=== PATIENT | female | born 1945 | race Caucasian/White ===

== ENCOUNTER 2016-10-20 15:02 | Inpatient (IN) | payer MEDICARE, OTHER ==
[2016-10-20] MEDS ORDERED: METHYLPREDNISOLONE INJ 125 MG/2 ML SDV IV ONE (15:10)
[2016-10-20] MEDS ORDERED: ALBUTEROL SULFATE 0.083% NEB 2.5 MG/3 ML AMPUL NEB ONE ×2 (15:10→15:13)
[2016-10-20] MEDS ORDERED: IPRATROPIUM/ALBUTEROL 0.5-2.5 MG/3 ML AMPUL NEB ONE (15:10)
--- NOTE | 2016-10-20 15:21 | ER Document Report ---
ED Respiratory Problem - General Stated Complaint: ALTERED MENTAL STATUS Time Seen by Provider: 10/20/16 15:09 Mode of Arrival: Stretcher Information source: Relative, Emergency Med Personnel TRAVEL OUTSIDE OF THE [place] IN LAST 30 DAYS: No - HPI Patient complains to provider of: COPD, Short of breath, Other - Altered mental status Onset: Other - 2-3 days Duration: Worse/persistent Context: Smoker Short of Breath: Severe Chest pain/discomfort: Tightness Notes: Patient is a 71-year-old female with a history of COPD who continues to smoke, is on oxygen at home, brought to the emergency room by EMS for change in mental status, daughter who accompanied patient to the emergency room reports that patient has had a wet but nonproductive cough over the last 2-3 days and has been having worsening mentation, she has been taking cough syrup for her cough as well and other family members turn her oxygen up to 8 L at home, over the last 12 hours her condition has significantly worsened, daughter knows of no fever, patient has been hospitalized and intubated in the past for COPD exacerbation, patient sounded at time of evaluation, EMS reports that her socks was in the mid 70s when they arrived prompting them to place her on CPAP which apparently stopped working in route thank you to the emergency department, she did receive 1 breathing treatment in route as well - Related Data Allergies/Adverse Reactions: albuterol sulfate [From DuoNeb] Allergy (Verified 10/06/14 22:21) allopurinol [From Zyloprim] Allergy (Verified 10/06/14 22:21) alprazolam [From Xanax] Allergy (Verified 10/06/14 22:21) amitriptyline HCl [From Elavil] Allergy (Verified 10/06/14 22:21) atorvastatin calcium [From Lipitor] Allergy (Verified 10/06/14 22:21) belladonna alkaloids [From Bellergal-S] Allergy (Verified 10/06/14 22:21) bupivacaine [Bupivacaine] Allergy (Verified 10/06/14 22:21) cefuroxime axetil [From Ceftin] Allergy (Verified 10/06/14 22:21) celecoxib [From Celebrex] Allergy (Verified 10/06/14 22:21) cimetidine [From Tagamet] Allergy (Verified 10/06/14 22:21) ciprofloxacin [Ciprofloxacin] Allergy (Verified 10/06/14 22:21) codeine [Codeine] Allergy (Verified 10/06/14 22:21) doxepin HCl [From Sinequan] Allergy (Verified 10/06/14 22:21) ergotamine tartrate [From Bellergal-S] Allergy (Verified 10/06/14 22:21) fluoxetine HCl [From Prozac] Allergy (Verified 10/06/14 22:21) hydroxyzine HCl [From Atarax] Allergy (Verified 10/06/14 22:21) indigotindisulfonic acid [From Indigo [place]] Allergy (Verified 10/11/15 07:27) ipratropium bromide [From DuoNeb] Allergy (Verified 10/06/14 22:21) lemon oil Allergy (Verified 10/06/14 22:21) malathion Allergy (Verified 10/06/14 22:21) mefenamic acid Allergy (Verified 10/06/14 22:21) metformin HCl [From Glucophage] Allergy (Verified 10/06/14 22:21) metoclopramide HCl [From Reglan] Allergy (Verified 10/06/14 22:21) Milk Containing Products Allergy (Verified 10/06/14 22:21) morphine Allergy (Verified 10/06/14 22:21) naproxen sodium [From Anaprox] Allergy (Verified 10/06/14 22:21) nefazodone HCl [From Serzone] Allergy (Verified 10/06/14 22:21) peanut Allergy (Verified 10/06/14 22:21) phenobarbital [From Bellergal-S] Allergy (Verified 10/06/14 22:21) phenylephrine tannate [From Deconsal CT] Allergy (Verified 10/06/14 22:21) pyrilamine tannate [From Deconsal CT] Allergy (Verified 10/06/14 22:21) sertraline HCl [From Zoloft] Allergy (Verified 10/06/14 22:21) sucralfate [From Carafate] Allergy (Verified 10/06/14 22:21) tolterodine tartrate [From Detrol] Allergy (Verified 10/06/14 22:21) tramadol Allergy (Verified 10/06/14 22:21) trazodone HCl [From Desyrel] Allergy (Verified 10/06/14 22:21) my-e Allergy (Uncoded 10/06/14 22:21) renuzil Allergy (Uncoded 10/06/14 22:21) surgical steel Allergy (Uncoded 10/06/14 22:21) Past Medical History - General Information source: Relative, Emergency Med Personnel - Social History Smoking Status: Current Every Day Smoker Family History: DM, Hypertension - Past Medical History Cardiac Medical History: Reports: Hx Congestive Heart Failure, Hx Hypertension Pulmonary Medical History: Reports: Hx COPD Endocrine Medical History: Reports: Hx Diabetes Mellitus Type 2 Past Surgical History: Reports: Hx Cholecystectomy, Hx Orthopedic Surgery - L Wrist - Immunizations Immunizations up to date: No Hx Diphtheria, Pertussis, Tetanus Vaccination: No Review of Systems - Review of Systems -: Yes ROS unobtainable due to patient's medical condition Constitutional: No symptoms reported EENT: No symptoms reported Cardiovascular: No symptoms reported Respiratory: See HPI Gastrointestinal: No symptoms reported Genitourinary: No symptoms reported Female Genitourinary: No symptoms reported Musculoskeletal: No symptoms reported Skin: No symptoms reported Hematologic/Lymphatic: No symptoms reported Neurological/Psychological: Confusion Physical Exam - Vital signs Vitals: Resp Pulse Ox 26 H 96 10/20/16 15:20 10/20/16 15:20 Interpretation: Hypoxic, Tachypneic - General General appearance: Other - Obtunded In distress: Moderate - HEENT Head: Normocephalic, Atraumatic Eyes: Periorbital edema Conjunctiva: Normal Extraocular movements intact: Yes Eyelashes: Normal Pupils: PERRL Mucous membranes: Dry - Respiratory Respiratory status: Respiratory distress, Depressed respirations Breath sounds: Decreased air movement, Rhonchi, Wheezing - Cardiovascular Rhythm: Regular Heart sounds: Normal auscultation Murmur: No - Abdominal Inspection: Obese Distension: No distension Bowel sounds: Normal Tenderness: Nontender Organomegaly: No organomegaly - Back Back: Normal, Nontender - Extremities General upper extremity: Normal inspection, Nontender, Normal color, Normal ROM , Normal temperature General lower extremity: Normal inspection, Nontender, Normal color, Normal ROM , Normal temperature, Normal weight bearing. No: Roman's sign - Neurological Cognition: Inattentive Gustavo Coma Scale Eye Opening: To Voice Gering Coma Scale Verbal: Confused Gustavo Coma Scale Motor: Withdraws to Pain Gering Coma Scale Total: 11 - Skin Skin Temperature: Warm Skin Moisture: Dry Skin Color: Normal Location of irregularity: Other - Multiple scabbed wounds to bilateral upper and lower extremities Course - Re-evaluation Re-evalutation: 10/20/16 16:07 More responsive on reevaluation, she opens her eyes to verbal stimuli and answers yes or no questions appropriately 10/20/16 17:46 It was discussed with Dr. Gillette, primary care provider who agrees to admit to the ICU for further evaluation and treatment - Vital Signs Vital signs: Temp Pulse Resp BP Pulse Ox 18 97 10/20/16 16:30 10/20/16 16:30 - Laboratory Result Diagrams: 10/20/16 15:25 10/20/16 15:09 Laboratory results interpreted by me: 10/20/16 10/20/16 10/20/16 15:09 15:25 15:25 WBC 10.8 H MCHC 31.6 L RDW 16.8 H Plt Count 120 L Seg Neutrophils % 78.5 H Lymphocytes % 11.3 L Absolute Neutrophils 8.5 H VBG pH VBG pCO2 VBG HCO3 Potassium 6.3 H* BUN 37 H Est GFR (Non-Af Amer) 55 L Glucose 233 H Creatine Kinase 25 L NT-Pro-B Natriuret Pep 4370 H Urine Protein 10/20/16 10/20/16 10/20/16 15:25 16:15 17:16 WBC MCHC RDW Plt Count Seg Neutrophils % Lymphocytes % Absolute Neutrophils VBG pH 7.10 L* 7.10 L* VBG pCO2 114.7 H* 123.1 H* VBG HCO3 34.9 H 37.3 H Potassium BUN Est GFR (Non-Af Amer) Glucose Creatine Kinase NT-Pro-B Natriuret Pep Urine Protein 100 H - Diagnostic Test Radiology reviewed: Image reviewed, Reports reviewed - EKG Interpretation by Me EKG shows normal: Sinus rhythm Rate: Bradycardia When compared to previous EKG there are: No significant change Critical Care Note - Critical Care Note Total time excluding time spent on procedures (mins): 60 Comments: Patient was hypercapnic and hypoxic respiratory failure requiring BiPAP, close observation and ICU admission Discharge - Discharge Clinical Impression: Hyperkalemia Hypercapnic respiratory failure Qualifiers: Chronicity: acute Qualified Code(s): J96.02 - Acute respiratory failure with hypercapnia Pneumonia Qualifiers: Pneumonia type: due to unspecified organism Laterality: left Lung location: lower lobe of lung Qualified Code(s): J18.1 - Lobar pneumonia, unspecified organism Condition: Serious Disposition: ADMITTED INPATIENT Admitting Provider: [facility] Unit Admitted: ICU
[2016-10-20 16:02] LABS: VENOUS BLOOD BASE EXCESS 1.3 mmol/L; VENOUS BLOOD HCO3 34.9 mmol/L (20-32)
[2016-10-20 16:04] LABS: VENOUS BLOOD PH 7.1 (7.30-7.42)
[2016-10-20 16:05] LABS: ABSOLUTE BASOPHILS # (AUTO) 0.1 10^3/uL (0.0-0.2); ABSOLUTE EOSINOPHILS # (AUTO) 0.1 10^3/uL (0.0-0.6); ABSOLUTE LYMPHOCYTES (AUTO) 1.2 10^3/uL (0.5-4.7); ABSOLUTE MONOCYTES (AUTO) 0.9 10^3/uL (0.1-1.4); ABSOLUTE NEUT (AUTO) 8.5 10^3/uL (1.7-8.2); BASOPHILS % (AUTO) 0.6 % (0-2); EOSINOPHILS % (AUTO) 1.1 % (0-6); HEMATOCRIT 43.4 % (36.0-47.0); HEMOGLOBIN 13.7 g/dL (12.0-15.5); HGB HCT DIFFERENCE -2.3; LYMPHOCYTES % (AUTO) 11.3 % (13-45); MEAN CORPUSCULAR HEMOGLOBIN 30.7 pg (27.0-33.4); MEAN CORPUSCULAR HGB CONC 31.6 g/dL (32.0-36.0); MEAN CORPUSCULAR VOLUME 97 fl (80-97); MONOCYTES % (AUTO) 8.5 % (3-13); RED BLOOD COUNT 4.46 10^6/uL (3.72-5.28); RED CELL DISTRIBUTION WIDTH 16.8 % (11.5-14.0); SEGMENTED NEUTROPHILS % (AUTO) 78.5 % (42-78); VENOUS BLOOD PCO2 114.7 mmHg (35-63); WHITE BLOOD COUNT 10.8 10^3/uL (4.0-10.5)
--- NOTE | 2016-10-20 16:23 | RADIOLOGY REPORT (SQ) ---
EXAM DESCRIPTION: CHEST SINGLE VIEW COMPLETED DATE/TIME: 10/20/2016 3:51 pm REASON FOR STUDY: DB COMPARISON: 10/09/2015 and 04/06/2010. EXAM PARAMETERS: NUMBER OF VIEWS: One view. TECHNIQUE: Single frontal radiographic view of the chest acquired. RADIATION DOSE: NA LIMITATIONS: None. FINDINGS: LUNGS AND PLEURA: Diffuse interstitial prominence with asymmetric basilar densities, parti cularly on the right. No large pleural effusion. No pneumothorax. MEDIASTINUM AND HILAR STRUCTURES: No masses. Contour normal. HEART AND VASCULAR STRUCTURES: Cardiomegaly. BONES: No acute findings. HARDWARE: None in the chest. OTHER: No other significant finding. IMPRESSION: STABLE CARDIOMEGALY WITH APPARENT CHRONIC PARENCHYMAL SCARRING. RIGHT BASILAR DENSITY M AY BE CHRONIC OR COULD BE DUE TO PNEUMONIA. TECHNICAL DOCUMENTATION: JOB ID: [id number]
[2016-10-20 16:24] LABS: ALANINE AMINOTRANSFERASE 26 U/L (9-52); ALKALINE PHOSPHATASE 87 U/L (38-126); ANION GAP 7 (5-19); ASPARTATE AMINO TRANSFERASE 22 U/L (14-36); BILIRUBIN,DIRECT 0.4 mg/dL (0.0-0.4); BILIRUBIN,TOTAL 0.5 mg/dL (0.2-1.3); BLOOD UREA NITROGEN 37 mg/dL (7-20); CARBON DIOXIDE 30 mmol/L (22-30); CHLORIDE 104 mmol/L (98-107); CREATINE KINASE 25 U/L (30-135); GLUCOSE 233 mg/dL (75-110); SODIUM 141.4 mmol/L (137-145); TOTAL PROTEIN 7.8 g/dL (6.3-8.2)
[2016-10-20 16:26] LABS: ALCOHOL < 10 mg/dL (NONE DETECTED)
[2016-10-20 16:27] LABS: POTASSIUM 6.3 mmol/L (3.6-5.0)
[2016-10-20] MEDS ORDERED: CEFTRIAXONE 1 GM/D5W RTU 1 GM/50 ML RTUPB IV ONE (16:27)
[2016-10-20] MEDS ORDERED: AZITHROMYCIN INJ 500 MG VIAL IV ONE (16:27)
[2016-10-20] MEDS ORDERED: DEXTROSE 50%-WATER 25 GM/50 ML DISP.SYRIN IV ONE (16:28)
[2016-10-20] MEDS ORDERED: CALCIUM GLUCONATE 1000 MG/10 ML INJ IV ONE (16:28)
[2016-10-20] MEDS ORDERED: INSULIN REG, HUMAN 100 UNIT/ML 3 ML VIAL (PYX) IV ONE (16:28)
[2016-10-20 16:30] LABS: CREATINE KINASE MB 2.13 ng/mL (<4.55)
[2016-10-20 16:34] LABS: TROPONIN I < 0.012 ng/mL
[2016-10-20 17:19] LABS: APPEARANCE,URINE SLIGHTLY-CLOUDY; BILIRUBIN,URINE NEGATIVE (NEGATIVE); GLUCOSE, URINE NEGATIVE (NEGATIVE); KETONES,URINE NEGATIVE (NEGATIVE); LEUKOCYTE ESTERASE,URINE NEGATIVE (NEGATIVE); NITRITE,URINE NEGATIVE (NEGATIVE); PROTEIN,URINE 100 mg/dL (NEGATIVE); URINE SPECIFIC GRAVITY 1.021; UROBILINOGEN,URINE NEGATIVE mg/dL (<2.0)
[2016-10-20 17:28] LABS: URINE BARBITURATES SCREEN NEGATIVE; URINE METHADONE SCREEN NEGATIVE; URINE OPIATES LOW NEGATIVE; URINE PHENCYCLIDINE SCREEN NEGATIVE
[2016-10-20 17:34] LABS: VENOUS BLOOD BASE EXCESS 3.2 mmol/L; VENOUS BLOOD HCO3 37.3 mmol/L (20-32)
[2016-10-20 17:37] LABS: VENOUS BLOOD PH 7.1 (7.30-7.42)
[2016-10-20 17:38] LABS: VENOUS BLOOD PCO2 123.1 mmHg (35-63)
--- NOTE | 2016-10-20 19:31 | EKG REPORT ---
SEVERITY:- ABNORMAL ECG - SINUS RHYTHM PROBABLE LEFT ATRIAL ABNORMALITY RIGHT AXIS DEVIATION NONSPECIFIC T ABNORMALITIES, LATERAL LEADS : Confirmed by: Zeeshan Castaneda MD 20-Oct-2016 19:30:31
[2016-10-20] MEDS ORDERED: NORMAL SALINE 1000 ML 1,000 ML IV PRN (20:20)
[2016-10-20] MEDS ORDERED: DEXTROSE 40% GEL 15 GM TUBE PO PRN ×2 (20:28)
[2016-10-20] MEDS ORDERED: GLUCAGON,HUMAN RECOMB 1 MG INJ IM PRN (20:28)
[2016-10-20] MEDS ORDERED: DEXTROSE 50%-WATER 25 GM/50 ML DISP.SYRIN IV PRN ×2 (20:28)
[2016-10-20] MEDS ORDERED: ROCURONIUM BROMIDE INJ 50 MG/5 ML VIAL IV ONE ×2 (20:29→20:45)
[2016-10-20] MEDS ORDERED: ETOMIDATE INJ/PF 20 MG/10 ML SDV IV ONE (20:29)
[2016-10-20] MEDS ORDERED: NORMAL SALINE 1000 ML 1,000 ML IV ONE (20:30)
--- NOTE | 2016-10-20 20:54 | RADIOLOGY REPORT (SQ) ---
EXAM DESCRIPTION: CHEST SINGLE VIEW COMPLETED DATE/TIME: 10/20/2016 8:42 pm REASON FOR STUDY: intubated COMPARISON: 10/20/2016 at 1545 hours NUMBER OF VIEWS: One view. TECHNIQUE: Single frontal radiographic image of the chest acquired. LIMITATIONS: None. FINDINGS: ENDOTRACHEAL TUBE: Appropriate location with tip overlying the lower trachea, approximatel y 2.9 cm above the bernice. OTHER SUPPORT DEVICES: Nasogastric catheter is present with tip overlying the body of the stomach. CHANGES IN RADIOGRAPHIC FINDINGS: Increased bilateral confluent and interstitial opacities. No pneu mothorax. Small left pleural effusion. . HARDWARE: None in the chest. OTHER: No other significant finding. IMPRESSION: Appropriate ETT location with tip overlying the lower trachea, approximately 2.9 cm abov e the bernice.Increased bilateral confluent and interstitial opacities. No pneumothorax. Small left pleural effusion. TECHNICAL DOCUMENTATION: JOB ID: [id number] [employer]- All Rights Reserved
[2016-10-20] MEDS: PROPOFOL 100 ML IV PRN (20:55)
[2016-10-20] MEDS ORDERED: AZITHROMYCIN 500 MG in DEXTROSE 5%-WATER 250 ML IV SCH (22:00)
[2016-10-20 22:19] LABS: HEMATOCRIT 45.1 % (36.0-47.0); HEMOGLOBIN 14.1 g/dL (12.0-15.5); HGB HCT DIFFERENCE -2.8; MEAN CORPUSCULAR HEMOGLOBIN 29.9 pg (27.0-33.4); MEAN CORPUSCULAR HGB CONC 31.1 g/dL (32.0-36.0); MEAN CORPUSCULAR VOLUME 96 fl (80-97); RED BLOOD COUNT 4.71 10^6/uL (3.72-5.28); RED CELL DISTRIBUTION WIDTH 16.3 % (11.5-14.0); WHITE BLOOD COUNT 11.1 10^3/uL (4.0-10.5)
[2016-10-20 22:28] LABS: PROTHROMBIN TIME 14.1 SEC (11.4-15.4)
[2016-10-20 22:29] LABS: PARTIAL THROMBOPLASTIN TIME 34.5 SEC (23.5-35.8)
[2016-10-20 22:39] LABS: ALANINE AMINOTRANSFERASE 25 U/L (9-52); ALBUMIN 3.7 g/dL (3.5-5.0); ALKALINE PHOSPHATASE 87 U/L (38-126); AMYLASE 54 U/L (30-110); ANION GAP 8 (5-19); ASPARTATE AMINO TRANSFERASE 23 U/L (14-36); BILIRUBIN,DIRECT 0.5 mg/dL (0.0-0.4); BILIRUBIN,TOTAL 0.7 mg/dL (0.2-1.3); BLOOD UREA NITROGEN 31 mg/dL (7-20); CALCIUM 9.2 mg/dL (8.4-10.2); CARBON DIOXIDE 28 mmol/L (22-30); CHLORIDE 105 mmol/L (98-107); CREATININE RESULT 0.84 mg/dL (0.52-1.25); GLUCOSE 203 mg/dL (75-110); LIPASE 46.7 U/L (23-300); MAGNESIUM 2.1 mg/dL (1.6-2.3); PHOSPHORUS 2.7 mg/dL (2.5-4.5); SODIUM 140.9 mmol/L (137-145); TOTAL PROTEIN 7.2 g/dL (6.3-8.2)
[2016-10-20 22:45] LABS: BASOPHILS % (MANUAL) 0 % (0-2); EOSINOPHILS % (MANUAL) 1 % (0-6); LYMPHOCYTES % (MANUAL) 6 % (13-45); TOTAL CELLS COUNTED 100; TOXIC GRANULATION SLIGHT
[2016-10-20 22:46] LABS: ANISOCYTOSIS 1+; POIKILOCYTOSIS SLIGHT
[2016-10-20 22:49] LABS: POTASSIUM 6.1 mmol/L (3.6-5.0)
[2016-10-20 22:54] LABS: TROPONIN I < 0.012 ng/mL
[2016-10-20 23:10] LABS: THYROID STIMULATING HORMONE 2.58 uIU/mL (0.47-4.68)
[2016-10-20 23:40] LABS: ARTERIAL BLOOD BASE EXCESS 1.2 mmol/L; ARTERIAL BLOOD O2 SATURATION 91.2 % (94-98)
[2016-10-21] MEDS: PROPOFOL 100 ML IV PRN ×6 (00:34→21:08)
[2016-10-21] MEDS: METHYLPREDNISOLONE INJ 125 MG/2 ML SDV IV SCH ×6 (00:41→21:07)
[2016-10-21 04:43] LABS: ABSOLUTE LYMPHOCYTES (AUTO) 0.7 10^3/uL (0.5-4.7); ABSOLUTE MONOCYTES (AUTO) 0.2 10^3/uL (0.1-1.4); ABSOLUTE NEUT (AUTO) 6.6 10^3/uL (1.7-8.2); BASOPHILS % (AUTO) 0.2 % (0-2); EOSINOPHILS % (AUTO) 0.4 % (0-6); HEMATOCRIT 41.5 % (36.0-47.0); HGB HCT DIFFERENCE -2.5; MEAN CORPUSCULAR HEMOGLOBIN 29.7 pg (27.0-33.4); MEAN CORPUSCULAR HGB CONC 31.2 g/dL (32.0-36.0); MEAN CORPUSCULAR VOLUME 95 fl (80-97); MONOCYTES % (AUTO) 2.4 % (3-13); RED BLOOD COUNT 4.36 10^6/uL (3.72-5.28); RED CELL DISTRIBUTION WIDTH 16.3 % (11.5-14.0); WHITE BLOOD COUNT 7.5 10^3/uL (4.0-10.5)
[2016-10-21 05:05] LABS: CREATINE KINASE MB 1.78 ng/mL (<4.55)
[2016-10-21 05:07] LABS: TROPONIN I < 0.012 ng/mL
[2016-10-21 05:43] LABS: ARTERIAL BLOOD BASE EXCESS 4.9 mmol/L
[2016-10-21 05:58] LABS: ALANINE AMINOTRANSFERASE 20 U/L (9-52); ALBUMIN 2.7 g/dL (3.5-5.0); ALKALINE PHOSPHATASE 67 U/L (38-126); ANION GAP 5 (5-19); ASPARTATE AMINO TRANSFERASE 13 U/L (14-36); BILIRUBIN,DIRECT 0.4 mg/dL (0.0-0.4); BILIRUBIN,TOTAL 0.5 mg/dL (0.2-1.3); BLOOD UREA NITROGEN 22 mg/dL (7-20); CALCIUM 8.6 mg/dL (8.4-10.2); CARBON DIOXIDE 27 mmol/L (22-30); CHLORIDE 107 mmol/L (98-107); CHOLESTEROL 104.16 mg/dL (0-200); CREATININE RESULT 0.64 mg/dL (0.52-1.25); Direct HDL 32 mg/dL (>40); GLUCOSE 178 mg/dL (75-110); SODIUM 138.9 mmol/L (137-145); TOTAL PROTEIN 5.4 g/dL (6.3-8.2); TRIGLYCERIDES 101 mg/dL (<150)
[2016-10-21 06:09] LABS: DIRECT LDL 65 mg/dL (<100)
[2016-10-21 06:11] LABS: CREATINE KINASE < 20 U/L (30-135)
[2016-10-21 06:20] LABS: POTASSIUM 4.7 mmol/L (3.6-5.0)
[2016-10-21] MEDS: LEVOTHYROXINE SODIUM 0.1 MG TABLET PO SCH (09:32)
[2016-10-21] MEDS: LEVOTHYROXINE SODIUM 0.05 MG TABLET PO SCH (09:33)
[2016-10-21] MEDS: ENOXAPARIN SODIUM INJ 30 MG/0.3 ML DISP.SYRIN SUBCUT SCH (09:33)
[2016-10-21 11:36] LABS: ARTERIAL BLOOD BASE EXCESS 3.9 mmol/L; ARTERIAL BLOOD O2 SATURATION 90.1 % (94-98)
--- NOTE | 2016-10-21 11:58 | RADIOLOGY REPORT (SQ) ---
EXAM DESCRIPTION: CHEST SINGLE VIEW COMPLETED DATE/TIME: 10/21/2016 11:43 am REASON FOR STUDY: mechanical ventilation COMPARISON: 10/20/2016. FINDINGS: AP portable single view chest semi upright. Timed approximately 1131 hours. Endotracheal and nasogastric tubes appropriate. Slightly improved interstitial pattern and vascular congestion throughout the lungs. Some persistent airspace disease left mid lung zone and base. No overt pneumothorax. IMPRESSION: Slightly improved aeration as above. This suggests improving edema. Appropriate lines and tubes. TECHNICAL DOCUMENTATION: JOB ID: [id number]
[2016-10-21 12:16] LABS: CREATINE KINASE MB 1.69 ng/mL (<4.55); TROPONIN I 0.02 ng/mL
--- NOTE | 2016-10-21 13:14 | PDOC H&P ---
History of Present Illness Admission Date/PCP: 10/20/16 20:20 History of Present Illness: GABINO ALEXANDER is a 71 year old female, she has a history of chronic obstructive pulmonary disease, recalcitrant smoker, she was brought to the emergency room by EMS for evaluation of altered mental status and respiratory symptoms. She was accompanied by her daughter, she stated that patient has had productive cough for the last few days in the last 1-2 days she has been having worsening mentation, the family members are at increased oxygen up to 8 L at home in the last 12 hours her condition has worsened significantly since then. She was evaluated in the emergency room she had venous blood gas in the ER that showed PCO2 over 100, she was managed initially in the emergency room with positive pressure ventilation, BiPAP, she showed improvement initially and it was decided to admit to intermediate care unit. Her condition got worse, she became poorly responsive, the PCO2 increased it was decided at that time to tracheally intubate her on mechanical ventilation. The initial vent setting was SIMV of 12, tidal volume 600 Po2 100% pressure support 10,PEEP 5. She was admitted in intensive care unit. When I saw the patient she was intubated no history could be obtained from the patient. The chart was reviewed, she is well -known to me she is a recalcitrant smoker, she has COPD with pulmonary fibrosis the comprehensive metabolic panel revealed potassium 6.3, serum creatinine was 1.0 suggesting that the hyperkalemia is most likely from transcellular shift of potassium. Past Medical History Cardiac Medical History: Reports: Peripheral Vascular Disease Pulmonary Medical History: Reports: Chronic Obstructive Pulmonary Disease (COPD) Endocrine Medical History: Reports: Diabetes Mellitus Type 2, Hypothyroidism Past Surgical History Past Surgical History: Reports: Cholecystectomy, Orthopedic Surgery - L Wrist Social History Smoking Status: Current Every Day Smoker Cigarettes Packs Per Day: 2 Number of Years Smokin Frequency of Alcohol Use: None Hx Recreational Drug Use: No Drugs: None Hx Prescription Drug Abuse: No - Advance Directive Resuscitation Status: Full Code Family History Family History: DM, Hypertension Parental Family History Reviewed: Yes Children Family History Reviewed: Yes Sibling(s) Family History Reviewed.: Yes Medication/Allergy Home Medications: Albuterol Sulfate [Albuterol Sulfate 2.5mg/3 mL] 1 vial IH [id number] PRN 10/20/16 Albuterol Sulfate [Proair Hfa] 2 puff IN Q4HP PRN 10/20/16 Aspirin [Aspirin 325 mg Tablet] 325 mg PO DAILY 10/20/16 Furosemide [Lasix 40 mg Tablet] 40 mg PO DAILY 10/20/16 Guaifenesin/D-Methorphan Hb/PE [Robitussin Cough-Cold Cf Liq] 5 ml PO Q12HP PRN 10/20/16 Levothyroxine Sodium [Synthroid] 50 mcg PO DAILY 10/20/16 Levothyroxine Sodium [Synthroid] 200 mcg PO DAILY 10/20/16 Nystatin [Mycostatin Topical Powder 15 gm] 1 applic TP Q12 10/20/16 Potassium Chloride [Klor-Con] 20 meq PO DAILY 10/20/16 Allergies/Adverse Reactions: albuterol sulfate [From DuoNeb] Allergy (Verified 10/06/14 22:21) allopurinol [From Zyloprim] Allergy (Verified 10/06/14 22:21) alprazolam [From Xanax] Allergy (Verified 10/06/14 22:21) amitriptyline HCl [From Elavil] Allergy (Verified 10/06/14 22:21) atorvastatin calcium [From Lipitor] Allergy (Verified 10/06/14 22:21) belladonna alkaloids [From Bellergal-S] Allergy (Verified 10/06/14 22:21) bupivacaine [Bupivacaine] Allergy (Verified 10/06/14 22:21) cefuroxime axetil [From Ceftin] Allergy (Verified 10/06/14 22:21) celecoxib [From Celebrex] Allergy (Verified 10/06/14 22:21) cimetidine [From Tagamet] Allergy (Verified 10/06/14 22:21) ciprofloxacin [Ciprofloxacin] Allergy (Verified 10/06/14 22:21) codeine [Codeine] Allergy (Verified 10/06/14 22:21) doxepin HCl [From Sinequan] Allergy (Verified 10/06/14 22:21) ergotamine tartrate [From Bellergal-S] Allergy (Verified 10/06/14 22:21) fluoxetine HCl [From Prozac] Allergy (Verified 10/06/14 22:21) hydroxyzine HCl [From Atarax] Allergy (Verified 10/06/14 22:21) indigotindisulfonic acid [From Indigo [place]] Allergy (Verified 10/11/15 07:27) ipratropium bromide [From DuoNeb] Allergy (Verified 10/06/14 22:21) lemon oil Allergy (Verified 10/06/14 22:21) malathion Allergy (Verified 10/06/14 22:21) mefenamic acid Allergy (Verified 10/06/14 22:21) metformin HCl [From Glucophage] Allergy (Verified 10/06/14 22:21) metoclopramide HCl [From Reglan] Allergy (Verified 10/06/14 22:21) Milk Containing Products Allergy (Verified 10/06/14 22:21) morphine Allergy (Verified 10/06/14 22:21) naproxen sodium [From Anaprox] Allergy (Verified 10/06/14 22:21) nefazodone HCl [From Serzone] Allergy (Verified 10/06/14 22:21) peanut Allergy (Verified 10/06/14 22:21) phenobarbital [From Bellergal-S] Allergy (Verified 10/06/14 22:21) phenylephrine tannate [From Deconsal CT] Allergy (Verified 10/06/14 22:21) pyrilamine tannate [From Deconsal CT] Allergy (Verified 10/06/14 22:21) sertraline HCl [From Zoloft] Allergy (Verified 10/06/14 22:21) sucralfate [From Carafate] Allergy (Verified 10/06/14 22:21) tolterodine tartrate [From Detrol] Allergy (Verified 10/06/14 22:21) tramadol Allergy (Verified 10/06/14 22:21) trazodone HCl [From Desyrel] Allergy (Verified 10/06/14 22:21) my-e Allergy (Uncoded 10/06/14 22:21) renuzil Allergy (Uncoded 10/06/14 22:21) surgical steel Allergy (Uncoded 10/06/14 22:21) Review of Systems ROS unobtainable: Due to endotracheal tube, Due to mental status Physical Exam Vital Signs: Temp Pulse Resp BP Pulse Ox 98.2 F 48 L 14 89/37 L 98 10/21/16 10:48 10/21/16 08:00 10/21/16 10:48 10/21/16 10:48 10/21/16 12:00 Intake & Output 10/20/16 10/21/16 10/22/16 06:59 06:59 06:59 Intake Total 855 Output Total 550 330 Balance 305 -330 Weight 81.1 kg General appearance: PRESENT: other - Patient is sedated, intubated on mechanical ventilation Respiratory exam: PRESENT: other - There is equal air entry on both lung sharp with scattered wheeze Cardiovascular exam: PRESENT: +S1, +S2 GI/Abdominal exam: PRESENT: soft Skin exam: PRESENT: abrasion, dry, petechiae, rash, vesicles Results Laboratory Results: 10/21/16 04:29 10/21/16 05:20 10/20/16 10/20/16 10/20/16 21:59 21:59 21:59 WBC 11.1 H RBC 4.71 Hgb 14.1 Hct 45.1 MCV 96 MCH 29.9 MCHC 31.1 L RDW 16.3 H Plt Count 94 L Seg Neutrophils % Not Reportable Lymphocytes % Not Reportable Monocytes % Not Reportable Eosinophils % Not Reportable Basophils % Not Reportable Absolute Neutrophils Not Reportable Absolute Lymphocytes Not Reportable Absolute Monocytes Not Reportable Absolute Eosinophils Not Reportable Absolute Basophils Not Reportable Carbonic Acid HCO3/H2CO3 Ratio ABG pH ABG pCO2 ABG pO2 ABG HCO3 ABG O2 Saturation ABG Base Excess FiO2 Sodium 140.9 Potassium 6.1 H* Chloride 105 Carbon Dioxide 28 Anion Gap 8 BUN 31 H Creatinine 0.84 Est GFR ( Amer) > 60 Est GFR (Non-Af Amer) > 60 Glucose 203 H Calcium 9.2 Phosphorus 2.7 Magnesium 2.1 Total Bilirubin 0.7 AST 23 ALT 25 Alkaline Phosphatase 87 Ammonia 17.7 Total Protein 7.2 Albumin 3.7 Triglycerides Cholesterol LDL Cholesterol Direct VLDL Cholesterol HDL Cholesterol Amylase 54 Lipase 46.7 TSH Free T4 10/20/16 10/20/16 10/21/16 21:59 23:30 04:29 WBC 7.5 RBC 4.36 Hgb 13.0 Hct 41.5 MCV 95 MCH 29.7 MCHC 31.2 L RDW 16.3 H Plt Count 95 L Seg Neutrophils % 88.0 H Lymphocytes % 9.0 L Monocytes % 2.4 L Eosinophils % 0.4 Basophils % 0.2 Absolute Neutrophils 6.6 Absolute Lymphocytes 0.7 Absolute Monocytes 0.2 Absolute Eosinophils 0.0 Absolute Basophils 0.0 Carbonic Acid 1.47 H HCO3/H2CO3 Ratio 18:1 ABG pH 7.36 ABG pCO2 48.9 H ABG pO2 63.1 L ABG HCO3 27.3 H ABG O2 Saturation 91.2 L ABG Base Excess 1.2 FiO2 40% Sodium Potassium Chloride Carbon Dioxide Anion Gap BUN Creatinine Est GFR ( Amer) Est GFR (Non-Af Amer) Glucose Calcium Phosphorus Magnesium Total Bilirubin AST ALT Alkaline Phosphatase Ammonia Total Protein Albumin Triglycerides Cholesterol LDL Cholesterol Direct VLDL Cholesterol HDL Cholesterol Amylase Lipase TSH 2.58 Free T4 0.79 10/21/16 10/21/16 10/21/16 04:29 05:20 05:20 WBC RBC Hgb Hct MCV MCH MCHC RDW Plt Count Seg Neutrophils % Lymphocytes % Monocytes % Eosinophils % Basophils % Absolute Neutrophils Absolute Lymphocytes Absolute Monocytes Absolute Eosinophils Absolute Basophils Carbonic Acid 1.29 HCO3/H2CO3 Ratio 22:1 ABG pH 7.46 H ABG pCO2 42.7 ABG pO2 57.1 L ABG HCO3 29.3 H ABG O2 Saturation 91.0 L ABG Base Excess 4.9 FiO2 40% Sodium Cancelled 138.9 Potassium Cancelled 4.7 D Chloride Cancelled 107 Carbon Dioxide Cancelled 27 Anion Gap Cancelled 5 BUN Cancelled 22 H Creatinine Cancelled 0.64 Est GFR ( Amer) Cancelled > 60 Est GFR (Non-Af Amer) Cancelled > 60 Glucose Cancelled 178 H Calcium Cancelled 8.6 Phosphorus Magnesium Total Bilirubin Cancelled 0.5 AST Cancelled 13 L ALT Cancelled 20 Alkaline Phosphatase Cancelled 67 Ammonia Total Protein Cancelled 5.4 L Albumin Cancelled 2.7 L Triglycerides Cancelled 101 Cholesterol Cancelled 104.16 LDL Cholesterol Direct Cancelled 65 VLDL Cholesterol Cancelled 20.0 HDL Cholesterol Cancelled 32 L Amylase Lipase TSH Free T4 10/21/16 11:21 WBC RBC Hgb Hct MCV MCH MCHC RDW Plt Count Seg Neutrophils % Lymphocytes % Monocytes % Eosinophils % Basophils % Absolute Neutrophils Absolute Lymphocytes Absolute Monocytes Absolute Eosinophils Absolute Basophils Carbonic Acid 1.47 H HCO3/H2CO3 Ratio 20:1 ABG pH 7.40 ABG pCO2 48.8 H ABG pO2 58.5 L ABG HCO3 29.6 H ABG O2 Saturation 90.1 L ABG Base Excess 3.9 FiO2 35% Sodium Potassium Chloride Carbon Dioxide Anion Gap BUN Creatinine Est GFR ( Amer) Est GFR (Non-Af Amer) Glucose Calcium Phosphorus Magnesium Total Bilirubin AST ALT Alkaline Phosphatase Ammonia Total Protein Albumin Triglycerides Cholesterol LDL Cholesterol Direct VLDL Cholesterol HDL Cholesterol Amylase Lipase TSH Free T4 10/20/16 10/20/16 10/21/16 21:59 21:59 04:29 Creatine Kinase 22 L Cancelled CK-MB (CK-2) 1.90 Troponin I < 0.012 10/21/16 10/21/16 10/21/16 04:29 05:20 11:25 Creatine Kinase < 20 L 28 L CK-MB (CK-2) 1.78 Troponin I < 0.012 10/21/16 11:25 Creatine Kinase CK-MB (CK-2) 1.69 Troponin I 0.020 Impressions: Chest X-Ray 10/21/16 00:00 IMPRESSION: Slightly improved aeration as above. This suggests improving edema. Appropriate lines and tubes. Assessment & Plan - Diagnosis (1) Acute hypercapnic respiratory failure Is this a current diagnosis for this admission?: Yes Plan: She required mechanical ventilation, the initial vent setting already stated (2) Acute exacerbation of chronic obstructive pulmonary disease (COPD) Is this a current diagnosis for this admission?: Yes Plan: Start intravenous Solu-Medrol 125 mg IV every 8, IV antibiotic, duo nebs (3) Hyperkalemia Is this a current diagnosis for this admission?: Yes Plan: This most likely from transcellular shift, she treated with Kayexalate
--- NOTE | 2016-10-21 13:20 | PDOC PROGRESS REPORT ---
Subjective Progress Note for:: 10/21/16 Subjective:: Patient sedated, intubated, she continues to require mechanical ventilation. Physical Exam Vital Signs: Temp Pulse Resp BP Pulse Ox 98.2 F 48 L 14 89/37 L 98 10/21/16 10:48 10/21/16 08:00 10/21/16 10:48 10/21/16 10:48 10/21/16 12:00 Intake & Output 10/20/16 10/21/16 10/22/16 06:59 06:59 06:59 Intake Total 855 Output Total 550 330 Balance 305 -330 Weight 81.1 kg Eye exam: PRESENT: PERRLA Respiratory exam: PRESENT: rales Cardiovascular exam: PRESENT: +S1, +S2 GI/Abdominal exam: PRESENT: soft Results Laboratory Results: 10/21/16 04:29 10/21/16 05:20 10/20/16 10/20/16 10/20/16 21:59 21:59 21:59 WBC 11.1 H RBC 4.71 Hgb 14.1 Hct 45.1 MCV 96 MCH 29.9 MCHC 31.1 L RDW 16.3 H Plt Count 94 L Seg Neutrophils % Not Reportable Lymphocytes % Not Reportable Monocytes % Not Reportable Eosinophils % Not Reportable Basophils % Not Reportable Absolute Neutrophils Not Reportable Absolute Lymphocytes Not Reportable Absolute Monocytes Not Reportable Absolute Eosinophils Not Reportable Absolute Basophils Not Reportable Carbonic Acid HCO3/H2CO3 Ratio ABG pH ABG pCO2 ABG pO2 ABG HCO3 ABG O2 Saturation ABG Base Excess FiO2 Sodium 140.9 Potassium 6.1 H* Chloride 105 Carbon Dioxide 28 Anion Gap 8 BUN 31 H Creatinine 0.84 Est GFR ( Amer) > 60 Est GFR (Non-Af Amer) > 60 Glucose 203 H Calcium 9.2 Phosphorus 2.7 Magnesium 2.1 Total Bilirubin 0.7 AST 23 ALT 25 Alkaline Phosphatase 87 Ammonia 17.7 Total Protein 7.2 Albumin 3.7 Triglycerides Cholesterol LDL Cholesterol Direct VLDL Cholesterol HDL Cholesterol Amylase 54 Lipase 46.7 TSH Free T4 10/20/16 10/20/16 10/21/16 21:59 23:30 04:29 WBC 7.5 RBC 4.36 Hgb 13.0 Hct 41.5 MCV 95 MCH 29.7 MCHC 31.2 L RDW 16.3 H Plt Count 95 L Seg Neutrophils % 88.0 H Lymphocytes % 9.0 L Monocytes % 2.4 L Eosinophils % 0.4 Basophils % 0.2 Absolute Neutrophils 6.6 Absolute Lymphocytes 0.7 Absolute Monocytes 0.2 Absolute Eosinophils 0.0 Absolute Basophils 0.0 Carbonic Acid 1.47 H HCO3/H2CO3 Ratio 18:1 ABG pH 7.36 ABG pCO2 48.9 H ABG pO2 63.1 L ABG HCO3 27.3 H ABG O2 Saturation 91.2 L ABG Base Excess 1.2 FiO2 40% Sodium Potassium Chloride Carbon Dioxide Anion Gap BUN Creatinine Est GFR ( Amer) Est GFR (Non-Af Amer) Glucose Calcium Phosphorus Magnesium Total Bilirubin AST ALT Alkaline Phosphatase Ammonia Total Protein Albumin Triglycerides Cholesterol LDL Cholesterol Direct VLDL Cholesterol HDL Cholesterol Amylase Lipase TSH 2.58 Free T4 0.79 10/21/16 10/21/16 10/21/16 04:29 05:20 05:20 WBC RBC Hgb Hct MCV MCH MCHC RDW Plt Count Seg Neutrophils % Lymphocytes % Monocytes % Eosinophils % Basophils % Absolute Neutrophils Absolute Lymphocytes Absolute Monocytes Absolute Eosinophils Absolute Basophils Carbonic Acid 1.29 HCO3/H2CO3 Ratio 22:1 ABG pH 7.46 H ABG pCO2 42.7 ABG pO2 57.1 L ABG HCO3 29.3 H ABG O2 Saturation 91.0 L ABG Base Excess 4.9 FiO2 40% Sodium Cancelled 138.9 Potassium Cancelled 4.7 D Chloride Cancelled 107 Carbon Dioxide Cancelled 27 Anion Gap Cancelled 5 BUN Cancelled 22 H Creatinine Cancelled 0.64 Est GFR ( Amer) Cancelled > 60 Est GFR (Non-Af Amer) Cancelled > 60 Glucose Cancelled 178 H Calcium Cancelled 8.6 Phosphorus Magnesium Total Bilirubin Cancelled 0.5 AST Cancelled 13 L ALT Cancelled 20 Alkaline Phosphatase Cancelled 67 Ammonia Total Protein Cancelled 5.4 L Albumin Cancelled 2.7 L Triglycerides Cancelled 101 Cholesterol Cancelled 104.16 LDL Cholesterol Direct Cancelled 65 VLDL Cholesterol Cancelled 20.0 HDL Cholesterol Cancelled 32 L Amylase Lipase TSH Free T4 10/21/16 11:21 WBC RBC Hgb Hct MCV MCH MCHC RDW Plt Count Seg Neutrophils % Lymphocytes % Monocytes % Eosinophils % Basophils % Absolute Neutrophils Absolute Lymphocytes Absolute Monocytes Absolute Eosinophils Absolute Basophils Carbonic Acid 1.47 H HCO3/H2CO3 Ratio 20:1 ABG pH 7.40 ABG pCO2 48.8 H ABG pO2 58.5 L ABG HCO3 29.6 H ABG O2 Saturation 90.1 L ABG Base Excess 3.9 FiO2 35% Sodium Potassium Chloride Carbon Dioxide Anion Gap BUN Creatinine Est GFR ( Amer) Est GFR (Non-Af Amer) Glucose Calcium Phosphorus Magnesium Total Bilirubin AST ALT Alkaline Phosphatase Ammonia Total Protein Albumin Triglycerides Cholesterol LDL Cholesterol Direct VLDL Cholesterol HDL Cholesterol Amylase Lipase TSH Free T4 10/20/16 10/20/16 10/21/16 21:59 21:59 04:29 Creatine Kinase 22 L Cancelled CK-MB (CK-2) 1.90 Troponin I < 0.012 10/21/16 10/21/16 10/21/16 04:29 05:20 11:25 Creatine Kinase < 20 L 28 L CK-MB (CK-2) 1.78 Troponin I < 0.012 10/21/16 11:25 Creatine Kinase CK-MB (CK-2) 1.69 Troponin I 0.020 Impressions: Chest X-Ray 10/21/16 00:00 IMPRESSION: Slightly improved aeration as above. This suggests improving edema. Appropriate lines and tubes. Assessment & Plan - Diagnosis (1) Acute hypercapnic respiratory failure Is this a current diagnosis for this admission?: Yes Plan: The ABG on present vent setting, pH 7.4 PO2 58.5 bicarbonate 29 (, vent setting SIMV of 12, tidal volume 500 FiO2 of 35% (2) Acute exacerbation of chronic obstructive pulmonary disease (COPD) Is this a current diagnosis for this admission?: Yes Plan: Continue Solu-Medrol and antibiotic (3) Hyperkalemia Is this a current diagnosis for this admission?: Yes Plan: Resolved
[2016-10-21] MEDS ORDERED: ALBUTEROL SULFATE 0.083% NEB 2.5 MG/3 ML AMPUL NEB PRN (14:30)
[2016-10-21] MEDS: IPRATROPIUM/ALBUTEROL 0.5-2.5 MG/3 ML AMPUL NEB SCH ×2 (14:36→20:05)
[2016-10-21 15:31] LABS: ARTERIAL BLOOD BASE EXCESS 3.5 mmol/L; ARTERIAL BLOOD O2 SATURATION 92.7 % (94-98)
[2016-10-21] MEDS: NYSTATIN TOPICAL POWDER 15 GM TP SCH (17:10)
[2016-10-21] MEDS: AZITHROMYCIN 500 MG in DEXTROSE 5%-WATER 250 ML IV SCH (17:10)
[2016-10-21 17:18] LABS: URINE CREATININE 87.4 mg/dL (15-278); URINE PROTEIN 82.5 mg/dL (<12)
--- NOTE | 2016-10-21 18:03 | PDOC CONSULTATION ---
Consultation Consult Date: 10/21/16 Attending physician:: JEN MAE Consult reason:: resp failure History of Present Illness Admission Date/PCP: 10/20/16 20:20 History of Present Illness: all information from chart no family or friends at bedside:GABINO ALEXANDER is a 71 year old female, to ED after cough,increasing dyspnea.Patient is O2 dependent w/COPD recently turned O2 from 2L_to 8L in EDvery lethargic and hypercapnic but appeared to respond to BIPAP went to floor but became progressively worse taken to ICU intubated. Past Medical History Cardiac Medical History: Reports: Congestive Heart Failure, Hypertension, Peripheral Vascular Disease Pulmonary Medical History: Reports: Chronic Obstructive Pulmonary Disease (COPD) Endocrine Medical History: Reports: Diabetes Mellitus Type 2, Hypothyroidism Past Surgical History Past Surgical History: Reports: Cholecystectomy, Orthopedic Surgery - L Wrist Social History Information Source: [facility] Records Smoking Status: Current Every Day Smoker Cigarettes Packs Per Day: 2 Number of Years Smokin Passive smoke exposure as: Both Frequency of Alcohol Use: None Hx Recreational Drug Use: No Drugs: None Hx Prescription Drug Abuse: No - Advance Directive Resuscitation Status: Full Code Family History Family History: DM, Hypertension Parental Family History Reviewed: No Children Family History Reviewed: No Sibling(s) Family History Reviewed.: No Medication/Allergy Home Medications: Albuterol Sulfate [Albuterol Sulfate 2.5mg/3 mL] 1 vial IH [id number] PRN 10/20/16 Albuterol Sulfate [Proair Hfa] 2 puff IN Q4HP PRN 10/20/16 Aspirin [Aspirin 325 mg Tablet] 325 mg PO DAILY 10/20/16 Furosemide [Lasix 40 mg Tablet] 40 mg PO DAILY 10/20/16 Guaifenesin/D-Methorphan Hb/PE [Robitussin Cough-Cold Cf Liq] 5 ml PO Q12HP PRN 10/20/16 Levothyroxine Sodium [Synthroid] 50 mcg PO DAILY 10/20/16 Levothyroxine Sodium [Synthroid] 200 mcg PO DAILY 10/20/16 Nystatin [Mycostatin Topical Powder 15 gm] 1 applic TP Q12 10/20/16 Potassium Chloride [Klor-Con] 20 meq PO DAILY 10/20/16 Allergies/Adverse Reactions: albuterol sulfate [From [employer]] Allergy (Verified 10/06/14 22:21) allopurinol [From Zyloprim] Allergy (Verified 10/06/14 22:21) alprazolam [From Xanax] Allergy (Verified 10/06/14 22:21) amitriptyline HCl [From Elavil] Allergy (Verified 10/06/14 22:21) atorvastatin calcium [From Lipitor] Allergy (Verified 10/06/14 22:21) belladonna alkaloids [From Bellergal-S] Allergy (Verified 10/06/14 22:21) bupivacaine [Bupivacaine] Allergy (Verified 10/06/14 22:21) cefuroxime axetil [From Ceftin] Allergy (Verified 10/06/14 22:21) celecoxib [From Celebrex] Allergy (Verified 10/06/14 22:21) cimetidine [From Tagamet] Allergy (Verified 10/06/14 22:21) ciprofloxacin [Ciprofloxacin] Allergy (Verified 10/06/14 22:21) codeine [Codeine] Allergy (Verified 10/06/14 22:21) doxepin HCl [From Sinequan] Allergy (Verified 10/06/14 22:21) ergotamine tartrate [From Bellergal-S] Allergy (Verified 10/06/14 22:21) fluoxetine HCl [From Prozac] Allergy (Verified 10/06/14 22:21) hydroxyzine HCl [From Atarax] Allergy (Verified 10/06/14 22:21) indigotindisulfonic acid [From Indigo Blair] Allergy (Verified 10/11/15 07:27) ipratropium bromide [From DuoNeb] Allergy (Verified 10/06/14 22:21) lemon oil Allergy (Verified 10/06/14 22:21) malathion Allergy (Verified 10/06/14 22:21) mefenamic acid Allergy (Verified 10/06/14 22:21) metformin HCl [From Glucophage] Allergy (Verified 10/06/14 22:21) metoclopramide HCl [From Reglan] Allergy (Verified 10/06/14 22:21) Milk Containing Products Allergy (Verified 10/06/14 22:21) morphine Allergy (Verified 10/06/14 22:21) naproxen sodium [From Anaprox] Allergy (Verified 10/06/14 22:21) nefazodone HCl [From Serzone] Allergy (Verified 10/06/14 22:21) peanut Allergy (Verified 10/06/14 22:21) phenobarbital [From Bellergal-S] Allergy (Verified 10/06/14 22:21) phenylephrine tannate [From [place] [facility]] Allergy (Verified 10/06/14 22:21) pyrilamine tannate [From [place] CT] Allergy (Verified 10/06/14 22:21) sertraline HCl [From Zoloft] Allergy (Verified 10/06/14 22:21) sucralfate [From Carafate] Allergy (Verified 10/06/14 22:21) tolterodine tartrate [From Detrol] Allergy (Verified 10/06/14 22:21) tramadol Allergy (Verified 10/06/14 22:21) trazodone HCl [From Desyrel] Allergy (Verified 10/06/14 22:21) my-e Allergy (Uncoded 10/06/14 22:21) renuzil Allergy (Uncoded 10/06/14 22:21) surgical steel Allergy (Uncoded 10/06/14 22:21) Review of Systems ROS unobtainable: Due to endotracheal tube Physical Exam Vital Signs: Temp Pulse Resp BP Pulse Ox 98.2 F 48 L 14 89/37 L 98 10/21/16 10:48 10/21/16 08:00 10/21/16 10:48 10/21/16 10:48 10/21/16 12:00 Intake & Output 10/20/16 10/21/16 10/22/16 06:59 06:59 06:59 Intake Total 855 Output Total 550 330 Balance 305 -330 Weight 81.1 kg General appearance: PRESENT: no acute distress, disheveled, well-developed Head exam: PRESENT: atraumatic, normocephalic Eye exam: PRESENT: conjunctiva pale Mouth exam: PRESENT: dry mucosa, neck supple, tongue midline, other - ET tube 7.5 D#1 Neck exam: ABSENT: carotid bruit, JVD, lymphadenopathy, thyromegaly Respiratory exam: PRESENT: decreased breath sounds, prolonged expiratory phas, rales, rhonchi, symmetrical, unlabored, other - ET tube Cardiovascular exam: PRESENT: RRR, +S1, +S2 Pulses: PRESENT: normal radial pulses GI/Abdominal exam: PRESENT: normal bowel sounds, soft. ABSENT: distended, guarding, mass, organolmegaly, rebound, tenderness Rectal exam: PRESENT: deferred Gentrourinary exam: PRESENT: indwelling catheter Musculoskeletal exam: PRESENT: normal inspection Skin exam: PRESENT: dry, warm Results Laboratory Results: 10/21/16 04:29 10/21/16 05:20 10/20/16 10/20/16 10/20/16 21:59 21:59 21:59 WBC 11.1 H RBC 4.71 Hgb 14.1 Hct 45.1 MCV 96 MCH 29.9 MCHC 31.1 L RDW 16.3 H Plt Count 94 L Seg Neutrophils % Not Reportable Lymphocytes % Not Reportable Monocytes % Not Reportable Eosinophils % Not Reportable Basophils % Not Reportable Absolute Neutrophils Not Reportable Absolute Lymphocytes Not Reportable Absolute Monocytes Not Reportable Absolute Eosinophils Not Reportable Absolute Basophils Not Reportable Carbonic Acid HCO3/H2CO3 Ratio ABG pH ABG pCO2 ABG pO2 ABG HCO3 ABG O2 Saturation ABG Base Excess FiO2 Sodium 140.9 Potassium 6.1 H* Chloride 105 Carbon Dioxide 28 Anion Gap 8 BUN 31 H Creatinine 0.84 Est GFR ( Amer) > 60 Est GFR (Non-Af Amer) > 60 Glucose 203 H Calcium 9.2 Phosphorus 2.7 Magnesium 2.1 Total Bilirubin 0.7 AST 23 ALT 25 Alkaline Phosphatase 87 Ammonia 17.7 Total Protein 7.2 Albumin 3.7 Triglycerides Cholesterol LDL Cholesterol Direct VLDL Cholesterol HDL Cholesterol Amylase 54 Lipase 46.7 TSH Free T4 10/20/16 10/20/16 10/21/16 21:59 23:30 04:29 WBC 7.5 RBC 4.36 Hgb 13.0 Hct 41.5 MCV 95 MCH 29.7 MCHC 31.2 L RDW 16.3 H Plt Count 95 L Seg Neutrophils % 88.0 H Lymphocytes % 9.0 L Monocytes % 2.4 L Eosinophils % 0.4 Basophils % 0.2 Absolute Neutrophils 6.6 Absolute Lymphocytes 0.7 Absolute Monocytes 0.2 Absolute Eosinophils 0.0 Absolute Basophils 0.0 Carbonic Acid 1.47 H HCO3/H2CO3 Ratio 18:1 ABG pH 7.36 ABG pCO2 48.9 H ABG pO2 63.1 L ABG HCO3 27.3 H ABG O2 Saturation 91.2 L ABG Base Excess 1.2 FiO2 40% Sodium Potassium Chloride Carbon Dioxide Anion Gap BUN Creatinine Est GFR ( Amer) Est GFR (Non-Af Amer) Glucose Calcium Phosphorus Magnesium Total Bilirubin AST ALT Alkaline Phosphatase Ammonia Total Protein Albumin Triglycerides Cholesterol LDL Cholesterol Direct VLDL Cholesterol HDL Cholesterol Amylase Lipase TSH 2.58 Free T4 0.79 10/21/16 10/21/16 10/21/16 04:29 05:20 05:20 WBC RBC Hgb Hct MCV MCH MCHC RDW Plt Count Seg Neutrophils % Lymphocytes % Monocytes % Eosinophils % Basophils % Absolute Neutrophils Absolute Lymphocytes Absolute Monocytes Absolute Eosinophils Absolute Basophils Carbonic Acid 1.29 HCO3/H2CO3 Ratio 22:1 ABG pH 7.46 H ABG pCO2 42.7 ABG pO2 57.1 L ABG HCO3 29.3 H ABG O2 Saturation 91.0 L ABG Base Excess 4.9 FiO2 40% Sodium Cancelled 138.9 Potassium Cancelled 4.7 D Chloride Cancelled 107 Carbon Dioxide Cancelled 27 Anion Gap Cancelled 5 BUN Cancelled 22 H Creatinine Cancelled 0.64 Est GFR ( Amer) Cancelled > 60 Est GFR (Non-Af Amer) Cancelled > 60 Glucose Cancelled 178 H Calcium Cancelled 8.6 Phosphorus Magnesium Total Bilirubin Cancelled 0.5 AST Cancelled 13 L ALT Cancelled 20 Alkaline Phosphatase Cancelled 67 Ammonia Total Protein Cancelled 5.4 L Albumin Cancelled 2.7 L Triglycerides Cancelled 101 Cholesterol Cancelled 104.16 LDL Cholesterol Direct Cancelled 65 VLDL Cholesterol Cancelled 20.0 HDL Cholesterol Cancelled 32 L Amylase Lipase TSH Free T4 10/21/16 11:21 WBC RBC Hgb Hct MCV MCH MCHC RDW Plt Count Seg Neutrophils % Lymphocytes % Monocytes % Eosinophils % Basophils % Absolute Neutrophils Absolute Lymphocytes Absolute Monocytes Absolute Eosinophils Absolute Basophils Carbonic Acid 1.47 H HCO3/H2CO3 Ratio 20:1 ABG pH 7.40 ABG pCO2 48.8 H ABG pO2 58.5 L ABG HCO3 29.6 H ABG O2 Saturation 90.1 L ABG Base Excess 3.9 FiO2 35% Sodium Potassium Chloride Carbon Dioxide Anion Gap BUN Creatinine Est GFR ( Amer) Est GFR (Non-Af Amer) Glucose Calcium Phosphorus Magnesium Total Bilirubin AST ALT Alkaline Phosphatase Ammonia Total Protein Albumin Triglycerides Cholesterol LDL Cholesterol Direct VLDL Cholesterol HDL Cholesterol Amylase Lipase TSH Free T4 10/20/16 10/20/16 10/21/16 21:59 21:59 04:29 Creatine Kinase 22 L Cancelled CK-MB (CK-2) 1.90 Troponin I < 0.012 10/21/16 10/21/16 10/21/16 04:29 05:20 11:25 Creatine Kinase < 20 L 28 L CK-MB (CK-2) 1.78 Troponin I < 0.012 10/21/16 11:25 Creatine Kinase CK-MB (CK-2) 1.69 Troponin I 0.020 Impressions: Chest X-Ray 10/21/16 00:00 IMPRESSION: Slightly improved aeration as above. This suggests improving edema. Appropriate lines and tubes. Assessment & Plan - Diagnosis (1) Acute exacerbation of chronic obstructive pulmonary disease (COPD) Is this a current diagnosis for this admission?: Yes Plan: intense bronchodialator tx (2) Acute hypercapnic respiratory failure Is this a current diagnosis for this admission?: Yes Plan: maintain ventilation for acceptable pace (3) Pneumonia Qualifiers: Pneumonia type: due to unspecified organism Laterality: left Lung location: lower lobe of lung Qualified Code(s): J18.1 - Lobar pneumonia, unspecified organism Is this a current diagnosis for this admission?: Yes Plan: cultures pending - Time Critical Time spent with patient: 35 or more minutes - 50 min
[2016-10-21] MEDS: FUROSEMIDE INJ/PF 20 MG/2 ML SDV IV SCH (21:07)
[2016-10-22] MEDS: PROPOFOL 100 ML IV PRN ×7 (00:30→23:38)
[2016-10-22] MEDS: IPRATROPIUM/ALBUTEROL 0.5-2.5 MG/3 ML AMPUL NEB SCH ×4 (02:20→19:44)
[2016-10-22 05:13] LABS: ARTERIAL BLOOD BASE EXCESS -1.7 mmol/L; ARTERIAL BLOOD O2 SATURATION 94.6 % (94-98)
[2016-10-22] MEDS: METHYLPREDNISOLONE INJ 125 MG/2 ML SDV IV SCH ×5 (05:14→22:06)
[2016-10-22 06:12] LABS: ABSOLUTE LYMPHOCYTES (AUTO) 0.5 10^3/uL (0.5-4.7); ABSOLUTE MONOCYTES (AUTO) 0.4 10^3/uL (0.1-1.4); ABSOLUTE NEUT (AUTO) 9.5 10^3/uL (1.7-8.2); BASOPHILS % (AUTO) 0.2 % (0-2); HEMOGLOBIN 12.1 g/dL (12.0-15.5); HGB HCT DIFFERENCE -0.7; LYMPHOCYTES % (AUTO) 5.1 % (13-45); MEAN CORPUSCULAR HEMOGLOBIN 30.5 pg (27.0-33.4); MEAN CORPUSCULAR HGB CONC 32.7 g/dL (32.0-36.0); MEAN CORPUSCULAR VOLUME 93 fl (80-97); MONOCYTES % (AUTO) 3.5 % (3-13); RED BLOOD COUNT 3.97 10^6/uL (3.72-5.28); RED CELL DISTRIBUTION WIDTH 16.2 % (11.5-14.0); SEGMENTED NEUTROPHILS % (AUTO) 91.2 % (42-78); WHITE BLOOD COUNT 10.4 10^3/uL (4.0-10.5)
[2016-10-22 06:32] LABS: ALANINE AMINOTRANSFERASE 18 U/L (9-52); ALBUMIN 2.9 g/dL (3.5-5.0); ALKALINE PHOSPHATASE 60 U/L (38-126); ANION GAP 10 (5-19); ASPARTATE AMINO TRANSFERASE 15 U/L (14-36); BILIRUBIN,DIRECT 0.4 mg/dL (0.0-0.4); BILIRUBIN,TOTAL 0.4 mg/dL (0.2-1.3); BLOOD UREA NITROGEN 27 mg/dL (7-20); CALCIUM 8.8 mg/dL (8.4-10.2); CARBON DIOXIDE 24 mmol/L (22-30); CHLORIDE 106 mmol/L (98-107); CREATININE RESULT 0.92 mg/dL (0.52-1.25); GLUCOSE 164 mg/dL (75-110); MAGNESIUM 1.8 mg/dL (1.6-2.3); POTASSIUM 4.6 mmol/L (3.6-5.0); SODIUM 140.1 mmol/L (137-145); TOTAL PROTEIN 5.8 g/dL (6.3-8.2); TRIGLYCERIDES 146 mg/dL (<150)
--- NOTE | 2016-10-22 06:46 | RADIOLOGY REPORT (SQ) ---
EXAM DESCRIPTION: CHEST SINGLE VIEW COMPLETED DATE/TIME: 10/22/2016 6:35 am REASON FOR STUDY: mechanical ventilation COMPARISON: Chest x-ray 10/21/2016. EXAM PARAMETERS: NUMBER OF VIEWS: One view TECHNIQUE: Single frontal radiograph of the chest. RADIATION DOSE: N/A LIMITATIONS: None. FINDINGS: TEMPORARY SUPPORT DEVICES:ETT in expected location. NG tube courses below the left lilia-d iaphragm in to the stomach. LUNGS AND PLEURA: Slight interval decrease in the bilateral airspace opacities. No pleural effusion or pneumothorax. Hyperlucent lungs, suggestive of emphysema. MEDIASTINUM AND HILAR STRUCTURES: Stable. HEART AND VASCULAR STRUCTURES: The heart is mildly enlarged. There is interval decrease in the vascu lar congestion. BONES: Degenerative changes in the spine. IMPRESSION: Interval improvement in the aeration of the lungs with slight decrease in the bilateral airspace opacities and decrease in the vascular congestion. Emphysema. TECHNICAL DOCUMENTATION: JOB ID: [id number] 2010 [employer]- All Rights Reserved
[2016-10-22] MEDS: LEVOTHYROXINE SODIUM 0.05 MG TABLET PO SCH (07:26)
[2016-10-22] MEDS: LEVOTHYROXINE SODIUM 0.1 MG TABLET PO SCH (07:26)
[2016-10-22] MEDS: ENOXAPARIN SODIUM INJ 30 MG/0.3 ML DISP.SYRIN SUBCUT SCH (07:26)
[2016-10-22] MEDS: FUROSEMIDE INJ/PF 20 MG/2 ML SDV IV SCH ×2 (09:21→22:06)
[2016-10-22] MEDS: NYSTATIN TOPICAL POWDER 15 GM TP SCH ×2 (09:21→17:25)
--- NOTE | 2016-10-22 15:58 | PDOC PROGRESS REPORT ---
Subjective Progress Note for:: 10/22/16 Subjective:: Patient remains intubated sedated on mechanical ventilation Physical Exam Vital Signs: Temp Pulse Resp BP Pulse Ox 97.7 F 67 18 104/50 L 93 10/22/16 14:15 10/22/16 14:00 10/22/16 14:15 10/22/16 14:00 10/22/16 14:15 Intake & Output 10/21/16 10/22/16 10/23/16 06:59 06:59 06:59 Intake Total 855 1940 50 Output Total 550 1575 1435 Balance 305 365 -1385 Weight 81.1 kg 81.8 kg General appearance: PRESENT: no acute distress Eye exam: PRESENT: PERRLA Respiratory exam: PRESENT: wheezes Cardiovascular exam: PRESENT: +S1, +S2 GI/Abdominal exam: PRESENT: soft Results Laboratory Results: 10/22/16 05:58 10/22/16 05:58 10/22/16 10/22/16 10/22/16 05:00 05:58 05:58 WBC 10.4 RBC 3.97 Hgb 12.1 Hct 37.0 MCV 93 MCH 30.5 MCHC 32.7 RDW 16.2 H Plt Count 111 L Seg Neutrophils % 91.2 H Lymphocytes % 5.1 L Monocytes % 3.5 Eosinophils % 0.0 Basophils % 0.2 Absolute Neutrophils 9.5 H Absolute Lymphocytes 0.5 Absolute Monocytes 0.4 Absolute Eosinophils 0.0 Absolute Basophils 0.0 Carbonic Acid 1.36 H HCO3/H2CO3 Ratio 17:1 ABG pH 7.35 ABG pCO2 45.2 H ABG pO2 76.4 L ABG HCO3 24.2 ABG O2 Saturation 94.6 ABG Base Excess -1.7 FiO2 35% Sodium 140.1 Potassium 4.6 Chloride 106 Carbon Dioxide 24 Anion Gap 10 BUN 27 H Creatinine 0.92 Est GFR ( Amer) > 60 Est GFR (Non-Af Amer) > 60 Glucose 164 H Calcium 8.8 Magnesium 1.8 Total Bilirubin 0.4 AST 15 ALT 18 Alkaline Phosphatase 60 Total Protein 5.8 L Albumin 2.9 L Triglycerides 146 10/20/16 10/20/16 10/21/16 21:59 21:59 04:29 Creatine Kinase 22 L Cancelled CK-MB (CK-2) 1.90 Troponin I < 0.012 10/21/16 10/21/16 10/21/16 04:29 05:20 11:25 Creatine Kinase < 20 L 28 L CK-MB (CK-2) 1.78 Troponin I < 0.012 10/21/16 11:25 Creatine Kinase CK-MB (CK-2) 1.69 Troponin I 0.020 Impressions: Chest X-Ray 10/22/16 06:00 IMPRESSION: Interval improvement in the aeration of the lungs with slight decrease in the bilateral airspace opacities and decrease in the vascular congestion. Emphysema. Assessment & Plan - Diagnosis (1) Acute hypercapnic respiratory failure Is this a current diagnosis for this admission?: Yes (2) Acute exacerbation of chronic obstructive pulmonary disease (COPD) Is this a current diagnosis for this admission?: Yes (3) Hyperkalemia Is this a current diagnosis for this admission?: Yes - Plan Summary Plan Summary: Patient remains on mechanical ventilation will continue IV Solu-Medrol IV antibiotic
[2016-10-22] MEDS: AZITHROMYCIN 500 MG in DEXTROSE 5%-WATER 250 ML IV SCH (17:25)
--- NOTE | 2016-10-22 19:43 | PDOC PROGRESS REPORT ---
Subjective Progress Note for:: 10/22/16 Subjective:: intubated sedated Physical Exam Vital Signs: Temp Pulse Resp BP Pulse Ox 97.3 F 73 22 H 147/64 H 98 10/22/16 11:30 10/22/16 10:00 10/22/16 11:30 10/22/16 10:49 10/22/16 11:30 Intake & Output 10/21/16 10/22/16 10/23/16 06:59 06:59 06:59 Intake Total 855 1940 50 Output Total 550 1575 510 Balance 305 365 -460 Weight 81.1 kg 81.8 kg General appearance: PRESENT: no acute distress, disheveled, obese, well- developed Head exam: PRESENT: atraumatic, normocephalic Eye exam: PRESENT: conjunctiva pale Mouth exam: PRESENT: dry mucosa, neck supple, tongue midline, other - ET tube Neck exam: ABSENT: carotid bruit, JVD, lymphadenopathy, thyromegaly Respiratory exam: PRESENT: crackles, decreased breath sounds, prolonged expiratory phas, rhonchi, symmetrical, unlabored. ABSENT: retraction, stridor, tachypnea Cardiovascular exam: PRESENT: RRR, +S1, +S2 Pulses: PRESENT: normal radial pulses GI/Abdominal exam: PRESENT: normal bowel sounds, soft. ABSENT: distended, guarding, mass, organolmegaly, rebound, tenderness Rectal exam: PRESENT: deferred Gentrourinary exam: PRESENT: indwelling catheter Musculoskeletal exam: PRESENT: normal inspection Skin exam: PRESENT: dry, warm Results Laboratory Results: 10/22/16 05:58 10/22/16 05:58 10/21/16 10/22/16 10/22/16 15:12 05:00 05:58 WBC RBC Hgb Hct MCV MCH MCHC RDW Plt Count Seg Neutrophils % Lymphocytes % Monocytes % Eosinophils % Basophils % Absolute Neutrophils Absolute Lymphocytes Absolute Monocytes Absolute Eosinophils Absolute Basophils Carbonic Acid 1.29 1.36 H HCO3/H2CO3 Ratio 21:1 17:1 ABG pH 7.44 7.35 ABG pCO2 42.7 45.2 H ABG pO2 62.8 L 76.4 L ABG HCO3 28.1 H 24.2 ABG O2 Saturation 92.7 L 94.6 ABG Base Excess 3.5 -1.7 FiO2 35% 35% Sodium 140.1 Potassium 4.6 Chloride 106 Carbon Dioxide 24 Anion Gap 10 BUN 27 H Creatinine 0.92 Est GFR ( Amer) > 60 Est GFR (Non-Af Amer) > 60 Glucose 164 H Calcium 8.8 Magnesium 1.8 Total Bilirubin 0.4 AST 15 ALT 18 Alkaline Phosphatase 60 Total Protein 5.8 L Albumin 2.9 L Triglycerides 146 10/22/16 05:58 WBC 10.4 RBC 3.97 Hgb 12.1 Hct 37.0 MCV 93 MCH 30.5 MCHC 32.7 RDW 16.2 H Plt Count 111 L Seg Neutrophils % 91.2 H Lymphocytes % 5.1 L Monocytes % 3.5 Eosinophils % 0.0 Basophils % 0.2 Absolute Neutrophils 9.5 H Absolute Lymphocytes 0.5 Absolute Monocytes 0.4 Absolute Eosinophils 0.0 Absolute Basophils 0.0 Carbonic Acid HCO3/H2CO3 Ratio ABG pH ABG pCO2 ABG pO2 ABG HCO3 ABG O2 Saturation ABG Base Excess FiO2 Sodium Potassium Chloride Carbon Dioxide Anion Gap BUN Creatinine Est GFR ( Amer) Est GFR (Non-Af Amer) Glucose Calcium Magnesium Total Bilirubin AST ALT Alkaline Phosphatase Total Protein Albumin Triglycerides 10/20/16 10/20/16 10/21/16 21:59 21:59 04:29 Creatine Kinase 22 L Cancelled CK-MB (CK-2) 1.90 Troponin I < 0.012 10/21/16 10/21/16 10/21/16 04:29 05:20 11:25 Creatine Kinase < 20 L 28 L CK-MB (CK-2) 1.78 Troponin I < 0.012 10/21/16 11:25 Creatine Kinase CK-MB (CK-2) 1.69 Troponin I 0.020 Impressions: Chest X-Ray 10/22/16 06:00 IMPRESSION: Interval improvement in the aeration of the lungs with slight decrease in the bilateral airspace opacities and decrease in the vascular congestion. Emphysema. Assessment & Plan - Diagnosis (1) Acute exacerbation of chronic obstructive pulmonary disease (COPD) Is this a current diagnosis for this admission?: Yes (2) Acute hypercapnic respiratory failure Is this a current diagnosis for this admission?: Yes (3) Pneumonia Qualifiers: Pneumonia type: due to unspecified organism Laterality: left Lung location: lower lobe of lung Qualified Code(s): J18.1 - Lobar pneumonia, unspecified organism Is this a current diagnosis for this admission?: Yes Plan: GPC sputum - Time Critical Time spent with patient: 25-34 minutes
[2016-10-23] MEDS: IPRATROPIUM/ALBUTEROL 0.5-2.5 MG/3 ML AMPUL NEB SCH ×4 (02:43→20:14)
[2016-10-23] MEDS: PROPOFOL 100 ML IV PRN ×5 (03:40→19:49)
[2016-10-23] MEDS: METHYLPREDNISOLONE INJ 125 MG/2 ML SDV IV SCH ×3 (05:46→22:19)
[2016-10-23 05:51] LABS: ARTERIAL BLOOD BASE EXCESS 7.2 mmol/L; ARTERIAL BLOOD O2 SATURATION 91.3 % (94-98)
--- NOTE | 2016-10-23 07:46 | RADIOLOGY REPORT (SQ) ---
EXAM DESCRIPTION: CHEST SINGLE VIEW COMPLETED DATE/TIME: 10/23/2016 6:10 am REASON FOR STUDY: mechanical ventilation COMPARISON: 10/22/2016. EXAM PARAMETERS: NUMBER OF VIEWS: One view. TECHNIQUE: Single frontal radiographic view of the chest acquired. RADIATION DOSE: NA LIMITATIONS: None. FINDINGS: LUNGS AND PLEURA: Moderate mixed interstitial and airspace opacities with left lower predo minance appear MEDIASTINUM AND HILAR STRUCTURES: No masses. Contour normal. HEART AND VASCULAR STRUCTURES: Mildly enlarged cardiac silhouette. BONES: No acute findings. HARDWARE: Adequate appearing endotracheal tube and likely adequate NG tube obscured distally. OTHER: No other significant finding. IMPRESSION: No significant interval change. TECHNICAL DOCUMENTATION: JOB ID: [id number]
[2016-10-23] MEDS: LEVOTHYROXINE SODIUM 0.1 MG TABLET PO SCH (07:54)
[2016-10-23] MEDS: LEVOTHYROXINE SODIUM 0.05 MG TABLET PO SCH (07:55)
[2016-10-23 08:43] LABS: HEMATOCRIT 40.2 % (36.0-47.0); HEMOGLOBIN 12.8 g/dL (12.0-15.5); HGB HCT DIFFERENCE -1.8; MEAN CORPUSCULAR HEMOGLOBIN 29.4 pg (27.0-33.4); MEAN CORPUSCULAR HGB CONC 31.8 g/dL (32.0-36.0); MEAN CORPUSCULAR VOLUME 93 fl (80-97); RED BLOOD COUNT 4.34 10^6/uL (3.72-5.28); RED CELL DISTRIBUTION WIDTH 16.7 % (11.5-14.0); WHITE BLOOD COUNT 8.3 10^3/uL (4.0-10.5)
[2016-10-23 09:10] LABS: ANION GAP 10 (5-19); BLOOD UREA NITROGEN 26 mg/dL (7-20); CALCIUM 8.7 mg/dL (8.4-10.2); CARBON DIOXIDE 31 mmol/L (22-30); CHLORIDE 102 mmol/L (98-107); CREATININE RESULT 0.79 mg/dL (0.52-1.25); GLUCOSE 177 mg/dL (75-110); MAGNESIUM 1.7 mg/dL (1.6-2.3); PHOSPHORUS 4.5 mg/dL (2.5-4.5); POTASSIUM 4.5 mmol/L (3.6-5.0); SODIUM 142.7 mmol/L (137-145)
[2016-10-23 09:48] LABS: BASOPHILS % (MANUAL) 0 % (0-2); EOSINOPHILS % (MANUAL) 0 % (0-6); LYMPHOCYTES % (MANUAL) 1 % (13-45); TOTAL CELLS COUNTED 100
[2016-10-23 09:49] LABS: ANISOCYTOSIS 1+; OVALOCYTES 1+; POIKILOCYTOSIS 1+
[2016-10-23] MEDS: ENOXAPARIN SODIUM INJ 30 MG/0.3 ML DISP.SYRIN SUBCUT SCH (10:42)
[2016-10-23] MEDS: FUROSEMIDE INJ/PF 20 MG/2 ML SDV IV SCH ×2 (10:44→22:19)
[2016-10-23] MEDS: NYSTATIN TOPICAL POWDER 15 GM TP SCH ×2 (10:44→17:08)
--- NOTE | 2016-10-23 13:09 | PDOC PROGRESS REPORT ---
Subjective Progress Note for:: 10/23/16 Subjective:: intubated Mildly sedated Physical Exam Vital Signs: Temp Pulse Resp BP Pulse Ox 98.1 F 70 24 H 116/70 95 10/23/16 06:00 10/23/16 08:24 10/23/16 08:24 10/23/16 05:48 10/23/16 08:24 Intake & Output 10/22/16 10/23/16 10/24/16 06:59 06:59 06:59 Intake Total 1940 1598 60 Output Total 1573 4135 125 Balance 344 -9497 -65 Weight 81.8 kg 77.9 kg General appearance: PRESENT: no acute distress, disheveled, obese, well- developed Head exam: PRESENT: atraumatic, normocephalic Eye exam: PRESENT: conjunctiva pale, EOMI Mouth exam: PRESENT: dry mucosa, neck supple, tongue midline, other - ET tube in place Neck exam: ABSENT: carotid bruit, JVD, lymphadenopathy, thyromegaly Respiratory exam: PRESENT: decreased breath sounds, prolonged expiratory phas, rales, rhonchi, symmetrical, tachypnea, unlabored. ABSENT: clear to auscultation oh, retraction, stridor Cardiovascular exam: PRESENT: RRR, +S1, +S2 Pulses: PRESENT: normal radial pulses GI/Abdominal exam: PRESENT: normal bowel sounds, soft. ABSENT: distended, guarding, mass, organolmegaly, rebound, tenderness Rectal exam: PRESENT: deferred Extremities exam: PRESENT: +1 edema Neurological exam: PRESENT: awake Skin exam: PRESENT: dry, warm Results Laboratory Results: 10/23/16 08:06 10/23/16 10/23/16 10/23/16 05:45 08:06 08:06 Seg Neutrophils % Not Reportable Lymphocytes % Not Reportable Monocytes % Not Reportable Eosinophils % Not Reportable Basophils % Not Reportable Absolute Neutrophils Not Reportable Absolute Lymphocytes Not Reportable Absolute Monocytes Not Reportable Absolute Eosinophils Not Reportable Absolute Basophils Not Reportable Carbonic Acid 1.50 H HCO3/H2CO3 Ratio 21:1 ABG pH 7.44 ABG pCO2 49.9 H ABG pO2 59.7 L ABG HCO3 32.8 H ABG O2 Saturation 91.3 L ABG Base Excess 7.2 FiO2 35% Sodium 142.7 Potassium 4.5 Chloride 102 Carbon Dioxide 31 H Anion Gap 10 BUN 26 H Creatinine 0.79 Est GFR ( Amer) > 60 Est GFR (Non-Af Amer) > 60 Glucose 177 H Calcium 8.7 Phosphorus 4.5 Magnesium 1.7 10/20/16 10/20/16 10/21/16 21:59 21:59 04:29 Creatine Kinase 22 L Cancelled CK-MB (CK-2) 1.90 Troponin I < 0.012 10/21/16 10/21/16 10/21/16 04:29 05:20 11:25 Creatine Kinase < 20 L 28 L CK-MB (CK-2) 1.78 Troponin I < 0.012 10/21/16 11:25 Creatine Kinase CK-MB (CK-2) 1.69 Troponin I 0.020 Impressions: Chest X-Ray 10/23/16 06:00 IMPRESSION: No significant interval change. Assessment & Plan - Diagnosis (1) Acute exacerbation of chronic obstructive pulmonary disease (COPD) Is this a current diagnosis for this admission?: Yes Plan: Improving, diffuse bilateral wheezes persist however overall air movement is better (2) Acute hypercapnic respiratory failure Is this a current diagnosis for this admission?: Yes Plan: Patient's baseline seems to be a PaCO2 in the 60s and a PA O2 in 60s on low- dose oxygen (3) Pneumonia Qualifiers: Pneumonia type: due to unspecified organism Laterality: left Lung location: lower lobe of lung Qualified Code(s): J18.1 - Lobar pneumonia, unspecified organism Is this a current diagnosis for this admission?: Yes - Time Critical Time spent with patient: 25-34 minutes
[2016-10-23] MEDS: FAMOTIDINE INJ/PF 20 MG/2 ML SDV IV SCH (16:58)
[2016-10-23] MEDS: AZITHROMYCIN 500 MG in DEXTROSE 5%-WATER 250 ML IV SCH (17:00)
--- NOTE | 2016-10-23 20:34 | PDOC PROGRESS REPORT ---
Subjective Progress Note for:: 10/23/16 Subjective:: Patient remains sedated and intubated on mechanical ventilation Physical Exam Vital Signs: Temp Pulse Resp BP Pulse Ox 98.1 F 62 18 115/54 L 93 10/23/16 18:15 10/23/16 20:15 10/23/16 20:15 10/23/16 17:48 10/23/16 20:15 Intake & Output 10/22/16 10/23/16 10/24/16 06:59 06:59 06:59 Intake Total 1940 1590 325 Output Total 1504 8095 7444 Balance 937 -5889 -1285 Weight 81.8 kg 77.9 kg Eye exam: PRESENT: PERRLA Respiratory exam: PRESENT: rhonchi Cardiovascular exam: PRESENT: +S1, +S2 GI/Abdominal exam: PRESENT: soft Results Laboratory Results: 10/23/16 08:06 10/23/16 08:06 10/23/16 10/23/16 10/23/16 05:45 08:06 08:06 WBC 8.3 RBC 4.34 Hgb 12.8 Hct 40.2 MCV 93 MCH 29.4 MCHC 31.8 L RDW 16.7 H Plt Count 121 L Seg Neutrophils % Not Reportable Lymphocytes % Not Reportable Monocytes % Not Reportable Eosinophils % Not Reportable Basophils % Not Reportable Absolute Neutrophils Not Reportable Absolute Lymphocytes Not Reportable Absolute Monocytes Not Reportable Absolute Eosinophils Not Reportable Absolute Basophils Not Reportable Carbonic Acid 1.50 H HCO3/H2CO3 Ratio 21:1 ABG pH 7.44 ABG pCO2 49.9 H ABG pO2 59.7 L ABG HCO3 32.8 H ABG O2 Saturation 91.3 L ABG Base Excess 7.2 FiO2 35% Sodium 142.7 Potassium 4.5 Chloride 102 Carbon Dioxide 31 H Anion Gap 10 BUN 26 H Creatinine 0.79 Est GFR ( Amer) > 60 Est GFR (Non-Af Amer) > 60 Glucose 177 H Calcium 8.7 Phosphorus 4.5 Magnesium 1.7 10/20/16 10/20/16 10/21/16 21:59 21:59 04:29 Creatine Kinase 22 L Cancelled CK-MB (CK-2) 1.90 Troponin I < 0.012 10/21/16 10/21/16 10/21/16 04:29 05:20 11:25 Creatine Kinase < 20 L 28 L CK-MB (CK-2) 1.78 Troponin I < 0.012 10/21/16 11:25 Creatine Kinase CK-MB (CK-2) 1.69 Troponin I 0.020 Impressions: Chest X-Ray 10/23/16 06:00 IMPRESSION: No significant interval change. Assessment & Plan - Diagnosis (1) Acute hypercapnic respiratory failure Is this a current diagnosis for this admission?: Yes (2) Acute exacerbation of chronic obstructive pulmonary disease (COPD) Is this a current diagnosis for this admission?: Yes (3) Hyperkalemia Is this a current diagnosis for this admission?: Yes - Plan Summary Plan Summary: Patient will continue respiratory support with mechanical ventilation, IV antibiotic and Solu-Medrol for acute COPD exacerbation we will start nutritional support after consultation with nutrition
[2016-10-23] MEDS: INSULIN LISPRO 100 UNIT/ML 3 ML VIAL SUBCUT PRN (22:20)
[2016-10-24] MEDS: PROPOFOL 100 ML IV PRN ×5 (00:28→21:55)
[2016-10-24] MEDS: IPRATROPIUM/ALBUTEROL 0.5-2.5 MG/3 ML AMPUL NEB SCH ×4 (02:06→19:54)
[2016-10-24] MEDS: METHYLPREDNISOLONE INJ 125 MG/2 ML SDV IV SCH ×3 (06:15→22:50)
[2016-10-24 06:22] LABS: ARTERIAL BLOOD BASE EXCESS 8.3 mmol/L; ARTERIAL BLOOD O2 SATURATION 95.9 % (94-98)
[2016-10-24 08:37] LABS: HEMATOCRIT 39.3 % (36.0-47.0); HEMOGLOBIN 12.8 g/dL (12.0-15.5); HGB HCT DIFFERENCE -0.9; MEAN CORPUSCULAR HGB CONC 32.6 g/dL (32.0-36.0); MEAN CORPUSCULAR VOLUME 92 fl (80-97); RED BLOOD COUNT 4.26 10^6/uL (3.72-5.28); RED CELL DISTRIBUTION WIDTH 16.4 % (11.5-14.0); WHITE BLOOD COUNT 9.7 10^3/uL (4.0-10.5)
[2016-10-24] MEDS: LEVOTHYROXINE SODIUM 0.1 MG TABLET PO SCH (08:41)
[2016-10-24] MEDS: LEVOTHYROXINE SODIUM 0.05 MG TABLET PO SCH (08:57)
[2016-10-24 09:14] LABS: BASOPHILS % (MANUAL) 0 % (0-2); EOSINOPHILS % (MANUAL) 0 % (0-6); LYMPHOCYTES % (MANUAL) 3 % (13-45); TOTAL CELLS COUNTED 100
[2016-10-24 09:18] LABS: ANISOCYTOSIS 1+; POLYCHROMASIA SLIGHT; TARGET CELLS SLIGHT
[2016-10-24 09:20] LABS: ALANINE AMINOTRANSFERASE 24 U/L (9-52); ALBUMIN 3.3 g/dL (3.5-5.0); ALKALINE PHOSPHATASE 63 U/L (38-126); ANION GAP 9 (5-19); ASPARTATE AMINO TRANSFERASE 20 U/L (14-36); BILIRUBIN,DIRECT 0.5 mg/dL (0.0-0.4); BILIRUBIN,TOTAL 0.6 mg/dL (0.2-1.3); BLOOD UREA NITROGEN 29 mg/dL (7-20); CALCIUM 8.9 mg/dL (8.4-10.2); CARBON DIOXIDE 31 mmol/L (22-30); CHLORIDE 103 mmol/L (98-107); CREATININE RESULT 0.83 mg/dL (0.52-1.25); GLUCOSE 188 mg/dL (75-110); POIKILOCYTOSIS SLIGHT; POTASSIUM 4.4 mmol/L (3.6-5.0); SODIUM 142.9 mmol/L (137-145); TOTAL PROTEIN 6.2 g/dL (6.3-8.2)
[2016-10-24 09:24] LABS: MAGNESIUM 1.9 mg/dL (1.6-2.3); PHOSPHORUS 4.4 mg/dL (2.5-4.5)
--- NOTE | 2016-10-24 09:35 | RADIOLOGY REPORT (SQ) ---
EXAM DESCRIPTION: CHEST SINGLE VIEW COMPLETED DATE/TIME: 10/24/2016 6:29 am REASON FOR STUDY: mechanical ventilation COMPARISON: CT chest 10/11/2015 Chest films 04/06/2010, 10/09/2015, 10/20/2016, 10/23/2016 EXAM PARAMETERS: NUMBER OF VIEWS: One view. TECHNIQUE: Single frontal radiographic view of the chest acquired. RADIATION DOSE: NA LIMITATIONS: None. FINDINGS: LUNGS AND PLEURA: There is right retrocardiac consolidation atelectasis versus pneumonia, similar compared to 10/23/2016, increased compared to 10/20/2016. Low lung volumes with mild increased interstitial markings in the mid and lower lungs, likely a combi nation of interstitial edema and underlying pulmonary fibrosis. Bandlike atelectasis in the lingula. Atelectasis in the right lateral costophrenic sulcus. No pleural effusions. No pneumothorax. MEDIASTINUM AND HILAR STRUCTURES: Prominent central pulmonary arteries likely chronic pulmonary hyper tension HEART AND VASCULAR STRUCTURES: Stable mild to moderate cardiomegaly BONES: No acute findings. HARDWARE: Endotracheal tube tip 4 cm above the bernice. Nasogastric tube tip and side port in the sto mach. OTHER: No other significant finding. IMPRESSION: Right lower lobe collapse and consolidation Stable increased interstitial markings in both lungs, likely a combination of interstitial edema and fibrosis Stable prominent central pulmonary arteries and mild cardiomegaly Tubes and lines in good positioning TECHNICAL DOCUMENTATION: JOB ID: [id number]
[2016-10-24] MEDS: ENOXAPARIN SODIUM INJ 30 MG/0.3 ML DISP.SYRIN SUBCUT SCH (12:02)
[2016-10-24] MEDS: FAMOTIDINE INJ/PF 20 MG/2 ML SDV IV SCH ×2 (12:03→18:35)
[2016-10-24] MEDS: FUROSEMIDE INJ/PF 20 MG/2 ML SDV IV SCH ×2 (12:03→22:51)
[2016-10-24] MEDS: NYSTATIN TOPICAL POWDER 15 GM TP SCH ×2 (12:03→18:34)
--- NOTE | 2016-10-24 17:40 | PDOC PROGRESS REPORT ---
Subjective Progress Note for:: 10/24/16 Subjective:: intubated Mildly sedated Physical Exam Vital Signs: Temp Pulse Resp BP Pulse Ox 98.1 F 61 25 H 111/55 L 91 L 10/24/16 07:52 10/24/16 08:33 10/24/16 08:33 10/24/16 07:52 10/24/16 08:33 Intake & Output 10/23/16 10/24/16 10/25/16 06:59 06:59 06:59 Intake Total 1598 1241 Output Total 4138 2690 25 Balance -2537 -1449 -25 Weight 77.9 kg 77.6 kg General appearance: PRESENT: no acute distress, disheveled, obese, well- developed Head exam: PRESENT: atraumatic, normocephalic Eye exam: PRESENT: conjunctiva pale, EOMI Mouth exam: PRESENT: dry mucosa, neck supple, tongue midline, other - ET tube in place Neck exam: ABSENT: carotid bruit, JVD, lymphadenopathy, thyromegaly Respiratory exam: PRESENT: decreased breath sounds, prolonged expiratory phas, rales, rhonchi, symmetrical, unlabored. ABSENT: retraction, stridor, tachypnea Cardiovascular exam: PRESENT: RRR, +S1, +S2 GI/Abdominal exam: PRESENT: normal bowel sounds, soft. ABSENT: distended, guarding, mass, organolmegaly, rebound, tenderness Rectal exam: PRESENT: deferred Gentrourinary exam: PRESENT: urethral discharge Extremities exam: PRESENT: +1 edema Neurological exam: PRESENT: awake Skin exam: PRESENT: dry, warm Results Laboratory Results: 10/23/16 10/23/16 10/24/16 08:06 08:06 06:05 WBC 8.3 RBC 4.34 Hgb 12.8 Hct 40.2 MCV 93 MCH 29.4 MCHC 31.8 L RDW 16.7 H Plt Count 121 L Seg Neutrophils % Not Reportable Lymphocytes % Not Reportable Monocytes % Not Reportable Eosinophils % Not Reportable Basophils % Not Reportable Absolute Neutrophils Not Reportable Absolute Lymphocytes Not Reportable Absolute Monocytes Not Reportable Absolute Eosinophils Not Reportable Absolute Basophils Not Reportable Carbonic Acid 1.51 H HCO3/H2CO3 Ratio 22:1 ABG pH 7.45 ABG pCO2 50.1 H ABG pO2 78.2 L ABG HCO3 33.7 H ABG O2 Saturation 95.9 ABG Base Excess 8.3 FiO2 45% Sodium 142.7 Potassium 4.5 Chloride 102 Carbon Dioxide 31 H Anion Gap 10 BUN 26 H Creatinine 0.79 Est GFR ( Amer) > 60 Est GFR (Non-Af Amer) > 60 Glucose 177 H Calcium 8.7 Phosphorus 4.5 Magnesium 1.7 10/20/16 10/20/16 10/21/16 21:59 21:59 04:29 Creatine Kinase 22 L Cancelled CK-MB (CK-2) 1.90 Troponin I < 0.012 10/21/16 10/21/16 10/21/16 04:29 05:20 11:25 Creatine Kinase < 20 L 28 L CK-MB (CK-2) 1.78 Troponin I < 0.012 10/21/16 11:25 Creatine Kinase CK-MB (CK-2) 1.69 Troponin I 0.020 Assessment & Plan - Diagnosis (1) Acute exacerbation of chronic obstructive pulmonary disease (COPD) Is this a current diagnosis for this admission?: Yes Plan: Increased air movement decreased wheezes rhonchi (2) Acute hypercapnic respiratory failure Is this a current diagnosis for this admission?: Yes Plan: Stable at this time (3) Pneumonia Qualifiers: Pneumonia type: due to unspecified organism Laterality: left Lung location: lower lobe of lung Qualified Code(s): J18.1 - Lobar pneumonia, unspecified organism Is this a current diagnosis for this admission?: Yes - Time Critical Time spent with patient: 35 or more minutes - 40 minutes
[2016-10-24] MEDS: AZITHROMYCIN 500 MG in DEXTROSE 5%-WATER 250 ML IV SCH (18:35)
--- NOTE | 2016-10-24 20:19 | PDOC PROGRESS REPORT ---
Subjective Progress Note for:: 10/24/16 Subjective:: Patient is intubated but she is awake, on less sedation Physical Exam Vital Signs: Temp Pulse Resp BP Pulse Ox 99.0 F 66 14 114/69 92 10/24/16 19:54 10/24/16 18:00 10/24/16 19:48 10/24/16 19:48 10/24/16 19:48 Intake & Output 10/23/16 10/24/16 10/25/16 06:59 06:59 06:59 Intake Total 1598 1241 Output Total 4139 6190 5361 Balance -6667 -6359 -6555 Weight 77.9 kg 77.6 kg General appearance: PRESENT: mild distress Eye exam: PRESENT: PERRLA Respiratory exam: PRESENT: wheezes Cardiovascular exam: PRESENT: +S1, +S2 GI/Abdominal exam: PRESENT: soft Neurological exam: PRESENT: awake Results Laboratory Results: 10/24/16 08:20 10/24/16 08:20 10/24/16 10/24/16 10/24/16 06:05 08:20 08:20 WBC 9.7 RBC 4.26 Hgb 12.8 Hct 39.3 MCV 92 MCH 30.0 MCHC 32.6 RDW 16.4 H Plt Count 126 L Seg Neutrophils % Not Reportable Lymphocytes % Not Reportable Monocytes % Not Reportable Eosinophils % Not Reportable Basophils % Not Reportable Absolute Neutrophils Not Reportable Absolute Lymphocytes Not Reportable Absolute Monocytes Not Reportable Absolute Eosinophils Not Reportable Absolute Basophils Not Reportable Carbonic Acid 1.51 H HCO3/H2CO3 Ratio 22:1 ABG pH 7.45 ABG pCO2 50.1 H ABG pO2 78.2 L ABG HCO3 33.7 H ABG O2 Saturation 95.9 ABG Base Excess 8.3 FiO2 45% Sodium Cancelled Potassium Cancelled Chloride Cancelled Carbon Dioxide Cancelled Anion Gap Cancelled BUN Cancelled Creatinine Cancelled Est GFR ( Amer) Cancelled Est GFR (Non-Af Amer) Cancelled Glucose Cancelled Calcium Cancelled Phosphorus 4.4 Magnesium 1.9 Total Bilirubin AST ALT Alkaline Phosphatase Total Protein Albumin 10/24/16 08:20 WBC RBC Hgb Hct MCV MCH MCHC RDW Plt Count Seg Neutrophils % Lymphocytes % Monocytes % Eosinophils % Basophils % Absolute Neutrophils Absolute Lymphocytes Absolute Monocytes Absolute Eosinophils Absolute Basophils Carbonic Acid HCO3/H2CO3 Ratio ABG pH ABG pCO2 ABG pO2 ABG HCO3 ABG O2 Saturation ABG Base Excess FiO2 Sodium 142.9 Potassium 4.4 Chloride 103 Carbon Dioxide 31 H Anion Gap 9 BUN 29 H Creatinine 0.83 Est GFR ( Amer) > 60 Est GFR (Non-Af Amer) > 60 Glucose 188 H Calcium 8.9 Phosphorus Magnesium Total Bilirubin 0.6 AST 20 ALT 24 Alkaline Phosphatase 63 Total Protein 6.2 L Albumin 3.3 L 10/20/16 10/20/16 10/21/16 21:59 21:59 04:29 Creatine Kinase 22 L Cancelled CK-MB (CK-2) 1.90 Troponin I < 0.012 10/21/16 10/21/16 10/21/16 04:29 05:20 11:25 Creatine Kinase < 20 L 28 L CK-MB (CK-2) 1.78 Troponin I < 0.012 10/21/16 11:25 Creatine Kinase CK-MB (CK-2) 1.69 Troponin I 0.020 Impressions: Chest X-Ray 10/24/16 06:00 IMPRESSION: Right lower lobe collapse and consolidation Stable increased interstitial markings in both lungs, likely a combination of interstitial edema and fibrosis Stable prominent central pulmonary arteries and mild cardiomegaly Tubes and lines in good positioning Assessment & Plan - Diagnosis (1) Acute hypercapnic respiratory failure Is this a current diagnosis for this admission?: Yes Plan: Patient to continue mechanical ventilation on present vent setting (2) Acute exacerbation of chronic obstructive pulmonary disease (COPD) Is this a current diagnosis for this admission?: Yes (3) Hyperkalemia Is this a current diagnosis for this admission?: Yes
[2016-10-25] MEDS: PROPOFOL 100 ML IV PRN ×5 (01:45→20:22)
[2016-10-25] MEDS: IPRATROPIUM/ALBUTEROL 0.5-2.5 MG/3 ML AMPUL NEB SCH ×4 (02:12→20:26)
[2016-10-25] MEDS: METHYLPREDNISOLONE INJ 125 MG/2 ML SDV IV SCH ×3 (05:48→22:47)
[2016-10-25 06:06] LABS: ARTERIAL BLOOD O2 SATURATION 93.4 % (94-98)
[2016-10-25] MEDS: INSULIN LISPRO 100 UNIT/ML 3 ML VIAL SUBCUT PRN ×3 (06:38→18:37)
--- NOTE | 2016-10-25 07:01 | RADIOLOGY REPORT (SQ) ---
EXAM DESCRIPTION: CHEST SINGLE VIEW COMPLETED DATE/TIME: 10/25/2016 6:18 am REASON FOR STUDY: resp failure COMPARISON: 10/25/2016. EXAM PARAMETERS: NUMBER OF VIEWS: One view. TECHNIQUE: Single frontal radiographic view of the chest acquired. RADIATION DOSE: NA LIMITATIONS: None. FINDINGS: LUNGS AND PLEURA: Small airspace opacity of the left mid lung field. Moderate interstitia l markings. MEDIASTINUM AND HILAR STRUCTURES: No masses. Contour normal. HEART AND VASCULAR STRUCTURES: Mild enlargement of the cardiac silhouette. Atherosclerosis. BONES: No acute findings. HARDWARE: Adequate appearing endotracheal tube. Likely adequate NG tube obscured distally. OTHER: No other significant finding. IMPRESSION: No significant interval change TECHNICAL DOCUMENTATION: JOB ID: [id number]
[2016-10-25] MEDS: ENOXAPARIN SODIUM INJ 30 MG/0.3 ML DISP.SYRIN SUBCUT SCH (09:31)
[2016-10-25] MEDS: LEVOTHYROXINE SODIUM 0.1 MG TABLET PO SCH (09:32)
[2016-10-25] MEDS: LEVOTHYROXINE SODIUM 0.05 MG TABLET PO SCH (09:32)
[2016-10-25] MEDS: FUROSEMIDE INJ/PF 20 MG/2 ML SDV IV SCH (09:32)
[2016-10-25] MEDS: FAMOTIDINE INJ/PF 20 MG/2 ML SDV IV SCH ×2 (09:32→18:04)
[2016-10-25] MEDS: NYSTATIN TOPICAL POWDER 15 GM TP SCH ×2 (09:33→18:14)
--- NOTE | 2016-10-25 11:15 | PDOC PROGRESS REPORT ---
Subjective Progress Note for:: 10/25/16 Subjective:: intubated Mildly sedated Physical Exam Vital Signs: Temp Pulse Resp BP Pulse Ox 98.1 F 69 22 H 115/64 94 10/25/16 06:00 10/25/16 08:27 10/25/16 08:27 10/25/16 05:50 10/25/16 08:27 Intake & Output 10/24/16 10/25/16 10/26/16 06:59 06:59 06:59 Intake Total 1241 871 Output Total 2690 3155 60 Balance -1449 -2284 -60 Weight 77.6 kg 75.1 kg General appearance: PRESENT: no acute distress, cooperative, disheveled, morbidly obese Head exam: PRESENT: atraumatic, normocephalic Eye exam: PRESENT: conjunctiva pale, EOMI Mouth exam: PRESENT: dry mucosa, neck supple, tongue midline, other - ET tube in place Neck exam: ABSENT: carotid bruit, JVD, lymphadenopathy, thyromegaly Respiratory exam: PRESENT: decreased breath sounds, prolonged expiratory phas, rales, rhonchi, symmetrical, unlabored. ABSENT: crackles, retraction, stridor, tachypnea Cardiovascular exam: PRESENT: irregular rhythm Pulses: PRESENT: normal radial pulses GI/Abdominal exam: PRESENT: ascites Rectal exam: PRESENT: deferred Gentrourinary exam: PRESENT: indwelling catheter Extremities exam: PRESENT: +1 edema Neurological exam: PRESENT: awake Skin exam: PRESENT: dry, warm Results Laboratory Results: 10/24/16 08:20 10/24/16 08:20 10/24/16 10/24/16 10/25/16 08:20 08:20 03:44 Carbonic Acid HCO3/H2CO3 Ratio ABG pH ABG pCO2 ABG pO2 ABG HCO3 ABG O2 Saturation ABG Base Excess FiO2 Sodium Cancelled 142.9 Potassium Cancelled 4.4 Chloride Cancelled 103 Carbon Dioxide Cancelled 31 H Anion Gap Cancelled 9 BUN Cancelled 29 H Creatinine Cancelled 0.83 Est GFR ( Amer) Cancelled > 60 Est GFR (Non-Af Amer) Cancelled > 60 Glucose Cancelled 188 H Calcium Cancelled 8.9 Phosphorus 4.4 Magnesium 1.9 Total Bilirubin 0.6 AST 20 ALT 24 Alkaline Phosphatase 63 Total Protein 6.2 L Albumin 3.3 L Triglycerides 209 H 10/25/16 06:00 Carbonic Acid 1.48 H HCO3/H2CO3 Ratio 22:1 ABG pH 7.45 ABG pCO2 49.1 H ABG pO2 65.2 L ABG HCO3 33.4 H ABG O2 Saturation 93.4 L ABG Base Excess 8.0 FiO2 45% Sodium Potassium Chloride Carbon Dioxide Anion Gap BUN Creatinine Est GFR ( Amer) Est GFR (Non-Af Amer) Glucose Calcium Phosphorus Magnesium Total Bilirubin AST ALT Alkaline Phosphatase Total Protein Albumin Triglycerides 10/20/16 10/20/16 10/21/16 21:59 21:59 04:29 Creatine Kinase 22 L Cancelled CK-MB (CK-2) 1.90 Troponin I < 0.012 10/21/16 10/21/16 10/21/16 04:29 05:20 11:25 Creatine Kinase < 20 L 28 L CK-MB (CK-2) 1.78 Troponin I < 0.012 10/21/16 11:25 Creatine Kinase CK-MB (CK-2) 1.69 Troponin I 0.020 Impressions: Chest X-Ray 10/25/16 06:00 IMPRESSION: No significant interval change Assessment & Plan - Diagnosis (1) Acute exacerbation of chronic obstructive pulmonary disease (COPD) Is this a current diagnosis for this admission?: Yes Plan: Significantly improved if patient stable will consider extubation in the a.m. (2) Acute hypercapnic respiratory failure Is this a current diagnosis for this admission?: Yes (3) Pneumonia Qualifiers: Pneumonia type: due to unspecified organism Laterality: left Lung location: lower lobe of lung Qualified Code(s): J18.1 - Lobar pneumonia, unspecified organism Is this a current diagnosis for this admission?: Yes - Time Critical Time spent with patient: 25-34 minutes
[2016-10-25] MEDS: AZITHROMYCIN 500 MG in DEXTROSE 5%-WATER 250 ML IV SCH (18:04)
--- NOTE | 2016-10-25 19:35 | PDOC PROGRESS REPORT ---
Subjective Progress Note for:: 10/25/16 Subjective:: Patient is on pressure support ventilation SHE alert the blood pressure was slightly low today Physical Exam Vital Signs: Temp Pulse Resp BP Pulse Ox 97.5 F 51 L 17 105/47 L 96 10/25/16 18:45 10/25/16 17:58 10/25/16 18:45 10/25/16 18:35 10/25/16 18:45 Intake & Output 10/24/16 10/25/16 10/26/16 06:59 06:59 06:59 Intake Total 0033 747 5512 Output Total 2690 7815 1110 Balance -2279 -8079 140 Weight 77.6 kg 75.1 kg Eye exam: PRESENT: PERRLA Respiratory exam: PRESENT: wheezes Cardiovascular exam: PRESENT: +S1, +S2 GI/Abdominal exam: PRESENT: soft Neurological exam: PRESENT: alert Results Laboratory Results: 10/24/16 08:20 10/24/16 08:20 10/25/16 10/25/16 03:44 06:00 Carbonic Acid 1.48 H HCO3/H2CO3 Ratio 22:1 ABG pH 7.45 ABG pCO2 49.1 H ABG pO2 65.2 L ABG HCO3 33.4 H ABG O2 Saturation 93.4 L ABG Base Excess 8.0 FiO2 45% Triglycerides 209 H 10/20/16 10/20/16 10/21/16 21:59 21:59 04:29 Creatine Kinase 22 L Cancelled CK-MB (CK-2) 1.90 Troponin I < 0.012 10/21/16 10/21/16 10/21/16 04:29 05:20 11:25 Creatine Kinase < 20 L 28 L CK-MB (CK-2) 1.78 Troponin I < 0.012 10/21/16 11:25 Creatine Kinase CK-MB (CK-2) 1.69 Troponin I 0.020 Impressions: Chest X-Ray 10/25/16 06:00 IMPRESSION: No significant interval change Assessment & Plan - Diagnosis (1) Acute hypercapnic respiratory failure Is this a current diagnosis for this admission?: Yes (2) Acute exacerbation of chronic obstructive pulmonary disease (COPD) Is this a current diagnosis for this admission?: Yes (3) Hyperkalemia Is this a current diagnosis for this admission?: Yes (4) Hypotension Qualifiers: Hypotension type: unspecified hypotension type Qualified Code(s): I95.9 - Hypotension, unspecified Is this a current diagnosis for this admission?: Yes Plan: bolus with normal saline, and start maintenance fluid with isotonic saline at 70 cc/h
[2016-10-25] MEDS ORDERED: NORMAL SALINE 250 ML IV ONE (20:45)
[2016-10-25] MEDS: NORMAL SALINE 1000 ML 1,000 ML IV PRN (22:47)
[2016-10-26] MEDS: PROPOFOL 100 ML IV PRN ×2 (01:07→05:24)
[2016-10-26] MEDS: IPRATROPIUM/ALBUTEROL 0.5-2.5 MG/3 ML AMPUL NEB SCH ×4 (01:16→20:04)
[2016-10-26 05:22] LABS: ARTERIAL BLOOD BASE EXCESS 5.1 mmol/L; ARTERIAL BLOOD O2 SATURATION 95.6 % (94-98)
[2016-10-26] MEDS: METHYLPREDNISOLONE INJ 125 MG/2 ML SDV IV SCH ×3 (05:24→22:00)
[2016-10-26] MEDS: INSULIN LISPRO 100 UNIT/ML 3 ML VIAL SUBCUT PRN ×2 (05:25→23:21)
--- NOTE | 2016-10-26 07:55 | RADIOLOGY REPORT (SQ) ---
EXAM DESCRIPTION: CHEST SINGLE VIEW COMPLETED DATE/TIME: 10/26/2016 6:54 am REASON FOR STUDY: resp failure COMPARISON: 10/25/2016. EXAM PARAMETERS: NUMBER OF VIEWS: One view. TECHNIQUE: Single frontal radiographic view of the chest acquired. RADIATION DOSE: NA LIMITATIONS: None. FINDINGS: LUNGS AND PLEURA: Small airspace patchiness of the left mid lung field. Moderate intersti tial markings. Mild patchiness -streakiness of the right lower lobe. MEDIASTINUM AND HILAR STRUCTURES: No masses. Contour normal. HEART AND VASCULAR STRUCTURES: Prominent cardiac silhouette size. BONES: No acute findings. HARDWARE: Adequate appearing endotracheal tube and likely adequate NG tube obscured at the tip. OTHER: No other significant finding. IMPRESSION: No significant interval change. TECHNICAL DOCUMENTATION: JOB ID: [id number]
[2016-10-26 09:08] LABS: HEMATOCRIT 41.5 % (36.0-47.0); HEMOGLOBIN 13.2 g/dL (12.0-15.5); HGB HCT DIFFERENCE -1.9; MEAN CORPUSCULAR HGB CONC 31.9 g/dL (32.0-36.0); MEAN CORPUSCULAR VOLUME 91 fl (80-97); RED BLOOD COUNT 4.56 10^6/uL (3.72-5.28); RED CELL DISTRIBUTION WIDTH 16.5 % (11.5-14.0); WHITE BLOOD COUNT 12.1 10^3/uL (4.0-10.5)
[2016-10-26 09:26] LABS: ALANINE AMINOTRANSFERASE 34 U/L (9-52); ALBUMIN 3.5 g/dL (3.5-5.0); ALKALINE PHOSPHATASE 52 U/L (38-126); ANION GAP 10 (5-19); ASPARTATE AMINO TRANSFERASE 25 U/L (14-36); BILIRUBIN,DIRECT 0.4 mg/dL (0.0-0.4); BILIRUBIN,TOTAL 0.5 mg/dL (0.2-1.3); BLOOD UREA NITROGEN 35 mg/dL (7-20); CALCIUM 8.8 mg/dL (8.4-10.2); CARBON DIOXIDE 31 mmol/L (22-30); CHLORIDE 98 mmol/L (98-107); CREATININE RESULT 0.69 mg/dL (0.52-1.25); GLUCOSE 224 mg/dL (75-110); MAGNESIUM 2.3 mg/dL (1.6-2.3); SODIUM 138.9 mmol/L (137-145); TOTAL PROTEIN 6.5 g/dL (6.3-8.2)
[2016-10-26 09:38] LABS: BASOPHILS % (MANUAL) 0 % (0-2); EOSINOPHILS % (MANUAL) 0 % (0-6); LYMPHOCYTES % (MANUAL) 4 % (13-45); TOTAL CELLS COUNTED 100
[2016-10-26 09:40] LABS: ANISOCYTOSIS 1+; POLYCHROMASIA SLIGHT; TARGET CELLS SLIGHT
[2016-10-26 09:41] LABS: HYPOCHROMASIA SLIGHT; OVALOCYTES SLIGHT
[2016-10-26] MEDS: LEVOTHYROXINE SODIUM 0.1 MG TABLET PO SCH (10:16)
[2016-10-26] MEDS: LEVOTHYROXINE SODIUM 0.05 MG TABLET PO SCH (10:16)
[2016-10-26] MEDS: FAMOTIDINE INJ/PF 20 MG/2 ML SDV IV SCH ×2 (10:25→22:02)
[2016-10-26] MEDS: ENOXAPARIN SODIUM INJ 30 MG/0.3 ML DISP.SYRIN SUBCUT SCH (10:28)
[2016-10-26] MEDS: NORMAL SALINE 1000 ML 1,000 ML IV PRN (10:28)
[2016-10-26] MEDS: NYSTATIN TOPICAL POWDER 15 GM TP SCH ×2 (12:10→18:00)
[2016-10-26] MEDS ORDERED: FUROSEMIDE INJ/PF 40 MG/4 ML SDV ONE (12:59)
[2016-10-26] MEDS ORDERED: FUROSEMIDE INJ/PF 40 MG/4 ML SDV IV ONE (13:00)
[2016-10-26 13:18] LABS: ARTERIAL BLOOD BASE EXCESS 8.5 mmol/L; ARTERIAL BLOOD O2 SATURATION 95.6 % (94-98)
--- NOTE | 2016-10-26 14:50 | PDOC PROGRESS REPORT ---
Subjective Progress Note for:: 10/26/16 Subjective:: intubated awake Physical Exam Vital Signs: Temp Pulse Resp BP Pulse Ox 97.9 F 51 L 18 123/54 L 94 10/26/16 03:05 10/26/16 01:16 10/26/16 03:05 10/26/16 03:05 10/26/16 04:21 Intake & Output 10/25/16 10/26/16 10/27/16 06:59 06:59 06:59 Intake Total 871 3036 Output Total 3155 1735 Balance -2284 1301 Weight 75.1 kg 75.2 kg General appearance: PRESENT: no acute distress, cooperative, disheveled, obese, well-developed Head exam: PRESENT: atraumatic, normocephalic Eye exam: PRESENT: conjunctiva pale, EOMI Mouth exam: PRESENT: dry mucosa, neck supple, tongue midline, other - ET tube in place Neck exam: ABSENT: carotid bruit, JVD, lymphadenopathy, thyromegaly Respiratory exam: PRESENT: decreased breath sounds, prolonged expiratory phas, rhonchi, symmetrical, unlabored, wheezes. ABSENT: rales, retraction, stridor, tachypnea Cardiovascular exam: PRESENT: irregular rhythm Pulses: PRESENT: normal radial pulses GI/Abdominal exam: PRESENT: normal bowel sounds, soft. ABSENT: distended, guarding, mass, organolmegaly, rebound, tenderness Rectal exam: PRESENT: deferred Gentrourinary exam: PRESENT: indwelling catheter Musculoskeletal exam: PRESENT: normal inspection Neurological exam: PRESENT: awake Skin exam: PRESENT: dry, warm Results Laboratory Results: 10/24/16 08:20 10/24/16 08:20 10/26/16 05:10 Carbonic Acid 1.44 H HCO3/H2CO3 Ratio 21:1 ABG pH 7.42 ABG pCO2 47.7 H ABG pO2 77.2 L ABG HCO3 30.5 H ABG O2 Saturation 95.6 ABG Base Excess 5.1 FiO2 45% 10/20/16 21:59 Blood Blood Culture - Final NO GROWTH IN 5 DAYS 10/20/16 10/20/16 10/21/16 21:59 21:59 04:29 Creatine Kinase 22 L Cancelled CK-MB (CK-2) 1.90 Troponin I < 0.012 10/21/16 10/21/1617 04:29 05:20 11:25 Creatine Kinase < 20 L 28 L CK-MB (CK-2) 1.78 Troponin I < 0.012 10/21/16 11:25 Creatine Kinase CK-MB (CK-2) 1.69 Troponin I 0.020 Impressions: Chest X-Ray 10/26/16 06:00 IMPRESSION: No significant interval change. Assessment & Plan - Diagnosis (1) Acute exacerbation of chronic obstructive pulmonary disease (COPD) Is this a current diagnosis for this admission?: Yes Plan: Respiratory rate, minute ventilation, FiO2, airway pressures all suggest successful extubation (2) Acute hypercapnic respiratory failure Is this a current diagnosis for this admission?: Yes Plan: Stable will extubate Straight to BiPAP (3) Pneumonia Qualifiers: Pneumonia type: due to unspecified organism Laterality: left Lung location: lower lobe of lung Qualified Code(s): J18.1 - Lobar pneumonia, unspecified organism Is this a current diagnosis for this admission?: Yes Plan: Declining white count mild left shift continue current antibiotic therapy - Time Critical Time spent with patient: 35 or more minutes - 55 minutes extubation
[2016-10-26] MEDS: AZITHROMYCIN 500 MG in DEXTROSE 5%-WATER 250 ML IV SCH (18:00)
--- NOTE | 2016-10-26 20:27 | PDOC PROGRESS REPORT ---
Subjective Progress Note for:: 11/02/16 Subjective:: Patient was extubated today, she was seen by the bedside she is awake she is alert she is oriented to person place and time. Physical Exam Vital Signs: Temp Pulse Resp BP Pulse Ox 98.4 F 60 15 117/60 96 10/26/16 18:15 10/26/16 14:19 10/26/16 18:15 10/26/16 17:51 10/26/16 18:15 Intake & Output 10/25/16 10/26/16 10/27/16 06:59 06:59 06:59 Intake Total 871 3036 680 Output Total 3155 1735 2550 Balance -2284 1301 -1870 Weight 75.1 kg 75.2 kg General appearance: PRESENT: mild distress Head exam: PRESENT: atraumatic, normocephalic Eye exam: PRESENT: conjunctiva pink, EOMI, PERRLA Ear exam: PRESENT: normal external ear exam Mouth exam: PRESENT: moist, tongue midline Neck exam: PRESENT: full ROM Respiratory exam: PRESENT: wheezes Cardiovascular exam: PRESENT: RRR, +S1, +S2 Vascular exam: PRESENT: normal capillary refill GI/Abdominal exam: PRESENT: normal bowel sounds, soft Rectal exam: PRESENT: deferred Neurological exam: PRESENT: alert, awake, oriented to person, oriented to place , oriented to time, oriented to situation, CN II-XII grossly intact Psychiatric exam: PRESENT: appropriate affect, normal mood Skin exam: PRESENT: rash Results Laboratory Results: 10/26/16 08:45 10/26/16 08:45 10/26/16 10/26/16 10/26/16 05:10 08:45 08:45 WBC 12.1 H RBC 4.56 Hgb 13.2 Hct 41.5 MCV 91 MCH 29.0 MCHC 31.9 L RDW 16.5 H Plt Count 121 L Seg Neutrophils % Not Reportable Lymphocytes % Not Reportable Monocytes % Not Reportable Eosinophils % Not Reportable Basophils % Not Reportable Absolute Neutrophils Not Reportable Absolute Lymphocytes Not Reportable Absolute Monocytes Not Reportable Absolute Eosinophils Not Reportable Absolute Basophils Not Reportable Carbonic Acid 1.44 H HCO3/H2CO3 Ratio 21:1 ABG pH 7.42 ABG pCO2 47.7 H ABG pO2 77.2 L ABG HCO3 30.5 H ABG O2 Saturation 95.6 ABG Base Excess 5.1 FiO2 45% Sodium 138.9 Potassium 5.0 Chloride 98 Carbon Dioxide 31 H Anion Gap 10 BUN 35 H Creatinine 0.69 Est GFR ( Amer) > 60 Est GFR (Non-Af Amer) > 60 Glucose 224 H Calcium 8.8 Magnesium 2.3 Total Bilirubin 0.5 AST 25 ALT 34 Alkaline Phosphatase 52 Total Protein 6.5 Albumin 3.5 10/26/16 13:00 WBC RBC Hgb Hct MCV MCH MCHC RDW Plt Count Seg Neutrophils % Lymphocytes % Monocytes % Eosinophils % Basophils % Absolute Neutrophils Absolute Lymphocytes Absolute Monocytes Absolute Eosinophils Absolute Basophils Carbonic Acid 1.62 H HCO3/H2CO3 Ratio 21:1 ABG pH 7.43 ABG pCO2 53.8 H ABG pO2 78.0 L ABG HCO3 34.7 H ABG O2 Saturation 95.6 ABG Base Excess 8.5 FiO2 35% Sodium Potassium Chloride Carbon Dioxide Anion Gap BUN Creatinine Est GFR ( Amer) Est GFR (Non-Af Amer) Glucose Calcium Magnesium Total Bilirubin AST ALT Alkaline Phosphatase Total Protein Albumin 10/20/16 22:30 Tracheal Aspirate Gram Stain - Final 10/20/16 22:30 Tracheal Aspirate Sputum Culture - Final Streptococcus Pneumoniae Staphylococcus Aureus Acinetobacter Baumannii/Haem Reduced Normal [place] 10/20/16 21:59 Blood Blood Culture - Final NO GROWTH IN 5 DAYS 10/20/16 10/20/16 10/21/16 21:59 21:59 04:29 Creatine Kinase 22 L Cancelled CK-MB (CK-2) 1.90 Troponin I < 0.012 NT-Pro-B Natriuret Pep 10/21/16 10/21/16 10/21/16 04:29 05:20 11:25 Creatine Kinase < 20 L 28 L CK-MB (CK-2) 1.78 Troponin I < 0.012 NT-Pro-B Natriuret Pep 10/21/16 10/26/16 11:25 08:45 Creatine Kinase CK-MB (CK-2) 1.69 Troponin I 0.020 NT-Pro-B Natriuret Pep 295 Impressions: Chest X-Ray 10/26/16 06:00 IMPRESSION: No significant interval change. Assessment & Plan - Diagnosis (1) Acute hypercapnic respiratory failure Is this a current diagnosis for this admission?: Yes (2) Acute exacerbation of chronic obstructive pulmonary disease (COPD) Is this a current diagnosis for this admission?: Yes Plan: Continue IV Solu-Medrol, IV antibiotic, bronchodilators (3) Hyperkalemia Is this a current diagnosis for this admission?: Yes (4) Hypotension Qualifiers: Hypotension type: unspecified hypotension type Qualified Code(s): I95.9 - Hypotension, unspecified Is this a current diagnosis for this admission?: Yes (5) Hypothyroidism Qualifiers: Hypothyroidism type: unspecified Qualified Code(s): E03.9 - Hypothyroidism , unspecified Is this a current diagnosis for this admission?: Yes (6) Type 2 diabetes mellitus Qualifiers: Diabetes mellitus complication status: without complication Diabetes mellitus [facility] insulin use: without life science technician use Qualified Code(s): E11.9 - Type 2 diabetes mellitus without complications Is this a current diagnosis for this admission?: Yes
[2016-10-27] MEDS: IPRATROPIUM/ALBUTEROL 0.5-2.5 MG/3 ML AMPUL NEB SCH ×4 (02:30→20:25)
[2016-10-27] MEDS: NORMAL SALINE 1000 ML 1,000 ML IV PRN ×2 (03:25→16:46)
[2016-10-27 04:27] LABS: HEMATOCRIT 41.9 % (36.0-47.0); HEMOGLOBIN 13.7 g/dL (12.0-15.5); HGB HCT DIFFERENCE -0.8; MEAN CORPUSCULAR HEMOGLOBIN 29.8 pg (27.0-33.4); MEAN CORPUSCULAR HGB CONC 32.8 g/dL (32.0-36.0); MEAN CORPUSCULAR VOLUME 91 fl (80-97); RED BLOOD COUNT 4.61 10^6/uL (3.72-5.28); RED CELL DISTRIBUTION WIDTH 16.1 % (11.5-14.0); WHITE BLOOD COUNT 11.3 10^3/uL (4.0-10.5)
[2016-10-27 04:38] LABS: ALANINE AMINOTRANSFERASE 31 U/L (9-52); ALBUMIN 3.4 g/dL (3.5-5.0); ALKALINE PHOSPHATASE 56 U/L (38-126); ANION GAP 7 (5-19); ASPARTATE AMINO TRANSFERASE 18 U/L (14-36); BILIRUBIN,DIRECT 0.4 mg/dL (0.0-0.4); BILIRUBIN,TOTAL 0.8 mg/dL (0.2-1.3); BLOOD UREA NITROGEN 29 mg/dL (7-20); CALCIUM 9.2 mg/dL (8.4-10.2); CARBON DIOXIDE 34 mmol/L (22-30); CHLORIDE 99 mmol/L (98-107); CREATININE RESULT 0.74 mg/dL (0.52-1.25); GLUCOSE 168 mg/dL (75-110); MAGNESIUM 1.9 mg/dL (1.6-2.3); PHOSPHORUS 3.8 mg/dL (2.5-4.5); POTASSIUM 4.5 mmol/L (3.6-5.0); SODIUM 139.9 mmol/L (137-145); TOTAL PROTEIN 6.4 g/dL (6.3-8.2)
[2016-10-27 04:54] LABS: BASOPHILS % (MANUAL) 0 % (0-2); EOSINOPHILS % (MANUAL) 0 % (0-6); LYMPHOCYTES % (MANUAL) 2 % (13-45); TOTAL CELLS COUNTED 100
[2016-10-27 04:55] LABS: ANISOCYTOSIS 1+; TOXIC GRANULATION SLIGHT
[2016-10-27 05:45] LABS: ARTERIAL BLOOD BASE EXCESS 8.6 mmol/L; ARTERIAL BLOOD O2 SATURATION 95.9 % (94-98)
[2016-10-27] MEDS: METHYLPREDNISOLONE INJ 125 MG/2 ML SDV IV SCH ×3 (05:47→21:36)
[2016-10-27] MEDS: LEVOTHYROXINE SODIUM 0.1 MG TABLET PO SCH (08:12)
[2016-10-27] MEDS: ENOXAPARIN SODIUM INJ 30 MG/0.3 ML DISP.SYRIN SUBCUT SCH (08:12)
[2016-10-27] MEDS: LEVOTHYROXINE SODIUM 0.05 MG TABLET PO SCH (08:12)
--- NOTE | 2016-10-27 08:36 | RADIOLOGY REPORT (SQ) ---
EXAM DESCRIPTION: CHEST SINGLE VIEW COMPLETED DATE/TIME: 10/27/2016 7:11 am REASON FOR STUDY: resp failure COMPARISON: 10/26/2016 NUMBER OF VIEWS: One view. TECHNIQUE: Single frontal radiographic image of the chest acquired. LIMITATIONS: None. FINDINGS: LUNGS AND PLEURA: Residual airspace disease in the left lung. No pneumothorax. There is a background of chronic interstitial changes. MEDIASTINUM AND HEART: Stable heart size and mediastinal structures. SUPPORT DEVICES: Interval removal of nasogastric and endotracheal tubes. BONY STRUCTURES: No acute findings. HARDWARE: None. OTHER: No other significant finding. IMPRESSION: Stable chest status post extubation.
[2016-10-27] MEDS: SULFAMETHOXAZOLE/TRIMETHOPRIM 800-160 MG TABLET PO SCH ×2 (10:42→17:12)
[2016-10-27] MEDS: FAMOTIDINE INJ/PF 20 MG/2 ML SDV IV SCH ×2 (10:42→21:36)
[2016-10-27] MEDS: NYSTATIN TOPICAL POWDER 15 GM TP SCH ×2 (10:43→17:12)
--- NOTE | 2016-10-27 12:25 | PDOC PROGRESS REPORT ---
Subjective Progress Note for:: 10/27/16 Subjective:: 24 h s/p intubation alert awake Physical Exam Vital Signs: Temp Pulse Resp BP Pulse Ox 97.7 F 54 L 18 118/90 H 96 10/27/16 06:30 10/27/16 02:30 10/27/16 06:30 10/27/16 06:24 10/27/16 06:30 Intake & Output 10/26/16 10/27/16 10/28/16 06:59 06:59 06:59 Intake Total 3036 1917 Output Total 5537 2840 Balance 1301 -1073 Weight 75.2 kg 75.5 kg General appearance: PRESENT: no acute distress, cooperative, disheveled, obese, well-developed Head exam: PRESENT: atraumatic, normocephalic Eye exam: PRESENT: conjunctiva pale, EOMI Mouth exam: PRESENT: dry mucosa, neck supple, tongue midline Teeth exam: PRESENT: poor dentation Neck exam: ABSENT: carotid bruit, JVD, lymphadenopathy, thyromegaly Respiratory exam: PRESENT: crackles, decreased breath sounds, prolonged expiratory phas, rhonchi, symmetrical. ABSENT: rales, retraction, stridor, tachypnea, unlabored Cardiovascular exam: ABSENT: irregular rhythm Pulses: PRESENT: normal radial pulses GI/Abdominal exam: PRESENT: normal bowel sounds, soft. ABSENT: distended, guarding, mass, organolmegaly, rebound, tenderness Rectal exam: PRESENT: deferred Gentrourinary exam: PRESENT: indwelling catheter Musculoskeletal exam: PRESENT: normal inspection Neurological exam: PRESENT: alert, awake Psychiatric exam: PRESENT: flat affect Skin exam: PRESENT: dry, warm Results Laboratory Results: 10/27/16 04:00 10/27/16 04:00 10/26/16 10/26/16 10/26/16 08:45 08:45 13:00 WBC 12.1 H RBC 4.56 Hgb 13.2 Hct 41.5 MCV 91 MCH 29.0 MCHC 31.9 L RDW 16.5 H Plt Count 121 L Seg Neutrophils % Not Reportable Lymphocytes % Not Reportable Monocytes % Not Reportable Eosinophils % Not Reportable Basophils % Not Reportable Absolute Neutrophils Not Reportable Absolute Lymphocytes Not Reportable Absolute Monocytes Not Reportable Absolute Eosinophils Not Reportable Absolute Basophils Not Reportable Carbonic Acid 1.62 H HCO3/H2CO3 Ratio 21:1 ABG pH 7.43 ABG pCO2 53.8 H ABG pO2 78.0 L ABG HCO3 34.7 H ABG O2 Saturation 95.6 ABG Base Excess 8.5 FiO2 35% Sodium 138.9 Potassium 5.0 Chloride 98 Carbon Dioxide 31 H Anion Gap 10 BUN 35 H Creatinine 0.69 Est GFR ( Amer) > 60 Est GFR (Non-Af Amer) > 60 Glucose 224 H Calcium 8.8 Phosphorus Magnesium 2.3 Total Bilirubin 0.5 AST 25 ALT 34 Alkaline Phosphatase 52 Total Protein 6.5 Albumin 3.5 10/27/16 10/27/16 10/27/16 04:00 04:00 05:30 WBC 11.3 H RBC 4.61 Hgb 13.7 Hct 41.9 MCV 91 MCH 29.8 MCHC 32.8 RDW 16.1 H Plt Count 137 L Seg Neutrophils % Not Reportable Lymphocytes % Not Reportable Monocytes % Not Reportable Eosinophils % Not Reportable Basophils % Not Reportable Absolute Neutrophils Not Reportable Absolute Lymphocytes Not Reportable Absolute Monocytes Not Reportable Absolute Eosinophils Not Reportable Absolute Basophils Not Reportable Carbonic Acid 1.70 H HCO3/H2CO3 Ratio 20:1 ABG pH 7.41 ABG pCO2 56.4 H ABG pO2 81.3 ABG HCO3 35.2 H ABG O2 Saturation 95.9 ABG Base Excess 8.6 FiO2 3L Sodium 139.9 Potassium 4.5 Chloride 99 Carbon Dioxide 34 H Anion Gap 7 BUN 29 H Creatinine 0.74 Est GFR ( Amer) > 60 Est GFR (Non-Af Amer) > 60 Glucose 168 H Calcium 9.2 Phosphorus 3.8 Magnesium 1.9 Total Bilirubin 0.8 AST 18 ALT 31 Alkaline Phosphatase 56 Total Protein 6.4 Albumin 3.4 L 10/20/16 22:30 Tracheal Aspirate Gram Stain - Final 10/20/16 22:30 Tracheal Aspirate Sputum Culture - Final Streptococcus Pneumoniae Staphylococcus Aureus Acinetobacter Baumannii/Haem Reduced Normal [place] 10/20/16 10/20/16 10/21/16 21:59 21:59 04:29 Creatine Kinase 22 L Cancelled CK-MB (CK-2) 1.90 Troponin I < 0.012 NT-Pro-B Natriuret Pep 10/21/16 10/21/16 10/21/16 04:29 05:20 11:25 Creatine Kinase < 20 L 28 L CK-MB (CK-2) 1.78 Troponin I < 0.012 NT-Pro-B Natriuret Pep 10/21/16 10/26/16 11:25 08:45 Creatine Kinase CK-MB (CK-2) 1.69 Troponin I 0.020 NT-Pro-B Natriuret Pep 295 Assessment & Plan - Diagnosis (1) Acute exacerbation of chronic obstructive pulmonary disease (COPD) Is this a current diagnosis for this admission?: Yes (2) Acute hypercapnic respiratory failure Is this a current diagnosis for this admission?: Yes (3) Pneumonia Qualifiers: Pneumonia type: due to unspecified organism Laterality: left Lung location: lower lobe of lung Qualified Code(s): J18.1 - Lobar pneumonia, unspecified organism Is this a current diagnosis for this admission?: Yes - Time Critical Time spent with patient: 35 or more minutes
[2016-10-27] MEDS: INSULIN LISPRO 100 UNIT/ML 3 ML VIAL SUBCUT PRN (17:11)
[2016-10-27] MEDS: AZITHROMYCIN 500 MG in DEXTROSE 5%-WATER 250 ML IV SCH (17:12)
--- NOTE | 2016-10-27 18:50 | PDOC PROGRESS REPORT ---
Subjective Progress Note for:: 10/27/16 Subjective:: Patient was seen by the bedside, she will be downgraded to telemetry bed from ICU Physical Exam Vital Signs: Temp Pulse Resp BP Pulse Ox 97.9 F 54 L 20 158/70 H 97 10/27/16 18:22 10/27/16 14:19 10/27/16 18:22 10/27/16 18:22 10/27/16 18:22 Intake & Output 10/26/16 10/27/16 10/28/16 06:59 06:59 06:59 Intake Total 3036 1847 2873 Output Total 1732 2920 1370 Balance 1301 -1073 1503 Weight 75.2 kg 75.5 kg General appearance: PRESENT: no acute distress, well-developed, well-nourished Head exam: PRESENT: atraumatic, normocephalic Eye exam: PRESENT: PERRLA Neck exam: PRESENT: full ROM Respiratory exam: PRESENT: wheezes Cardiovascular exam: PRESENT: RRR, +S1, +S2 Pulses: PRESENT: normal dorsalis pedis pul, +2 pedal pulses bilateral Vascular exam: PRESENT: normal capillary refill GI/Abdominal exam: PRESENT: normal bowel sounds, soft Rectal exam: PRESENT: deferred Neurological exam: PRESENT: alert, awake, oriented to person, oriented to place , oriented to time, oriented to situation, CN II-XII grossly intact Psychiatric exam: PRESENT: appropriate affect, normal mood Skin exam: PRESENT: dry, intact, warm Results Laboratory Results: 10/27/16 04:00 10/27/16 04:00 10/27/16 10/27/16 10/27/16 04:00 04:00 05:30 WBC 11.3 H RBC 4.61 Hgb 13.7 Hct 41.9 MCV 91 MCH 29.8 MCHC 32.8 RDW 16.1 H Plt Count 137 L Seg Neutrophils % Not Reportable Lymphocytes % Not Reportable Monocytes % Not Reportable Eosinophils % Not Reportable Basophils % Not Reportable Absolute Neutrophils Not Reportable Absolute Lymphocytes Not Reportable Absolute Monocytes Not Reportable Absolute Eosinophils Not Reportable Absolute Basophils Not Reportable Carbonic Acid 1.70 H HCO3/H2CO3 Ratio 20:1 ABG pH 7.41 ABG pCO2 56.4 H ABG pO2 81.3 ABG HCO3 35.2 H ABG O2 Saturation 95.9 ABG Base Excess 8.6 FiO2 3L Sodium 139.9 Potassium 4.5 Chloride 99 Carbon Dioxide 34 H Anion Gap 7 BUN 29 H Creatinine 0.74 Est GFR ( Amer) > 60 Est GFR (Non-Af Amer) > 60 Glucose 168 H Calcium 9.2 Phosphorus 3.8 Magnesium 1.9 Total Bilirubin 0.8 AST 18 ALT 31 Alkaline Phosphatase 56 Total Protein 6.4 Albumin 3.4 L 10/20/16 10/20/16 10/21/16 21:59 21:59 04:29 Creatine Kinase 22 L Cancelled CK-MB (CK-2) 1.90 Troponin I < 0.012 NT-Pro-B Natriuret Pep 10/21/16 10/21/16 10/21/16 04:29 05:20 11:25 Creatine Kinase < 20 L 28 L CK-MB (CK-2) 1.78 Troponin I < 0.012 NT-Pro-B Natriuret Pep 10/21/16 10/26/16 11:25 08:45 Creatine Kinase CK-MB (CK-2) 1.69 Troponin I 0.020 NT-Pro-B Natriuret Pep 295 Impressions: Chest X-Ray 10/27/16 06:00 IMPRESSION: Stable chest status post extubation. Assessment & Plan - Diagnosis (1) Acute hypercapnic respiratory failure Is this a current diagnosis for this admission?: Yes (2) Acute exacerbation of chronic obstructive pulmonary disease (COPD) Is this a current diagnosis for this admission?: Yes (3) Hyperkalemia Is this a current diagnosis for this admission?: Yes (4) Hypotension Qualifiers: Hypotension type: unspecified hypotension type Qualified Code(s): I95.9 - Hypotension, unspecified Is this a current diagnosis for this admission?: Yes (5) Hypothyroidism Qualifiers: Hypothyroidism type: unspecified Qualified Code(s): E03.9 - Hypothyroidism , unspecified Is this a current diagnosis for this admission?: Yes (6) Type 2 diabetes mellitus Qualifiers: Diabetes mellitus complication status: without complication Diabetes mellitus intermediate manager insulin use: without intermediate manager use Qualified Code(s): E11.9 - Type 2 diabetes mellitus without complications Is this a current diagnosis for this admission?: Yes - Plan Summary Plan Summary: She will be transferred to a telemetry bed, she will continue IV Solu-Medrol, IV antibiotic and p.o. Bactrim and all other medications as listed in the transfer medication list
[2016-10-28] MEDS: IPRATROPIUM/ALBUTEROL 0.5-2.5 MG/3 ML AMPUL NEB SCH ×4 (03:10→20:06)
[2016-10-28 04:16] LABS: HEMATOCRIT 41.7 % (36.0-47.0); HEMOGLOBIN 13.5 g/dL (12.0-15.5); HGB HCT DIFFERENCE -1.2; MEAN CORPUSCULAR HEMOGLOBIN 29.4 pg (27.0-33.4); MEAN CORPUSCULAR HGB CONC 32.4 g/dL (32.0-36.0); MEAN CORPUSCULAR VOLUME 91 fl (80-97); WHITE BLOOD COUNT 9.4 10^3/uL (4.0-10.5)
[2016-10-28 04:26] LABS: ALANINE AMINOTRANSFERASE 31 U/L (9-52); ALBUMIN 3.2 g/dL (3.5-5.0); ALKALINE PHOSPHATASE 53 U/L (38-126); ANION GAP 5 (5-19); ASPARTATE AMINO TRANSFERASE 15 U/L (14-36); BILIRUBIN,DIRECT 0.4 mg/dL (0.0-0.4); BILIRUBIN,TOTAL 0.6 mg/dL (0.2-1.3); BLOOD UREA NITROGEN 22 mg/dL (7-20); CALCIUM 9.2 mg/dL (8.4-10.2); CARBON DIOXIDE 32 mmol/L (22-30); CHLORIDE 101 mmol/L (98-107); CREATININE RESULT 0.65 mg/dL (0.52-1.25); GLUCOSE 230 mg/dL (75-110); MAGNESIUM 1.9 mg/dL (1.6-2.3); POTASSIUM 5.1 mmol/L (3.6-5.0); SODIUM 138.3 mmol/L (137-145); TOTAL PROTEIN 6.1 g/dL (6.3-8.2)
[2016-10-28 04:40] LABS: BASOPHILS % (MANUAL) 0 % (0-2); EOSINOPHILS % (MANUAL) 0 % (0-6); LYMPHOCYTES % (MANUAL) 6 % (13-45); TOTAL CELLS COUNTED 100
[2016-10-28 04:42] LABS: ANISOCYTOSIS 1+; OVALOCYTES SLIGHT; POIKILOCYTOSIS SLIGHT; TARGET CELLS SLIGHT; TOXIC GRANULATION SLIGHT; TOXIC VACUOLATION PRESENT
[2016-10-28] MEDS: NORMAL SALINE 1000 ML 1,000 ML IV PRN ×2 (05:51→21:25)
[2016-10-28] MEDS: METHYLPREDNISOLONE INJ 125 MG/2 ML SDV IV SCH (05:52)
[2016-10-28 06:32] LABS: ARTERIAL BLOOD BASE EXCESS 6.6 mmol/L; ARTERIAL BLOOD O2 SATURATION 93.9 % (94-98)
--- NOTE | 2016-10-28 08:21 | RADIOLOGY REPORT (SQ) ---
EXAM DESCRIPTION: CHEST SINGLE VIEW COMPLETED DATE/TIME: 10/28/2016 7:26 am REASON FOR STUDY: resp failure COMPARISON: 10/27/2016. EXAM PARAMETERS: NUMBER OF VIEWS: One view. TECHNIQUE: Single frontal radiographic view of the chest acquired. RADIATION DOSE: NA LIMITATIONS: None. FINDINGS: LUNGS AND PLEURA: Chronic interstitial changes. Linear density in the left mid lung uncha nged. No large pleural effusions. No pneumothorax. MEDIASTINUM AND HILAR STRUCTURES: No masses. Contour normal. HEART AND VASCULAR STRUCTURES: Heart normal in size. Normal vasculature. BONES: No acute findings. HARDWARE: None in the chest. OTHER: No other significant finding. IMPRESSION: STABLE APPEARANCE OF THE CHEST. TECHNICAL DOCUMENTATION: JOB ID: [id number]
[2016-10-28] MEDS: FAMOTIDINE INJ/PF 20 MG/2 ML SDV IV SCH ×2 (09:20→21:24)
[2016-10-28] MEDS: LEVOTHYROXINE SODIUM 0.1 MG TABLET PO SCH (09:20)
[2016-10-28] MEDS: ENOXAPARIN SODIUM INJ 30 MG/0.3 ML DISP.SYRIN SUBCUT SCH (09:20)
[2016-10-28] MEDS: LEVOTHYROXINE SODIUM 0.05 MG TABLET PO SCH (09:20)
[2016-10-28] MEDS: SULFAMETHOXAZOLE/TRIMETHOPRIM 800-160 MG TABLET PO SCH ×2 (09:20→17:44)
[2016-10-28] MEDS: NYSTATIN TOPICAL POWDER 15 GM TP SCH (09:22)
--- NOTE | 2016-10-28 09:53 | PDOC PROGRESS REPORT ---
Subjective Progress Note for:: 10/28/16 Subjective:: Patient reported stable breathing effort on supplemental oxygen via nasal cannula. No chest pain. No fever or chills. No nausea, vomiting or abdominal pain. Requesting for diet consistency advance. Physical Exam Vital Signs: Temp Pulse Resp BP Pulse Ox 97.7 F 55 L 17 129/54 H 96 10/28/16 04:00 10/28/16 08:48 10/28/16 08:48 10/28/16 03:52 10/28/16 08:48 Intake & Output 10/27/16 10/28/16 10/29/16 06:59 06:59 06:59 Intake Total 1847 4533 Output Total 2920 3220 Balance -1073 1313 Weight 75.5 kg 75.1 kg General appearance: PRESENT: no acute distress, obese Head exam: PRESENT: atraumatic, normocephalic Eye exam: PRESENT: conjunctiva pink. ABSENT: conjunctiva pale, scleral icterus Mouth exam: PRESENT: moist Respiratory exam: PRESENT: clear to auscultation oh, decreased breath sounds Cardiovascular exam: PRESENT: RRR. ABSENT: diastolic murmur, rubs, systolic murmur GI/Abdominal exam: PRESENT: normal bowel sounds, soft. ABSENT: distended, guarding, mass, organolmegaly, rebound, tenderness Extremities exam: ABSENT: pedal edema Musculoskeletal exam: PRESENT: normal inspection Neurological exam: PRESENT: alert, awake, oriented to person, oriented to place , oriented to time, oriented to situation, CN II-XII grossly intact. ABSENT: motor sensory deficit Psychiatric exam: PRESENT: appropriate affect, normal mood. ABSENT: homicidal ideation, suicidal ideation Skin exam: PRESENT: dry, intact, warm. ABSENT: cyanosis, rash Results Laboratory Results: 10/28/16 03:58 10/28/16 03:58 10/28/16 10/28/16 10/28/16 03:58 03:58 06:29 WBC 9.4 RBC 4.60 Hgb 13.5 Hct 41.7 MCV 91 MCH 29.4 MCHC 32.4 RDW 16.0 H Plt Count 132 L Seg Neutrophils % Not Reportable Lymphocytes % Not Reportable Monocytes % Not Reportable Eosinophils % Not Reportable Basophils % Not Reportable Absolute Neutrophils Not Reportable Absolute Lymphocytes Not Reportable Absolute Monocytes Not Reportable Absolute Eosinophils Not Reportable Absolute Basophils Not Reportable Carbonic Acid 1.70 H HCO3/H2CO3 Ratio 19:1 ABG pH 7.39 ABG pCO2 56.6 H ABG pO2 71.7 L ABG HCO3 33.3 H ABG O2 Saturation 93.9 L ABG Base Excess 6.6 FiO2 3 LITERS Sodium 138.3 Potassium 5.1 H Chloride 101 Carbon Dioxide 32 H Anion Gap 5 BUN 22 H Creatinine 0.65 Est GFR ( Amer) > 60 Est GFR (Non-Af Amer) > 60 Glucose 230 H Calcium 9.2 Magnesium 1.9 Total Bilirubin 0.6 AST 15 ALT 31 Alkaline Phosphatase 53 Total Protein 6.1 L Albumin 3.2 L 10/20/16 10/20/16 10/21/16 21:59 21:59 04:29 Creatine Kinase 22 L Cancelled CK-MB (CK-2) 1.90 Troponin I < 0.012 NT-Pro-B Natriuret Pep 10/21/16 10/21/16 10/21/16 04:29 05:20 11:25 Creatine Kinase < 20 L 28 L CK-MB (CK-2) 1.78 Troponin I < 0.012 NT-Pro-B Natriuret Pep 10/21/16 10/26/16 11:25 08:45 Creatine Kinase CK-MB (CK-2) 1.69 Troponin I 0.020 NT-Pro-B Natriuret Pep 295 Impressions: Chest X-Ray 10/28/16 06:00 IMPRESSION: STABLE APPEARANCE OF THE CHEST. Assessment & Plan - Diagnosis (1) Acute exacerbation of chronic obstructive pulmonary disease (COPD) Is this a current diagnosis for this admission?: Yes Plan: See covering attending physician orders. She has remain fairly stable s/p extubation. (2) Acute hypercapnic respiratory failure Is this a current diagnosis for this admission?: Yes Plan: See covering attending physician orders. She has remain fairly stable s/p extubation. Her ABG did suggest persistent hypercapnia. (3) Pneumonia Qualifiers: Pneumonia type: due to unspecified organism Laterality: left Lung location: lower lobe of lung Qualified Code(s): J18.1 - Lobar pneumonia, unspecified organism Is this a current diagnosis for this admission?: Yes Plan: Continue oral Septra administration based on her sputum culture findings. She will complete IV Zithromax administration in the next 24 hours. (4) Hyperkalemia Is this a current diagnosis for this admission?: Yes Plan: Improving but still elevated as per today's chemistry report. Continue to monitor and adjust management as necessary. (5) Type 2 diabetes mellitus Qualifiers: Diabetes mellitus complication status: without complication Diabetes mellitus [facility] insulin use: without [facility] use Qualified Code(s): E11.9 - Type 2 diabetes mellitus without complications Is this a current diagnosis for this admission?: Yes Plan: Advance diet to soft consistency with DM restrictions. (6) Hypothyroidism Qualifiers: Hypothyroidism type: unspecified Qualified Code(s): E03.9 - Hypothyroidism , unspecified Is this a current diagnosis for this admission?: Yes Plan: See covering attending physician orders. - Time Time Spent with patient: 25-34 minutes Medications reviewed and adjusted accordingly: Yes Anticipated discharge: Other Within: Other - Inpatient Certification Based on my medical assessment, after consideration of the patient's comorbidities, presenting symptoms, or acuity I expect that the services needed warrant INPATIENT care.: Yes I certify that my determination is in accordance with my understanding of Medicare's requirements for reasonable and necessary INPATIENT services [42 CFR 412.3e].: Yes Medical Necessity: Need Close Monitoring Due to Risk of Patient Decompensation, Need For IV Fluids, Need For Continuous Telemetry Monitoring, Need for Nebulizer Therapy and Monitoring of Response, Need for IV Antibiotics, Risk of Complication if Not Cared For in Hospital Post Hospital Care: D/C Resident Surgeon Documentation - Plan Summary Plan Summary: See covering attending physician orders.
[2016-10-28] MEDS: METHYLPREDNISOLONE INJ 40 MG/1 ML SDV IV SCH ×2 (13:45→21:24)
[2016-10-28] MEDS: INSULIN LISPRO 100 UNIT/ML 3 ML VIAL SUBCUT PRN ×2 (17:47→21:29)
--- NOTE | 2016-10-28 18:01 | PDOC PROGRESS REPORT ---
Subjective Progress Note for:: 10/28/16 Subjective:: slept all night w/o pap (per patient)alert awake Physical Exam Vital Signs: Temp Pulse Resp BP Pulse Ox 97.7 F 57 L 12 129/54 H 96 10/28/16 04:00 10/28/16 07:00 10/28/16 04:00 10/28/16 03:52 10/28/16 04:00 Intake & Output 10/27/16 10/28/16 10/29/16 06:59 06:59 06:59 Intake Total 1847 4533 Output Total 2920 3220 Balance -1073 1313 Weight 75.5 kg 75.1 kg General appearance: PRESENT: no acute distress, cooperative, disheveled, obese Head exam: PRESENT: atraumatic, normocephalic Eye exam: PRESENT: conjunctiva pale, EOMI Mouth exam: PRESENT: dry mucosa, neck supple Neck exam: ABSENT: carotid bruit, JVD, lymphadenopathy, thyromegaly Respiratory exam: PRESENT: decreased breath sounds, prolonged expiratory phas, rhonchi, symmetrical, unlabored, wheezes Cardiovascular exam: PRESENT: RRR, +S1, +S2 Pulses: PRESENT: normal radial pulses GI/Abdominal exam: PRESENT: normal bowel sounds, soft. ABSENT: distended, guarding, mass, organolmegaly, rebound, tenderness Rectal exam: PRESENT: deferred Gentrourinary exam: PRESENT: indwelling catheter Musculoskeletal exam: PRESENT: normal inspection Neurological exam: PRESENT: alert, awake Psychiatric exam: PRESENT: flat affect Skin exam: PRESENT: dry, warm Results Laboratory Results: 10/28/16 03:58 10/28/16 03:58 10/28/16 10/28/16 10/28/16 03:58 03:58 06:29 WBC 9.4 RBC 4.60 Hgb 13.5 Hct 41.7 MCV 91 MCH 29.4 MCHC 32.4 RDW 16.0 H Plt Count 132 L Seg Neutrophils % Not Reportable Lymphocytes % Not Reportable Monocytes % Not Reportable Eosinophils % Not Reportable Basophils % Not Reportable Absolute Neutrophils Not Reportable Absolute Lymphocytes Not Reportable Absolute Monocytes Not Reportable Absolute Eosinophils Not Reportable Absolute Basophils Not Reportable Carbonic Acid 1.70 H HCO3/H2CO3 Ratio 19:1 ABG pH 7.39 ABG pCO2 56.6 H ABG pO2 71.7 L ABG HCO3 33.3 H ABG O2 Saturation 93.9 L ABG Base Excess 6.6 FiO2 3 LITERS Sodium 138.3 Potassium 5.1 H Chloride 101 Carbon Dioxide 32 H Anion Gap 5 BUN 22 H Creatinine 0.65 Est GFR ( Amer) > 60 Est GFR (Non-Af Amer) > 60 Glucose 230 H Calcium 9.2 Magnesium 1.9 Total Bilirubin 0.6 AST 15 ALT 31 Alkaline Phosphatase 53 Total Protein 6.1 L Albumin 3.2 L 10/20/16 10/20/16 10/21/16 21:59 21:59 04:29 Creatine Kinase 22 L Cancelled CK-MB (CK-2) 1.90 Troponin I < 0.012 NT-Pro-B Natriuret Pep 10/21/16 10/21/16 10/21/16 04:29 05:20 11:25 Creatine Kinase < 20 L 28 L CK-MB (CK-2) 1.78 Troponin I < 0.012 NT-Pro-B Natriuret Pep 10/21/16 10/26/16 11:25 08:45 Creatine Kinase CK-MB (CK-2) 1.69 Troponin I 0.020 NT-Pro-B Natriuret Pep 295 Impressions: Chest X-Ray 10/28/16 06:00 IMPRESSION: STABLE APPEARANCE OF THE CHEST. Assessment & Plan - Diagnosis (1) Acute exacerbation of chronic obstructive pulmonary disease (COPD) Is this a current diagnosis for this admission?: Yes Plan: s/p sucessful extubation no distress continues mild wheezing (2) Acute hypercapnic respiratory failure Is this a current diagnosis for this admission?: Yes Plan: stable 3 L n/c (3) Pneumonia Qualifiers: Pneumonia type: due to unspecified organism Laterality: left Lung location: lower lobe of lung Qualified Code(s): J18.1 - Lobar pneumonia, unspecified organism Is this a current diagnosis for this admission?: Yes Plan: 10/20/16 22:30 Gram Stain - Final Tracheal Aspirate Sputum Culture - Final Streptococcus Pneumoniae Staphylococcus Aureus Acinetobacter Baumannii/Haem Reduced Normal [place] all sensitive septra ds and levoquin et al - Time Critical Time spent with patient: 35 or more minutes - 40 min
[2016-10-29] MEDS: IPRATROPIUM/ALBUTEROL 0.5-2.5 MG/3 ML AMPUL NEB SCH ×4 (02:05→20:14)
[2016-10-29 04:22] LABS: ABSOLUTE LYMPHOCYTES (AUTO) 0.6 10^3/uL (0.5-4.7); ABSOLUTE MONOCYTES (AUTO) 0.3 10^3/uL (0.1-1.4); ABSOLUTE NEUT (AUTO) 10.4 10^3/uL (1.7-8.2); BASOPHILS % (AUTO) 0.2 % (0-2); HEMATOCRIT 41.7 % (36.0-47.0); HEMOGLOBIN 13.5 g/dL (12.0-15.5); HGB HCT DIFFERENCE -1.2; LYMPHOCYTES % (AUTO) 5.2 % (13-45); MEAN CORPUSCULAR HEMOGLOBIN 29.2 pg (27.0-33.4); MEAN CORPUSCULAR HGB CONC 32.4 g/dL (32.0-36.0); MEAN CORPUSCULAR VOLUME 90 fl (80-97); RED BLOOD COUNT 4.62 10^6/uL (3.72-5.28); SEGMENTED NEUTROPHILS % (AUTO) 91.6 % (42-78); WHITE BLOOD COUNT 11.4 10^3/uL (4.0-10.5)
[2016-10-29 04:32] LABS: ANION GAP 7 (5-19); BLOOD UREA NITROGEN 26 mg/dL (7-20); CARBON DIOXIDE 29 mmol/L (22-30); CHLORIDE 102 mmol/L (98-107); CREATININE RESULT 0.73 mg/dL (0.52-1.25); GLUCOSE 218 mg/dL (75-110); POTASSIUM 4.7 mmol/L (3.6-5.0); SODIUM 137.5 mmol/L (137-145)
[2016-10-29] MEDS: METHYLPREDNISOLONE INJ 40 MG/1 ML SDV IV SCH ×3 (05:14→21:20)
[2016-10-29 05:38] LABS: ARTERIAL BLOOD BASE EXCESS 1.2 mmol/L
--- NOTE | 2016-10-29 07:07 | RADIOLOGY REPORT (SQ) ---
EXAM DESCRIPTION: CHEST SINGLE VIEW COMPLETED DATE/TIME: 10/29/2016 6:54 am REASON FOR STUDY: resp failure COMPARISON: Chest x-ray 10/28/2016. EXAM PARAMETERS: NUMBER OF VIEWS: One view. TECHNIQUE: Single frontal radiographic view of the chest acquired. RADIATION DOSE: NA LIMITATIONS: None. FINDINGS: LUNGS AND PLEURA: Hyperlucent lungs, consistent with emphysema. Chronic scarring at the r ight lung base. Persistent airspace opacity in the left midlung. No pleural effusion or pneumothora x. MEDIASTINUM AND HILAR STRUCTURES: Prominent main pulmonary artery. HEART AND VASCULAR STRUCTURES: The heart is mildly enlarged. No overt vascular congestion. BONES: Degenerative changes in the spine. HARDWARE: None in the chest. IMPRESSION: Emphysema. Persistent airspace opacity in the left midlung. Mild cardiomegaly. Prominent main pulmonary artery, may be seen with pulmonary arterial hypertension . TECHNICAL DOCUMENTATION: JOB ID: [id number]
[2016-10-29] MEDS: LEVOTHYROXINE SODIUM 0.1 MG TABLET PO SCH (08:26)
[2016-10-29] MEDS: LEVOTHYROXINE SODIUM 0.05 MG TABLET PO SCH (08:26)
[2016-10-29] MEDS: ENOXAPARIN SODIUM INJ 30 MG/0.3 ML DISP.SYRIN SUBCUT SCH (08:26)
--- NOTE | 2016-10-29 10:21 | PDOC PROGRESS REPORT ---
Subjective Progress Note for:: 10/29/16 Subjective:: No chest pain. Remain on supplemental oxygen via nasal cannula. No fever or chills. No nausea, vomiting or abdominal pain. Tolerated diet consistency advance. Physical Exam Vital Signs: Temp Pulse Resp BP Pulse Ox 98.4 F 84 16 135/89 H 92 10/29/16 08:00 10/29/16 08:04 10/29/16 08:04 10/29/16 08:00 10/29/16 08:04 Intake & Output 10/28/16 10/29/16 10/30/16 06:59 06:59 06:59 Intake Total 4533 1877 Output Total 3220 3400 Balance 1313 -1523 Weight 75.1 kg 72.2 kg Physical Exam: General appearance: PRESENT: no acute distress, obese Head exam: PRESENT: atraumatic, normocephalic Eye exam: PRESENT: conjunctiva pink. ABSENT: conjunctiva pale, scleral icterus Mouth exam: PRESENT: moist Respiratory exam: PRESENT: clear to auscultation oh, decreased breath sounds Cardiovascular exam: PRESENT: RRR. ABSENT: diastolic murmur, rubs, systolic murmur GI/Abdominal exam: PRESENT: normal bowel sounds, soft. ABSENT: distended, guarding, mass, organomegaly, rebound, tenderness Extremities exam: ABSENT: pedal edema Musculoskeletal exam: PRESENT: normal inspection Neurological exam: PRESENT: alert, awake, oriented to person, oriented to place , oriented to time, oriented to situation, CN II-XII grossly intact. ABSENT: motor sensory deficit Psychiatric exam: PRESENT: appropriate affect, normal mood. ABSENT: homicidal ideation, suicidal ideation Skin exam: PRESENT: dry, intact, warm. ABSENT: cyanosis, rash Results Laboratory Results: 10/29/16 04:13 10/29/16 04:13 10/29/16 10/29/16 10/29/16 04:13 04:13 05:30 WBC 11.4 H RBC 4.62 Hgb 13.5 Hct 41.7 MCV 90 MCH 29.2 MCHC 32.4 RDW 16.0 H Plt Count 144 L Seg Neutrophils % 91.6 H Lymphocytes % 5.2 L Monocytes % 3.0 Eosinophils % 0.0 Basophils % 0.2 Absolute Neutrophils 10.4 H Absolute Lymphocytes 0.6 Absolute Monocytes 0.3 Absolute Eosinophils 0.0 Absolute Basophils 0.0 Carbonic Acid 1.32 HCO3/H2CO3 Ratio 20:1 ABG pH 7.40 ABG pCO2 43.8 ABG pO2 81.6 ABG HCO3 26.4 H ABG O2 Saturation 96.0 ABG Base Excess 1.2 FiO2 3 LITERS Sodium 137.5 Potassium 4.7 Chloride 102 Carbon Dioxide 29 Anion Gap 7 BUN 26 H Creatinine 0.73 Est GFR ( Amer) > 60 Est GFR (Non-Af Amer) > 60 Glucose 218 H Calcium 9.0 10/20/16 10/20/16 10/21/16 21:59 21:59 04:29 Creatine Kinase 22 L Cancelled CK-MB (CK-2) 1.90 Troponin I < 0.012 NT-Pro-B Natriuret Pep 10/21/16 10/21/16 10/21/16 04:29 05:20 11:25 Creatine Kinase < 20 L 28 L CK-MB (CK-2) 1.78 Troponin I < 0.012 NT-Pro-B Natriuret Pep 10/21/16 10/26/16 11:25 08:45 Creatine Kinase CK-MB (CK-2) 1.69 Troponin I 0.020 NT-Pro-B Natriuret Pep 295 Impressions: Chest X-Ray 10/29/16 06:00 IMPRESSION: Emphysema. Persistent airspace opacity in the left midlung. Mild cardiomegaly. Prominent main pulmonary artery, may be seen with pulmonary arterial hypertension. Assessment & Plan - Diagnosis (1) Acute exacerbation of chronic obstructive pulmonary disease (COPD) Is this a current diagnosis for this admission?: Yes (2) Acute hypercapnic respiratory failure Is this a current diagnosis for this admission?: Yes (3) Pneumonia Qualifiers: Pneumonia type: due to unspecified organism Laterality: left Lung location: lower lobe of lung Qualified Code(s): J18.1 - Lobar pneumonia, unspecified organism Is this a current diagnosis for this admission?: Yes (4) Hyperkalemia Is this a current diagnosis for this admission?: Yes (5) Type 2 diabetes mellitus Qualifiers: Diabetes mellitus complication status: without complication Diabetes mellitus fci insulin use: without termite renewal inspector use Qualified Code(s): E11.9 - Type 2 diabetes mellitus without complications Is this a current diagnosis for this admission?: Yes (6) Hypothyroidism Qualifiers: Hypothyroidism type: unspecified Qualified Code(s): E03.9 - Hypothyroidism , unspecified Is this a current diagnosis for this admission?: Yes - Time Time Spent with patient: 25-34 minutes Medications reviewed and adjusted accordingly: Yes Anticipated discharge: SNF - for short term rehabilitation. Within: Other - Inpatient Certification Based on my medical assessment, after consideration of the patient's comorbidities, presenting symptoms, or acuity I expect that the services needed warrant INPATIENT care.: Yes I certify that my determination is in accordance with my understanding of Medicare's requirements for reasonable and necessary INPATIENT services [42 CFR 412.3e].: Yes Medical Necessity: Need Close Monitoring Due to Risk of Patient Decompensation, Need For IV Fluids, Need for Nebulizer Therapy and Monitoring of Response, Need for IV Antibiotics, Risk of Complication if Not Cared For in Hospital Post Hospital Care: D/C or Transfer Summary - Plan Summary Plan Summary: See covering attending physician orders.
[2016-10-29] MEDS: SULFAMETHOXAZOLE/TRIMETHOPRIM 800-160 MG TABLET PO SCH ×2 (10:26→17:40)
[2016-10-29] MEDS: FAMOTIDINE INJ/PF 20 MG/2 ML SDV IV SCH (10:46)
[2016-10-29] MEDS: NORMAL SALINE 1000 ML 1,000 ML IV PRN (13:23)
[2016-10-29] MEDS: FAMOTIDINE 20 MG TABLET PO SCH (21:20)
[2016-10-29] MEDS: INSULIN LISPRO 100 UNIT/ML 3 ML VIAL SUBCUT PRN (21:33)
[2016-10-30] MEDS: IPRATROPIUM/ALBUTEROL 0.5-2.5 MG/3 ML AMPUL NEB SCH ×4 (02:53→19:58)
[2016-10-30] MEDS: METHYLPREDNISOLONE INJ 40 MG/1 ML SDV IV SCH ×3 (05:07→22:22)
[2016-10-30 05:50] LABS: ABSOLUTE BASOPHILS # (AUTO) 0.1 10^3/uL (0.0-0.2); ABSOLUTE LYMPHOCYTES (AUTO) 0.8 10^3/uL (0.5-4.7); ABSOLUTE MONOCYTES (AUTO) 0.7 10^3/uL (0.1-1.4); ABSOLUTE NEUT (AUTO) 10.5 10^3/uL (1.7-8.2); BASOPHILS % (AUTO) 0.5 % (0-2); HEMOGLOBIN 15.4 g/dL (12.0-15.5); HGB HCT DIFFERENCE -0.8; LYMPHOCYTES % (AUTO) 6.7 % (13-45); MEAN CORPUSCULAR HEMOGLOBIN 29.2 pg (27.0-33.4); MEAN CORPUSCULAR HGB CONC 32.7 g/dL (32.0-36.0); MEAN CORPUSCULAR VOLUME 89 fl (80-97); MONOCYTES % (AUTO) 5.6 % (3-13); RED BLOOD COUNT 5.27 10^6/uL (3.72-5.28); RED CELL DISTRIBUTION WIDTH 16.1 % (11.5-14.0); SEGMENTED NEUTROPHILS % (AUTO) 87.2 % (42-78); WHITE BLOOD COUNT 12.1 10^3/uL (4.0-10.5)
[2016-10-30 06:04] LABS: ANION GAP 12 (5-19); BLOOD UREA NITROGEN 24 mg/dL (7-20); CALCIUM 9.8 mg/dL (8.4-10.2); CARBON DIOXIDE 28 mmol/L (22-30); CHLORIDE 100 mmol/L (98-107); CREATININE RESULT 0.69 mg/dL (0.52-1.25); GLUCOSE 181 mg/dL (75-110); MAGNESIUM 1.9 mg/dL (1.6-2.3); POTASSIUM 4.8 mmol/L (3.6-5.0); SODIUM 139.7 mmol/L (137-145)
--- NOTE | 2016-10-30 07:33 | RADIOLOGY REPORT (SQ) ---
EXAM DESCRIPTION: CHEST SINGLE VIEW COMPLETED DATE/TIME: 10/30/2016 6:58 am REASON FOR STUDY: resp failure COMPARISON: 10/29/2016. EXAM PARAMETERS: NUMBER OF VIEWS: One view. TECHNIQUE: Single frontal radiographic view of the chest acquired. RADIATION DOSE: NA LIMITATIONS: None. FINDINGS: LUNGS AND PLEURA: [id number] mixed interstitial and airspace opacities with left low er lobar predominance. MEDIASTINUM AND HILAR STRUCTURES: No masses. Contour normal. HEART AND VASCULAR STRUCTURES: Moderate enlargement of the cardiac silhouette. BONES: No acute findings. HARDWARE: None in the chest. OTHER: No other significant finding. IMPRESSION: No significant interval change. TECHNICAL DOCUMENTATION: JOB ID: [id number]
[2016-10-30] MEDS: LEVOTHYROXINE SODIUM 0.1 MG TABLET PO SCH (08:11)
[2016-10-30] MEDS: LEVOTHYROXINE SODIUM 0.05 MG TABLET PO SCH (08:11)
[2016-10-30] MEDS: ENOXAPARIN SODIUM INJ 30 MG/0.3 ML DISP.SYRIN SUBCUT SCH (08:12)
[2016-10-30] MEDS: INSULIN LISPRO 100 UNIT/ML 3 ML VIAL SUBCUT PRN (08:12)
[2016-10-30] MEDS: FAMOTIDINE 20 MG TABLET PO SCH ×2 (09:22→22:23)
[2016-10-30] MEDS: SULFAMETHOXAZOLE/TRIMETHOPRIM 800-160 MG TABLET PO SCH ×2 (09:23→17:20)
--- NOTE | 2016-10-30 13:38 | PDOC PROGRESS REPORT ---
Subjective Progress Note for:: 10/29/16 Subjective:: Pleasantly confused Physical Exam Vital Signs: Temp Pulse Resp BP Pulse Ox 98.4 F 84 16 135/89 H 92 10/29/16 08:00 10/29/16 08:04 10/29/16 08:04 10/29/16 08:00 10/29/16 08:04 Intake & Output 10/28/16 10/29/16 10/30/16 06:59 06:59 06:59 Intake Total 4533 1877 Output Total 3226 9870 Balance 1313 -1523 Weight 75.1 kg 72.2 kg General appearance: PRESENT: no acute distress, cooperative, disheveled, obese, well-developed Head exam: PRESENT: atraumatic, normocephalic Eye exam: PRESENT: conjunctiva pale, EOMI Mouth exam: PRESENT: dry mucosa, neck supple, tongue midline Neck exam: ABSENT: carotid bruit, JVD, lymphadenopathy, thyromegaly Respiratory exam: PRESENT: decreased breath sounds, prolonged expiratory phas, rhonchi, symmetrical, unlabored. ABSENT: retraction, stridor, tachypnea Cardiovascular exam: PRESENT: RRR, +S1, +S2 Pulses: PRESENT: normal radial pulses GI/Abdominal exam: PRESENT: normal bowel sounds, soft. ABSENT: distended, guarding, mass, organolmegaly, rebound, tenderness Rectal exam: PRESENT: deferred Musculoskeletal exam: PRESENT: normal inspection Neurological exam: PRESENT: awake, oriented to person, oriented to place. ABSENT: oriented to time, oriented to situation Psychiatric exam: PRESENT: flat affect Skin exam: PRESENT: dry, warm Results Laboratory Results: 10/29/16 04:13 10/29/16 04:13 10/29/16 10/29/16 10/29/16 04:13 04:13 05:30 WBC 11.4 H RBC 4.62 Hgb 13.5 Hct 41.7 MCV 90 MCH 29.2 MCHC 32.4 RDW 16.0 H Plt Count 144 L Seg Neutrophils % 91.6 H Lymphocytes % 5.2 L Monocytes % 3.0 Eosinophils % 0.0 Basophils % 0.2 Absolute Neutrophils 10.4 H Absolute Lymphocytes 0.6 Absolute Monocytes 0.3 Absolute Eosinophils 0.0 Absolute Basophils 0.0 Carbonic Acid 1.32 HCO3/H2CO3 Ratio 20:1 ABG pH 7.40 ABG pCO2 43.8 ABG pO2 81.6 ABG HCO3 26.4 H ABG O2 Saturation 96.0 ABG Base Excess 1.2 FiO2 3 LITERS Sodium 137.5 Potassium 4.7 Chloride 102 Carbon Dioxide 29 Anion Gap 7 BUN 26 H Creatinine 0.73 Est GFR ( Amer) > 60 Est GFR (Non-Af Amer) > 60 Glucose 218 H Calcium 9.0 10/20/16 10/20/16 10/21/16 21:59 21:59 04:29 Creatine Kinase 22 L Cancelled CK-MB (CK-2) 1.90 Troponin I < 0.012 NT-Pro-B Natriuret Pep 10/21/16 10/21/16 10/21/16 04:29 05:20 11:25 Creatine Kinase < 20 L 28 L CK-MB (CK-2) 1.78 Troponin I < 0.012 NT-Pro-B Natriuret Pep 10/21/16 10/26/16 11:25 08:45 Creatine Kinase CK-MB (CK-2) 1.69 Troponin I 0.020 NT-Pro-B Natriuret Pep 295 Impressions: Chest X-Ray 10/29/16 06:00 IMPRESSION: Emphysema. Persistent airspace opacity in the left midlung. Mild cardiomegaly. Prominent main pulmonary artery, may be seen with pulmonary arterial hypertension. Assessment & Plan - Diagnosis (1) Acute exacerbation of chronic obstructive pulmonary disease (COPD) Is this a current diagnosis for this admission?: Yes (2) Acute hypercapnic respiratory failure Is this a current diagnosis for this admission?: Yes (3) Pneumonia Qualifiers: Pneumonia type: due to unspecified organism Laterality: left Lung location: lower lobe of lung Qualified Code(s): J18.1 - Lobar pneumonia, unspecified organism Is this a current diagnosis for this admission?: Yes
--- NOTE | 2016-10-30 13:40 | PDOC PROGRESS REPORT ---
Subjective Progress Note for:: 10/30/16 Subjective:: Remains confused but not agitated Physical Exam Vital Signs: Temp Pulse Resp BP Pulse Ox 98.2 F 66 16 124/51 L 95 10/30/16 03:46 10/30/16 07:46 10/30/16 07:46 10/30/16 07:24 10/30/16 07:46 Intake & Output 10/29/16 10/30/16 10/31/16 06:59 06:59 06:59 Intake Total 1877 9078 Output Total 3401 6080 Balance -1523 -1752 Weight 72.2 kg 72.8 kg General appearance: PRESENT: no acute distress, cooperative, disheveled, obese Head exam: PRESENT: atraumatic, normocephalic Eye exam: PRESENT: conjunctiva pale, EOMI Mouth exam: PRESENT: dry mucosa, neck supple, tongue midline Neck exam: ABSENT: carotid bruit, JVD, lymphadenopathy, thyromegaly Respiratory exam: PRESENT: decreased breath sounds, prolonged expiratory phas, rhonchi, symmetrical. ABSENT: rales, retraction, stridor, tachypnea, unlabored Cardiovascular exam: PRESENT: RRR, +S1, +S2 Pulses: PRESENT: normal radial pulses GI/Abdominal exam: PRESENT: normal bowel sounds, soft. ABSENT: distended, guarding, mass, organolmegaly, rebound, tenderness Rectal exam: PRESENT: deferred Gentrourinary exam: PRESENT: indwelling catheter Extremities exam: PRESENT: +1 edema Neurological exam: PRESENT: awake Skin exam: PRESENT: dry, warm Results Laboratory Results: 10/30/16 05:40 10/30/16 05:40 10/30/16 10/30/16 05:40 05:40 WBC 12.1 H RBC 5.27 Hgb 15.4 Hct 47.0 MCV 89 MCH 29.2 MCHC 32.7 RDW 16.1 H Plt Count 147 L Seg Neutrophils % 87.2 H Lymphocytes % 6.7 L Monocytes % 5.6 Eosinophils % 0.0 Basophils % 0.5 Absolute Neutrophils 10.5 H Absolute Lymphocytes 0.8 Absolute Monocytes 0.7 Absolute Eosinophils 0.0 Absolute Basophils 0.1 Sodium 139.7 Potassium 4.8 Chloride 100 Carbon Dioxide 28 Anion Gap 12 BUN 24 H Creatinine 0.69 Est GFR ( Amer) > 60 Est GFR (Non-Af Amer) > 60 Glucose 181 H Calcium 9.8 Magnesium 1.9 10/20/16 10/20/16 10/21/16 21:59 21:59 04:29 Creatine Kinase 22 L Cancelled CK-MB (CK-2) 1.90 Troponin I < 0.012 NT-Pro-B Natriuret Pep 10/21/16 10/21/16 10/21/16 04:29 05:20 11:25 Creatine Kinase < 20 L 28 L CK-MB (CK-2) 1.78 Troponin I < 0.012 NT-Pro-B Natriuret Pep 10/21/16 10/26/16 11:25 08:45 Creatine Kinase CK-MB (CK-2) 1.69 Troponin I 0.020 NT-Pro-B Natriuret Pep 295 Impressions: Chest X-Ray 10/30/16 06:00 IMPRESSION: No significant interval change. Assessment & Plan - Diagnosis (1) Acute exacerbation of chronic obstructive pulmonary disease (COPD) Is this a current diagnosis for this admission?: Yes Plan: discussed with RN reviewed chart will reinnitiate lovenox (2) Acute hypercapnic respiratory failure Is this a current diagnosis for this admission?: Yes (3) Pneumonia Qualifiers: Pneumonia type: due to unspecified organism Laterality: left Lung location: lower lobe of lung Qualified Code(s): J18.1 - Lobar pneumonia, unspecified organism Is this a current diagnosis for this admission?: Yes
--- NOTE | 2016-10-30 21:24 | PDOC PROGRESS REPORT ---
Subjective Progress Note for:: 10/30/16 Subjective:: Patient was seen by the bedside, she is confused some time but she recognizes me today, she is presently on telemetry bed she was downgraded from ICU. She is still on low dose Solu-Medrol, she will need to be transfer to [facility] for [facility], she is still very deconditioned. The IV fluids be discontinued, consultation from discharge planning will be ordered to arrange for [facility] placement for rehab. Physical Exam Vital Signs: Temp Pulse Resp BP Pulse Ox 98.0 F 106 H 19 104/54 L 90 L 10/30/16 19:08 10/30/16 19:08 10/30/16 19:08 10/30/16 19:08 10/30/16 19:08 Intake & Output 10/29/16 10/30/16 10/31/16 06:59 06:59 06:59 Intake Total 1877 1948 537 Output Total 3400 3700 700 Balance -3763 -3480 -163 Weight 72.2 kg 72.8 kg General appearance: PRESENT: no acute distress Eye exam: PRESENT: PERRLA Respiratory exam: PRESENT: clear to auscultation oh Cardiovascular exam: PRESENT: +S1, +S2 Neurological exam: PRESENT: alert, CN II-XII grossly intact Results Laboratory Results: 10/30/16 05:40 10/30/16 05:40 10/30/16 10/30/16 05:40 05:40 WBC 12.1 H RBC 5.27 Hgb 15.4 Hct 47.0 MCV 89 MCH 29.2 MCHC 32.7 RDW 16.1 H Plt Count 147 L Seg Neutrophils % 87.2 H Lymphocytes % 6.7 L Monocytes % 5.6 Eosinophils % 0.0 Basophils % 0.5 Absolute Neutrophils 10.5 H Absolute Lymphocytes 0.8 Absolute Monocytes 0.7 Absolute Eosinophils 0.0 Absolute Basophils 0.1 Sodium 139.7 Potassium 4.8 Chloride 100 Carbon Dioxide 28 Anion Gap 12 BUN 24 H Creatinine 0.69 Est GFR ( Amer) > 60 Est GFR (Non-Af Amer) > 60 Glucose 181 H Calcium 9.8 Magnesium 1.9 10/20/16 10/20/16 10/21/16 21:59 21:59 04:29 Creatine Kinase 22 L Cancelled CK-MB (CK-2) 1.90 Troponin I < 0.012 NT-Pro-B Natriuret Pep 10/21/16 10/21/16 10/21/16 04:29 05:20 11:25 Creatine Kinase < 20 L 28 L CK-MB (CK-2) 1.78 Troponin I < 0.012 NT-Pro-B Natriuret Pep 10/21/16 10/26/16 11:25 08:45 Creatine Kinase CK-MB (CK-2) 1.69 Troponin I 0.020 NT-Pro-B Natriuret Pep 295 Impressions: Chest X-Ray 10/30/16 06:00 IMPRESSION: No significant interval change. Assessment & Plan - Diagnosis (1) Acute hypercapnic respiratory failure Is this a current diagnosis for this admission?: Yes (2) Acute exacerbation of chronic obstructive pulmonary disease (COPD) Is this a current diagnosis for this admission?: Yes (3) Hyperkalemia Is this a current diagnosis for this admission?: Yes (4) Hypotension Qualifiers: Hypotension type: unspecified hypotension type Qualified Code(s): I95.9 - Hypotension, unspecified Is this a current diagnosis for this admission?: Yes (5) Hypothyroidism Qualifiers: Hypothyroidism type: unspecified Qualified Code(s): E03.9 - Hypothyroidism , unspecified Is this a current diagnosis for this admission?: Yes (6) Type 2 diabetes mellitus Qualifiers: Diabetes mellitus complication status: without complication Diabetes mellitus terminal worker insulin use: without custodial use Qualified Code(s): E11.9 - Type 2 diabetes mellitus without complications Is this a current diagnosis for this admission?: Yes - Plan Summary Plan Summary: Discontinue IV fluids, continue Solu-Medrol at the present dose, obtain consultation from discharge planning to make arrangements for [facility] placement for rehabilitation
[2016-10-31] MEDS: INSULIN LISPRO 100 UNIT/ML 3 ML VIAL SUBCUT PRN ×2 (00:34→13:21)
[2016-10-31] MEDS: IPRATROPIUM/ALBUTEROL 0.5-2.5 MG/3 ML AMPUL NEB SCH ×4 (02:29→19:39)
[2016-10-31] MEDS: METHYLPREDNISOLONE INJ 40 MG/1 ML SDV IV SCH ×3 (05:45→23:57)
[2016-10-31] MEDS: LEVOTHYROXINE SODIUM 0.1 MG TABLET PO SCH (08:00)
[2016-10-31] MEDS: LEVOTHYROXINE SODIUM 0.05 MG TABLET PO SCH (08:00)
[2016-10-31] MEDS: ENOXAPARIN SODIUM INJ 30 MG/0.3 ML DISP.SYRIN SUBCUT SCH (08:00)
--- NOTE | 2016-10-31 08:12 | RADIOLOGY REPORT (SQ) ---
EXAM DESCRIPTION: CHEST SINGLE VIEW COMPLETED DATE/TIME: 10/31/2016 7:43 am REASON FOR STUDY: resp failure COMPARISON: 10/30/2016. EXAM PARAMETERS: NUMBER OF VIEWS: One view. TECHNIQUE: Single frontal radiographic view of the chest acquired. RADIATION DOSE: NA LIMITATIONS: None. FINDINGS: LUNGS AND PLEURA: Diffuse interstitial prominence. Linear density in the left lung. No p leural effusion. No pneumothorax. MEDIASTINUM AND HILAR STRUCTURES: No masses. Contour normal. HEART AND VASCULAR STRUCTURES: Heart upper limits of normal in size. Normal vasculature. BONES: No acute findings. Degenerative changes in the spine. HARDWARE: None in the chest. OTHER: No other significant finding. IMPRESSION: NO SIGNIFICANT CHANGE IN APPEARANCE OF THE CHEST. TECHNICAL DOCUMENTATION: JOB ID: [id number]
[2016-10-31] MEDS: SULFAMETHOXAZOLE/TRIMETHOPRIM 800-160 MG TABLET PO SCH ×2 (10:53→17:50)
[2016-10-31] MEDS: FAMOTIDINE 20 MG TABLET PO SCH ×2 (10:53→23:58)
--- NOTE | 2016-10-31 11:06 | PDOC PROGRESS REPORT ---
Subjective Progress Note for:: 10/31/16 Subjective:: pleasant but confused Physical Exam Vital Signs: Temp Pulse Resp BP Pulse Ox 98.5 F 62 16 137/59 H 96 10/31/16 07:10 10/31/16 07:37 10/31/16 07:37 10/31/16 07:10 10/31/16 07:37 Intake & Output 10/30/16 10/31/16 11/01/16 06:59 06:59 06:59 Intake Total 1948 1037 Output Total 3700 4234 Balance -1752 -1463 Weight 72.8 kg 72.8 kg General appearance: PRESENT: no acute distress, cooperative, disheveled, obese, well-developed Head exam: PRESENT: atraumatic, normocephalic Eye exam: PRESENT: conjunctiva pale, EOMI Mouth exam: PRESENT: dry mucosa, neck supple, tongue midline Neck exam: ABSENT: carotid bruit, JVD, lymphadenopathy, thyromegaly Respiratory exam: PRESENT: decreased breath sounds, prolonged expiratory phas, rhonchi, symmetrical, unlabored. ABSENT: rales, retraction, stridor, tachypnea , wheezes Cardiovascular exam: PRESENT: RRR, +S1, +S2 Pulses: PRESENT: normal radial pulses GI/Abdominal exam: PRESENT: normal bowel sounds, soft. ABSENT: distended, guarding, mass, organolmegaly, rebound, tenderness Rectal exam: PRESENT: deferred Extremities exam: PRESENT: +1 edema Neurological exam: PRESENT: awake Psychiatric exam: PRESENT: flat affect Skin exam: PRESENT: dry, warm Results Laboratory Results: 10/30/16 05:40 10/30/16 05:40 10/20/16 10/20/16 10/21/16 21:59 21:59 04:29 Creatine Kinase 22 L Cancelled CK-MB (CK-2) 1.90 Troponin I < 0.012 NT-Pro-B Natriuret Pep 10/21/16 10/21/16 10/21/16 04:29 05:20 11:25 Creatine Kinase < 20 L 28 L CK-MB (CK-2) 1.78 Troponin I < 0.012 NT-Pro-B Natriuret Pep 10/21/16 10/26/16 11:25 08:45 Creatine Kinase CK-MB (CK-2) 1.69 Troponin I 0.020 NT-Pro-B Natriuret Pep 295 Impressions: Chest X-Ray 10/31/16 06:00 IMPRESSION: NO SIGNIFICANT CHANGE IN APPEARANCE OF THE CHEST. Assessment & Plan - Diagnosis (1) Acute exacerbation of chronic obstructive pulmonary disease (COPD) Is this a current diagnosis for this admission?: Yes Plan: Stable at this time (2) Acute hypercapnic respiratory failure Is this a current diagnosis for this admission?: No (3) Pneumonia Qualifiers: Pneumonia type: due to unspecified organism Laterality: left Lung location: lower lobe of lung Qualified Code(s): J18.1 - Lobar pneumonia, unspecified organism Is this a current diagnosis for this admission?: Yes Plan: Elevated WBC no positive cultures no fever
--- NOTE | 2016-10-31 20:42 | PDOC PROGRESS REPORT ---
Subjective Progress Note for:: 10/31/16 Subjective:: Patient was seen by the bedside, she continues to be confused every now and then awaiting placement for rehab Physical Exam Vital Signs: Temp Pulse Resp BP Pulse Ox 98.8 F 74 17 135/69 H 94 10/31/16 15:47 10/31/16 15:47 10/31/16 15:47 10/31/16 15:47 10/31/16 15:47 Intake & Output 10/30/16 10/31/16 11/01/16 06:59 06:59 06:59 Intake Total 1948 1037 1810 Output Total 3700 2500 600 Balance -2686 -4093 1210 Weight 72.8 kg 72.8 kg General appearance: PRESENT: mild distress Eye exam: PRESENT: PERRLA Respiratory exam: PRESENT: rhonchi Cardiovascular exam: PRESENT: +S1, +S2 GI/Abdominal exam: PRESENT: soft Neurological exam: PRESENT: alert Results Laboratory Results: 10/30/16 05:40 10/30/16 05:40 10/20/16 10/20/16 10/21/16 21:59 21:59 04:29 Creatine Kinase 22 L Cancelled CK-MB (CK-2) 1.90 Troponin I < 0.012 NT-Pro-B Natriuret Pep 10/21/16 10/21/16 10/21/16 04:29 05:20 11:25 Creatine Kinase < 20 L 28 L CK-MB (CK-2) 1.78 Troponin I < 0.012 NT-Pro-B Natriuret Pep 10/21/16 10/26/16 11:25 08:45 Creatine Kinase CK-MB (CK-2) 1.69 Troponin I 0.020 NT-Pro-B Natriuret Pep 295 Impressions: Chest X-Ray 10/31/16 06:00 IMPRESSION: NO SIGNIFICANT CHANGE IN APPEARANCE OF THE CHEST. Assessment & Plan - Diagnosis (1) Acute hypercapnic respiratory failure Is this a current diagnosis for this admission?: No (2) Acute exacerbation of chronic obstructive pulmonary disease (COPD) Is this a current diagnosis for this admission?: Yes (3) Hyperkalemia Is this a current diagnosis for this admission?: Yes (4) Hypotension Qualifiers: Hypotension type: unspecified hypotension type Qualified Code(s): I95.9 - Hypotension, unspecified Is this a current diagnosis for this admission?: Yes (5) Hypothyroidism Qualifiers: Hypothyroidism type: unspecified Qualified Code(s): E03.9 - Hypothyroidism , unspecified Is this a current diagnosis for this admission?: Yes (6) Type 2 diabetes mellitus Qualifiers: Diabetes mellitus complication status: without complication Diabetes mellitus residential insulin use: without senior network systems engineer use Qualified Code(s): E11.9 - Type 2 diabetes mellitus without complications Is this a current diagnosis for this admission?: Yes
[2016-11-01] MEDS: IPRATROPIUM/ALBUTEROL 0.5-2.5 MG/3 ML AMPUL NEB SCH ×4 (03:12→19:36)
[2016-11-01] MEDS: METHYLPREDNISOLONE INJ 40 MG/1 ML SDV IV SCH (06:50)
[2016-11-01] MEDS: LEVOTHYROXINE SODIUM 0.1 MG TABLET PO SCH (08:29)
[2016-11-01] MEDS: ENOXAPARIN SODIUM INJ 30 MG/0.3 ML DISP.SYRIN SUBCUT SCH (08:29)
[2016-11-01] MEDS: LEVOTHYROXINE SODIUM 0.05 MG TABLET PO SCH (08:29)
[2016-11-01] MEDS: FAMOTIDINE 20 MG TABLET PO SCH ×2 (09:39→22:02)
[2016-11-01] MEDS: SULFAMETHOXAZOLE/TRIMETHOPRIM 800-160 MG TABLET PO SCH ×2 (09:39→17:44)
--- NOTE | 2016-11-01 10:10 | RADIOLOGY REPORT (SQ) ---
EXAM DESCRIPTION: CHEST SINGLE VIEW COMPLETED DATE/TIME: 11/01/2016 9:41 am REASON FOR STUDY: resp failure COMPARISON: CT chest 10/11/2015 Chest films 10/09/2015, 10/20/2016, 10/23/2016, 10/28/2016, 10/29/2016, 10/30/2016, 10/31/2016 EXAM PARAMETERS: NUMBER OF VIEWS: One view. TECHNIQUE: Single frontal radiographic view of the chest acquired. RADIATION DOSE: NA LIMITATIONS: None. FINDINGS: LUNGS AND PLEURA: Mild increased interstitial markings along the right and left lateral co stophrenic sulci, interstitial edema versus interstitial fibrosis. This is similar compared to the p revious exams. No pleural effusions. No pneumothorax. No dense consolidation worrisome for pneumonia. MEDIASTINUM AND HILAR STRUCTURES: Stable moderate cardiomegalyNo masses. Contour normal. HEART AND VASCULAR STRUCTURES: Stable moderate cardiomegaly BONES: No acute findings. HARDWARE: None in the chest. OTHER: No other significant finding. IMPRESSION: Cardiomegaly with increased interstitial markings at both bases, mild interstitial edema versus mild pulmonary fibrosis. This pattern is similar compared to previous exams TECHNICAL DOCUMENTATION: JOB ID: [id number]
--- NOTE | 2016-11-01 18:48 | PDOC PROGRESS REPORT ---
Subjective Progress Note for:: 11/01/16 Subjective:: Patient was seen by the bedside, she needed to go to [facility] for [facility], awaiting a bed Physical Exam Vital Signs: Temp Pulse Resp BP Pulse Ox 98.1 F 111 H 18 106/58 L 98 11/01/16 15:56 11/01/16 15:56 11/01/16 15:56 11/01/16 15:56 11/01/16 16:02 Intake & Output 10/31/16 11/01/16 11/02/16 06:59 06:59 06:59 Intake Total 1037 2395 1080 Output Total 2500 1280 750 Balance -1463 1115 330 Weight 72.8 kg 73.1 kg General appearance: PRESENT: no acute distress Eye exam: PRESENT: PERRLA Respiratory exam: PRESENT: crackles Cardiovascular exam: PRESENT: +S1, +S2 GI/Abdominal exam: PRESENT: soft Neurological exam: PRESENT: alert Results Laboratory Results: 10/30/16 05:40 10/30/16 05:40 10/20/16 10/20/16 10/21/16 21:59 21:59 04:29 Creatine Kinase 22 L Cancelled CK-MB (CK-2) 1.90 Troponin I < 0.012 NT-Pro-B Natriuret Pep 10/21/16 10/21/16 10/21/16 04:29 05:20 11:25 Creatine Kinase < 20 L 28 L CK-MB (CK-2) 1.78 Troponin I < 0.012 NT-Pro-B Natriuret Pep 10/21/16 10/26/16 11:25 08:45 Creatine Kinase CK-MB (CK-2) 1.69 Troponin I 0.020 NT-Pro-B Natriuret Pep 295 Impressions: Chest X-Ray 11/01/16 06:00 IMPRESSION: Cardiomegaly with increased interstitial markings at both bases, mild interstitial edema versus mild pulmonary fibrosis. This pattern is similar compared to previous exams Assessment & Plan - Diagnosis (1) Acute hypercapnic respiratory failure Is this a current diagnosis for this admission?: No (2) Acute exacerbation of chronic obstructive pulmonary disease (COPD) Is this a current diagnosis for this admission?: Yes (3) Hyperkalemia Is this a current diagnosis for this admission?: Yes (4) Hypotension Qualifiers: Hypotension type: unspecified hypotension type Qualified Code(s): I95.9 - Hypotension, unspecified Is this a current diagnosis for this admission?: Yes (5) Hypothyroidism Qualifiers: Hypothyroidism type: unspecified Qualified Code(s): E03.9 - Hypothyroidism , unspecified Is this a current diagnosis for this admission?: Yes (6) Type 2 diabetes mellitus Qualifiers: Diabetes mellitus complication status: without complication 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
[2016-11-02] MEDS: IPRATROPIUM/ALBUTEROL 0.5-2.5 MG/3 ML AMPUL NEB SCH ×4 (02:09→21:12)
--- NOTE | 2016-11-02 09:10 | RADIOLOGY REPORT (SQ) ---
EXAM DESCRIPTION: CHEST SINGLE VIEW COMPLETED DATE/TIME: 11/02/2016 9:03 am REASON FOR STUDY: resp failure COMPARISON: 11/01/2016 NUMBER OF VIEWS: One view. TECHNIQUE: Single frontal radiographic image of the chest acquired. LIMITATIONS: None. FINDINGS: LUNGS AND PLEURA: Stable appearance. MEDIASTINUM AND HILAR STRUCTURES: Stable heart size and mediastinal structures. HEART AND VASCULAR STRUCTURES: Stable appearance. BONES: No acute findings. HARDWARE: None in the chest. OTHER: No other significant finding. IMPRESSION: STABLE APPEARANCE OF THE CHEST. TECHNICAL DOCUMENTATION: JOB ID: [id number] [employer]- All Rights Reserved
[2016-11-02] MEDS: PREDNISONE 20 MG TABLET PO SCH (09:30)
[2016-11-02] MEDS: SULFAMETHOXAZOLE/TRIMETHOPRIM 800-160 MG TABLET PO SCH ×2 (09:30→18:06)
[2016-11-02] MEDS: LEVOTHYROXINE SODIUM 0.05 MG TABLET PO SCH (09:30)
[2016-11-02] MEDS: LEVOTHYROXINE SODIUM 0.1 MG TABLET PO SCH (09:30)
[2016-11-02] MEDS: ENOXAPARIN SODIUM INJ 30 MG/0.3 ML DISP.SYRIN SUBCUT SCH (09:30)
[2016-11-02] MEDS: FAMOTIDINE 20 MG TABLET PO SCH ×2 (09:31→21:31)
[2016-11-02] MEDS: INSULIN LISPRO 100 UNIT/ML 3 ML VIAL SUBCUT PRN (16:21)
--- NOTE | 2016-11-02 21:05 | PDOC PROGRESS REPORT ---
Subjective Progress Note for:: 11/02/16 Subjective:: Patient is seen by the bedside she is alert confused sometimes awaiting bed placement for rehabilitation in the [facility] Physical Exam Vital Signs: Temp Pulse Resp BP Pulse Ox 97.5 F 63 17 103/45 L 98 11/02/16 19:18 11/02/16 19:18 11/02/16 19:18 11/02/16 19:18 11/02/16 19:18 Intake & Output 11/01/16 11/02/16 11/03/16 06:59 06:59 06:59 Intake Total 2395 1750 1260 Output Total 1280 750 200 Balance 1115 1000 1060 Weight 73.1 kg 72.2 kg General appearance: PRESENT: no acute distress Eye exam: PRESENT: PERRLA Respiratory exam: PRESENT: rhonchi Cardiovascular exam: PRESENT: +S1, +S2 GI/Abdominal exam: PRESENT: soft Neurological exam: PRESENT: alert Results Laboratory Results: 10/30/16 05:40 10/30/16 05:40 10/20/16 10/20/16 10/21/16 21:59 21:59 04:29 Creatine Kinase 22 L Cancelled CK-MB (CK-2) 1.90 Troponin I < 0.012 NT-Pro-B Natriuret Pep 10/21/16 10/21/16 10/21/16 04:29 05:20 11:25 Creatine Kinase < 20 L 28 L CK-MB (CK-2) 1.78 Troponin I < 0.012 NT-Pro-B Natriuret Pep 10/21/16 10/26/16 11:25 08:45 Creatine Kinase CK-MB (CK-2) 1.69 Troponin I 0.020 NT-Pro-B Natriuret Pep 295 Impressions: Chest X-Ray 11/02/16 06:00 IMPRESSION: STABLE APPEARANCE OF THE CHEST. Assessment & Plan - Diagnosis (1) Acute hypercapnic respiratory failure Is this a current diagnosis for this admission?: Yes (2) Acute exacerbation of chronic obstructive pulmonary disease (COPD) Is this a current diagnosis for this admission?: Yes (3) Hyperkalemia Is this a current diagnosis for this admission?: Yes (4) Hypotension Qualifiers: Hypotension type: unspecified hypotension type Qualified Code(s): I95.9 - Hypotension, unspecified Is this a current diagnosis for this admission?: Yes (5) Hypothyroidism Qualifiers: Hypothyroidism type: unspecified Qualified Code(s): E03.9 - Hypothyroidism , unspecified Is this a current diagnosis for this admission?: Yes (6) Type 2 diabetes mellitus Qualifiers: Diabetes mellitus complication status: without complication Diabetes mellitus 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
[2016-11-03] MEDS: IPRATROPIUM/ALBUTEROL 0.5-2.5 MG/3 ML AMPUL NEB SCH ×4 (01:58→19:57)
--- NOTE | 2016-11-03 09:03 | RADIOLOGY REPORT (SQ) ---
EXAM DESCRIPTION: CHEST SINGLE VIEW COMPLETED DATE/TIME: 11/03/2016 8:18 am REASON FOR STUDY: resp failure COMPARISON: Chest films 04/06/2010, 10/30/2016, 10/31/2016, 11/01/2016, 11/02/2016 CT chest 10/11/2015 EXAM PARAMETERS: NUMBER OF VIEWS: One view. TECHNIQUE: Single frontal radiographic view of the chest acquired. RADIATION DOSE: NA LIMITATIONS: None. FINDINGS: LUNGS AND PLEURA: No fluffy alveolar infiltrates worrisome for edema or pneumonia. There is lung parenchymal chronic consolidation in the medial upper lobe, and chronic bandlike consol idation in the lingula, stable. No pleural effusion. No pneumothorax. MEDIASTINUM AND HILAR STRUCTURES: No masses. Contour normal. HEART AND VASCULAR STRUCTURES: Heart normal in size. Normal vasculature. BONES: No acute findings. HARDWARE: None in the chest. OTHER: No other significant finding. IMPRESSION: Baseline appearance of the chest TECHNICAL DOCUMENTATION: JOB ID: [id number]
[2016-11-03] MEDS: FAMOTIDINE 20 MG TABLET PO SCH ×2 (09:30→22:36)
[2016-11-03] MEDS: LEVOTHYROXINE SODIUM 0.1 MG TABLET PO SCH (09:30)
[2016-11-03] MEDS: PREDNISONE 20 MG TABLET PO SCH (09:30)
[2016-11-03] MEDS: ENOXAPARIN SODIUM INJ 30 MG/0.3 ML DISP.SYRIN SUBCUT SCH (09:31)
[2016-11-03] MEDS: LEVOTHYROXINE SODIUM 0.05 MG TABLET PO SCH (09:31)
[2016-11-03] MEDS: INSULIN LISPRO 100 UNIT/ML 3 ML VIAL SUBCUT PRN (11:10)
[2016-11-04] MEDS: IPRATROPIUM/ALBUTEROL 0.5-2.5 MG/3 ML AMPUL NEB SCH ×4 (01:24→20:02)
--- NOTE | 2016-11-04 08:46 | RADIOLOGY REPORT (SQ) ---
EXAM DESCRIPTION: CHEST SINGLE VIEW COMPLETED DATE/TIME: 11/04/2016 8:26 am REASON FOR STUDY: resp failure COMPARISON: Chest films 04/06/2010, 10/09/2015 10/28/2016, 11/01/2016, 11/02/2016, 11/03/2016 CT chest 10/11/2015 EXAM PARAMETERS: NUMBER OF VIEWS: One view. TECHNIQUE: Single frontal radiographic view of the chest acquired. RADIATION DOSE: NA LIMITATIONS: None. FINDINGS: LUNGS AND PLEURA: Chronic increased interstitial markings at the bases left greater than r ight. Increased interstitial markings in the periphery of the right upper lobe. There is bandlike atelectasis in the left mid lung similar compared to 10/28/2016. No acute infiltrates, pleural effusion, or pneumothorax. MEDIASTINUM AND HILAR STRUCTURES: No masses. Contour normal. HEART AND VASCULAR STRUCTURES: Mild cardiomegaly BONES: No acute findings. HARDWARE: None in the chest. OTHER: No other significant finding. IMPRESSION: No acute infiltrates. Stable bandlike atelectasis in the left mid lung, increased interstitial markings bilaterally. TECHNICAL DOCUMENTATION: JOB ID: [id number]
[2016-11-04] MEDS: LEVOTHYROXINE SODIUM 0.1 MG TABLET PO SCH (09:08)
[2016-11-04] MEDS: FAMOTIDINE 20 MG TABLET PO SCH ×2 (09:09→21:36)
[2016-11-04] MEDS: PREDNISONE 20 MG TABLET PO SCH (09:09)
[2016-11-04] MEDS: ENOXAPARIN SODIUM INJ 30 MG/0.3 ML DISP.SYRIN SUBCUT SCH (09:09)
[2016-11-04] MEDS: LEVOTHYROXINE SODIUM 0.05 MG TABLET PO SCH (09:09)
--- NOTE | 2016-11-04 11:17 | PDOC PROGRESS REPORT ---
Subjective Progress Note for:: 11/04/16 Subjective:: Patient is currently doing fair. Alert awake and he was oriented at this point to the time place and person's Patient's denied any chest pain denied any shortness of the breath pt was admitted because of the respiratory failure currently all resolved Physical Exam Vital Signs: Temp Pulse Resp BP Pulse Ox 97.8 F 64 16 124/49 L 95 11/04/16 07:24 11/04/16 08:35 11/04/16 08:35 11/04/16 07:24 11/04/16 08:35 Intake & Output 11/03/16 11/04/16 11/05/16 06:59 06:59 06:59 Intake Total 1810 1040 Output Total 200 Balance 1610 1040 Weight 69.7 kg 69.6 kg General appearance: PRESENT: no acute distress, well-developed, well-nourished Head exam: PRESENT: atraumatic, normocephalic Eye exam: PRESENT: conjunctiva pink, EOMI, PERRLA. ABSENT: scleral icterus Ear exam: PRESENT: normal external ear exam Mouth exam: PRESENT: moist, tongue midline Neck exam: PRESENT: full ROM. ABSENT: carotid bruit, JVD, lymphadenopathy, thyromegaly Respiratory exam: PRESENT: clear to auscultation oh Cardiovascular exam: PRESENT: RRR. ABSENT: diastolic murmur, rubs, systolic murmur Pulses: PRESENT: normal dorsalis pedis pul, +2 pedal pulses bilateral Vascular exam: PRESENT: normal capillary refill GI/Abdominal exam: PRESENT: normal bowel sounds, soft. ABSENT: distended, guarding, mass, organolmegaly, rebound, tenderness Rectal exam: PRESENT: deferred Neurological exam: PRESENT: alert, awake, oriented to person, oriented to place , oriented to time. ABSENT: motor sensory deficit Psychiatric exam: PRESENT: appropriate affect, normal mood. ABSENT: homicidal ideation, suicidal ideation Skin exam: PRESENT: dry, intact, warm. ABSENT: cyanosis, rash Results Laboratory Results: 10/30/16 05:40 10/30/16 05:40 10/20/16 10/20/16 10/21/16 21:59 21:59 04:29 Creatine Kinase 22 L Cancelled CK-MB (CK-2) 1.90 Troponin I < 0.012 NT-Pro-B Natriuret Pep 10/21/16 10/21/16 10/21/16 04:29 05:20 11:25 Creatine Kinase < 20 L 28 L CK-MB (CK-2) 1.78 Troponin I < 0.012 NT-Pro-B Natriuret Pep 10/21/16 10/26/16 11:25 08:45 Creatine Kinase CK-MB (CK-2) 1.69 Troponin I 0.020 NT-Pro-B Natriuret Pep 295 Impressions: Chest X-Ray 11/04/16 06:00 IMPRESSION: No acute infiltrates. Stable bandlike atelectasis in the left mid lung, increased interstitial markings bilaterally. Assessment & Plan - Diagnosis (1) Acute exacerbation of chronic obstructive pulmonary disease (COPD) Is this a current diagnosis for this admission?: Yes (2) Hypothyroidism Qualifiers: Hypothyroidism type: unspecified Qualified Code(s): E03.9 - Hypothyroidism , unspecified Is this a current diagnosis for this admission?: Yes (3) Pneumonia Qualifiers: Pneumonia type: due to unspecified organism Laterality: left Lung location: lower lobe of lung Qualified Code(s): J18.1 - Lobar pneumonia, unspecified organism Is this a current diagnosis for this admission?: Yes (4) Type 2 diabetes mellitus Qualifiers: Diabetes mellitus complication status: without complication 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: without nursing 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
[2016-11-04] MEDS: INSULIN LISPRO 100 UNIT/ML 3 ML VIAL SUBCUT PRN (21:36)
[2016-11-05] MEDS: IPRATROPIUM/ALBUTEROL 0.5-2.5 MG/3 ML AMPUL NEB SCH ×3 (01:30→13:56)
[2016-11-05 04:43] LABS: ABSOLUTE BASOPHILS # (AUTO) 0.1 10^3/uL (0.0-0.2); ABSOLUTE EOSINOPHILS # (AUTO) 0.2 10^3/uL (0.0-0.6); ABSOLUTE LYMPHOCYTES (AUTO) 2.4 10^3/uL (0.5-4.7); ABSOLUTE MONOCYTES (AUTO) 0.8 10^3/uL (0.1-1.4); ABSOLUTE NEUT (AUTO) 6.8 10^3/uL (1.7-8.2); BASOPHILS % (AUTO) 1.1 % (0-2); EOSINOPHILS % (AUTO) 1.7 % (0-6); HEMATOCRIT 43.4 % (36.0-47.0); HEMOGLOBIN 14.4 g/dL (12.0-15.5); HGB HCT DIFFERENCE -0.2; LYMPHOCYTES % (AUTO) 23.6 % (13-45); MEAN CORPUSCULAR HEMOGLOBIN 29.6 pg (27.0-33.4); MEAN CORPUSCULAR HGB CONC 33.1 g/dL (32.0-36.0); MEAN CORPUSCULAR VOLUME 90 fl (80-97); MONOCYTES % (AUTO) 7.8 % (3-13); RED BLOOD COUNT 4.85 10^6/uL (3.72-5.28); RED CELL DISTRIBUTION WIDTH 16.4 % (11.5-14.0); SEGMENTED NEUTROPHILS % (AUTO) 65.8 % (42-78); WHITE BLOOD COUNT 10.3 10^3/uL (4.0-10.5)
[2016-11-05 05:09] LABS: ANION GAP 11 (5-19); BLOOD UREA NITROGEN 25 mg/dL (7-20); CALCIUM 9.4 mg/dL (8.4-10.2); CARBON DIOXIDE 29 mmol/L (22-30); CHLORIDE 98 mmol/L (98-107); CREATININE RESULT 0.79 mg/dL (0.52-1.25); GLUCOSE 99 mg/dL (75-110); POTASSIUM 4.1 mmol/L (3.6-5.0); SODIUM 137.5 mmol/L (137-145)
--- NOTE | 2016-11-05 07:33 | RADIOLOGY REPORT (SQ) ---
EXAM DESCRIPTION: CHEST SINGLE VIEW COMPLETED DATE/TIME: 11/05/2016 7:21 am REASON FOR STUDY: resp failure COMPARISON: 11/04/2016. EXAM PARAMETERS: NUMBER OF VIEWS: One view. TECHNIQUE: Single frontal radiographic view of the chest acquired. RADIATION DOSE: NA LIMITATIONS: None. FINDINGS: LUNGS AND PLEURA: Faint scattered atelectasis particularly in the left lung. MEDIASTINUM AND HILAR STRUCTURES: No masses. Contour normal. HEART AND VASCULAR STRUCTURES: Mild cardiac enlargement. Mild vascular prominence. BONES: No acute findings. Degenerative changes in the spine. HARDWARE: None in the chest. OTHER: No other significant finding. IMPRESSION: NO CHANGE IN APPEARANCE OF THE CHEST. TECHNICAL DOCUMENTATION: JOB ID: [id number]
[2016-11-05] MEDS: LEVOTHYROXINE SODIUM 0.05 MG TABLET PO SCH (09:06)
[2016-11-05] MEDS: FAMOTIDINE 20 MG TABLET PO SCH ×2 (09:07→21:51)
[2016-11-05] MEDS: PREDNISONE 20 MG TABLET PO SCH (09:07)
[2016-11-05] MEDS: LEVOTHYROXINE SODIUM 0.1 MG TABLET PO SCH (09:07)
[2016-11-05] MEDS: ENOXAPARIN SODIUM INJ 30 MG/0.3 ML DISP.SYRIN SUBCUT SCH (09:08)
[2016-11-05] MEDS: INSULIN LISPRO 100 UNIT/ML 3 ML VIAL SUBCUT PRN ×2 (13:13→17:14)
--- NOTE | 2016-11-05 14:14 | PDOC PROGRESS REPORT ---
Subjective Progress Note for:: 11/05/16 Subjective:: Patient is currently doing much better. Patient's denied any chest pain without any shortness of the breath Physical Exam Vital Signs: Temp Pulse Resp BP Pulse Ox 97.4 F 69 18 131/63 H 97 11/05/16 11:53 11/05/16 11:53 11/05/16 11:53 11/05/16 11:53 11/05/16 11:53 Intake & Output 11/04/16 11/05/16 11/06/16 06:59 06:59 06:59 Intake Total 1040 2950 Output Total 480 Balance 1040 2470 Weight 69.6 kg 68.2 kg General appearance: PRESENT: no acute distress, well-developed, well-nourished Head exam: PRESENT: atraumatic, normocephalic Eye exam: PRESENT: conjunctiva pink, EOMI, PERRLA. ABSENT: scleral icterus Ear exam: PRESENT: normal external ear exam Mouth exam: PRESENT: moist, tongue midline Neck exam: PRESENT: full ROM. ABSENT: carotid bruit, JVD, lymphadenopathy, thyromegaly Respiratory exam: PRESENT: clear to auscultation oh Cardiovascular exam: PRESENT: RRR. ABSENT: diastolic murmur, rubs, systolic murmur Pulses: PRESENT: normal dorsalis pedis pul, +2 pedal pulses bilateral Vascular exam: PRESENT: normal capillary refill GI/Abdominal exam: PRESENT: normal bowel sounds, soft. ABSENT: distended, guarding, mass, organolmegaly, rebound, tenderness Rectal exam: PRESENT: deferred Neurological exam: PRESENT: alert, awake, oriented to person, oriented to place. ABSENT: motor sensory deficit Psychiatric exam: PRESENT: appropriate affect, normal mood. ABSENT: homicidal ideation, suicidal ideation Skin exam: PRESENT: dry, intact, warm. ABSENT: cyanosis, rash Results Laboratory Results: 11/05/16 03:56 11/05/16 03:56 11/05/16 11/05/16 03:56 03:56 WBC 10.3 RBC 4.85 Hgb 14.4 Hct 43.4 MCV 90 MCH 29.6 MCHC 33.1 RDW 16.4 H Plt Count 115 L Seg Neutrophils % 65.8 Lymphocytes % 23.6 Monocytes % 7.8 Eosinophils % 1.7 Basophils % 1.1 Absolute Neutrophils 6.8 Absolute Lymphocytes 2.4 Absolute Monocytes 0.8 Absolute Eosinophils 0.2 Absolute Basophils 0.1 Sodium 137.5 Potassium 4.1 Chloride 98 Carbon Dioxide 29 Anion Gap 11 BUN 25 H Creatinine 0.79 Est GFR ( Amer) > 60 Est GFR (Non-Af Amer) > 60 Glucose 99 Calcium 9.4 10/20/16 10/20/16 10/21/16 21:59 21:59 04:29 Creatine Kinase 22 L Cancelled CK-MB (CK-2) 1.90 Troponin I < 0.012 NT-Pro-B Natriuret Pep 10/21/16 10/21/16 10/21/16 04:29 05:20 11:25 Creatine Kinase < 20 L 28 L CK-MB (CK-2) 1.78 Troponin I < 0.012 NT-Pro-B Natriuret Pep 10/21/16 10/26/16 11:25 08:45 Creatine Kinase CK-MB (CK-2) 1.69 Troponin I 0.020 NT-Pro-B Natriuret Pep 295 Impressions: Chest X-Ray 11/05/16 06:00 IMPRESSION: NO CHANGE IN APPEARANCE OF THE CHEST. Assessment & Plan - Diagnosis (1) Acute exacerbation of chronic obstructive pulmonary disease (COPD) Is this a current diagnosis for this admission?: Yes (2) Hypothyroidism Qualifiers: Hypothyroidism type: unspecified Qualified Code(s): E03.9 - Hypothyroidism , unspecified Is this a current diagnosis for this admission?: Yes (3) Pneumonia Qualifiers: Pneumonia type: due to unspecified organism Laterality: left Lung location: lower lobe of lung Qualified Code(s): J18.1 - Lobar pneumonia, unspecified organism Is this a current diagnosis for this admission?: Yes (4) Type 2 diabetes mellitus Qualifiers: Diabetes mellitus complication status: without complication 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
[2016-11-05] MEDS ORDERED: HALOPERIDOL LACTATE INJ 5 MG/1 ML VIAL IV ONE (22:30)
[2016-11-06 07:52] LABS: ANION GAP 9 (5-19); BLOOD UREA NITROGEN 24 mg/dL (7-20); CALCIUM 9.6 mg/dL (8.4-10.2); CARBON DIOXIDE 26 mmol/L (22-30); CHLORIDE 102 mmol/L (98-107); GLUCOSE 140 mg/dL (75-110); POTASSIUM 4.6 mmol/L (3.6-5.0); SODIUM 137.3 mmol/L (137-145)
--- NOTE | 2016-11-06 10:43 | PDOC PROGRESS REPORT ---
Subjective Progress Note for:: 11/06/16 Subjective:: Completely disoriented Physical Exam Vital Signs: Temp Pulse Resp BP Pulse Ox 97.9 F 68 18 120/61 94 11/06/16 07:25 11/06/16 07:25 11/06/16 07:25 11/06/16 07:25 11/06/16 07:25 Intake & Output 11/05/16 11/06/16 11/07/16 06:59 06:59 06:59 Intake Total 2950 1295 Output Total 480 325 Balance 2470 970 Weight 68.2 kg 71.2 kg General appearance: PRESENT: no acute distress, disheveled, obese, well- developed Head exam: PRESENT: atraumatic, normocephalic Eye exam: PRESENT: conjunctiva pale, EOMI Mouth exam: PRESENT: dry mucosa, neck supple, tongue midline Neck exam: ABSENT: carotid bruit, JVD, lymphadenopathy, thyromegaly Respiratory exam: PRESENT: decreased breath sounds, prolonged expiratory phas, rhonchi, symmetrical, unlabored. ABSENT: rales, retraction, stridor, tachypnea Cardiovascular exam: PRESENT: RRR, +S1, +S2 Pulses: PRESENT: normal radial pulses GI/Abdominal exam: PRESENT: normal bowel sounds, soft. ABSENT: distended, guarding, mass, organolmegaly, rebound, tenderness Rectal exam: PRESENT: deferred Gentrourinary exam: PRESENT: indwelling catheter Extremities exam: PRESENT: +1 edema Neurological exam: PRESENT: altered, awake. ABSENT: alert, oriented to person, oriented to place, oriented to time, oriented to situation Skin exam: PRESENT: dry, warm Results Laboratory Results: 11/05/16 03:56 11/06/16 06:59 11/06/16 11/06/16 04:05 06:59 Sodium Cancelled 137.3 Potassium Cancelled 4.6 Chloride Cancelled 102 Carbon Dioxide Cancelled 26 Anion Gap Cancelled 9 BUN Cancelled 24 H Creatinine Cancelled 0.80 Est GFR ( Amer) Cancelled > 60 Est GFR (Non-Af Amer) Cancelled > 60 Glucose Cancelled 140 H Calcium Cancelled 9.6 10/20/16 10/20/16 10/21/16 21:59 21:59 04:29 Creatine Kinase 22 L Cancelled CK-MB (CK-2) 1.90 Troponin I < 0.012 NT-Pro-B Natriuret Pep 10/21/16 10/21/16 10/21/16 04:29 05:20 11:25 Creatine Kinase < 20 L 28 L CK-MB (CK-2) 1.78 Troponin I < 0.012 NT-Pro-B Natriuret Pep 10/21/16 10/26/16 11:25 08:45 Creatine Kinase CK-MB (CK-2) 1.69 Troponin I 0.020 NT-Pro-B Natriuret Pep 295 Impressions: Chest X-Ray 11/05/16 06:00 IMPRESSION: NO CHANGE IN APPEARANCE OF THE CHEST. Assessment & Plan - Diagnosis (1) Acute exacerbation of chronic obstructive pulmonary disease (COPD) Is this a current diagnosis for this admission?: No (2) Acute hypercapnic respiratory failure Is this a current diagnosis for this admission?: No (3) Pneumonia Qualifiers: Pneumonia type: due to unspecified organism Laterality: left Lung location: lower lobe of lung Qualified Code(s): J18.1 - Lobar pneumonia, unspecified organism Is this a current diagnosis for this admission?: Yes Plan: 10/20/16 22:30 Gram Stain - Final Tracheal Aspirate Sputum Culture - Final Streptococcus Pneumoniae Staphylococcus Aureus Acinetobacter Baumannii/Haem Reduced Normal [place] no fever
[2016-11-06] MEDS: ENOXAPARIN SODIUM INJ 30 MG/0.3 ML DISP.SYRIN SUBCUT SCH (11:32)
[2016-11-06] MEDS: PREDNISONE 20 MG TABLET PO SCH (11:32)
[2016-11-06] MEDS: FAMOTIDINE 20 MG TABLET PO SCH ×2 (11:32→21:33)
[2016-11-06] MEDS: LEVOTHYROXINE SODIUM 0.05 MG TABLET PO SCH (11:32)
[2016-11-06] MEDS: LEVOTHYROXINE SODIUM 0.1 MG TABLET PO SCH (11:32)
--- NOTE | 2016-11-06 20:34 | PDOC TRANSFER SUMMARY ---
General - Admit/Disc Date/PCP Admission Date/Primary Care Provider: 10/20/16 20:20 Discharge Date: 11/07/16 - Discharge Diagnosis (1) Acute hypercapnic respiratory failure Is this a current diagnosis for this admission?: Yes (2) Acute exacerbation of chronic obstructive pulmonary disease (COPD) Is this a current diagnosis for this admission?: Yes (3) Hyperkalemia Is this a current diagnosis for this admission?: Yes (4) Hypotension Is this a current diagnosis for this admission?: Yes (5) Hypothyroidism Is this a current diagnosis for this admission?: Yes (6) Type 2 diabetes mellitus Is this a current diagnosis for this admission?: Yes - Additional Information Resuscitation Status: Full Code Home Medications: Albuterol Sulfate [Albuterol Sulfate 2.5mg/3 mL] 1 vial IH RTQ6HP PRN 10/20/16 Albuterol Sulfate [Proair HFA] 2 puff IN Q4HP PRN 10/20/16 Aspirin [Aspirin 325 mg Tablet] 325 mg PO DAILY 10/20/16 Guaifen/Dextromethorphan/PE [Robitussin Cough-Cold Cf Liq] 5 ml PO Q12HP PRN 09/28 Levothyroxine Sodium [Synthroid] 50 mcg PO DAILY 10/20/16 Levothyroxine Sodium [Synthroid] 200 mcg PO DAILY 10/20/16 Nystatin [Mycostatin Topical Powder 15 gm] 1 applic TP Q12 10/20/16 Potassium Chloride [Klor-Con] 20 meq PO DAILY 10/20/16 Albuterol Sulfate [Proair HFA] 1 - 2 puff IH Q4 PRN #1 inhaler 11/06/16 Tiotropium [place] [Spiriva Handihaler 18 mcg/dose (30 Dose)] 1 cap IH DAILY # 30 capsule 11/06/16 History of Present Illness Admission Date/PCP: 10/20/16 20:20 Patient was admitted when she presented with acute hypercapnic respiratory failure, hypokalemia, acute COPD exacerbation. She was intubated on mechanical ventilation and transferred to intensive care unit. History of Present Illness: Patient was admitted for the management of acute hypercapnic respiratory failure , she was managed in intensive care unit on mechanical ventilation she was treated with intravenous Solu-Medrol, IV antibiotic empirically, hospital course was complicated with hypotension, she required intravenous vasopressor with norepinephrine intravenously. She also had ventilator associated pneumonia. She was seen by pulmonary. She was subsequently extubated and transferred to intermediate care unit. The plan is to transfer to residential for rehabilitation. Physical Exam Vital Signs: Temp Pulse Resp BP Pulse Ox 99.1 F 87 18 137/53 H 92 11/06/16 15:16 11/06/16 15:16 11/06/16 15:16 11/06/16 15:16 11/06/16 15:16 Intake & Output 11/05/16 11/06/16 11/07/16 06:59 06:59 06:59 Intake Total 2950 1295 120 Output Total 480 325 Balance 2470 970 120 Weight 68.2 kg 71.2 kg General appearance: PRESENT: no acute distress Eye exam: PRESENT: PERRLA Respiratory exam: PRESENT: rhonchi Cardiovascular exam: PRESENT: +S1, +S2 Neurological exam: PRESENT: alert, CN II-XII grossly intact Results Laboratory Results: 11/05/16 03:56 11/06/16 06:59 11/06/16 11/06/16 04:05 06:59 Sodium Cancelled 137.3 Potassium Cancelled 4.6 Chloride Cancelled 102 Carbon Dioxide Cancelled 26 Anion Gap Cancelled 9 BUN Cancelled 24 H Creatinine Cancelled 0.80 Est GFR ( Amer) Cancelled > 60 Est GFR (Non-Af Amer) Cancelled > 60 Glucose Cancelled 140 H Calcium Cancelled 9.6 10/20/16 10/20/16 10/21/16 21:59 21:59 04:29 Creatine Kinase 22 L Cancelled CK-MB (CK-2) 1.90 Troponin I < 0.012 NT-Pro-B Natriuret Pep 10/21/16 10/21/16 10/21/16 04:29 05:20 11:25 Creatine Kinase < 20 L 28 L CK-MB (CK-2) 1.78 Troponin I < 0.012 NT-Pro-B Natriuret Pep 10/21/16 10/26/16 11:25 08:45 Creatine Kinase CK-MB (CK-2) 1.69 Troponin I 0.020 NT-Pro-B Natriuret Pep 295 Impressions: Chest X-Ray 11/05/16 06:00 IMPRESSION: NO CHANGE IN APPEARANCE OF THE CHEST.
--- NOTE | 2016-11-06 20:36 | PDOC PROGRESS REPORT ---
Subjective Progress Note for:: 11/06/16 Subjective:: Patient was seen by the bedside the plan is [facility] transfer [facility] Physical Exam Vital Signs: Temp Pulse Resp BP Pulse Ox 99.1 F 87 18 137/53 H 92 11/06/16 15:16 11/06/16 15:16 11/06/16 15:16 11/06/16 15:16 11/06/16 15:16 Intake & Output 11/05/16 11/06/16 11/07/16 06:59 06:59 06:59 Intake Total 2950 1295 120 Output Total 480 325 Balance 2470 970 120 Weight 68.2 kg 71.2 kg General appearance: PRESENT: no acute distress Eye exam: PRESENT: PERRLA Respiratory exam: PRESENT: rhonchi Cardiovascular exam: PRESENT: +S1, +S2 Neurological exam: PRESENT: alert Results Laboratory Results: 11/05/16 03:56 11/06/16 06:59 11/06/16 11/06/16 04:05 06:59 Sodium Cancelled 137.3 Potassium Cancelled 4.6 Chloride Cancelled 102 Carbon Dioxide Cancelled 26 Anion Gap Cancelled 9 BUN Cancelled 24 H Creatinine Cancelled 0.80 Est GFR ( Amer) Cancelled > 60 Est GFR (Non-Af Amer) Cancelled > 60 Glucose Cancelled 140 H Calcium Cancelled 9.6 10/20/16 10/20/16 10/21/16 21:59 21:59 04:29 Creatine Kinase 22 L Cancelled CK-MB (CK-2) 1.90 Troponin I < 0.012 NT-Pro-B Natriuret Pep 10/21/16 10/21/16 10/21/16 04:29 05:20 11:25 Creatine Kinase < 20 L 28 L CK-MB (CK-2) 1.78 Troponin I < 0.012 NT-Pro-B Natriuret Pep 10/21/16 10/26/16 11:25 08:45 Creatine Kinase CK-MB (CK-2) 1.69 Troponin I 0.020 NT-Pro-B Natriuret Pep 295 Impressions: Chest X-Ray 11/05/16 06:00 IMPRESSION: NO CHANGE IN APPEARANCE OF THE CHEST. Assessment & Plan - Diagnosis (1) Acute hypercapnic respiratory failure Is this a current diagnosis for this admission?: Yes (2) Acute exacerbation of chronic obstructive pulmonary disease (COPD) Is this a current diagnosis for this admission?: Yes (3) Hyperkalemia Is this a current diagnosis for this admission?: Yes (4) Hypotension Qualifiers: Hypotension type: unspecified hypotension type Qualified Code(s): I95.9 - Hypotension, unspecified Is this a current diagnosis for this admission?: Yes (5) Hypothyroidism Qualifiers: Hypothyroidism type: unspecified Qualified Code(s): E03.9 - Hypothyroidism , unspecified Is this a current diagnosis for this admission?: Yes (6) Type 2 diabetes mellitus Qualifiers: Diabetes mellitus complication status: without complication 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
[2016-11-07 04:46] LABS: ANION GAP 11 (5-19); BLOOD UREA NITROGEN 28 mg/dL (7-20); CALCIUM 9.8 mg/dL (8.4-10.2); CARBON DIOXIDE 23 mmol/L (22-30); CHLORIDE 102 mmol/L (98-107); CREATININE RESULT 0.97 mg/dL (0.52-1.25); GLUCOSE 185 mg/dL (75-110); POTASSIUM 4.6 mmol/L (3.6-5.0); SODIUM 135.5 mmol/L (137-145)
--- NOTE | 2016-11-07 08:33 | RADIOLOGY REPORT (SQ) ---
EXAM DESCRIPTION: CHEST SINGLE VIEW COMPLETED DATE/TIME: 11/07/2016 8:17 am REASON FOR STUDY: resp failure COMPARISON: 11/05/2016. EXAM PARAMETERS: NUMBER OF VIEWS: One view. TECHNIQUE: Single frontal radiographic view of the chest acquired. RADIATION DOSE: NA LIMITATIONS: None. FINDINGS: LUNGS AND PLEURA: Chronic interstitial changes with curvilinear density in the left lung u nchanged. No focal infiltrates. No pleural effusion or pneumothorax. MEDIASTINUM AND HILAR STRUCTURES: No masses. Contour normal. HEART AND VASCULAR STRUCTURES: Heart normal in size. Normal vasculature. BONES: No acute findings. Degenerative changes in the spine. HARDWARE: None in the chest. OTHER: No other significant finding. IMPRESSION: NO CHANGE IN APPEARANCE OF THE CHEST. TECHNICAL DOCUMENTATION: JOB ID: [id number]
[2016-11-07] MEDS: PREDNISONE 20 MG TABLET PO SCH (09:33)
[2016-11-07] MEDS: LEVOTHYROXINE SODIUM 0.1 MG TABLET PO SCH (09:34)
[2016-11-07] MEDS: LEVOTHYROXINE SODIUM 0.05 MG TABLET PO SCH (09:34)
[2016-11-07] MEDS: FAMOTIDINE 20 MG TABLET PO SCH (09:37)
[2016-11-07] MEDS: ENOXAPARIN SODIUM INJ 30 MG/0.3 ML DISP.SYRIN SUBCUT SCH (09:37)
[2016-11-07 16:31] VITALS: BP 120/65
== END 2016-11-07 18:36 | DRG 207 ==
LOC: ER 15:02 → EH 18:56 → UNDOADMIN 18:56 → EH 20:20 → ICU 22:15 → 5 10-30 14:47
PROVIDERS: ADMIT Internal Medicine; ATTEND Internal Medicine
PROC: 5A1955Z Respiratory Ventilation, Greater than 96 Consecutive Hours (ICD-10-PCS; principal; 2016-10-20)
PROC: 0BH17EZ Insertion of Endotracheal Airway into Trachea, Via Natural or Artificial Opening (ICD-10-PCS; 2016-10-20)
DX: J96.22 Acute and chronic respiratory failure with hypercapnia (principal); J18.1 Lobar pneumonia, unspecified organism; J44.1 Chronic obstructive pulmonary disease with (acute) exacerbation; J44.0 Chronic obstructive pulmonary disease with (acute) lower respiratory infection; J95.851 Ventilator associated pneumonia; I50.9 Heart failure, unspecified; I11.0 Hypertensive heart disease with heart failure; E03.9 Hypothyroidism, unspecified; E87.5 Hyperkalemia; I95.9 Hypotension, unspecified; E66.9 Obesity, unspecified; Z68.32 Body mass index [BMI] 32.0-32.9, adult; Z79.51 Long term (current) use of inhaled steroids; Z82.49 Family history of ischemic heart disease and other diseases of the circulatory system; Z88.6 Allergy status to analgesic agent; Z79.899 Other long term (current) drug therapy; Z91.010 Allergy to peanuts; Z79.84 Long term (current) use of oral hypoglycemic drugs; Z91.011 Allergy to milk products; Z78.1 Physical restraint status; J84.10 Pulmonary fibrosis, unspecified; E11.51 Type 2 diabetes mellitus with diabetic peripheral angiopathy without gangrene; F17.210 Nicotine dependence, cigarettes, uncomplicated; Z83.3 Family history of diabetes mellitus; B95.3 Streptococcus pneumoniae as the cause of diseases classified elsewhere
CPT/HCPCS: 36415; 51701; 71010; 80048; 80053; 80061; 80307; 81001; 82140; 82150; 82550; 82553; 82570; 82803; 82962; 83036; 83605; 83690; 83735; 83880; 84100; 84156; 84439; 84443; 84478; 84484; 85025; 85379; 85610; 85730; 87040; 87070; 87077; 87086; 87186; 87205; 93005; 93010; 94002; 94003; 94640; 94660; 94799; 96365; 96375; 99291; G8978-GP; G8979-GP; J0456; J0610; J0696; J1630; J1650; J1815; J1940; J2704; J2920; J2930; J3490; J7030; J7060; J7512; J7620; S0028

== ENCOUNTER 2017-01-15 19:36 | Inpatient (IN) | payer MEDICARE ==
--- NOTE | 2017-01-15 20:04 | ER Document Report ---
ED Medical Screen (RME) - General Chief Complaint: Breathing Difficulty Stated Complaint: FLU LIKE SYMPTOMS Time Seen by Provider: 01/15/17 20:02 Notes: Patient states for several days she has had cough cold congestion and fevers. She states she did not receive a flu shot this year. TRAVEL OUTSIDE OF THE [place] IN LAST 30 DAYS: No - Related Data Allergies/Adverse Reactions: albuterol sulfate [From DuoNeb] Allergy (Verified 10/06/14 22:21) allopurinol [From Zyloprim] Allergy (Verified 10/06/14 22:21) alprazolam [From Xanax] Allergy (Verified 10/06/14 22:21) amitriptyline HCl [From Elavil] Allergy (Verified 10/06/14 22:21) atorvastatin calcium [From Lipitor] Allergy (Verified 10/06/14 22:21) belladonna alkaloids [From Bellergal-S] Allergy (Verified 10/06/14 22:21) bupivacaine [Bupivacaine] Allergy (Verified 10/06/14 22:21) cefuroxime axetil [From Ceftin] Allergy (Verified 10/06/14 22:21) celecoxib [From Celebrex] Allergy (Verified 10/06/14 22:21) cimetidine [From Tagamet] Allergy (Verified 10/06/14 22:21) ciprofloxacin [Ciprofloxacin] Allergy (Verified 10/06/14 22:21) codeine [Codeine] Allergy (Verified 10/06/14 22:21) doxepin HCl [From Sinequan] Allergy (Verified 10/06/14 22:21) ergotamine tartrate [From Bellergal-S] Allergy (Verified 10/06/14 22:21) fluoxetine HCl [From Prozac] Allergy (Verified 10/06/14 22:21) hydroxyzine HCl [From Atarax] Allergy (Verified 10/06/14 22:21) indigotindisulfonic acid [From Indigo [place]] Allergy (Verified 10/11/15 07:27) ipratropium bromide [From DuoNeb] Allergy (Verified 10/06/14 22:21) lemon oil Allergy (Verified 10/06/14 22:21) malathion Allergy (Verified 10/06/14 22:21) mefenamic acid Allergy (Verified 10/06/14 22:21) metformin HCl [From Glucophage] Allergy (Verified 10/06/14 22:21) metoclopramide HCl [From Reglan] Allergy (Verified 10/06/14 22:21) Milk Containing Products Allergy (Verified 10/06/14 22:21) morphine Allergy (Verified 10/06/14 22:21) naproxen sodium [From Anaprox] Allergy (Verified 10/06/14 22:21) nefazodone HCl [From Serzone] Allergy (Verified 10/06/14 22:21) peanut Allergy (Verified 10/06/14 22:21) phenobarbital [From Bellergal-S] Allergy (Verified 10/06/14 22:21) phenylephrine tannate [From Deconsal CT] Allergy (Verified 10/06/14 22:21) pyrilamine tannate [From Deconsal CT] Allergy (Verified 10/06/14 22:21) sertraline HCl [From Zoloft] Allergy (Verified 10/06/14 22:21) sucralfate [From Carafate] Allergy (Verified 10/06/14 22:21) tolterodine tartrate [From Detrol] Allergy (Verified 10/06/14 22:21) tramadol Allergy (Verified 10/06/14 22:21) trazodone HCl [From Desyrel] Allergy (Verified 10/06/14 22:21) my-e Allergy (Uncoded 10/06/14 22:21) renuzil Allergy (Uncoded 10/06/14 22:21) surgical steel Allergy (Uncoded 10/06/14 22:21) Past Medical History - Past Medical History Cardiac Medical History: Reports: Hx Congestive Heart Failure, Hx Hypertension, Hx Peripheral Vascular Disease Pulmonary Medical History: Reports: Hx COPD Endocrine Medical History: Reports: Hx Diabetes Mellitus Type 2, Hx Hypothyroidism Renal/ Medical History: Denies: Hx Peritoneal Dialysis Past Surgical History: Reports: Hx Cholecystectomy, Hx Orthopedic Surgery - L Wrist - Immunizations Immunizations up to date: No Hx Diphtheria, Pertussis, Tetanus Vaccination: No Physical Exam - Vital signs Vitals: Temp Pulse Resp BP Pulse Ox 98.1 F 90 22 H 122/49 L 90 L 01/15/17 19:45 01/15/17 19:45 01/15/17 19:45 01/15/17 19:45 01/15/17 19:45 Course - Vital Signs Vital signs: Temp Pulse Resp BP Pulse Ox 98.1 F 90 22 H 122/49 L 90 L 01/15/17 19:45 01/15/17 19:45 01/15/17 19:45 01/15/17 19:45 01/15/17 19:45
--- NOTE | 2017-01-15 20:46 | RADIOLOGY REPORT (SQ) ---
EXAM DESCRIPTION: CHEST PA/LAT COMPLETED DATE/TIME: 01/15/2017 8:19 pm REASON FOR STUDY: cough COMPARISON: September 2015 EXAM PARAMETERS: NUMBER OF VIEWS: two views TECHNIQUE: Digital Frontal and Lateral radiographic views of the chest acquired. RADIATION DOSE: NA LIMITATIONS: none FINDINGS: LUNGS AND PLEURA: Chronic appearing changes are again identified. There are scattered con fluent densities which I cannot exclude as an acute process superimposed on the chronic underlying ch anges. There is some minimal blunting of the costophrenic angles especially on the left which I amy ot exclude is tiny pleural effusions. MEDIASTINUM AND HILAR STRUCTURES: No masses or contour abnormalities. HEART AND VASCULAR STRUCTURES: The configuration of the heart and mediastinal structures is unchanged . A degree of pulmonary vascular congestion is seen. BONES: No acute findings. HARDWARE: None in the chest. OTHER: No other significant finding. IMPRESSION: Chronic appearing changes are again identified. There are scattered confluent densities which I cannot exclude as an acute process superimposed on the chronic underlying changes. There is some blunting of the costophrenic angles which I cannot exclude is tiny pleural effusions. Other fi ndings as noted above TECHNICAL DOCUMENTATION: JOB ID: [id number] [employer]- All Rights Reserved
[2017-01-15 21:31] LABS: ABSOLUTE EOSINOPHILS # (AUTO) 0.2 10^3/uL (0.0-0.6); ABSOLUTE LYMPHOCYTES (AUTO) 1.8 10^3/uL (0.5-4.7); ABSOLUTE MONOCYTES (AUTO) 1.2 10^3/uL (0.1-1.4); ABSOLUTE NEUT (AUTO) 14.3 10^3/uL (1.7-8.2); BASOPHILS % (AUTO) 0.3 % (0-2); EOSINOPHILS % (AUTO) 0.9 % (0-6); HEMATOCRIT 35.2 % (36.0-47.0); HEMOGLOBIN 11.5 g/dL (12.0-15.5); HGB HCT DIFFERENCE -0.7; LYMPHOCYTES % (AUTO) 10.2 % (13-45); MEAN CORPUSCULAR HGB CONC 32.7 g/dL (32.0-36.0); MEAN CORPUSCULAR VOLUME 92 fl (80-97); MONOCYTES % (AUTO) 6.7 % (3-13); RED BLOOD COUNT 3.83 10^6/uL (3.72-5.28); RED CELL DISTRIBUTION WIDTH 16.3 % (11.5-14.0); SEGMENTED NEUTROPHILS % (AUTO) 81.9 % (42-78); VENOUS BLOOD BASE EXCESS 7.3 mmol/L; VENOUS BLOOD HCO3 35.3 mmol/L (20-32); VENOUS BLOOD PH 7.33 (7.30-7.42); WHITE BLOOD COUNT 17.4 10^3/uL (4.0-10.5)
[2017-01-15 21:35] LABS: APPEARANCE,URINE CLEAR; BILIRUBIN,URINE NEGATIVE (NEGATIVE); GLUCOSE, URINE NEGATIVE (NEGATIVE); KETONES,URINE NEGATIVE (NEGATIVE); LEUKOCYTE ESTERASE,URINE NEGATIVE (NEGATIVE); NITRITE,URINE POSITIVE (NEGATIVE); PROTEIN,URINE 30 mg/dL (NEGATIVE); UROBILINOGEN,URINE NEGATIVE mg/dL (<2.0)
[2017-01-15 21:39] LABS: VENOUS BLOOD PCO2 68.2 mmHg (35-63)
--- NOTE | 2017-01-15 21:49 | EKG REPORT ---
SEVERITY:- ABNORMAL ECG - SINUS RHYTHM VENTRICULAR TRIGEMINY BORDERLINE RIGHT AXIS DEVIATION BORDERLINE INFERIOR Q WAVES ABNORMAL T, PROBABLE ISCHEMIA, ANT-LAT LEADS APCs : Confirmed by: Melissa Menendez 15-Jan-2017 21:49:16
[2017-01-15 21:52] LABS: ALANINE AMINOTRANSFERASE 24 U/L (9-52); ALBUMIN 3.1 g/dL (3.5-5.0); ALKALINE PHOSPHATASE 111 U/L (38-126); ANION GAP 10 (5-19); ASPARTATE AMINO TRANSFERASE 15 U/L (14-36); BILIRUBIN,DIRECT 0.4 mg/dL (0.0-0.4); BILIRUBIN,TOTAL 0.4 mg/dL (0.2-1.3); BLOOD UREA NITROGEN 8 mg/dL (7-20); CALCIUM 9.1 mg/dL (8.4-10.2); CARBON DIOXIDE 32 mmol/L (22-30); CHLORIDE 101 mmol/L (98-107); CREATININE RESULT 0.81 mg/dL (0.52-1.25); GLUCOSE 89 mg/dL (75-110); POTASSIUM 4.1 mmol/L (3.6-5.0); SODIUM 143.1 mmol/L (137-145); TOTAL PROTEIN 6.2 g/dL (6.3-8.2)
[2017-01-15 22:04] LABS: BACTERIA,URINE 3+ /HPF
--- NOTE | 2017-01-15 22:27 | ER Document Report ---
ED General - General Chief Complaint: Breathing Difficulty Stated Complaint: FLU LIKE SYMPTOMS Time Seen by Provider: 01/15/17 20:02 Notes: Patient is 8-year-old female presents with complaint of cough congestion fevers. She does have history of COPD and still continues to smoke. Her primary care doctor is Dr. Gillette. She denies any vomiting. No diarrhea. She wears 3-3-1/2 L of oxygen at home. She presents with 4 L on oxygen saturation at 90%. She denies any vomiting or diarrhea. She has multiple allergies of her allergy list. She says most of these "allergies are actually just reactions. She says all antibiotics except for Bactrim caused diarrhea. No continuous chest pain but she does say that she occasionally has skipped heartbeats which cause her discomfort. He denies currently being on any type of steroid therapy. TRAVEL OUTSIDE OF THE [place] IN LAST 30 DAYS: No - Related Data Allergies/Adverse Reactions: albuterol sulfate [From DuoNeb] Allergy (Verified 10/06/14 22:21) allopurinol [From Zyloprim] Allergy (Verified 10/06/14 22:21) alprazolam [From Xanax] Allergy (Verified 10/06/14 22:21) amitriptyline HCl [From Elavil] Allergy (Verified 10/06/14 22:21) atorvastatin calcium [From Lipitor] Allergy (Verified 10/06/14 22:21) belladonna alkaloids [From Bellergal-S] Allergy (Verified 10/06/14 22:21) bupivacaine [Bupivacaine] Allergy (Verified 10/06/14 22:21) cefuroxime axetil [From Ceftin] Allergy (Verified 10/06/14 22:21) celecoxib [From Celebrex] Allergy (Verified 10/06/14 22:21) cimetidine [From Tagamet] Allergy (Verified 10/06/14 22:21) ciprofloxacin [Ciprofloxacin] Allergy (Verified 10/06/14 22:21) codeine [Codeine] Allergy (Verified 10/06/14 22:21) doxepin HCl [From Sinequan] Allergy (Verified 10/06/14 22:21) ergotamine tartrate [From Bellergal-S] Allergy (Verified 10/06/14 22:21) fluoxetine HCl [From Prozac] Allergy (Verified 10/06/14 22:21) hydroxyzine HCl [From Atarax] Allergy (Verified 10/06/14 22:21) indigotindisulfonic acid [From Indigo [place]] Allergy (Verified 10/11/15 07:27) ipratropium bromide [From DuoNeb] Allergy (Verified 10/06/14 22:21) lemon oil Allergy (Verified 10/06/14 22:21) malathion Allergy (Verified 10/06/14 22:21) mefenamic acid Allergy (Verified 10/06/14 22:21) metformin HCl [From Glucophage] Allergy (Verified 10/06/14 22:21) metoclopramide HCl [From Reglan] Allergy (Verified 10/06/14 22:21) Milk Containing Products Allergy (Verified 10/06/14 22:21) morphine Allergy (Verified 10/06/14 22:21) naproxen sodium [From Anaprox] Allergy (Verified 10/06/14 22:21) nefazodone HCl [From Serzone] Allergy (Verified 10/06/14 22:21) peanut Allergy (Verified 10/06/14 22:21) phenobarbital [From Bellergal-S] Allergy (Verified 10/06/14 22:21) phenylephrine tannate [From Deconsal CT] Allergy (Verified 10/06/14 22:21) pyrilamine tannate [From Deconsal CT] Allergy (Verified 10/06/14 22:21) sertraline HCl [From Zoloft] Allergy (Verified 10/06/14 22:21) sucralfate [From Carafate] Allergy (Verified 10/06/14 22:21) tolterodine tartrate [From Detrol] Allergy (Verified 10/06/14 22:21) tramadol Allergy (Verified 10/06/14 22:21) trazodone HCl [From Desyrel] Allergy (Verified 10/06/14 22:21) my-e Allergy (Uncoded 10/06/14 22:21) renuzil Allergy (Uncoded 10/06/14 22:21) surgical steel Allergy (Uncoded 10/06/14 22:21) Past Medical History - Social History Smoking Status: Current Every Day Smoker Frequency of alcohol use: None Drug Abuse: None Family History: DM, Hypertension Patient has suicidal ideation: No Patient has homicidal ideation: No - Past Medical History Cardiac Medical History: Reports: Hx Congestive Heart Failure, Hx Hypertension, Hx Peripheral Vascular Disease Pulmonary Medical History: Reports: Hx COPD Endocrine Medical History: Reports: Hx Diabetes Mellitus Type 2, Hx Hypothyroidism Renal/ Medical History: Denies: Hx Peritoneal Dialysis Past Surgical History: Reports: Hx Cholecystectomy, Hx Orthopedic Surgery - L Wrist - Immunizations Immunizations up to date: No Hx Diphtheria, Pertussis, Tetanus Vaccination: No Review of Systems - Review of Systems Notes: My Normal Review Basic REVIEW OF SYSTEMS: CONSTITUTIONAL : Subjective fevers. EENT: Congestion CARDIOVASCULAR: palpitations RESPIRATORY: Current cough. GASTROINTESTINAL: Denies abdominal pain. Denies nausea, vomiting, or diarrhea. Denies constipation. Last BM: GENITOURINARY: Denies difficulty urinating, painful urination, burning, frequency, or blood in urine. MUSCULOSKELETAL: Denies neck or back pain or joint pain or swelling. SKIN: Denies rash or skin lesions. NEUROLOGICAL: Denies altered mental status or loss of consciousness. Denies weakness or paralysis or loss of use of either side. Denies problems with gait or speech. Denies sensory or motor loss. ALL OTHER SYSTEMS REVIEWED AND NEGATIVE. Physical Exam - Vital signs Vitals: Temp Pulse Resp BP Pulse Ox 98.1 F 90 22 H 122/49 L 90 L 01/15/17 19:45 01/15/17 19:45 01/15/17 19:45 01/15/17 19:45 01/15/17 19:45 - Notes Notes: General Appearance: Well nourished, alert, cooperative, mildno acute distress, no obvious discomfort. Vitals: reviewed, See vital signs table. Head: no swelling or tenderness to the head Eyes: PERRL, EOMI, Conjuctiva clear Mouth: No decreasd moisture Neck: Supple, no neck tenderness, No thyromegaly Lungs: Diffuse wheezing, No rales, Diffuse rhonci, No accessory muscle use, fair air exchange bilaterally. Heart: Normal rate, Regular rythm, No murmur, no rub Abdomen: Normal BS, soft, No rigidity, No abdominal tenderness, No guarding, no rebound, no abdominal masses, no organomegaly Extremities: strength 5/5 in all extremities, good pulses in all extremities, no swelling or tenderness in the extremities, no edema. Skin: warm, dry, appropriate color, no rash Neuro: speech clear, oriented x 3, normal affect, responds appropriately to questions. Course - Re-evaluation Re-evalutation: 01/15/17 22:43 Patient likely has pneumonia based on clinical presentation, leukocytosis, and findings and chest x-ray. She also has hypercarbia. She is using increased amounts of oxygen because of her difficulty breathing. At 4 L oxygen saturations still 90%. I feel that she needs admission. Patient has many antibiotic allergies and says the only antibiotic she is ever taken it does not cause either diarrhea or allergic reaction is Bactrim. I informed her that this would not be appropriate for pneumonia alone with her current history. I went over with her and she says that all the antibiotics cause her diarrhea and that is why she has them on her allergic reaction list. She says the main is on her allergy that causes actual true allergic reaction are Elavil and cantaloupe. 01/15/17 23:28 I did speak with Dr. Gillette. He agrees to accept the patient for admission. I will place patient on BiPAP as she already has hypercapnia and she is requiring increased amounts of oxygen. Chest x-ray is read as chronic process with some acute findings which I suspect is pneumonia based on her history and physical exam findings. I have given her some breathing treatments. I will give Solu-Medrol. Patient otherwise clinically is doing well without significant distress. Patient will be admitted for further treatment and workup. Dictation of this chart was performed using voice recognition software; therefore, there may be some unintended grammatical errors. - Vital Signs Vital signs: Temp Pulse Resp BP Pulse Ox 98.1 F 90 22 H 122/49 L 90 L 01/15/17 19:45 01/15/17 19:45 01/15/17 19:45 01/15/17 19:45 01/15/17 19:45 - Laboratory Result Diagrams: 01/15/17 21:00 01/15/17 21:00 Laboratory results interpreted by me: 01/15/17 01/15/17 01/15/17 21:00 21:00 21:00 WBC 17.4 H Hgb 11.5 L Hct 35.2 L RDW 16.3 H Seg Neutrophils % 81.9 H Lymphocytes % 10.2 L Absolute Neutrophils 14.3 H VBG pCO2 68.2 H* VBG HCO3 35.3 H Carbon Dioxide 32 H Total Protein 6.2 L Albumin 3.1 L Urine Protein Urine Blood Urine Nitrite 01/15/17 21:00 WBC Hgb Hct RDW Seg Neutrophils % Lymphocytes % Absolute Neutrophils VBG pCO2 VBG HCO3 Carbon Dioxide Total Protein Albumin Urine Protein 30 H Urine Blood SMALL H Urine Nitrite POSITIVE H - EKG Interpretation by Me Additional EKG results interpreted by me: 01/15/17 22:26 EKG is reviewed and interpreted by me. EKG shows sinus rhythm with occasional PACs. Rate is approximately 64 bpm. Patient has a lot of baseline artifact in lead V6 make it difficult to interpret. The remainder of other leads show no evidence of ST segment elevation or depression. AK interval, QRS duration, QTc intervals are within normal range. Old EKG for comparison is from October 20, 2016. Discharge - Discharge Clinical Impression: COPD exacerbation, Hypercapnia Pneumonia Qualifiers: Pneumonia type: due to unspecified organism Laterality: unspecified laterality Lung location: unspecified part of lung Qualified Code(s): J18.9 - Pneumonia, unspecified organism Condition: Stable Disposition: ADMITTED OBSERVATION Admitting Provider: [facility] Admitted: [facility]
[2017-01-15] MEDS ORDERED: LEVOFLOXACIN 750 MG/D5W RTU 750 MG/150 ML RTUPB IV ONE (22:41)
[2017-01-15] MEDS ORDERED: METHYLPREDNISOLONE INJ 125 MG/2 ML SDV IV ONE (22:42)
[2017-01-15] MEDS ORDERED: ALBUTEROL SULFATE 0.083% NEB 2.5 MG/3 ML AMPUL NEB ONE (22:42)
[2017-01-16] MEDS ORDERED: DEXTROSE 50%-WATER 25 GM/50 ML DISP.SYRIN IV PRN ×2 (03:32)
[2017-01-16] MEDS ORDERED: GLUCAGON,HUMAN RECOMB 1 MG INJ IM PRN (03:32)
[2017-01-16] MEDS ORDERED: DEXTROSE 40% GEL 15 GM TUBE PO PRN ×2 (03:32)
[2017-01-16] MEDS ORDERED: METHYLPREDNISOLONE INJ 125 MG/2 ML SDV IV ONE (03:45)
[2017-01-16] MEDS ORDERED: AZITHROMYCIN INJ 500 MG VIAL IV PRN (03:46)
[2017-01-16 03:54] LABS: PROTHROMBIN TIME 15.2 SEC (11.4-15.4)
[2017-01-16 03:55] LABS: PARTIAL THROMBOPLASTIN TIME 37.2 SEC (23.5-35.8)
[2017-01-16] MEDS ORDERED: AZITHROMYCIN 500 MG in DEXTROSE 5%-WATER 250 ML IV ONE (04:00)
[2017-01-16 04:05] LABS: CREATINE KINASE 30 U/L (30-135); LIPASE 14.6 U/L (23-300); MAGNESIUM 1.3 mg/dL (1.6-2.3); PHOSPHORUS 3.9 mg/dL (2.5-4.5)
[2017-01-16 04:07] LABS: AMYLASE < 30 U/L (30-110)
[2017-01-16 04:36] LABS: THYROID STIMULATING HORMONE 0.07 uIU/mL (0.47-4.68)
[2017-01-16] MEDS: NORMAL SALINE 1000 ML 1,000 ML IV PRN ×2 (04:47→12:00)
[2017-01-16 05:45] LABS: ARTERIAL BLOOD BASE EXCESS 5.9 mmol/L; ARTERIAL BLOOD O2 SATURATION 90.2 % (94-98)
--- NOTE | 2017-01-16 07:21 | RADIOLOGY REPORT (SQ) ---
Exam: CT chest without contrast. INDICATION: Pneumonia/COPD. COMPARISON: CR, 01/15/2017. CT, 10/11/2015. CR, 10/09/2015. TECHNIQUE: No contrast, coronal and sagittal reformatted, 477 DLP dose reduction. Limitations: None. FINDINGS: Increased moderate scattered airspace opacities and interstitial markings, mild/moderate bronchiectasis of the lung bases and right upper lobe, moderate coronary arterial calcification, increased mild/moderate lymphadenopathy of the mediastinum includes a 1.6 cm precarinal lymph node compared with 1.3 cm on prior exam, 10/11/2015. Inferior neck, axillae, upper abdomen, and bony skeleton appear otherwise unremarkable. IMPRESSION: Worsened moderate mixed airspace and interstitial markings and moderate mediastinal lymphadenopathy. Differential diagnosis includes pneumonia, pulmonary edema, fibrosis, and/or malignancy. Consider CT/PET evaluation and/or Pulmonary Medicine consultation.
[2017-01-16] MEDS: INSULIN LISPRO 100 UNIT/ML 3 ML VIAL SUBCUT PRN ×3 (08:38→17:01)
[2017-01-16] MEDS: ENOXAPARIN SODIUM INJ 40 MG/0.4 ML DISP.SYRIN SUBCUT SCH (09:08)
[2017-01-16] MEDS: AZTREONAM 1 GM in DEXTROSE 5%-WATER 50 ML IV SCH ×2 (09:21→17:41)
[2017-01-16] MEDS ORDERED: METHYLPREDNISOLONE INJ 125 MG/2 ML SDV IV SCH (14:00)
[2017-01-16] MEDS: IPRATROPIUM/ALBUTEROL 0.5-2.5 MG/3 ML AMPUL NEB PRN (14:01)
--- NOTE | 2017-01-16 21:34 | PDOC H&P ---
History of Present Illness Admission Date/PCP: 01/15/17 23:31 RONAL JOYA History of Present Illness: GABINO ALEXANDER is a 71 year old female, She has a history of chronic obstructive pulmonary disease/pulmonary fibrosis she continues to smoke cigarettes she came to the emergency room last night for evaluation of shortness of breath, congestion, fever. In the emergency room she was evaluated , the hemogram revealed leukocytosis with white cell count of over 17,000. She continues to require non-invasive positive pressure ventilation with BiPAP. I saw the patient in the emergency room she was requiring noninvasive positive pressure ventilation, CT chest was done without contrast ,the chest showed increased moderate scattered AIR space opacities and interstitial markings with mild/moderate bronchiectasis at the lung bases and right upper lobe also found was increased mild to moderate lymphadenopathy of the mediastinum that include 1.3 cm precarinal lymph nodes 1.3 cm on prior examination from 10/11/2015. The ABG on 3 L showed pH 7.39, PCO2 55.8, PO2 60.1 bicarbonate 32.7, the ABG suggests chronic respiratory acidosis but she has increased PCO2 at baseline so clearly this is an acute respiratory acidosis considering the fact that she has increased CO2 at baseline. Past Medical History Cardiac Medical History: Reports: Hypertension, Peripheral Vascular Disease Pulmonary Medical History: Reports: Chronic Obstructive Pulmonary Disease (COPD) , Other - Pulmonary hypertension Endocrine Medical History: Reports: Diabetes Mellitus Type 2, Hypothyroidism Past Surgical History Past Surgical History: Reports: Cholecystectomy, Orthopedic Surgery - L Wrist Social History Smoking Status: Current Every Day Smoker Cigarettes Packs Per Day: 0.5 Frequency of Alcohol Use: None Hx Recreational Drug Use: No Drugs: None Hx Prescription Drug Abuse: No - Advance Directive Resuscitation Status: Full Code Family History Family History: DM, Hypertension Parental Family History Reviewed: Yes Children Family History Reviewed: Yes Sibling(s) Family History Reviewed.: Yes Medication/Allergy Home Medications: Levothyroxine Sodium [Synthroid] 50 mcg PO Q6AM 10/20/16 Levothyroxine Sodium [Synthroid] 200 mcg PO Q6AM 10/20/16 Potassium Chloride [Klor-Con] 20 meq PO DAILY 10/20/16 Albuterol Sulfate [Albuterol Sulfate 2.5mg/3 mL] 2.5 mg NEB RTQ6HP PRN 01/16/17 Albuterol Sulfate [Proair HFA] 2 puff IH Q6HP PRN 01/16/17 Aspirin [Ecotrin 81 mg EC Tablet] 81 mg PO DAILY 01/16/17 Diphenhydramine HCl [Benadryl 25 mg Capsule] 25 mg PO Q12HP PRN 01/16/17 Promethazine HCl [Phenergan 25 mg Tablet] 25 mg PO Q4HP PRN 01/16/17 Allergies/Adverse Reactions: albuterol sulfate [From DuoNeb] Allergy (Verified 10/06/14 22:21) allopurinol [From Zyloprim] Allergy (Verified 10/06/14 22:21) alprazolam [From Xanax] Allergy (Verified 10/06/14 22:21) amitriptyline HCl [From Elavil] Allergy (Verified 10/06/14 22:21) atorvastatin calcium [From Lipitor] Allergy (Verified 10/06/14 22:21) belladonna alkaloids [From Bellergal-S] Allergy (Verified 10/06/14 22:21) bupivacaine [Bupivacaine] Allergy (Verified 10/06/14 22:21) cefuroxime axetil [From Ceftin] Allergy (Verified 10/06/14 22:21) celecoxib [From Celebrex] Allergy (Verified 10/06/14 22:21) cimetidine [From Tagamet] Allergy (Verified 10/06/14 22:21) ciprofloxacin [Ciprofloxacin] Allergy (Verified 10/06/14 22:21) codeine [Codeine] Allergy (Verified 10/06/14 22:21) doxepin HCl [From [place]] Allergy (Verified 10/06/14 22:21) ergotamine tartrate [From Bellergal-S] Allergy (Verified 10/06/14 22:21) fluoxetine HCl [From Prozac] Allergy (Verified 10/06/14 22:21) hydroxyzine HCl [From Atarax] Allergy (Verified 10/06/14 22:21) indigotindisulfonic acid [From Indigo [place]] Allergy (Verified 10/11/15 07:27) ipratropium bromide [From DuoNeb] Allergy (Verified 10/06/14 22:21) lemon oil Allergy (Verified 10/06/14 22:21) malathion Allergy (Verified 10/06/14 22:21) mefenamic acid Allergy (Verified 10/06/14 22:21) metformin HCl [From Glucophage] Allergy (Verified 10/06/14 22:21) metoclopramide HCl [From Reglan] Allergy (Verified 10/06/14 22:21) Milk Containing Products Allergy (Verified 10/06/14 22:21) morphine Allergy (Verified 10/06/14 22:21) naproxen sodium [From Anaprox] Allergy (Verified 10/06/14 22:21) nefazodone HCl [From Serzone] Allergy (Verified 10/06/14 22:21) peanut Allergy (Verified 10/06/14 22:21) phenobarbital [From Bellergal-S] Allergy (Verified 10/06/14 22:21) phenylephrine tannate [From [place]] Allergy (Verified 10/06/14 22:21) pyrilamine tannate [From [place] CT] Allergy (Verified 10/06/14 22:21) sertraline HCl [From Zoloft] Allergy (Verified 10/06/14 22:21) sucralfate [From Carafate] Allergy (Verified 10/06/14 22:21) tolterodine tartrate [From Detrol] Allergy (Verified 10/06/14 22:21) tramadol Allergy (Verified 10/06/14 22:21) trazodone HCl [From Desyrel] Allergy (Verified 10/06/14 22:21) my-e Allergy (Uncoded 10/06/14 22:21) renuzil Allergy (Uncoded 10/06/14 22:21) surgical steel Allergy (Uncoded 10/06/14 22:21) Review of Systems Constitutional: ABSENT: chills, fever(s), headache(s), weight gain, weight loss Eyes: ABSENT: visual disturbances Ears: ABSENT: hearing changes Cardiovascular: PRESENT: dyspnea on exertion. ABSENT: as per HPI, chest pain, edema, orthropnea, palpitations, other Respiratory: PRESENT: cough Gastrointestinal: ABSENT: abdominal pain, constipation, diarrhea, hematemesis, hematochezia, nausea, vomiting Genitourinary: ABSENT: dysuria, hematuria Musculoskeletal: ABSENT: joint swelling Integumentary: ABSENT: rash, wounds Neurological: ABSENT: abnormal gait, abnormal speech, confusion, dizziness, focal weakness, syncope Psychiatric: ABSENT: anxiety, depression, homidical ideation, suicidal ideation Endocrine: ABSENT: cold intolerance, heat intolerance, menstrual abnormalities, polydipsia, polyuria Hematologic/Lymphatic: ABSENT: easy bleeding, easy bruising, lymphadenopathy Physical Exam Vital Signs: Temp Pulse Resp BP Pulse Ox 98.1 F 76 24 H 144/61 H 95 01/16/17 07:19 01/16/17 14:01 01/16/17 19:32 01/16/17 19:32 01/16/17 19:32 General appearance: PRESENT: severe distress Head exam: PRESENT: atraumatic, normocephalic Eye exam: PRESENT: PERRLA Neck exam: PRESENT: full ROM Respiratory exam: PRESENT: wheezes Cardiovascular exam: PRESENT: RRR, +S1, +S2 Pulses: PRESENT: normal dorsalis pedis pul, +2 pedal pulses bilateral Vascular exam: PRESENT: normal capillary refill GI/Abdominal exam: PRESENT: normal bowel sounds, soft Rectal exam: PRESENT: deferred Neurological exam: PRESENT: alert, awake, oriented to person, oriented to place , oriented to time, oriented to situation, CN II-XII grossly intact Psychiatric exam: PRESENT: appropriate affect, normal mood Skin exam: PRESENT: dry, intact, warm Results Laboratory Results: 01/16/17 01/16/17 01/16/17 03:35 03:35 03:35 Carbonic Acid HCO3/H2CO3 Ratio ABG pH ABG pCO2 ABG pO2 ABG HCO3 ABG O2 Saturation ABG Base Excess FiO2 Phosphorus 3.9 Magnesium 1.3 L Ammonia 13.9 Amylase < 30 L Lipase 14.6 L TSH 0.07 L Free T4 1.95 01/16/17 05:00 Carbonic Acid 1.68 H HCO3/H2CO3 Ratio 19:1 ABG pH 7.39 ABG pCO2 55.8 H ABG pO2 60.1 L ABG HCO3 32.7 H ABG O2 Saturation 90.2 L ABG Base Excess 5.9 FiO2 5L Phosphorus Magnesium Ammonia Amylase Lipase TSH Free T4 01/16/17 01/16/17 01/16/17 03:35 03:35 10:42 Creatine Kinase 30 25 L Troponin I < 0.012 01/16/17 01/16/17 01/16/17 10:42 16:49 16:49 Creatine Kinase 27 L Troponin I < 0.012 < 0.012 Impressions: Chest X-Ray 01/15/17 20:02 IMPRESSION: Chronic appearing changes are again identified. There are scattered confluent densities which I cannot exclude as an acute process superimposed on the chronic underlying changes. There is some blunting of the costophrenic angles which I cannot exclude is tiny pleural effusions. Other findings as noted above Chest CT 01/16/17 00:00 IMPRESSION: Worsened moderate mixed airspace and interstitial markings and moderate mediastinal lymphadenopathy. Differential diagnosis includes pneumonia, pulmonary edema, fibrosis, and/or malignancy. Consider CT/PET evaluation and/or Pulmonary Medicine consultation. Assessment & Plan - Diagnosis (1) Acute respiratory failure with hypercapnia Is this a current diagnosis for this admission?: Yes Plan: She has acute respiratory failure with hypercapnia she requires noninvasive positive pressure ventilation with BiPAP (2) Pneumonia Qualifiers: Pneumonia type: due to unspecified organism Laterality: unspecified laterality Lung location: unspecified part of lung Qualified Code(s): J18.9 - Pneumonia, unspecified organism Is this a current diagnosis for this admission?: Yes Plan: CT chest without contrast showed scattered airspace opacities, the differential diagnoses include pneumonia, fibrosis, pulmonary edema because she has leukocytosis I am more inclined to assume this is more likely to be pneumonia, on auscultation she is wheezing but I am reluctant at this point to initiate Solu-Medrol, I will obtain consultation from pulmonary in light of the fact that malignancy was also considered as a potential etiology of the airspace disease as indicated in the radiology report
[2017-01-16] MEDS ORDERED: INFLUENZA ADLT QUAD (36MOS+) 2017-18 VAC 0.5 ML SYR IM PRN (22:00)
[2017-01-17] MEDS: AZTREONAM 1 GM in DEXTROSE 5%-WATER 50 ML IV SCH ×3 (02:43→17:31)
[2017-01-17 04:49] LABS: ALANINE AMINOTRANSFERASE 25 U/L (9-52); ALBUMIN 2.7 g/dL (3.5-5.0); ALKALINE PHOSPHATASE 89 U/L (38-126); ANION GAP 10 (5-19); ASPARTATE AMINO TRANSFERASE 11 U/L (14-36); BILIRUBIN,DIRECT 0.3 mg/dL (0.0-0.4); BILIRUBIN,TOTAL 0.3 mg/dL (0.2-1.3); BLOOD UREA NITROGEN 21 mg/dL (7-20); CALCIUM 8.5 mg/dL (8.4-10.2); CARBON DIOXIDE 31 mmol/L (22-30); CHLORIDE 101 mmol/L (98-107); CHOLESTEROL 94.41 mg/dL (0-200); CREATININE RESULT 0.92 mg/dL (0.52-1.25); Direct HDL 30 mg/dL (>40); GLUCOSE 207 mg/dL (75-110); SODIUM 142.2 mmol/L (137-145); TOTAL PROTEIN 5.6 g/dL (6.3-8.2); TRIGLYCERIDES 116 mg/dL (<150)
[2017-01-17 04:57] LABS: ABSOLUTE LYMPHOCYTES (AUTO) 0.8 10^3/uL (0.5-4.7); ABSOLUTE MONOCYTES (AUTO) 0.3 10^3/uL (0.1-1.4); ABSOLUTE NEUT (AUTO) 14.1 10^3/uL (1.7-8.2); HEMATOCRIT 31.8 % (36.0-47.0); HEMOGLOBIN 10.5 g/dL (12.0-15.5); HGB HCT DIFFERENCE -0.3; LYMPHOCYTES % (AUTO) 5.4 % (13-45); MEAN CORPUSCULAR HEMOGLOBIN 29.9 pg (27.0-33.4); MEAN CORPUSCULAR HGB CONC 33.1 g/dL (32.0-36.0); MEAN CORPUSCULAR VOLUME 90 fl (80-97); MONOCYTES % (AUTO) 2.2 % (3-13); RED BLOOD COUNT 3.51 10^6/uL (3.72-5.28); RED CELL DISTRIBUTION WIDTH 16.4 % (11.5-14.0); SEGMENTED NEUTROPHILS % (AUTO) 92.4 % (42-78); WHITE BLOOD COUNT 15.3 10^3/uL (4.0-10.5)
[2017-01-17 05:00] LABS: DIRECT LDL 47 mg/dL (<100)
[2017-01-17] MEDS: IPRATROPIUM/ALBUTEROL 0.5-2.5 MG/3 ML AMPUL NEB PRN ×3 (05:54→22:30)
[2017-01-17] MEDS: ENOXAPARIN SODIUM INJ 40 MG/0.4 ML DISP.SYRIN SUBCUT SCH (09:27)
[2017-01-17] MEDS ORDERED: AZITHROMYCIN 500 MG in DEXTROSE 5%-WATER 250 ML IV SCH (10:00)
[2017-01-17] MEDS: AZITHROMYCIN 500 MG in DEXTROSE 5%-WATER 250 ML IV SCH (10:32)
[2017-01-17] MEDS: INSULIN LISPRO 100 UNIT/ML 3 ML VIAL SUBCUT PRN (12:24)
--- NOTE | 2017-01-17 20:30 | PDOC PROGRESS REPORT ---
Subjective Progress Note for:: 01/17/17 Subjective:: Patient was seen by the bedside, she was seen today by pulmonary, she continues to be short of breath, the urine culture grew gram-negative rods with significant colony count. Reason For Visit: ACUTE HYPERCAPNIC RESPIRATORY FAILURE,ACUTE COPD Physical Exam Vital Signs: Temp Pulse Resp BP Pulse Ox 98.6 F 120 H 18 111/68 83 L 01/17/17 15:54 01/17/17 15:54 01/17/17 15:54 01/17/17 15:54 01/17/17 15:54 Intake & Output 01/16/17 01/17/17 01/18/17 06:59 06:59 06:59 Intake Total 850 2825 Output Total 1 Balance 849 2825 Weight 73.8 kg General appearance: PRESENT: mild distress Head exam: PRESENT: atraumatic, normocephalic Eye exam: PRESENT: PERRLA. ABSENT: scleral icterus Neck exam: PRESENT: full ROM Respiratory exam: PRESENT: wheezes Cardiovascular exam: PRESENT: RRR, +S1, +S2. ABSENT: diastolic murmur, rubs, systolic murmur Vascular exam: PRESENT: normal capillary refill GI/Abdominal exam: PRESENT: normal bowel sounds, soft Rectal exam: PRESENT: deferred Neurological exam: PRESENT: alert. ABSENT: motor sensory deficit Psychiatric exam: ABSENT: homicidal ideation, suicidal ideation Skin exam: PRESENT: dry, intact, warm. ABSENT: cyanosis, rash Results Laboratory Results: 01/17/17 03:58 01/17/17 03:58 01/17/17 01/17/17 03:58 03:58 WBC 15.3 H RBC 3.51 L Hgb 10.5 L Hct 31.8 L MCV 90 MCH 29.9 MCHC 33.1 RDW 16.4 H Plt Count 291 Seg Neutrophils % 92.4 H Lymphocytes % 5.4 L Monocytes % 2.2 L Eosinophils % 0.0 Basophils % 0.0 Absolute Neutrophils 14.1 H Absolute Lymphocytes 0.8 Absolute Monocytes 0.3 Absolute Eosinophils 0.0 Absolute Basophils 0.0 Sodium 142.2 Potassium 5.0 Chloride 101 Carbon Dioxide 31 H Anion Gap 10 BUN 21 H Creatinine 0.92 Est GFR ( Amer) > 60 Est GFR (Non-Af Amer) > 60 Glucose 207 H Calcium 8.5 Total Bilirubin 0.3 AST 11 L ALT 25 Alkaline Phosphatase 89 Total Protein 5.6 L Albumin 2.7 L Triglycerides 116 Cholesterol 94.41 LDL Cholesterol Direct 47 VLDL Cholesterol 23.0 HDL Cholesterol 30 L 01/16/17 01/16/17 01/16/17 03:35 03:35 10:42 Creatine Kinase 30 25 L Troponin I < 0.012 01/16/17 01/16/17 01/16/17 10:42 16:49 16:49 Creatine Kinase 27 L Troponin I < 0.012 < 0.012 Impressions: Chest X-Ray 01/15/17 20:02 IMPRESSION: Chronic appearing changes are again identified. There are scattered confluent densities which I cannot exclude as an acute process superimposed on the chronic underlying changes. There is some blunting of the costophrenic angles which I cannot exclude is tiny pleural effusions. Other findings as noted above Chest CT 01/16/17 00:00 IMPRESSION: Worsened moderate mixed airspace and interstitial markings and moderate mediastinal lymphadenopathy. Differential diagnosis includes pneumonia, pulmonary edema, fibrosis, and/or malignancy. Consider CT/PET evaluation and/or Pulmonary Medicine consultation. Assessment & Plan - Diagnosis (1) Acute respiratory failure with hypercapnia Is this a current diagnosis for this admission?: Yes Plan: She continues to require noninvasive positive pressure ventilation with BiPAP (2) Pneumonia Qualifiers: Pneumonia type: due to unspecified organism Laterality: unspecified laterality Lung location: unspecified part of lung Qualified Code(s): J18.9 - Pneumonia, unspecified organism Is this a current diagnosis for this admission?: Yes Plan: She will continue IV antibiotic, she is on intravenous aztreonam, she has penicillin allergy, she is also on intravenous azithromycin and also as needed bronchodilators. Though she is wheezing will continue to avoid Solu-Medrol because of the pneumonia process. (3) Urinary tract infection Qualifiers: Urinary tract infection type: site unspecified Hematuria presence: without hematuria Qualified Code(s): N39.0 - Urinary tract infection, site not specified Is this a current diagnosis for this admission?: Yes
[2017-01-17 23:55] LABS: URINE CREATININE 40.3 mg/dL (15-278); URINE PROTEIN 21.4 mg/dL (<12)
[2017-01-18] MEDS: AZTREONAM 1 GM in DEXTROSE 5%-WATER 50 ML IV SCH ×3 (03:33→18:28)
[2017-01-18 04:52] LABS: HEMATOCRIT 30.7 % (36.0-47.0); HGB HCT DIFFERENCE -0.7; MEAN CORPUSCULAR HEMOGLOBIN 29.6 pg (27.0-33.4); MEAN CORPUSCULAR HGB CONC 32.6 g/dL (32.0-36.0); MEAN CORPUSCULAR VOLUME 91 fl (80-97); RED BLOOD COUNT 3.37 10^6/uL (3.72-5.28); RED CELL DISTRIBUTION WIDTH 16.5 % (11.5-14.0); WHITE BLOOD COUNT 14.2 10^3/uL (4.0-10.5)
[2017-01-18 05:31] LABS: ANISOCYTOSIS 1+; BAND NEUTROPHILS % (MANUAL) 1 % (3-5); BASOPHILS % (MANUAL) 0 % (0-2); EOSINOPHILS % (MANUAL) 0 % (0-6); LYMPHOCYTES % (MANUAL) 13 % (13-45); OVALOCYTES SLIGHT; POIKILOCYTOSIS SLIGHT; TEAR DROP CELLS SLIGHT; TOTAL CELLS COUNTED 100; TOXIC GRANULATION 1+
[2017-01-18] MEDS: ENOXAPARIN SODIUM INJ 40 MG/0.4 ML DISP.SYRIN SUBCUT SCH (09:41)
[2017-01-18] MEDS: IBUPROFEN 400 MG TABLET PO PRN ×2 (10:28→20:37)
[2017-01-18] MEDS: AZITHROMYCIN 500 MG in DEXTROSE 5%-WATER 250 ML IV SCH (10:29)
[2017-01-18] MEDS: IPRATROPIUM/ALBUTEROL 0.5-2.5 MG/3 ML AMPUL NEB PRN ×2 (10:36→22:11)
--- NOTE | 2017-01-18 14:29 | PDOC PROGRESS REPORT ---
Subjective Progress Note for:: 01/18/17 Subjective:: I have a sinus headache Reason For Visit: ACUTE HYPERCAPNIC RESPIRATORY FAILURE,ACUTE COPD Physical Exam Vital Signs: Temp Pulse Resp BP Pulse Ox 98.7 F 63 18 109/52 L 90 L 01/18/17 11:57 01/18/17 11:57 01/18/17 11:57 01/18/17 11:57 01/18/17 11:57 Intake & Output 01/17/17 01/18/17 01/19/17 06:59 06:59 06:59 Intake Total 850 4169 Output Total 1 Balance 849 4169 Weight 73.8 kg 77.7 kg General appearance: PRESENT: no acute distress, cooperative, disheveled. ABSENT : hard of hearing, mild distress, morbidly obese, severe distress, well- developed Head exam: PRESENT: atraumatic, normocephalic Eye exam: PRESENT: conjunctiva pale, EOMI. ABSENT: conjunctival injection, conjunctiva pink, nystagmus, periorbital swelling, scleral icterus Mouth exam: PRESENT: dry mucosa, neck supple, tongue midline. ABSENT: laceration, moist Neck exam: ABSENT: carotid bruit, JVD, lymphadenopathy, thyromegaly, tracheal deviation, tracheostomy Respiratory exam: PRESENT: decreased breath sounds, prolonged expiratory phas, rhonchi, symmetrical, unlabored, wheezes. ABSENT: accessory muscle use, chest wall tenderness, clear to auscultation oh, crackles, rales, retraction, stridor , tachypnea Cardiovascular exam: PRESENT: RRR, +S1, +S2. ABSENT: irregular rhythm, rubs Pulses: PRESENT: normal radial pulses GI/Abdominal exam: PRESENT: normal bowel sounds, soft. ABSENT: distended, guarding, mass, organolmegaly, rebound, tenderness Extremities exam: ABSENT: calf tenderness, clubbing, joint swelling Musculoskeletal exam: ABSENT: deformity, dislocation, tenderness Neurological exam: PRESENT: alert, awake Psychiatric exam: PRESENT: anxious Skin exam: PRESENT: dry, warm Results Laboratory Results: 01/18/17 04:11 01/17/17 03:58 01/18/17 04:11 WBC 14.2 H RBC 3.37 L Hgb 10.0 L Hct 30.7 L MCV 91 MCH 29.6 MCHC 32.6 RDW 16.5 H Plt Count 293 Seg Neutrophils % Not Reportable Lymphocytes % Not Reportable Monocytes % Not Reportable Eosinophils % Not Reportable Basophils % Not Reportable Absolute Neutrophils Not Reportable Absolute Lymphocytes Not Reportable Absolute Monocytes Not Reportable Absolute Eosinophils Not Reportable Absolute Basophils Not Reportable 01/16/17 01/16/17 01/16/17 03:35 03:35 10:42 Creatine Kinase 30 25 L Troponin I < 0.012 01/16/17 01/16/17 01/16/17 10:42 16:49 16:49 Creatine Kinase 27 L Troponin I < 0.012 < 0.012 Impressions: Chest X-Ray 01/15/17 20:02 IMPRESSION: Chronic appearing changes are again identified. There are scattered confluent densities which I cannot exclude as an acute process superimposed on the chronic underlying changes. There is some blunting of the costophrenic angles which I cannot exclude is tiny pleural effusions. Other findings as noted above Chest CT 01/16/17 00:00 IMPRESSION: Worsened moderate mixed airspace and interstitial markings and moderate mediastinal lymphadenopathy. Differential diagnosis includes pneumonia, pulmonary edema, fibrosis, and/or malignancy. Consider CT/PET evaluation and/or Pulmonary Medicine consultation. Assessment & Plan - Diagnosis (1) Acute respiratory failure with hypercapnia Is this a current diagnosis for this admission?: Yes Plan: Significant improvement will check ABG (2) COPD exacerbation Is this a current diagnosis for this admission?: Yes Plan: Increased air movement over the last 24 hours (3) Pneumonia Qualifiers: Pneumonia type: due to unspecified organism Laterality: unspecified laterality Lung location: unspecified part of lung Qualified Code(s): J18.9 - Pneumonia, unspecified organism Is this a current diagnosis for this admission?: Yes Plan: Labs- All tests 24 hr 01/18/17 04:11 WBC 14.2 H Seg Neuts % (Manual) 79 H Band Neutrophils % 1 L 01/17/17 10:55 Gram Stain - Preliminary Sputum Sputum Culture - Preliminary 01/15/17 21:00 Urine Culture - Preliminary Clean Catch Midstream Escherichia Coli Gram Negative Rods#2 01/15/17 21:00 Blood Culture - Preliminary Blood NO GROWTH AFTER 48 HOURS 01/15/17 20:21 Blood Culture - Preliminary Blood NO GROWTH AFTER 48 HOURS
--- NOTE | 2017-01-18 19:18 | PDOC PROGRESS REPORT ---
Subjective Progress Note for:: 01/18/17 Subjective:: She was seen by the bedside, she complained of a headache, she was also seen by pulmonary Reason For Visit: ACUTE HYPERCAPNIC RESPIRATORY FAILURE,ACUTE COPD Physical Exam Vital Signs: Temp Pulse Resp BP Pulse Ox 98.9 F 43 L 20 152/87 H 91 L 01/18/17 15:55 01/18/17 15:55 01/18/17 15:55 01/18/17 15:55 01/18/17 15:55 Intake & Output 01/17/17 01/18/17 01/19/17 06:59 06:59 06:59 Intake Total 850 4169 975 Output Total 1 Balance 849 4169 975 Weight 73.8 kg 77.7 kg General appearance: PRESENT: no acute distress Eye exam: PRESENT: PERRLA Respiratory exam: PRESENT: crackles, rales Cardiovascular exam: PRESENT: +S1, +S2 GI/Abdominal exam: PRESENT: soft Neurological exam: PRESENT: alert, CN II-XII grossly intact Results Laboratory Results: 01/18/17 04:11 01/17/17 03:58 01/18/17 04:11 WBC 14.2 H RBC 3.37 L Hgb 10.0 L Hct 30.7 L MCV 91 MCH 29.6 MCHC 32.6 RDW 16.5 H Plt Count 293 Seg Neutrophils % Not Reportable Lymphocytes % Not Reportable Monocytes % Not Reportable Eosinophils % Not Reportable Basophils % Not Reportable Absolute Neutrophils Not Reportable Absolute Lymphocytes Not Reportable Absolute Monocytes Not Reportable Absolute Eosinophils Not Reportable Absolute Basophils Not Reportable 01/16/17 01/16/17 01/16/17 03:35 03:35 10:42 Creatine Kinase 30 25 L Troponin I < 0.012 01/16/17 01/16/17 01/16/17 10:42 16:49 16:49 Creatine Kinase 27 L Troponin I < 0.012 < 0.012 Impressions: Chest X-Ray 01/15/17 20:02 IMPRESSION: Chronic appearing changes are again identified. There are scattered confluent densities which I cannot exclude as an acute process superimposed on the chronic underlying changes. There is some blunting of the costophrenic angles which I cannot exclude is tiny pleural effusions. Other findings as noted above Chest CT 01/16/17 00:00 IMPRESSION: Worsened moderate mixed airspace and interstitial markings and moderate mediastinal lymphadenopathy. Differential diagnosis includes pneumonia, pulmonary edema, fibrosis, and/or malignancy. Consider CT/PET evaluation and/or Pulmonary Medicine consultation. Assessment & Plan - Diagnosis (1) Acute respiratory failure with hypercapnia Is this a current diagnosis for this admission?: Yes (2) Pneumonia Qualifiers: Pneumonia type: due to unspecified organism Laterality: unspecified laterality Lung location: unspecified part of lung Qualified Code(s): J18.9 - Pneumonia, unspecified organism Is this a current diagnosis for this admission?: Yes (3) Urinary tract infection Qualifiers: Urinary tract infection type: site unspecified Hematuria presence: without hematuria Qualified Code(s): N39.0 - Urinary tract infection, site not specified Is this a current diagnosis for this admission?: Yes (4) E. coli urinary tract infection Is this a current diagnosis for this admission?: Yes - Plan Summary Plan Summary: She will continue IV antibiotic with azithromycin and aztreonam
[2017-01-18] MEDS: INSULIN LISPRO 100 UNIT/ML 3 ML VIAL SUBCUT PRN (22:27)
[2017-01-18] MEDS: NORMAL SALINE 1000 ML 1,000 ML IV PRN (22:32)
[2017-01-19] MEDS: AZTREONAM 1 GM in DEXTROSE 5%-WATER 50 ML IV SCH ×3 (01:39→17:32)
[2017-01-19] MEDS: IPRATROPIUM/ALBUTEROL 0.5-2.5 MG/3 ML AMPUL NEB PRN ×3 (04:36→21:36)
[2017-01-19 05:47] LABS: HEMATOCRIT 31.2 % (36.0-47.0); HEMOGLOBIN 10.2 g/dL (12.0-15.5); HGB HCT DIFFERENCE -0.6; MEAN CORPUSCULAR HEMOGLOBIN 29.8 pg (27.0-33.4); MEAN CORPUSCULAR HGB CONC 32.7 g/dL (32.0-36.0); MEAN CORPUSCULAR VOLUME 91 fl (80-97); RED BLOOD COUNT 3.43 10^6/uL (3.72-5.28); RED CELL DISTRIBUTION WIDTH 15.9 % (11.5-14.0); WHITE BLOOD COUNT 10.3 10^3/uL (4.0-10.5)
[2017-01-19 06:10] LABS: BAND NEUTROPHILS % (MANUAL) 4 % (3-5); BASOPHILS % (MANUAL) 0 % (0-2); EOSINOPHILS % (MANUAL) 0 % (0-6); LYMPHOCYTES % (MANUAL) 22 % (13-45); TOTAL CELLS COUNTED 100
[2017-01-19 06:11] LABS: ANISOCYTOSIS 1+; TOXIC GRANULATION SLIGHT
[2017-01-19] MEDS: ENOXAPARIN SODIUM INJ 40 MG/0.4 ML DISP.SYRIN SUBCUT SCH (09:49)
[2017-01-19] MEDS: AZITHROMYCIN 500 MG in DEXTROSE 5%-WATER 250 ML IV SCH (11:21)
--- NOTE | 2017-01-19 12:03 | PDOC PROGRESS REPORT ---
Subjective Progress Note for:: 01/19/17 Subjective:: my headache is better Reason For Visit: ACUTE HYPERCAPNIC RESPIRATORY FAILURE,ACUTE COPD Physical Exam Vital Signs: Temp Pulse Resp BP Pulse Ox 98.7 F 71 18 147/63 H 96 01/19/17 07:05 01/19/17 07:05 01/19/17 07:05 01/19/17 07:05 01/19/17 07:05 Intake & Output 01/18/17 01/19/17 01/20/17 06:59 06:59 06:59 Intake Total 4169 2225 Balance 4169 2225 Weight 77.7 kg General appearance: PRESENT: no acute distress, cooperative, disheveled, well- developed, well-nourished. ABSENT: hard of hearing, mild distress, morbidly obese, obese, severe distress, thin Head exam: ABSENT: atraumatic, normocephalic Eye exam: PRESENT: conjunctiva pale, EOMI. ABSENT: conjunctival injection, conjunctiva pink, nystagmus, periorbital swelling, scleral icterus Mouth exam: PRESENT: dry mucosa, neck supple, tongue midline. ABSENT: laceration, moist Teeth exam: PRESENT: edentulous Neck exam: ABSENT: carotid bruit, JVD, lymphadenopathy, thyromegaly, tracheal deviation, tracheostomy Respiratory exam: PRESENT: decreased breath sounds, prolonged expiratory phas, rhonchi, stridor, symmetrical, unlabored. ABSENT: accessory muscle use, chest wall tenderness, clear to auscultation oh, crackles, rales, retraction, tachypnea, wheezes Cardiovascular exam: PRESENT: RRR, +S1, +S2. ABSENT: rubs Pulses: PRESENT: normal radial pulses GI/Abdominal exam: PRESENT: normal bowel sounds, soft. ABSENT: distended, guarding, mass, organolmegaly, rebound, tenderness Extremities exam: ABSENT: calf tenderness, clubbing, joint swelling Musculoskeletal exam: ABSENT: deformity, dislocation Neurological exam: PRESENT: alert, awake Skin exam: PRESENT: dry, warm Results Laboratory Results: 01/19/17 04:50 01/17/17 03:58 01/19/17 04:50 WBC 10.3 RBC 3.43 L Hgb 10.2 L Hct 31.2 L MCV 91 MCH 29.8 MCHC 32.7 RDW 15.9 H Plt Count 292 Seg Neutrophils % Not Reportable Lymphocytes % Not Reportable Monocytes % Not Reportable Eosinophils % Not Reportable Basophils % Not Reportable Absolute Neutrophils Not Reportable Absolute Lymphocytes Not Reportable Absolute Monocytes Not Reportable Absolute Eosinophils Not Reportable Absolute Basophils Not Reportable 01/17/17 10:55 Sputum Gram Stain - Final 01/17/17 10:55 Sputum Sputum Culture - Final NORMAL TERESA 01/16/17 01/16/17 01/16/17 03:35 03:35 10:42 Creatine Kinase 30 25 L Troponin I < 0.012 01/16/17 01/16/17 01/16/17 10:42 16:49 16:49 Creatine Kinase 27 L Troponin I < 0.012 < 0.012 Impressions: Chest X-Ray 01/15/17 20:02 IMPRESSION: Chronic appearing changes are again identified. There are scattered confluent densities which I cannot exclude as an acute process superimposed on the chronic underlying changes. There is some blunting of the costophrenic angles which I cannot exclude is tiny pleural effusions. Other findings as noted above Chest CT 01/16/17 00:00 IMPRESSION: Worsened moderate mixed airspace and interstitial markings and moderate mediastinal lymphadenopathy. Differential diagnosis includes pneumonia, pulmonary edema, fibrosis, and/or malignancy. Consider CT/PET evaluation and/or Pulmonary Medicine consultation. Assessment & Plan - Diagnosis (1) Acute respiratory failure with hypercapnia Is this a current diagnosis for this admission?: Yes Plan: Labs- All tests 24 hr 01/15/17 01/16/17 21:00 05:00 ABG pCO2 55.8 H ABG pO2 60.1 L VBG pCO2 68.2 H* FiO2 5L Continue supplemental oxygen and ventilatory support Generic Name Dose Route Start Last Admin Trade Name Freq PRN Reason Stop Dose Admin Albuterol/Ipratropium 3 ml 01/16/17 03:24 01/18/17 10:36 Duoneb 3 Ml Ampul NEB 02/15/17 03:23 3 ml [id number] PRN (2) COPD exacerbation Is this a current diagnosis for this admission?: Yes Plan: Increased air movement over the last 24 hours,looks better
--- NOTE | 2017-01-19 12:04 | PDOC CONSULTATION ---
Consultation Consult Date: 01/17/17 Attending physician:: JEN MAE Consult reason:: Dyspnea History of Present Illness Admission Date/PCP: 01/15/17 23:31 RONALDARÍO JOYA History of Present Illness: GABINO ALEXANDER is a 71 year old female.Complaining of increasing shortness of breath and cough productive of yellow phlegm.she denies hemoptysis her PPD status is unknown she has no history of chronic lung disease as a child or adolescent she admits to exposure to passive smoke as a child as well as an adult. she herself has smoked one half packs a day for 40 years. She is not aware of any exposure to potential respiratory toxins in her occupation. she has 1 dog and no recent travel. she denies angina-like chest pain, sleeps on 3 pillows, occasional PND, occasional nocturnal cough, and occasional edema. she admits to snoring but denies restless sleep,admits to nocturia 3, denies unrestful sleep or excessive daytime. somnolence. Past Medical History Cardiac Medical History: Reports: Congestive Heart Failure, Hypertension, Peripheral Vascular Disease Pulmonary Medical History: Reports: Chronic Obstructive Pulmonary Disease (COPD) , Other - Pulmonary hypertension Endocrine Medical History: Reports: Diabetes Mellitus Type 2, Hypothyroidism GI Medical History: Denies: Crohn's Disease, Ulcerative Colitis Musculoskeltal Medical History: Denies: Gout Skin Medical History: Denies: Eczema, Psoriasis Psychiatric Medical History: Denies: Alcohol Dependency, Bipolar Disorder, Personality Disorder, Schizoaffective Disorder Traumatic Medical History: Denies: Traumatic Brain Injury Hematology: Denies: Sickle Cell Disease, Bleeding Tendencies Infectious Medical History: Denies: Hepatitis B, Hepatitis C Past Surgical History Past Surgical History: Reports: Cholecystectomy, Orthopedic Surgery - L Wrist Social History Information Source: Patient, [facility] Records Smoking Status: Current Every Day Smoker Cigarettes Packs Per Day: 1.5 Number of Years Smokin Passive smoke exposure as: Both Frequency of Alcohol Use: None Hx Recreational Drug Use: No Drugs: None Hx Prescription Drug Abuse: No Do you have pets?: Yes Have you had any respiratory illnesses as a child?: No Have you been exposed to any sick contacts recently?: No Have you had any recent respiratory illnesses?: No Have you travelled outside of [place] in the past 12 months?: No - Advance Directive Resuscitation Status: Full Code Family History Family History: CAD, DM, Hypertension Parental Family History Reviewed: Yes Children Family History Reviewed: Yes Sibling(s) Family History Reviewed.: Yes Medication/Allergy Home Medications: Levothyroxine Sodium [Synthroid] 50 mcg PO Q6AM 10/20/16 Levothyroxine Sodium [Synthroid] 200 mcg PO Q6AM 10/20/16 Potassium Chloride [Klor-Con] 20 meq PO DAILY 10/20/16 Albuterol Sulfate [Albuterol Sulfate 2.5mg/3 mL] 2.5 mg NEB RTQ6HP PRN 01/16/17 Albuterol Sulfate [Proair HFA] 2 puff IH Q6HP PRN 01/16/17 Aspirin [Ecotrin 81 mg EC Tablet] 81 mg PO DAILY 01/16/17 Diphenhydramine HCl [Benadryl 25 mg Capsule] 25 mg PO Q12HP PRN 01/16/17 Promethazine HCl [Phenergan 25 mg Tablet] 25 mg PO Q4HP PRN 01/16/17 Allergies/Adverse Reactions: albuterol sulfate [From DuoNeb] Allergy (Verified 10/06/14 22:21) allopurinol [From Zyloprim] Allergy (Verified 10/06/14 22:21) alprazolam [From Xanax] Allergy (Verified 10/06/14 22:21) amitriptyline HCl [From Elavil] Allergy (Verified 10/06/14 22:21) atorvastatin calcium [From Lipitor] Allergy (Verified 10/06/14 22:21) belladonna alkaloids [From Bellergal-S] Allergy (Verified 10/06/14 22:21) bupivacaine [Bupivacaine] Allergy (Verified 10/06/14 22:21) cefuroxime axetil [From Ceftin] Allergy (Verified 10/06/14 22:21) celecoxib [From Celebrex] Allergy (Verified 10/06/14 22:21) cimetidine [From Tagamet] Allergy (Verified 10/06/14 22:21) ciprofloxacin [Ciprofloxacin] Allergy (Verified 10/06/14 22:21) codeine [Codeine] Allergy (Verified 10/06/14 22:21) doxepin HCl [From [place]] Allergy (Verified 10/06/14 22:21) ergotamine tartrate [From Bellergal-S] Allergy (Verified 10/06/14 22:21) fluoxetine HCl [From Prozac] Allergy (Verified 10/06/14 22:21) hydroxyzine HCl [From Atarax] Allergy (Verified 10/06/14 22:21) indigotindisulfonic acid [From [place]] Allergy (Verified 10/11/15 07:27) ipratropium bromide [From DuoNeb] Allergy (Verified 10/06/14 22:21) lemon oil Allergy (Verified 10/06/14 22:21) malathion Allergy (Verified 10/06/14 22:21) mefenamic acid Allergy (Verified 10/06/14 22:21) metformin HCl [From Glucophage] Allergy (Verified 10/06/14 22:21) metoclopramide HCl [From Reglan] Allergy (Verified 10/06/14 22:21) Milk Containing Products Allergy (Verified 10/06/14 22:21) morphine Allergy (Verified 10/06/14 22:21) naproxen sodium [From Anaprox] Allergy (Verified 10/06/14 22:21) nefazodone HCl [From Serzone] Allergy (Verified 10/06/14 22:21) peanut Allergy (Verified 10/06/14 22:21) phenobarbital [From Bellergal-S] Allergy (Verified 10/06/14 22:21) phenylephrine tannate [From [place]] Allergy (Verified 10/06/14 22:21) pyrilamine tannate [From [place] CT] Allergy (Verified 10/06/14 22:21) sertraline HCl [From Zoloft] Allergy (Verified 10/06/14 22:21) sucralfate [From Carafate] Allergy (Verified 10/06/14 22:21) tolterodine tartrate [From Detrol] Allergy (Verified 10/06/14 22:21) tramadol Allergy (Verified 10/06/14 22:21) trazodone HCl [From Desyrel] Allergy (Verified 10/06/14 22:21) my-e Allergy (Uncoded 10/06/14 22:21) renuzil Allergy (Uncoded 10/06/14 22:21) surgical steel Allergy (Uncoded 08/25/15 22:21) Review of Systems Constitutional: PRESENT: chills, fever(s). ABSENT: anorexia, fatigue, headache( s), night sweats, weakness Eyes: ABSENT: visual disturbances Ears: ABSENT: hearing changes Nose, Mouth, and Throat: ABSENT: mouth pain, sore throat Cardiovascular: PRESENT: dyspnea on exertion, edema, orthropnea. ABSENT: chest pain Respiratory: PRESENT: cough, dyspnea Gastrointestinal: PRESENT: constipation, dysphagia, melena, nausea. ABSENT: abdominal pain, bloating, coffee ground emesis, diarrhea, heartburn, hematemesis , hematochezia, vomiting Genitourinary: PRESENT: nocturia. ABSENT: dysuria, hematuria Musculoskeletal: ABSENT: deformity, joint swelling Integumentary: ABSENT: pruritus, rash Neurological: ABSENT: abnormal speech, confusion, convulsions, focal weakness, lack of coordination, memory loss Psychiatric: ABSENT: hallucinations, homidical ideation, suicidal ideation Endocrine: ABSENT: cold intolerance, heat intolerance Hematologic/Lymphatic: ABSENT: easy bruising Physical Exam Vital Signs: Temp Pulse Resp BP Pulse Ox 98.3 F 71 18 112/54 L 94 01/17/17 11:20 01/17/17 11:20 01/17/17 11:20 01/17/17 11:20 01/17/17 11:20 Intake & Output 01/16/17 01/17/17 01/18/17 06:59 06:59 06:59 Intake Total 850 Output Total 1 Balance 849 Weight 73.8 kg General appearance: PRESENT: no acute distress, cooperative, disheveled, obese, well-developed, well-nourished. ABSENT: hard of hearing, mild distress, morbidly obese, severe distress, thin Head exam: PRESENT: atraumatic, normocephalic Eye exam: PRESENT: conjunctiva pale, EOMI. ABSENT: conjunctival injection, conjunctiva pink, nystagmus, periorbital swelling, scleral icterus Mouth exam: PRESENT: dry mucosa, neck supple, tongue midline. ABSENT: laceration, moist Teeth exam: PRESENT: poor dentation Neck exam: ABSENT: carotid bruit, JVD, lymphadenopathy, thyromegaly, tracheal deviation, tracheostomy Respiratory exam: PRESENT: decreased breath sounds, prolonged expiratory phas, rhonchi, symmetrical, unlabored, wheezes. ABSENT: accessory muscle use, chest wall tenderness, clear to auscultation oh, crackles, rales, retraction, stridor , tachypnea Cardiovascular exam: PRESENT: RRR, +S1, +S2. ABSENT: rubs Pulses: PRESENT: normal radial pulses GI/Abdominal exam: PRESENT: normal bowel sounds, soft. ABSENT: distended, guarding, mass, organolmegaly, rebound, tenderness Extremities exam: ABSENT: calf tenderness, clubbing, joint swelling Musculoskeletal exam: ABSENT: deformity, dislocation Neurological exam: PRESENT: alert, awake Psychiatric exam: PRESENT: flat affect Skin exam: PRESENT: dry, warm Results Laboratory Results: 01/17/17 03:58 01/17/17 03:58 01/17/17 01/17/17 03:58 03:58 WBC 15.3 H RBC 3.51 L Hgb 10.5 L Hct 31.8 L MCV 90 MCH 29.9 MCHC 33.1 RDW 16.4 H Plt Count 291 Seg Neutrophils % 92.4 H Lymphocytes % 5.4 L Monocytes % 2.2 L Eosinophils % 0.0 Basophils % 0.0 Absolute Neutrophils 14.1 H Absolute Lymphocytes 0.8 Absolute Monocytes 0.3 Absolute Eosinophils 0.0 Absolute Basophils 0.0 Sodium 142.2 Potassium 5.0 Chloride 101 Carbon Dioxide 31 H Anion Gap 10 BUN 21 H Creatinine 0.92 Est GFR ( Amer) > 60 Est GFR (Non-Af Amer) > 60 Glucose 207 H Calcium 8.5 Total Bilirubin 0.3 AST 11 L ALT 25 Alkaline Phosphatase 89 Total Protein 5.6 L Albumin 2.7 L Triglycerides 116 Cholesterol 94.41 LDL Cholesterol Direct 47 VLDL Cholesterol 23.0 HDL Cholesterol 30 L 01/16/17 01/16/17 01/16/17 03:35 03:35 10:42 Creatine Kinase 30 25 L Troponin I < 0.012 01/16/17 01/16/17 01/16/17 10:42 16:49 16:49 Creatine Kinase 27 L Troponin I < 0.012 < 0.012 Impressions: Chest X-Ray 01/15/17 20:02 IMPRESSION: Chronic appearing changes are again identified. There are scattered confluent densities which I cannot exclude as an acute process superimposed on the chronic underlying changes. There is some blunting of the costophrenic angles which I cannot exclude is tiny pleural effusions. Other findings as noted above Chest CT 01/16/17 00:00 IMPRESSION: Worsened moderate mixed airspace and interstitial markings and moderate mediastinal lymphadenopathy. Differential diagnosis includes pneumonia, pulmonary edema, fibrosis, and/or malignancy. Consider CT/PET evaluation and/or Pulmonary Medicine consultation. Assessment & Plan - Diagnosis (1) Acute respiratory failure with hypercapnia Is this a current diagnosis for this admission?: Yes Plan: Labs- All tests 24 hr 01/15/17 01/16/17 21:00 05:00 ABG pCO2 55.8 H ABG pO2 60.1 L VBG pCO2 68.2 H* FiO2 5L Continue supplemental oxygen and ventilatory support Generic Name Dose Route Start Last Admin Trade Name Freq PRN Reason Stop Dose Admin Albuterol/Ipratropium 3 ml 01/16/17 03:24 01/18/17 10:36 Duoneb 3 Ml Ampul NEB 02/15/17 03:23 3 ml RTQ3HP PRN (2) COPD exacerbation Is this a current diagnosis for this admission?: Yes Plan: better
[2017-01-19] MEDS: INSULIN LISPRO 100 UNIT/ML 3 ML VIAL SUBCUT PRN (12:35)
[2017-01-19] MEDS: IBUPROFEN 400 MG TABLET PO PRN ×2 (15:22→21:49)
--- NOTE | 2017-01-19 21:33 | PDOC PROGRESS REPORT ---
Subjective Progress Note for:: 01/19/17 Subjective:: Patient was seen by the bedside, she is feeling better Reason For Visit: ACUTE HYPERCAPNIC RESPIRATORY FAILURE,ACUTE COPD Physical Exam Vital Signs: Temp Pulse Resp BP Pulse Ox 98.8 F 76 16 122/50 L 96 01/19/17 16:06 01/19/17 16:06 01/19/17 16:06 01/19/17 16:06 01/19/17 16:06 Intake & Output 01/18/17 01/19/17 01/20/17 06:59 06:59 06:59 Intake Total 4169 2225 1332 Balance 4169 2225 1332 Weight 77.7 kg General appearance: PRESENT: mild distress Head exam: PRESENT: atraumatic, normocephalic Eye exam: PRESENT: PERRLA. ABSENT: scleral icterus Neck exam: PRESENT: full ROM Respiratory exam: PRESENT: crackles Cardiovascular exam: PRESENT: RRR, +S1, +S2 Vascular exam: PRESENT: normal capillary refill GI/Abdominal exam: PRESENT: normal bowel sounds, soft Rectal exam: PRESENT: deferred Neurological exam: PRESENT: alert, CN II-XII grossly intact Psychiatric exam: PRESENT: appropriate affect, normal mood Skin exam: PRESENT: dry, intact, warm. ABSENT: cyanosis, rash Results Laboratory Results: 01/19/17 04:50 01/17/17 03:58 01/19/17 04:50 WBC 10.3 RBC 3.43 L Hgb 10.2 L Hct 31.2 L MCV 91 MCH 29.8 MCHC 32.7 RDW 15.9 H Plt Count 292 Seg Neutrophils % Not Reportable Lymphocytes % Not Reportable Monocytes % Not Reportable Eosinophils % Not Reportable Basophils % Not Reportable Absolute Neutrophils Not Reportable Absolute Lymphocytes Not Reportable Absolute Monocytes Not Reportable Absolute Eosinophils Not Reportable Absolute Basophils Not Reportable 01/17/17 10:55 Sputum Gram Stain - Final 01/17/17 10:55 Sputum Sputum Culture - Final NORMAL TERESA 01/16/17 01/16/17 01/16/17 03:35 03:35 10:42 Creatine Kinase 30 25 L Troponin I < 0.012 01/16/17 01/16/17 01/16/17 10:42 16:49 16:49 Creatine Kinase 27 L Troponin I < 0.012 < 0.012 Impressions: Chest X-Ray 01/15/17 20:02 IMPRESSION: Chronic appearing changes are again identified. There are scattered confluent densities which I cannot exclude as an acute process superimposed on the chronic underlying changes. There is some blunting of the costophrenic angles which I cannot exclude is tiny pleural effusions. Other findings as noted above Chest CT 01/16/17 00:00 IMPRESSION: Worsened moderate mixed airspace and interstitial markings and moderate mediastinal lymphadenopathy. Differential diagnosis includes pneumonia, pulmonary edema, fibrosis, and/or malignancy. Consider CT/PET evaluation and/or Pulmonary Medicine consultation. Assessment & Plan - Diagnosis (1) Acute respiratory failure with hypercapnia Is this a current diagnosis for this admission?: Yes (2) Pneumonia Qualifiers: Pneumonia type: due to unspecified organism Laterality: unspecified laterality Lung location: unspecified part of lung Qualified Code(s): J18.9 - Pneumonia, unspecified organism Is this a current diagnosis for this admission?: Yes (3) Urinary tract infection Qualifiers: Urinary tract infection type: site unspecified Hematuria presence: without hematuria Qualified Code(s): N39.0 - Urinary tract infection, site not specified Is this a current diagnosis for this admission?: Yes (4) E. coli urinary tract infection Is this a current diagnosis for this admission?: Yes - Plan Summary Plan Summary: She will continue IV antibiotic
[2017-01-20] MEDS: AZTREONAM 1 GM in DEXTROSE 5%-WATER 50 ML IV SCH ×3 (01:30→17:52)
[2017-01-20] MEDS: IBUPROFEN 400 MG TABLET PO PRN ×2 (02:12→15:08)
[2017-01-20] MEDS: AZITHROMYCIN 250 MG TABLET PO SCH (09:54)
[2017-01-20] MEDS: ENOXAPARIN SODIUM INJ 40 MG/0.4 ML DISP.SYRIN SUBCUT SCH (09:57)
[2017-01-20] MEDS: IPRATROPIUM/ALBUTEROL 0.5-2.5 MG/3 ML AMPUL NEB PRN ×2 (11:27→14:21)
--- NOTE | 2017-01-20 14:49 | PDOC PROGRESS REPORT ---
Subjective Progress Note for:: 01/20/17 Subjective:: Breathing is getting better. No chest pain. No abdominal pain, nausea or vomiting. No fever or chills. Reason For Visit: ACUTE HYPERCAPNIC RESPIRATORY FAILURE,ACUTE COPD Physical Exam Vital Signs: Temp Pulse Resp BP Pulse Ox 97.7 F 73 17 133/40 H 94 01/20/17 11:41 01/20/17 11:41 01/20/17 11:41 01/20/17 11:41 01/20/17 11:41 Intake & Output 01/19/17 01/20/17 01/21/17 06:59 06:59 06:59 Intake Total 2225 1572 592 Balance 2225 1572 592 General appearance: PRESENT: no acute distress, obese Head exam: PRESENT: atraumatic, normocephalic Eye exam: PRESENT: conjunctiva pink, EOMI, PERRLA. ABSENT: scleral icterus Respiratory exam: PRESENT: clear to auscultation oh Cardiovascular exam: PRESENT: RRR. ABSENT: diastolic murmur, rubs, systolic murmur Vascular exam: PRESENT: normal capillary refill. ABSENT: pallor GI/Abdominal exam: PRESENT: normal bowel sounds, soft. ABSENT: distended, guarding, mass, organolmegaly, rebound, tenderness Extremities exam: ABSENT: pedal edema Musculoskeletal exam: PRESENT: normal inspection Neurological exam: PRESENT: alert, awake, oriented to person, oriented to place , oriented to time, oriented to situation, CN II-XII grossly intact. ABSENT: motor sensory deficit Psychiatric exam: PRESENT: appropriate affect, normal mood. ABSENT: homicidal ideation, suicidal ideation Skin exam: PRESENT: dry, intact, warm. ABSENT: cyanosis, rash Results Laboratory Results: 01/19/17 04:50 01/17/17 03:58 01/17/17 10:55 Sputum Gram Stain - Final 01/17/17 10:55 Sputum Sputum Culture - Final NORMAL TERESA 01/16/17 01/16/17 01/16/17 03:35 03:35 10:42 Creatine Kinase 30 25 L Troponin I < 0.012 01/16/17 01/16/17 01/16/17 10:42 16:49 16:49 Creatine Kinase 27 L Troponin I < 0.012 < 0.012 Impressions: Chest X-Ray 01/15/17 20:02 IMPRESSION: Chronic appearing changes are again identified. There are scattered confluent densities which I cannot exclude as an acute process superimposed on the chronic underlying changes. There is some blunting of the costophrenic angles which I cannot exclude is tiny pleural effusions. Other findings as noted above Chest CT 01/16/17 00:00 IMPRESSION: Worsened moderate mixed airspace and interstitial markings and moderate mediastinal lymphadenopathy. Differential diagnosis includes pneumonia, pulmonary edema, fibrosis, and/or malignancy. Consider CT/PET evaluation and/or Pulmonary Medicine consultation. Assessment & Plan - Diagnosis (1) Acute exacerbation of chronic obstructive pulmonary disease (COPD) Is this a current diagnosis for this admission?: Yes Plan: See covering attending physician orders. (2) Acute hypercapnic respiratory failure Is this a current diagnosis for this admission?: Yes Plan: See covering attending physician orders. (3) Type 2 diabetes mellitus Qualifiers: Diabetes mellitus complication status: without complication Diabetes mellitus care home insulin use: without care home use Qualified Code(s): E11.9 - Type 2 diabetes mellitus without complications Is this a current diagnosis for this admission?: Yes Plan: See covering attending physician orders. - Time Time Spent with patient: 25-34 minutes Medications reviewed and adjusted accordingly: Yes Anticipated discharge: Home with Homehealth Within: Other - Inpatient Certification Based on my medical assessment, after consideration of the patient's comorbidities, presenting symptoms, or acuity I expect that the services needed warrant INPATIENT care.: Yes I certify that my determination is in accordance with my understanding of Medicare's requirements for reasonable and necessary INPATIENT services [42 CFR 412.3e].: Yes Medical Necessity: Need Close Monitoring Due to Risk of Patient Decompensation, Need For IV Fluids, Need For Continuous Telemetry Monitoring, Need for Nebulizer Therapy and Monitoring of Response, Need for IV Antibiotics, Risk of Complication if Not Cared For in Hospital 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
[2017-01-20] MEDS: ACETAMINOPHEN 325 MG TABLET PO PRN (21:37)
[2017-01-20] MEDS: NORMAL SALINE 1000 ML 1,000 ML IV PRN (21:38)
[2017-01-21] MEDS: AZTREONAM 1 GM in DEXTROSE 5%-WATER 50 ML IV SCH ×3 (02:29→17:16)
[2017-01-21] MEDS: IBUPROFEN 400 MG TABLET PO PRN (08:07)
[2017-01-21] MEDS: IPRATROPIUM/ALBUTEROL 0.5-2.5 MG/3 ML AMPUL NEB PRN ×2 (08:32→21:47)
[2017-01-21] MEDS: ACETAMINOPHEN 325 MG TABLET PO PRN (09:29)
[2017-01-21] MEDS: AZITHROMYCIN 250 MG TABLET PO SCH (09:29)
[2017-01-21] MEDS: ENOXAPARIN SODIUM INJ 40 MG/0.4 ML DISP.SYRIN SUBCUT SCH (09:30)
--- NOTE | 2017-01-21 12:25 | PDOC PROGRESS REPORT ---
Subjective Progress Note for:: 01/21/17 Subjective:: Patient reported improvement in her coughing and breathing. No chest pain. She reported headache and discomfort in her right ear with coughing. No fever or chills. No nausea, vomiting or abdominal pain. No dizziness. Reason For Visit: ACUTE HYPERCAPNIC RESPIRATORY FAILURE,ACUTE COPD Physical Exam Vital Signs: Temp Pulse Resp BP Pulse Ox 98.2 F 64 16 130/43 H 98 01/21/17 11:39 01/21/17 11:39 01/21/17 11:39 01/21/17 11:39 01/21/17 11:39 Intake & Output 01/20/17 01/21/17 01/22/17 06:59 06:59 06:59 Intake Total 1572 2701 Balance 1572 2701 Weight 76.5 kg Physical Exam: General appearance: PRESENT: no acute distress, obese Head exam: PRESENT: atraumatic, normocephalic Eye exam: PRESENT: conjunctiva pink, EOMI, PERRLA. ABSENT: scleral icterus Respiratory exam: PRESENT: clear to auscultation oh Cardiovascular exam: PRESENT: RRR. ABSENT: diastolic murmur, rubs, systolic murmur Vascular exam: PRESENT: normal capillary refill. ABSENT: pallor GI/Abdominal exam: PRESENT: normal bowel sounds, soft. ABSENT: distended, guarding, mass, organomegaly, rebound, tenderness Extremities exam: ABSENT: pedal edema Musculoskeletal exam: PRESENT: normal inspection Neurological exam: PRESENT: alert, awake, oriented to person, oriented to place , oriented to time, oriented to situation, CN II-XII grossly intact. ABSENT: motor sensory deficit Psychiatric exam: PRESENT: appropriate affect, normal mood. ABSENT: homicidal ideation, suicidal ideation Skin exam: PRESENT: dry, intact, warm. ABSENT: cyanosis, rash Results Laboratory Results: 01/19/17 04:50 01/17/17 03:58 01/16/17 01/16/17 01/16/17 03:35 03:35 10:42 Creatine Kinase 30 25 L Troponin I < 0.012 01/16/17 01/16/17 01/16/17 10:42 16:49 16:49 Creatine Kinase 27 L Troponin I < 0.012 < 0.012 Impressions: Chest X-Ray 01/15/17 20:02 IMPRESSION: Chronic appearing changes are again identified. There are scattered confluent densities which I cannot exclude as an acute process superimposed on the chronic underlying changes. There is some blunting of the costophrenic angles which I cannot exclude is tiny pleural effusions. Other findings as noted above Chest CT 01/16/17 00:00 IMPRESSION: Worsened moderate mixed airspace and interstitial markings and moderate mediastinal lymphadenopathy. Differential diagnosis includes pneumonia, pulmonary edema, fibrosis, and/or malignancy. Consider CT/PET evaluation and/or Pulmonary Medicine consultation. Assessment & Plan - Diagnosis (1) Acute exacerbation of chronic obstructive pulmonary disease (COPD) Is this a current diagnosis for this admission?: Yes (2) Acute hypercapnic respiratory failure Is this a current diagnosis for this admission?: Yes (3) Type 2 diabetes mellitus Qualifiers: Diabetes mellitus complication status: without complication Diabetes mellitus salvage determiner insulin use: without senior care use Qualified Code(s): E11.9 - Type 2 diabetes mellitus without complications Is this a current diagnosis for this admission?: Yes - Time Time Spent with patient: 25-34 minutes Medications reviewed and adjusted accordingly: Yes Anticipated discharge: Home Within: Other - Inpatient Certification Based on my medical assessment, after consideration of the patient's comorbidities, presenting symptoms, or acuity I expect that the services needed warrant INPATIENT care.: Yes I certify that my determination is in accordance with my understanding of Medicare's requirements for reasonable and necessary INPATIENT services [42 CFR 412.3e].: Yes Medical Necessity: Need Close Monitoring Due to Risk of Patient Decompensation, Need For IV Fluids, Need For Continuous Telemetry Monitoring, Need for Nebulizer Therapy and Monitoring of Response, Need for IV Antibiotics, Risk of Complication if Not Cared For in Hospital 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
[2017-01-21] MEDS ORDERED: HYDROCODONE/ACETAMINOPHEN 5-325 MG TABLET PO PRN (12:50)
[2017-01-21] MEDS: NORMAL SALINE 1000 ML 1,000 ML IV PRN (19:13)
[2017-01-22] MEDS: AZTREONAM 1 GM in DEXTROSE 5%-WATER 50 ML IV SCH ×3 (03:09→17:35)
[2017-01-22] MEDS: AZITHROMYCIN 250 MG TABLET PO SCH (10:35)
[2017-01-22] MEDS: ENOXAPARIN SODIUM INJ 40 MG/0.4 ML DISP.SYRIN SUBCUT SCH (10:36)
[2017-01-22] MEDS: ACETAMINOPHEN 325 MG TABLET PO PRN (11:20)
[2017-01-22] MEDS: IPRATROPIUM/ALBUTEROL 0.5-2.5 MG/3 ML AMPUL NEB PRN ×2 (11:44→22:47)
--- NOTE | 2017-01-22 13:04 | PDOC PROGRESS REPORT ---
Subjective Progress Note for:: 01/22/17 Subjective:: Clinically improved state go home soon Reason For Visit: ACUTE HYPERCAPNIC RESPIRATORY FAILURE,ACUTE COPD Physical Exam Vital Signs: Temp Pulse Resp BP Pulse Ox 98.3 F 64 16 137/44 H 99 01/22/17 07:48 01/22/17 07:48 01/22/17 07:48 01/22/17 07:48 01/22/17 07:48 Intake & Output 01/21/17 01/22/17 01/23/17 06:59 06:59 06:59 Intake Total 2701 3678 Output Total 1400 Balance 2701 2278 Weight 76.5 kg 75.6 kg General appearance: PRESENT: no acute distress, cooperative, disheveled, obese, well-developed. ABSENT: mild distress, morbidly obese, severe distress, thin Head exam: PRESENT: atraumatic, normocephalic Eye exam: PRESENT: conjunctiva pale, EOMI. ABSENT: conjunctival injection, conjunctiva pink, nystagmus, periorbital swelling, scleral icterus Mouth exam: PRESENT: dry mucosa, neck supple, tongue midline. ABSENT: laceration, moist Neck exam: ABSENT: carotid bruit, JVD, lymphadenopathy, thyromegaly, tracheal deviation, tracheostomy Respiratory exam: PRESENT: decreased breath sounds, prolonged expiratory phas, rhonchi, symmetrical, unlabored. ABSENT: accessory muscle use, chest wall tenderness, clear to auscultation oh, crackles, rales, retraction, stridor, tachypnea Cardiovascular exam: PRESENT: RRR, +S1, +S2. ABSENT: irregular rhythm, rubs Pulses: PRESENT: normal radial pulses GI/Abdominal exam: PRESENT: normal bowel sounds, soft. ABSENT: distended, guarding, mass, organolmegaly, rebound, tenderness Extremities exam: ABSENT: calf tenderness, clubbing, joint swelling Musculoskeletal exam: ABSENT: deformity, dislocation Neurological exam: PRESENT: alert, awake Skin exam: PRESENT: dry, warm Results Laboratory Results: 01/19/17 04:50 01/17/17 03:58 01/16/17 01/16/17 01/16/17 03:35 03:35 10:42 Creatine Kinase 30 25 L Troponin I < 0.012 01/16/17 01/16/17 01/16/17 10:42 16:49 16:49 Creatine Kinase 27 L Troponin I < 0.012 < 0.012 Impressions: Chest X-Ray 01/15/17 20:02 IMPRESSION: Chronic appearing changes are again identified. There are scattered confluent densities which I cannot exclude as an acute process superimposed on the chronic underlying changes. There is some blunting of the costophrenic angles which I cannot exclude is tiny pleural effusions. Other findings as noted above Chest CT 01/16/17 00:00 IMPRESSION: Worsened moderate mixed airspace and interstitial markings and moderate mediastinal lymphadenopathy. Differential diagnosis includes pneumonia, pulmonary edema, fibrosis, and/or malignancy. Consider CT/PET evaluation and/or Pulmonary Medicine consultation. Assessment & Plan - Diagnosis (1) Acute respiratory failure with hypercapnia Is this a current diagnosis for this admission?: Yes Plan: Labs- All tests 24 hr 01/15/17 01/16/17 21:00 05:00 ABG pCO2 55.8 H ABG pO2 60.1 L VBG pCO2 68.2 H* FiO2 5L At or near baseline Generic Name Dose Route Start Last Admin Trade Name Freq PRN Reason Stop Dose Admin Albuterol/Ipratropium 3 ml 01/16/17 03:24 01/18/17 10:36 Duoneb 3 Ml Ampul NEB 02/15/17 03:23 3 ml RTQ3HP PRN (2) COPD exacerbation Is this a current diagnosis for this admission?: Yes Plan: better
[2017-01-22] MEDS: IBUPROFEN 400 MG TABLET PO PRN (13:56)
[2017-01-22] MEDS: NORMAL SALINE 1000 ML 1,000 ML IV PRN (17:35)
--- NOTE | 2017-01-22 18:20 | PDOC PROGRESS REPORT ---
Subjective Progress Note for:: 01/22/17 Subjective:: She was seen by the bedside she feels much better, still have some wheezing Reason For Visit: ACUTE HYPERCAPNIC RESPIRATORY FAILURE,ACUTE COPD Physical Exam Vital Signs: Temp Pulse Resp BP Pulse Ox 98.4 F 59 L 18 127/44 H 94 01/22/17 16:03 01/22/17 16:03 01/22/17 16:03 01/22/17 16:03 01/22/17 17:24 Intake & Output 01/21/17 01/22/17 01/23/17 06:59 06:59 06:59 Intake Total 2701 3678 620 Output Total 1400 Balance 2701 2278 620 Weight 76.5 kg 75.6 kg 75.6 kg General appearance: PRESENT: no acute distress Eye exam: PRESENT: PERRLA Respiratory exam: PRESENT: wheezes Cardiovascular exam: PRESENT: +S1, +S2 GI/Abdominal exam: PRESENT: soft Neurological exam: PRESENT: alert Results Laboratory Results: 01/19/17 04:50 01/17/17 03:58 01/16/17 01/16/17 01/16/17 03:35 03:35 10:42 Creatine Kinase 30 25 L Troponin I < 0.012 01/16/17 01/16/17 01/16/17 10:42 16:49 16:49 Creatine Kinase 27 L Troponin I < 0.012 < 0.012 Impressions: Chest X-Ray 01/15/17 20:02 IMPRESSION: Chronic appearing changes are again identified. There are scattered confluent densities which I cannot exclude as an acute process superimposed on the chronic underlying changes. There is some blunting of the costophrenic angles which I cannot exclude is tiny pleural effusions. Other findings as noted above Chest CT 01/16/17 00:00 IMPRESSION: Worsened moderate mixed airspace and interstitial markings and moderate mediastinal lymphadenopathy. Differential diagnosis includes pneumonia, pulmonary edema, fibrosis, and/or malignancy. Consider CT/PET evaluation and/or Pulmonary Medicine consultation. Assessment & Plan - Diagnosis (1) Acute respiratory failure with hypercapnia Is this a current diagnosis for this admission?: Yes (2) Pneumonia Qualifiers: Pneumonia type: due to unspecified organism Laterality: unspecified laterality Lung location: unspecified part of lung Qualified Code(s): J18.9 - Pneumonia, unspecified organism Is this a current diagnosis for this admission?: Yes (3) Urinary tract infection Qualifiers: Urinary tract infection type: site unspecified Hematuria presence: without hematuria Qualified Code(s): N39.0 - Urinary tract infection, site not specified Is this a current diagnosis for this admission?: Yes (4) E. coli urinary tract infection Is this a current diagnosis for this admission?: Yes
[2017-01-23] MEDS: AZTREONAM 1 GM in DEXTROSE 5%-WATER 50 ML IV SCH ×3 (02:33→17:40)
[2017-01-23] MEDS: IBUPROFEN 400 MG TABLET PO PRN (07:19)
[2017-01-23] MEDS: IPRATROPIUM/ALBUTEROL 0.5-2.5 MG/3 ML AMPUL NEB PRN ×4 (08:03→21:07)
[2017-01-23] MEDS: AZITHROMYCIN 250 MG TABLET PO SCH (09:18)
[2017-01-23] MEDS: ENOXAPARIN SODIUM INJ 40 MG/0.4 ML DISP.SYRIN SUBCUT SCH (09:18)
[2017-01-23] MEDS: NORMAL SALINE 1000 ML 1,000 ML IV PRN (14:49)
--- NOTE | 2017-01-23 15:57 | PDOC PROGRESS REPORT ---
Subjective Progress Note for:: 01/23/17 Subjective:: Still a little tired and a little short of breath Reason For Visit: ACUTE HYPERCAPNIC RESPIRATORY FAILURE,ACUTE COPD Physical Exam Vital Signs: Temp Pulse Resp BP Pulse Ox 98.8 F 69 16 134/48 H 96 01/23/17 12:14 01/23/17 15:36 01/23/17 15:36 01/23/17 12:14 01/23/17 15:36 Intake & Output 01/22/17 01/23/17 01/24/17 06:59 06:59 06:59 Intake Total 3678 2159 600 Output Total 1400 Balance 2278 2159 600 Weight 75.6 kg 75.1 kg General appearance: PRESENT: no acute distress, cooperative, disheveled, morbidly obese, well-developed. ABSENT: hard of hearing, mild distress, obese, severe distress, thin Head exam: PRESENT: atraumatic, normocephalic Eye exam: PRESENT: conjunctiva pale, EOMI. ABSENT: conjunctival injection, conjunctiva pink, nystagmus, periorbital swelling, scleral icterus Mouth exam: PRESENT: dry mucosa, neck supple, tongue midline. ABSENT: laceration, moist Neck exam: ABSENT: carotid bruit, JVD, lymphadenopathy, thyromegaly, tracheal deviation, tracheostomy Respiratory exam: PRESENT: crackles, decreased breath sounds, prolonged expiratory phas, rhonchi, symmetrical, unlabored, wheezes. ABSENT: accessory muscle use, chest wall tenderness, clear to auscultation oh, rales, retraction , stridor, tachypnea Cardiovascular exam: PRESENT: RRR, +S1, +S2. ABSENT: irregular rhythm, rubs Pulses: PRESENT: normal radial pulses GI/Abdominal exam: PRESENT: normal bowel sounds, soft. ABSENT: distended, guarding, mass, organolmegaly, rebound, tenderness Extremities exam: ABSENT: calf tenderness, clubbing, joint swelling Musculoskeletal exam: PRESENT: ambulatory. ABSENT: deformity, dislocation Neurological exam: PRESENT: alert, awake Psychiatric exam: PRESENT: normal mood Skin exam: PRESENT: dry, warm Results Laboratory Results: 01/19/17 04:50 01/17/17 03:58 01/16/17 01/16/17 01/16/17 03:35 03:35 10:42 Creatine Kinase 30 25 L Troponin I < 0.012 01/16/17 01/16/17 01/16/17 10:42 16:49 16:49 Creatine Kinase 27 L Troponin I < 0.012 < 0.012 Impressions: Chest X-Ray 01/15/17 20:02 IMPRESSION: Chronic appearing changes are again identified. There are scattered confluent densities which I cannot exclude as an acute process superimposed on the chronic underlying changes. There is some blunting of the costophrenic angles which I cannot exclude is tiny pleural effusions. Other findings as noted above Chest CT 01/16/17 00:00 IMPRESSION: Worsened moderate mixed airspace and interstitial markings and moderate mediastinal lymphadenopathy. Differential diagnosis includes pneumonia, pulmonary edema, fibrosis, and/or malignancy. Consider CT/PET evaluation and/or Pulmonary Medicine consultation. Assessment & Plan - Diagnosis (1) Acute respiratory failure with hypercapnia Is this a current diagnosis for this admission?: No (2) COPD exacerbation Is this a current diagnosis for this admission?: Yes Plan: Diffuse expiratory wheezes and rhonchi over all lung sharp
--- NOTE | 2017-01-23 21:16 | PDOC PROGRESS REPORT ---
Subjective Progress Note for:: 01/23/17 Subjective:: Patient alert, she has normal headaches. Reason For Visit: ACUTE HYPERCAPNIC RESPIRATORY FAILURE,ACUTE COPD Physical Exam Vital Signs: Temp Pulse Resp BP Pulse Ox 98.3 F 53 L 18 121/48 L 97 01/23/17 19:37 01/23/17 19:37 01/23/17 19:37 01/23/17 19:37 01/23/17 19:37 Intake & Output 01/22/17 01/23/17 01/24/17 06:59 06:59 06:59 Intake Total 3678 2159 1760 Output Total 1400 Balance 2278 2159 1760 Weight 75.6 kg 75.1 kg General appearance: PRESENT: no acute distress Eye exam: PRESENT: PERRLA Respiratory exam: PRESENT: rhonchi Cardiovascular exam: PRESENT: +S1, +S2 GI/Abdominal exam: PRESENT: soft Neurological exam: PRESENT: alert Results Laboratory Results: 01/19/17 04:50 01/17/17 03:58 01/16/17 01/16/17 01/16/17 03:35 03:35 10:42 Creatine Kinase 30 25 L Troponin I < 0.012 01/16/17 01/16/17 01/16/17 10:42 16:49 16:49 Creatine Kinase 27 L Troponin I < 0.012 < 0.012 Impressions: Chest X-Ray 01/15/17 20:02 IMPRESSION: Chronic appearing changes are again identified. There are scattered confluent densities which I cannot exclude as an acute process superimposed on the chronic underlying changes. There is some blunting of the costophrenic angles which I cannot exclude is tiny pleural effusions. Other findings as noted above Chest CT 01/16/17 00:00 IMPRESSION: Worsened moderate mixed airspace and interstitial markings and moderate mediastinal lymphadenopathy. Differential diagnosis includes pneumonia, pulmonary edema, fibrosis, and/or malignancy. Consider CT/PET evaluation and/or Pulmonary Medicine consultation. Assessment & Plan - Diagnosis (1) Acute respiratory failure with hypercapnia Is this a current diagnosis for this admission?: No (2) Pneumonia Qualifiers: Pneumonia type: due to unspecified organism Laterality: unspecified laterality Lung location: unspecified part of lung Qualified Code(s): J18.9 - Pneumonia, unspecified organism Is this a current diagnosis for this admission?: Yes (3) Urinary tract infection Qualifiers: Urinary tract infection type: site unspecified Hematuria presence: without hematuria Qualified Code(s): N39.0 - Urinary tract infection, site not specified Is this a current diagnosis for this admission?: Yes (4) E. coli urinary tract infection Is this a current diagnosis for this admission?: Yes
[2017-01-24] MEDS: AZTREONAM 1 GM in DEXTROSE 5%-WATER 50 ML IV SCH ×3 (02:46→17:22)
[2017-01-24] MEDS: IPRATROPIUM/ALBUTEROL 0.5-2.5 MG/3 ML AMPUL NEB PRN ×2 (08:33→16:24)
[2017-01-24] MEDS: ENOXAPARIN SODIUM INJ 40 MG/0.4 ML DISP.SYRIN SUBCUT SCH (09:46)
[2017-01-24] MEDS: IBUPROFEN 400 MG TABLET PO PRN (10:57)
--- NOTE | 2017-01-24 14:50 | PDOC DISCHARGE SUMMARY ---
General - Admit/Disc Date/PCP Admission Date/Primary Care Provider: 01/15/17 23:31 RONALKATHRYN JOYA Discharge Date: 01/25/17 - Discharge Diagnosis (1) Acute respiratory failure with hypercapnia Is this a current diagnosis for this admission?: Yes (2) Pneumonia Is this a current diagnosis for this admission?: Yes (3) Urinary tract infection Is this a current diagnosis for this admission?: Yes (4) E. coli urinary tract infection Is this a current diagnosis for this admission?: Yes - Additional Information Resuscitation Status: Full Code Discharge Activity: Activity As Tolerated Home Medications: Levothyroxine Sodium [Synthroid] 50 mcg PO Q6AM 10/20/16 Levothyroxine Sodium [Synthroid] 200 mcg PO Q6AM 10/20/16 Albuterol Sulfate [Albuterol Sulfate 2.5mg/3 mL] 2.5 mg NEB RTQ6HP PRN 01/16/17 Albuterol Sulfate [Proair HFA] 2 puff IH Q6HP PRN 01/16/17 Aspirin [Ecotrin 81 mg EC Tablet] 81 mg PO DAILY 01/16/17 History of Present Illness History of Present Illness: GABINO ALEXANDER is a 71 year old female, She has a history of chronic obstructive pulmonary disease/pulmonary fibrosis she continues to smoke cigarettes she came to the emergency room last night for evaluation of shortness of breath, congestion, fever. In the emergency room she was evaluated , the hemogram revealed leukocytosis with white cell count of over 17,000. She continues to require non-invasive positive pressure ventilation with BiPAP. I saw the patient in the emergency room she was requiring noninvasive positive pressure ventilation, CT chest was done without contrast ,the chest showed increased moderate scattered AIR space opacities and interstitial markings with mild/moderate bronchiectasis at the lung bases and right upper lobe also found was increased mild to moderate lymphadenopathy of the mediastinum that include 1.3 cm precarinal lymph nodes 1.3 cm on prior examination from 10/11/2015. The ABG on 3 L showed pH 7.39, PCO2 55.8, PO2 60.1 bicarbonate 32.7, the ABG suggests chronic respiratory acidosis but she has increased PCO2 at baseline so clearly this is an acute respiratory acidosis considering the fact that she has increased CO2 at baseline. Hospital Course Hospital Course: Patient was admitted for the management of pneumonia and UTI, she was treated with IV antibiotic, IV aztreonam and azithromycin consultation was requested from pulmonary because of the CT scan findings does suggest other potential etiology other than pneumonia,. On admission there was audible wheeze but she was not treated with Solu-Medrol/steroid because of the possibility of pneumonia. She was treated with bronchodilators and antibiotic she also required noninvasive positive pressure ventilation with BiPAP intermittently. She also was treated for E. coli UTI, pansensitive to all antibiotic patient was counselled of the need for complete smoking cessation. Physical Exam Vital Signs: Temp Pulse Resp BP Pulse Ox 98.5 F 57 L 16 130/51 H 95 01/24/17 12:06 01/24/17 12:06 01/24/17 12:06 01/24/17 12:06 01/24/17 12:06 Intake & Output 01/23/17 01/24/17 01/25/17 06:59 06:59 06:59 Intake Total 2159 3295 Balance 2159 3295 Weight 75.1 kg 75.5 kg General appearance: PRESENT: no acute distress, well-developed, well-nourished Head exam: PRESENT: atraumatic, normocephalic Eye exam: PRESENT: conjunctiva pink, EOMI, PERRLA. ABSENT: scleral icterus Ear exam: PRESENT: normal external ear exam Mouth exam: PRESENT: moist, tongue midline Neck exam: PRESENT: full ROM Respiratory exam: PRESENT: clear to auscultation oh Cardiovascular exam: PRESENT: RRR, +S1, +S2 Pulses: PRESENT: normal dorsalis pedis pul, +2 pedal pulses bilateral Vascular exam: PRESENT: normal capillary refill GI/Abdominal exam: PRESENT: normal bowel sounds, soft Rectal exam: PRESENT: deferred Neurological exam: PRESENT: alert, awake, oriented to person, oriented to place , oriented to time, oriented to situation, CN II-XII grossly intact Psychiatric exam: PRESENT: appropriate affect, normal mood Skin exam: PRESENT: dry, intact, warm Results Laboratory Results: 01/19/17 04:50 01/17/17 03:58 01/16/17 01/16/17 01/16/17 03:35 03:35 10:42 Creatine Kinase 30 25 L Troponin I < 0.012 01/16/17 01/16/17 01/16/17 10:42 16:49 16:49 Creatine Kinase 27 L Troponin I < 0.012 < 0.012 Impressions: Chest X-Ray 01/15/17 20:02 IMPRESSION: Chronic appearing changes are again identified. There are scattered confluent densities which I cannot exclude as an acute process superimposed on the chronic underlying changes. There is some blunting of the costophrenic angles which I cannot exclude is tiny pleural effusions. Other findings as noted above Chest CT 01/16/17 00:00 IMPRESSION: Worsened moderate mixed airspace and interstitial markings and moderate mediastinal lymphadenopathy. Differential diagnosis includes pneumonia, pulmonary edema, fibrosis, and/or malignancy. Consider CT/PET evaluation and/or Pulmonary Medicine consultation.
--- NOTE | 2017-01-24 14:51 | PDOC PROGRESS REPORT ---
Subjective Progress Note for:: 01/24/17 Subjective:: She was seen by the bedside, she is much better, Reason For Visit: ACUTE HYPERCAPNIC RESPIRATORY FAILURE,ACUTE COPD Physical Exam Vital Signs: Temp Pulse Resp BP Pulse Ox 98.5 F 57 L 16 130/51 H 95 01/24/17 12:06 01/24/17 12:06 01/24/17 12:06 01/24/17 12:06 01/24/17 12:06 Intake & Output 01/23/17 01/24/17 01/25/17 06:59 06:59 06:59 Intake Total 2159 3295 Balance 2159 3295 Weight 75.1 kg 75.5 kg General appearance: PRESENT: no acute distress Eye exam: PRESENT: PERRLA Respiratory exam: PRESENT: clear to auscultation oh Cardiovascular exam: PRESENT: +S1, +S2 Neurological exam: PRESENT: alert Results Laboratory Results: 01/19/17 04:50 01/17/17 03:58 01/16/17 01/16/17 01/16/17 03:35 03:35 10:42 Creatine Kinase 30 25 L Troponin I < 0.012 01/16/17 01/16/17 01/16/17 10:42 16:49 16:49 Creatine Kinase 27 L Troponin I < 0.012 < 0.012 Impressions: Chest X-Ray 01/15/17 20:02 IMPRESSION: Chronic appearing changes are again identified. There are scattered confluent densities which I cannot exclude as an acute process superimposed on the chronic underlying changes. There is some blunting of the costophrenic angles which I cannot exclude is tiny pleural effusions. Other findings as noted above Chest CT 01/16/17 00:00 IMPRESSION: Worsened moderate mixed airspace and interstitial markings and moderate mediastinal lymphadenopathy. Differential diagnosis includes pneumonia, pulmonary edema, fibrosis, and/or malignancy. Consider CT/PET evaluation and/or Pulmonary Medicine consultation. Assessment & Plan - Diagnosis (1) Acute respiratory failure with hypercapnia Is this a current diagnosis for this admission?: Yes (2) Pneumonia Qualifiers: Pneumonia type: due to unspecified organism Laterality: unspecified laterality Lung location: unspecified part of lung Qualified Code(s): J18.9 - Pneumonia, unspecified organism Is this a current diagnosis for this admission?: Yes (3) Urinary tract infection Qualifiers: Urinary tract infection type: site unspecified Hematuria presence: without hematuria Qualified Code(s): N39.0 - Urinary tract infection, site not specified Is this a current diagnosis for this admission?: Yes (4) E. coli urinary tract infection Is this a current diagnosis for this admission?: Yes
[2017-01-25] MEDS: AZTREONAM 1 GM in DEXTROSE 5%-WATER 50 ML IV SCH (01:25)
[2017-01-25 04:10] VITALS: BP 143/47
--- NOTE | 2017-01-25 13:02 | PDOC PROGRESS REPORT ---
Subjective Progress Note for:: 01/24/17 Subjective:: a little short of breath Reason For Visit: ACUTE HYPERCAPNIC RESPIRATORY FAILURE,ACUTE COPD Physical Exam Vital Signs: Temp Pulse Resp BP Pulse Ox 98.0 F 63 18 143/47 H 96 01/25/17 07:09 01/25/17 07:09 01/25/17 07:09 01/25/17 07:09 01/25/17 07:09 Intake & Output 01/24/17 01/25/17 01/26/17 06:59 06:59 06:59 Intake Total 3295 1375 Output Total 1200 Balance 3295 175 Weight 75.5 kg 74.7 kg General appearance: PRESENT: no acute distress, cooperative, disheveled, obese, well-developed. ABSENT: mild distress, morbidly obese, severe distress, thin Head exam: PRESENT: atraumatic, normocephalic Eye exam: PRESENT: conjunctiva pale, EOMI. ABSENT: conjunctival injection, conjunctiva pink, nystagmus, periorbital swelling, scleral icterus Mouth exam: PRESENT: dry mucosa, neck supple, tongue midline. ABSENT: laceration, moist Neck exam: ABSENT: carotid bruit, JVD, lymphadenopathy, thyromegaly, tracheal deviation, tracheostomy Respiratory exam: PRESENT: crackles, decreased breath sounds, prolonged expiratory phas, rhonchi, symmetrical, unlabored, wheezes. ABSENT: accessory muscle use, chest wall tenderness, clear to auscultation oh, rales, retraction , stridor, tachypnea Cardiovascular exam: PRESENT: RRR, +S1, +S2. ABSENT: irregular rhythm, rubs GI/Abdominal exam: PRESENT: normal bowel sounds, soft. ABSENT: distended, guarding, mass, organolmegaly, rebound, tenderness Extremities exam: ABSENT: calf tenderness, clubbing, tenderness Musculoskeletal exam: ABSENT: deformity, dislocation Neurological exam: PRESENT: alert, awake Psychiatric exam: PRESENT: normal mood Skin exam: PRESENT: dry, warm Results Laboratory Results: 01/19/17 04:50 01/17/17 03:58 01/16/17 01/16/17 01/16/17 03:35 03:35 10:42 Creatine Kinase 30 25 L Troponin I < 0.012 01/16/17 01/16/17 01/16/17 10:42 16:49 16:49 Creatine Kinase 27 L Troponin I < 0.012 < 0.012 Impressions: Chest X-Ray 01/15/17 20:02 IMPRESSION: Chronic appearing changes are again identified. There are scattered confluent densities which I cannot exclude as an acute process superimposed on the chronic underlying changes. There is some blunting of the costophrenic angles which I cannot exclude is tiny pleural effusions. Other findings as noted above Chest CT 01/16/17 00:00 IMPRESSION: Worsened moderate mixed airspace and interstitial markings and moderate mediastinal lymphadenopathy. Differential diagnosis includes pneumonia, pulmonary edema, fibrosis, and/or malignancy. Consider CT/PET evaluation and/or Pulmonary Medicine consultation. Assessment & Plan - Diagnosis (1) Acute respiratory failure with hypercapnia Is this a current diagnosis for this admission?: No (2) COPD exacerbation Is this a current diagnosis for this admission?: Yes Plan: Improved but not yet resolved
== END 2017-01-25 09:48 | disposition home or self-care (01) | DRG 189 ==
LOC: ER 19:36 → OBSVTOIN 23:31 → EH 23:31 → 3N 01-16 21:06 → EH 01-16 21:06
PROVIDERS: ADMIT Internal Medicine; ATTEND Internal Medicine
PROC: 3E0234Z Introduction of Serum, Toxoid and Vaccine into Muscle, Percutaneous Approach (ICD-10-PCS; principal; 2017-01-25)
DX: J96.02 Acute respiratory failure with hypercapnia (principal); J18.9 Pneumonia, unspecified organism; J44.1 Chronic obstructive pulmonary disease with (acute) exacerbation; J44.0 Chronic obstructive pulmonary disease with (acute) lower respiratory infection; N39.0 Urinary tract infection, site not specified; J84.10 Pulmonary fibrosis, unspecified; I50.9 Heart failure, unspecified; I11.0 Hypertensive heart disease with heart failure; I73.9 Peripheral vascular disease, unspecified; E11.9 Type 2 diabetes mellitus without complications; E03.9 Hypothyroidism, unspecified; B96.20 Unspecified Escherichia coli [E. coli] as the cause of diseases classified elsewhere; F17.210 Nicotine dependence, cigarettes, uncomplicated; E66.01 Morbid (severe) obesity due to excess calories; Z68.30 Body mass index [BMI] 30.0-30.9, adult; Z88.8 Allergy status to other drugs, medicaments and biological substances; Z91.011 Allergy to milk products; Z91.010 Allergy to peanuts; Z23 Encounter for immunization; Z79.82 Long term (current) use of aspirin; Z79.51 Long term (current) use of inhaled steroids; Z79.899 Other long term (current) drug therapy
CPT/HCPCS: 36415; 71020; 71250; 80053; 80061; 81001; 82140; 82150; 82550; 82570; 82803; 82962; 83036; 83605; 83690; 83735; 84100; 84156; 84439; 84443; 84484; 85025; 85610; 85730; 87040; 87070; 87086; 87088; 87186; 87205; 87804; 90686; 93005; 93010; 94640; 94660; 96365; 96366; 96367; 96375; 96376; 99285; J0456; J1650; J1815; J1956; J2930; J3490; J7030; J7060; J7620

== ENCOUNTER 2017-08-01 15:00 | Emergency (ER) | payer MEDICARE, OTHER ==
--- NOTE | 2017-08-01 15:23 | ER Document Report ---
ED General - General Chief Complaint: Productive Cough Stated Complaint: COUGH Time Seen by Provider: 08/01/17 15:21 Mode of Arrival: Medic Information source: Patient Notes: This is a 72-year-old female with a history of COPD, CHF, insulin requiring diabetes who presents to the emergency room with coughing episode productive of some blood. Currently, patient complains of no chest pain. Denies any shortness of breath. No active bleeding. She does state that she was taking Excedrin regularly for joint pain. She states she stopped that when the bleeding started. She also states that the bleeding has gotten better over the last several hours. Describes blood-tinged sputum. TRAVEL OUTSIDE OF THE [place] IN LAST 30 DAYS: No - HPI Onset: Last week Onset/Duration: Gradual Quality of pain: No pain Severity: None Pain Level: Denies Associated symptoms: denies: Chest pain, Fever, Shortness of breath Exacerbated by: Denies Relieved by: Denies Similar symptoms previously: No Recently seen / treated by doctor: No - Related Data Allergies/Adverse Reactions: albuterol sulfate [From DuoNeb] Allergy (Verified 10/06/14 22:21) allopurinol [From Zyloprim] Allergy (Verified 10/06/14 22:21) alprazolam [From Xanax] Allergy (Verified 10/06/14 22:21) amitriptyline HCl [From Elavil] Allergy (Verified 10/06/14 22:21) atorvastatin calcium [From Lipitor] Allergy (Verified 10/06/14 22:21) belladonna alkaloids [From Bellergal-S] Allergy (Verified 10/06/14 22:21) bupivacaine [Bupivacaine] Allergy (Verified 10/06/14 22:21) cefuroxime axetil [From Ceftin] Allergy (Verified 10/06/14 22:21) celecoxib [From Celebrex] Allergy (Verified 10/06/14 22:21) cimetidine [From Tagamet] Allergy (Verified 10/06/14 22:21) ciprofloxacin [Ciprofloxacin] Allergy (Verified 10/06/14 22:21) codeine [Codeine] Allergy (Verified 10/06/14 22:21) doxepin HCl [From Sinequan] Allergy (Verified 10/06/14 22:21) ergotamine tartrate [From Bellergal-S] Allergy (Verified 10/06/14 22:21) fluoxetine HCl [From Prozac] Allergy (Verified 10/06/14 22:21) hydroxyzine HCl [From Atarax] Allergy (Verified 10/06/14 22:21) indigotindisulfonic acid [From [place]igo [place]] Allergy (Verified 10/11/15 07:27) ipratropium bromide [From DuoNeb] Allergy (Verified 10/06/14 22:21) lemon oil Allergy (Verified 10/06/14 22:21) malathion Allergy (Verified 10/06/14 22:21) mefenamic acid Allergy (Verified 10/06/14 22:21) metformin HCl [From Glucophage] Allergy (Verified 10/06/14 22:21) metoclopramide HCl [From Reglan] Allergy (Verified 10/06/14 22:21) Milk Containing Products Allergy (Verified 10/06/14 22:21) morphine Allergy (Verified 10/06/14 22:21) naproxen sodium [From Anaprox] Allergy (Verified 10/06/14 22:21) nefazodone HCl [From Serzone] Allergy (Verified 10/06/14 22:21) peanut Allergy (Verified 10/06/14 22:21) phenobarbital [From Bellergal-S] Allergy (Verified 10/06/14 22:21) phenylephrine tannate [From Deconsal CT] Allergy (Verified 10/06/14 22:21) pyrilamine tannate [From Deconsal CT] Allergy (Verified 10/06/14 22:21) sertraline HCl [From Zoloft] Allergy (Verified 10/06/14 22:21) sucralfate [From Carafate] Allergy (Verified 10/06/14 22:21) tolterodine tartrate [From Detrol] Allergy (Verified 10/06/14 22:21) tramadol Allergy (Verified 10/06/14 22:21) trazodone HCl [From Desyrel] Allergy (Verified 10/06/14 22:21) my-e Allergy (Uncoded 10/06/14 22:21) renuzil Allergy (Uncoded 10/06/14 22:21) surgical steel Allergy (Uncoded 10/06/14 22:21) Past Medical History - General Information source: Patient - Social History Smoking Status: Current Every Day Smoker Cigarette use (# per day): Yes - Half pack per day Chew tobacco use (# tins/day): No Frequency of alcohol use: None Drug Abuse: None Family History: CAD, DM, Hypertension Patient has suicidal ideation: No Patient has homicidal ideation: No - Past Medical History Cardiac Medical History: Reports: Hx Congestive Heart Failure, Hx Hypertension, Hx Peripheral Vascular Disease Pulmonary Medical History: Reports: Hx COPD Endocrine Medical History: Reports: Hx Diabetes Mellitus Type 2, Hx Hypothyroidism Renal/ Medical History: Denies: Hx Peritoneal Dialysis GI Medical History: Reports: Hx Gastroesophageal Reflux Disease. Denies: Hx Crohn's Disease, Hx Ulcerative Colitis Musculoskeltal Medical History: Reports Hx Arthritis, Denies Hx Gout Skin Medical History: Denies Hx Eczema, Denies Hx Psoriasis Psychiatric Medical History: Denies: Hx Bipolar Disorder, Hx Personality Disorder, Hx Schizoaffective Disorder Traumatic Medical History: Denies: Hx Traumatic Brain Injury Past Surgical History: Reports: Hx Cholecystectomy, Hx Orthopedic Surgery - L Wrist - Immunizations Immunizations up to date: No Hx Diphtheria, Pertussis, Tetanus Vaccination: No Review of Systems - Review of Systems Constitutional: denies: Chills, Fever EENT: No symptoms reported Cardiovascular: No symptoms reported Respiratory: See HPI Gastrointestinal: No symptoms reported Genitourinary: No symptoms reported Female Genitourinary: No symptoms reported Musculoskeletal: No symptoms reported Skin: No symptoms reported Hematologic/Lymphatic: No symptoms reported Neurological/Psychological: No symptoms reported Physical Exam - Vital signs Vitals: Temp Pulse Resp BP Pulse Ox 98.6 F 67 18 135/68 H 93 08/01/17 15:00 08/01/17 15:00 08/01/17 15:00 08/01/17 15:00 08/01/17 15:00 Notes: Physical exam: GENERAL: 72-year-old female, alert and oriented 3, no acute distress HEAD: Atraumatic, normocephalic. EYES: Pupils equal round and reactive to light, extraocular movements intact, sclera anicteric, conjunctiva are normal. ENT: TMs normal, nares patent, oropharynx clear without exudates. Moist mucous membranes. NECK: Normal range of motion, supple without obvious mass or JVD. LUNGS: Bilateral wheezing HEART: Regular rate and rhythm without murmurs, rubs or gallops. ABDOMEN: Soft, normoactive bowel sounds. No tenderness to palpation. No guarding, no rebound. No masses appreciated. EXTREMITIES: Normal range of motion, no pitting or edema. No clubbing or cyanosis. NEUROLOGICAL: Cranial nerves II through XII grossly intact. Normal speech, moving all extremities. PSYCH: Normal mood, normal affect. SKIN: Warm, Dry, normal turgor, no rashes or lesions noted. Course - Re-evaluation Re-evalutation: 08/01/17 19:54 Note: Patient did have some wheezing on arrival but did not want a nebulizer treatment. She took out her inhaler and use that and her lungs cleared. She was observed several hours in the ER and has not had much bleeding at all. She did cough a few times and had blood-tinged sputum once. She states that overall this is gotten better, not worse. Currently, her lungs are clear and she looks good. CTA of the chest shows no mass, blood clots or pneumonia. Her labs are relatively good. I offered her admission for observation but she would rather go home. I gave her instructions to the return to the emergency room if the bleeding worsens or if she gets short of breath. - Vital Signs Vital signs: Temp Pulse Resp BP Pulse Ox 98.6 F 67 22 H 132/59 H 97 08/01/17 15:00 08/01/17 15:00 08/01/17 19:01 08/01/17 19:01 08/01/17 19:01 - Laboratory Result Diagrams: 08/01/17 16:08 08/01/17 16:08 Laboratory results interpreted by me: 08/01/17 08/01/17 16:08 16:08 RDW 15.2 H BUN 25 H Est GFR (Non-Af Amer) 53 L Glucose 117 H - Diagnostic Test Radiology reviewed: Image reviewed, Reports reviewed - CTA of the chest shows no pulmonary emboli, masses or pneumonia Discharge - Discharge Clinical Impression: Hemoptysis Condition: Stable Disposition: HOME, SELF-CARE Additional Instructions: As we discussed, your blood work looked quite good. The CAT scan showed no evidence of pneumonia, cancer or blood clots. It may be that the blood-tinged sputum is from the COPD. It is possible that this could have been irritated more by the Excedrin. In any event, I would avoid aspirin and continue your current medicines. Return to the emergency room for any worsening bleeding, shortness of breath or any concerns or getting worse. I would like you to follow-up with Dr. quach in the office, but just come back here if you have any problems. Referrals: RONAL JOYA MD [Primary Care Provider] - Follow up as needed
--- NOTE | 2017-08-01 15:52 | RADIOLOGY REPORT (SQ) ---
EXAM DESCRIPTION: CHEST SINGLE VIEW COMPLETED DATE/TIME: 08/01/2017 3:35 pm REASON FOR STUDY: cough COMPARISON: Chest x-ray dated January 2017 EXAM PARAMETERS: NUMBER OF VIEWS: One view. TECHNIQUE: Single frontal radiographic view of the chest acquired. RADIATION DOSE: NA LIMITATIONS: None. FINDINGS: LUNGS AND PLEURA: Predominately linear densities are identified in the left lower lung fie ld which could represent atelectatic changes or minimal basilar infiltrate. Chronic appearing change s are identified. Remaining lung sharp are clear. No pleural effusions are identified. No pneumot horax is seen. MEDIASTINUM AND HILAR STRUCTURES: No masses. Contour normal. HEART AND VASCULAR STRUCTURES: Heart normal in size. Normal vasculature. BONES: No acute findings. HARDWARE: None in the chest. OTHER: No other significant finding. IMPRESSION: Predominately linear densities in the left lower lung field as noted above which could r epresent atelectatic changes or a minimal basilar infiltrate. Remaining lung sharp are clear. Othe r findings as noted above TECHNICAL DOCUMENTATION: JOB ID: [id number] [employer]- All Rights Reserved Reading location - IP/workstation name: [email or web address]
[2017-08-01 16:24] LABS: ABSOLUTE EOSINOPHILS # (AUTO) 0.1 10^3/uL (0.0-0.6); ABSOLUTE LYMPHOCYTES (AUTO) 1.7 10^3/uL (0.5-4.7); ABSOLUTE MONOCYTES (AUTO) 0.7 10^3/uL (0.1-1.4); BASOPHILS % (AUTO) 0.5 % (0-2); EOSINOPHILS % (AUTO) 1.2 % (0-6); HEMATOCRIT 42.7 % (36.0-47.0); HEMOGLOBIN 14.1 g/dL (12.0-15.5); LYMPHOCYTES % (AUTO) 17.8 % (13-45); MEAN CORPUSCULAR HEMOGLOBIN 29.4 pg (27.0-33.4); MEAN CORPUSCULAR VOLUME 89 fl (80-97); MONOCYTES % (AUTO) 7.4 % (3-13); PLATELET COUNT 194 10^3/uL (150-450); RED CELL DISTRIBUTION WIDTH 15.2 % (11.5-14.0); SEGMENTED NEUTROPHILS % (AUTO) 73.1 % (42-78); TOTAL CELLS COUNTED % (AUTO) 100 %; WHITE BLOOD COUNT 9.5 10^3/uL (4.0-10.5)
[2017-08-01 16:46] LABS: ALANINE AMINOTRANSFERASE 23 U/L (9-52); ALBUMIN 4.3 g/dL (3.5-5.0); ALKALINE PHOSPHATASE 71 U/L (38-126); ANION GAP 13 (5-19); ASPARTATE AMINO TRANSFERASE 20 U/L (14-36); BILIRUBIN,DIRECT 0.3 mg/dL (0.0-0.4); BILIRUBIN,TOTAL 0.3 mg/dL (0.2-1.3); BLOOD UREA NITROGEN 25 mg/dL (7-20); CALCIUM 9.9 mg/dL (8.4-10.2); CARBON DIOXIDE 26 mmol/L (22-30); CHLORIDE 103 mmol/L (98-107); CREATINE KINASE 32 U/L (30-135); GLUCOSE 117 mg/dL (75-110); POTASSIUM 4.9 mmol/L (3.6-5.0); SODIUM 142.3 mmol/L (137-145); TOTAL PROTEIN 7.6 g/dL (6.3-8.2)
[2017-08-01 16:57] LABS: CREATINE KINASE MB 0.78 ng/mL (<4.55)
[2017-08-01 17:03] LABS: TROPONIN I < 0.012 ng/mL
--- NOTE | 2017-08-01 18:38 | RADIOLOGY REPORT (SQ) ---
EXAM DESCRIPTION: CTA CHEST COMPLETED DATE/TIME: 08/01/2017 6:16 pm REASON FOR STUDY: sob COMPARISON: 01/16/2017 TECHNIQUE: CT scan of the chest performed using helical scanning technique with dynamic intravenous contrast injection. Images reviewed with lung, soft tissue and bone windows. Reconstructed coronal and sagittal MPR images reviewed. Additional 3 dimensional post-processing performed to develop Maximal Intensity Projection images (MT P). All images stored on PACS. All CT scanners at this facility use dose modulation, iterative reconstruction, and/or weight based d osing when appropriate to reduce radiation dose to as low as reasonably achievable (ALARA). [facility]: Dose Right [facility]: CareDose [facility]: Dose Right [facility]: Teradose 4D [facility]: FantasyHub CONTRAST TYPE AND DOSE: contrast/concentration: Isovue 370.00 mg/ml; Total Contrast Delivered: 65.0 ml; Total Saline Delivered: 90.0 ml Contrast bolus optimized for the pulmonary arteries. Not diagnostic for the aorta. RENAL FUNCTION: BUN 25 creatinine 1.02 RADIATION DOSE: CT Rad equipment meets quality standard of care and radiation dose reduction techniq ues were employed. CTDIvol: 14.3 - 16.5 mGy. DLP: 525 mGy-cm. . LIMITATIONS: None. FINDINGS: LUNGS AND PLEURA: Chronic interstitial changes. No acute airspace disease at this time. There is significant improvement in the appearance of the lungs compared to the earlier study. AORTA AND GREAT VESSELS: No aneurysm. Contrast bolus not optimized for the aorta. HEART: No pericardial effusion. Moderate coronary atherosclerosis. PULMONARY ARTERIES: No emboli visualized in the main pulmonary arteries or the segmental branches. HILAR AND MEDIASTINAL STRUCTURES: No identified masses or abnormal nodes. HARDWARE: None in the chest. UPPER ABDOMEN: No significant findings. Limited exam. THYROID AND OTHER SOFT TISSUES: No masses. No adenopathy. BONES: No acute or significant finding. 3D MIPS: Confirm above findings. OTHER: No other significant finding. IMPRESSION: 1. There is no evidence of pulmonary emboli. 2. Moderate chronic interstitial lung changes. COMMENT: Quality ID # [id number]: Final reports with documentation of one or more dose reduction techniques (e.g., Automated exposure control, adjustment of the mA and/or kV according to patient size, use of iterative reconstruction technique) TECHNICAL DOCUMENTATION: JOB ID: [id number]- All Rights Reserved Reading location - IP/workstation name: [email or web address]
[2017-08-01 19:39] VITALS: BP 132/59
--- NOTE | 2017-08-01 22:25 | EKG REPORT ---
SEVERITY:- NORMAL ECG - SINUS RHYTHM : Confirmed by: Melissa Menendez 01-Aug-2017 22:25:05
== END 2017-08-01 19:40 | disposition home or self-care (01) ==
LOC: ER 15:00
DX: R04.2 Hemoptysis (principal); J44.9 Chronic obstructive pulmonary disease, unspecified; I10 Essential (primary) hypertension; E11.51 Type 2 diabetes mellitus with diabetic peripheral angiopathy without gangrene; F17.210 Nicotine dependence, cigarettes, uncomplicated; Z79.4 Long term (current) use of insulin; Z88.8 Allergy status to other drugs, medicaments and biological substances; Z88.4 Allergy status to anesthetic agent; Z88.1 Allergy status to other antibiotic agents; Z88.5 Allergy status to narcotic agent; Z91.018 Allergy to other foods; Z91.011 Allergy to milk products; Z91.010 Allergy to peanuts
CPT/HCPCS: 36415; 71045; 71275; 80053; 82550; 82553; 84484; 85025; 93005; 93010; 99284

== ENCOUNTER 2017-12-08 17:52 | Emergency (ER) | payer MEDICARE ==
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
[2017-12-08 18:32] LABS: ABSOLUTE EOSINOPHILS # (AUTO) 0.1 10^3/uL (0.0-0.6); ABSOLUTE LYMPHOCYTES (AUTO) 2.3 10^3/uL (0.5-4.7); ABSOLUTE MONOCYTES (AUTO) 0.7 10^3/uL (0.1-1.4); ABSOLUTE NEUT (AUTO) 5.3 10^3/uL (1.7-8.2); BASOPHILS % (AUTO) 0.5 % (0-2); EOSINOPHILS % (AUTO) 1.1 % (0-6); HEMATOCRIT 39.7 % (36.0-47.0); HEMOGLOBIN 13.2 g/dL (12.0-15.5); LYMPHOCYTES % (AUTO) 27.6 % (13-45); MEAN CORPUSCULAR HEMOGLOBIN 31.6 pg (27.0-33.4); MEAN CORPUSCULAR HGB CONC 33.2 g/dL (32.0-36.0); MEAN CORPUSCULAR VOLUME 95 fl (80-97); MONOCYTES % (AUTO) 7.9 % (3-13); PLATELET COUNT 170 10^3/uL (150-450); RED BLOOD COUNT 4.17 10^6/uL (3.72-5.28); RED CELL DISTRIBUTION WIDTH 14.8 % (11.5-14.0); SEGMENTED NEUTROPHILS % (AUTO) 62.9 % (42-78); TOTAL CELLS COUNTED % (AUTO) 100 %; WHITE BLOOD COUNT 8.5 10^3/uL (4.0-10.5)
[2017-12-08 18:43] LABS: VENOUS BLOOD BASE EXCESS 5.5 mmol/L; VENOUS BLOOD HCO3 37.9 mmol/L (20-32); VENOUS BLOOD PH 7.21 (7.30-7.42)
[2017-12-08 18:45] LABS: ALANINE AMINOTRANSFERASE 18 U/L (9-52); ALKALINE PHOSPHATASE 57 U/L (38-126); ANION GAP 7 (5-19); ASPARTATE AMINO TRANSFERASE 16 U/L (14-36); BILIRUBIN,DIRECT 0.2 mg/dL (0.0-0.4); BILIRUBIN,TOTAL 0.4 mg/dL (0.2-1.3); BLOOD UREA NITROGEN 26 mg/dL (7-20); CARBON DIOXIDE 37 mmol/L (22-30); CHLORIDE 96 mmol/L (98-107); CREATINE KINASE 25 U/L (30-135); GLUCOSE 204 mg/dL (75-110); LIPASE 33.5 U/L (23-300); POTASSIUM 4.8 mmol/L (3.6-5.0); SODIUM 140.4 mmol/L (137-145); VENOUS BLOOD PCO2 97.5 mmHg (35-63)
--- NOTE | 2017-12-08 18:53 | RADIOLOGY REPORT (SQ) ---
EXAM DESCRIPTION: CHEST SINGLE VIEW COMPLETED DATE/TIME: 12/08/2017 6:34 pm REASON FOR STUDY: weakness COMPARISON: Chest x-ray 01/15/2017, 08/01/2017. CT angiogram chest 08/01/2017 . EXAM PARAMETERS: NUMBER OF VIEWS: One view. TECHNIQUE: Single frontal radiographic view of the chest acquired. RADIATION DOSE: NA LIMITATIONS: None. FINDINGS: LUNGS AND PLEURA: Redemonstration of prominent interstitial markings, probably representin g chronic changes. No consolidation, pleural effusion or pneumothorax. MEDIASTINUM AND HILAR STRUCTURES: No masses. Contour normal. HEART AND VASCULAR STRUCTURES: The heart is enlarged. No overt vascular congestion. BONES: No acute findings. HARDWARE: None in the chest. IMPRESSION: Cardiomegaly. Chronic interstitial changes. No consolidation or pleural effusion. TECHNICAL DOCUMENTATION: JOB ID: [id number] [employer]- All Rights Reserved Reading location - IP/workstation name: [email or web address]
[2017-12-08 18:57] LABS: CREATINE KINASE MB 0.91 ng/mL (<4.55)
[2017-12-08 19:01] LABS: TROPONIN I < 0.012 ng/mL
[2017-12-08 19:01] LABS: APPEARANCE,URINE SLIGHTLY-CLOUDY; BILIRUBIN,URINE NEGATIVE (NEGATIVE); COLOR,URINE YELLOW; GLUCOSE, URINE NEGATIVE (NEGATIVE); KETONES,URINE NEGATIVE (NEGATIVE); LEUKOCYTE ESTERASE,URINE NEGATIVE (NEGATIVE); NITRITE,URINE NEGATIVE (NEGATIVE); PROTEIN,URINE 100 mg/dL (NEGATIVE); URINE SPECIFIC GRAVITY 1.017
[2017-12-08 21:00] LABS: VENOUS BLOOD BASE EXCESS 10.1 mmol/L; VENOUS BLOOD HCO3 41.3 mmol/L (20-32); VENOUS BLOOD PH 7.25 (7.30-7.42)
[2017-12-08] MEDS ORDERED: AMOXICILLIN TR/POT CLAVULANATE 500-125 MG TAB PO ONE (21:37)
--- NOTE | 2017-12-08 21:47 | RADIOLOGY REPORT (SQ) ---
CLINICAL DATA: 72-year-old female with shortness of breath and chest pain, rule out pulmonary embolism. TECHNICAL DATA: Following the administration of intravenous contrast, multiple high-resolution axial images of the chest were performed followed by sagittal and coronal reconstructed images. Oblique MIP images were also performed. The CT study is performed according to ALARA (as low as reasonably achievable) or ALARA/IMAGE GENTLY, with automatic adjustment of mA and/or kV according to patient size. COMPARISONS: Chest x-ray performed on 12/08/2017. FINDINGS: There is satisfactory visualization and contrast opacification of pulmonary arteries. No definite intra-arterial filling defects are identified to suggest acute or chronic pulmonary embolism. The thoracic aorta is normal in caliber and contour without evidence of aneurysm or dissection. The lungs are well expanded. There is patchy parenchymal opacification particularly in the right upper lobe and anterior left upper lobe likely reflecting a combination of fibrosis and atelectasis. An underlying infectious or inflammatory process is not entirely excluded. There is no pleural effusion. There is no pneumothorax. The heart is normal in size. There is no pericardial effusion. There is no evidence of hilar, mediastinal or axillary lymphadenopathy. No acute osseous abnormality is identified. There are mild degenerative changes along the thoracic spine. The visualized upper abdominal structures are unremarkable. IMPRESSION: 1. No CT evidence to suggest acute or chronic pulmonary embolism, aortic aneurysm or aortic dissection. 2. Patchy parenchymal opacification particularly in the right upper lobe and anterior left upper lobe likely reflecting a combination of fibrosis and atelectasis. An underlying infectious or inflammatory process is not entirely excluded at this time.
--- NOTE | 2017-12-08 22:03 | EKG REPORT ---
SEVERITY:- ABNORMAL ECG - SINUS RHYTHM PROBABLE LEFT ATRIAL ABNORMALITY BORDERLINE RIGHT AXIS DEVIATION ABNORMAL T, CONSIDER ISCHEMIA, LATERAL LEADS : Confirmed by: Melissa Menendez 08-Dec-2017 22:00:58
[2017-12-08] MEDS ORDERED: LEVOTHYROXINE SODIUM 0.112 MG TABLET PO ONE (22:16)
[2017-12-08] MEDS ORDERED: LEVOTHYROXINE SODIUM 0.112 MG TABLET ONE (22:47)
[2017-12-08 23:30] VITALS: BP 165/58
== END 2017-12-08 23:21 | disposition home or self-care (01) ==
LOC: ER 17:52
DX: E03.9 Hypothyroidism, unspecified (principal); T38.1X6A Underdosing of thyroid hormones and substitutes, initial encounter; Z91.128 Patient's intentional underdosing of medication regimen for other reason; Z91.14 Patient's other noncompliance with medication regimen; R00.2 Palpitations; R53.1 Weakness; J44.9 Chronic obstructive pulmonary disease, unspecified; Z99.81 Dependence on supplemental oxygen; E11.51 Type 2 diabetes mellitus with diabetic peripheral angiopathy without gangrene; I10 Essential (primary) hypertension; Z88.8 Allergy status to other drugs, medicaments and biological substances; Z88.4 Allergy status to anesthetic agent; Z88.1 Allergy status to other antibiotic agents; Z88.5 Allergy status to narcotic agent; Z91.018 Allergy to other foods; Z91.011 Allergy to milk products; Z91.010 Allergy to peanuts
CPT/HCPCS: 93005; 99285; 36415; 87040; 87086; 82553; 82550; 83690; 84443; 85025; 87077; 87088; 80053; 81001; 84484; 87186; 82803; 83605; 71045; 71275; 93010; A9270

== ENCOUNTER 2018-01-24 14:01 | Inpatient (IN) | payer MEDICARE ==
--- NOTE | 2018-01-24 14:46 | RADIOLOGY REPORT (SQ) ---
EXAM DESCRIPTION: CHEST SINGLE VIEW COMPLETED DATE/TIME: 01/24/2018 2:27 pm REASON FOR STUDY: sob COMPARISON: 12/08/2017 EXAM PARAMETERS: NUMBER OF VIEWS: One view. TECHNIQUE: Single frontal radiographic view of the chest acquired. RADIATION DOSE: NA LIMITATIONS: None. FINDINGS: LUNGS AND PLEURA: Lungs demonstrate stable chronic bibasilar predominant interstitial opac ity. No superimposed focal consolidation. No pleural effusion or pneumothorax. MEDIASTINUM AND HILAR STRUCTURES: No masses. Contour normal. HEART AND VASCULAR STRUCTURES: Enlarged, stable. Atherosclerotic aorta. BONES: No acute bony abnormality. HARDWARE: None in the chest. OTHER: No other significant finding. IMPRESSION: Stable basilar predominant chronic interstitial opacities, likely component of interstit ial edema. Stable large cardiac silhouette. TECHNICAL DOCUMENTATION: JOB ID: [id number] [employer]- All Rights Reserved Reading location - IP/workstation name: [email or web address]
[2018-01-24 15:27] LABS: APPEARANCE,URINE CLEAR; BILIRUBIN,URINE NEGATIVE (NEGATIVE); COLOR,URINE YELLOW; GLUCOSE, URINE NEGATIVE (NEGATIVE); KETONES,URINE NEGATIVE (NEGATIVE); LEUKOCYTE ESTERASE,URINE NEGATIVE (NEGATIVE); NITRITE,URINE NEGATIVE (NEGATIVE); PROTEIN,URINE 100 mg/dL (NEGATIVE); URINE SPECIFIC GRAVITY 1.012; UROBILINOGEN,URINE NEGATIVE mg/dL (<2.0)
[2018-01-24] MEDS ORDERED: METHYLPREDNISOLONE INJ 125 MG/2 ML SDV IV ONE (15:47)
[2018-01-24 15:48] LABS: ALANINE AMINOTRANSFERASE 28 U/L (9-52); ALBUMIN 3.8 g/dL (3.5-5.0); ALKALINE PHOSPHATASE 67 U/L (38-126); ANION GAP 5 (5-19); ASPARTATE AMINO TRANSFERASE 34 U/L (14-36); BILIRUBIN,DIRECT 0.4 mg/dL (0.0-0.4); BILIRUBIN,TOTAL 0.6 mg/dL (0.2-1.3); BLOOD UREA NITROGEN 26 mg/dL (7-20); CALCIUM 8.7 mg/dL (8.4-10.2); CARBON DIOXIDE 38 mmol/L (22-30); CHLORIDE 97 mmol/L (98-107); CREATINE KINASE 46 U/L (30-135); GLUCOSE 147 mg/dL (75-110); POTASSIUM 5.9 mmol/L (3.6-5.0); SODIUM 140.1 mmol/L (137-145); TOTAL PROTEIN 7.6 g/dL (6.3-8.2)
--- NOTE | 2018-01-24 15:48 | ER Document Report ---
ED General - General Chief Complaint: Shortness Of Breath Stated Complaint: DIFFICULTY BREATHING Time Seen by Provider: 01/24/18 15:25 Mode of Arrival: Medic Information source: Patient, Relative TRAVEL OUTSIDE OF THE [place] IN LAST 30 DAYS: No - HPI Notes: 72-year-old female medical history of COPD, dementia presents via EMS to the ED for complaints of wheezing and shortness of breath that started last night. States that she has been wheezing more and has been short of breath. Patient possibly taking a diuretic at home however has not been taking any noticed some swelling in her bilateral lower legs. Worse with time, nothing makes better. Daughter stated she was slightly concerned because she had seemed more confused today than she does have a history of dementia. No [id number] medications have been tried. Patient states she uses 3.5 L of oxygen for 7 of her COPD. He has any recent travel, long periods of immobilization, surgery, cancer treatments. Denies fevers, chills, chest pain,palpitations, nausea, vomiting, diarrhea, abdominal pain, hematuria,blurred vision, double vision, loss of vision, speech changes, LH, dizziness, syncope, headaches, wheezing, ST , URI, neck pain, weakness, bowel or bladder dysfunction, saddle anesthesia, numbness or tingling in bilateral upper or lower extremities equally, muscle paralysis, weakness in bilateral upper or lower extremities equally or rash. - Related Data Allergies/Adverse Reactions: allopurinol [From Zyloprim] Allergy (Verified 10/06/14 22:21) alprazolam [From Xanax] Allergy (Verified 10/06/14 22:21) amitriptyline HCl [From Elavil] Allergy (Verified 10/06/14 22:21) atorvastatin calcium [From Lipitor] Allergy (Verified 10/06/14 22:21) belladonna alkaloids [From Bellergal-S] Allergy (Verified 10/06/14 22:21) bupivacaine [Bupivacaine] Allergy (Verified 10/06/14 22:21) cefuroxime axetil [From Ceftin] Allergy (Verified 10/06/14 22:21) celecoxib [From Celebrex] Allergy (Verified 10/06/14 22:21) cimetidine [From Tagamet] Allergy (Verified 10/06/14 22:21) ciprofloxacin [Ciprofloxacin] Allergy (Verified 10/06/14 22:21) codeine [Codeine] Allergy (Verified 10/06/14 22:21) doxepin HCl [From Sinequan] Allergy (Verified 10/06/14 22:21) ergotamine tartrate [From Bellergal-S] Allergy (Verified 10/06/14 22:21) fluoxetine HCl [From Prozac] Allergy (Verified 10/06/14 22:21) hydroxyzine HCl [From Atarax] Allergy (Verified 10/06/14 22:21) indigotindisulfonic acid [From Indigo [place]] Allergy (Verified 10/11/15 07:27) ipratropium bromide [From DuoNeb] Allergy (Verified 10/06/14 22:21) lemon oil Allergy (Verified 10/06/14 22:21) malathion Allergy (Verified 10/06/14 22:21) mefenamic acid Allergy (Verified 10/06/14 22:21) metformin HCl [From Glucophage] Allergy (Verified 10/06/14 22:21) metoclopramide HCl [From Reglan] Allergy (Verified 10/06/14 22:21) Milk Containing Products Allergy (Verified 10/06/14 22:21) morphine Allergy (Verified 10/06/14 22:21) naproxen sodium [From Anaprox] Allergy (Verified 10/06/14 22:21) nefazodone HCl [From Serzone] Allergy (Verified 10/06/14 22:21) peanut Allergy (Verified 10/06/14 22:21) phenobarbital [From Bellergal-S] Allergy (Verified 10/06/14 22:21) phenylephrine tannate [From Deconsal CT] Allergy (Verified 10/06/14 22:21) pyrilamine tannate [From Deconsal CT] Allergy (Verified 10/06/14 22:21) sertraline HCl [From Zoloft] Allergy (Verified 10/06/14 22:21) sucralfate [From Carafate] Allergy (Verified 10/06/14 22:21) tolterodine tartrate [From Detrol] Allergy (Verified 10/06/14 22:21) tramadol Allergy (Verified 10/06/14 22:21) trazodone HCl [From Desyrel] Allergy (Verified 10/06/14 22:21) my-e Allergy (Uncoded 10/06/14 22:21) renuzil Allergy (Uncoded 10/06/14 22:21) surgical steel Allergy (Uncoded 10/06/14 22:21) Past Medical History - General Information source: Patient, Relative - Social History Smoking Status: Current Every Day Smoker Family History: CAD, DM, Hypertension - Past Medical History Cardiac Medical History: Reports: Hx Congestive Heart Failure, Hx Hypertension, Hx Peripheral Vascular Disease Pulmonary Medical History: Reports: Hx COPD Endocrine Medical History: Reports: Hx Diabetes Mellitus Type 2, Hx Hypothyroidism Renal/ Medical History: Denies: Hx Peritoneal Dialysis GI Medical History: Reports: Hx Gastroesophageal Reflux Disease. Denies: Hx Crohn's Disease, Hx Ulcerative Colitis Musculoskeletal Medical History: Reports Hx Arthritis, Denies Hx Gout Skin Medical History: Denies Hx Eczema, Denies Hx Psoriasis Psychiatric Medical History: Denies: Hx Bipolar Disorder, Hx Personality Disorder, Hx Schizoaffective Disorder Traumatic Medical History: Denies: Hx Traumatic Brain Injury Past Surgical History: Reports: Hx Cholecystectomy, Hx Orthopedic Surgery - L Wrist - Immunizations Immunizations up to date: No Hx Diphtheria, Pertussis, Tetanus Vaccination: No Review of Systems - Review of Systems Constitutional: See HPI EENT: No symptoms reported Cardiovascular: No symptoms reported Respiratory: See HPI Gastrointestinal: No symptoms reported Genitourinary: No symptoms reported Female Genitourinary: No symptoms reported Musculoskeletal: No symptoms reported Skin: No symptoms reported Hematologic/Lymphatic: No symptoms reported Neurological/Psychological: See HPI Physical Exam - Vital signs Vitals: Pulse Ox 94 01/24/18 15:12 - Notes Notes: PHYSICAL EXAMINATION: GENERAL: Well-appearing, well-nourished and in no acute distress. HEAD: Atraumatic, normocephalic. EYES: Pupils equal round and reactive to light, extraocular movements intact, conjunctiva are normal. ENT: Nares patent, oropharynx clear without exudates. Moist mucous membranes. NECK: Normal range of motion, supple without lymphadenopathy LUNGS: Expiratory wheezes in bilaterally. HEART: Regular rate and rhythm without murmurs ABDOMEN: Soft, nontender, nondistended abdomen. No guarding, no rebound. No masses appreciated. Female : deferred Musculoskeletal: Normal range of motion, no pitting or edema. No cyanosis. NEUROLOGICAL: Cranial nerves grossly intact. Normal speech, normal gait. Normal sensory, motor exams. PERRLA, EOMI. Full motor and sensory function throughout. 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 Tongue midline. No pronator drift. No ataxia. Neck with APROM. Raises eyebrows. Strength is 5 out of 5 in bilateral upper and lower extremities equally.Speaks in full sentences. No weakness on one side. Romberg gait steady able to walk straight line. PSYCH: Normal mood, normal affect. SKIN: Warm, Dry, normal turgor, no rashes or lesions noted. Course - Re-evaluation Re-evalutation: 01/24/18 16:28 72-year-old female who is afebrile, vitals stable and in slight distress who is on oxygen continuously presents for evaluation of shortness of breath. Patient cannot receive drug allergies to medications. BNP is 2660, x-ray shows that patient does have stable chronic interstitial opacities likely component of interstitial edema, no other acute findings seen by radiology. Urinalysis negative for leukocytes, nitrates, hematuria or proteinuria. CMP does show a hyperkalemia with a potassium of 5.9, creatinine is 0.89, BUN 26. First set of troponin negative, EKG negative for STEMI, no ST segment elevations. CBC negative for leukocytosis or anemia. Patient is on continuous oxygen while in the emergency room. Neuro exam was negative for any focal neurological deficits , CT head negative for any acute findings, no stroke noted. Patient given Solu- Medrol 125 IV for wheezing. This is likely COPD exacerbation with mild CHF. Patient given calcium gluconate for hyperkalemia. Patient states that she is not allergic to nebulizer treatments and states she would like to try one. She says that was placed in error when she did come to [facility] prior to this visit. Also give patient IV Lasix to help his CHF as well as hyperkalemia . consulted with Dr. Gian Gillette, patient's primary care provider as well as admitting physician for COPD exacerbation, nausea HF with hyperkalemia. We will admit to [facility] to his service at 1630. All questions concerns answered by this provider. Patient agrees with plan of care to admission to [facility] for further management and treatment of her current condition. - Vital Signs Vital signs: Temp Pulse Resp BP Pulse Ox 94 01/24/18 15:12 - Laboratory Result Diagrams: 01/24/18 14:45 01/24/18 14:45 Laboratory results interpreted by me: 01/24/18 01/24/18 01/24/18 14:45 14:45 14:45 Hgb 11.5 L Hct 35.8 L RDW 15.3 H Potassium 5.9 H Chloride 97 L Carbon Dioxide 38 H BUN 26 H Glucose 147 H NT-Pro-B Natriuret Pep 2660 H Urine Protein 01/24/18 14:45 Hgb Hct RDW Potassium Chloride Carbon Dioxide BUN Glucose NT-Pro-B Natriuret Pep Urine Protein 100 H Discharge - Discharge Clinical Impression: COPD exacerbation, Hyperkalemia, Acute exacerbation of chronic obstructive pulmonary disease (COPD), Congestive heart failure Condition: Stable Disposition: ADMITTED INPATIENT Admitting Provider: Nain Unit Admitted: IMCU Referrals: RONAL JOYA MD [Primary Care Provider] - Follow up as needed
[2018-01-24 16:04] LABS: ABSOLUTE BASOPHILS # (AUTO) 0.1 10^3/uL (0.0-0.2); ABSOLUTE EOSINOPHILS # (AUTO) 0.1 10^3/uL (0.0-0.6); ABSOLUTE LYMPHOCYTES (AUTO) 1.5 10^3/uL (0.5-4.7); ABSOLUTE MONOCYTES (AUTO) 0.6 10^3/uL (0.1-1.4); ABSOLUTE NEUT (AUTO) 6.4 10^3/uL (1.7-8.2); BASOPHILS % (AUTO) 0.6 % (0-2); EOSINOPHILS % (AUTO) 0.7 % (0-6); HEMATOCRIT 35.8 % (36.0-47.0); HEMOGLOBIN 11.5 g/dL (12.0-15.5); LYMPHOCYTES % (AUTO) 17.2 % (13-45); MEAN CORPUSCULAR HEMOGLOBIN 30.3 pg (27.0-33.4); MEAN CORPUSCULAR VOLUME 95 fl (80-97); MONOCYTES % (AUTO) 6.5 % (3-13); PLATELET COUNT 161 10^3/uL (150-450); RED BLOOD COUNT 3.79 10^6/uL (3.72-5.28); RED CELL DISTRIBUTION WIDTH 15.3 % (11.5-14.0); TOTAL CELLS COUNTED % (AUTO) 100 %; WHITE BLOOD COUNT 8.6 10^3/uL (4.0-10.5)
[2018-01-24 16:06] LABS: CREATINE KINASE MB 1.65 ng/mL (<4.55); NT PRO BNP 2660 pg/mL (5-900)
--- NOTE | 2018-01-24 16:08 | RADIOLOGY REPORT (SQ) ---
EXAM DESCRIPTION: CT HEAD WITHOUT COMPLETED DATE/TIME: 01/24/2018 3:58 pm REASON FOR STUDY: confusion COMPARISON: None. TECHNIQUE: Axial images acquired through the brain without intravenous contrast. Images reviewed wi th bone, brain and subdural windows. Additional sagittal and coronal reconstructions were generated. Images stored on PACS. All CT scanners at this facility use dose modulation, iterative reconstruction, and/or weight based d osing when appropriate to reduce radiation dose to as low as reasonably achievable (ALARA). [facility]: Dose Right [facility]: CareDose [facility]: Dose Right [facility]: Teradose 4D [facility]: Ricebook RADIATION DOSE: CT Rad equipment meets quality standard of care and radiation dose reduction techniq ues were employed. CTDIvol: 48.6 mGy. DLP: 855 mGy-cm. mGy. LIMITATIONS: None. FINDINGS: VENTRICLES: Prominent. CEREBRUM: No masses. No hemorrhage. No midline shift. Areas of low density in the white matter mos t likely due to chronic micro-vascular ischemic change. No evidence for acute infarction. CEREBELLUM: No masses. No hemorrhage. No alteration of density. No evidence for acute infarction. EXTRAAXIAL SPACES: Mild age-related involutional change. No fluid collections. No masses. ORBITS AND GLOBE: No intra- or extraconal masses. Normal contour of globe without masses. CALVARIUM: No fracture. PARANASAL SINUSES: Trace fluid left maxillary sinus. SOFT TISSUES: No mass or hematoma. OTHER: No other significant finding. IMPRESSION: MILD CHRONIC CHANGES OF ATROPHY AND MICROVASCULAR ISCHEMIA. NO ACUTE PROCESS. EVIDENCE OF ACUTE STROKE: NO. TECHNICAL DOCUMENTATION: JOB ID: [id number] Quality ID # [id number]: Final reports with documentation of one or more dose reduction techniques (e.g., Au tomated exposure control, adjustment of the mA and/or kV according to patient size, use of iterative reconstruction technique) 2010 [email or web address]- All Rights Reserved Reading location - IP/workstation name: [email or web address]
[2018-01-24 16:16] LABS: TROPONIN I < 0.012 ng/mL
[2018-01-24] MEDS ORDERED: CALCIUM GLUCONATE 1000 MG/10 ML INJ IV ONE (16:20)
[2018-01-24] MEDS ORDERED: FUROSEMIDE INJ/PF 40 MG/4 ML SDV IV ONE ×2 (16:40→19:15)
[2018-01-24] MEDS ORDERED: IPRATROPIUM/ALBUTEROL 0.5-2.5 MG/3 ML AMPUL NEB ONE (16:40)
[2018-01-24 16:59] LABS: VENOUS BLOOD BASE EXCESS 5.5 mmol/L; VENOUS BLOOD HCO3 34.9 mmol/L (20-32); VENOUS BLOOD PH 7.26 (7.30-7.42)
[2018-01-24] MEDS ORDERED: METHYLPREDNISOLONE INJ 125 MG/2 ML SDV ONE (18:13)
[2018-01-24] MEDS ORDERED: ENOXAPARIN SODIUM INJ 40 MG/0.4 ML DISP.SYRIN SUBCUT SCH (20:30)
[2018-01-24 20:52] LABS: INTERNATIONAL RATION (INR) 1.02; PARTIAL THROMBOPLASTIN TIME 34.9 SEC (23.5-35.8); PROTHROMBIN TIME 13.9 SEC (11.4-15.4)
[2018-01-24 21:22] LABS: LIPASE 22.9 U/L (23-300)
[2018-01-24 21:23] LABS: AMYLASE < 30 U/L (30-110)
--- NOTE | 2018-01-24 21:27 | EKG REPORT ---
SEVERITY:- OTHERWISE NORMAL ECG - SINUS RHYTHM BORDERLINE RIGHT AXIS DEVIATION : Confirmed by: Nidhi Frank MD 24-Jan-2018 21:27:00
[2018-01-24 21:35] LABS: CREATINE KINASE MB 1.75 ng/mL (<4.55)
[2018-01-24 21:40] LABS: FREE T4 (FREE THYROXINE) 1.02 ng/dL (0.78-2.19)
[2018-01-24 21:43] LABS: TROPONIN I < 0.012 ng/mL
[2018-01-24 21:54] LABS: THYROID STIMULATING HORMONE 12.1 uIU/mL (0.47-4.68)
[2018-01-24 22:11] LABS: ARTERIAL BLOOD BASE EXCESS 7.5 mmol/L; ARTERIAL BLOOD H2CO3 2.15 mmol/L (1.05-1.35); ARTERIAL BLOOD HCO3 35.9 mmol/L (20-24); ARTERIAL BLOOD O2 SATURATION 26.6 % (94-98); ARTERIAL BLOOD PH 7.32 (7.35-7.45); ARTERIAL BLOOD TOTAL CO2 38.1 mmol/L (21-25)
[2018-01-24 22:15] LABS: ARTERIAL BLOOD FIO2 30%; ARTERIAL BLOOD PCO2 71.4 mmHg (35-45); ARTERIAL BLOOD PO2 19.9 mmHg (80-100)
--- NOTE | 2018-01-24 22:35 | PDOC H&P ---
History of Present Illness Admission Date/PCP: 01/24/18 16:52 RONAL JOYA History of Present Illness: GABINO ALEXANDER is a 72 year old female, she has past medical history of chronic obstructive pulmonary disease, recalcitrant smoker, she came to the emergency room for evaluation of shortness of breath, wheezing since last night , she is also more confused than usual, patient is poorly compliant, she has not been to the office for a while, patient's daughter suspects that she may have dementia. She has chronic respiratory failure, vent dependent. She requires noninvasive positive pressure ventilation, BiPAP the initial venous ABG that was done demonstrated pH 7.26 PCO2 86 bicarbonate 34.5 consistent with acute hypercapnic respiratory acidosis, chest x-ray did not show any acute infiltrate to suggest pneumonia Past Medical History Cardiac Medical History: Reports: Hypertension, Peripheral Vascular Disease Pulmonary Medical History: Reports: Chronic Obstructive Pulmonary Disease (COPD) Endocrine Medical History: Reports: Diabetes Mellitus Type 2, Hypothyroidism GI Medical History: Reports: Gastroesophageal Reflux Disease Musculoskeltal Medical History: Reports: Arthritis Past Surgical History Past Surgical History: Reports: Cholecystectomy, Orthopedic Surgery - L Wrist Social History Smoking Status: Current Every Day Smoker Frequency of Alcohol Use: None Hx Recreational Drug Use: No Drugs: None Hx Prescription Drug Abuse: No - Advance Directive Resuscitation Status: Full Code Family History Family History: CAD, DM, Hypertension Parental Family History Reviewed: Yes Children Family History Reviewed: Yes Sibling(s) Family History Reviewed.: Yes Medication/Allergy Home Medications: Albuterol Sulfate [Proair HFA Inhalation Aerosol 8.5 gm MDI] 1 puff IH Q8HP PRN 01/24/18 Albuterol Sulfate [Ventolin 0.083% Neb 2.5 mg/3 mL Ampul] 3 ml NEB Q6HP PRN Allergies/Adverse Reactions: allopurinol [From Zyloprim] Allergy (Verified 01/24/18 17:48) alprazolam [From Xanax] Allergy (Verified 01/24/18 17:48) amitriptyline HCl [From Elavil] Allergy (Verified 01/24/18 17:48) atorvastatin calcium [From Lipitor] Allergy (Verified 01/24/18 17:48) belladonna alkaloids [From Bellergal-S] Allergy (Verified 01/24/18 17:48) bupivacaine [Bupivacaine] Allergy (Verified 01/24/18 17:48) cefuroxime axetil [From Ceftin] Allergy (Verified 01/24/18 17:48) celecoxib [From Celebrex] Allergy (Verified 01/24/18 17:48) cimetidine [From Tagamet] Allergy (Verified 01/24/18 17:48) ciprofloxacin [Ciprofloxacin] Allergy (Verified 01/24/18 17:48) codeine [Codeine] Allergy (Verified 01/24/18 17:48) doxepin HCl [From Sinequan] Allergy (Verified 01/24/18 17:48) ergotamine tartrate [From Bellergal-S] Allergy (Verified 01/24/18 17:48) fluoxetine HCl [From Prozac] Allergy (Verified 01/24/18 17:48) hydroxyzine HCl [From Atarax] Allergy (Verified 01/24/18 17:48) indigotindisulfonic acid [From Indigo [place]] Allergy (Verified 01/24/18 17:48) ipratropium bromide [From DuoNeb] Allergy (Verified 01/24/18 17:48) lemon oil Allergy (Verified 01/24/18 17:48) malathion Allergy (Verified 01/24/18 17:48) mefenamic acid Allergy (Verified 01/24/18 17:48) metformin HCl [From Glucophage] Allergy (Verified 01/24/18 17:48) metoclopramide HCl [From Reglan] Allergy (Verified 01/24/18 17:48) Milk Containing Products Allergy (Verified 01/24/18 17:48) morphine Allergy (Verified 01/24/18 17:48) naproxen sodium [From Anaprox] Allergy (Verified 01/24/18 17:48) nefazodone HCl [From Serzone] Allergy (Verified 01/24/18 17:48) peanut Allergy (Verified 01/24/18 17:48) phenobarbital [From Bellergal-S] Allergy (Verified 01/24/18 17:48) phenylephrine tannate [From Deconsal CT] Allergy (Verified 01/24/18 17:48) pyrilamine tannate [From Deconsal CT] Allergy (Verified 01/24/18 17:48) sertraline HCl [From Zoloft] Allergy (Verified 01/24/18 17:48) sucralfate [From Carafate] Allergy (Verified 01/24/18 17:48) tolterodine tartrate [From Detrol] Allergy (Verified 01/24/18 17:48) tramadol Allergy (Verified 01/24/18 17:48) trazodone HCl [From Desyrel] Allergy (Verified 01/24/18 17:48) my-e Allergy (Uncoded 01/24/18 17:48) renuzil Allergy (Uncoded 01/24/18 17:48) surgical steel Allergy (Uncoded 01/24/18 17:48) Review of Systems Constitutional: PRESENT: weakness Eyes: ABSENT: visual disturbances Ears: ABSENT: hearing changes Cardiovascular: PRESENT: dyspnea on exertion Respiratory: PRESENT: cough, dyspnea Gastrointestinal: ABSENT: abdominal pain, constipation, diarrhea, hematemesis, hematochezia, nausea, vomiting Genitourinary: ABSENT: dysuria, hematuria Musculoskeletal: ABSENT: joint swelling Integumentary: ABSENT: rash, wounds Neurological: ABSENT: abnormal gait, abnormal speech, confusion, dizziness, focal weakness, syncope Psychiatric: ABSENT: anxiety, depression, homidical ideation, suicidal ideation Endocrine: ABSENT: cold intolerance, heat intolerance, menstrual abnormalities, polydipsia, polyuria Hematologic/Lymphatic: ABSENT: easy bleeding, easy bruising, lymphadenopathy Physical Exam Vital Signs: Temp Pulse Resp BP Pulse Ox 98.4 F 64 20 147/64 H 100 01/24/18 21:59 01/24/18 22:10 01/24/18 21:59 01/24/18 21:59 01/24/18 21:59 Intake & Output 01/23/18 01/24/18 01/25/18 06:59 06:59 06:59 Weight 80.9 kg General appearance: PRESENT: severe distress Head exam: PRESENT: atraumatic, normocephalic Eye exam: PRESENT: PERRLA Neck exam: PRESENT: full ROM Respiratory exam: PRESENT: wheezes Cardiovascular exam: PRESENT: RRR, +S1, +S2 Vascular exam: PRESENT: normal capillary refill GI/Abdominal exam: PRESENT: normal bowel sounds, soft Rectal exam: PRESENT: deferred Neurological exam: PRESENT: alert, CN II-XII grossly intact Skin exam: PRESENT: dry, intact, warm Results Laboratory Results: 01/24/18 01/24/18 01/24/18 20:32 20:32 20:32 Carbonic Acid HCO3/H2CO3 Ratio ABG pH ABG pCO2 ABG pO2 ABG HCO3 ABG O2 Saturation ABG Base Excess FiO2 Ammonia 12.1 Amylase < 30 L Lipase 22.9 L TSH 12.10 H Free T4 1.02 01/24/18 21:34 Carbonic Acid 2.15 H HCO3/H2CO3 Ratio 16:1 ABG pH 7.32 L ABG pCO2 71.4 H* ABG pO2 19.9 L* ABG HCO3 35.9 H ABG O2 Saturation 26.6 L ABG Base Excess 7.5 FiO2 30% Ammonia Amylase Lipase TSH Free T4 01/24/18 01/24/18 20:32 20:32 Creatine Kinase 51 CK-MB (CK-2) 1.75 Troponin I < 0.012 Impressions: Chest X-Ray 01/24/18 14:11 IMPRESSION: Stable basilar predominant chronic interstitial opacities, likely component of interstitial edema. Stable large cardiac silhouette. Head CT 01/24/18 15:41 IMPRESSION: MILD CHRONIC CHANGES OF ATROPHY AND MICROVASCULAR ISCHEMIA. NO ACUTE PROCESS. EVIDENCE OF ACUTE STROKE: NO. Assessment & Plan - Diagnosis (1) Acute hypercapnic respiratory failure Is this a current diagnosis for this admission?: Yes Plan: She has acute hypercapnic respiratory failure, she requires noninvasive positive pressure ventilation with BiPAP (2) Acute exacerbation of chronic obstructive pulmonary disease (COPD) Is this a current diagnosis for this admission?: Yes Plan: She has acute COPD, start Solu-Medrol, bronchodilators
[2018-01-25] MEDS: IPRATROPIUM/ALBUTEROL 0.5-2.5 MG/3 ML AMPUL NEB PRN (00:10)
[2018-01-25 00:13] LABS: URINE AMPHETAMINES SCREEN NEGATIVE; URINE BARBITURATES SCREEN NEGATIVE; URINE BENZODIAZEPINES SCREEN NEGATIVE; URINE COCAINE SCREEN NEGATIVE; URINE MARIJUANA (THC) SCREEN NEGATIVE; URINE METHADONE SCREEN NEGATIVE; URINE PHENCYCLIDINE SCREEN NEGATIVE
[2018-01-25] MEDS: METHYLPREDNISOLONE INJ 125 MG/2 ML SDV IV SCH ×3 (02:39→18:37)
[2018-01-25 03:10] LABS: TROPONIN I < 0.012 ng/mL
[2018-01-25 06:20] LABS: ABSOLUTE LYMPHOCYTES (AUTO) 0.4 10^3/uL (0.5-4.7); ABSOLUTE NEUT (AUTO) 5.5 10^3/uL (1.7-8.2); BASOPHILS % (AUTO) 0.7 % (0-2); HEMATOCRIT 33.9 % (36.0-47.0); HEMOGLOBIN 11.1 g/dL (12.0-15.5); LYMPHOCYTES % (AUTO) 6.3 % (13-45); MEAN CORPUSCULAR HEMOGLOBIN 30.1 pg (27.0-33.4); MEAN CORPUSCULAR HGB CONC 32.8 g/dL (32.0-36.0); MEAN CORPUSCULAR VOLUME 92 fl (80-97); MONOCYTES % (AUTO) 0.6 % (3-13); PLATELET COUNT 141 10^3/uL (150-450); RED BLOOD COUNT 3.69 10^6/uL (3.72-5.28); SEGMENTED NEUTROPHILS % (AUTO) 92.4 % (42-78); TOTAL CELLS COUNTED % (AUTO) 100 %
[2018-01-25 06:39] LABS: ALANINE AMINOTRANSFERASE 25 U/L (9-52); ALBUMIN 3.3 g/dL (3.5-5.0); ALKALINE PHOSPHATASE 62 U/L (38-126); ANION GAP 6 (5-19); ASPARTATE AMINO TRANSFERASE 22 U/L (14-36); BILIRUBIN,DIRECT 0.2 mg/dL (0.0-0.4); BILIRUBIN,TOTAL 0.4 mg/dL (0.2-1.3); BLOOD UREA NITROGEN 29 mg/dL (7-20); CALCIUM 8.8 mg/dL (8.4-10.2); CARBON DIOXIDE 38 mmol/L (22-30); CHLORIDE 95 mmol/L (98-107); CHOLESTEROL 130.29 mg/dL (0-200); GLUCOSE 220 mg/dL (75-110); POTASSIUM 5.3 mmol/L (3.6-5.0); SODIUM 139.4 mmol/L (137-145); TOTAL PROTEIN 6.5 g/dL (6.3-8.2); TRIGLYCERIDES 113 mg/dL (<150)
[2018-01-25 06:50] LABS: DIRECT LDL 102 mg/dL (<100)
[2018-01-25 09:14] LABS: CREATINE KINASE MB 1.19 ng/mL (<4.55)
[2018-01-25 09:18] LABS: TROPONIN I < 0.012 ng/mL
[2018-01-25] MEDS: ENOXAPARIN SODIUM INJ 40 MG/0.4 ML DISP.SYRIN SUBCUT SCH (10:24)
[2018-01-25] MEDS ORDERED: DEXTROSE 50%-WATER SYRINGE 25 GM/50 ML DOSE IV PRN (16:14)
[2018-01-25] MEDS ORDERED: DEXTROSE 40% GEL 15 GM TUBE PO PRN (16:14)
[2018-01-25] MEDS ORDERED: GLUCAGON,HUMAN RECOMB 1 MG INJ IM PRN (16:14)
[2018-01-25] MEDS ORDERED: DEXTROSE 50%-WATER SYRINGE 12.5 GM/25 ML DOSE IV PRN (16:14)
[2018-01-25] MEDS ORDERED: DEXTROSE 40% GEL 15 GM TUBE X 2 PO PRN (16:14)
[2018-01-25 17:00] LABS: ARTERIAL BLOOD BASE EXCESS 11.2 mmol/L; ARTERIAL BLOOD H2CO3 1.77 mmol/L (1.05-1.35); ARTERIAL BLOOD HCO3 37.7 mmol/L (20-24); ARTERIAL BLOOD O2 SATURATION 92.3 % (94-98); ARTERIAL BLOOD PCO2 58.7 mmHg (35-45); ARTERIAL BLOOD PH 7.43 (7.35-7.45); ARTERIAL BLOOD PO2 63.7 mmHg (80-100); ARTERIAL BLOOD TOTAL CO2 39.5 mmol/L (21-25)
[2018-01-25 17:01] LABS: ARTERIAL BLOOD FIO2 5 L
--- NOTE | 2018-01-25 20:00 | PDOC PROGRESS REPORT ---
Subjective Progress Note for:: 01/25/18 Subjective:: Patient seen by the bedside, she was admitted yesterday when she presented with acute hypercapnic respiratory failure Reason For Visit: ACUTE HYPERCAPNIC RESPIRATORY FAILURE Physical Exam Vital Signs: Temp Pulse Resp BP Pulse Ox 98.4 F 62 22 H 137/57 H 96 01/25/18 19:20 01/25/18 19:20 01/25/18 19:20 01/25/18 19:20 01/25/18 19:20 Intake & Output 01/24/18 01/25/18 01/26/18 06:59 06:59 06:59 Intake Total 1702 Balance 1702 Weight 81.1 kg General appearance: PRESENT: mild distress Eye exam: PRESENT: PERRLA Respiratory exam: PRESENT: wheezes Cardiovascular exam: PRESENT: +S1, +S2 GI/Abdominal exam: PRESENT: soft Neurological exam: PRESENT: alert Results Laboratory Results: 01/25/18 06:09 01/25/18 06:09 01/24/18 01/24/18 01/24/18 20:32 20:32 20:32 WBC RBC Hgb Hct MCV MCH MCHC RDW Plt Count Seg Neutrophils % Lymphocytes % Monocytes % Eosinophils % Basophils % Absolute Neutrophils Absolute Lymphocytes Absolute Monocytes Absolute Eosinophils Absolute Basophils Carbonic Acid HCO3/H2CO3 Ratio ABG pH ABG pCO2 ABG pO2 ABG HCO3 ABG O2 Saturation ABG Base Excess FiO2 Sodium Potassium Chloride Carbon Dioxide Anion Gap BUN Creatinine Est GFR ( Amer) Est GFR (Non-Af Amer) Glucose Calcium Total Bilirubin AST ALT Alkaline Phosphatase Ammonia 12.1 Total Protein Albumin Triglycerides Cholesterol LDL Cholesterol Direct VLDL Cholesterol HDL Cholesterol Amylase < 30 L Lipase 22.9 L TSH 12.10 H Free T4 1.02 01/24/18 01/25/18 01/25/18 21:34 06:09 06:09 WBC 6.0 RBC 3.69 L Hgb 11.1 L Hct 33.9 L MCV 92 MCH 30.1 MCHC 32.8 RDW 15.0 H Plt Count 141 L Seg Neutrophils % 92.4 H Lymphocytes % 6.3 L Monocytes % 0.6 L Eosinophils % 0.0 Basophils % 0.7 Absolute Neutrophils 5.5 Absolute Lymphocytes 0.4 L Absolute Monocytes 0.0 L Absolute Eosinophils 0.0 Absolute Basophils 0.0 Carbonic Acid 2.15 H HCO3/H2CO3 Ratio 16:1 ABG pH 7.32 L ABG pCO2 71.4 H* ABG pO2 19.9 L* ABG HCO3 35.9 H ABG O2 Saturation 26.6 L ABG Base Excess 7.5 FiO2 30% Sodium 139.4 Potassium 5.3 H Chloride 95 L Carbon Dioxide 38 H Anion Gap 6 BUN 29 H Creatinine 0.90 Est GFR ( Amer) > 60 Est GFR (Non-Af Amer) > 60 Glucose 220 H Calcium 8.8 Total Bilirubin 0.4 AST 22 ALT 25 Alkaline Phosphatase 62 Ammonia Total Protein 6.5 Albumin 3.3 L Triglycerides 113 Cholesterol 130.29 LDL Cholesterol Direct 102 H VLDL Cholesterol 23.0 HDL Cholesterol 30 L Amylase Lipase TSH Free T4 01/25/18 16:40 WBC RBC Hgb Hct MCV MCH MCHC RDW Plt Count Seg Neutrophils % Lymphocytes % Monocytes % Eosinophils % Basophils % Absolute Neutrophils Absolute Lymphocytes Absolute Monocytes Absolute Eosinophils Absolute Basophils Carbonic Acid 1.77 H HCO3/H2CO3 Ratio 21:1 ABG pH 7.43 ABG pCO2 58.7 H ABG pO2 63.7 L ABG HCO3 37.7 H ABG O2 Saturation 92.3 L ABG Base Excess 11.2 FiO2 5 L Sodium Potassium Chloride Carbon Dioxide Anion Gap BUN Creatinine Est GFR ( Amer) Est GFR (Non-Af Amer) Glucose Calcium Total Bilirubin AST ALT Alkaline Phosphatase Ammonia Total Protein Albumin Triglycerides Cholesterol LDL Cholesterol Direct VLDL Cholesterol HDL Cholesterol Amylase Lipase TSH Free T4 01/24/18 01/24/18 01/25/18 20:32 20:32 02:25 Creatine Kinase 51 46 CK-MB (CK-2) 1.75 Troponin I < 0.012 01/25/18 01/25/18 01/25/18 02:25 08:29 08:29 Creatine Kinase 38 CK-MB (CK-2) 1.40 1.19 Troponin I < 0.012 < 0.012 Impressions: Chest X-Ray 01/24/18 14:11 IMPRESSION: Stable basilar predominant chronic interstitial opacities, likely component of interstitial edema. Stable large cardiac silhouette. Head CT 01/24/18 15:41 IMPRESSION: MILD CHRONIC CHANGES OF ATROPHY AND MICROVASCULAR ISCHEMIA. NO ACUTE PROCESS. EVIDENCE OF ACUTE STROKE: NO. 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
[2018-01-25] MEDS: INSULIN LISPRO 100 UNIT/ML 3 ML VIAL SUBCUT PRN (20:25)
[2018-01-26] MEDS: METHYLPREDNISOLONE INJ 125 MG/2 ML SDV IV SCH ×3 (01:32→17:19)
[2018-01-26 04:58] LABS: HEMATOCRIT 32.3 % (36.0-47.0); HEMOGLOBIN 10.8 g/dL (12.0-15.5); MEAN CORPUSCULAR HEMOGLOBIN 30.6 pg (27.0-33.4); MEAN CORPUSCULAR HGB CONC 33.3 g/dL (32.0-36.0); MEAN CORPUSCULAR VOLUME 92 fl (80-97); PLATELET COUNT 154 10^3/uL (150-450); RED BLOOD COUNT 3.51 10^6/uL (3.72-5.28); RED CELL DISTRIBUTION WIDTH 15.6 % (11.5-14.0)
[2018-01-26 05:24] LABS: ALANINE AMINOTRANSFERASE 23 U/L (9-52); ALBUMIN 3.5 g/dL (3.5-5.0); ALKALINE PHOSPHATASE 59 U/L (38-126); ASPARTATE AMINO TRANSFERASE 22 U/L (14-36); BILIRUBIN,DIRECT 0.3 mg/dL (0.0-0.4); BILIRUBIN,TOTAL 0.5 mg/dL (0.2-1.3); BLOOD UREA NITROGEN 31 mg/dL (7-20); GLUCOSE 199 mg/dL (75-110); POTASSIUM 4.7 mmol/L (3.6-5.0); TOTAL PROTEIN 6.6 g/dL (6.3-8.2)
[2018-01-26 05:25] LABS: ABSOLUTE LYMPHOCYTES# (MANUAL) 0.2 10^3/uL (0.5-4.7); ABSOLUTE MONOCYTES # (MANUAL) 0.1 10^3/uL (0.1-1.4); ABSOLUTE NEUTROPHILS# (MANUAL) 10.7 10^3/uL (1.7-8.2); BASOPHILS % (MANUAL) 0 % (0-2); EOSINOPHILS % (MANUAL) 0 % (0-6); LYMPHOCYTES % (MANUAL) 2 % (13-45); MONOCYTES % (MANUAL) 1 % (3-13); NUCLEATED RED BLOOD CELLS 1 /100 WBC (0); SEGMENTED NEUTROPHILS % (MAN) 97 % (42-78); TOTAL CELLS COUNTED 100
[2018-01-26 05:26] LABS: ANISOCYTOSIS 1+; PLATELET COMMENT ADEQUATE
[2018-01-26 05:29] LABS: CARBON DIOXIDE 38 mmol/L (22-30); CHLORIDE 95 mmol/L (98-107); SODIUM 137.5 mmol/L (137-145)
[2018-01-26 05:35] LABS: ANION GAP 5 (5-19)
[2018-01-26] MEDS: ENOXAPARIN SODIUM INJ 40 MG/0.4 ML DISP.SYRIN SUBCUT SCH (09:03)
[2018-01-26] MEDS: INSULIN LISPRO 100 UNIT/ML 3 ML VIAL SUBCUT PRN ×4 (09:03→22:08)
[2018-01-26] MEDS: IPRATROPIUM/ALBUTEROL 0.5-2.5 MG/3 ML AMPUL NEB PRN (11:42)
--- NOTE | 2018-01-26 14:09 | PDOC PROGRESS REPORT ---
Subjective Progress Note for:: 01/26/18 Subjective:: Patient still experience productive coughing and wheezing. Remain on BiPAP support due to hypercapnia. No chest pain. No nausea, vomiting, abdominal pain. No fever or chills. Reason For Visit: ACUTE HYPERCAPNIC RESPIRATORY FAILURE Physical Exam Vital Signs: Temp Pulse Resp BP Pulse Ox 98.5 F 58 L 20 148/64 H 96 01/26/18 11:59 01/26/18 13:58 01/26/18 11:59 01/26/18 11:59 01/26/18 11:59 Intake & Output 01/25/18 01/26/18 01/27/18 06:59 06:59 06:59 Intake Total 1702 Balance 1702 Weight 81.1 kg 77.9 kg General appearance: PRESENT: mild distress - on supplemental oxygen via nasal cannula., obese Head exam: PRESENT: atraumatic, normocephalic Eye exam: PRESENT: conjunctiva pink, EOMI, PERRLA. ABSENT: scleral icterus Ear exam: PRESENT: normal external ear exam Mouth exam: PRESENT: moist Respiratory exam: PRESENT: decreased breath sounds, prolonged expiratory phas, rhonchi, wheezes. ABSENT: accessory muscle use Cardiovascular exam: PRESENT: RRR, +S1, +S2. ABSENT: systolic murmur Vascular exam: ABSENT: pallor GI/Abdominal exam: PRESENT: normal bowel sounds, soft. ABSENT: distended, guarding, mass, organolmegaly, rebound, tenderness Extremities exam: ABSENT: pedal edema Musculoskeletal exam: PRESENT: normal inspection Neurological exam: PRESENT: alert, awake, oriented to person, oriented to place , oriented to time, oriented to situation, CN II-XII grossly intact. ABSENT: motor sensory deficit Psychiatric exam: PRESENT: appropriate affect, normal mood. ABSENT: homicidal ideation, suicidal ideation Skin exam: PRESENT: dry, intact, warm. ABSENT: cyanosis, rash Results Laboratory Results: 01/26/18 04:17 01/26/18 04:17 01/25/18 01/26/18 01/26/18 16:40 04:17 04:17 WBC 11.0 H RBC 3.51 L Hgb 10.8 L Hct 32.3 L MCV 92 MCH 30.6 MCHC 33.3 RDW 15.6 H Plt Count 154 Seg Neutrophils % Not Reportable Lymphocytes % Not Reportable Monocytes % Not Reportable Eosinophils % Not Reportable Basophils % Not Reportable Absolute Neutrophils Not Reportable Absolute Lymphocytes Not Reportable Absolute Monocytes Not Reportable Absolute Eosinophils Not Reportable Absolute Basophils Not Reportable Carbonic Acid 1.77 H HCO3/H2CO3 Ratio 21:1 ABG pH 7.43 ABG pCO2 58.7 H ABG pO2 63.7 L ABG HCO3 37.7 H ABG O2 Saturation 92.3 L ABG Base Excess 11.2 FiO2 5 L Sodium 137.5 Potassium 4.7 Chloride 95 L Carbon Dioxide 38 H Anion Gap 5 BUN 31 H Creatinine 0.95 Est GFR ( Amer) > 60 Est GFR (Non-Af Amer) 58 L Glucose 199 H Calcium 9.0 Total Bilirubin 0.5 AST 22 ALT 23 Alkaline Phosphatase 59 Total Protein 6.6 Albumin 3.5 01/24/18 01/24/18 01/25/18 20:32 20:32 02:25 Creatine Kinase 51 46 CK-MB (CK-2) 1.75 Troponin I < 0.012 01/25/18 01/25/18 01/25/18 02:25 08:29 08:29 Creatine Kinase 38 CK-MB (CK-2) 1.40 1.19 Troponin I < 0.012 < 0.012 Impressions: Chest X-Ray 01/24/18 14:11 IMPRESSION: Stable basilar predominant chronic interstitial opacities, likely component of interstitial edema. Stable large cardiac silhouette. Head CT 01/24/18 15:41 IMPRESSION: MILD CHRONIC CHANGES OF ATROPHY AND MICROVASCULAR ISCHEMIA. NO ACUTE PROCESS. EVIDENCE OF ACUTE STROKE: NO. Assessment & Plan - Diagnosis (1) Acute respiratory failure with hypercapnia Is this a current diagnosis for this admission?: Yes Plan: Continue BiPAP support while sleeping. Maintain on low flow oxygen supplementation via nasal cannula while awake to keep O2 sat above 93%. (2) Acute exacerbation of chronic obstructive pulmonary disease (COPD) Is this a current diagnosis for this admission?: Yes Plan: Maintain on IV Solu Medrol and bronchodilators therapy for acute exacerbation of her COPD. (3) Type 2 diabetes mellitus Qualifiers: Diabetes mellitus jail insulin use: without oil heaterman use Diabetes mellitus complication status: without complication Qualified Code(s): E11.9 - Type 2 diabetes mellitus without complications Is this a current diagnosis for this admission?: Yes Plan: Continue current medication and dietary restriction management. - Time Time Spent with patient: 25-34 minutes Medications reviewed and adjusted accordingly: Yes Anticipated discharge: Home with Homehealth Within: Other - Inpatient Certification Based on my medical assessment, after consideration of the patient's comorbidities, presenting symptoms, or acuity I expect that the services needed warrant INPATIENT care.: Yes I certify that my determination is in accordance with my understanding of Medicare's requirements for reasonable and necessary INPATIENT services [42 CFR 412.3e].: Yes Medical Necessity: Need Close Monitoring Due to Risk of Patient Decompensation, Need For IV Fluids, Need For Continuous Telemetry Monitoring, Need for Nebulizer Therapy and Monitoring of Response, Risk of Complication if Not Cared For in Hospital Post Hospital Care: D/C Multimedia Programmer Documentation - Plan Summary Plan Summary: See covering attending physician orders as per above outlined care plan.
[2018-01-27] MEDS: METHYLPREDNISOLONE INJ 125 MG/2 ML SDV IV SCH ×3 (01:15→17:13)
[2018-01-27] MEDS: INSULIN LISPRO 100 UNIT/ML 3 ML VIAL SUBCUT PRN ×5 (04:35→21:23)
[2018-01-27 05:18] LABS: HEMATOCRIT 31.4 % (36.0-47.0); HEMOGLOBIN 10.2 g/dL (12.0-15.5); MEAN CORPUSCULAR HEMOGLOBIN 30.2 pg (27.0-33.4); MEAN CORPUSCULAR HGB CONC 32.5 g/dL (32.0-36.0); MEAN CORPUSCULAR VOLUME 93 fl (80-97); PLATELET COUNT 134 10^3/uL (150-450); RED BLOOD COUNT 3.38 10^6/uL (3.72-5.28); RED CELL DISTRIBUTION WIDTH 15.4 % (11.5-14.0); WHITE BLOOD COUNT 10.9 10^3/uL (4.0-10.5)
[2018-01-27 05:53] LABS: ALANINE AMINOTRANSFERASE 21 U/L (9-52); ALBUMIN 3.3 g/dL (3.5-5.0); ALKALINE PHOSPHATASE 58 U/L (38-126); ANION GAP 8 (5-19); ASPARTATE AMINO TRANSFERASE 18 U/L (14-36); BILIRUBIN,DIRECT 0.3 mg/dL (0.0-0.4); BILIRUBIN,TOTAL 0.3 mg/dL (0.2-1.3); BLOOD UREA NITROGEN 32 mg/dL (7-20); CALCIUM 8.4 mg/dL (8.4-10.2); CARBON DIOXIDE 34 mmol/L (22-30); CHLORIDE 94 mmol/L (98-107); GLUCOSE 317 mg/dL (75-110); POTASSIUM 4.4 mmol/L (3.6-5.0); TOTAL PROTEIN 6.3 g/dL (6.3-8.2)
[2018-01-27 06:23] LABS: ABSOLUTE LYMPHOCYTES# (MANUAL) 0.3 10^3/uL (0.5-4.7); ABSOLUTE NEUTROPHILS# (MANUAL) 10.6 10^3/uL (1.7-8.2); ANISOCYTOSIS SLIGHT; BASOPHILS % (MANUAL) 0 % (0-2); EOSINOPHILS % (MANUAL) 0 % (0-6); LYMPHOCYTES % (MANUAL) 3 % (13-45); MONOCYTES % (MANUAL) 0 % (3-13); POLYCHROMASIA SLIGHT; SEGMENTED NEUTROPHILS % (MAN) 97 % (42-78); TARGET CELLS SLIGHT; TOTAL CELLS COUNTED 100
[2018-01-27 06:27] LABS: PLATELET COMMENT ADEQUATE
[2018-01-27] MEDS: ENOXAPARIN SODIUM INJ 40 MG/0.4 ML DISP.SYRIN SUBCUT SCH (09:15)
--- NOTE | 2018-01-27 13:49 | PDOC PROGRESS REPORT ---
Subjective Progress Note for:: 01/27/18 Subjective:: Patient reported improving in her productive coughing and wheezing. Requesting for Aleve at night to aide her sleep. Remain on BiPAP support due to hypercapnia. No chest pain. No nausea, vomiting, abdominal pain. There is low grade fever but no chills. Reason For Visit: ACUTE HYPERCAPNIC RESPIRATORY FAILURE Physical Exam Vital Signs: Temp Pulse Resp BP Pulse Ox 99.1 F 55 L 20 148/63 H 100 01/27/18 11:46 01/27/18 11:46 01/27/18 11:46 01/27/18 11:46 01/27/18 11:46 Intake & Output 01/26/18 01/27/18 01/28/18 06:59 06:59 06:59 Intake Total 1702 2337 Balance 1702 2337 Weight 77.9 kg 78.1 kg Physical Exam: General appearance: PRESENT: mild distress - on supplemental oxygen via nasal cannula., obese Head exam: PRESENT: atraumatic, normocephalic Eye exam: PRESENT: conjunctiva pink, EOMI, PERRLA. ABSENT: pallor, scleral icterus Ear exam: PRESENT: normal external ear exam Mouth exam: PRESENT: moist Respiratory exam: PRESENT: decreased breath sounds, minimal expiratory phase rhonchi, wheezes. ABSENT: accessory muscle use Cardiovascular exam: PRESENT: RRR, +S1, +S2. ABSENT: systolic murmur GI/Abdominal exam: PRESENT: normal bowel sounds, soft. ABSENT: distended, guarding, mass, organomegaly, rebound, tenderness Extremities exam: ABSENT: pedal edema Musculoskeletal exam: PRESENT: normal inspection Neurological exam: PRESENT: alert, awake, oriented to person, oriented to place , oriented to time, oriented to situation, CN II-XII grossly intact. ABSENT: motor sensory deficit Psychiatric exam: PRESENT: appropriate affect, normal mood. ABSENT: homicidal ideation, suicidal ideation Skin exam: PRESENT: dry, intact, warm. ABSENT: cyanosis, rash Results Laboratory Results: 01/27/18 04:24 01/27/18 04:24 01/27/18 01/27/18 04:24 04:24 WBC 10.9 H RBC 3.38 L Hgb 10.2 L Hct 31.4 L MCV 93 MCH 30.2 MCHC 32.5 RDW 15.4 H Plt Count 134 L Seg Neutrophils % Not Reportable Lymphocytes % Not Reportable Monocytes % Not Reportable Eosinophils % Not Reportable Basophils % Not Reportable Absolute Neutrophils Not Reportable Absolute Lymphocytes Not Reportable Absolute Monocytes Not Reportable Absolute Eosinophils Not Reportable Absolute Basophils Not Reportable Sodium 136.0 L Potassium 4.4 Chloride 94 L Carbon Dioxide 34 H Anion Gap 8 BUN 32 H Creatinine 1.01 Est GFR ( Amer) > 60 Est GFR (Non-Af Amer) 54 L Glucose 317 H Calcium 8.4 Total Bilirubin 0.3 AST 18 ALT 21 Alkaline Phosphatase 58 Total Protein 6.3 Albumin 3.3 L 01/24/18 01/24/18 01/25/18 20:32 20:32 02:25 Creatine Kinase 51 46 CK-MB (CK-2) 1.75 Troponin I < 0.012 01/25/18 01/25/18 01/25/18 02:25 08:29 08:29 Creatine Kinase 38 CK-MB (CK-2) 1.40 1.19 Troponin I < 0.012 < 0.012 Impressions: Chest X-Ray 01/24/18 14:11 IMPRESSION: Stable basilar predominant chronic interstitial opacities, likely component of interstitial edema. Stable large cardiac silhouette. Head CT 01/24/18 15:41 IMPRESSION: MILD CHRONIC CHANGES OF ATROPHY AND MICROVASCULAR ISCHEMIA. NO ACUTE PROCESS. EVIDENCE OF ACUTE STROKE: NO. Assessment & Plan - Diagnosis (1) Acute respiratory failure with hypercapnia Is this a current diagnosis for this admission?: Yes (2) Acute exacerbation of chronic obstructive pulmonary disease (COPD) Is this a current diagnosis for this admission?: Yes (3) Type 2 diabetes mellitus Qualifiers: Diabetes mellitus detention insulin use: without terminal clerk use Diabetes mellitus complication status: without complication Qualified Code(s): E11.9 - Type 2 diabetes mellitus without complications Is this a current diagnosis for this admission?: Yes (4) Insomnia disorder Qualifiers: Insomnia type: unspecified Qualified Code(s): G47.00 - Insomnia, unspecified Is this a current diagnosis for this admission?: Yes Plan: Start on Melatonin 5 mg po qhs prn for insomnia. (5) Urinary tract infection Qualifiers: Urinary tract infection type: site unspecified Hematuria presence: without hematuria Qualified Code(s): N39.0 - Urinary tract infection, site not specified Is this a current diagnosis for this admission?: Yes Plan: Start on IV Doripenem coverage pending urine culture final report. - Time Time Spent with patient: 25-34 minutes Medications reviewed and adjusted accordingly: Yes Anticipated discharge: Home with Homehealth Within: Other - Inpatient Certification Based on my medical assessment, after consideration of the patient's comorbidities, presenting symptoms, or acuity I expect that the services needed warrant INPATIENT care.: Yes I certify that my determination is in accordance with my understanding of Medicare's requirements for reasonable and necessary INPATIENT services [42 CFR 412.3e].: Yes Medical Necessity: Need Close Monitoring Due to Risk of Patient Decompensation, Need For IV Fluids, Need For Continuous Telemetry Monitoring, Need for Nebulizer Therapy and Monitoring of Response, Risk of Complication if Not Cared For in Hospital Post Hospital Care: D/C Stenographer Secretary Documentation - Plan Summary Plan Summary: Continue current medication management. Follow up on culture final report.
[2018-01-27] MEDS: NITROFURANTOIN MONOHYD/M-CRYST 100 MG CAPSULE PO SCH (17:14)
[2018-01-27] MEDS: MELATONIN 5 MG TABLET PO SCH (21:23)
[2018-01-28] MEDS: METHYLPREDNISOLONE INJ 125 MG/2 ML SDV IV SCH ×3 (01:40→17:59)
[2018-01-28] MEDS: ENOXAPARIN SODIUM INJ 40 MG/0.4 ML DISP.SYRIN SUBCUT SCH (09:35)
[2018-01-28] MEDS: NITROFURANTOIN MONOHYD/M-CRYST 100 MG CAPSULE PO SCH ×2 (09:35→17:59)
[2018-01-28] MEDS: INSULIN LISPRO 100 UNIT/ML 3 ML VIAL SUBCUT PRN ×3 (09:45→20:13)
[2018-01-28] MEDS ORDERED: ALBUTEROL SULFATE HFA (90 MCG/PUFF) 200 PUFF/8.5 GM MDI IH PRN (20:20)
[2018-01-28] MEDS ORDERED: ALBUTEROL SULFATE 0.083% NEB 2.5 MG/3 ML AMPUL NEB PRN (20:30)
--- NOTE | 2018-01-28 20:31 | PDOC DISCHARGE SUMMARY ---
General - Admit/Disc Date/PCP Admission Date/Primary Care Provider: 01/24/18 16:52 RONAL JOYA Discharge Date: 01/28/18 - Discharge Diagnosis (1) Acute hypercapnic respiratory failure Is this a current diagnosis for this admission?: Yes (2) Acute exacerbation of chronic obstructive pulmonary disease (COPD) Is this a current diagnosis for this admission?: Yes (3) Type 2 diabetes mellitus Is this a current diagnosis for this admission?: Yes (4) E. coli urinary tract infection Is this a current diagnosis for this admission?: Yes - Additional Information Resuscitation Status: Full Code Prescriptions: Melatonin [Melatonin 5 mg Tablet] 5 mg PO QHS #30 tablet Albuterol Sulfate [Proair HFA Inhalation Aerosol 8.5 gm MDI] 1 puff IH Q8HP PRN #2 hfa.[email or web address] PRN Reason: Fluticasone/Umeclidin/Vilanter [Trelegy 100-62.5-25 Mcg Ellipta 14 Dose/Dpi] 1 inh IH DAILY #2 inhaler Ipratropium/Albuterol Sulfate [Duoneb 3 ml Ampul] 3 ml NEB RTQ3HP PRN #120 vial.neb PRN Reason: Nitrofurantoin Monohyd/M-Cryst [Macrobid 100 mg Capsule] 100 mg PO BID #14 capsule Prednisone [Deltasone 20 mg Tablet] 40 mg PO DAILY #5 tablet Home Medications: Albuterol Sulfate [Proair HFA Inhalation Aerosol 8.5 gm MDI] 1 puff IH Q8HP PRN #2 hfa.aer.ad 01/28/18 Fluticasone/Umeclidin/Vilanter [Trelegy 100-62.5-25 Mcg Ellipta 14 Dose/Dpi] 1 inh IH DAILY #2 inhaler 01/28/18 Ipratropium/Albuterol Sulfate [Duoneb 3 ml Ampul] 3 ml NEB RTQ3HP PRN #120 vial.neb 01/28/18 Melatonin [Melatonin 5 mg Tablet] 5 mg PO QHS #30 tablet 01/28/18 Nitrofurantoin Monohyd/M-Cryst [Macrobid 100 mg Capsule] 100 mg PO BID #14 capsule 01/28/18 Prednisone [Deltasone 20 mg Tablet] 40 mg PO DAILY #5 tablet 01/28/18 History of Present Illness History of Present Illness: GABINO ALEXANDER is a 72 year old female, she has past medical history of chronic obstructive pulmonary disease, recalcitrant smoker, she came to the emergency room for evaluation of shortness of breath, wheezing since last night , she is also more confused than usual, patient is poorly compliant, she has not been to the office for a while, patient's daughter suspects that she may have dementia. She has chronic respiratory failure, vent dependent. She requires noninvasive positive pressure ventilation, BiPAP the initial venous ABG that was done demonstrated pH 7.26 PCO2 86 bicarbonate 34.5 consistent with acute hypercapnic respiratory acidosis, chest x-ray did not show any acute infiltrate to suggest pneumonia Hospital Course Hospital Course: Patient was admitted for the management of acute hypercapnic respiratory failure due to acute COPD exacerbation, she was treated with noninvasive positive pressure ventilation BiPAP machine, IV Solu-Medrol 125 mg IV every 8, bronchodilators every 2-4 hours. Patient improve on this regimen, she is a recalcitrant smoker she continues to smoke despite very severe COPD urine culture grew E. coli this was treated with Macrobid. I saw the patient today on the floor she feels much better, she no longer require noninvasive positive pressure ventilation BiPAP, she is requesting to go home she feels better, she will be discharged home. She was again counseled of the need for complete smoking cessation. Physical Exam Vital Signs: Temp Pulse Resp BP Pulse Ox 98.4 F 53 L 20 146/61 H 100 01/28/18 15:49 01/28/18 15:49 01/28/18 15:49 01/28/18 15:49 01/28/18 15:49 Intake & Output 01/27/18 01/28/18 01/29/18 06:59 06:59 06:59 Intake Total 2337 1861 1030 Balance 2337 1861 1030 Weight 78.1 kg 79.3 kg General appearance: PRESENT: no acute distress Head exam: PRESENT: atraumatic, normocephalic Eye exam: PRESENT: PERRLA Neck exam: PRESENT: full ROM Respiratory exam: PRESENT: clear to auscultation oh, rhonchi Cardiovascular exam: PRESENT: RRR, +S1, +S2 GI/Abdominal exam: PRESENT: normal bowel sounds, soft Rectal exam: PRESENT: deferred Neurological exam: PRESENT: alert, awake, oriented to person, oriented to place , oriented to time, oriented to situation, CN II-XII grossly intact Psychiatric exam: PRESENT: appropriate affect, normal mood Skin exam: PRESENT: dry, intact, warm Results Laboratory Results: 01/27/18 04:24 01/27/18 04:24 01/24/18 01/24/18 01/25/18 20:32 20:32 02:25 Creatine Kinase 51 46 CK-MB (CK-2) 1.75 Troponin I < 0.012 01/25/18 01/25/18 01/25/18 02:25 08:29 08:29 Creatine Kinase 38 CK-MB (CK-2) 1.40 1.19 Troponin I < 0.012 < 0.012 Impressions: Chest X-Ray 01/24/18 14:11 IMPRESSION: Stable basilar predominant chronic interstitial opacities, likely component of interstitial edema. Stable large cardiac silhouette. Head CT 01/24/18 15:41 IMPRESSION: MILD CHRONIC CHANGES OF ATROPHY AND MICROVASCULAR ISCHEMIA. NO ACUTE PROCESS. EVIDENCE OF ACUTE STROKE: NO. Qualifiers - * PATIENT BEING DISCHARGED WITH ANY OF THE FOLLOWING DIAGNOSIS: No
[2018-01-28] MEDS: PREDNISONE 20 MG TABLET PO SCH (21:40)
[2018-01-28] MEDS: MELATONIN 5 MG TABLET PO SCH (22:37)
[2018-01-28] MEDS: FLUTICASONE/UMECLIDIN/VILANTER 100-62.5-25 MCG/DOSE IH SCH (22:37)
[2018-01-29] MEDS: FLUTICASONE/UMECLIDIN/VILANTER 100-62.5-25 MCG/DOSE IH SCH (10:15)
[2018-01-29] MEDS: NITROFURANTOIN MONOHYD/M-CRYST 100 MG CAPSULE PO SCH ×2 (10:15→17:23)
[2018-01-29] MEDS: PREDNISONE 20 MG TABLET PO SCH (10:15)
[2018-01-29] MEDS: ENOXAPARIN SODIUM INJ 40 MG/0.4 ML DISP.SYRIN SUBCUT SCH (10:19)
[2018-01-29] MEDS: INSULIN LISPRO 100 UNIT/ML 3 ML VIAL SUBCUT PRN ×2 (10:23→13:08)
[2018-01-29 17:31] VITALS: BP 147/64
== END 2018-01-29 18:54 | disposition home or self-care (01) | DRG 189 ==
LOC: ER 14:01 → EH 16:52 → 3N 21:50
PROVIDERS: ADMIT Internal Medicine; ATTEND Internal Medicine
PROC: 5A09457 Assistance with Respiratory Ventilation, 24-96 Consecutive Hours, Continuous Positive Airway Pressure (ICD-10-PCS; 2018-01-24)
PROC: 3E02340 Introduction of Influenza Vaccine into Muscle, Percutaneous Approach (ICD-10-PCS; principal; 2018-01-29)
DX: J96.22 Acute and chronic respiratory failure with hypercapnia (principal); J44.1 Chronic obstructive pulmonary disease with (acute) exacerbation; N39.0 Urinary tract infection, site not specified; B96.20 Unspecified Escherichia coli [E. coli] as the cause of diseases classified elsewhere; F03.90 Unspecified dementia, unspecified severity, without behavioral disturbance, psychotic disturbance, mood disturbance, and anxiety; I50.9 Heart failure, unspecified; I11.0 Hypertensive heart disease with heart failure; E11.51 Type 2 diabetes mellitus with diabetic peripheral angiopathy without gangrene; K21.9 Gastro-esophageal reflux disease without esophagitis; F17.200 Nicotine dependence, unspecified, uncomplicated; E03.9 Hypothyroidism, unspecified; E87.5 Hyperkalemia; G47.00 Insomnia, unspecified; M19.90 Unspecified osteoarthritis, unspecified site; Z99.81 Dependence on supplemental oxygen; Z88.8 Allergy status to other drugs, medicaments and biological substances; Z79.51 Long term (current) use of inhaled steroids; Z79.899 Other long term (current) drug therapy; Z91.010 Allergy to peanuts; Z88.6 Allergy status to analgesic agent; Z88.1 Allergy status to other antibiotic agents; Z82.49 Family history of ischemic heart disease and other diseases of the circulatory system; Z83.3 Family history of diabetes mellitus; Z90.49 Acquired absence of other specified parts of digestive tract; Z71.6 Tobacco abuse counseling; Z23 Encounter for immunization
CPT/HCPCS: 36415; 70450; 71045; 80048; 80053; 80061; 80076; 80307; 81001; 82140; 82150; 82550; 82553; 82803; 82962; 83036; 83690; 83880; 84439; 84443; 84484; 85025; 85610; 85730; 87040; 87086; 87088; 87186; 90686; 93005; 93010; 94660; 99285; J0610; J1650; J1815; J1940; J2930; J3490; J7512; J7620; J8499

== ENCOUNTER 2018-03-06 01:56 | Emergency (ER) | payer MEDICARE ==
--- NOTE | 2018-03-06 03:32 | ER Document Report ---
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 Patient reports that she was admitted to another hospital several months ago for similar symptoms, however at that time swelling was the entire face and the tongue as well as the extremities. Currently she is "not as bad as that time, I just do not want to get that bad again." She denies pain, no fevers or chills, no other symptoms. TRAVEL OUTSIDE OF THE [place] IN LAST 30 DAYS: No - HPI Onset: Just prior to arrival Onset/Duration: Sudden Quality of pain: No pain Severity: Mild Pain Level: Denies Associated symptoms: None Exacerbated by: Denies Relieved by: Denies Similar symptoms previously: Yes Recently seen / treated by doctor: No - Related Data Allergies/Adverse Reactions: allopurinol [From Zyloprim] Allergy (Verified 03/06/18 03:47) alprazolam [From Xanax] Allergy (Verified 03/06/18 03:47) amitriptyline HCl [From Elavil] Allergy (Verified 03/06/18 03:47) atorvastatin calcium [From Lipitor] Allergy (Verified 03/06/18 03:47) belladonna alkaloids [From Bellergal-S] Allergy (Verified 03/06/18 03:47) bupivacaine [Bupivacaine] Allergy (Verified 03/06/18 03:47) cefuroxime axetil [From Ceftin] Allergy (Verified 03/06/18 03:47) celecoxib [From Celebrex] Allergy (Verified 03/06/18 03:47) cimetidine [From Tagamet] Allergy (Verified 03/06/18 03:47) ciprofloxacin [Ciprofloxacin] Allergy (Verified 03/06/18 03:47) codeine [Codeine] Allergy (Verified 03/06/18 03:47) doxepin HCl [From Sinequan] Allergy (Verified 03/06/18 03:47) ergotamine tartrate [From Bellergal-S] Allergy (Verified 03/06/18 03:47) fluoxetine HCl [From Prozac] Allergy (Verified 03/06/18 03:47) hydroxyzine HCl [From Atarax] Allergy (Verified 03/06/18 03:47) indigotindisulfonic acid [From Indigo [place]] Allergy (Verified 03/06/18 03:47) ipratropium bromide [From DuoNeb] Allergy (Verified 03/06/18 03:47) lemon oil Allergy (Verified 03/06/18 03:47) malathion Allergy (Verified 03/06/18 03:47) mefenamic acid Allergy (Verified 03/06/18 03:47) metformin HCl [From Glucophage] Allergy (Verified 03/06/18 03:47) metoclopramide HCl [From Reglan] Allergy (Verified 03/06/18 03:47) Milk Containing Products Allergy (Verified 03/06/18 03:47) morphine Allergy (Verified 03/06/18 03:47) naproxen sodium [From Anaprox] Allergy (Verified 03/06/18 03:47) nefazodone HCl [From Serzone] Allergy (Verified 03/06/18 03:47) peanut Allergy (Verified 03/06/18 03:47) phenobarbital [From Bellergal-S] Allergy (Verified 03/06/18 03:47) phenylephrine tannate [From [place] CT] Allergy (Verified 03/06/18 03:47) pyrilamine tannate [From [place] CT] Allergy (Verified 03/06/18 03:47) sertraline HCl [From Zoloft] Allergy (Verified 03/06/18 03:47) sucralfate [From Carafate] Allergy (Verified 03/06/18 03:47) tolterodine tartrate [From Detrol] Allergy (Verified 03/06/18 03:47) tramadol Allergy (Verified 03/06/18 03:47) trazodone HCl [From Desyrel] Allergy (Verified 03/06/18 03:47) my-e Allergy (Uncoded 01/24/18 17:48) renuzil Allergy (Uncoded 01/24/18 17:48) surgical steel Allergy (Uncoded 01/24/18 17:48) Past Medical History - General Information source: Patient - Social History Smoking Status: Current Every Day Smoker Frequency of alcohol use: None Drug Abuse: None Lives with: Alone Family History: CAD, DM, Hypertension Patient has suicidal ideation: No Patient has homicidal ideation: No - Past Medical History Cardiac Medical History: Reports: Hx Congestive Heart Failure, Hx Hypertension, Hx Peripheral Vascular Disease Pulmonary Medical History: Reports: Hx COPD EENT Medical History: Reports: None Neurological Medical History: Reports: None Endocrine Medical History: Reports: Hx Diabetes Mellitus Type 2, Hx Hypothyroidism Renal/ Medical History: Reports: None. Denies: Hx Peritoneal Dialysis Malignancy Medical History: Reports: None GI Medical History: Reports: Hx Gastroesophageal Reflux Disease. Denies: Hx Crohn's Disease, Hx Ulcerative Colitis Musculoskeletal Medical History: Reports Hx Arthritis, Denies Hx Gout Skin Medical History: Reports None, Denies Hx Eczema, Denies Hx Psoriasis Psychiatric Medical History: Reports: None Denies: Hx Bipolar Disorder, Hx Personality Disorder, Hx Schizoaffective D isorder Traumatic Medical History: Reports: None. Denies: Hx Traumatic Brain Injury Infectious Medical History: Reports: None Past Surgical History: Reports: Hx Cholecystectomy, Hx Orthopedic Surgery - L Wrist - Immunizations Immunizations up to date: No Hx Diphtheria, Pertussis, Tetanus Vaccination: No Review of Systems - Review of Systems Constitutional: No symptoms reported EENT: See HPI, Other - Facial swelling, left eye redness Cardiovascular: No symptoms reported Respiratory: No symptoms reported Gastrointestinal: No symptoms reported Genitourinary: No symptoms reported Female Genitourinary: No symptoms reported Musculoskeletal: No symptoms reported Skin: No symptoms reported Hematologic/Lymphatic: No symptoms reported Neurological/Psychological: No symptoms reported -: Yes All other systems reviewed and negative Physical Exam - Vital signs Vitals: Temp Pulse Resp BP Pulse Ox 97.3 F 66 20 122/48 L 93 03/06/18 02:03 03/06/18 02:03 03/06/18 02:03 03/06/18 02:03 03/06/18 02:03 Interpretation: Normal - Notes Notes: Well-appearing in no acute distress - General General appearance: Appears well, Alert - HEENT Head: Normocephalic, Atraumatic Eyes: Normal Pupils: PERRL Notes: Mild erythema and edema surrounding the left eye, no extension onto the face, no drainage or involvement of the eye or globe - Respiratory Respiratory status: No respiratory distress Chest status: Nontender Breath sounds: Normal Chest palpation: Normal - Cardiovascular Rhythm: Regular Heart sounds: Normal auscultation Murmur: No - Abdominal Inspection: Normal Distension: No distension Bowel sounds: Normal Tenderness: Nontender Organomegaly: No organomegaly - Rectal Notes: Deferred - Genitourinary Notes: Deferred - Back Back: Normal, Nontender - Extremities General upper extremity: Normal inspection, Nontender, Normal color, Normal ROM, Normal temperature General lower extremity: Normal inspection, Nontender, Normal color, Normal ROM, Normal temperature, Normal weight bearing. No: Roman's sign - Neurological Neuro grossly intact: Yes Cognition: Normal Orientation: AAOx4 Gustavo Coma Scale Eye Opening: Spontaneous Gustavo Coma Scale Verbal: Oriented Goldsmith Coma Scale Motor: Obeys Commands Gustavo Coma Scale Total: 15 Speech: Normal Motor strength normal: LUE, RUE, LLE, RLE Sensory: Normal - Psychological Associated symptoms: Normal affect, Normal mood - Skin Skin Temperature: Warm Skin Moisture: Dry Skin Color: Normal Course - Re-evaluation Re-evalutation: 03/06/18 07:06 Blood work is unremarkable. Most likely represents either recurrent idiopathic edema versus early periorbital cellulitis. Patient is already been given IV vancomycin. Given lack of fever, normal and benign appearance, and grossly unremarkable labs, patient will be discharged home with return precautions and follow-up. Patient voices understanding and agreeing with the plan. - Vital Signs Vital signs: Temp Pulse Resp BP Pulse Ox 97.9 F 66 13 140/55 H 91 L 03/06/18 06:27 03/06/18 02:03 03/06/18 06:01 03/06/18 06:01 03/06/18 06:01 - Laboratory Result Diagrams: 03/06/18 02:15 03/06/18 02:15 Laboratory results interpreted by me: 03/06/18 03/06/18 03/06/18 02:15 02:15 02:15 Hgb 10.7 L Hct 34.4 L MCHC 31.2 L RDW 17.2 H Chloride 92 L Carbon Dioxide 42 H* BUN 25 H Est GFR (Non-Af Amer) 55 L Glucose 129 H NT-Pro-B Natriuret Pep 2010 H Albumin 3.4 L Urine Protein Urine Urobilinogen Ur Leukocyte Esterase 03/06/18 05:15 Hgb Hct MCHC RDW Chloride Carbon Dioxide BUN Est GFR (Non-Af Amer) Glucose NT-Pro-B Natriuret Pep Albumin Urine Protein 100 H Urine Urobilinogen 4.0 H Ur Leukocyte Esterase MODERATE H Discharge - Discharge Clinical Impression: Facial cellulitis Condition: Good Disposition: HOME, SELF-CARE Instructions: Cellulitis ([facility]) Additional Instructions: Please take your medications as prescribed and follow-up with your primary physician as instructed. Return to the emergency department if you experience increased swelling, difficulty breathing, high fevers, or have any other concerning symptom. Prescriptions: Doxycycline Hyclate 100 mg PO BID #14 capsule Referrals: RONAL JOYA MD [Primary Care Provider] - Follow up as needed Print Language: Vietnamese
[2018-03-06] MEDS ORDERED: METHYLPREDNISOLONE INJ 125 MG/2 ML SDV IV ONE (03:58)
[2018-03-06] MEDS ORDERED: VANCOMYCIN HCL INJ 1000 MG VIAL IV ONE (03:58)
[2018-03-06 04:13] LABS: ABSOLUTE BASOPHILS # (AUTO) 0.1 10^3/uL (0.0-0.2); ABSOLUTE EOSINOPHILS # (AUTO) 0.1 10^3/uL (0.0-0.6); ABSOLUTE LYMPHOCYTES (AUTO) 1.7 10^3/uL (0.5-4.7); ABSOLUTE MONOCYTES (AUTO) 0.7 10^3/uL (0.1-1.4); ABSOLUTE NEUT (AUTO) 7.2 10^3/uL (1.7-8.2); BASOPHILS % (AUTO) 0.5 % (0-2); EOSINOPHILS % (AUTO) 0.8 % (0-6); HEMATOCRIT 34.4 % (36.0-47.0); HEMOGLOBIN 10.7 g/dL (12.0-15.5); LYMPHOCYTES % (AUTO) 17.5 % (13-45); MEAN CORPUSCULAR HEMOGLOBIN 27.2 pg (27.0-33.4); MEAN CORPUSCULAR HGB CONC 31.2 g/dL (32.0-36.0); MEAN CORPUSCULAR VOLUME 87 fl (80-97); MONOCYTES % (AUTO) 7.4 % (3-13); PLATELET COUNT 183 10^3/uL (150-450); RED BLOOD COUNT 3.95 10^6/uL (3.72-5.28); RED CELL DISTRIBUTION WIDTH 17.2 % (11.5-14.0); SEGMENTED NEUTROPHILS % (AUTO) 73.8 % (42-78); TOTAL CELLS COUNTED % (AUTO) 100 %; WHITE BLOOD COUNT 9.8 10^3/uL (4.0-10.5)
[2018-03-06 04:18] LABS: ALANINE AMINOTRANSFERASE 19 U/L (9-52); ALBUMIN 3.4 g/dL (3.5-5.0); ALKALINE PHOSPHATASE 66 U/L (38-126); ASPARTATE AMINO TRANSFERASE 21 U/L (14-36); BILIRUBIN,DIRECT 0.3 mg/dL (0.0-0.4); BILIRUBIN,TOTAL 0.6 mg/dL (0.2-1.3); BLOOD UREA NITROGEN 25 mg/dL (7-20); CALCIUM 8.5 mg/dL (8.4-10.2); GLUCOSE 129 mg/dL (75-110); POTASSIUM 4.6 mmol/L (3.6-5.0); TOTAL PROTEIN 6.7 g/dL (6.3-8.2)
[2018-03-06 04:34] LABS: CHLORIDE 92 mmol/L (98-107); SODIUM 139.6 mmol/L (137-145)
[2018-03-06 04:35] LABS: ANION GAP 6 (5-19)
[2018-03-06 04:38] LABS: CARBON DIOXIDE 42 mmol/L (22-30)
[2018-03-06 05:35] LABS: APPEARANCE,URINE CLOUDY; BILIRUBIN,URINE NEGATIVE (NEGATIVE); COLOR,URINE YELLOW; GLUCOSE, URINE NEGATIVE (NEGATIVE); KETONES,URINE NEGATIVE (NEGATIVE); LEUKOCYTE ESTERASE,URINE MODERATE (NEGATIVE); NITRITE,URINE NEGATIVE (NEGATIVE); PROTEIN,URINE 100 mg/dL (NEGATIVE); URINE SPECIFIC GRAVITY 1.012
[2018-03-06 10:26] VITALS: BP 101/74
== END 2018-03-06 10:26 | disposition home or self-care (01) ==
LOC: ER 01:56
DX: L03.211 Cellulitis of face (principal); J44.9 Chronic obstructive pulmonary disease, unspecified; F17.200 Nicotine dependence, unspecified, uncomplicated; I50.9 Heart failure, unspecified; I11.0 Hypertensive heart disease with heart failure; E11.9 Type 2 diabetes mellitus without complications; E03.9 Hypothyroidism, unspecified; Z88.6 Allergy status to analgesic agent; Z88.3 Allergy status to other anti-infective agents; Z91.010 Allergy to peanuts; Z99.81 Dependence on supplemental oxygen; Z90.49 Acquired absence of other specified parts of digestive tract
CPT/HCPCS: 99285; 96375; 96365; 36415; 85025; 80053; 81001; 83880; J2930; J3370

== ENCOUNTER 2018-04-11 17:15 | Inpatient (IN) | payer MEDICARE ==
[2018-04-11 17:51] LABS: ABSOLUTE BASOPHILS # (AUTO) 0.1 10^3/uL (0.0-0.2); ABSOLUTE LYMPHOCYTES (AUTO) 1.3 10^3/uL (0.5-4.7); ABSOLUTE MONOCYTES (AUTO) 0.8 10^3/uL (0.1-1.4); ABSOLUTE NEUT (AUTO) 13.4 10^3/uL (1.7-8.2); BASOPHILS % (AUTO) 0.4 % (0-2); EOSINOPHILS % (AUTO) 0.2 % (0-6); HEMATOCRIT 32.3 % (36.0-47.0); HEMOGLOBIN 9.9 g/dL (12.0-15.5); LYMPHOCYTES % (AUTO) 8.3 % (13-45); MEAN CORPUSCULAR HEMOGLOBIN 26.3 pg (27.0-33.4); MEAN CORPUSCULAR HGB CONC 30.6 g/dL (32.0-36.0); MEAN CORPUSCULAR VOLUME 86 fl (80-97); MONOCYTES % (AUTO) 5.3 % (3-13); PLATELET COUNT 259 10^3/uL (150-450); RED BLOOD COUNT 3.75 10^6/uL (3.72-5.28); RED CELL DISTRIBUTION WIDTH 18.5 % (11.5-14.0); SEGMENTED NEUTROPHILS % (AUTO) 85.8 % (42-78); TOTAL CELLS COUNTED % (AUTO) 100 %; WHITE BLOOD COUNT 15.6 10^3/uL (4.0-10.5)
[2018-04-11 18:05] LABS: INTERNATIONAL RATION (INR) 1.01; PROTHROMBIN TIME 13.8 SEC (11.4-15.4)
[2018-04-11] MEDS: MAGNESIUM SULFATE/D5W 1 GM/100 ML RTUPB IV SCH ×2 (18:05→18:45)
[2018-04-11 18:11] LABS: ALANINE AMINOTRANSFERASE 13 U/L (9-52); ALBUMIN 4.1 g/dL (3.5-5.0); ALKALINE PHOSPHATASE 69 U/L (38-126); ASPARTATE AMINO TRANSFERASE 29 U/L (14-36); BILIRUBIN,DIRECT 0.4 mg/dL (0.0-0.4); BILIRUBIN,TOTAL 0.5 mg/dL (0.2-1.3); BLOOD UREA NITROGEN 25 mg/dL (7-20); CHLORIDE 93 mmol/L (98-107); GLUCOSE 235 mg/dL (75-110); POTASSIUM 4.4 mmol/L (3.6-5.0); SODIUM 140.8 mmol/L (137-145); TOTAL PROTEIN 7.8 g/dL (6.3-8.2)
[2018-04-11 18:19] LABS: ANION GAP 9 (5-19); CARBON DIOXIDE 39 mmol/L (22-30)
--- NOTE | 2018-04-11 18:21 | RADIOLOGY REPORT (SQ) ---
EXAM DESCRIPTION: CHEST SINGLE VIEW COMPLETED DATE/TIME: 04/11/2018 6:02 pm REASON FOR STUDY: bed 18 sepsis protocol COMPARISON: 01/24/2018 EXAM PARAMETERS: NUMBER OF VIEWS: One view. TECHNIQUE: Single frontal radiographic view of the chest acquired. RADIATION DOSE: NA LIMITATIONS: None. FINDINGS: LUNGS AND PLEURA: There is considerable opacification in both lung bases, left more than r ight. Cannot exclude mild pulmonary edema. MEDIASTINUM AND HILAR STRUCTURES: No masses. Contour normal. HEART AND VASCULAR STRUCTURES: Cardiomegaly. BONES: No acute findings. HARDWARE: None in the chest. OTHER: No other significant finding. IMPRESSION: Cardiomegaly with mild pulmonary edema. Bilateral lower lobe airspace disease concernin g for bilateral pneumonia. TECHNICAL DOCUMENTATION: JOB ID: [id number] [employer]- All Rights Reserved Reading location - IP/workstation name: [email or web address]
[2018-04-11 19:27] LABS: ARTERIAL BLOOD BASE EXCESS 9.9 mmol/L; ARTERIAL BLOOD H2CO3 2.28 mmol/L (1.05-1.35); ARTERIAL BLOOD HCO3 38.2 mmol/L (20-24); ARTERIAL BLOOD O2 SATURATION 92.1 % (94-98); ARTERIAL BLOOD PH 7.32 (7.35-7.45); ARTERIAL BLOOD PO2 70.7 mmHg (80-100); ARTERIAL BLOOD TOTAL CO2 40.5 mmol/L (21-25)
[2018-04-11 19:28] LABS: ARTERIAL BLOOD FIO2 100%
[2018-04-11 19:56] LABS: ARTERIAL BLOOD PCO2 75.6 mmHg (35-45)
[2018-04-11] MEDS ORDERED: MEROPENEM 1 GM VIAL IV ONE (20:00)
[2018-04-11] MEDS ORDERED: AZTREONAM INJ 1 GM VIAL IV ONE (20:17)
--- NOTE | 2018-04-11 20:26 | ER Document Report ---
ED General - General Chief Complaint: Breathing Difficulty Stated Complaint: DIFFICULTY BREATHING Time Seen by Provider: 04/11/18 17:45 Primary Care Provider: RONAL JOYA MD [Primary Care Provider] - Follow up as needed TRAVEL OUTSIDE OF THE [place] IN LAST 30 DAYS: No - HPI Notes: Patient presents emergency department for evaluation of cough and shortness of breath. She states that she has 2 days. She is oxygen dependent at home. She denies any fevers or chills. No nausea or vomiting. She denies any pain at this time. She does feel short of breath. She states is not getting relief from her breathing treatments at home. - Related Data Allergies/Adverse Reactions: allopurinol [From Zyloprim] Allergy (Verified 03/06/18 03:47) alprazolam [From Xanax] Allergy (Verified 03/06/18 03:47) amitriptyline HCl [From Elavil] Allergy (Verified 03/06/18 03:47) atorvastatin calcium [From Lipitor] Allergy (Verified 03/06/18 03:47) belladonna alkaloids [From Bellergal-S] Allergy (Verified 03/06/18 03:47) bupivacaine [Bupivacaine] Allergy (Verified 03/06/18 03:47) cefuroxime axetil [From Ceftin] Allergy (Verified 03/06/18 03:47) celecoxib [From Celebrex] Allergy (Verified 03/06/18 03:47) cimetidine [From Tagamet] Allergy (Verified 03/06/18 03:47) ciprofloxacin [Ciprofloxacin] Allergy (Verified 03/06/18 03:47) codeine [Codeine] Allergy (Verified 03/06/18 03:47) doxepin HCl [From Sinequan] Allergy (Verified 03/06/18 03:47) ergotamine tartrate [From Bellergal-S] Allergy (Verified 03/06/18 03:47) fluoxetine HCl [From Prozac] Allergy (Verified 03/06/18 03:47) hydroxyzine HCl [From Atarax] Allergy (Verified 03/06/18 03:47) indigotindisulfonic acid [From Indigo [place]] Allergy (Verified 03/06/18 03:47) ipratropium bromide [From DuoNeb] Allergy (Verified 03/06/18 03:47) lemon oil Allergy (Verified 03/06/18 03:47) malathion Allergy (Verified 03/06/18 03:47) mefenamic acid Allergy (Verified 03/06/18 03:47) metformin HCl [From Glucophage] Allergy (Verified 03/06/18 03:47) metoclopramide HCl [From Reglan] Allergy (Verified 03/06/18 03:47) Milk Containing Products Allergy (Verified 03/06/18 03:47) morphine Allergy (Verified 03/06/18 03:47) naproxen sodium [From Anaprox] Allergy (Verified 03/06/18 03:47) nefazodone HCl [From Serzone] Allergy (Verified 03/06/18 03:47) peanut Allergy (Verified 03/06/18 03:47) phenobarbital [From Bellergal-S] Allergy (Verified 03/06/18 03:47) phenylephrine tannate [From Deconsal CT] Allergy (Verified 03/06/18 03:47) pyrilamine tannate [From Deconsal CT] Allergy (Verified 03/06/18 03:47) sertraline HCl [From Zoloft] Allergy (Verified 03/06/18 03:47) sucralfate [From Carafate] Allergy (Verified 03/06/18 03:47) tolterodine tartrate [From Detrol] Allergy (Verified 03/06/18 03:47) tramadol Allergy (Verified 03/06/18 03:47) trazodone HCl [From Desyrel] Allergy (Verified 03/06/18 03:47) my-e Allergy (Uncoded 01/24/18 17:48) renuzil Allergy (Uncoded 01/24/18 17:48) surgical steel Allergy (Uncoded 01/24/18 17:48) Past Medical History - General Information source: Patient - Social History Smoking Status: Current Every Day Smoker Frequency of alcohol use: None Drug Abuse: None Family History: CAD, DM, Hypertension Patient has suicidal ideation: No Patient has homicidal ideation: No - Past Medical History Cardiac Medical History: Reports: Hx Congestive Heart Failure, Hx Hypertension, Hx Peripheral Vascular Disease Pulmonary Medical History: Reports: Hx COPD Endocrine Medical History: Reports: Hx Diabetes Mellitus Type 2, Hx Hypothyroidism Renal/ Medical History: Denies: Hx Peritoneal Dialysis GI Medical History: Reports: Hx Gastroesophageal Reflux Disease. Denies: Hx Crohn's Disease, Hx Ulcerative Colitis Musculoskeletal Medical History: Reports Hx Arthritis, Denies Hx Gout Skin Medical History: Denies Hx Eczema, Denies Hx Psoriasis Psychiatric Medical History: Denies: Hx Bipolar Disorder, Hx Personality Disorder, Hx Schizoaffective Disorder Traumatic Medical History: Denies: Hx Traumatic Brain Injury Past Surgical History: Reports: Hx Cholecystectomy, Hx Orthopedic Surgery - L Wrist - Immunizations Immunizations up to date: No Hx Diphtheria, Pertussis, Tetanus Vaccination: No Review of Systems - Review of Systems Constitutional: Malaise EENT: No symptoms reported Cardiovascular: No symptoms reported Respiratory: See HPI Gastrointestinal: No symptoms reported Musculoskeletal: No symptoms reported Skin: No symptoms reported Neurological/Psychological: No symptoms reported Physical Exam - Vital signs Vitals: Temp Resp BP Pulse Ox 98.9 F 19 142/52 H 85 L 04/11/18 17:22 04/11/18 17:22 04/11/18 17:22 04/11/18 17:22 Interpretation: Hypoxic - Notes Notes: Vital signs reviewed, please see chart. Patient is hypoxic with some mild respiratory distress. Head is normal cephalic and atraumatic. Pupils are equal, round, reactive to light. Heart is regular rate and rhythm. Lungs show actively diminished breath sounds with scant expiratory wheezes throughout. Abdomen is soft, nontender, normoactive bowel sounds. Extremities show no cyanosis, no posterior calf tenderness. Peripheral pulses are equal. Skin is warm and dry. Patient is awake and alert, oriented, no focal neurological deficits. Course - Re-evaluation Re-evalutation: 04/11/18 20:23 Patient presented to the emergency department for evaluation. I was notified immediately that the patient was hypoxic. Respiratory therapy was called and the patient was placed on BiPAP. She was monitored and had some improvement throughout the course of her stay. Laboratory evaluation revealed an elevated white blood cell count. Her lactate was normal. Chest x-ray showed mild pulmonary vascular congestion but bilateral pneumonia. She has multiple allergies. IV fluids were not given in the septic patient secondary to her history of congestive heart failure and mild coronary vascular congestion noted on chest x-ray. Her ABG revealed hypercarbic respiratory failure. I did reexamine the patient multiple times. She continues to mentate normally. She is clinically improving, I do not feel the need to advance her to an invasive airway. I did discuss this patient with her primary care physician, Dr. Gillette. He asked that the patient be given aztreonam, as she has tolerated that in the past. We will admit her for further care. - Vital Signs Vital signs: Temp Pulse Resp BP Pulse Ox 98.9 F 23 H 142/52 H 92 04/11/18 17:22 04/11/18 17:46 04/11/18 17:22 04/11/18 17:46 - Laboratory Result Diagrams: 04/11/18 17:24 04/11/18 17:24 Laboratory results interpreted by me: 04/11/18 04/11/18 04/11/18 17:24 17:24 17:39 WBC 15.6 H Hgb 9.9 L Hct 32.3 L MCH 26.3 L MCHC 30.6 L RDW 18.5 H Seg Neutrophils % 85.8 H Lymphocytes % 8.3 L Absolute Neutrophils 13.4 H Carbonic Acid ABG pH ABG pCO2 ABG pO2 ABG HCO3 ABG Total CO2 ABG O2 Saturation Chloride 93 L Carbon Dioxide 39 H BUN 25 H Est GFR (Non-Af Amer) 58 L Glucose 235 H POC Glucose 242 H 04/11/18 19:00 WBC Hgb Hct MCH MCHC RDW Seg Neutrophils % Lymphocytes % Absolute Neutrophils Carbonic Acid 2.28 H ABG pH 7.32 L ABG pCO2 75.6 H* ABG pO2 70.7 L ABG HCO3 38.2 H ABG Total CO2 40.5 H ABG O2 Saturation 92.1 L Chloride Carbon Dioxide BUN Est GFR (Non-Af Amer) Glucose POC Glucose - EKG Interpretation by Me Additional EKG results interpreted by me: 04/11/18 20:24 EKG reveals a sinus mechanism with a rate of 70 bpm. Normal axis, incomplete right bundle branch block. Nonspecific lateral ST changes. Discharge - Discharge Clinical Impression: Acute respiratory failure with hypercapnia, Acute exacerbation of chronic obstructive pulmonary disease (COPD), Pneumonia, Sepsis Condition: Stable Disposition: ADMITTED INPATIENT Admitting Provider: Nain Unit Admitted: IMCU Referrals: RONAL JOYA MD [Primary Care Provider] - Follow up as needed
[2018-04-11] MEDS ORDERED: AZTREONAM 1 GM in DEXTROSE 5%-WATER 50 ML IV SCH (21:00)
[2018-04-11 21:10] LABS: APPEARANCE,URINE SLIGHTLY-CLOUDY; BILIRUBIN,URINE NEGATIVE (NEGATIVE); COLOR,URINE YELLOW; GLUCOSE, URINE 50 mg/dL (NEGATIVE); KETONES,URINE NEGATIVE (NEGATIVE); LEUKOCYTE ESTERASE,URINE TRACE (NEGATIVE); NITRITE,URINE NEGATIVE (NEGATIVE); PROTEIN,URINE 100 mg/dL (NEGATIVE); URINE SPECIFIC GRAVITY 1.016; UROBILINOGEN,URINE NEGATIVE mg/dL (<2.0)
[2018-04-11] MEDS ORDERED: GUAIFENESIN SYRP 200 MG/10 ML UDC PO PRN (21:40)
[2018-04-11] MEDS ORDERED: DEXTROSE 40% GEL 15 GM TUBE PO PRN ×2 (21:46)
[2018-04-11] MEDS ORDERED: DEXTROSE 50%-WATER 25 GM/50 ML DISP.SYRIN IV PRN ×2 (21:46)
[2018-04-11] MEDS ORDERED: GLUCAGON,HUMAN RECOMB 1 MG INJ IM PRN (21:46)
[2018-04-11] MEDS: INSULIN LISPRO 100 UNIT/ML 3 ML VIAL SUBCUT SCH (22:16)
[2018-04-11] MEDS: HEPARIN SOD (PORCINE) 5,000 UNIT/ML 1 ML SYRINGE SUBCUT SCH (22:17)
--- NOTE | 2018-04-11 22:18 | EKG REPORT ---
SEVERITY:- ABNORMAL ECG - SINUS RHYTHM NONSPECIFIC T ABNORMALITIES, LATERAL LEADS BORDERLINE PROLONGED QT INTERVAL : Confirmed by: Melissa Menendez 11-Apr-2018 22:17:49
[2018-04-11 22:22] LABS: NT PRO BNP 1570 pg/mL (5-900)
[2018-04-11 22:23] LABS: TROPONIN I < 0.012 ng/mL
[2018-04-12] MEDS: ALBUTEROL SULFATE 0.083% NEB 2.5 MG/3 ML AMPUL NEB PRN ×2 (00:58→11:06)
[2018-04-12] MEDS ORDERED: ALBUTEROL SULFATE 0.083% NEB 2.5 MG/3 ML AMPUL NEB PRN (04:47)
[2018-04-12 06:41] LABS: HEMATOCRIT 28.2 % (36.0-47.0); HEMOGLOBIN 8.6 g/dL (12.0-15.5); MEAN CORPUSCULAR HEMOGLOBIN 25.9 pg (27.0-33.4); MEAN CORPUSCULAR HGB CONC 30.5 g/dL (32.0-36.0); MEAN CORPUSCULAR VOLUME 85 fl (80-97); PLATELET COUNT 218 10^3/uL (150-450); RED BLOOD COUNT 3.32 10^6/uL (3.72-5.28); RED CELL DISTRIBUTION WIDTH 18.4 % (11.5-14.0)
[2018-04-12 06:48] LABS: ARTERIAL BLOOD BASE EXCESS 11.5 mmol/L; ARTERIAL BLOOD H2CO3 2.14 mmol/L (1.05-1.35); ARTERIAL BLOOD HCO3 38.7 mmol/L (20-24); ARTERIAL BLOOD O2 SATURATION 97.4 % (94-98); ARTERIAL BLOOD PH 7.35 (7.35-7.45); ARTERIAL BLOOD PO2 106.1 mmHg (80-100); ARTERIAL BLOOD TOTAL CO2 40.9 mmol/L (21-25)
[2018-04-12 06:50] LABS: ARTERIAL BLOOD FIO2 80%
[2018-04-12 07:01] LABS: ALANINE AMINOTRANSFERASE 22 U/L (9-52); ALBUMIN 3.6 g/dL (3.5-5.0); ALKALINE PHOSPHATASE 63 U/L (38-126); ANION GAP 10 (5-19); ASPARTATE AMINO TRANSFERASE 16 U/L (14-36); BILIRUBIN,DIRECT 0.2 mg/dL (0.0-0.4); BILIRUBIN,TOTAL 0.3 mg/dL (0.2-1.3); BLOOD UREA NITROGEN 22 mg/dL (7-20); CALCIUM 8.8 mg/dL (8.4-10.2); CARBON DIOXIDE 37 mmol/L (22-30); CHLORIDE 92 mmol/L (98-107); CREATINE KINASE 27 U/L (30-135); GLUCOSE 283 mg/dL (75-110); POTASSIUM 4.5 mmol/L (3.6-5.0); SODIUM 138.9 mmol/L (137-145); TOTAL PROTEIN 6.5 g/dL (6.3-8.2)
[2018-04-12 07:03] LABS: ABSOLUTE LYMPHOCYTES# (MANUAL) 1.5 10^3/uL (0.5-4.7); ABSOLUTE MONOCYTES # (MANUAL) 0.2 10^3/uL (0.1-1.4); ABSOLUTE NEUTROPHILS# (MANUAL) 19.3 10^3/uL (1.7-8.2); BAND NEUTROPHILS % (MANUAL) 5 % (3-5); BASOPHILS % (MANUAL) 0 % (0-2); EOSINOPHILS % (MANUAL) 0 % (0-6); LYMPHOCYTES % (MANUAL) 7 % (13-45); MONOCYTES % (MANUAL) 1 % (3-13); SEGMENTED NEUTROPHILS % (MAN) 87 % (42-78); TOTAL CELLS COUNTED 100
[2018-04-12 07:05] LABS: ANISOCYTOSIS 2+; HYPOCHROMASIA 2+; PLATELET COMMENT ADEQUATE; STOMATOCYTES 1+
[2018-04-12] MEDS: HEPARIN SOD (PORCINE) 5,000 UNIT/ML 1 ML SYRINGE SUBCUT SCH ×3 (07:05→22:43)
[2018-04-12] MEDS: IPRATROPIUM/ALBUTEROL 0.5-2.5 MG/3 ML AMPUL NEB SCH ×3 (07:57→19:36)
[2018-04-12] MEDS ORDERED: IPRATROPIUM/ALBUTEROL 0.5-2.5 MG/3 ML AMPUL NEB SCH (08:00)
[2018-04-12] MEDS: INSULIN LISPRO 100 UNIT/ML 3 ML VIAL SUBCUT SCH ×4 (09:02→22:41)
[2018-04-12] MEDS: LEVOFLOXACIN 750 MG/D5W RTU 750 MG/150 ML RTUPB IV SCH (09:07)
[2018-04-12] MEDS: AZTREONAM 1 GM in DEXTROSE 5%-WATER 50 ML IV SCH ×2 (10:37→18:00)
[2018-04-12] MEDS: METHYLPREDNISOLONE INJ 125 MG/2 ML SDV IV SCH ×3 (12:22→22:41)
--- NOTE | 2018-04-12 17:29 | PDOC H&P ---
History of Present Illness Admission Date/PCP: 04/11/18 20:40 RONAL JOYA History of Present Illness: GABINO ALEXANDER is a 72 year old female she has history of very severe chronic obstructive pulmonary disease, still actively smoking, she came to the emergency room for evaluation of shortness of breath, she was in respiratory distress, the arterial blood gas demonstrated pH 7.32, PCO2 75.6, PO2 70.7 consistent with acute combined hypercapnic and hypoxemic respiratory failure, the chest x-ray showed considerable opacification in both lung bases left more than right. The chest x-ray suggests bilateral pneumonia. She requires noninvasive positive pressure ventilation BiPAP to support breathing. Past Medical History Cardiac Medical History: Reports: Hypertension, Peripheral Vascular Disease Pulmonary Medical History: Reports: Chronic Obstructive Pulmonary Disease (COPD) Endocrine Medical History: Reports: Diabetes Mellitus Type 2, Hypothyroidism GI Medical History: Reports: Gastroesophageal Reflux Disease Musculoskeltal Medical History: Reports: Arthritis Psychiatric Medical History: Reports: Depression Past Surgical History Past Surgical History: Reports: Cholecystectomy, Orthopedic Surgery - L Wrist Social History Smoking Status: Current Some Day Smoker Cigarettes Packs Per Day: 0.4 Number of Years Smokin Last Time Smoked: 04/07/18 Frequency of Alcohol Use: None Hx Recreational Drug Use: No Drugs: None Hx Prescription Drug Abuse: No Family History Family History: CAD, DM, Hypertension Parental Family History Reviewed: Yes Children Family History Reviewed: Yes Sibling(s) Family History Reviewed.: Yes Medication/Allergy Home Medications: No Home Medications 04/11/18 Allergies/Adverse Reactions: allopurinol [From Zyloprim] Allergy (Verified 03/06/18 03:47) amitriptyline HCl [From Elavil] Allergy (Verified 03/06/18 03:47) belladonna alkaloids [From Bellergal-S] Allergy (Verified 03/06/18 03:47) cefuroxime axetil [From Ceftin] Allergy (Verified 03/06/18 03:47) celecoxib [From Celebrex] Allergy (Verified 03/06/18 03:47) cimetidine [From Tagamet] Allergy (Verified 03/06/18 03:47) codeine [Codeine] Allergy (Verified 03/06/18 03:47) doxepin HCl [From Sinequan] Allergy (Verified 03/06/18 03:47) ergotamine tartrate [From Bellergal-S] Allergy (Verified 03/06/18 03:47) fluoxetine HCl [From Prozac] Allergy (Verified 03/06/18 03:47) hydroxyzine HCl [From Atarax] Allergy (Verified 03/06/18 03:47) indigotindisulfonic acid [From Indigo [place]] Allergy (Verified 03/06/18 03:47) malathion Allergy (Verified 03/06/18 03:47) mefenamic acid Allergy (Verified 03/06/18 03:47) Milk Containing Products Allergy (Verified 03/06/18 03:47) naproxen sodium [From Anaprox] Allergy (Verified 03/06/18 03:47) nefazodone HCl [From Serzone] Allergy (Verified 03/06/18 03:47) phenylephrine tannate [From Deconsal CT] Allergy (Verified 03/06/18 03:47) pyrilamine tannate [From Deconsal CT] Allergy (Verified 03/06/18 03:47) tolterodine tartrate [From Detrol] Allergy (Verified 03/06/18 03:47) trazodone HCl [From Desyrel] Allergy (Verified 03/06/18 03:47) morphine Adverse Reaction (Verified 04/11/18 21:58) renuzil Allergy (Uncoded 01/24/18 17:48) surgical steel Allergy (Uncoded 01/24/18 17:48) Review of Systems Eyes: ABSENT: visual disturbances Ears: ABSENT: hearing changes Cardiovascular: ABSENT: chest pain, dyspnea on exertion, edema, orthropnea, palpitations Respiratory: PRESENT: cough, dyspnea. ABSENT: hemoptysis Gastrointestinal: ABSENT: abdominal pain, constipation, diarrhea, hematemesis, hematochezia, nausea, vomiting Genitourinary: ABSENT: dysuria, hematuria Musculoskeletal: ABSENT: joint swelling Integumentary: ABSENT: rash, wounds Neurological: ABSENT: abnormal gait, abnormal speech, confusion, dizziness, focal weakness, syncope Psychiatric: ABSENT: anxiety, depression, homidical ideation, suicidal ideation Endocrine: ABSENT: cold intolerance, heat intolerance, menstrual abnormalities, polydipsia, polyuria Hematologic/Lymphatic: ABSENT: easy bleeding, easy bruising, lymphadenopathy Physical Exam Vital Signs: Temp Pulse Resp BP Pulse Ox 98.5 F 68 25 H 107/43 L 98 04/12/18 15:51 04/12/18 15:51 04/12/18 16:50 04/12/18 15:51 04/12/18 16:50 Intake & Output 04/11/18 04/12/18 04/13/18 06:59 06:59 06:59 Intake Total 620 200 Output Total 150 Balance 470 200 Weight 85 kg General appearance: PRESENT: severe distress Head exam: PRESENT: atraumatic, normocephalic Eye exam: PRESENT: PERRLA Neck exam: PRESENT: full ROM Respiratory exam: PRESENT: wheezes Cardiovascular exam: PRESENT: RRR, +S1, +S2 GI/Abdominal exam: PRESENT: normal bowel sounds, soft Rectal exam: PRESENT: deferred Neurological exam: PRESENT: alert, CN II-XII grossly intact Psychiatric exam: PRESENT: appropriate affect, normal mood Skin exam: PRESENT: dry, intact, warm. ABSENT: cyanosis, rash Results Laboratory Results: 04/12/18 05:53 04/12/18 05:53 04/11/18 04/11/18 04/11/18 17:24 17:24 18:30 WBC 15.6 H RBC 3.75 Hgb 9.9 L Hct 32.3 L MCV 86 MCH 26.3 L MCHC 30.6 L RDW 18.5 H Plt Count 259 Seg Neutrophils % 85.8 H Lymphocytes % 8.3 L Monocytes % 5.3 Eosinophils % 0.2 Basophils % 0.4 Absolute Neutrophils 13.4 H Absolute Lymphocytes 1.3 Absolute Monocytes 0.8 Absolute Eosinophils 0.0 Absolute Basophils 0.1 Carbonic Acid HCO3/H2CO3 Ratio ABG pH ABG pCO2 ABG pO2 ABG HCO3 ABG O2 Saturation ABG Base Excess FiO2 Sodium 140.8 Potassium 4.4 Chloride 93 L Carbon Dioxide 39 H Anion Gap 9 BUN 25 H Creatinine 0.95 Est GFR ( Amer) > 60 Est GFR (Non-Af Amer) 58 L Glucose 235 H Lactic Acid 1.8 Calcium 9.0 Total Bilirubin 0.5 AST 29 ALT 13 Alkaline Phosphatase 69 Total Protein 7.8 Albumin 4.1 Urine Color Urine Appearance Urine pH Ur Specific [place] Urine Protein Urine Glucose (UA) Urine Ketones Urine Blood Urine Nitrite Ur Leukocyte Esterase Urine WBC (Auto) Urine RBC (Auto) 04/11/18 04/11/18 04/12/18 19:00 20:55 05:53 WBC 21.0 H RBC 3.32 L Hgb 8.6 L Hct 28.2 L MCV 85 MCH 25.9 L MCHC 30.5 L RDW 18.4 H Plt Count 218 Seg Neutrophils % Not Reportable Lymphocytes % Not Reportable Monocytes % Not Reportable Eosinophils % Not Reportable Basophils % Not Reportable Absolute Neutrophils Not Reportable Absolute Lymphocytes Not Reportable Absolute Monocytes Not Reportable Absolute Eosinophils Not Reportable Absolute Basophils Not Reportable Carbonic Acid 2.28 H HCO3/H2CO3 Ratio 16:1 ABG pH 7.32 L ABG pCO2 75.6 H* ABG pO2 70.7 L ABG HCO3 38.2 H ABG O2 Saturation 92.1 L ABG Base Excess 9.9 FiO2 100% Sodium Potassium Chloride Carbon Dioxide Anion Gap BUN Creatinine Est GFR ( Amer) Est GFR (Non-Af Amer) Glucose Lactic Acid Calcium Total Bilirubin AST ALT Alkaline Phosphatase Total Protein Albumin Urine Color YELLOW Urine Appearance SLIGHTLY-CLOUDY Urine pH 6.0 Ur Specific [place] 1.016 Urine Protein 100 H Urine Glucose (UA) 50 H Urine Ketones NEGATIVE Urine Blood SMALL H Urine Nitrite NEGATIVE Ur Leukocyte Esterase TRACE H Urine WBC (Auto) 6 Urine RBC (Auto) 2 04/12/18 04/12/18 05:53 06:15 WBC RBC Hgb Hct MCV MCH MCHC RDW Plt Count Seg Neutrophils % Lymphocytes % Monocytes % Eosinophils % Basophils % Absolute Neutrophils Absolute Lymphocytes Absolute Monocytes Absolute Eosinophils Absolute Basophils Carbonic Acid 2.14 H HCO3/H2CO3 Ratio 18:1 ABG pH 7.35 ABG pCO2 71.0 H* ABG pO2 106.1 H ABG HCO3 38.7 H ABG O2 Saturation 97.4 ABG Base Excess 11.5 FiO2 80% Sodium 138.9 Potassium 4.5 Chloride 92 L Carbon Dioxide 37 H Anion Gap 10 BUN 22 H Creatinine 0.91 Est GFR ( Amer) > 60 Est GFR (Non-Af Amer) > 60 Glucose 283 H Lactic Acid Calcium 8.8 Total Bilirubin 0.3 AST 16 ALT 22 Alkaline Phosphatase 63 Total Protein 6.5 Albumin 3.6 Urine Color Urine Appearance Urine pH Ur Specific [place] Urine Protein Urine Glucose (UA) Urine Ketones Urine Blood Urine Nitrite Ur Leukocyte Esterase Urine WBC (Auto) Urine RBC (Auto) 04/11/18 04/12/18 17:24 05:53 Creatine Kinase 27 L Troponin I < 0.012 NT-Pro-B Natriuret Pep 1570 H Impressions: Chest X-Ray 04/11/18 17:17 IMPRESSION: Cardiomegaly with mild pulmonary edema. Bilateral lower lobe airspace disease concerning for bilateral pneumonia. Assessment & Plan - Diagnosis (1) Acute respiratory failure with hypoxia and hypercarbia Is this a current diagnosis for this admission?: Yes Plan: She will continue noninvasive positive pressure ventilation, BiPAP hopefully this will prevent tracheal intubation and mechanical ventilation (2) Bilateral pneumonia Qualifiers: Pneumonia type: due to unspecified organism Lung location: lower lobe of lung Qualified Code(s): J18.1 - Lobar pneumonia, unspecified organism Is this a current diagnosis for this admission?: Yes Plan: She has bilateral pneumonia, she has a long list of allergy, she will empirically be treated with aztreonam and IV Levaquin (3) COPD with acute exacerbation Is this a current diagnosis for this admission?: Yes Plan: Treat with bronchodilators every 3-4 hours, will hold off on any IV Solu-Medrol at this time, will reevaluate in 24 hours if wheezing persists, Solu-Medrol will be added to drug regimen (4) Type 2 diabetes mellitus Qualifiers: Diabetes mellitus fci insulin use: without fci use Diabetes mellitus complication status: with neurologic complications Diabetes mellitus complication detail: with polyneuropathy Qualified Code(s): E11.42 - Type 2 diabetes mellitus with diabetic polyneuropathy Is this a current diagnosis for this admission?: Yes Plan: Patient is not compliant with diabetic care she does not follow-up in the office on a regular basis for the management of the diabetes
--- NOTE | 2018-04-12 21:37 | PDOC PROGRESS REPORT ---
Subjective Progress Note for:: 04/12/18 Subjective:: Patient seen by the bedside, she said she feels bad she is audibly wheezing Reason For Visit: ACUTE HYPERCAPNIC, HYPOXEMIA RESPIRATORY FAILURE Physical Exam Vital Signs: Temp Pulse Resp BP Pulse Ox 99.2 F 71 15 157/56 H 88 L 04/12/18 20:08 04/12/18 20:08 04/12/18 20:08 04/12/18 20:08 04/12/18 20:08 Intake & Output 04/11/18 04/12/18 04/13/18 06:59 06:59 06:59 Intake Total 620 1322 Output Total 150 Balance 470 1322 Weight 85 kg General appearance: PRESENT: severe distress Eye exam: PRESENT: PERRLA Respiratory exam: PRESENT: wheezes Cardiovascular exam: PRESENT: +S1, +S2 GI/Abdominal exam: PRESENT: soft Neurological exam: PRESENT: alert Results Laboratory Results: 04/12/18 05:53 04/12/18 05:53 04/12/18 04/12/18 04/12/18 05:53 05:53 06:15 WBC 21.0 H RBC 3.32 L Hgb 8.6 L Hct 28.2 L MCV 85 MCH 25.9 L MCHC 30.5 L RDW 18.4 H Plt Count 218 Seg Neutrophils % Not Reportable Lymphocytes % Not Reportable Monocytes % Not Reportable Eosinophils % Not Reportable Basophils % Not Reportable Absolute Neutrophils Not Reportable Absolute Lymphocytes Not Reportable Absolute Monocytes Not Reportable Absolute Eosinophils Not Reportable Absolute Basophils Not Reportable Carbonic Acid 2.14 H HCO3/H2CO3 Ratio 18:1 ABG pH 7.35 ABG pCO2 71.0 H* ABG pO2 106.1 H ABG HCO3 38.7 H ABG O2 Saturation 97.4 ABG Base Excess 11.5 FiO2 80% Sodium 138.9 Potassium 4.5 Chloride 92 L Carbon Dioxide 37 H Anion Gap 10 BUN 22 H Creatinine 0.91 Est GFR ( Amer) > 60 Est GFR (Non-Af Amer) > 60 Glucose 283 H Calcium 8.8 Total Bilirubin 0.3 AST 16 ALT 22 Alkaline Phosphatase 63 Total Protein 6.5 Albumin 3.6 04/11/18 04/12/18 17:24 05:53 Creatine Kinase 27 L Troponin I < 0.012 NT-Pro-B Natriuret Pep 1570 H Impressions: Chest X-Ray 04/11/18 17:17 IMPRESSION: Cardiomegaly with mild pulmonary edema. Bilateral lower lobe airspace disease concerning for bilateral pneumonia. Assessment & Plan - Diagnosis (1) Acute respiratory failure with hypoxia and hypercarbia Is this a current diagnosis for this admission?: Yes Plan: continue oxygen at 2L/Minutes (2) Bilateral pneumonia Qualifiers: Pneumonia type: due to unspecified organism Lung location: lower lobe of lung Qualified Code(s): J18.1 - Lobar pneumonia, unspecified organism Is this a current diagnosis for this admission?: Yes Plan: Continue IV antibiotic (3) COPD with acute exacerbation Is this a current diagnosis for this admission?: Yes Plan: continue bronchodilators, start Solu-Medrol 125 mg IV every 8 (4) Type 2 diabetes mellitus Qualifiers: Diabetes mellitus medical terminologist insulin use: without fpc use Diabetes mellitus complication status: with neurologic complications Diabetes mellitus complication detail: with polyneuropathy Qualified Code(s): E11.42 - Type 2 diabetes mellitus with diabetic polyneuropathy Is this a current diagnosis for this admission?: Yes
[2018-04-13] MEDS: AZTREONAM 1 GM in DEXTROSE 5%-WATER 50 ML IV SCH ×3 (03:20→17:15)
[2018-04-13 05:10] LABS: HEMATOCRIT 26.9 % (36.0-47.0); HEMOGLOBIN 8.4 g/dL (12.0-15.5); MEAN CORPUSCULAR HGB CONC 31.2 g/dL (32.0-36.0); MEAN CORPUSCULAR VOLUME 84 fl (80-97); PLATELET COUNT 216 10^3/uL (150-450); RED BLOOD COUNT 3.23 10^6/uL (3.72-5.28); RED CELL DISTRIBUTION WIDTH 18.6 % (11.5-14.0); WHITE BLOOD COUNT 16.6 10^3/uL (4.0-10.5)
[2018-04-13 05:31] LABS: ALANINE AMINOTRANSFERASE 29 U/L (9-52); ALBUMIN 3.6 g/dL (3.5-5.0); ALKALINE PHOSPHATASE 67 U/L (38-126); ANION GAP 7 (5-19); ASPARTATE AMINO TRANSFERASE 28 U/L (14-36); BILIRUBIN,DIRECT 0.2 mg/dL (0.0-0.4); BILIRUBIN,TOTAL 0.3 mg/dL (0.2-1.3); BLOOD UREA NITROGEN 35 mg/dL (7-20); CALCIUM 8.6 mg/dL (8.4-10.2); CARBON DIOXIDE 37 mmol/L (22-30); CHLORIDE 91 mmol/L (98-107); GLUCOSE 303 mg/dL (75-110); SODIUM 135.2 mmol/L (137-145); TOTAL PROTEIN 6.7 g/dL (6.3-8.2)
[2018-04-13 05:58] LABS: POTASSIUM 5.5 mmol/L (3.6-5.0)
[2018-04-13 06:02] LABS: ABSOLUTE MONOCYTES # (MANUAL) 0.2 10^3/uL (0.1-1.4); ABSOLUTE NEUTROPHILS# (MANUAL) 16.3 10^3/uL (1.7-8.2); BAND NEUTROPHILS % (MANUAL) 1 % (3-5); BASOPHILS % (MANUAL) 0 % (0-2); EOSINOPHILS % (MANUAL) 1 % (0-6); LYMPHOCYTES % (MANUAL) 0 % (13-45); MONOCYTES % (MANUAL) 1 % (3-13); SEGMENTED NEUTROPHILS % (MAN) 97 % (42-78); TOTAL CELLS COUNTED 100; TOXIC GRANULATION SLIGHT
[2018-04-13 06:03] LABS: ANISOCYTOSIS 1+; HYPOCHROMASIA 1+; OVALOCYTES 1+; PLATELET COMMENT ADEQUATE; POIKILOCYTOSIS 1+; POLYCHROMASIA 1+; TARGET CELLS 1+
[2018-04-13] MEDS: METHYLPREDNISOLONE INJ 125 MG/2 ML SDV IV SCH ×3 (06:28→22:22)
[2018-04-13] MEDS: HEPARIN SOD (PORCINE) 5,000 UNIT/ML 1 ML SYRINGE SUBCUT SCH ×3 (06:28→22:22)
[2018-04-13] MEDS: INSULIN LISPRO 100 UNIT/ML 3 ML VIAL SUBCUT SCH ×4 (08:17→22:23)
[2018-04-13] MEDS: LEVOFLOXACIN 750 MG/D5W RTU 750 MG/150 ML RTUPB IV SCH (08:18)
[2018-04-13] MEDS: IPRATROPIUM/ALBUTEROL 0.5-2.5 MG/3 ML AMPUL NEB SCH ×3 (09:01→19:31)
--- NOTE | 2018-04-13 10:11 | PDOC PROGRESS REPORT ---
Subjective Progress Note for:: 04/13/18 Subjective:: Patient is feeling much better Patients using the BiPAP at night Patient was giving the IV steroid Patient is denied any chest pain denied any shortness of the breath No wheezing Patient also use the BiPAP during the daytime to Patient's PCO2 was high and try to get the ABG today and patient is refused for that and she said she is feeling better Reason For Visit: ACUTE HYPERCAPNIC, HYPOXEMIA RESPIRATORY FAILURE Physical Exam Vital Signs: Temp Pulse Resp BP Pulse Ox 97.9 F 63 16 159/61 H 93 04/13/18 03:30 04/13/18 09:01 04/13/18 09:01 04/13/18 03:30 04/13/18 09:01 Intake & Output 04/12/18 04/13/18 04/14/18 06:59 06:59 06:59 Intake Total 620 1642 Output Total 150 400 Balance 470 1242 Weight 85 kg 86.3 kg General appearance: PRESENT: no acute distress, well-developed, well-nourished Head exam: PRESENT: atraumatic, normocephalic Eye exam: PRESENT: conjunctiva pink, EOMI, PERRLA. ABSENT: scleral icterus Ear exam: PRESENT: normal external ear exam Mouth exam: PRESENT: moist, tongue midline Neck exam: PRESENT: full ROM. ABSENT: carotid bruit, JVD, lymphadenopathy, t hyromegaly Cardiovascular exam: PRESENT: RRR. ABSENT: diastolic murmur, rubs, systolic murmur Vascular exam: PRESENT: normal capillary refill GI/Abdominal exam: PRESENT: normal bowel sounds, soft. ABSENT: distended, guarding, mass, organolmegaly, rebound, tenderness Rectal exam: PRESENT: deferred Neurological exam: PRESENT: alert, awake, oriented to person, oriented to place, oriented to time, oriented to situation, CN II-XII grossly intact. ABSENT: motor sensory deficit Psychiatric exam: PRESENT: appropriate affect, normal mood. ABSENT: homicidal ideation, suicidal ideation Skin exam: PRESENT: dry, intact, warm. ABSENT: cyanosis, rash Results Laboratory Results: 04/13/18 04:25 04/13/18 04:25 04/13/18 04/13/18 04:25 04:25 WBC 16.6 H RBC 3.23 L Hgb 8.4 L Hct 26.9 L MCV 84 MCH 26.0 L MCHC 31.2 L RDW 18.6 H Plt Count 216 Seg Neutrophils % Not Reportable Lymphocytes % Not Reportable Monocytes % Not Reportable Eosinophils % Not Reportable Basophils % Not Reportable Absolute Neutrophils Not Reportable Absolute Lymphocytes Not Reportable Absolute Monocytes Not Reportable Absolute Eosinophils Not Reportable Absolute Basophils Not Reportable Sodium 135.2 L Potassium 5.5 H D Chloride 91 L Carbon Dioxide 37 H Anion Gap 7 BUN 35 H Creatinine 1.05 Est GFR ( Amer) > 60 Est GFR (Non-Af Amer) 52 L Glucose 303 H Calcium 8.6 Total Bilirubin 0.3 AST 28 ALT 29 Alkaline Phosphatase 67 Total Protein 6.7 Albumin 3.6 04/11/18 04/12/18 17:24 05:53 Creatine Kinase 27 L Troponin I < 0.012 NT-Pro-B Natriuret Pep 1570 H Impressions: Chest X-Ray 04/11/18 17:17 IMPRESSION: Cardiomegaly with mild pulmonary edema. Bilateral lower lobe airspace disease concerning for bilateral pneumonia. Assessment & Plan - Diagnosis (1) Acute exacerbation of chronic obstructive pulmonary disease (COPD) Is this a current diagnosis for this admission?: Yes Plan: Continues to nebulizer treatments and IV steroids (2) Acute respiratory failure with hypercapnia Is this a current diagnosis for this admission?: Yes Plan: Will check the ABG in the morning while patients do not want to do it today (3) Hyperkalemia Is this a current diagnosis for this admission?: Yes Plan: Low potassium diet and given some 1 dose of Kayexalate (4) Type 2 diabetes mellitus Qualifiers: Diabetes mellitus assisted insulin use: without ocean transportation intermediary use Diabetes mellitus complication status: with neurologic complications Diabetes mellitus complication detail: with polyneuropathy Qualified Code(s): E11.42 - Type 2 diabetes mellitus with diabetic polyneuropathy Is this a current diagnosis for this admission?: Yes Plan: Continues a sliding scale - Time Time Spent with patient: 15-24 minutes Medications reviewed and adjusted accordingly: Yes Anticipated discharge: Home Within: Other - Plan Summary Plan Summary: Currently all stable encouraged the patient is to use the BiPAP at night and during the daytime as well patient is lying on the bed
[2018-04-13] MEDS ORDERED: SODIUM POLYSTYRENE SULFONATE 15 GM/60 ML PO ONE (10:30)
[2018-04-13 11:16] LABS: ARTERIAL BLOOD BASE EXCESS 6.6 mmol/L; ARTERIAL BLOOD FIO2 50%; ARTERIAL BLOOD H2CO3 2.07 mmol/L (1.05-1.35); ARTERIAL BLOOD HCO3 34.5 mmol/L (20-24); ARTERIAL BLOOD O2 SATURATION 97.8 % (94-98); ARTERIAL BLOOD PCO2 68.8 mmHg (35-45); ARTERIAL BLOOD PH 7.32 (7.35-7.45); ARTERIAL BLOOD TOTAL CO2 36.6 mmol/L (21-25)
[2018-04-13] MEDS: ALBUTEROL SULFATE 0.083% NEB 2.5 MG/3 ML AMPUL NEB PRN (16:30)
[2018-04-14] MEDS: AZTREONAM 1 GM in DEXTROSE 5%-WATER 50 ML IV SCH ×3 (01:35→17:24)
[2018-04-14] MEDS: ACETAMINOPHEN 325 MG TABLET PO PRN (03:02)
[2018-04-14] MEDS: METHYLPREDNISOLONE INJ 125 MG/2 ML SDV IV SCH ×3 (05:07→21:04)
[2018-04-14] MEDS: HEPARIN SOD (PORCINE) 5,000 UNIT/ML 1 ML SYRINGE SUBCUT SCH ×3 (05:10→21:04)
[2018-04-14 06:26] LABS: HEMATOCRIT 25.9 % (36.0-47.0); HEMOGLOBIN 8.1 g/dL (12.0-15.5); MEAN CORPUSCULAR HEMOGLOBIN 26.3 pg (27.0-33.4); MEAN CORPUSCULAR HGB CONC 31.2 g/dL (32.0-36.0); MEAN CORPUSCULAR VOLUME 84 fl (80-97); PLATELET COUNT 226 10^3/uL (150-450); RED BLOOD COUNT 3.07 10^6/uL (3.72-5.28); RED CELL DISTRIBUTION WIDTH 18.6 % (11.5-14.0); WHITE BLOOD COUNT 12.2 10^3/uL (4.0-10.5)
[2018-04-14 06:39] LABS: ALANINE AMINOTRANSFERASE 28 U/L (9-52); ALBUMIN 3.5 g/dL (3.5-5.0); ALKALINE PHOSPHATASE 63 U/L (38-126); ANION GAP 9 (5-19); ASPARTATE AMINO TRANSFERASE 31 U/L (14-36); BILIRUBIN,DIRECT 0.3 mg/dL (0.0-0.4); BILIRUBIN,TOTAL 0.4 mg/dL (0.2-1.3); BLOOD UREA NITROGEN 38 mg/dL (7-20); CALCIUM 8.6 mg/dL (8.4-10.2); CARBON DIOXIDE 35 mmol/L (22-30); CHLORIDE 92 mmol/L (98-107); GLUCOSE 345 mg/dL (75-110); SODIUM 136.1 mmol/L (137-145); TOTAL PROTEIN 6.4 g/dL (6.3-8.2)
[2018-04-14 06:44] LABS: ABSOLUTE LYMPHOCYTES# (MANUAL) 0.1 10^3/uL (0.5-4.7); ABSOLUTE MONOCYTES # (MANUAL) 0.1 10^3/uL (0.1-1.4); BASOPHILS % (MANUAL) 0 % (0-2); EOSINOPHILS % (MANUAL) 0 % (0-6); LYMPHOCYTES % (MANUAL) 1 % (13-45); MONOCYTES % (MANUAL) 1 % (3-13); SEGMENTED NEUTROPHILS % (MAN) 98 % (42-78); TOTAL CELLS COUNTED 100
[2018-04-14 06:46] LABS: ANISOCYTOSIS 2+; POLYCHROMASIA SLIGHT; TOXIC GRANULATION 1+
[2018-04-14 06:47] LABS: PLATELET COMMENT ADEQUATE
[2018-04-14] MEDS: INSULIN LISPRO 100 UNIT/ML 3 ML VIAL SUBCUT SCH ×4 (08:11→22:18)
[2018-04-14] MEDS: LEVOFLOXACIN 750 MG/D5W RTU 750 MG/150 ML RTUPB IV SCH (08:12)
[2018-04-14] MEDS: IPRATROPIUM/ALBUTEROL 0.5-2.5 MG/3 ML AMPUL NEB SCH ×3 (08:41→19:19)
[2018-04-14] MEDS: DOCUSATE SODIUM 100 MG CAPSULE PO SCH ×2 (09:11→17:24)
--- NOTE | 2018-04-14 10:19 | PDOC PROGRESS REPORT ---
Subjective Progress Note for:: 04/14/18 Subjective:: Patient is currently doing fair Complaining some constipation issue No abdominal pain no chest pain no short of breath Patient is also complaining some anxiety was taking some medication at home but not sure Reason For Visit: ACUTE HYPERCAPNIC, HYPOXEMIA RESPIRATORY FAILURE Physical Exam Vital Signs: Temp Pulse Resp BP Pulse Ox 98.4 F 59 L 24 H 131/49 H 93 04/14/18 07:51 04/14/18 08:41 04/14/18 09:43 04/14/18 07:51 04/14/18 08:41 Intake & Output 04/13/18 04/14/18 04/15/18 06:59 06:59 06:59 Intake Total 1642 3016 150 Output Total 400 601 Balance 1242 2415 150 Weight 86.3 kg 87.1 kg General appearance: PRESENT: no acute distress, well-developed, well-nourished Head exam: PRESENT: atraumatic, normocephalic Eye exam: PRESENT: conjunctiva pink, EOMI, PERRLA. ABSENT: scleral icterus Ear exam: PRESENT: normal external ear exam Mouth exam: PRESENT: moist, tongue midline Neck exam: PRESENT: full ROM. ABSENT: carotid bruit, JVD, lymphadenopathy, thyromegaly Cardiovascular exam: PRESENT: RRR. ABSENT: diastolic murmur, rubs, systolic murmur Vascular exam: PRESENT: normal capillary refill GI/Abdominal exam: PRESENT: normal bowel sounds, soft. ABSENT: distended, guarding, mass, organolmegaly, rebound, tenderness Rectal exam: PRESENT: deferred Neurological exam: PRESENT: alert, awake, oriented to person, oriented to place, oriented to time, oriented to situation, CN II-XII grossly intact. ABSENT: motor sensory deficit Psychiatric exam: PRESENT: appropriate affect, normal mood. ABSENT: homicidal ideation, suicidal ideation Skin exam: PRESENT: dry, intact, warm. ABSENT: cyanosis, rash Results Laboratory Results: 04/14/18 05:59 04/14/18 05:59 04/13/18 04/14/18 04/14/18 10:49 05:59 05:59 WBC 12.2 H RBC 3.07 L Hgb 8.1 L Hct 25.9 L MCV 84 MCH 26.3 L MCHC 31.2 L RDW 18.6 H Plt Count 226 Seg Neutrophils % Not Reportable Lymphocytes % Not Reportable Monocytes % Not Reportable Eosinophils % Not Reportable Basophils % Not Reportable Absolute Neutrophils Not Reportable Absolute Lymphocytes Not Reportable Absolute Monocytes Not Reportable Absolute Eosinophils Not Reportable Absolute Basophils Not Reportable Carbonic Acid 2.07 H HCO3/H2CO3 Ratio 16:1 ABG pH 7.32 L ABG pCO2 68.8 H ABG pO2 116.0 H ABG HCO3 34.5 H ABG O2 Saturation 97.8 ABG Base Excess 6.6 FiO2 50% Sodium 136.1 L Potassium 5.0 Chloride 92 L Carbon Dioxide 35 H Anion Gap 9 BUN 38 H Creatinine 1.07 Est GFR ( Amer) > 60 Est GFR (Non-Af Amer) 51 L Glucose 345 H Calcium 8.6 Total Bilirubin 0.4 AST 31 ALT 28 Alkaline Phosphatase 63 Total Protein 6.4 Albumin 3.5 04/11/18 20:55 Clean Catch Midstream Urine Culture - Final Escherichia Coli 04/11/18 04/12/18 17:24 05:53 Creatine Kinase 27 L Troponin I < 0.012 NT-Pro-B Natriuret Pep 1570 H Impressions: Chest X-Ray 04/11/18 17:17 IMPRESSION: Cardiomegaly with mild pulmonary edema. Bilateral lower lobe airspace disease concerning for bilateral pneumonia. Assessment & Plan - Diagnosis (1) Acute exacerbation of chronic obstructive pulmonary disease (COPD) Is this a current diagnosis for this admission?: Yes Plan: Currently getting better Will get the reduce the steroids (2) Acute respiratory failure with hypercapnia Is this a current diagnosis for this admission?: Yes Plan: Will repeat the ABG patient still need a BiPAP (3) Hyperkalemia Is this a current diagnosis for this admission?: Yes Plan: Currently all resolved (4) Type 2 diabetes mellitus Qualifiers: Diabetes mellitus long-term insulin use: without long-term use Diabetes mellitus complication status: with neurologic complications Diabetes mellitus complication detail: with polyneuropathy Qualified Code(s): E11.42 - Type 2 diabetes mellitus with diabetic polyneuropathy Is this a current diagnosis for this admission?: Yes Plan: Continues a sliding scale (5) Constipation Is this a current diagnosis for this admission?: Yes Plan: Give a Colace and MiraLAX (6) Bilateral pneumonia Qualifiers: Pneumonia type: due to unspecified organism Lung location: lower lobe of lung Qualified Code(s): J18.1 - Lobar pneumonia, unspecified organism Is this a current diagnosis for this admission?: Yes Plan: Continues to IV antibiotic - Time Time Spent with patient: 15-24 minutes Medications reviewed and adjusted accordingly: Yes Anticipated discharge: Home Within: Other - Plan Summary Plan Summary: Will get the chest x-ray Repeat ABG
[2018-04-14] MEDS ORDERED: BISACODYL 5 MG TABEC PO PRN (10:26)
[2018-04-14] MEDS ORDERED: POLYETHYLENE GLYCOL 3350 POWDER 17 GM/1 PACKET PO SCH (11:00)
--- NOTE | 2018-04-14 12:05 | RADIOLOGY REPORT (SQ) ---
EXAM DESCRIPTION: CHEST SINGLE VIEW COMPLETED DATE/TIME: 04/14/2018 11:56 am REASON FOR STUDY: copd COMPARISON: 04/11/2018. EXAM PARAMETERS: NUMBER OF VIEWS: One view. TECHNIQUE: Single frontal radiographic view of the chest acquired. RADIATION DOSE: NA LIMITATIONS: None. FINDINGS: LUNGS AND PLEURA: Improved aeration. Small pleural effusions. MEDIASTINUM AND HILAR STRUCTURES: No masses. Contour normal. HEART AND VASCULAR STRUCTURES: Cardiomegaly and vascular congestion. BONES: No acute findings. HARDWARE: None in the chest. OTHER: No other significant finding. IMPRESSION: CARDIOMEGALY WITH VASCULAR CONGESTION. IMPROVED AERATION. TECHNICAL DOCUMENTATION: JOB ID: [id number] [employer]- All Rights Reserved Reading location - IP/workstation name: [email or web address]
[2018-04-14] MEDS: BUSPIRONE HCL 10 MG TABLET PO SCH ×2 (14:10→21:04)
[2018-04-15] MEDS: AZTREONAM 1 GM in DEXTROSE 5%-WATER 50 ML IV SCH ×3 (02:26→17:07)
[2018-04-15] MEDS: BUSPIRONE HCL 10 MG TABLET PO SCH ×3 (05:00→22:11)
[2018-04-15] MEDS: METHYLPREDNISOLONE INJ 125 MG/2 ML SDV IV SCH ×3 (05:01→22:12)
[2018-04-15] MEDS: HEPARIN SOD (PORCINE) 5,000 UNIT/ML 1 ML SYRINGE SUBCUT SCH ×3 (05:01→22:12)
[2018-04-15 05:05] LABS: HEMATOCRIT 26.9 % (36.0-47.0); HEMOGLOBIN 8.4 g/dL (12.0-15.5); MEAN CORPUSCULAR HGB CONC 31.2 g/dL (32.0-36.0); MEAN CORPUSCULAR VOLUME 83 fl (80-97); PLATELET COUNT 226 10^3/uL (150-450); RED BLOOD COUNT 3.23 10^6/uL (3.72-5.28); RED CELL DISTRIBUTION WIDTH 18.4 % (11.5-14.0); WHITE BLOOD COUNT 8.8 10^3/uL (4.0-10.5)
[2018-04-15 05:18] LABS: ANION GAP 6 (5-19); BLOOD UREA NITROGEN 32 mg/dL (7-20); CALCIUM 8.9 mg/dL (8.4-10.2); CARBON DIOXIDE 38 mmol/L (22-30); CHLORIDE 94 mmol/L (98-107); GLUCOSE 221 mg/dL (75-110); POTASSIUM 5.3 mmol/L (3.6-5.0); SODIUM 138.3 mmol/L (137-145)
[2018-04-15 05:40] LABS: ABSOLUTE LYMPHOCYTES# (MANUAL) 0.8 10^3/uL (0.5-4.7); ABSOLUTE MONOCYTES # (MANUAL) 0.4 10^3/uL (0.1-1.4); ABSOLUTE NEUTROPHILS# (MANUAL) 7.7 10^3/uL (1.7-8.2); ANISOCYTOSIS 2+; BASOPHILS % (MANUAL) 0 % (0-2); EOSINOPHILS % (MANUAL) 0 % (0-6); HYPOCHROMASIA 1+; LYMPHOCYTES % (MANUAL) 9 % (13-45); MONOCYTES % (MANUAL) 4 % (3-13); PLATELET COMMENT ADEQUATE; PLATELET LARGE PRESENT; SEGMENTED NEUTROPHILS % (MAN) 87 % (42-78); TOTAL CELLS COUNTED 100
[2018-04-15 05:41] LABS: POLYCHROMASIA SLIGHT; STOMATOCYTES 1+
[2018-04-15] MEDS: INSULIN LISPRO 100 UNIT/ML 3 ML VIAL SUBCUT SCH ×4 (07:53→22:22)
[2018-04-15] MEDS: LEVOFLOXACIN 750 MG/D5W RTU 750 MG/150 ML RTUPB IV SCH (07:54)
[2018-04-15] MEDS: IPRATROPIUM/ALBUTEROL 0.5-2.5 MG/3 ML AMPUL NEB SCH ×3 (08:36→19:47)
[2018-04-15] MEDS: DOCUSATE SODIUM 100 MG CAPSULE PO SCH ×2 (09:54→17:08)
[2018-04-15] MEDS: POLYETHYLENE GLYCOL 3350 POWDER 17 GM/1 PACKET PO SCH (09:54)
[2018-04-15] MEDS: ACETAMINOPHEN 325 MG TABLET PO PRN ×2 (13:18→22:10)
--- NOTE | 2018-04-15 21:00 | PDOC PROGRESS REPORT ---
Subjective Progress Note for:: 04/15/18 Subjective:: ,Patient was seen by the bedside,she has no new complaints Reason For Visit: ACUTE HYPERCAPNIC, HYPOXEMIA RESPIRATORY FAILURE Physical Exam Vital Signs: Temp Pulse Resp BP Pulse Ox 98.0 F 51 L 20 163/67 H 99 04/15/18 19:28 04/15/18 19:47 04/15/18 19:47 04/15/18 19:28 04/15/18 19:47 Intake & Output 04/14/18 04/15/18 04/16/18 06:59 06:59 06:59 Intake Total 3016 1925 750 Output Total 601 1650 1425 Balance 2415 275 -675 Weight 87.1 kg 87.4 kg General appearance: PRESENT: no acute distress Eye exam: PRESENT: PERRLA Respiratory exam: PRESENT: wheezes Cardiovascular exam: PRESENT: +S1, +S2 GI/Abdominal exam: PRESENT: soft Neurological exam: PRESENT: alert Results Laboratory Results: 04/15/18 04:26 04/15/18 04:26 04/15/18 04/15/18 04:26 04:26 WBC 8.8 RBC 3.23 L Hgb 8.4 L Hct 26.9 L MCV 83 MCH 26.0 L MCHC 31.2 L RDW 18.4 H Plt Count 226 Seg Neutrophils % Not Reportable Lymphocytes % Not Reportable Monocytes % Not Reportable Eosinophils % Not Reportable Basophils % Not Reportable Absolute Neutrophils Not Reportable Absolute Lymphocytes Not Reportable Absolute Monocytes Not Reportable Absolute Eosinophils Not Reportable Absolute Basophils Not Reportable Sodium 138.3 Potassium 5.3 H Chloride 94 L Carbon Dioxide 38 H Anion Gap 6 BUN 32 H Creatinine 0.97 Est GFR ( Amer) > 60 Est GFR (Non-Af Amer) 57 L Glucose 221 H Calcium 8.9 04/11/18 04/12/18 17:24 05:53 Creatine Kinase 27 L Troponin I < 0.012 NT-Pro-B Natriuret Pep 1570 H Impressions: Chest X-Ray 04/14/18 00:00 IMPRESSION: CARDIOMEGALY WITH VASCULAR CONGESTION. IMPROVED AERATION. Assessment & Plan - Diagnosis (1) Acute respiratory failure with hypoxia and hypercarbia Is this a current diagnosis for this admission?: Yes Plan: continue treatment (2) Bilateral pneumonia Qualifiers: Pneumonia type: due to unspecified organism Lung location: lower lobe of lung Qualified Code(s): J18.1 - Lobar pneumonia, unspecified organism Is this a current diagnosis for this admission?: Yes (3) COPD with acute exacerbation Is this a current diagnosis for this admission?: Yes (4) Type 2 diabetes mellitus Qualifiers: Diabetes mellitus senior care insulin use: without sales specialist use Diabetes mellitus complication status: with neurologic complications Diabetes mellitus complication detail: with polyneuropathy Qualified Code(s): E11.42 - Type 2 diabetes mellitus with diabetic polyneuropathy Is this a current diagnosis for this admission?: Yes (5) E. coli UTI Is this a current diagnosis for this admission?: Yes Plan: sensitive to levhugouin
[2018-04-16] MEDS: AZTREONAM 1 GM in DEXTROSE 5%-WATER 50 ML IV SCH ×3 (02:44→17:53)
[2018-04-16 05:45] LABS: ANION GAP 6 (5-19); BLOOD UREA NITROGEN 35 mg/dL (7-20); CALCIUM 8.9 mg/dL (8.4-10.2); CARBON DIOXIDE 37 mmol/L (22-30); CHLORIDE 94 mmol/L (98-107); GLUCOSE 265 mg/dL (75-110); POTASSIUM 5.3 mmol/L (3.6-5.0); SODIUM 136.8 mmol/L (137-145)
[2018-04-16] MEDS: BUSPIRONE HCL 10 MG TABLET PO SCH ×3 (05:55→22:13)
[2018-04-16] MEDS: METHYLPREDNISOLONE INJ 125 MG/2 ML SDV IV SCH ×2 (05:56→13:36)
[2018-04-16] MEDS: HEPARIN SOD (PORCINE) 5,000 UNIT/ML 1 ML SYRINGE SUBCUT SCH ×3 (05:56→22:13)
[2018-04-16] MEDS: IPRATROPIUM/ALBUTEROL 0.5-2.5 MG/3 ML AMPUL NEB SCH ×3 (07:57→20:08)
[2018-04-16] MEDS: INSULIN LISPRO 100 UNIT/ML 3 ML VIAL SUBCUT SCH ×4 (08:09→22:13)
[2018-04-16] MEDS: LEVOFLOXACIN 750 MG/D5W RTU 750 MG/150 ML RTUPB IV SCH (08:56)
[2018-04-16] MEDS: DOCUSATE SODIUM 100 MG CAPSULE PO SCH ×2 (10:29→17:52)
[2018-04-16] MEDS: POLYETHYLENE GLYCOL 3350 POWDER 17 GM/1 PACKET PO SCH (10:31)
[2018-04-16] MEDS: ACETAMINOPHEN 325 MG TABLET PO PRN ×2 (13:36→17:54)
--- NOTE | 2018-04-16 18:50 | PDOC PROGRESS REPORT ---
Subjective Progress Note for:: 04/16/18 Subjective:: Patient was seen by the bedside Reason For Visit: ACUTE HYPERCAPNIC, HYPOXEMIA RESPIRATORY FAILURE Physical Exam Vital Signs: Temp Pulse Resp BP Pulse Ox 98.1 F 59 L 18 148/44 H 90 L 04/16/18 15:50 04/16/18 15:50 04/16/18 15:50 04/16/18 15:50 04/16/18 15:50 Intake & Output 04/15/18 04/16/18 04/17/18 06:59 06:59 06:59 Intake Total 1925 800 250 Output Total 1650 2575 900 Balance 071 -6359 -840 Weight 87.4 kg 88.9 kg General appearance: PRESENT: no acute distress Eye exam: PRESENT: PERRLA Respiratory exam: PRESENT: rhonchi Cardiovascular exam: PRESENT: +S1, +S2 GI/Abdominal exam: PRESENT: soft Neurological exam: PRESENT: alert Results Laboratory Results: 04/15/18 04:26 04/16/18 04:13 04/16/18 04:13 Sodium 136.8 L Potassium 5.3 H Chloride 94 L Carbon Dioxide 37 H Anion Gap 6 BUN 35 H Creatinine 0.95 Est GFR ( Amer) > 60 Est GFR (Non-Af Amer) 58 L Glucose 265 H Calcium 8.9 04/11/18 18:30 Blood Blood Culture - Final NO GROWTH IN 5 DAYS 04/11/18 17:24 Blood Blood Culture - Final NO GROWTH IN 5 DAYS 04/11/18 04/12/18 17:24 05:53 Creatine Kinase 27 L Troponin I < 0.012 NT-Pro-B Natriuret Pep 1570 H Impressions: Chest X-Ray 04/14/18 00:00 IMPRESSION: CARDIOMEGALY WITH VASCULAR CONGESTION. IMPROVED AERATION. Assessment & Plan - Diagnosis (1) Acute respiratory failure with hypoxia and hypercarbia Is this a current diagnosis for this admission?: Yes (2) Bilateral pneumonia Qualifiers: Pneumonia type: due to unspecified organism Lung location: lower lobe of lung Qualified Code(s): J18.1 - Lobar pneumonia, unspecified organism Is this a current diagnosis for this admission?: Yes (3) COPD with acute exacerbation Is this a current diagnosis for this admission?: Yes Plan: DC IV Solu-Medrol, start prednisone (4) Type 2 diabetes mellitus Qualifiers: Diabetes mellitus senior care insulin use: without senior care use Diabetes mellitus complication status: with neurologic complications Diabetes mellitus complication detail: with polyneuropathy Qualified Code(s): E11.42 - Type 2 diabetes mellitus with diabetic polyneuropathy Is this a current diagnosis for this admission?: Yes (5) E. coli UTI Is this a current diagnosis for this admission?: Yes
[2018-04-16] MEDS: PREDNISONE 20 MG TABLET PO SCH (20:34)
[2018-04-17] MEDS: AZTREONAM 1 GM in DEXTROSE 5%-WATER 50 ML IV SCH ×3 (02:05→17:09)
[2018-04-17 06:03] LABS: ANION GAP 6 (5-19); BLOOD UREA NITROGEN 30 mg/dL (7-20); CARBON DIOXIDE 37 mmol/L (22-30); CHLORIDE 94 mmol/L (98-107); GLUCOSE 221 mg/dL (75-110); POTASSIUM 5.1 mmol/L (3.6-5.0); SODIUM 137.4 mmol/L (137-145)
[2018-04-17] MEDS: BUSPIRONE HCL 10 MG TABLET PO SCH ×3 (06:15→21:16)
[2018-04-17] MEDS: HEPARIN SOD (PORCINE) 5,000 UNIT/ML 1 ML SYRINGE SUBCUT SCH ×3 (06:16→21:16)
[2018-04-17] MEDS: INSULIN LISPRO 100 UNIT/ML 3 ML VIAL SUBCUT SCH ×4 (07:53→22:06)
[2018-04-17] MEDS: LEVOFLOXACIN 750 MG/D5W RTU 750 MG/150 ML RTUPB IV SCH (07:54)
[2018-04-17] MEDS: IPRATROPIUM/ALBUTEROL 0.5-2.5 MG/3 ML AMPUL NEB SCH ×3 (08:48→19:28)
[2018-04-17] MEDS: DOCUSATE SODIUM 100 MG CAPSULE PO SCH ×2 (09:44→17:09)
[2018-04-17] MEDS: PREDNISONE 20 MG TABLET PO SCH (09:44)
[2018-04-17] MEDS: POLYETHYLENE GLYCOL 3350 POWDER 17 GM/1 PACKET PO SCH (09:46)
[2018-04-17] MEDS: ACETAMINOPHEN 325 MG TABLET PO PRN ×2 (13:25→20:49)
--- NOTE | 2018-04-17 20:05 | PDOC DISCHARGE SUMMARY ---
General - Admit/Disc Date/PCP Admission Date/Primary Care Provider: 04/11/18 20:40 RONAL JOYA Discharge Date: 04/18/18 - Discharge Diagnosis (1) Acute respiratory failure with hypoxia and hypercarbia Is this a current diagnosis for this admission?: Yes (2) Bilateral pneumonia Is this a current diagnosis for this admission?: Yes (3) COPD with acute exacerbation Is this a current diagnosis for this admission?: Yes (4) Type 2 diabetes mellitus Is this a current diagnosis for this admission?: Yes (5) E. coli UTI Is this a current diagnosis for this admission?: Yes - Additional Information Prescriptions: Albuterol Sulfate [Proair Hfa Inhalation Aerosol 8.5 gm Mdi] 1 puff IH Q4 PRN #1 mdi PRN Reason: Bisacodyl [Dulcolax 5 mg Tablet] 10 mg PO DAILYP PRN #90 tabec PRN Reason: Buspirone HCl [Buspar 10 mg Tablet] 10 mg PO Q12 #60 tablet Fluticasone/Umeclidin/Vilanter [Trelegy 100-62.5-25 Mcg Ellipta 14 Dose/Dpi] 1 each IN DAILY #2 inhaler Prednisone [Deltasone 20 mg Tablet] 10 mg PO DAILY #5 tablet Home Medications: Acetaminophen [Tylenol 325 mg Tablet] 650 mg PO Q4HP PRN tablet 04/17/18 Albuterol Sulfate [Proair Hfa Inhalation Aerosol 8.5 gm Mdi] 1 puff IH Q4 PRN #1 mdi 04/17/18 Bisacodyl [Dulcolax 5 mg Tablet] 10 mg PO DAILYP PRN #90 tabec 04/17/18 Buspirone HCl [Buspar 10 mg Tablet] 10 mg PO Q12 #60 tablet 04/17/18 Fluticasone/Umeclidin/Vilanter [Trelegy 100-62.5-25 Mcg Ellipta 14 Dose/Dpi] 1 each IN DAILY #2 inhaler 04/17/18 Prednisone [Deltasone 20 mg Tablet] 10 mg PO DAILY #5 tablet 04/17/18 History of Present Illness History of Present Illness: GABINO ALEXANDER is a 72 year old female she has history of very severe chronic obstructive pulmonary disease, still actively smoking, she came to the emergency room for evaluation of shortness of breath, she was in respiratory distress, the arterial blood gas demonstrated pH 7.32, PCO2 75.6, PO2 70.7 consistent with acute combined hypercapnic and hypoxemic respiratory failure, the chest x-ray showed considerable opacification in both lung bases left more than right. The chest x-ray suggests bilateral pneumonia. She requires noninvasive positive pressure ventilation BiPAP to support breathing. Hospital Course Hospital Course: Patient was admitted when she presented with acute hypercapnic and hypoxemic respiratory failure, there was associated pneumonia. She was treated with IV antibiotic aztreonam and Levaquin, hospital course was complicated with acute COPD exacerbation, she required intravenous Solu-Medrol, bronchodilators.She also required noninvasive positive pressure ventilation BiPAP to support breathing Physical Exam Vital Signs: Temp Pulse Resp BP Pulse Ox 97.9 F 80 16 140/53 H 90 L 04/17/18 15:16 04/17/18 19:28 04/17/18 19:28 04/17/18 15:16 04/17/18 19:28 Intake & Output 04/16/18 04/17/18 04/18/18 06:59 06:59 06:59 Intake Total 707 506 0414 Output Total 0601 5890 2050 Balance -5646 -3391 -848 Weight 88.9 kg 89 kg General appearance: PRESENT: no acute distress Eye exam: PRESENT: PERRLA Respiratory exam: PRESENT: rhonchi Cardiovascular exam: PRESENT: +S1, +S2 GI/Abdominal exam: PRESENT: soft Neurological exam: PRESENT: alert, CN II-XII grossly intact Results Laboratory Results: 04/15/18 04:26 04/17/18 04:32 04/17/18 04:32 Sodium 137.4 Potassium 5.1 H Chloride 94 L Carbon Dioxide 37 H Anion Gap 6 BUN 30 H Creatinine 0.86 Est GFR ( Amer) > 60 Est GFR (Non-Af Amer) > 60 Glucose 221 H Calcium 9.0 04/11/18 18:30 Blood Blood Culture - Final NO GROWTH IN 5 DAYS 04/11/18 17:24 Blood Blood Culture - Final NO GROWTH IN 5 DAYS 04/11/18 04/12/18 17:24 05:53 Creatine Kinase 27 L Troponin I < 0.012 NT-Pro-B Natriuret Pep 1570 H Impressions: Chest X-Ray 03/03/19 00:00 IMPRESSION: CARDIOMEGALY WITH VASCULAR CONGESTION. IMPROVED AERATION. Qualifiers - * PATIENT BEING DISCHARGED WITH ANY OF THE FOLLOWING DIAGNOSIS: No
[2018-04-18] MEDS: ACETAMINOPHEN 325 MG TABLET PO PRN ×2 (02:21→09:02)
[2018-04-18] MEDS: AZTREONAM 1 GM in DEXTROSE 5%-WATER 50 ML IV SCH (02:21)
[2018-04-18] MEDS: HEPARIN SOD (PORCINE) 5,000 UNIT/ML 1 ML SYRINGE SUBCUT SCH (05:15)
[2018-04-18] MEDS: BUSPIRONE HCL 10 MG TABLET PO SCH (05:16)
[2018-04-18] MEDS: IPRATROPIUM/ALBUTEROL 0.5-2.5 MG/3 ML AMPUL NEB SCH (08:58)
[2018-04-18] MEDS: INSULIN LISPRO 100 UNIT/ML 3 ML VIAL SUBCUT SCH (09:00)
[2018-04-18] MEDS: LEVOFLOXACIN 750 MG/D5W RTU 750 MG/150 ML RTUPB IV SCH (09:01)
[2018-04-18] MEDS ORDERED: PREDNISONE 20 MG TABLET PO SCH (10:00)
[2018-04-18] MEDS ORDERED: PREDNISONE 10 MG TABLET PO SCH (10:00)
[2018-04-18 10:09] VITALS: BP 150/52
== END 2018-04-18 10:05 | disposition home or self-care (01) | DRG 189 ==
LOC: ER 17:15 → EH 20:40 → 3N 04-12 03:52
PROVIDERS: ADMIT Internal Medicine; ATTEND Internal Medicine
PROC: 5A09557 Assistance with Respiratory Ventilation, Greater than 96 Consecutive Hours, Continuous Positive Airway Pressure (ICD-10-PCS; principal; 2018-04-11)
PROC: 3E0F73Z Introduction of Anti-inflammatory into Respiratory Tract, Via Natural or Artificial Opening (ICD-10-PCS; 2018-04-12)
DX: J96.01 Acute respiratory failure with hypoxia (principal); J18.1 Lobar pneumonia, unspecified organism; J44.1 Chronic obstructive pulmonary disease with (acute) exacerbation; J44.0 Chronic obstructive pulmonary disease with (acute) lower respiratory infection; N39.0 Urinary tract infection, site not specified; J96.02 Acute respiratory failure with hypercapnia; B96.20 Unspecified Escherichia coli [E. coli] as the cause of diseases classified elsewhere; I10 Essential (primary) hypertension; E11.51 Type 2 diabetes mellitus with diabetic peripheral angiopathy without gangrene; E03.9 Hypothyroidism, unspecified; M19.90 Unspecified osteoarthritis, unspecified site; F32.9 Major depressive disorder, single episode, unspecified; E11.42 Type 2 diabetes mellitus with diabetic polyneuropathy; E87.5 Hyperkalemia; K59.00 Constipation, unspecified; F17.210 Nicotine dependence, cigarettes, uncomplicated; Z79.899 Other long term (current) drug therapy; Z79.52 Long term (current) use of systemic steroids; Z90.49 Acquired absence of other specified parts of digestive tract; Z88.6 Allergy status to analgesic agent; Z88.4 Allergy status to anesthetic agent; Z88.1 Allergy status to other antibiotic agents; Z88.8 Allergy status to other drugs, medicaments and biological substances; Z91.010 Allergy to peanuts; Z83.3 Family history of diabetes mellitus; Z82.49 Family history of ischemic heart disease and other diseases of the circulatory system
CPT/HCPCS: 36415; 36600; 71045; 80048; 80053; 81001; 82550; 82803; 82962; 83036; 83605; 83880; 84484; 85025; 85610; 87040; 87086; 87088; 87186; 93005; 93010; 94640; 94660; 96365; 99285; J1644; J1815; J1956; J2930; J3475; J3490; J7512; J7620

== ENCOUNTER 2018-06-27 17:02 | Inpatient (IN) | payer MEDICARE ==
[2018-06-27 18:22] LABS: ABSOLUTE BASOPHILS # (AUTO) 0.1 10^3/uL (0.0-0.2); ABSOLUTE EOSINOPHILS # (AUTO) 0.1 10^3/uL (0.0-0.6); ABSOLUTE MONOCYTES (AUTO) 0.6 10^3/uL (0.1-1.4); ABSOLUTE NEUT (AUTO) 7.4 10^3/uL (1.7-8.2); BASOPHILS % (AUTO) 0.9 % (0-2); EOSINOPHILS % (AUTO) 0.8 % (0-6); HEMATOCRIT 28.9 % (36.0-47.0); HEMOGLOBIN 8.3 g/dL (12.0-15.5); LYMPHOCYTES % (AUTO) 19.8 % (13-45); MEAN CORPUSCULAR HGB CONC 28.8 g/dL (32.0-36.0); MEAN CORPUSCULAR VOLUME 80 fl (80-97); MONOCYTES % (AUTO) 6.2 % (3-13); PLATELET COUNT 162 10^3/uL (150-450); RED BLOOD COUNT 3.62 10^6/uL (3.72-5.28); RED CELL DISTRIBUTION WIDTH 20.5 % (11.5-14.0); SEGMENTED NEUTROPHILS % (AUTO) 72.3 % (42-78); TOTAL CELLS COUNTED % (AUTO) 100 %; WHITE BLOOD COUNT 10.3 10^3/uL (4.0-10.5)
[2018-06-27 18:31] LABS: ALANINE AMINOTRANSFERASE 21 U/L (9-52); ALBUMIN 3.5 g/dL (3.5-5.0); ALKALINE PHOSPHATASE 66 U/L (38-126); ANION GAP 11 (5-19); ASPARTATE AMINO TRANSFERASE 15 U/L (14-36); BILIRUBIN,DIRECT 0.3 mg/dL (0.0-0.4); BILIRUBIN,TOTAL 0.3 mg/dL (0.2-1.3); BLOOD UREA NITROGEN 38 mg/dL (7-20); CALCIUM 8.4 mg/dL (8.4-10.2); CARBON DIOXIDE 31 mmol/L (22-30); CHLORIDE 99 mmol/L (98-107); CREATINE KINASE 25 U/L (30-135); GLUCOSE 244 mg/dL (75-110); SODIUM 140.8 mmol/L (137-145); TOTAL PROTEIN 6.3 g/dL (6.3-8.2)
--- NOTE | 2018-06-27 18:39 | RADIOLOGY REPORT (SQ) ---
EXAM DESCRIPTION: CHEST SINGLE VIEW COMPLETED DATE/TIME: 06/27/2018 6:29 pm REASON FOR STUDY: SOB COMPARISON: 04/14/2018 EXAM PARAMETERS: NUMBER OF VIEWS: One view. TECHNIQUE: Single frontal radiographic view of the chest acquired. RADIATION DOSE: NA LIMITATIONS: None. FINDINGS: LUNGS AND PLEURA: Pulmonary vascular congestion with mild pulmonary edema. Small pleural effusions. Bibasilar opacification. MEDIASTINUM AND HILAR STRUCTURES: No masses. Contour normal. HEART AND VASCULAR STRUCTURES: Cardiomegaly. BONES: No acute findings. HARDWARE: None in the chest. OTHER: No other significant finding. IMPRESSION: Cardiomegaly with pulmonary edema. Small pleural effusions. Cannot exclude airspace di sease in either lower lobe. TECHNICAL DOCUMENTATION: JOB ID: [id number] [employer]- All Rights Reserved Reading location - IP/workstation name: [email or web address]
[2018-06-27 18:41] LABS: CREATINE KINASE MB 1.29 ng/mL (<4.55); TROPONIN I 0.014 ng/mL
[2018-06-27 19:18] LABS: APPEARANCE,URINE CLOUDY; BILIRUBIN,URINE NEGATIVE (NEGATIVE); COLOR,URINE YELLOW; GLUCOSE, URINE NEGATIVE (NEGATIVE); KETONES,URINE NEGATIVE (NEGATIVE); LEUKOCYTE ESTERASE,URINE TRACE (NEGATIVE); NITRITE,URINE NEGATIVE (NEGATIVE); PROTEIN,URINE 100 mg/dL (NEGATIVE); URINE SPECIFIC GRAVITY 1.023; UROBILINOGEN,URINE NEGATIVE mg/dL (<2.0)
--- NOTE | 2018-06-27 19:21 | ER Document Report ---
ED Respiratory Problem - General Chief Complaint: Respiratory Distress Stated Complaint: RESPIRATORY DISTRESS Time Seen by Provider: 06/27/18 18:24 Notes: This is a 73-year-old female patient resents via EMS for weakness and shortness of breath. Patient states that she has been more more short of breath over the last week. Had to call EMS today. EMS arrived and sats were in the 70s. 2 breathing treatments and Solu-Medrol given. Patient states that she has not been running a fever. Is never had a blood clot. Does have congestive heart failure. Does continue to smoke. Patient has refused CPAP at this time. TRAVEL OUTSIDE OF THE [place] IN LAST 30 DAYS: No - HPI Patient complains to provider of: CHF, COPD, Cough, Short of breath Onset: Last week Duration: Continuous, Worse/persistent - Related Data Allergies/Adverse Reactions: allopurinol [From Zyloprim] Allergy (Verified 03/06/18 03:47) amitriptyline HCl [From Elavil] Allergy (Verified 03/06/18 03:47) belladonna alkaloids [From Bellergal-S] Allergy (Verified 03/06/18 03:47) cefuroxime axetil [From Ceftin] Allergy (Verified 03/06/18 03:47) celecoxib [From Celebrex] Allergy (Verified 03/06/18 03:47) cimetidine [From Tagamet] Allergy (Verified 03/06/18 03:47) codeine [Codeine] Allergy (Verified 03/06/18 03:47) doxepin HCl [From Sinequan] Allergy (Verified 03/06/18 03:47) ergotamine tartrate [From Bellergal-S] Allergy (Verified 03/06/18 03:47) fluoxetine HCl [From Prozac] Allergy (Verified 03/06/18 03:47) hydroxyzine HCl [From Atarax] Allergy (Verified 03/06/18 03:47) indigotindisulfonic acid [From Indigo Pearson] Allergy (Verified 03/06/18 03:47) malathion Allergy (Verified 03/06/18 03:47) mefenamic acid Allergy (Verified 03/06/18 03:47) Milk Containing Products Allergy (Verified 03/06/18 03:47) naproxen sodium [From Anaprox] Allergy (Verified 03/06/18 03:47) nefazodone HCl [From Serzone] Allergy (Verified 03/06/18 03:47) phenylephrine tannate [From [place] CT] Allergy (Verified 03/06/18 03:47) pyrilamine tannate [From [place] CT] Allergy (Verified 03/06/18 03:47) tolterodine tartrate [From Detrol] Allergy (Verified 03/06/18 03:47) trazodone HCl [From Desyrel] Allergy (Verified 03/06/18 03:47) morphine Adverse Reaction (Verified 04/11/18 21:58) renuzil Allergy (Uncoded 01/24/18 17:48) surgical steel Allergy (Uncoded 01/24/18 17:48) Past Medical History - General Information source: Patient, Dr. Smith, [facility] Records - Social History Smoking Status: Current Every Day Smoker Frequency of alcohol use: None Drug Abuse: None Lives with: Alone Family History: CAD, DM, Hypertension Patient has suicidal ideation: No Patient has homicidal ideation: No - Past Medical History Cardiac Medical History: Reports: Hx Congestive Heart Failure, Hx Hypertension, Hx Peripheral Vascular Disease Pulmonary Medical History: Reports: Hx COPD Endocrine Medical History: Reports: Hx Diabetes Mellitus Type 2, Hx Hypoth yroidism Renal/ Medical History: Denies: Hx Peritoneal Dialysis GI Medical History: Reports: Hx Gastroesophageal Reflux Disease. Denies: Hx Crohn's Disease, Hx Ulcerative Colitis Musculoskeletal Medical History: Reports Hx Arthritis, Denies Hx Gout Skin Medical History: Denies Hx Eczema, Denies Hx Psoriasis Psychiatric Medical History: Reports: Hx Depression Denies: Hx Bipolar Disorder, Hx Personality Disorder, Hx Schizoaffective Disorder Traumatic Medical History: Denies: Hx Traumatic Brain Injury Past Surgical History: Reports: Hx Cholecystectomy, Hx Orthopedic Surgery - L Wrist - Immunizations Immunizations up to date: No Hx Diphtheria, Pertussis, Tetanus Vaccination: No Review of Systems - Review of Systems Notes: Constitutional: denies: Chills, Diaphoresis, Fever, Malaise, +Weakness EENT: denies: Eye discharge, Blurred vision, Tearing, Double vision, Nose congestion, Nose discharge, Throat swelling, Mouth pain Cardiovascular: denies: Palpitations, Heart racing, Orthopnea, Dyspnea, Chest pain Respiratory: denies: Cough, Hurts to breathe, +Wheezing, +Shortness of breath Gastrointestinal: denies: Abdominal pain, Diarrhea, Nausea, Vomiting, Black stools, bright red blood in stool Genitourinary: denies: Burning, Dysuria, Discharge, Frequency, Flank pain, Hematuria Musculoskeletal: denies: Joint pain, Joint swelling, Muscle pain, Muscle stiffness, back pain Hematologic/Lymphatic: denies: Anemia, Easy bleeding, Easy bruising, Blood clots Neurological/Psychological: denies: Confusion, Dementia, Depression, Loss of consciousness Skin: No lesions, no masses, no skin breakdown, no abscesses Physical Exam - Vital signs Vitals: Resp BP Pulse Ox 10 L 151/54 H 93 06/27/18 18:01 06/27/18 18:01 06/27/18 18:01 Interpretation: Hypoxic, Tachypneic. No: Febrile - General General appearance: Appears well, Alert - HEENT Head: Normocephalic, Atraumatic Eyes: Normal Pupils: PERRL - Respiratory Respiratory status: No respiratory distress Chest status: Nontender Breath sounds: Nonproductive cough, Rales, Rhonchi, Wheezing Chest palpation: Normal - Cardiovascular Rhythm: Regular Heart sounds: Normal auscultation Murmur: No - Abdominal Inspection: Normal Distension: No distension Bowel sounds: Normal Tenderness: Nontender Organomegaly: No organomegaly - Rectal Tenderness: No Stool: Heme positive Hemorrhoids: None - Back Back: Normal, Nontender - Extremities General upper extremity: Normal inspection, Nontender, Normal color, Normal ROM, Normal temperature General lower extremity: Normal inspection, Nontender, Edema, Normal color, Normal ROM, Normal temperature, Normal weight bearing. No: Roman's sign - Neurological Neuro grossly intact: Yes Cognition: Normal Orientation: AAOx4 [place] Coma Scale Eye Opening: Spontaneous [place] Coma Scale Verbal: Oriented Gustavo Coma Scale Motor: Obeys Commands Gustavo Coma Scale Total: 15 Speech: Normal Motor strength normal: LUE, RUE, LLE, RLE Sensory: Normal - Psychological Associated symptoms: Normal affect, Normal mood - Skin Skin Temperature: Warm Skin Moisture: Dry Skin Color: Pale Course - Re-evaluation Re-evalutation: 06/27/18 19:36 Patient with profound hypoxia. Chronic respiratory and hypoxic failure. COPD and CHF. Has some fluid overload on the lungs as well. Has heme positive stool and low hemoglobin and hematocrit but not transfuse able. Consult with hitesh nettles's primary care doctor. Will admit at this time for acute on chronic respiratory failure. Dr. Gillette to admit. 06/27/18 19:37 Laboratory 06/27/18 06/27/18 06/27/18 16:52 16:52 16:52 WBC 10.3 RBC 3.62 L Hgb 8.3 L Hct 28.9 L MCV 80 MCH 23.0 L MCHC 28.8 L RDW 20.5 H Plt Count 162 Seg Neutrophils % 72.3 Lymphocytes % 19.8 Monocytes % 6.2 Eosinophils % 0.8 Basophils % 0.9 Absolute Neutrophils 7.4 Absolute Lymphocytes 2.0 Absolute Monocytes 0.6 Absolute Eosinophils 0.1 Absolute Basophils 0.1 Sodium 140.8 Potassium 5.0 Chloride 99 Carbon Dioxide 31 H Anion Gap 11 BUN 38 H Creatinine 1.31 H Est GFR ( Amer) 48 L Est GFR (Non-Af Amer) 40 L Glucose 244 H Calcium 8.4 Total Bilirubin 0.3 Direct Bilirubin 0.3 Neonat Total Bilirubin Not Reportable Neonat Direct Bilirubin Not Reportable Neonat Indirect Bili Not Reportable AST 15 ALT 21 Alkaline Phosphatase 66 Creatine Kinase 25 L CK-MB (CK-2) 1.29 Troponin I 0.014 Total Protein 6.3 Albumin 3.5 Urine Color Urine Appearance Urine pH Ur Specific [place] Urine Protein Urine Glucose (UA) Urine Ketones Urine Blood Urine Nitrite Urine Bilirubin Urine Urobilinogen Ur Leukocyte Esterase Urine WBC (Auto) Urine RBC (Auto) U Hyaline Cast (Auto) Urine Bacteria (Auto) Squamous Epi Cells Auto Urine Mucus (Auto) Urine Ascorbic Acid POC Stool Occult Blood 06/27/18 06/27/18 18:50 19:13 WBC RBC Hgb Hct MCV MCH MCHC RDW Plt Count Seg Neutrophils % Lymphocytes % Monocytes % Eosinophils % Basophils % Absolute Neutrophils Absolute Lymphocytes Absolute Monocytes Absolute Eosinophils Absolute Basophils Sodium Potassium Chloride Carbon Dioxide Anion Gap BUN Creatinine Est GFR ( Amer) Est GFR (Non-Af Amer) Glucose Calcium Total Bilirubin Direct Bilirubin Neonat Total Bilirubin Neonat Direct Bilirubin Neonat Indirect Bili AST ALT Alkaline Phosphatase Creatine Kinase CK-MB (CK-2) Troponin I Total Protein Albumin Urine Color YELLOW Urine Appearance CLOUDY Urine pH 5.0 Ur Specific [place] 1.023 Urine Protein 100 H Urine Glucose (UA) NEGATIVE Urine Ketones NEGATIVE Urine Blood NEGATIVE Urine Nitrite NEGATIVE Urine Bilirubin NEGATIVE Urine Urobilinogen NEGATIVE Ur Leukocyte Esterase TRACE H Urine WBC (Auto) 56 Urine RBC (Auto) 13 U Hyaline Cast (Auto) 25 Urine Bacteria (Auto) TRACE Squamous Epi Cells Auto 26 Urine Mucus (Auto) RARE Urine Ascorbic Acid NEGATIVE POC Stool Occult Blood POSITIVE Chest X-Ray 06/27/18 18:09 IMPRESSION: Cardiomegaly with pulmonary edema. Small pleural effusions. Cannot exclude airspace disease in either lower lobe. - Vital Signs Vital signs: Temp Pulse Resp BP Pulse Ox 26 H 141/52 H 92 06/27/18 18:41 06/27/18 18:41 06/27/18 18:41 - Laboratory Result Diagrams: 06/27/18 16:52 06/27/18 16:52 Laboratory results interpreted by me: 06/27/18 06/27/18 06/27/18 16:52 16:52 16:52 RBC 3.62 L Hgb 8.3 L Hct 28.9 L MCH 23.0 L MCHC 28.8 L RDW 20.5 H Carbon Dioxide 31 H BUN 38 H Creatinine 1.31 H Est GFR ( Amer) 48 L Est GFR (Non-Af Amer) 40 L Glucose 244 H Creatine Kinase 25 L NT-Pro-B Natriuret Pep 5380 H Urine Protein Ur Leukocyte Esterase 06/27/18 18:50 RBC Hgb Hct MCH MCHC RDW Carbon Dioxide BUN Creatinine Est GFR ( Amer) Est GFR (Non-Af Amer) Glucose Creatine Kinase NT-Pro-B Natriuret Pep Urine Protein 100 H Ur Leukocyte Esterase TRACE H - EKG Interpretation by Sc EKG shows normal: Intervals, QRS Complexes, ST-T Waves [place]/QRS: Right axis deviation When compared to previous EKG there are: No significant change Critical Care Note - Critical Care Note Total time excluding time spent on procedures (mins): 45 Comments: Hypoxia, tachypnea, consultation with primary care doctor, Discharge - Discharge Clinical Impression: Acute and chronic respiratory failure ([id number]) Qualifiers: Respiratory failure complication: hypoxia and hypercapnia Qualified Code(s): J96.21 - Acute and chronic respiratory failure with hypoxia Congestive heart failure (CHF) Qualifiers: Heart failure type: unspecified Heart failure chronicity: unspecified Qualified Code(s): I50.9 - Heart failure, unspecified GI bleed Qualifiers: GI bleed type/associated pathology: unspecified gastrointestinal hemorrhage type Qualified Code(s): K92.2 - Gastrointestinal hemorrhage, unspecified Condition: Fair Disposition: ADMITTED INPATIENT Admitting Provider: Nain Unit Admitted: [facility]
[2018-06-27] MEDS ORDERED: IPRATROPIUM/ALBUTEROL 0.5-2.5 MG/3 ML AMPUL NEB ONE (19:26)
--- NOTE | 2018-06-27 20:05 | EKG REPORT ---
SEVERITY:- ABNORMAL ECG - SINUS RHYTHM BORDERLINE RIGHT AXIS DEVIATION NONSPECIFIC T ABNORMALITIES, LATERAL LEADS : Confirmed by: Zeeshan Castaneda MD 27-Jun-2018 20:04:43
[2018-06-27 20:13] LABS: INTERNATIONAL RATION (INR) 1.03
[2018-06-27 20:14] LABS: PARTIAL THROMBOPLASTIN TIME 32.5 SEC (23.5-35.8)
[2018-06-27] MEDS: IPRATROPIUM/ALBUTEROL 0.5-2.5 MG/3 ML AMPUL NEB SCH (22:29)
[2018-06-27 23:33] LABS: INTERNATIONAL RATION (INR) 1.02; PROTHROMBIN TIME 13.9 SEC (11.4-15.4)
[2018-06-27 23:34] LABS: PARTIAL THROMBOPLASTIN TIME 29.9 SEC (23.5-35.8)
[2018-06-28 00:19] LABS: CREATINE KINASE MB 1.34 ng/mL (<4.55); TROPONIN I 0.012 ng/mL
[2018-06-28 00:25] LABS: FREE T4 (FREE THYROXINE) 0.34 ng/dL (0.78-2.19)
[2018-06-28 00:39] LABS: THYROID STIMULATING HORMONE 12.6 uIU/mL (0.47-4.68)
[2018-06-28 01:37] LABS: ARTERIAL BLOOD BASE EXCESS 2.2 mmol/L; ARTERIAL BLOOD H2CO3 2.01 mmol/L (1.05-1.35); ARTERIAL BLOOD HCO3 29.9 mmol/L (20-24); ARTERIAL BLOOD O2 SATURATION 95.8 % (94-98); ARTERIAL BLOOD PCO2 66.8 mmHg (35-45); ARTERIAL BLOOD PH 7.27 (7.35-7.45); ARTERIAL BLOOD PO2 92.6 mmHg (80-100)
[2018-06-28 01:38] LABS: ARTERIAL BLOOD FIO2 35%
[2018-06-28] MEDS: IPRATROPIUM/ALBUTEROL 0.5-2.5 MG/3 ML AMPUL NEB SCH ×3 (02:09→08:55)
[2018-06-28 05:16] LABS: ABSOLUTE BASOPHILS # (AUTO) 0.1 10^3/uL (0.0-0.2); ABSOLUTE LYMPHOCYTES (AUTO) 0.5 10^3/uL (0.5-4.7); ABSOLUTE MONOCYTES (AUTO) 0.1 10^3/uL (0.1-1.4); ABSOLUTE NEUT (AUTO) 8.6 10^3/uL (1.7-8.2); BASOPHILS % (AUTO) 0.6 % (0-2); HEMATOCRIT 27.1 % (36.0-47.0); LYMPHOCYTES % (AUTO) 5.1 % (13-45); MEAN CORPUSCULAR HGB CONC 29.1 g/dL (32.0-36.0); MEAN CORPUSCULAR VOLUME 79 fl (80-97); PLATELET COUNT 139 10^3/uL (150-450); RED BLOOD COUNT 3.42 10^6/uL (3.72-5.28); RED CELL DISTRIBUTION WIDTH 21.3 % (11.5-14.0); SEGMENTED NEUTROPHILS % (AUTO) 93.3 % (42-78); TOTAL CELLS COUNTED % (AUTO) 100 %; WHITE BLOOD COUNT 9.2 10^3/uL (4.0-10.5)
[2018-06-28 05:19] LABS: HEMOGLOBIN 7.9 g/dL (12.0-15.5)
[2018-06-28 05:36] LABS: ALANINE AMINOTRANSFERASE 15 U/L (9-52); ALBUMIN 3.3 g/dL (3.5-5.0); ALKALINE PHOSPHATASE 57 U/L (38-126); ASPARTATE AMINO TRANSFERASE 14 U/L (14-36); BILIRUBIN,DIRECT 0.3 mg/dL (0.0-0.4); BILIRUBIN,TOTAL 0.3 mg/dL (0.2-1.3)
[2018-06-28 05:51] LABS: CREATINE KINASE MB 0.72 ng/mL (<4.55)
[2018-06-28 05:55] LABS: TROPONIN I < 0.012 ng/mL
[2018-06-28 09:21] LABS: APPEARANCE,URINE SLIGHTLY-CLOUDY; BILIRUBIN,URINE NEGATIVE (NEGATIVE); COLOR,URINE YELLOW; GLUCOSE, URINE 150 mg/dL (NEGATIVE); KETONES,URINE NEGATIVE (NEGATIVE); LEUKOCYTE ESTERASE,URINE NEGATIVE (NEGATIVE); NITRITE,URINE NEGATIVE (NEGATIVE); PROTEIN,URINE 100 mg/dL (NEGATIVE); UROBILINOGEN,URINE NEGATIVE mg/dL (<2.0)
[2018-06-28] MEDS: ENOXAPARIN SODIUM INJ 40 MG/0.4 ML DISP.SYRIN SUBCUT SCH (09:30)
[2018-06-28] MEDS: FUROSEMIDE INJ/PF 40 MG/4 ML SDV IV SCH (09:30)
[2018-06-28 12:20] LABS: CREATINE KINASE MB 0.95 ng/mL (<4.55)
[2018-06-28 12:21] LABS: TROPONIN I < 0.012 ng/mL
[2018-06-28] MEDS: IPRATROPIUM/ALBUTEROL 0.5-2.5 MG/3 ML AMPUL NEB PRN ×2 (16:14→20:47)
--- NOTE | 2018-06-28 19:37 | XCELERA REPORT ---
[address] [address] Transthoracic Echocardiogram Report Name: GABINO ALXEANDER Age: 73 yrs Gender: Female : 1945 Patient Status: Inpatient Patient Location: [address] [place], [place] [id number] Study Date: 06/28/2018 10:52 AM Height: 62 in Weight: 185 lb BSA: 1.9 m2 Procedure: A two-dimensional transthoracic echocardiogram with color flow and Doppler was performed. The study was technically difficult with many images being suboptimal in quality. Reason For Study: CHF History: CHF. Ordering Physician: JEN MAE Performed By: Judie Randhawa Interpretation Summary The left ventricle is normal in size. There is normal left ventricular wall thickness. The left ventricular ejection fraction is within normal limits. LV EF is 65% Doppler measurements suggest normal left ventricular diastolic function The left ventricular wall motion is normal. Flattened septum is consistent with RV pressure/volume overload There is no thrombus. No ASD,VSD,or PFO. The right atrium is borderline dilated. The left atrial size is normal. There is no evidence of mitral valve prolapse. There is no vegetation seen on the mitral valve. There is no mitral valve stenosis. There is no mitral regurgitation noted. There is mild aortic stenosis There is a peak gradient of 30 mm of Hg. There is no LVOT obstruction. There is a trace amount of aortic regurgitation There is no tricuspid stenosis. There is a severe amount of tricuspid regurgitation There is servere pulmonary hypertension by echo RVSP is at 82 to 87 mm of Hg , with RA mean of 15 to 20. There is no pulmonic valvular stenosis. There is a trace amount of pulmonic regurgitation The aortic root is normal size. The inferior vena cava appeared dilated and decreased < 50% with respiration (RAP 15-20 mmHg) There is no pericardial effusion. MMode/2D Measurements & Calculations RVDd: 3.9 cm LVIDd: 4.8 cm FS: 35.5 % Ao root diam: 3.0 cm IVSd: 1.1 cm LVIDs: 3.1 cm EDV(Teich): 105.8 ml Ao root area: 6.9 cm2 LVPWd: 1.0 cm ESV(Teich): 37.2 ml LA dimension: 3.7 cm EF(Teich): 64.8 % Doppler Measurements & Calculations MV E max gaby: MV P1/2t max gaby: Ao V2 max: LV V1 max P.8 cm/sec 129.8 cm/sec 272.5 cm/sec 7.4 mmHg MV A max gaby: MV P1/2t: 59.2 msec Ao max PG: LV V1 max: 97.7 cm/sec MVA(P1/2t): 3.7 cm2 29.7 mmHg 135.7 cm/sec MV E/A: 1.3 MV dec slope: 641.9 cm/sec2 MV dec time: 0.21 sec PA V2 max: PI end-d gaby: TR max gaby: MV P1/2t-pr_phl: 86.4 cm/sec 115.4 cm/sec 407.8 cm/sec 59.2 msec PA max P.0 mmHg TR max P.5 mmHg Left Ventricle The left ventricle is normal in size. There is normal left ventricular wall thickness. The left ventricular ejection fraction is within normal limits. LV EF is 65%. Doppler measurements suggest normal left ventricular diastolic function. The left ventricular wall motion is normal. Flattened septum is consistent with RV pressure/volume overload. There is no thrombus. No ASD,VSD,or PFO. Right Ventricle The right ventricle is mild to moderately dilated. There is mild right ventricular hypertrophy. The right ventricular systolic function is mildly reduced. Atria The right atrium is borderline dilated. The left atrial size is normal. Mitral Valve There is no evidence of mitral valve prolapse. There is no vegetation seen on the mitral valve. There is no mitral valve stenosis. There is no mitral regurgitation noted. Aortic Valve There is no aortic valvular vegetation. There is mild aortic stenosis. There is a peak gradient of 30 mm of Hg. There is no LVOT obstruction. There is a trace amount of aortic regurgitation. Tricuspid Valve There is no tricuspid stenosis. There is a severe amount of tricuspid regurgitation. There is servere pulmonary hypertension by echo. RVSP is at 82 to 87 mm of Hg , with RA mean of 15 to 20. Pulmonic Valve There is no pulmonic valvular stenosis. There is a trace amount of pulmonic regurgitation. Great Vessels The aortic root is normal size. The inferior vena cava appeared dilated and decreased < 50% with respiration (RAP 15-20 mmHg). Effusions There is no pericardial effusion. : JEN MAE > Nidhi Frank
--- NOTE | 2018-06-28 21:29 | PDOC H&P ---
History of Present Illness Admission Date/PCP: 06/27/18 19:53 RONAL JOYA History of Present Illness: GABINO ALEXANDER is a 73 year old female, She has a history of severe pulmonary hypertension, chronic obstructive pulmonary disease, she came to emergency room for evaluation of respiratory distress, she complained of shortness of breath, cough, she stated that the shortness of breath started last week, she called EMS today, when EMS arrived the oxygen saturation was in the 70s, she was treated on the field with bronchodilators, Solu-Medrol. In the emergency room when she arrived she was evaluated the chest x-ray that was done was suggestive of congestive heart failure, the BNP was elevated, the arterial blood gas demonstrated Respiratory acidosis with hypoxemia, she required a noninvasive positive pressure ventilation with BiPAP. She continues to smoke cigarettePatient was initially uncooperative in the emergency room, she refused most of the blood work that was recommended she also initially refused the noninvasive positive pressure ventilator but ultimately she consented to the use of this device Past Medical History Cardiac Medical History: Reports: Hypertension, Peripheral Vascular Disease Pulmonary Medical History: Reports: Chronic Obstructive Pulmonary Disease (COPD), Pneumonia, Other - Pulmonary hypertension Endocrine Medical History: Reports: Diabetes Mellitus Type 2, Hypothyroidism GI Medical History: Reports: Gastroesophageal Reflux Disease Musculoskeltal Medical History: Reports: Arthritis Skin Medical History: Denies: Eczema, Psoriasis Psychiatric Medical History: Reports: Depression Past Surgical History Past Surgical History: Reports: Cholecystectomy, Orthopedic Surgery - L Wrist Social History Lives with: Alone Smoking Status: Current Every Day Smoker Frequency of Alcohol Use: None Hx Recreational Drug Use: No Drugs: None Hx Prescription Drug Abuse: No - Advance Directive Resuscitation Status: Do Not Resuscitate Family History Family History: CAD, DM, Hypertension Parental Family History Reviewed: Yes Children Family History Reviewed: Yes Sibling(s) Family History Reviewed.: Yes Medication/Allergy Home Medications: No Home Medications 06/27/18 Allergies/Adverse Reactions: allopurinol [From Zyloprim] Allergy (Verified 03/06/18 03:47) amitriptyline HCl [From Elavil] Allergy (Verified 03/06/18 03:47) belladonna alkaloids [From Bellergal-S] Allergy (Verified 03/06/18 03:47) cefuroxime axetil [From Ceftin] Allergy (Verified 03/06/18 03:47) celecoxib [From Celebrex] Allergy (Verified 03/06/18 03:47) cimetidine [From Tagamet] Allergy (Verified 03/06/18 03:47) codeine [Codeine] Allergy (Verified 03/06/18 03:47) doxepin HCl [From Sinequan] Allergy (Verified 03/06/18 03:47) ergotamine tartrate [From Bellergal-S] Allergy (Verified 03/06/18 03:47) fluoxetine HCl [From Prozac] Allergy (Verified 03/06/18 03:47) hydroxyzine HCl [From Atarax] Allergy (Verified 03/06/18 03:47) indigotindisulfonic acid [From Indigo [place]] Allergy (Verified 03/06/18 03:47) malathion Allergy (Verified 03/06/18 03:47) mefenamic acid Allergy (Verified 03/06/18 03:47) Milk Containing Products Allergy (Verified 03/06/18 03:47) naproxen sodium [From Anaprox] Allergy (Verified 03/06/18 03:47) nefazodone HCl [From Serzone] Allergy (Verified 03/06/18 03:47) phenylephrine tannate [From Deconsal CT] Allergy (Verified 03/06/18 03:47) pyrilamine tannate [From [place]cons[place] CT] Allergy (Verified 03/06/18 03:47) tolterodine tartrate [From Detrol] Allergy (Verified 03/06/18 03:47) trazodone HCl [From Desyrel] Allergy (Verified 03/06/18 03:47) morphine Adverse Reaction (Verified 04/11/18 21:58) renuzil Allergy (Uncoded 01/24/18 17:48) surgical steel Allergy (Uncoded 01/24/18 17:48) Review of Systems Constitutional: ABSENT: chills, fever(s), headache(s), weight gain, weight loss Eyes: ABSENT: visual disturbances Ears: ABSENT: hearing changes Cardiovascular: PRESENT: dyspnea on exertion. ABSENT: chest pain, edema, orthropnea, palpitations Respiratory: ABSENT: cough, hemoptysis Gastrointestinal: ABSENT: abdominal pain, constipation, diarrhea, hematemesis, hematochezia, nausea, vomiting Genitourinary: ABSENT: dysuria, hematuria Musculoskeletal: ABSENT: joint swelling Integumentary: ABSENT: rash, wounds Neurological: ABSENT: abnormal gait, abnormal speech, confusion, dizziness, focal weakness, syncope Psychiatric: ABSENT: anxiety, depression, homidical ideation, suicidal ideation Endocrine: ABSENT: cold intolerance, heat intolerance, menstrual abnormalities, polydipsia, polyuria Hematologic/Lymphatic: ABSENT: easy bleeding, easy bruising, lymphadenopathy Physical Exam Vital Signs: Temp Pulse Resp BP Pulse Ox 98.5 F 66 19 131/44 H 98 06/28/18 19:49 06/28/18 20:47 06/28/18 20:47 06/28/18 19:49 06/28/18 20:47 Intake & Output 06/27/18 06/28/18 06/29/18 06:59 06:59 06:59 Intake Total 1480 Output Total 1575 Balance -95 Weight 84.7 kg General appearance: PRESENT: no acute distress, well-developed, well-nourished Head exam: PRESENT: atraumatic, normocephalic Eye exam: PRESENT: conjunctiva pink, EOMI, PERRLA Ear exam: PRESENT: normal external ear exam Mouth exam: PRESENT: moist, tongue midline Neck exam: PRESENT: full ROM Respiratory exam: PRESENT: crackles, rhonchi Cardiovascular exam: PRESENT: +S1, +S2 Pulses: PRESENT: normal dorsalis pedis pul, +2 pedal pulses bilateral Vascular exam: PRESENT: normal capillary refill GI/Abdominal exam: PRESENT: normal bowel sounds, soft Rectal exam: PRESENT: deferred Neurological exam: PRESENT: alert, awake, oriented to person, oriented to place, oriented to time, oriented to situation, CN II-XII grossly intact Psychiatric exam: PRESENT: appropriate affect, normal mood Skin exam: PRESENT: dry, intact, warm Results Laboratory Results: 06/28/18 05:04 06/27/18 16:52 06/27/18 06/27/18 06/27/18 23:00 23:00 23:00 WBC RBC Hgb Hct MCV MCH MCHC RDW Plt Count Seg Neutrophils % Lymphocytes % Monocytes % Eosinophils % Basophils % Absolute Neutrophils Absolute Lymphocytes Absolute Monocytes Absolute Eosinophils Absolute Basophils Carbonic Acid HCO3/H2CO3 Ratio ABG pH ABG pCO2 ABG pO2 ABG HCO3 ABG O2 Saturation ABG Base Excess FiO2 Lactic Acid Magnesium 1.9 Total Bilirubin AST ALT Alkaline Phosphatase Total Protein Albumin TSH 12.60 H Free T4 0.34 L Urine Color Urine Appearance Urine pH Ur Specific [place] Urine Protein Urine Glucose (UA) Urine Ketones Urine Blood Urine Nitrite Ur Leukocyte Esterase Urine WBC (Auto) Urine RBC (Auto) Blood Type A POSITIVE Antibody Screen NEGATIVE 06/27/18 06/28/18 06/28/18 23:15 01:20 05:04 WBC 9.2 RBC 3.42 L Hgb 7.9 L Hct 27.1 L MCV 79 L MCH 23.0 L MCHC 29.1 L RDW 21.3 H Plt Count 139 L Seg Neutrophils % 93.3 H Lymphocytes % 5.1 L Monocytes % 1.0 L Eosinophils % 0.0 Basophils % 0.6 Absolute Neutrophils 8.6 H Absolute Lymphocytes 0.5 Absolute Monocytes 0.1 Absolute Eosinophils 0.0 Absolute Basophils 0.1 Carbonic Acid 2.01 H HCO3/H2CO3 Ratio 14:1 ABG pH 7.27 L ABG pCO2 66.8 H ABG pO2 92.6 ABG HCO3 29.9 H ABG O2 Saturation 95.8 ABG Base Excess 2.2 FiO2 35% Lactic Acid 1.9 Magnesium Total Bilirubin AST ALT Alkaline Phosphatase Total Protein Albumin TSH Free T4 Urine Color Urine Appearance Urine pH Ur Specific [place] Urine Protein Urine Glucose (UA) Urine Ketones Urine Blood Urine Nitrite Ur Leukocyte Esterase Urine WBC (Auto) Urine RBC (Auto) Blood Type Antibody Screen 06/28/18 06/28/18 05:04 08:48 WBC RBC Hgb Hct MCV MCH MCHC RDW Plt Count Seg Neutrophils % Lymphocytes % Monocytes % Eosinophils % Basophils % Absolute Neutrophils Absolute Lymphocytes Absolute Monocytes Absolute Eosinophils Absolute Basophils Carbonic Acid HCO3/H2CO3 Ratio ABG pH ABG pCO2 ABG pO2 ABG HCO3 ABG O2 Saturation ABG Base Excess FiO2 Lactic Acid Magnesium Total Bilirubin 0.3 AST 14 ALT 15 Alkaline Phosphatase 57 Total Protein 6.0 L Albumin 3.3 L TSH Free T4 Urine Color YELLOW Urine Appearance SLIGHTLY-CLOUDY Urine pH 5.0 Ur Specific [place] 1.020 Urine Protein 100 H Urine Glucose (UA) 150 H Urine Ketones NEGATIVE Urine Blood NEGATIVE Urine Nitrite NEGATIVE Ur Leukocyte Esterase NEGATIVE Urine WBC (Auto) 2 Urine RBC (Auto) 1 Blood Type Antibody Screen 06/27/18 06/27/18 06/27/18 16:52 16:52 16:52 Creatine Kinase 25 L CK-MB (CK-2) 1.29 Troponin I 0.014 NT-Pro-B Natriuret Pep 5380 H 06/27/18 06/27/18 06/28/18 23:00 23:00 05:04 Creatine Kinase 21 L < 20 L CK-MB (CK-2) 1.34 Troponin I 0.012 NT-Pro-B Natriuret Pep 06/28/18 06/28/18 06/28/18 05:04 11:25 11:25 Creatine Kinase 24 L CK-MB (CK-2) 0.72 0.95 Troponin I < 0.012 < 0.012 NT-Pro-B Natriuret Pep Impressions: Chest X-Ray 06/27/18 18:09 IMPRESSION: Cardiomegaly with pulmonary edema. Small pleural effusions. Cannot exclude airspace disease in either lower lobe. Assessment & Plan - Diagnosis (1) Acute hypercapnic respiratory failure Is this a current diagnosis for this admission?: Yes Plan: She requires noninvasive positive pressure ventilation with BiPAP (2) Pulmonary hypertension Is this a current diagnosis for this admission?: Yes Plan: The 2D echo that was done demonstrated severe pulmonary hypertension, the ejection fraction of left ventricle was normalThere was no Doppler evidence of diastolic dysfunction of left ventricle (3) Chronic obstructive pulmonary disease (COPD) Qualifiers: COPD type: unspecified COPD Qualified Code(s): J44.9 - Chronic obstructive pulmonary disease, unspecified Is this a current diagnosis for this admission?: Yes Plan: She is not overly wheezing (4) Acute respiratory failure with hypoxia and hypercarbia Is this a current diagnosis for this admission?: Yes
[2018-06-29] MEDS: IPRATROPIUM/ALBUTEROL 0.5-2.5 MG/3 ML AMPUL NEB PRN ×3 (04:55→21:37)
[2018-06-29 05:28] LABS: ABSOLUTE BASOPHILS # (AUTO) 0.1 10^3/uL (0.0-0.2); ABSOLUTE EOSINOPHILS # (AUTO) 0.1 10^3/uL (0.0-0.6); ABSOLUTE LYMPHOCYTES (AUTO) 1.7 10^3/uL (0.5-4.7); ABSOLUTE MONOCYTES (AUTO) 0.7 10^3/uL (0.1-1.4); BASOPHILS % (AUTO) 0.6 % (0-2); EOSINOPHILS % (AUTO) 0.5 % (0-6); MEAN CORPUSCULAR HEMOGLOBIN 23.4 pg (27.0-33.4); MEAN CORPUSCULAR HGB CONC 30.1 g/dL (32.0-36.0); MEAN CORPUSCULAR VOLUME 78 fl (80-97); MONOCYTES % (AUTO) 6.5 % (3-13); PLATELET COUNT 155 10^3/uL (150-450); RED BLOOD COUNT 3.22 10^6/uL (3.72-5.28); RED CELL DISTRIBUTION WIDTH 21.1 % (11.5-14.0); SEGMENTED NEUTROPHILS % (AUTO) 76.4 % (42-78); TOTAL CELLS COUNTED % (AUTO) 100 %; WHITE BLOOD COUNT 10.5 10^3/uL (4.0-10.5)
[2018-06-29 05:38] LABS: HEMOGLOBIN 7.5 g/dL (12.0-15.5)
[2018-06-29 05:49] LABS: ANION GAP 8 (5-19); BLOOD UREA NITROGEN 28 mg/dL (7-20); CALCIUM 8.4 mg/dL (8.4-10.2); CARBON DIOXIDE 34 mmol/L (22-30); CHLORIDE 97 mmol/L (98-107); GLUCOSE 151 mg/dL (75-110); POTASSIUM 4.5 mmol/L (3.6-5.0); SODIUM 139.1 mmol/L (137-145)
[2018-06-29] MEDS: FUROSEMIDE INJ/PF 40 MG/4 ML SDV IV SCH (09:45)
[2018-06-29] MEDS: ENOXAPARIN SODIUM INJ 40 MG/0.4 ML DISP.SYRIN SUBCUT SCH (09:45)
--- NOTE | 2018-06-29 13:42 | PDOC PROGRESS REPORT ---
Subjective Progress Note for:: 06/29/18 Subjective:: Patient is seen by the bedside, she is wheezing today, the blood work that was done revealed anemia, hemoglobin 7.5, there is no active bleeding Reason For Visit: HEART FAILURE, COPD Physical Exam Vital Signs: Temp Pulse Resp BP Pulse Ox 98.1 F 58 L 18 126/48 H 94 06/29/18 11:12 06/29/18 11:42 06/29/18 11:42 06/29/18 11:12 06/29/18 11:42 Intake & Output 06/28/18 06/29/18 06/30/18 06:59 06:59 06:59 Intake Total 1480 1469 Output Total 2875 1080 Balance -1395 389 Weight 84.7 kg 86.4 kg General appearance: PRESENT: mild distress Head exam: PRESENT: atraumatic, normocephalic Eye exam: PRESENT: PERRLA Neck exam: PRESENT: full ROM Respiratory exam: PRESENT: wheezes Cardiovascular exam: PRESENT: RRR, +S1, +S2 Pulses: PRESENT: normal dorsalis pedis pul, +2 pedal pulses bilateral Vascular exam: PRESENT: normal capillary refill GI/Abdominal exam: PRESENT: normal bowel sounds, soft Rectal exam: PRESENT: deferred Neurological exam: PRESENT: alert, CN II-XII grossly intact Psychiatric exam: PRESENT: appropriate affect, normal mood Skin exam: PRESENT: dry, intact, warm Results Laboratory Results: 06/29/18 04:51 06/29/18 04:51 06/29/18 06/29/18 04:51 04:51 WBC 10.5 RBC 3.22 L Hgb 7.5 L Hct 25.0 L MCV 78 L MCH 23.4 L MCHC 30.1 L RDW 21.1 H Plt Count 155 Seg Neutrophils % 76.4 Lymphocytes % 16.0 Monocytes % 6.5 Eosinophils % 0.5 Basophils % 0.6 Absolute Neutrophils 8.0 Absolute Lymphocytes 1.7 Absolute Monocytes 0.7 Absolute Eosinophils 0.1 Absolute Basophils 0.1 Sodium 139.1 Potassium 4.5 Chloride 97 L Carbon Dioxide 34 H Anion Gap 8 BUN 28 H Creatinine 1.04 Est GFR ( Amer) > 60 Est GFR (Non-Af Amer) 52 L Glucose 151 H Calcium 8.4 05/16/19 05/16/19 05/16/19 16:52 16:52 16:52 Creatine Kinase 25 L CK-MB (CK-2) 1.29 Troponin I 0.014 NT-Pro-B Natriuret Pep 5380 H 06/27/18 06/27/18 06/28/18 23:00 23:00 05:04 Creatine Kinase 21 L < 20 L CK-MB (CK-2) 1.34 Troponin I 0.012 NT-Pro-B Natriuret Pep 06/28/18 06/28/18 06/28/18 05:04 11:25 11:25 Creatine Kinase 24 L CK-MB (CK-2) 0.72 0.95 Troponin I < 0.012 < 0.012 NT-Pro-B Natriuret Pep Impressions: Chest X-Ray 06/27/18 18:09 IMPRESSION: Cardiomegaly with pulmonary edema. Small pleural effusions. Cannot exclude airspace disease in either lower lobe. Assessment & Plan - Diagnosis (1) Acute hypercapnic respiratory failure Is this a current diagnosis for this admission?: Yes (2) Pulmonary hypertension Is this a current diagnosis for this admission?: Yes (3) Chronic obstructive pulmonary disease (COPD) Qualifiers: COPD type: unspecified COPD Qualified Code(s): J44.9 - Chronic obstructive pulmonary disease, unspecified Is this a current diagnosis for this admission?: Yes (4) Acute respiratory failure with hypoxia and hypercarbia Is this a current diagnosis for this admission?: Yes (5) COPD with acute exacerbation Is this a current diagnosis for this admission?: Yes Plan: Start Solu-Medrol 125 mg IV every 8 (6) Anemia Qualifiers: Anemia type: unspecified type Qualified Code(s): D64.9 - Anemia, unspecified Is this a current diagnosis for this admission?: Yes Plan: Anemia work-up ordered
[2018-06-29 14:54] LABS: ABSOLUTE RETICS # 0.142 10^6/uL (0.028-0.122)
[2018-06-29 14:59] LABS: IRON(TIBC) 17.8 ug/dL (37-170)
[2018-06-29 15:19] LABS: FREE T4 (FREE THYROXINE) 0.3 ng/dL (0.78-2.19)
[2018-06-29] MEDS: METHYLPREDNISOLONE INJ 125 MG/2 ML SDV IV SCH ×2 (15:21→21:28)
[2018-06-29 15:33] LABS: THYROID STIMULATING HORMONE 25.2 uIU/mL (0.47-4.68)
[2018-06-29 15:37] LABS: FERRITIN 7.63 ng/mL (11.1-264.0)
[2018-06-30] MEDS: METHYLPREDNISOLONE INJ 125 MG/2 ML SDV IV SCH ×3 (06:08→21:01)
[2018-06-30] MEDS ORDERED: LEVOTHYROXINE SODIUM 0.1 MG TABLET PO SCH (08:00)
[2018-06-30] MEDS ORDERED: LEVOTHYROXINE SODIUM 0.025 MG TABLET PO SCH (08:00)
[2018-06-30] MEDS: LEVOTHYROXINE SODIUM 0.15 MG TABLET PO SCH (09:28)
[2018-06-30] MEDS: LEVOTHYROXINE SODIUM 0.1 MG TABLET PO SCH (09:28)
[2018-06-30] MEDS: BUSPIRONE HCL 10 MG TABLET PO SCH (09:28)
[2018-06-30] MEDS: ENOXAPARIN SODIUM INJ 40 MG/0.4 ML DISP.SYRIN SUBCUT SCH (09:29)
[2018-06-30] MEDS: FUROSEMIDE INJ/PF 40 MG/4 ML SDV IV SCH (09:29)
[2018-06-30] MEDS: IPRATROPIUM/ALBUTEROL 0.5-2.5 MG/3 ML AMPUL NEB PRN ×2 (10:39→15:53)
[2018-06-30] MEDS ORDERED: POLYETHYLENE GLYCOL 3350 POWDER 17 GM/1 PACKET PO ONE (12:03)
[2018-06-30] MEDS ORDERED: BISACODYL 5 MG TABEC PO ONE ×2 (12:05→20:00)
[2018-06-30] MEDS ORDERED: DEXTROSE 50%-WATER 25 GM/50 ML DISP.SYRIN IV PRN ×2 (12:07)
[2018-06-30] MEDS ORDERED: DEXTROSE 40% GEL 15 GM TUBE PO PRN ×2 (12:07)
[2018-06-30] MEDS ORDERED: GLUCAGON,HUMAN RECOMB 1 MG INJ SUBCUT PRN (12:07)
--- NOTE | 2018-06-30 13:01 | PDOC CONSULTATION ---
Consultation Consult Date: 06/30/18 Provider Consulted: SURGICAL SURGICALIST MD Consult reason:: anemia, needs endoscopy History of Present Illness Admission Date/PCP: 06/27/18 19:53 RONAL JOYA History of Present Illness: GABINO ALEXANDER is a 73 year old female seen in consultation at the request of Dr. Gillette for anemia. The patient has a history of colon polyps and peptic ulcer disease. She takes Aleve and Excedrin at home for pain. She does not take a PPI or any antiacid medication. She has not had a colonoscopy or EGD in many years. She was admitted for shortness of breath. She reports a history of COPD. She denies a history of blood thinners or antiplatelets. She also denies a history of anemia. She denies abdominal pain, nausea, vomiting, reflux, melena, hematochezia, hematemesis. She also denies chest pain, blurry vision, changes in hearing, malaise, fevers, chills. She does report occasional fatigue. Past Medical History Cardiac Medical History: Reports: Congestive Heart Failure, Hypertension, Peripheral Vascular Disease Pulmonary Medical History: Reports: Chronic Obstructive Pulmonary Disease (COPD), Pneumonia, Other - Pulmonary hypertension Endocrine Medical History: Reports: Diabetes Mellitus Type 2, Hypothyroidism GI Medical History: Reports: Gastroesophageal Reflux Disease Denies: Crohn's Disease, Ulcerative Colitis Musculoskeltal Medical History: Reports: Arthritis Denies: Gout Skin Medical History: Denies: Eczema, Psoriasis Psychiatric Medical History: Reports: Depression Denies: Bipolar Disorder, Personality Disorder, Schizoaffective Disorder Traumatic Medical History: Denies: Traumatic Brain Injury Past Surgical History Past Surgical History: Reports: Cholecystectomy, Orthopedic Surgery - L Wrist Social History Lives with: Alone Smoking Status: Current Every Day Smoker Frequency of Alcohol Use: None Hx Recreational Drug Use: No Drugs: None Hx Prescription Drug Abuse: No - Advance Directive Resuscitation Status: Do Not Resuscitate Family History Family History: CAD, DM, Hypertension Parental Family History Reviewed: Yes Children Family History Reviewed: Yes Sibling(s) Family History Reviewed.: Yes Medication/Allergy Home Medications: No Home Medications 06/27/18 Allergies/Adverse Reactions: allopurinol [From Zyloprim] Allergy (Verified 03/06/18 03:47) amitriptyline HCl [From Elavil] Allergy (Verified 03/06/18 03:47) belladonna alkaloids [From Bellergal-S] Allergy (Verified 03/06/18 03:47) cefuroxime axetil [From Ceftin] Allergy (Verified 03/06/18 03:47) celecoxib [From Celebrex] Allergy (Verified 03/06/18 03:47) cimetidine [From Tagamet] Allergy (Verified 03/06/18 03:47) codeine [Codeine] Allergy (Verified 03/06/18 03:47) doxepin HCl [From Sinequan] Allergy (Verified 03/06/18 03:47) ergotamine tartrate [From Bellergal-S] Allergy (Verified 03/06/18 03:47) fluoxetine HCl [From Prozac] Allergy (Verified 03/06/18 03:47) hydroxyzine HCl [From Atarax] Allergy (Verified 03/06/18 03:47) indigotindisulfonic acid [From Indigo [place]] Allergy (Verified 03/06/18 03:47) malathion Allergy (Verified 03/06/18 03:47) mefenamic acid Allergy (Verified 03/06/18 03:47) Milk Containing Products Allergy (Verified 03/06/18 03:47) naproxen sodium [From Anaprox] Allergy (Verified 03/06/18 03:47) nefazodone HCl [From Serzone] Allergy (Verified 03/06/18 03:47) phenylephrine tannate [From Decons[place] CT] Allergy (Verified 03/06/18 03:47) pyrilamine tannate [From Decons[place] CT] Allergy (Verified 03/06/18 03:47) tolterodine tartrate [From Detrol] Allergy (Verified 03/06/18 03:47) trazodone HCl [From Desyrel] Allergy (Verified 03/06/18 03:47) morphine Adverse Reaction (Verified 04/11/18 21:58) renuzil Allergy (Uncoded 01/24/18 17:48) surgical steel Allergy (Uncoded 01/24/18 17:48) Review of Systems Constitutional: ABSENT: chills, fever(s), headache(s) Eyes: ABSENT: visual disturbances Ears: ABSENT: hearing changes Nose, Mouth, and Throat: ABSENT: sore throat Cardiovascular: PRESENT: dyspnea on exertion. ABSENT: chest pain Respiratory: PRESENT: dyspnea Gastrointestinal: ABSENT: abdominal pain, heartburn, hematemesis, hematochezia, melena, nausea, vomiting Genitourinary: ABSENT: difficulty urinating Musculoskeletal: ABSENT: back pain Integumentary: ABSENT: pruritus, rash Neurological: ABSENT: confusion, convulsions, dizziness Psychiatric: ABSENT: anxiety, depression Endocrine: ABSENT: cold intolerance, heat intolerance Hematologic/Lymphatic: ABSENT: easy bleeding, easy bruising Physical Exam Vital Signs: Temp Pulse Resp BP Pulse Ox 97.5 F 60 18 143/55 H 92 06/30/18 07:44 06/30/18 10:39 06/30/18 10:39 06/30/18 07:44 06/30/18 10:39 Intake & Output 06/29/18 06/30/18 07/01/18 06:59 06:59 06:59 Intake Total 1480 1949 Output Total 2875 3555 Balance -1395 -1606 Weight 86.4 kg 83.1 kg General appearance: PRESENT: obese Head exam: PRESENT: atraumatic, normocephalic Eye exam: PRESENT: EOMI, PERRLA Mouth exam: PRESENT: moist, neck supple Neck exam: ABSENT: meningismus, tenderness, thyromegaly, tracheal deviation Respiratory exam: PRESENT: unlabored, wheezes. ABSENT: chest wall tenderness, tachypnea Cardiovascular exam: PRESENT: RRR Pulses: PRESENT: normal radial pulses Vascular exam: PRESENT: normal capillary refill. ABSENT: pallor GI/Abdominal exam: PRESENT: hernia - Large lower midline abdominal wall hernia present. It is reducible. It is nontender., soft. ABSENT: distended, firm, guarding, tenderness Rectal exam: PRESENT: deferred Extremities exam: ABSENT: clubbing Neurological exam: PRESENT: alert, awake, oriented to person, oriented to place, oriented to time, oriented to situation, CN II-XII grossly intact Psychiatric exam: ABSENT: agitated, anxious, depressed Focused psych exam: ABSENT: delusional Skin exam: ABSENT: cyanosis, erythema, jaundice Results Laboratory Results: 06/29/18 04:51 06/29/18 04:51 06/29/18 06/29/18 06/29/18 14:32 14:32 14:32 Retic Count (auto) 4.20 H Absolute Retic 0.142 H Iron 17.8 L TIBC 445 % Saturation 4 Ferritin 7.63 L Vitamin B12 321.0 Folate 10.50 TSH 25.20 H Free T4 0.30 L 06/27/18 06/27/18 06/27/18 16:52 16:52 16:52 Creatine Kinase 25 L CK-MB (CK-2) 1.29 Troponin I 0.014 NT-Pro-B Natriuret Pep 5380 H 06/27/18 06/27/18 06/28/18 23:00 23:00 05:04 Creatine Kinase 21 L < 20 L CK-MB (CK-2) 1.34 Troponin I 0.012 NT-Pro-B Natriuret Pep 06/28/18 06/28/18 06/28/18 05:04 11:25 11:25 Creatine Kinase 24 L CK-MB (CK-2) 0.72 0.95 Troponin I < 0.012 < 0.012 NT-Pro-B Natriuret Pep Impressions: Chest X-Ray 06/27/18 18:09 IMPRESSION: Cardiomegaly with pulmonary edema. Small pleural effusions. Cannot exclude airspace disease in either lower lobe. Assessment & Plan - Diagnosis (1) Anemia Qualifiers: Anemia type: unspecified type Qualified Code(s): D64.9 - Anemia, unspecified Is this a current diagnosis for this admission?: Yes - Plan Summary Plan Summary: This is a 73-year-old female with a history of peptic ulcer disease as well as colon polyps. The patient has not had an endoscopy in many years, per her report. She denies any obvious melena, hematochezia, or hematemesis. She has no abdominal pain or symptoms of ulcer disease. The patient does take Aleve and Excedrin at home on a frequent basis. The patient has worsening anemia. Her anemia has worsened over the last 24 months (per hemoglobin levels in the electronic medical record). I have offered her upper and lower endoscopy. I have discussed the risks and benefits with her. The patient is willing to undergo the procedures. She is requesting endoscopy for investigation into her anemia. I will make plans to have these exams performed tomorrow. The patient will undergo colon prep tonight. N.p.o. after midnight.
[2018-06-30 14:30] LABS: HEMATOCRIT 27.1 % (36.0-47.0); MEAN CORPUSCULAR HEMOGLOBIN 22.7 pg (27.0-33.4); MEAN CORPUSCULAR HGB CONC 29.6 g/dL (32.0-36.0); MEAN CORPUSCULAR VOLUME 77 fl (80-97); PLATELET COUNT 179 10^3/uL (150-450); RED BLOOD COUNT 3.53 10^6/uL (3.72-5.28); RED CELL DISTRIBUTION WIDTH 21.3 % (11.5-14.0); WHITE BLOOD COUNT 7.1 10^3/uL (4.0-10.5)
[2018-06-30 15:01] LABS: ABSOLUTE LYMPHOCYTES# (MANUAL) 0.1 10^3/uL (0.5-4.7); ABSOLUTE MONOCYTES # (MANUAL) 0.1 10^3/uL (0.1-1.4); ABSOLUTE NEUTROPHILS# (MANUAL) 6.8 10^3/uL (1.7-8.2); ANISOCYTOSIS SLIGHT; BASOPHILS % (MANUAL) 0 % (0-2); EOSINOPHILS % (MANUAL) 0 % (0-6); HYPOCHROMASIA 1+; LYMPHOCYTES % (MANUAL) 2 % (13-45); MONOCYTES % (MANUAL) 2 % (3-13); PLATELET COMMENT ADEQUATE; PLATELET GIANT PRESENT; PLATELET LARGE PRESENT; POLYCHROMASIA SLIGHT; SEGMENTED NEUTROPHILS % (MAN) 96 % (42-78); TOTAL CELLS COUNTED 100
--- NOTE | 2018-06-30 18:42 | PDOC PROGRESS REPORT ---
Subjective Progress Note for:: 06/30/18 Subjective:: She has iron deficiency anemia, she has not had colonoscopy or EGD many years consultation is requested from surgery for EGD and colonoscopy Reason For Visit: HEART FAILURE, COPD Physical Exam Vital Signs: Temp Pulse Resp BP Pulse Ox 98.0 F 65 23 H 165/52 H 92 06/30/18 16:01 06/30/18 16:01 06/30/18 16:01 06/30/18 16:01 06/30/18 16:01 Intake & Output 06/29/18 06/30/18 07/01/18 06:59 06:59 06:59 Intake Total 1480 1949 963 Output Total 3388 2182 7543 Balance -6230 -3047 -0482 Weight 86.4 kg 83.1 kg General appearance: PRESENT: no acute distress Eye exam: PRESENT: PERRLA Respiratory exam: PRESENT: wheezes Cardiovascular exam: PRESENT: +S1, +S2 GI/Abdominal exam: PRESENT: soft Neurological exam: PRESENT: alert Results Laboratory Results: 06/30/18 13:15 06/29/18 04:51 06/30/18 13:15 WBC 7.1 RBC 3.53 L Hgb 8.0 L Hct 27.1 L MCV 77 L MCH 22.7 L MCHC 29.6 L RDW 21.3 H Plt Count 179 Seg Neutrophils % Not Reportable Lymphocytes % Not Reportable Monocytes % Not Reportable Eosinophils % Not Reportable Basophils % Not Reportable Absolute Neutrophils Not Reportable Absolute Lymphocytes Not Reportable Absolute Monocytes Not Reportable Absolute Eosinophils Not Reportable Absolute Basophils Not Reportable 06/28/18 08:48 Clean Catch Midstream Urine Culture - Final C.albicans/C.dubliniensis Mixed Urogenital [place] 06/27/18 06/27/18 06/27/18 16:52 16:52 16:52 Creatine Kinase 25 L CK-MB (CK-2) 1.29 Troponin I 0.014 NT-Pro-B Natriuret Pep 5380 H 06/27/18 06/27/18 06/28/18 23:00 23:00 05:04 Creatine Kinase 21 L < 20 L CK-MB (CK-2) 1.34 Troponin I 0.012 NT-Pro-B Natriuret Pep 06/28/18 06/28/18 06/28/18 05:04 11:25 11:25 Creatine Kinase 24 L CK-MB (CK-2) 0.72 0.95 Troponin I < 0.012 < 0.012 NT-Pro-B Natriuret Pep Impressions: Chest X-Ray 06/27/18 18:09 IMPRESSION: Cardiomegaly with pulmonary edema. Small pleural effusions. Cannot exclude airspace disease in either lower lobe. Assessment & Plan - Diagnosis (1) Acute hypercapnic respiratory failure Is this a current diagnosis for this admission?: Yes (2) Pulmonary hypertension Is this a current diagnosis for this admission?: Yes (3) Chronic obstructive pulmonary disease (COPD) Qualifiers: COPD type: unspecified COPD Qualified Code(s): J44.9 - Chronic obstructive pulmonary disease, unspecified Is this a current diagnosis for this admission?: Yes Plan: Continue IV Solu-Medrol, bronchodilators (4) Acute respiratory failure with hypoxia and hypercarbia Is this a current diagnosis for this admission?: Yes (5) COPD with acute exacerbation Is this a current diagnosis for this admission?: Yes (6) Anemia Qualifiers: Anemia type: iron deficiency Iron deficiency anemia type: unspecified iron deficiency Qualified Code(s): D50.9 - Iron deficiency anemia, unspecified Is this a current diagnosis for this admission?: Yes Plan: She has an deficiency anemia she will need colonoscopy and EGD
[2018-07-01] MEDS: IPRATROPIUM/ALBUTEROL 0.5-2.5 MG/3 ML AMPUL NEB PRN (00:38)
[2018-07-01] MEDS: LEVOTHYROXINE SODIUM 0.15 MG TABLET PO SCH (05:00)
[2018-07-01] MEDS: LEVOTHYROXINE SODIUM 0.1 MG TABLET PO SCH (05:00)
[2018-07-01] MEDS: METHYLPREDNISOLONE INJ 125 MG/2 ML SDV IV SCH ×3 (05:14→21:54)
--- NOTE | 2018-07-01 09:10 | Progress Note ---
Provider Note Provider Note: Patient seen and examined, plan EGD and colonoscopy today.
[2018-07-01] MEDS: ENOXAPARIN SODIUM INJ 40 MG/0.4 ML DISP.SYRIN SUBCUT SCH (09:30)
[2018-07-01] MEDS: BUSPIRONE HCL 10 MG TABLET PO SCH (09:30)
[2018-07-01] MEDS: FUROSEMIDE INJ/PF 40 MG/4 ML SDV IV SCH (10:25)
[2018-07-01] MEDS ORDERED: ONDANSETRON HCL INJ/PF 4 MG/2 ML SDV ONE (13:39)
[2018-07-01] MEDS ORDERED: DIPHENHYDRAMINE HCL 50 MG/ML VIAL ONE (13:39)
[2018-07-01] MEDS ORDERED: NALOXONE HCL INJ/PF 0.4 MG/1 ML SDV ONE (13:40)
[2018-07-01] MEDS ORDERED: GLUCAGON,HUMAN RECOMB 1 MG INJ ONE (13:40)
[2018-07-01] MEDS ORDERED: EPINEPHRINE INJ 1 MG/10 ML DISP.SYRIN ONE (13:40)
[2018-07-01] MEDS ORDERED: FLUMAZENIL INJ 0.5 MG/5 ML VIAL ONE (13:40)
[2018-07-01] MEDS: MIDAZOLAM 2 MG/2 ML INJ ONE ×3 (14:02→14:28)
[2018-07-01] MEDS: FENTANYL CITRATE INJ/PF 100 MCG/2 ML AMPUL ONE ×4 (14:04→14:30)
--- NOTE | 2018-07-01 15:12 | Operative Report ---
Nonrecallable Operative Report DATE OF SURGERY: 07/01/18 PREOPERATIVE DIAGNOSIS: Anemia, unknown cause POSTOPERATIVE DIAGNOSIS: Anemia. Hemorrhagic gastritis. Bile reflux. Small hiatal hernia. Right colon telangectasia. Left colon and sigmoid colon scattered diverticulosis OPERATION: EGD with biopsy. Colonoscopy to cecum SURGEON: ИРИНА HINSON ANESTHESIA: Moderate Sedation - Provided by Dr. Hinson: Versed 2 mg IVP; Fentanyl 50 mcg IVP TISSUE REMOVED OR ALTERED: biopsy gastric mucosa COMPLICATIONS: none ESTIMATED BLOOD LOSS: n/a INTRAOPERATIVE FINDINGS: EGD= Hemorrhagic gastritis. Bile reflux. Small hiatal hernia. Colonoscopy= Right colon telangectasia. Left colon and sigmoid colon scattered diverticulosis PROCEDURE: see dictation
--- NOTE | 2018-07-01 15:25 | Progress Note ---
Provider Note Provider Note: EGD with bx and colonoscoy to cecum completed. EGD= bile reflux, hemorrhagic gastritis, small hiatal hernia Colonosopcy to cecum= telangectasia right colon; scttered divericulosis left colon P/ Recommend high dose PPI/H2 Blockers as long as she is on IV steroids Lifetime seed free diet. I will sign off; please, call me with questions
--- NOTE | 2018-07-01 17:18 | PDOC PROGRESS REPORT ---
Subjective Progress Note for:: 07/01/18 Subjective:: Patient was seen today by the bedside she underwent upper endoscopy and colonoscopy, she was found to have acid reflux, hemorrhagic gastritis, small hiatal hernia, the colonoscopy demonstrated telangiectasia of the right colon with scattered diverticulosis of the left colon Reason For Visit: HEART FAILURE, COPD Physical Exam Vital Signs: Temp Pulse Resp BP Pulse Ox 97.8 F 59 L 18 134/58 H 92 07/01/18 15:28 07/01/18 15:28 07/01/18 15:28 07/01/18 15:28 07/01/18 15:28 Intake & Output 06/30/18 07/01/18 07/02/18 06:59 06:59 06:59 Intake Total 1949 963 300 Output Total 3555 2100 900 Balance -1606 -1137 -600 Weight 83.1 kg 78 kg General appearance: PRESENT: no acute distress Head exam: PRESENT: atraumatic, normocephalic Eye exam: PRESENT: conjunctiva pink, EOMI, PERRLA Ear exam: PRESENT: normal external ear exam Mouth exam: PRESENT: moist, tongue midline Neck exam: PRESENT: full ROM Respiratory exam: PRESENT: wheezes Cardiovascular exam: PRESENT: RRR, +S1, +S2 Pulses: PRESENT: normal dorsalis pedis pul, +2 pedal pulses bilateral Vascular exam: PRESENT: normal capillary refill GI/Abdominal exam: PRESENT: normal bowel sounds, soft Rectal exam: PRESENT: deferred Neurological exam: PRESENT: alert, awake, oriented to person, oriented to place, oriented to time, oriented to situation, CN II-XII grossly intact Psychiatric exam: PRESENT: appropriate affect, normal mood Skin exam: PRESENT: dry, intact, warm Results Laboratory Results: 06/30/18 13:15 06/29/18 04:51 06/28/18 08:48 Clean Catch Midstream Urine Culture - Final C.albicans/C.dubliniensis Mixed Urogenital [place] 06/27/18 06/27/18 06/27/18 16:52 16:52 16:52 Creatine Kinase 25 L CK-MB (CK-2) 1.29 Troponin I 0.014 NT-Pro-B Natriuret Pep 5380 H 06/27/18 06/27/18 06/28/18 23:00 23:00 05:04 Creatine Kinase 21 L < 20 L CK-MB (CK-2) 1.34 Troponin I 0.012 NT-Pro-B Natriuret Pep 06/28/18 06/28/18 06/28/18 05:04 11:25 11:25 Creatine Kinase 24 L CK-MB (CK-2) 0.72 0.95 Troponin I < 0.012 < 0.012 NT-Pro-B Natriuret Pep Impressions: Chest X-Ray 06/27/18 18:09 IMPRESSION: Cardiomegaly with pulmonary edema. Small pleural effusions. Cannot exclude airspace disease in either lower lobe. Assessment & Plan - Diagnosis (1) Acute hypercapnic respiratory failure Is this a current diagnosis for this admission?: Yes (2) Pulmonary hypertension Is this a current diagnosis for this admission?: Yes (3) Chronic obstructive pulmonary disease (COPD) Qualifiers: COPD type: unspecified COPD Qualified Code(s): J44.9 - Chronic obstructive pulmonary disease, unspecified Is this a current diagnosis for this admission?: Yes (4) Acute respiratory failure with hypoxia and hypercarbia Is this a current diagnosis for this admission?: Yes (5) COPD with acute exacerbation Is this a current diagnosis for this admission?: Yes Plan: Continue IV Solu-Medrol for 1 more day (6) Anemia Qualifiers: Anemia type: iron deficiency Iron deficiency anemia type: unspecified iron deficiency Qualified Code(s): D50.9 - Iron deficiency anemia, unspecified Is this a current diagnosis for this admission?: Yes Plan: Transfuse Venofer IV (7) Telangiectasia of colon Is this a current diagnosis for this admission?: Yes (8) Diverticulosis Is this a current diagnosis for this admission?: Yes (9) Hemorrhagic gastritis Qualifiers: Gastritis type: unspecified gastritis Chronicity: unspecified Qualified Code(s): K29.71 - Gastritis, unspecified, with bleeding Is this a current diagnosis for this admission?: Yes Plan: There are many potential etiology for the on deficiency anemia, she will be treated with p.o. PPI
[2018-07-01] MEDS: PANTOPRAZOLE SODIUM 40 MG TABLET.DR PO SCH (17:51)
[2018-07-01] MEDS ORDERED: IRON SUCROSE COMPLEX INJ/PF 100 MG/5 ML SDV IV ONE (18:00)
[2018-07-02] MEDS: PANTOPRAZOLE SODIUM 40 MG TABLET.DR PO SCH (05:42)
[2018-07-02] MEDS: METHYLPREDNISOLONE INJ 125 MG/2 ML SDV IV SCH ×2 (05:42→14:25)
[2018-07-02] MEDS: LEVOTHYROXINE SODIUM 0.1 MG TABLET PO SCH (05:42)
[2018-07-02] MEDS: LEVOTHYROXINE SODIUM 0.15 MG TABLET PO SCH (05:42)
[2018-07-02] MEDS: IPRATROPIUM/ALBUTEROL 0.5-2.5 MG/3 ML AMPUL NEB PRN ×3 (08:17→18:36)
[2018-07-02] MEDS: BUSPIRONE HCL 10 MG TABLET PO SCH (10:12)
[2018-07-02] MEDS: FUROSEMIDE INJ/PF 40 MG/4 ML SDV IV SCH (10:12)
[2018-07-02] MEDS: ENOXAPARIN SODIUM INJ 40 MG/0.4 ML DISP.SYRIN SUBCUT SCH (10:28)
--- NOTE | 2018-07-02 13:38 | OPERATIVE REPORT E ---
Operative Report NAME: GABINO ALEXANDER : 1945 AGE: 73Y DATE OF SURGERY: 07/01/2018 ROOM: 336 PREOPERATIVE DIAGNOSIS: ANEMIA, UNKNOWN CAUSE. POSTOPERATIVE DIAGNOSES: 1. ANEMIA. 2. HEMORRHAGIC GASTRITIS. 3. BILE REFLUX. 4. SMALL HIATAL HERNIA. 5. DIVERTICULOSIS SIGMOID AND LEFT COLON. 6. TELANGIECTASIA RIGHT COLON. OPERATION: 1. EGD with biopsy. 2. Colonoscopy to cecum. SURGEON: ИРИНА HINSON M.D. COMPLICATIONS: None. ANESTHESIA: IV sedation provided by Dr. Hinson, 15 mcg IV push of fentanyl and 2 mg IV push of Versed. FLUIDS: 200 INDICATION/FINDINGS: This is a 73-year-old female, admitted for anemia of unknown cause. Her stools are heme-positive. I was requested for EGD and colonoscopy. The procedures, benefits, and complications were discussed with the patient and she decided to proceed. PROCEDURE: The procedure was done in the endoscopy room. The patient was placed in left lateral decubitus and a mouthpiece was placed between her teeth, and the gastroscope was inserted through the mouth and advanced to the stomach and duodenum. Preparation was good. The duodenum was free of disease. Large amount of bile was noted into the stomach with bile reflux. The mucosa appeared somewhat edematous, and multiple areas of localized hemorrhage were noted throughout the stomach and fundus. No ulcerations, polyps, diverticulosis, tumors, or other lesions were noted. The instrument was retroflexed. A very small hiatal hernia was noted. The GE junction appeared to be free from disease. Random biopsies were taken in the stomach and sent for H. pylori and Pathology. The instrument was then slowly withdrawn through the esophagus, which appeared to be normal, and removed from the patient's mouth without difficulty. A colonoscopy was performed by inserting the scope through the rectum through the segments of the colon to the cecum. Preparation was good. No masses, polyps, strictures, or mucosal changes were noted. Diffuse telangiectasias were noted in the right and proximal transverse colon, and several scattered diverticula were noted in the sigmoid and left colon; however, no evidence of active bleeding or recent bleeding was noted. the scope could not be retroflexed due to patient lack of rectal tone; however, no lesions were seen in the rectum. The scope was removed without difficulty from the patient's anus. She tolerated the procedure well and was transferred to the recovery room in satisfactory condition. DICTATING PHYSICIAN: ИРИНА HINSON M.D. [id number] PHY#: [id number] ID: [id number] JOB#: [id number] ACCT: [id number] cc:ИРИНА HINSON M.D. > MTDD
--- NOTE | 2018-07-02 20:28 | PDOC DISCHARGE SUMMARY ---
General - Admit/Disc Date/PCP Admission Date/Primary Care Provider: 06/27/18 19:53 RONAL MAHNAZ Discharge Date: 07/02/18 - Discharge Diagnosis (1) Acute hypercapnic respiratory failure Is this a current diagnosis for this admission?: Yes (2) Pulmonary hypertension Is this a current diagnosis for this admission?: Yes (3) Chronic obstructive pulmonary disease (COPD) Is this a current diagnosis for this admission?: Yes (4) Acute respiratory failure with hypoxia and hypercarbia Is this a current diagnosis for this admission?: Yes (5) COPD with acute exacerbation Is this a current diagnosis for this admission?: Yes (6) Telangiectasia of colon Is this a current diagnosis for this admission?: Yes (7) Diverticulosis Is this a current diagnosis for this admission?: Yes (8) Hemorrhagic gastritis Is this a current diagnosis for this admission?: Yes (9) Iron deficiency anemia Is this a current diagnosis for this admission?: Yes - Additional Information Resuscitation Status: Full Code Discharge Diet: Diabetic Discharge Activity: Activity As Tolerated, Balance Activity w/Rest, Weigh Daily Prescriptions: Linagliptin [Tradjenta] 5 mg PO DAILY #90 tablet Pantoprazole Sodium [Protonix [address] Tablet] 40 mg PO Q6AM #90 tablet.dr Prednisone [Deltasone 20 mg Tablet] 40 mg PO DAILY #5 tablet Home Medications: Buspirone HCl [Buspar 10 mg Tablet] 10 mg PO DAILY tablet 07/02/18 Dextrose 50%-Water [Dextrose Inj 50% Syringe (25 gm/50 ml)] 25 gm IV PRN PRN disp.syrin 07/02/18 Dextrose [Glutose 40% Gel 15 gm Tube] 15 gm PO PRN PRN tube 07/02/18 Dextrose [Glutose 40% Gel 15 gm Tube] 30 gm PO PRN PRN tube 07/02/18 Enoxaparin Sodium [Lovenox Inj 40 mg/0.4 ml Disp.syrin] 40 mg SUBCUT DAILY disp.syrin 07/02/18 Furosemide [Lasix Inj/Pf 40 mg/4 ml Sdv] 40 mg IV DAILY vial 07/02/18 Glucagon,Human Recombinant [Glucagen Inj 1 mg Vial] 1 mg SUBCUT PRN PRN vial 07/02/18 Ipratropium/Albuterol Sulfate [Duoneb 3 ml Ampul] 3 ml NEB RTQ3HP PRN vial.neb 07/02/18 Levothyroxine Sodium [Synthroid 0.1 mg Tablet] 0.1 mg PO Q6AM tablet 07/02/18 Levothyroxine Sodium [Synthroid 0.15 mg Tablet] 0.15 mg PO Q6AM tablet 07/02/18 Linagliptin [Tradjenta] 5 mg PO DAILY #90 tablet 07/02/18 Pantoprazole Sodium [Protonix [address] Tablet] 40 mg PO Q6AM #90 tablet.dr 07/02/18 Prednisone [Deltasone 20 mg Tablet] 40 mg PO DAILY #5 tablet 07/02/18 History of Present Illness History of Present Illness: GABINO ALEXANDER is a 73 year old female, She has a history of severe pulmonary hypertension, chronic obstructive pulmonary disease, she came to emergency room for evaluation of respiratory distress, she complained of shortness of breath, cough, she stated that the shortness of breath started last week, she called EMS today, when EMS arrived the oxygen saturation was in the 70s, she was treated on the field with bronchodilators, Solu-Medrol. In the emergency room when she arrived she was evaluated the chest x-ray that was done was suggestive of congestive heart failure, the BNP was elevated, the arterial blood gas demonstrated Respiratory acidosis with hypoxemia, she required a noninvasive positive pressure ventilation with BiPAP. She continues to smoke cigarettePatient was initially uncooperative in the emergency room, she refused most of the blood work that was recommended she also initially refused the noninvasive positive pressure ventilator but ultimately she consented to the use of this device Hospital Course Hospital Course: Patient was admitted for the management of acute COPD exacerbation, iron deficiency anemia, she was treated with intravenous Solu-Medrol, bronchodilators, she has iron deficiency anemia, she did not require blood transfusion she was seen by surgicalist, she underwent colonoscopy and EGD she was found to have hemorrhagic gastritis,telangiectasis.She is noncompliant with her medical care, she does not follow-up in the office on a regular basis, she rather come to the emergency room when she is acutely ill. Physical Exam Vital Signs: Temp Pulse Resp BP Pulse Ox 99.1 F 59 L 18 145/45 H 92 07/02/18 15:57 07/02/18 18:36 07/02/18 18:36 07/02/18 15:57 07/02/18 18:36 Intake & Output 07/01/18 07/02/18 07/03/18 06:59 06:59 06:59 Intake Total 968 849 4784 Output Total 6910 3996 2150 [facility] -1137 -660 -1011 Weight 78 kg 73.6 kg General appearance: PRESENT: no acute distress Head exam: PRESENT: atraumatic, normocephalic Eye exam: PRESENT: PERRLA Neck exam: PRESENT: full ROM Respiratory exam: PRESENT: clear to auscultation oh Cardiovascular exam: PRESENT: RRR, +S1, +S2 Pulses: PRESENT: normal dorsalis pedis pul, +2 pedal pulses bilateral Vascular exam: PRESENT: normal capillary refill GI/Abdominal exam: PRESENT: normal bowel sounds, soft Rectal exam: PRESENT: deferred Neurological exam: PRESENT: alert, awake, oriented to person, oriented to place, oriented to time, oriented to situation, CN II-XII grossly intact Psychiatric exam: PRESENT: appropriate affect, normal mood Skin exam: PRESENT: dry, intact, warm Results Laboratory Results: 06/30/18 13:15 06/29/18 04:51 06/27/18 06/27/18 06/27/18 16:52 16:52 16:52 Creatine Kinase 25 L CK-MB (CK-2) 1.29 Troponin I 0.014 NT-Pro-B Natriuret Pep 5380 H 06/27/18 06/27/18 06/28/18 23:00 23:00 05:04 Creatine Kinase 21 L < 20 L CK-MB (CK-2) 1.34 Troponin I 0.012 NT-Pro-B Natriuret Pep 06/28/18 06/28/18 06/28/18 05:04 11:25 11:25 Creatine Kinase 24 L CK-MB (CK-2) 0.72 0.95 Troponin I < 0.012 < 0.012 NT-Pro-B Natriuret Pep Impressions: Chest X-Ray 06/27/18 18:09 IMPRESSION: Cardiomegaly with pulmonary edema. Small pleural effusions. Cannot exclude airspace disease in either lower lobe. Qualifiers - * PATIENT BEING DISCHARGED WITH ANY OF THE FOLLOWING DIAGNOSIS: No Acute Heart Failure Is this a Heart Failure Patient?: No
[2018-07-03] MEDS: PANTOPRAZOLE SODIUM 40 MG TABLET.DR PO SCH (05:10)
[2018-07-03] MEDS: LEVOTHYROXINE SODIUM 0.1 MG TABLET PO SCH (05:10)
[2018-07-03] MEDS: LEVOTHYROXINE SODIUM 0.15 MG TABLET PO SCH (05:10)
[2018-07-03] MEDS: FUROSEMIDE INJ/PF 40 MG/4 ML SDV IV SCH (09:44)
[2018-07-03] MEDS: ENOXAPARIN SODIUM INJ 40 MG/0.4 ML DISP.SYRIN SUBCUT SCH ×2 (09:45→09:58)
[2018-07-03] MEDS: BUSPIRONE HCL 10 MG TABLET PO SCH (09:45)
[2018-07-03] MEDS: IPRATROPIUM/ALBUTEROL 0.5-2.5 MG/3 ML AMPUL NEB PRN (09:48)
[2018-07-03] MEDS ORDERED: PREDNISONE 20 MG TABLET PO SCH (10:00)
[2018-07-03 11:01] VITALS: BP 141/56
== END 2018-07-03 18:00 | disposition home or self-care (01) | DRG 189 ==
LOC: ER 17:02 → EH 19:53 → 3S 22:09
PROVIDERS: ADMIT Internal Medicine; ATTEND Internal Medicine
PROC: 0DD68ZX Extraction of Stomach, Via Natural or Artificial Opening Endoscopic, Diagnostic (ICD-10-PCS; principal; 2018-07-01 13:30)
PROC: 0DJD8ZZ Inspection of Lower Intestinal Tract, Via Natural or Artificial Opening Endoscopic (ICD-10-PCS; 2018-07-01 13:30)
DX: J96.21 Acute and chronic respiratory failure with hypoxia (principal); K29.71 Gastritis, unspecified, with bleeding; E87.2 Acidosis; J44.1 Chronic obstructive pulmonary disease with (acute) exacerbation; J96.22 Acute and chronic respiratory failure with hypercapnia; D64.9 Anemia, unspecified; K55.20 Angiodysplasia of colon without hemorrhage; K57.30 Diverticulosis of large intestine without perforation or abscess without bleeding; K44.9 Diaphragmatic hernia without obstruction or gangrene; K21.9 Gastro-esophageal reflux disease without esophagitis; I50.9 Heart failure, unspecified; I10 Essential (primary) hypertension; I73.9 Peripheral vascular disease, unspecified; I27.20 Pulmonary hypertension, unspecified; E03.9 Hypothyroidism, unspecified; E11.8 Type 2 diabetes mellitus with unspecified complications; F17.210 Nicotine dependence, cigarettes, uncomplicated; Z79.84 Long term (current) use of oral hypoglycemic drugs; Z79.52 Long term (current) use of systemic steroids; Z79.899 Other long term (current) drug therapy; Z91.14 Patient's other noncompliance with medication regimen
CPT/HCPCS: 36415; 36600; 43239; 45378; 71045; 80048; 80053; 80076; 81001; 82550; 82553; 82607; 82728; 82746; 82803; 83010; 83036; 83540; 83550; 83605; 83615; 83735; 83880; 84439; 84443; 84484; 85025; 85045; 85610; 85730; 86850; 86900; 86901; 87040; 87086; 88305; 88342; 93005; 93010; 93306; 94660; 99291; J0171; J1200; J1610; J1650; J1756; J1940; J2250; J2310; J2405; J2930; J3010; J3490; J7512; J7620

== ENCOUNTER 2018-08-01 21:38 | Emergency (ER) | payer MEDICARE ==
--- NOTE | 2018-08-01 22:24 | ER Document Report ---
ED Medical Screen (RME) - General Chief Complaint: Shortness Of Breath Stated Complaint: SWELLING AND TROUBLE BREATHING Time Seen by Provider: 08/01/18 22:21 Primary Care Provider: RONAL JOYA MD [Primary Care Provider] - Follow up as needed Notes: 73-year-old female with multiple comorbid medical to conditions coming in today with facial swelling, shortness of breath. She has history of hypothyroidism and says that she did not tell her daughter that she had run out of her Synthroid a long time ago and has not been taking it. Unfortunately also she has a history of multiple cardiac risk factors and is treated for COPD and congestive heart failure. I have treated and performed a rapid initial assessment of this patient. A comprehensive ED assessment and evaluation of the patient, analysis of test results and completion of medical decision making process will be conducted by additional ED providers. PHYSICAL EXAMINATION: GENERAL: Chronically ill-appearing LUNGS: Diminished breath sounds bilaterally HEART: Regular rate and rhythm without murmurs, rubs, gallops. ABDOMEN: nontender Extremities: Minimal peripheral edema NEUROLOGICAL: Normal speech, normal gait. PSYCH: Normal mood, normal affect. TRAVEL OUTSIDE OF THE [place] IN LAST 30 DAYS: No - Related Data Allergies/Adverse Reactions: melon Allergy (Unknown, Verified 07/02/18 19:17) allopurinol [From Zyloprim] Allergy (Verified 03/06/18 03:47) amitriptyline HCl [From Elavil] Allergy (Verified 03/06/18 03:47) belladonna alkaloids [From Bellergal-S] Allergy (Verified 03/06/18 03:47) cefuroxime axetil [From Ceftin] Allergy (Verified 03/06/18 03:47) celecoxib [From Celebrex] Allergy (Verified 03/06/18 03:47) cimetidine [From Tagamet] Allergy (Verified 03/06/18 03:47) codeine [Codeine] Allergy (Verified 03/06/18 03:47) doxepin HCl [From S[place]quan] Allergy (Verified 03/06/18 03:47) ergotamine tartrate [From Bellergal-S] Allergy (Verified 03/06/18 03:47) fluoxetine HCl [From Prozac] Allergy (Verified 03/06/18 03:47) hydroxyzine HCl [From Atarax] Allergy (Verified 03/06/18 03:47) indigotindisulfonic acid [From [place]igo [place]] Allergy (Verified 03/06/18 03:47) malathion Allergy (Verified 03/06/18 03:47) mefenamic acid Allergy (Verified 03/06/18 03:47) Milk Containing Products Allergy (Verified 03/06/18 03:47) naproxen sodium [From Anaprox] Allergy (Verified 03/06/18 03:47) nefazodone HCl [From Serzone] Allergy (Verified 03/06/18 03:47) phenylephrine tannate [From Decons[place] CT] Allergy (Verified 03/06/18 03:47) pyrilamine tannate [From Deconsal CT] Allergy (Verified 03/06/18 03:47) tolterodine tartrate [From Detrol] Allergy (Verified 03/06/18 03:47) trazodone HCl [From Desyrel] Allergy (Verified 03/06/18 03:47) morphine Adverse Reaction (Verified 04/11/18 21:58) renuzil Allergy (Uncoded 01/24/18 17:48) surgical steel Allergy (Uncoded 01/24/18 17:48) Past Medical History - Past Medical History Cardiac Medical History: Reports: Hx Congestive Heart Failure, Hx Hypertension, Hx Peripheral Vascular Disease Pulmonary Medical History: Reports: Hx COPD, Hx Pneumonia Neurological Medical History: Denies: Hx Seizures Endocrine Medical History: Reports: Hx Diabetes Mellitus Type 2, Hx Hypothyroidism Renal/ Medical History: Denies: Hx Peritoneal Dialysis GI Medical History: Reports: Hx Gastroesophageal Reflux Disease. Denies: Hx Crohn's Disease, Hx Ulcerative Colitis Musculoskeltal Medical History: Reports Hx Arthritis, Denies Hx Gout Skin Medical History: Denies Hx Eczema, Denies Hx Psoriasis Psychiatric Medical History: Reports: Hx Depression Denies: Hx Bipolar Disorder, Hx Personality Disorder, Hx Schizoaffective Disorder Traumatic Medical History: Denies: Hx Traumatic Brain Injury Past Surgical History: Reports: Hx Cholecystectomy, Hx Orthopedic Surgery - L Wr ist. Denies: Hx Hysterectomy - Immunizations Immunizations up to date: No Hx Diphtheria, Pertussis, Tetanus Vaccination: No History of Influenza Vaccine for 11/2016 - 04/2017 Season: No Physical Exam - Vital signs Vitals: Temp Pulse Resp BP Pulse Ox 97.6 F 53 L 20 133/50 H 96 08/01/18 22:00 08/01/18 22:00 08/01/18 22:00 08/01/18 22:00 08/01/18 22:00 Course - Vital Signs Vital signs: Temp Pulse Resp BP Pulse Ox 97.6 F 53 L 20 133/50 H 96 08/01/18 22:00 08/01/18 22:00 08/01/18 22:00 08/01/18 22:00 08/01/18 22:00 Doctor's Discharge - Discharge Referrals: RONAL JOYA MD [Primary Care Provider] - Follow up as needed
--- NOTE | 2018-08-01 22:56 | RADIOLOGY REPORT (SQ) ---
EXAM DESCRIPTION: XR CHEST 1 VIEW COMPLETED DATE/TME: 08/01/2018 22:21 CLINICAL HISTORY: 73 years Female, sob COMPARISON: None. NUMBER OF VIEWS/TECHNIQUE: 1/AP FINDINGS: Mild mixed interstitial and airspace opacity. Mildly enlarged cardiac silhouette. Adequate lung volume, , and intact bony thorax. IMPRESSION: Mild CHF pattern.Differential diagnosis includes pulmonary edema, multifocal pneumonia, and chronic interstitial lung disease.
[2018-08-01 23:11] LABS: ABSOLUTE BASOPHILS # (AUTO) 0.1 10^3/uL (0.0-0.2); ABSOLUTE LYMPHOCYTES (AUTO) 2.2 10^3/uL (0.5-4.7); ABSOLUTE MONOCYTES (AUTO) 0.8 10^3/uL (0.1-1.4); ABSOLUTE NEUT (AUTO) 4.2 10^3/uL (1.7-8.2); EOSINOPHILS % (AUTO) 0.4 % (0-6); HEMATOCRIT 29.4 % (36.0-47.0); LYMPHOCYTES % (AUTO) 30.1 % (13-45); MEAN CORPUSCULAR HEMOGLOBIN 23.2 pg (27.0-33.4); MEAN CORPUSCULAR HGB CONC 30.6 g/dL (32.0-36.0); MEAN CORPUSCULAR VOLUME 76 fl (80-97); MONOCYTES % (AUTO) 11.6 % (3-13); PLATELET COUNT 166 10^3/uL (150-450); RED BLOOD COUNT 3.87 10^6/uL (3.72-5.28); RED CELL DISTRIBUTION WIDTH 19.8 % (11.5-14.0); SEGMENTED NEUTROPHILS % (AUTO) 56.9 % (42-78); TOTAL CELLS COUNTED % (AUTO) 100 %; WHITE BLOOD COUNT 7.3 10^3/uL (4.0-10.5)
[2018-08-01 23:19] LABS: ALANINE AMINOTRANSFERASE 17 U/L (9-52); ALKALINE PHOSPHATASE 80 U/L (38-126); ANION GAP 7 (5-19); ASPARTATE AMINO TRANSFERASE 19 U/L (14-36); BILIRUBIN,DIRECT 0.2 mg/dL (0.0-0.4); BILIRUBIN,TOTAL 0.2 mg/dL (0.2-1.3); BLOOD UREA NITROGEN 14 mg/dL (7-20); CALCIUM 9.2 mg/dL (8.4-10.2); CARBON DIOXIDE 35 mmol/L (22-30); CHLORIDE 94 mmol/L (98-107); GLUCOSE 156 mg/dL (75-110); POTASSIUM 3.7 mmol/L (3.6-5.0); SODIUM 135.6 mmol/L (137-145); TOTAL PROTEIN 6.8 g/dL (6.3-8.2)
[2018-08-01 23:31] LABS: NT PRO BNP 376 pg/mL (5-900)
[2018-08-01 23:36] LABS: FREE T4 (FREE THYROXINE) 0.67 ng/dL (0.78-2.19)
[2018-08-01 23:47] LABS: TROPONIN I < 0.012 ng/mL
[2018-08-01 23:50] LABS: THYROID STIMULATING HORMONE 28.2 uIU/mL (0.47-4.68)
[2018-08-02] MEDS ORDERED: ACETAMINOPHEN 325 MG TABLET PO ONE (01:27)
[2018-08-02] MEDS ORDERED: IPRATROPIUM/ALBUTEROL 0.5-2.5 MG/3 ML AMPUL NEB ONE (01:55)
[2018-08-02] MEDS ORDERED: LEVOTHYROXINE SODIUM 0.15 MG TABLET PO ONE (01:55)
[2018-08-02] MEDS ORDERED: METHYLPREDNISOLONE INJ 125 MG/2 ML SDV IV ONE (01:56)
[2018-08-02] MEDS ORDERED: LEVOTHYROXINE SODIUM 0.15 MG TABLET ONE (02:41)
--- NOTE | 2018-08-02 02:43 | ER Document Report ---
Entered by RETA LOBATO SCRIBE 08/02/18 0202 Acting as scribe for:ADELA DURAN MD ED General - General Chief Complaint: Shortness Of Breath Stated Complaint: SWELLING AND TROUBLE BREATHING Time Seen by Provider: 08/01/18 22:21 Primary Care Provider: RONAL JOYA MD [Primary Care Provider] - Follow up as needed Mode of Arrival: Ambulatory Information source: Patient Notes: Patient is a 73 year old female with CHF, COPD (3.5 L of oxygen at home) , pulmonary hypertension, COPD, hypothyroidism presents to the emergency departmen t complaining of facial swelling and shortness of breath. Patient states she ran out of her Synthroid in December and has not alerted anyone to this. She attributes her symptoms to being without her medication. Patient was admitted to this hospital on 06/27 for acute chronic respiratory failure, CHF and a GI bleed. Patient states while she was in the hospital, she did not make aware to Dr. Mae she was out of her Synthroid. TRAVEL OUTSIDE OF THE [place] IN LAST 30 DAYS: No - Related Data Allergies/Adverse Reactions: melon Allergy (Unknown, Verified 07/02/18 19:17) allopurinol [From Zyloprim] Allergy (Verified 03/06/18 03:47) amitriptyline HCl [From Elavil] Allergy (Verified 03/06/18 03:47) belladonna alkaloids [From Bellergal-S] Allergy (Verified 03/06/18 03:47) cefuroxime axetil [From Ceftin] Allergy (Verified 03/06/18 03:47) celecoxib [From Celebrex] Allergy (Verified 03/06/18 03:47) cimetidine [From Tagamet] Allergy (Verified 03/06/18 03:47) codeine [Codeine] Allergy (Verified 03/06/18 03:47) doxepin HCl [From Sinequan] Allergy (Verified 03/06/18 03:47) ergotamine tartrate [From Bellergal-S] Allergy (Verified 03/06/18 03:47) fluoxetine HCl [From Prozac] Allergy (Verified 03/06/18 03:47) hydroxyzine HCl [From Atarax] Allergy (Verified 03/06/18 03:47) indigotindisulfonic acid [From [place]] Allergy (Verified 03/06/18 03:47) malathion Allergy (Verified 03/06/18 03:47) mefenamic acid Allergy (Verified 03/06/18 03:47) Milk Containing Products Allergy (Verified 03/06/18 03:47) naproxen sodium [From Anaprox] Allergy (Verified 03/06/18 03:47) nefazodone HCl [From Serzone] Allergy (Verified 03/06/18 03:47) phenylephrine tannate [From Deconsal CT] Allergy (Verified 03/06/18 03:47) pyrilamine tannate [From Deconsal CT] Allergy (Verified 03/06/18 03:47) tolterodine tartrate [From Detrol] Allergy (Verified 03/06/18 03:47) trazodone HCl [From Desyrel] Allergy (Verified 03/06/18 03:47) morphine Adverse Reaction (Verified 04/11/18 21:58) renuzil Allergy (Uncoded 01/24/18 17:48) surgical steel Allergy (Uncoded 01/24/18 17:48) Past Medical History - General Information source: Patient - Social History Smoking Status: Current Every Day Smoker Cigarette use (# per day): Yes Chew tobacco use (# tins/day): No Frequency of alcohol use: None Drug Abuse: None Family History: CAD, DM, Hypertension Patient has suicidal ideation: No Patient has homicidal ideation: No - Past Medical History Cardiac Medical History: Reports: Hx Congestive Heart Failure, Hx Hypertension, Hx Peripheral Vascular Disease Pulmonary Medical History: Reports: Hx COPD, Hx Pneumonia Endocrine Medical History: Reports: Hx Diabetes Mellitus Type 2, Hx Hypothyroidism GI Medical History: Reports: Hx Gastroesophageal Reflux Disease Musculoskeletal Medical History: Reports Hx Arthritis Psychiatric Medical History: Reports: Hx Depression Past Surgical History: Reports: Hx Cholecystectomy, Hx Orthopedic Surgery - L Wrist - Immunizations Immunizations up to date: No Hx Diphtheria, Pertussis, Tetanus Vaccination: No Review of Systems - Review of Systems Constitutional: No symptoms reported EENT: No symptoms reported Cardiovascular: No symptoms reported Respiratory: See HPI, Short of breath Gastrointestinal: No symptoms reported Genitourinary: No symptoms reported Female Genitourinary: No symptoms reported Musculoskeletal: See HPI Skin: See HPI Hematologic/Lymphatic: No symptoms reported Neurological/Psychological: No symptoms reported -: Yes All other systems reviewed and negative Physical Exam - Vital signs Vitals: Temp Pulse Resp BP Pulse Ox 97.6 F 53 L 20 133/50 H 96 08/01/18 22:00 08/01/18 22:00 08/01/18 22:00 08/01/18 22:00 08/01/18 22:00 - Notes Notes: GENERAL: Alert, interacts well. No acute distress. HEAD: Normocephalic, atraumatic. EYES: Pupils equal, round, and reactive to light. Extraocular movements intact. ENT: Oral mucosa moist, tongue midline. NECK: Full range of motion. Supple. Trachea midline. LUNGS: Expiratory wheezes. 97% oxygen saturation on 2L of oxygen, not hypoxic, good waveform, on manager cardiac cath per my interpretation. No respiratory distress. HEART: Regular rate and rhythm. 62 bpm, good waveform, on manager cardiac cath per my interpretation. No murmurs, gallops, or rubs. ABDOMEN: Soft, non-tender. Non-distended. Resonant to percussion. Bowel sounds present in all 4 quadrants. No guarding, rigidity, or rebound. EXTREMITIES: Moves all 4 extremities spontaneously. Minimal peripheral edema in the BLE. Radial and dorsalis pedis pulses 2/4 bilaterally. No cyanosis. NEUROLOGICAL: Alert and oriented x3. Normal speech. PSYCH: Normal affect, normal mood. SKIN: Warm, dry, normal turgor. No rashes or lesions noted. Course - Re-evaluation Re-evalutation: 08/02/18 02:48 Chest x-ray is read as mild CHF pattern with a differential diagnosis of pulmonary edema, multifocal pneumonia, and chronic interstitial lung disease. When I compared it to previous chest x-rays that looked a little worse, the patient had a markedly elevated BNP on those episodes. Today the BNP is quite low at 376. The patient is normally on oxygen 3.5 L continuously at home. Right now she is only on 2 L nasal cannula and has a pulse ox of 97% without tachypnea. 08/02/18 03:55 Patient reports that her breathing did feel much better after the nebulizer t reatment. - Vital Signs Vital signs: Temp Pulse Resp BP Pulse Ox 97.6 F 53 L 20 148/54 H 94 08/01/18 22:00 08/01/18 22:00 08/02/18 03:58 08/02/18 03:58 08/02/18 03:58 - Laboratory Result Diagrams: 08/01/18 22:50 08/01/18 22:50 Laboratory results interpreted by me: 08/01/18 08/01/18 08/01/18 22:50 22:50 22:50 Hgb 9.0 L Hct 29.4 L MCV 76 L MCH 23.2 L MCHC 30.6 L RDW 19.8 H Sodium 135.6 L Chloride 94 L Carbon Dioxide 35 H Glucose 156 H TSH 28.20 H Free T4 0.67 L Urine Protein 08/02/18 02:59 Hgb Hct MCV MCH MCHC RDW Sodium Chloride Carbon Dioxide Glucose TSH Free T4 Urine Protein >=500 H - Diagnostic Test Radiology reviewed: Image reviewed, Reports reviewed - Chest x-ray is read as mild CHF pattern. Differential diagnosis to include pulmonary edema, multifocal pneumonia, and chronic interstitial lung disease. This film was not compared to any of the multiple prior chest x-rays done. - EKG Interpretation by Me EKG shows normal: Sinus rhythm, [place], Intervals, QRS Complexes. abnormal: ST-T Waves - Borderline anterior T abnormalities Rate: Normal - 53 Rhythm: NSR, APC's Discharge - Discharge Clinical Impression: History of medication noncompliance COPD (chronic obstructive pulmonary disease) Qualifiers: COPD type: unspecified COPD Qualified Code(s): J44.9 - Chronic obstructive pulmonary disease, unspecified Hypothyroid Qualifiers: Hypothyroidism type: unspecified Qualified Code(s): E03.9 - Hypothyroidism, unspecified Condition: Stable Disposition: HOME, SELF-CARE Additional Instructions: Some of your symptoms may be due to your low thyroid hormone levels. Get the Synthroid prescription filled and start taking it on a daily basis. Continue your regular medications, and use your nebulizer if you are feeling short of breath like you were tonight. Follow-up with your primary care provider in the next few days for recheck. RETURN TO THE EMERGENCY ROOM IF ANY NEW OR WORSENING SYMPTOMS. Prescriptions: Levothyroxine Sodium [Synthroid 0.15 mg Tablet] 0.15 mg PO DAILY #30 tablet Referrals: JEN MAE MD [ACTIVE STAFF] - Follow up in 3-5 days Scribe Attestation: 06/21/19 02:44 I personally performed the services described in the documentation, reviewed and edited the documentation which was dictated to the scribe in my presence, and it accurately records my words and actions. I personally performed the services described in the documentation, reviewed and edited the documentation which was dictated to the scribe in my presence, and it accurately records my words and actions.
[2018-08-02 03:37] LABS: APPEARANCE,URINE CLOUDY; BILIRUBIN,URINE NEGATIVE (NEGATIVE); COLOR,URINE YELLOW; GLUCOSE, URINE NEGATIVE (NEGATIVE); KETONES,URINE NEGATIVE (NEGATIVE); LEUKOCYTE ESTERASE,URINE NEGATIVE (NEGATIVE); NITRITE,URINE NEGATIVE (NEGATIVE); PROTEIN,URINE >=500 mg/dL (NEGATIVE); URINE SPECIFIC GRAVITY 1.017; UROBILINOGEN,URINE NEGATIVE mg/dL (<2.0)
[2018-08-02 05:12] VITALS: BP 152/56
--- NOTE | 2018-08-02 19:17 | EKG REPORT ---
SEVERITY:- BORDERLINE ECG - SINUS RHYTHM VENTRICULAR PREMATURE COMPLEX BORDERLINE T ABNORMALITIES, ANTERIOR LEADS : Confirmed by: Nidhi Frank MD 02-Aug-2018 19:17:00
== END 2018-08-02 05:12 | disposition home or self-care (01) ==
LOC: ER 21:38
DX: J44.9 Chronic obstructive pulmonary disease, unspecified (principal); E03.9 Hypothyroidism, unspecified; R06.02 Shortness of breath; R06.00 Dyspnea, unspecified; F17.210 Nicotine dependence, cigarettes, uncomplicated; I11.0 Hypertensive heart disease with heart failure; I50.9 Heart failure, unspecified; Z99.2 Dependence on renal dialysis; Z88.6 Allergy status to analgesic agent; Z90.49 Acquired absence of other specified parts of digestive tract
CPT/HCPCS: 93005; 94640; 99285; 96374; 36415; 84439; 84443; 85025; 80053; 81001; 84484; 83880; 71045; 93010; A9270 ×3; J2930; J7620

== ENCOUNTER 2018-08-13 15:30 | Inpatient (IN) | payer MEDICARE ==
[2018-08-13] MEDS: METHYLPREDNISOLONE INJ 125 MG/2 ML SDV IV SCH ×2 (18:42→23:51)
[2018-08-13 18:54] LABS: ABSOLUTE BASOPHILS # (AUTO) 0.1 10^3/uL (0.0-0.2); ABSOLUTE EOSINOPHILS # (AUTO) 0.1 10^3/uL (0.0-0.6); ABSOLUTE LYMPHOCYTES (AUTO) 1.3 10^3/uL (0.5-4.7); ABSOLUTE MONOCYTES (AUTO) 0.6 10^3/uL (0.1-1.4); ABSOLUTE NEUT (AUTO) 6.5 10^3/uL (1.7-8.2); BASOPHILS % (AUTO) 0.7 % (0-2); HEMATOCRIT 30.2 % (36.0-47.0); LYMPHOCYTES % (AUTO) 15.7 % (13-45); MEAN CORPUSCULAR HEMOGLOBIN 23.2 pg (27.0-33.4); MEAN CORPUSCULAR HGB CONC 29.8 g/dL (32.0-36.0); MEAN CORPUSCULAR VOLUME 78 fl (80-97); MONOCYTES % (AUTO) 6.7 % (3-13); PLATELET COUNT 155 10^3/uL (150-450); RED BLOOD COUNT 3.88 10^6/uL (3.72-5.28); RED CELL DISTRIBUTION WIDTH 20.6 % (11.5-14.0); SEGMENTED NEUTROPHILS % (AUTO) 75.9 % (42-78); TOTAL CELLS COUNTED % (AUTO) 100 %; WHITE BLOOD COUNT 8.5 10^3/uL (4.0-10.5)
[2018-08-13 19:15] LABS: ALANINE AMINOTRANSFERASE 19 U/L (9-52); ALBUMIN 3.9 g/dL (3.5-5.0); ALKALINE PHOSPHATASE 63 U/L (38-126); ANION GAP 7 (5-19); ASPARTATE AMINO TRANSFERASE 19 U/L (14-36); BILIRUBIN,DIRECT 0.2 mg/dL (0.0-0.4); BILIRUBIN,TOTAL 0.2 mg/dL (0.2-1.3); BLOOD UREA NITROGEN 15 mg/dL (7-20); CALCIUM 8.9 mg/dL (8.4-10.2); CARBON DIOXIDE 34 mmol/L (22-30); CHLORIDE 100 mmol/L (98-107); GLUCOSE 160 mg/dL (75-110); POTASSIUM 4.6 mmol/L (3.6-5.0); SODIUM 140.6 mmol/L (137-145); TOTAL PROTEIN 6.9 g/dL (6.3-8.2)
--- NOTE | 2018-08-13 19:30 | RADIOLOGY REPORT (SQ) ---
EXAM DESCRIPTION: CHEST SINGLE VIEW COMPLETED DATE/TIME: 08/13/2018 7:04 pm REASON FOR STUDY: respiratory failure- shortness of breath COMPARISON: 08/01/2018 EXAM PARAMETERS: NUMBER OF VIEWS: One view. TECHNIQUE: Single frontal radiographic view of the chest acquired. RADIATION DOSE: NA LIMITATIONS: None. FINDINGS: LUNGS AND PLEURA: Cannot exclude mild pulmonary edema. Small left pleural effusion. MEDIASTINUM AND HILAR STRUCTURES: No masses. Contour normal. HEART AND VASCULAR STRUCTURES: Cardiomegaly. BONES: No acute findings. HARDWARE: None in the chest. OTHER: No other significant finding. IMPRESSION: Cardiomegaly with small left pleural effusion and mild pulmonary edema. TECHNICAL DOCUMENTATION: JOB ID: [id number] [employer]- All Rights Reserved Reading location - IP/workstation name: [email or web address]
[2018-08-13 19:33] LABS: FREE T4 (FREE THYROXINE) 0.57 ng/dL (0.78-2.19)
[2018-08-13 19:47] LABS: THYROID STIMULATING HORMONE 22.3 uIU/mL (0.47-4.68)
[2018-08-13] MEDS ORDERED: IPRATROPIUM/ALBUTEROL 0.5-2.5 MG/3 ML AMPUL NEB PRN ×2 (19:56→20:00)
--- NOTE | 2018-08-13 20:02 | PDOC H&P ---
History of Present Illness Admission Date/PCP: 08/13/18 16:43 JEN MAE MD History of Present Illness: GABINO ALEXANDER is a 73 year old female, Patient is extremely noncompliant, she has chronic respiratory failure due to COPD she has severe hypothyroidism, she is supposed to be on replacement therapy with Synthroid, she came to the office for evaluation of respiratory symptoms, shortness of breath, wheezing and she also have on examination severe myxedema. Patient has not been taking all recommended medications including Synthroid, she is on megadoses of levothyroxine. She has only Medicare she does not have secondary insurance, she does not have Medicare part D for prescription coverage, she stated that she cannot afford the medications that she needed including bronchodilators, levothyroxine, in the office today she was extremely edematous with angioedema of both eyelids, with pretibial edema all consistent with myxedema secondary to severe hypothyroidism. She was admitted directly from the office to the hospital, the pulse oximetry demonstrated hypoxemia on room air, the arterial blood gas that was done also showed respiratory acidosis. Past Medical History Cardiac Medical History: Reports: Hypertension, Peripheral Vascular Disease Pulmonary Medical History: Reports: Chronic Obstructive Pulmonary Disease (COPD), Pneumonia Endocrine Medical History: Reports: Diabetes Mellitus Type 2, Hypothyroidism GI Medical History: Reports: Gastroesophageal Reflux Disease Musculoskeltal Medical History: Reports: Arthritis Psychiatric Medical History: Reports: Depression Past Surgical History Past Surgical History: Reports: Cholecystectomy, Orthopedic Surgery - L Wrist Social History Smoking Status: Current Some Day Smoker Frequency of Alcohol Use: None Hx Recreational Drug Use: No Drugs: None Hx Prescription Drug Abuse: No Family History Family History: CAD, DM, Hypertension Parental Family History Reviewed: Yes Children Family History Reviewed: Yes Sibling(s) Family History Reviewed.: Yes Medication/Allergy Home Medications: Buspirone HCl [Buspar 10 mg Tablet] 10 mg PO Q12 08/13/18 Ibuprofen [Ibu-200] 600 mg PO Q4HP PRN 08/13/18 Ipratropium/Albuterol Sulfate [Duoneb 3 ml Ampul] 3 ml NEB Q3HP PRN 08/13/18 Levothyroxine Sodium [Synthroid 0.05 mg Tablet] 0.05 mg PO Q6AM 08/13/18 Levothyroxine Sodium [Synthroid] 200 mcg PO Q6AM 08/13/18 Potassium 198 mg PO DAILY 08/13/18 Allergies/Adverse Reactions: melon Allergy (Unknown, Verified 07/02/18 19:17) allopurinol [From Zyloprim] Allergy (Verified 03/06/18 03:47) amitriptyline HCl [From Elavil] Allergy (Verified 03/06/18 03:47) belladonna alkaloids [From Bellergal-S] Allergy (Verified 03/06/18 03:47) cefuroxime axetil [From Ceftin] Allergy (Verified 03/06/18 03:47) celecoxib [From Celebrex] Allergy (Verified 03/06/18 03:47) cimetidine [From Tagamet] Allergy (Verified 03/06/18 03:47) codeine [Codeine] Allergy (Verified 03/06/18 03:47) doxepin HCl [From Sinequan] Allergy (Verified 03/06/18 03:47) ergotamine tartrate [From Bellergal-S] Allergy (Verified 03/06/18 03:47) fluoxetine HCl [From Prozac] Allergy (Verified 03/06/18 03:47) hydroxyzine HCl [From Atarax] Allergy (Verified 03/06/18 03:47) indigotindisulfonic acid [From [place]] Allergy (Verified 03/06/18 03:47) malathion Allergy (Verified 03/06/18 03:47) mefenamic acid Allergy (Verified 03/06/18 03:47) Milk Containing Products Allergy (Verified 03/06/18 03:47) naproxen sodium [From Anaprox] Allergy (Verified 03/06/18 03:47) nefazodone HCl [From Serzone] Allergy (Verified 03/06/18 03:47) phenylephrine tannate [From Deconsal CT] Allergy (Verified 03/06/18 03:47) pyrilamine tannate [From Deconsal CT] Allergy (Verified 03/06/18 03:47) tolterodine tartrate [From Detrol] Allergy (Verified 03/06/18 03:47) trazodone HCl [From Desyrel] Allergy (Verified 03/06/18 03:47) morphine Adverse Reaction (Verified 04/11/18 21:58) renuzil Allergy (Uncoded 01/24/18 17:48) surgical steel Allergy (Uncoded 01/24/18 17:48) Review of Systems Constitutional: ABSENT: chills, fever(s), headache(s), weight gain, weight loss Eyes: ABSENT: visual disturbances Ears: ABSENT: hearing changes Cardiovascular: PRESENT: dyspnea on exertion, edema Respiratory: PRESENT: cough, dyspnea, sputum Gastrointestinal: ABSENT: abdominal pain, constipation, diarrhea, hematemesis, hematochezia, nausea, vomiting Genitourinary: ABSENT: dysuria, hematuria Musculoskeletal: ABSENT: joint swelling Integumentary: ABSENT: rash, wounds Neurological: ABSENT: abnormal gait, abnormal speech, confusion, dizziness, focal weakness, syncope Psychiatric: ABSENT: anxiety, depression, homidical ideation, suicidal ideation Endocrine: ABSENT: cold intolerance, heat intolerance, menstrual abnormalities, polydipsia, polyuria Hematologic/Lymphatic: ABSENT: easy bleeding, easy bruising, lymphadenopathy Physical Exam Vital Signs: Temp Pulse Resp BP Pulse Ox 97.5 F 56 L 20 147/30 H 100 08/13/18 17:55 08/13/18 18:42 08/13/18 17:55 08/13/18 17:55 08/13/18 17:55 Intake & Output 08/12/18 08/13/18 08/14/18 06:59 06:59 06:59 Intake Total 0 Balance 0 Weight 80.2 kg General appearance: PRESENT: mild distress Head exam: PRESENT: atraumatic, normocephalic Eye exam: PRESENT: periorbital swelling, PERRLA Ear exam: PRESENT: normal external ear exam Mouth exam: PRESENT: moist, tongue midline Neck exam: PRESENT: full ROM Respiratory exam: PRESENT: clear to auscultation oh Cardiovascular exam: PRESENT: RRR, +S1, +S2 Pulses: PRESENT: normal dorsalis pedis pul, +2 pedal pulses bilateral Vascular exam: PRESENT: normal capillary refill GI/Abdominal exam: PRESENT: normal bowel sounds, soft Rectal exam: PRESENT: deferred Neurological exam: PRESENT: alert, CN II-XII grossly intact. ABSENT: motor sensory deficit Psychiatric exam: PRESENT: appropriate affect, normal mood Skin exam: PRESENT: dry, intact, warm. ABSENT: cyanosis, rash Results Laboratory Results: 08/13/18 16:39 08/13/18 16:39 07/04/0208/13/18 08/13/18 16:39 16:39 16:39 WBC 8.5 RBC 3.88 Hgb 9.0 L Hct 30.2 L MCV 78 L MCH 23.2 L MCHC 29.8 L RDW 20.6 H Plt Count 155 Seg Neutrophils % 75.9 Lymphocytes % 15.7 Monocytes % 6.7 Eosinophils % 1.0 Basophils % 0.7 Absolute Neutrophils 6.5 Absolute Lymphocytes 1.3 Absolute Monocytes 0.6 Absolute Eosinophils 0.1 Absolute Basophils 0.1 Sodium 140.6 Potassium 4.6 Chloride 100 Carbon Dioxide 34 H Anion Gap 7 BUN 15 Creatinine 1.06 Est GFR ( Amer) > 60 Est GFR (Non-Af Amer) 51 L Glucose 160 H Calcium 8.9 Total Bilirubin 0.2 AST 19 ALT 19 Alkaline Phosphatase 63 Total Protein 6.9 Albumin 3.9 TSH 22.30 H Free T4 0.57 L Impressions: Chest X-Ray 08/13/18 18:37 IMPRESSION: Cardiomegaly with small left pleural effusion and mild pulmonary edema. Assessment & Plan - Diagnosis (1) Acute hypercapnic respiratory failure Is this a current diagnosis for this admission?: Yes Plan: She has chronic respiratory failure requiring oxygen therapy continue bronchodilators, She has social problems she probably need to be placed in a [place] [facility] [place] facility otherwise she will continue to return back to the hospital for readmission. She has financial challenges, she cannot afford most of the recommended medications (2) Myxedema Is this a current diagnosis for this admission?: Yes Plan: She has myxedema due to severe hypothyroidism, due to noncompliance with medication, start Synthroid (3) COPD with acute exacerbation Is this a current diagnosis for this admission?: Yes (4) Type 2 diabetes mellitus Qualifiers: Diabetes mellitus studio operations manager insulin use: without [place] [facility] [place] use Diabetes me llitus complication status: with neurologic complications Diabetes mellitus complication detail: with polyneuropathy Qualified Code(s): E11.42 - Type 2 diabetes mellitus with diabetic polyneuropathy Is this a current diagnosis for this admission?: Yes
[2018-08-13 21:28] LABS: ARTERIAL BLOOD BASE EXCESS 3.7 mmol/L; ARTERIAL BLOOD H2CO3 1.57 mmol/L (1.05-1.35); ARTERIAL BLOOD HCO3 29.6 mmol/L (20-24); ARTERIAL BLOOD O2 SATURATION 95.5 % (94-98); ARTERIAL BLOOD PCO2 52.1 mmHg (35-45); ARTERIAL BLOOD PH 7.37 (7.35-7.45); ARTERIAL BLOOD PO2 81.2 mmHg (80-100); ARTERIAL BLOOD TOTAL CO2 31.2 mmol/L (21-25)
[2018-08-13 22:07] LABS: ARTERIAL BLOOD FIO2 3L
[2018-08-13] MEDS: BUSPIRONE HCL 10 MG TABLET PO SCH (22:26)
[2018-08-13] MEDS ORDERED: ACETAMINOPHEN 325 MG TABLET PO ONE (22:40)
--- NOTE | 2018-08-14 00:17 | EKG REPORT ---
SEVERITY:- NORMAL ECG - SINUS RHYTHM : Confirmed by: Melissa Menendez 14-Aug-2018 00:16:46
[2018-08-14 03:34] LABS: APPEARANCE,URINE CLEAR; BILIRUBIN,URINE NEGATIVE (NEGATIVE); COLOR,URINE STRAW; GLUCOSE, URINE 50 mg/dL (NEGATIVE); KETONES,URINE NEGATIVE (NEGATIVE); LEUKOCYTE ESTERASE,URINE NEGATIVE (NEGATIVE); NITRITE,URINE NEGATIVE (NEGATIVE); PROTEIN,URINE 100 mg/dL (NEGATIVE); URINE SPECIFIC GRAVITY 1.008; UROBILINOGEN,URINE NEGATIVE mg/dL (<2.0)
[2018-08-14] MEDS: LEVOTHYROXINE SODIUM 0.05 MG TABLET PO SCH (05:32)
[2018-08-14] MEDS: METHYLPREDNISOLONE INJ 125 MG/2 ML SDV IV SCH ×4 (05:32→23:15)
[2018-08-14] MEDS: LEVOTHYROXINE SODIUM 0.1 MG TABLET PO SCH (05:32)
[2018-08-14] MEDS ORDERED: DEXTROSE 40% GEL 15 GM TUBE PO PRN (08:30)
[2018-08-14] MEDS ORDERED: DEXTROSE 50%-WATER SYRINGE 12.5 GM/25 ML DOSE IV PRN (08:30)
[2018-08-14] MEDS ORDERED: GLUCAGON,HUMAN RECOMB 1 MG INJ IM PRN (08:30)
[2018-08-14] MEDS ORDERED: DEXTROSE 40% GEL 15 GM TUBE X 2 PO PRN (08:30)
[2018-08-14] MEDS ORDERED: DEXTROSE 50%-WATER SYRINGE 25 GM/50 ML DOSE IV PRN (08:30)
[2018-08-14] MEDS ORDERED: INSULIN LISPRO 100 UNIT/ML 3 ML VIAL SUBCUT ONE (09:00)
[2018-08-14] MEDS: BUSPIRONE HCL 10 MG TABLET PO SCH ×2 (09:33→21:38)
[2018-08-14] MEDS: INSULIN LISPRO 100 UNIT/ML 3 ML VIAL SUBCUT SCH ×3 (11:56→21:37)
--- NOTE | 2018-08-14 18:20 | PDOC PROGRESS REPORT ---
Subjective Progress Note for:: 08/14/18 Subjective:: Patient was seen by the bedside,, she is on IV Solu-Medrol Reason For Visit: ACUTE OR CHRONIC RESPIRATORY FAILURE, MYXEDEMIA Physical Exam Vital Signs: Temp Pulse Resp BP Pulse Ox 97.5 F 53 L 20 142/46 H 99 08/14/18 15:28 08/14/18 15:28 08/14/18 15:28 08/14/18 15:28 08/14/18 15:28 Intake & Output 08/13/18 08/14/18 08/15/18 06:59 06:59 06:59 Intake Total 666 1255 Balance 666 1255 Weight 81.7 kg General appearance: PRESENT: no acute distress Eye exam: PRESENT: PERRLA Respiratory exam: PRESENT: wheezes Cardiovascular exam: PRESENT: +S1, +S2 GI/Abdominal exam: PRESENT: soft Neurological exam: PRESENT: alert, CN II-XII grossly intact Results Laboratory Results: 08/13/18 16:39 08/13/18 16:39 08/13/18 08/13/18 08/13/18 16:39 16:39 16:39 WBC 8.5 RBC 3.88 Hgb 9.0 L Hct 30.2 L MCV 78 L MCH 23.2 L MCHC 29.8 L RDW 20.6 H Plt Count 155 Seg Neutrophils % 75.9 Lymphocytes % 15.7 Monocytes % 6.7 Eosinophils % 1.0 Basophils % 0.7 Absolute Neutrophils 6.5 Absolute Lymphocytes 1.3 Absolute Monocytes 0.6 Absolute Eosinophils 0.1 Absolute Basophils 0.1 Carbonic Acid HCO3/H2CO3 Ratio ABG pH ABG pCO2 ABG pO2 ABG HCO3 ABG O2 Saturation ABG Base Excess FiO2 Sodium 140.6 Potassium 4.6 Chloride 100 Carbon Dioxide 34 H Anion Gap 7 BUN 15 Creatinine 1.06 Est GFR ( Amer) > 60 Est GFR (Non-Af Amer) 51 L Glucose 160 H Calcium 8.9 Total Bilirubin 0.2 AST 19 ALT 19 Alkaline Phosphatase 63 Total Protein 6.9 Albumin 3.9 TSH 22.30 H Free T4 0.57 L Urine Color Urine Appearance Urine pH Ur Specific [place] Urine Protein Urine Glucose (UA) Urine Ketones Urine Blood Urine Nitrite Ur Leukocyte Esterase Urine WBC (Auto) 08/13/18 08/14/18 21:10 02:50 WBC RBC Hgb Hct MCV MCH MCHC RDW Plt Count Seg Neutrophils % Lymphocytes % Monocytes % Eosinophils % Basophils % Absolute Neutrophils Absolute Lymphocytes Absolute Monocytes Absolute Eosinophils Absolute Basophils Carbonic Acid 1.57 H HCO3/H2CO3 Ratio 18:1 ABG pH 7.37 ABG pCO2 52.1 H ABG pO2 81.2 ABG HCO3 29.6 H ABG O2 Saturation 95.5 ABG Base Excess 3.7 FiO2 3L Sodium Potassium Chloride Carbon Dioxide Anion Gap BUN Creatinine Est GFR ( Amer) Est GFR (Non-Af Amer) Glucose Calcium Total Bilirubin AST ALT Alkaline Phosphatase Total Protein Albumin TSH Free T4 Urine Color STRAW Urine Appearance CLEAR Urine pH 6.0 Ur Specific [place] 1.008 Urine Protein 100 H Urine Glucose (UA) 50 H Urine Ketones NEGATIVE Urine Blood NEGATIVE Urine Nitrite NEGATIVE Ur Leukocyte Esterase NEGATIVE Urine WBC (Auto) 1 Impressions: Chest X-Ray 08/13/18 18:37 IMPRESSION: Cardiomegaly with small left pleural effusion and mild pulmonary edema. Assessment & Plan - Diagnosis (1) Acute hypercapnic respiratory failure Is this a current diagnosis for this admission?: Yes Plan: She has chronic respiratory failure requiring oxygen therapy continue bronchodilators, She has social problems she probably need to be placed in a detention otherwise she will continue to return back to the hospital for read mission. She has financial challenges, she cannot afford most of the recommended medications (2) Myxedema Is this a current diagnosis for this admission?: Yes Plan: She has myxedema due to severe hypothyroidism, due to noncompliance with medication, continue Synthroid (3) COPD with acute exacerbation Is this a current diagnosis for this admission?: Yes Plan: continue solumedrol (4) Type 2 diabetes mellitus Qualifiers: Diabetes mellitus termination clerk insulin use: without halfway use Diabetes mellitus complication status: with neurologic complications Diabetes mellitus complication detail: with polyneuropathy Qualified Code(s): E11.42 - Type 2 diabetes mellitus with diabetic polyneuropathy Is this a current diagnosis for this admission?: Yes
[2018-08-14] MEDS: ACETAMINOPHEN 325 MG TABLET PO PRN (18:58)
[2018-08-14 19:11] LABS: UR PRO/CREAT RATIO RESULT 2.8 mg/mg (0.0-0.2); URINE CREATININE 35.4 mg/dL (15-278)
[2018-08-15] MEDS: METHYLPREDNISOLONE INJ 125 MG/2 ML SDV IV SCH ×3 (06:13→17:00)
[2018-08-15] MEDS: LEVOTHYROXINE SODIUM 0.05 MG TABLET PO SCH (06:14)
[2018-08-15] MEDS: LEVOTHYROXINE SODIUM 0.1 MG TABLET PO SCH (06:14)
[2018-08-15] MEDS: INSULIN LISPRO 100 UNIT/ML 3 ML VIAL SUBCUT SCH ×4 (08:18→21:27)
[2018-08-15] MEDS: BUSPIRONE HCL 10 MG TABLET PO SCH ×2 (09:26→21:26)
--- NOTE | 2018-08-15 10:05 | PDOC PROGRESS REPORT ---
Subjective Progress Note for:: 08/15/18 Subjective:: Patient seen by the bedside, she is very weak, very deconditioned she would need physical therapy and rehabilitation, patient is concerned about the cost. Noncompliant with medication Reason For Visit: ACUTE OR CHRONIC RESPIRATORY FAILURE, MYXEDEMIA Physical Exam Vital Signs: Temp Pulse Resp BP Pulse Ox 97.7 F 50 L 16 152/45 H 100 08/15/18 07:19 08/15/18 07:19 08/15/18 07:19 08/15/18 07:19 08/15/18 07:19 Intake & Output 08/14/18 08/15/18 08/16/18 06:59 06:59 06:59 Intake Total 666 1832 Output Total 2200 Balance 666 -368 Weight 81.7 kg 82.2 kg General appearance: PRESENT: no acute distress Eye exam: PRESENT: PERRLA Respiratory exam: PRESENT: decreased breath sounds Cardiovascular exam: PRESENT: +S1, +S2 GI/Abdominal exam: PRESENT: soft Neurological exam: PRESENT: alert Results Laboratory Results: 08/13/18 16:39 08/13/18 16:39 Impressions: Chest X-Ray 08/13/18 18:37 IMPRESSION: Cardiomegaly with small left pleural effusion and mild pulmonary edema. Assessment & Plan - Diagnosis (1) Acute hypercapnic respiratory failure Is this a current diagnosis for this admission?: Yes Plan: She has chronic respiratory failure requiring oxygen therapy continue bronchodilators, She has social problems she probably need to be placed in a half-way otherwise she will continue to return back to the hospital for readmission. She has financial challenges, she cannot afford most of the recommended medications (2) Myxedema Is this a current diagnosis for this admission?: Yes (3) COPD with acute exacerbation Is this a current diagnosis for this admission?: Yes Plan: Reduce Solu-Medrol to 60 mg IV every 8 (4) Type 2 diabetes mellitus Qualifiers: Diabetes mellitus casino manager insulin use: without casino manager use Diabetes mellitus complication status: with neurologic complications Diabetes mellitus complication detail: with polyneuropathy Qualified Code(s): E11.42 - Type 2 diabetes mellitus with diabetic polyneuropathy Is this a current diagnosis for this admission?: Yes Plan: Start Januvia, Lantus 25 units daily
[2018-08-15] MEDS: SITAGLIPTIN PHOSPHATE 50 MG TABLET PO SCH (10:41)
[2018-08-15] MEDS: ACETAMINOPHEN 325 MG TABLET PO PRN ×2 (10:41→21:25)
[2018-08-15] MEDS: INSULIN GLARGINE,HUM.REC.ANLOG 1,000 UNIT/10 ML VIAL SUBCUT SCH (21:26)
[2018-08-16] MEDS: METHYLPREDNISOLONE INJ 125 MG/2 ML SDV IV SCH ×2 (00:02→05:03)
[2018-08-16] MEDS: ACETAMINOPHEN 325 MG TABLET PO PRN ×4 (01:24→21:37)
[2018-08-16] MEDS: LEVOTHYROXINE SODIUM 0.05 MG TABLET PO SCH (05:04)
[2018-08-16] MEDS: LEVOTHYROXINE SODIUM 0.1 MG TABLET PO SCH (05:04)
[2018-08-16] MEDS: INSULIN LISPRO 100 UNIT/ML 3 ML VIAL SUBCUT SCH ×4 (08:34→21:36)
[2018-08-16] MEDS: SITAGLIPTIN PHOSPHATE 50 MG TABLET PO SCH (10:03)
[2018-08-16] MEDS: BUSPIRONE HCL 10 MG TABLET PO SCH ×2 (10:03→21:37)
--- NOTE | 2018-08-16 11:53 | PDOC PROGRESS REPORT ---
Subjective Progress Note for:: 08/16/18 Subjective:: ,Patient seen by the ,she does not want to be transfer or discharge today Reason For Visit: ACUTE OR CHRONIC RESPIRATORY FAILURE, MYXEDEMIA Physical Exam Vital Signs: Temp Pulse Resp BP Pulse Ox 97.7 F 57 L 20 164/54 H 98 08/16/18 07:28 08/16/18 07:28 08/16/18 07:28 08/16/18 07:28 08/16/18 09:36 Intake & Output 08/15/18 08/16/18 08/17/18 06:59 06:59 06:59 Intake Total 1832 1072 Output Total 2200 450 Balance -368 622 Weight 82.2 kg 82.4 kg General appearance: PRESENT: no acute distress Eye exam: PRESENT: PERRLA Respiratory exam: PRESENT: clear to auscultation oh Cardiovascular exam: PRESENT: +S1, +S2 Neurological exam: PRESENT: alert Results Laboratory Results: 08/13/18 16:39 08/13/18 16:39 Impressions: Chest X-Ray 08/13/18 18:37 IMPRESSION: Cardiomegaly with small left pleural effusion and mild pulmonary edema. Assessment & Plan - Diagnosis (1) Acute hypercapnic respiratory failure Is this a current diagnosis for this admission?: Yes (2) Myxedema Is this a current diagnosis for this admission?: Yes (3) COPD with acute exacerbation Is this a current diagnosis for this admission?: Yes Plan: Reduce Solu-Medrol to 30 mg, start Trelegy (4) Type 2 diabetes mellitus Qualifiers: Diabetes mellitus termite treater helper insulin use: without alf use Diabetes mellitus complication status: with neurologic complications Diabetes mellitus complication detail: with polyneuropathy Qualified Code(s): E11.42 - Type 2 diabetes mellitus with diabetic polyneuropathy Is this a current diagnosis for this admission?: Yes
[2018-08-16] MEDS ORDERED: METHYLPREDNISOLONE INJ 125 MG/2 ML SDV IV SCH (12:00)
[2018-08-16] MEDS: METHYLPREDNISOLONE INJ 40 MG/1 ML SDV IV SCH ×2 (12:57→18:28)
[2018-08-16] MEDS: FLUTICASONE/UMECLIDIN/VILANTER 100-62.5-25 MCG/DOSE IH SCH (14:31)
[2018-08-16] MEDS: INSULIN GLARGINE,HUM.REC.ANLOG 1,000 UNIT/10 ML VIAL SUBCUT SCH (21:36)
[2018-08-17] MEDS: METHYLPREDNISOLONE INJ 40 MG/1 ML SDV IV SCH ×5 (02:21→23:47)
[2018-08-17] MEDS: LEVOTHYROXINE SODIUM 0.1 MG TABLET PO SCH (05:20)
[2018-08-17] MEDS: LEVOTHYROXINE SODIUM 0.05 MG TABLET PO SCH (05:20)
[2018-08-17] MEDS: INSULIN LISPRO 100 UNIT/ML 3 ML VIAL SUBCUT SCH ×4 (08:59→21:24)
[2018-08-17] MEDS: BUSPIRONE HCL 10 MG TABLET PO SCH ×2 (09:43→21:25)
[2018-08-17] MEDS: SITAGLIPTIN PHOSPHATE 50 MG TABLET PO SCH (09:43)
[2018-08-17] MEDS: FLUTICASONE/UMECLIDIN/VILANTER 100-62.5-25 MCG/DOSE IH SCH (09:44)
--- NOTE | 2018-08-17 11:39 | PDOC PROGRESS REPORT ---
Subjective Progress Note for:: 08/17/18 Subjective:: Remain on supplemental oxygen via nasal cannula. She denied any chest pain. She reported continued unsteadiness on her feet. She denied any fall. Ambulate with cane at home. No nausea, vomiting, or abdominal pain. No fever or chills. Reason For Visit: ACUTE OR CHRONIC RESPIRATORY FAILURE, MYXEDEMIA Physical Exam Vital Signs: Temp Pulse Resp BP Pulse Ox 97.4 F 57 L 16 163/60 H 97 08/17/18 07:33 08/17/18 07:33 08/17/18 07:33 08/17/18 07:33 08/17/18 07:33 Intake & Output 08/16/18 08/17/18 08/18/18 06:59 06:59 06:59 Intake Total 1072 1644 Output Total 450 2400 Balance 622 -756 Weight 82.4 kg 82.5 kg General appearance: PRESENT: mild distress - on supplemental oxygen via nasal cannula. Head exam: PRESENT: atraumatic, normocephalic Eye exam: PRESENT: conjunctiva pink. ABSENT: scleral icterus Ear exam: PRESENT: normal external ear exam Mouth exam: PRESENT: moist Teeth exam: PRESENT: poor dentation Respiratory exam: PRESENT: decreased breath sounds - at lung basses. ABSENT: rhonchi, wheezes Cardiovascular exam: PRESENT: RRR. ABSENT: diastolic murmur, rubs, systolic murmur Vascular exam: ABSENT: pallor GI/Abdominal exam: PRESENT: normal bowel sounds, soft. ABSENT: distended, guarding, mass, organolmegaly, rebound, tenderness Extremities exam: ABSENT: pedal edema Neurological exam: PRESENT: alert, awake, oriented to person, oriented to place, oriented to time, oriented to situation, CN II-XII grossly intact. ABSENT: motor sensory deficit Psychiatric exam: PRESENT: appropriate affect, normal mood. ABSENT: homicidal ideation, suicidal ideation Skin exam: PRESENT: dry, warm Results Laboratory Results: 08/13/18 16:39 08/13/18 16:39 Impressions: Chest X-Ray 08/13/18 18:37 IMPRESSION: Cardiomegaly with small left pleural effusion and mild pulmonary edema. Assessment & Plan - Diagnosis (1) Acute hypercapnic respiratory failure Is this a current diagnosis for this admission?: Yes Plan: Improving. Continue current medical management. (2) Acute exacerbation of chronic obstructive pulmonary disease (COPD) Is this a current diagnosis for this admission?: Yes Plan: Maintain on current medical management. (3) Type 2 diabetes mellitus Qualifiers: Diabetes mellitus damper maker insulin use: without custodial use Diabetes mellitus complication status: with neurologic complications Diabetes mellitus complication detail: with polyneuropathy Qualified Code(s): E11.42 - Type 2 diabetes mellitus with diabetic polyneuropathy Is this a current diagnosis for this admission?: Yes Plan: Maintain on current medical management. (4) Hypothyroidism Qualifiers: Hypothyroidism type: unspecified Qualified Code(s): E03.9 - Hypothyroidism, unspecified Is this a current diagnosis for this admission?: Yes Plan: Maintain on current medical management. - Time Time Spent with patient: 25-34 minutes Medications reviewed and adjusted accordingly: Yes Anticipated discharge: Home with Homehealth Within: Other - Inpatient Certification Based on my medical assessment, after consideration of the patient's comorbidities, presenting symptoms, or acuity I expect that the services needed warrant INPATIENT care.: Yes I certify that my determination is in accordance with my understanding of Medicare's requirements for reasonable and necessary INPATIENT services [42 CFR 412.3e].: Yes Medical Necessity: Significant Comorbidiites Make Outpatient Treatment Too Risky, Need Close Monitoring Due to Risk of Patient Decompensation, Need For Continuous Telemetry Monitoring, Risk of Complication if Not Cared For in Hospital, Risk of Diagnosis Which Will Require Inpatient Eval/Care/Monitoring Post Hospital Care: 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
[2018-08-17] MEDS: ACETAMINOPHEN 325 MG TABLET PO PRN ×3 (11:52→23:46)
[2018-08-17 13:36] LABS: CREATINE KINASE MB 0.72 ng/mL (<4.55)
[2018-08-17 13:37] LABS: TROPONIN I < 0.012 ng/mL
--- NOTE | 2018-08-17 19:20 | EKG REPORT ---
SEVERITY:- NORMAL ECG - SINUS RHYTHM : Confirmed by: Melissa Menendez 17-Aug-2018 19:20:17
[2018-08-17] MEDS: INSULIN GLARGINE,HUM.REC.ANLOG 1,000 UNIT/10 ML VIAL SUBCUT SCH (21:24)
[2018-08-18] MEDS: METHYLPREDNISOLONE INJ 40 MG/1 ML SDV IV SCH ×4 (05:32→23:40)
[2018-08-18] MEDS: LEVOTHYROXINE SODIUM 0.1 MG TABLET PO SCH (05:32)
[2018-08-18] MEDS: LEVOTHYROXINE SODIUM 0.05 MG TABLET PO SCH (05:32)
[2018-08-18] MEDS: INSULIN LISPRO 100 UNIT/ML 3 ML VIAL SUBCUT SCH ×4 (07:51→22:05)
[2018-08-18] MEDS: BUSPIRONE HCL 10 MG TABLET PO SCH ×2 (09:39→22:05)
[2018-08-18] MEDS: FLUTICASONE/UMECLIDIN/VILANTER 100-62.5-25 MCG/DOSE IH SCH (09:40)
[2018-08-18] MEDS: SITAGLIPTIN PHOSPHATE 50 MG TABLET PO SCH (09:40)
[2018-08-18] MEDS: ACETAMINOPHEN 325 MG TABLET PO PRN ×3 (10:49→22:05)
--- NOTE | 2018-08-18 16:40 | PDOC PROGRESS REPORT ---
Subjective Progress Note for:: 08/18/18 Subjective:: Patient denied any chest pain. Breathing remain fsair but on supplemental oxygen via nasal cannula. No nausea, vomiting, or abdominal pain. No fever or chills. Reason For Visit: ACUTE OR CHRONIC RESPIRATORY FAILURE, MYXEDEMIA Physical Exam Vital Signs: Temp Pulse Resp BP Pulse Ox 97.8 F 49 L 20 140/52 H 94 08/18/18 11:54 08/18/18 14:00 08/18/18 11:54 08/18/18 11:54 08/18/18 11:54 Intake & Output 08/17/18 08/18/18 08/19/18 06:59 06:59 06:59 Intake Total 1644 1140 474 Output Total 2400 2500 1200 Balance -756 -0510 -726 Weight 82.5 kg 83.5 kg Physical Exam: General appearance: PRESENT: mild distress - on supplemental oxygen via nasal cannula. Head exam: PRESENT: atraumatic, normocephalic Eye exam: PRESENT: conjunctiva pink. ABSENT: pallor, scleral icterus Ear exam: PRESENT: normal external ear exam Mouth exam: PRESENT: moist Teeth exam: PRESENT: poor dentition Respiratory exam: PRESENT: decreased breath sounds - at lung basses. ABSENT: rhonchi, wheezes Cardiovascular exam: PRESENT: RRR. ABSENT: diastolic murmur, rubs, systolic murmur GI/Abdominal exam: PRESENT: normal bowel sounds, soft. ABSENT: distended, guarding, mass, organomegaly, rebound, tenderness Extremities exam: ABSENT: pedal edema Neurological exam: PRESENT: alert, awake, oriented to person, oriented to place, oriented to time, oriented to situation, CN II-XII grossly intact. ABSENT: motor sensory deficit Psychiatric exam: PRESENT: appropriate affect, normal mood. ABSENT: homicidal ideation, suicidal ideation Skin exam: PRESENT: dry, warm Results Laboratory Results: 08/13/18 16:39 08/13/18 16:39 08/17/18 08/17/18 12:45 12:45 Creatine Kinase 23 L CK-MB (CK-2) 0.72 Troponin I < 0.012 Impressions: Chest X-Ray 08/13/18 18:37 IMPRESSION: Cardiomegaly with small left pleural effusion and mild pulmonary edema. Assessment & Plan - Diagnosis (1) Acute hypercapnic respiratory failure Is this a current diagnosis for this admission?: Yes (2) Acute exacerbation of chronic obstructive pulmonary disease (COPD) Is this a current diagnosis for this admission?: Yes (3) Type 2 diabetes mellitus Qualifiers: Diabetes mellitus oil heaterman insulin use: without fdc use Diabetes mellitus complication status: with neurologic complications Diabetes mellitus complication detail: with polyneuropathy Qualified Code(s): E11.42 - Type 2 diabetes mellitus with diabetic polyneuropathy Is this a current diagnosis for this admission?: Yes (4) Hypothyroidism Qualifiers: Hypothyroidism type: unspecified Qualified Code(s): E03.9 - Hypothyroidism, unspecified Is this a current diagnosis for this admission?: Yes - Time Time Spent with patient: 25-34 minutes Medications reviewed and adjusted accordingly: Yes Anticipated discharge: Home with Homehealth Within: Other - Inpatient Certification Based on my medical assessment, after consideration of the patient's comorbidities, presenting symptoms, or acuity I expect that the services needed warrant INPATIENT care.: Yes I certify that my determination is in accordance with my understanding of Medicare's requirements for reasonable and necessary INPATIENT services [42 CFR 412.3e].: Yes Medical Necessity: Significant Comorbidiites Make Outpatient Treatment Too Risky, Need Close Monitoring Due to Risk of Patient Decompensation, Need For IV Fluids, Need for Nebulizer Therapy and Monitoring of Response, Need for Neurological Checks, Risk of Complication if Not Cared For in Hospital, Risk of Diagnosis Which Will Require Inpatient Eval/Care/Monitoring Post Hospital Care: D/C Tool Builder Documentation - Plan Summary Plan Summary: Increase Lantus insulin to 30 units qhs. Maintain on all other current medication management.
[2018-08-18] MEDS: INSULIN GLARGINE,HUM.REC.ANLOG 1,000 UNIT/10 ML VIAL SUBCUT SCH (22:07)
[2018-08-19] MEDS: ACETAMINOPHEN 325 MG TABLET PO PRN ×3 (04:36→15:41)
[2018-08-19] MEDS: METHYLPREDNISOLONE INJ 40 MG/1 ML SDV IV SCH ×3 (05:33→17:28)
[2018-08-19] MEDS: LEVOTHYROXINE SODIUM 0.1 MG TABLET PO SCH (05:34)
[2018-08-19] MEDS: LEVOTHYROXINE SODIUM 0.05 MG TABLET PO SCH (05:34)
[2018-08-19] MEDS: INSULIN LISPRO 100 UNIT/ML 3 ML VIAL SUBCUT SCH ×4 (08:13→21:46)
[2018-08-19] MEDS: SITAGLIPTIN PHOSPHATE 50 MG TABLET PO SCH (09:08)
[2018-08-19] MEDS: BUSPIRONE HCL 10 MG TABLET PO SCH ×2 (09:08→21:46)
[2018-08-19] MEDS: FLUTICASONE/UMECLIDIN/VILANTER 100-62.5-25 MCG/DOSE IH SCH (09:09)
[2018-08-19 10:14] LABS: ABSOLUTE LYMPHOCYTES (AUTO) 0.5 10^3/uL (0.5-4.7); ABSOLUTE MONOCYTES (AUTO) 0.2 10^3/uL (0.1-1.4); ABSOLUTE NEUT (AUTO) 9.4 10^3/uL (1.7-8.2); BASOPHILS % (AUTO) 0.2 % (0-2); HEMATOCRIT 30.6 % (36.0-47.0); HEMOGLOBIN 9.2 g/dL (12.0-15.5); LYMPHOCYTES % (AUTO) 5.2 % (13-45); MEAN CORPUSCULAR HEMOGLOBIN 23.1 pg (27.0-33.4); MEAN CORPUSCULAR HGB CONC 30.1 g/dL (32.0-36.0); MEAN CORPUSCULAR VOLUME 77 fl (80-97); MONOCYTES % (AUTO) 2.2 % (3-13); PLATELET COUNT 171 10^3/uL (150-450); RED BLOOD COUNT 3.99 10^6/uL (3.72-5.28); RED CELL DISTRIBUTION WIDTH 20.1 % (11.5-14.0); SEGMENTED NEUTROPHILS % (AUTO) 92.4 % (42-78); TOTAL CELLS COUNTED % (AUTO) 100 %; WHITE BLOOD COUNT 10.2 10^3/uL (4.0-10.5)
[2018-08-19 10:45] LABS: ALANINE AMINOTRANSFERASE 24 U/L (9-52); ALBUMIN 3.9 g/dL (3.5-5.0); ALKALINE PHOSPHATASE 52 U/L (38-126); ANION GAP 7 (5-19); ASPARTATE AMINO TRANSFERASE 14 U/L (14-36); BILIRUBIN,DIRECT 0.3 mg/dL (0.0-0.4); BILIRUBIN,TOTAL 0.4 mg/dL (0.2-1.3); BLOOD UREA NITROGEN 22 mg/dL (7-20); CALCIUM 8.6 mg/dL (8.4-10.2); CARBON DIOXIDE 37 mmol/L (22-30); CHLORIDE 95 mmol/L (98-107); GLUCOSE 288 mg/dL (75-110); POTASSIUM 5.4 mmol/L (3.6-5.0); SODIUM 138.6 mmol/L (137-145); TOTAL PROTEIN 6.5 g/dL (6.3-8.2)
--- NOTE | 2018-08-19 20:17 | PDOC TRANSFER SUMMARY ---
General - Admit/Disc Date/PCP Admission Date/Primary Care Provider: 08/13/18 16:43 JEN MAE MD Discharge Date: 08/20/18 - Discharge Diagnosis (1) Acute hypercapnic respiratory failure Is this a current diagnosis for this admission?: Yes (2) Myxedema Is this a current diagnosis for this admission?: Yes (3) COPD with acute exacerbation Is this a current diagnosis for this admission?: Yes (4) Type 2 diabetes mellitus Is this a current diagnosis for this admission?: Yes - Additional Information Prescriptions: Duloxetine HCl [Cymbalta 30 mg Capsule.] 60 mg PO DAILY #200 capsule. Home Medications: RX: Buspirone HCl [Buspar 10 mg Tablet] 10 mg PO Q12 08/13/18 RX: Ipratropium/Albuterol Sulfate [Duoneb 3 ml Ampul] 3 ml NEB Q3HP PRN 08/13/18 RX: Levothyroxine Sodium [Synthroid 0.05 mg Tablet] 0.05 mg PO Q6AM 08/13/18 RX: Levothyroxine Sodium [Synthroid] 200 mcg PO Q6AM 08/13/18 Duloxetine HCl [Cymbalta 30 mg Capsule.] 60 mg PO DAILY #200 capsule. 08/19/18 RX: Acetaminophen [Tylenol 325 mg Tablet] 650 mg PO Q4HP PRN tablet 08/19/18 RX: Fluticasone/Umeclidin/Vilanter [Trelegy 100-62.5-25 Mcg Ellipta 14 Dose/Dpi] 1 inh IH DAILY inhaler 08/19/18 RX: Insulin Glargine,Hum.rec.anlog [Lantus Insulin 100 Unit/1 ml 10 ml] 30 unit SUBCUT QHS unit 08/19/18 RX: Ipratropium/Albuterol Sulfate [Duoneb 3 ml Ampul] 3 ml NEB RTQ6HP PRN vial.neb 08/19/18 RX: Sitagliptin Phosphate [Januvia 50 mg Tablet] 100 mg PO DAILY tablet 08/19/18 History of Present Illness Admission Date/PCP: 08/13/18 16:43 JEN MAE MD History of Present Illness: GABINO ALEXANDER is a 73 year old female, Patient is extremely noncompliant, she has chronic respiratory failure due to COPD she has severe hypothyroidism, she is supposed to be on replacement therapy with Synthroid, she came to the office for evaluation of respiratory symptoms, shortness of breath, wheezing and she also have on examination severe myxedema. Patient has not been taking all recommended medications including Synthroid, she is on megadoses of levothyroxine. She has only Medicare she does not have secondary insurance, she does not have Medicare part D for prescription coverage, she stated that she cannot afford the medications that she needed including bronchodilators, levothyroxine, in the office today she was extremely edematous with angioedema of both eyelids, with pretibial edema all consistent with myxedema secondary to severe hypothyroidism. She was admitted directly from the office to the hospital, the pulse oximetry demonstrated hypoxemia on room air, the arterial blood gas that was done also showed respiratory acidosis. Hospital Course Hospital Course: Patient was admitted for the management of acute hypercapnic respiratory failure, myxedema, she was treated with intravenous Solu-Medrol, bronchodilators and also levothyroxine. She has a history of hypothyroidism on replacement therapy with levothyroxine but she has not been taking it partly because she could not afford it, she is extremely noncompliant with her medication for financial reasons she does not have Medicare part D or any prescription coverage she presented with severe myxedema, she was restarted on the thyroid replacement therapy in the hospital. Patient is much better but she has extreme deconditioning with loss of muscle strength I felt she needed in facility physical therapy and rehabilitation, the social sciences instructor should also consider long-term stay for this patient Physical Exam Vital Signs: Temp Pulse Resp BP Pulse Ox 97.2 F 48 L 16 161/57 H 97 08/19/18 15:29 08/19/18 15:29 08/19/18 15:29 08/19/18 15:29 08/19/18 15:29 Intake & Output 08/18/18 08/19/18 08/20/18 06:59 06:59 06:59 Intake Total 6524 240 1898 Output Total 1051 4300 1200 Balance -9747 -4467 170 Weight 83.5 kg 83.2 kg General appearance: PRESENT: no acute distress Head exam: PRESENT: atraumatic, normocephalic Eye exam: PRESENT: conjunctiva pink, EOMI, PERRLA Mouth exam: PRESENT: tongue midline Respiratory exam: PRESENT: clear to auscultation oh Cardiovascular exam: PRESENT: RRR, +S1, +S2 Pulses: PRESENT: normal dorsalis pedis pul Vascular exam: PRESENT: normal capillary refill GI/Abdominal exam: PRESENT: normal bowel sounds, soft Rectal exam: PRESENT: deferred Extremities exam: PRESENT: full ROM Neurological exam: PRESENT: alert, CN II-XII grossly intact Psychiatric exam: PRESENT: appropriate affect, normal mood Skin exam: PRESENT: dry, intact, warm Results Laboratory Results: 08/19/18 09:59 08/19/18 09:59 08/19/18 08/19/18 09:59 09:59 WBC 10.2 RBC 3.99 Hgb 9.2 L Hct 30.6 L MCV 77 L MCH 23.1 L MCHC 30.1 L RDW 20.1 H Plt Count 171 Seg Neutrophils % 92.4 H Lymphocytes % 5.2 L Monocytes % 2.2 L Eosinophils % 0.0 Basophils % 0.2 Absolute Neutrophils 9.4 H Absolute Lymphocytes 0.5 Absolute Monocytes 0.2 Absolute Eosinophils 0.0 Absolute Basophils 0.0 Sodium 138.6 Potassium 5.4 H Chloride 95 L Carbon Dioxide 37 H Anion Gap 7 BUN 22 H Creatinine 0.94 Est GFR ( Amer) > 60 Est GFR (Non-Af Amer) 59 L Glucose 288 H Calcium 8.6 Total Bilirubin 0.4 AST 14 ALT 24 Alkaline Phosphatase 52 Total Protein 6.5 Albumin 3.9 08/17/18 08/17/18 12:45 12:45 Creatine Kinase 23 L CK-MB (CK-2) 0.72 Troponin I < 0.012 Impressions: Chest X-Ray 08/13/18 18:37 IMPRESSION: Cardiomegaly with small left pleural effusion and mild pulmonary edema. Qualifiers - * PATIENT BEING DISCHARGED WITH ANY OF THE FOLLOWING DIAGNOSIS: No VTE patient discharged on overlapping Therapy?: No Reason(s) for not prescribing Overlap Therapy:: Not indicated Stroke Pt being discharged on Anti-thrombolytic therapy?: No Reason(s) for not prescribing Anti-thrombolytic therapy:: Not indicated Stroke Pt being discharged on Anti-coagulation therapy?: No Reason(s) for not prescribing Anti-coagulation therapy:: Not indicated Stroke Pt being discharged on Statins?: No Reason(s) for not prescribing Statins therapy:: Not indicated NC Pt being discharged on Aspirin therapy?: No Reason(s) for not prescribing Aspirin therapy:: Not indicated NC Pt being discharged on Statins?: No Reason(s) for not prescribing Statin therapy:: Not indicated NC Pt discharged ACEI/ARBS?: No Reason(s) for not prescribing ACEI/ARBS:: Not indicated Acute Heart Failure - Is this a Heart Failure Patient?: No e) For LVEF <35%, discharged on Aldosterone antagonist?: N/A (LVEF > or = 35%)
[2018-08-19] MEDS: INSULIN GLARGINE,HUM.REC.ANLOG 1,000 UNIT/10 ML VIAL SUBCUT SCH (21:46)
[2018-08-20] MEDS: METHYLPREDNISOLONE INJ 40 MG/1 ML SDV IV SCH ×3 (00:47→12:12)
[2018-08-20] MEDS: ACETAMINOPHEN 325 MG TABLET PO PRN ×3 (00:48→09:19)
[2018-08-20] MEDS: LEVOTHYROXINE SODIUM 0.1 MG TABLET PO SCH (05:42)
[2018-08-20] MEDS: LEVOTHYROXINE SODIUM 0.05 MG TABLET PO SCH (05:43)
[2018-08-20] MEDS: INSULIN LISPRO 100 UNIT/ML 3 ML VIAL SUBCUT SCH ×2 (07:40→12:08)
[2018-08-20] MEDS: SITAGLIPTIN PHOSPHATE 50 MG TABLET PO SCH (09:17)
[2018-08-20] MEDS: BUSPIRONE HCL 10 MG TABLET PO SCH (09:17)
[2018-08-20] MEDS: FLUTICASONE/UMECLIDIN/VILANTER 100-62.5-25 MCG/DOSE IH SCH (09:19)
[2018-08-20 13:18] VITALS: BP 151/55
== END 2018-08-20 16:26 | DRG 189 ==
LOC: ER 15:30 → EH 16:43 → 3N 17:50
PROVIDERS: ADMIT Internal Medicine; ATTEND Internal Medicine
DX: J96.22 Acute and chronic respiratory failure with hypercapnia (principal); J44.1 Chronic obstructive pulmonary disease with (acute) exacerbation; E11.51 Type 2 diabetes mellitus with diabetic peripheral angiopathy without gangrene; J96.21 Acute and chronic respiratory failure with hypoxia; E03.9 Hypothyroidism, unspecified; K21.9 Gastro-esophageal reflux disease without esophagitis; M19.90 Unspecified osteoarthritis, unspecified site; F32.9 Major depressive disorder, single episode, unspecified; F17.200 Nicotine dependence, unspecified, uncomplicated; R53.1 Weakness; Z79.4 Long term (current) use of insulin; Z91.14 Patient's other noncompliance with medication regimen; Z59.9 Problem related to housing and economic circumstances, unspecified; Z83.3 Family history of diabetes mellitus; Z82.49 Family history of ischemic heart disease and other diseases of the circulatory system; Z88.6 Allergy status to analgesic agent; Z88.1 Allergy status to other antibiotic agents; Z88.8 Allergy status to other drugs, medicaments and biological substances; Z91.018 Allergy to other foods
CPT/HCPCS: 36415; 36600; 71045; 80048; 80053; 80076; 81001; 82550; 82553; 82570; 82803; 82962; 83036; 84156; 84439; 84443; 84484; 85025; 93005; 93010; J1815; J2920; J2930; J3490

== ENCOUNTER 2018-10-31 22:25 | Inpatient (IN) | payer MEDICARE ==
--- NOTE | 2018-10-31 23:40 | ER Document Report ---
ED General - General Chief Complaint: Altered Mental Status Stated Complaint: ALTERED MENTAL STATUS Time Seen by Provider: 10/31/18 23:14 TRAVEL OUTSIDE OF THE [place] IN LAST 30 DAYS: No COUNTRY TRAVELED TO/FROM: [facility] Notes: Patient presents from home for concern of altered mental status per her grandson. Per EMS report, no recent fevers or illnesses. She normally alert oriented and can have a conversation today she talks to me but she is alert and oriented to person and place only but not time. She denies any pain at this time. Limited history based on patient's mental status. - Related Data Allergies/Adverse Reactions: melon Allergy (Unknown, Verified 07/02/18 19:17) allopurinol [From Zyloprim] Allergy (Verified 03/06/18 03:47) amitriptyline HCl [From Elavil] Allergy (Verified 03/06/18 03:47) belladonna alkaloids [From Bellergal-S] Allergy (Verified 03/06/18 03:47) cefuroxime axetil [From Ceftin] Allergy (Verified 03/06/18 03:47) celecoxib [From Celebrex] Allergy (Verified 03/06/18 03:47) cimetidine [From Tagamet] Allergy (Verified 03/06/18 03:47) codeine [Codeine] Allergy (Verified 03/06/18 03:47) doxepin HCl [From S[place]an] Allergy (Verified 03/06/18 03:47) ergotamine tartrate [From Bellergal-S] Allergy (Verified 03/06/18 03:47) fluoxetine HCl [From Prozac] Allergy (Verified 03/06/18 03:47) hydroxyzine HCl [From Atarax] Allergy (Verified 03/06/18 03:47) indigotindisulfonic acid [From [place]] Allergy (Verified 03/06/18 03:47) malathion Allergy (Verified 03/06/18 03:47) mefenamic acid Allergy (Verified 03/06/18 03:47) Milk Containing Products Allergy (Verified 03/06/18 03:47) naproxen sodium [From Anaprox] Allergy (Verified 03/06/18 03:47) nefazodone HCl [From Serzone] Allergy (Verified 03/06/18 03:47) phenylephrine tannate [From [place]] Allergy (Verified 03/06/18 03:47) pyrilamine tannate [From [place] CT] Allergy (Verified 03/06/18 03:47) tolterodine tartrate [From Detrol] Allergy (Verified 03/06/18 03:47) trazodone HCl [From Desyrel] Allergy (Verified 03/06/18 03:47) morphine Adverse Reaction (Verified 04/11/18 21:58) renuzil Allergy (Uncoded 01/24/18 17:48) surgical steel Allergy (Uncoded 01/24/18 17:48) Past Medical History - Social History Smoking Status: Unknown if Ever Smoked Family History: CAD, DM, Hypertension - Past Medical History Cardiac Medical History: Reports: Hx Congestive Heart Failure, Hx Hypertension, Hx Peripheral Vascular Disease Pulmonary Medical History: Reports: Hx COPD, Hx Pneumonia Neurological Medical History: Denies: Hx Seizures Endocrine Medical History: Reports: Hx Diabetes Mellitus Type 2, Hx Hypothyroidism Renal/ Medical History: Denies: Hx Peritoneal Dialysis GI Medical History: Reports: Hx Gastroesophageal Reflux Disease. Denies: Hx Crohn's Disease, Hx Ulcerative Colitis Musculoskeletal Medical History: Reports Hx Arthritis, Denies Hx Gout Skin Medical History: Denies Hx Eczema, Denies Hx Psoriasis Psychiatric Medical History: Reports: Hx Depression Denies: Hx Bipolar Disorder, Hx Personality Disorder, Hx Schizoaffective Disorder Traumatic Medical History: Denies: Hx Traumatic Brain Injury Past Surgical History: Reports: Hx Cholecystectomy, Hx Orthopedic Surgery - L Wrist. Denies: Hx Hysterectomy - Immunizations Immunizations up to date: No Hx Diphtheria, Pertussis, Tetanus Vaccination: No Review of Systems - Review of Systems -: Yes ROS unobtainable due to patient's medical condition Physical Exam - Vital signs Vitals: Resp Pulse Ox 20 84 L 11/01/18 01:04 11/01/18 01:04 - General General appearance: Appears well, Alert - HEENT Head: Normocephalic, Atraumatic Eyes: Normal Conjunctiva: Normal Cornea: Normal Extraocular movements intact: Yes Eyelashes: Normal Pupils: PERRL - Respiratory Respiratory status: No respiratory distress Chest status: Nontender Breath sounds: Normal Chest palpation: Normal - Cardiovascular Rhythm: Regular Heart sounds: Normal auscultation Murmur: No - Abdominal Inspection: Normal Distension: No distension Bowel sounds: Normal - Back Back: Normal, Nontender - Extremities General upper extremity: Normal inspection, Normal ROM General lower extremity: Normal inspection, Normal ROM - Neurological Neuro grossly intact: Yes Cognition: Normal Orientation: Disoriented to time. No: Disoriented to person, Disoriented to place Course - Vital Signs Vital signs: Temp Pulse Resp BP Pulse Ox 101.1 F H 70 18 146/59 H 95 11/04/18 07:33 11/04/18 11:12 11/04/18 11:12 11/04/18 11:12 11/04/18 11:12 - Laboratory Result Diagrams: 11/04/18 05:15 11/04/18 05:15 Laboratory results interpreted by me: 11/01/18 11/01/18 11/01/18 01:24 01:26 01:26 Hgb 10.4 L Hct 34.5 L MCV 78 L MCH 23.4 L MCHC 30.2 L RDW 19.6 H Glucose 138 H POC Glucose 139 H TSH Free T4 Urine Protein 11/01/18 11/01/18 01:26 01:26 Hgb Hct MCV MCH MCHC RDW Glucose POC Glucose TSH 23.60 H Free T4 0.64 L Urine Protein >=500 H Discharge - Discharge Clinical Impression: Altered mental status, Acute and chronic respiratory failure ([id number]), Hypothyroidism, Myxedema Condition: Good Disposition: ADMITTED INPATIENT
[2018-11-01 01:38] LABS: ABSOLUTE BASOPHILS # (AUTO) 0.1 10^3/uL (0.0-0.2); ABSOLUTE EOSINOPHILS # (AUTO) 0.1 10^3/uL (0.0-0.6); ABSOLUTE LYMPHOCYTES (AUTO) 1.7 10^3/uL (0.5-4.7); ABSOLUTE MONOCYTES (AUTO) 0.6 10^3/uL (0.1-1.4); ABSOLUTE NEUT (AUTO) 5.4 10^3/uL (1.7-8.2); BASOPHILS % (AUTO) 0.9 % (0-2); EOSINOPHILS % (AUTO) 0.9 % (0-6); HEMATOCRIT 34.5 % (36.0-47.0); HEMOGLOBIN 10.4 g/dL (12.0-15.5); MEAN CORPUSCULAR HEMOGLOBIN 23.4 pg (27.0-33.4); MEAN CORPUSCULAR HGB CONC 30.2 g/dL (32.0-36.0); MEAN CORPUSCULAR VOLUME 78 fl (80-97); MONOCYTES % (AUTO) 7.3 % (3-13); PLATELET COUNT 226 10^3/uL (150-450); RED BLOOD COUNT 4.44 10^6/uL (3.72-5.28); RED CELL DISTRIBUTION WIDTH 19.6 % (11.5-14.0); SEGMENTED NEUTROPHILS % (AUTO) 68.9 % (42-78); TOTAL CELLS COUNTED % (AUTO) 100 %; WHITE BLOOD COUNT 7.9 10^3/uL (4.0-10.5)
--- NOTE | 2018-11-01 01:39 | ER Document Report ---
HPI - HPI Patient complains to provider of: ams Time Seen by Provider: 10/31/18 23:14 Quality of pain: No pain Pain Level: Denies Context: pt is a 73 yr old female with the listed pmh, brought in by ems, after her grand son apparently called them for concern of ams, as pt "wasn't talking her normal self", it is unsure how long this has been going on, the grandson isn't able to be reached apparently. pt is an extremely poor historian and isn't able to give any hx. she does have a hx of dementia but apparently is more coherent than what she presents today per report from ems. i have no prior mental status of her to know her baseline however for comparison. she doesn't know why she is here. she isn't too happy about still being here it seems as she is a bit short with her answers with me and seems to get agitated when she doesn't know an answer. she doesn't get physically violent however. she doesn't know what year it is. she initially didn't know she had a grandson or someone she lived with, she doesn't know what town she is in, she doesn't know her last name, but does know her first name, she doesn't know the president. she denies any pain or any complaints to me and she is sitting on the side of the bed, constantly pulling off her pulse oximetry, and refuses to lay down in the bed for me to examine her abdomen. this is the full extent of my hx avail from the pt. 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 no one is here with her to give any further hx and ems didn't endorse any further hx so it appears this may be the case again. she doesn't appear to have any overlying skin changes to suggest trauma and can clearly move all extre mities to swat nursing away. she appears more comfortable with men care givers and more agitated with female care givers. no other associated sx or hx gained from this limited hx. from prior records it appears dr. marr is her pcp. Similar symptoms previously: Yes Recently seen / treated by doctor: No - ROS ROS Unobtainable: Yes ROS unobtainable due to patient's medical condition - pt has a hx of dementia. she is not a reliable historian Past Medical History - General Information source: Patient, Transfer Record, Emergency Med Personnel, [facility] Records Cannot obtain history due to: Dementia, Altered mental status - Social History Smoking Status: Unknown if Ever Smoked Frequency of alcohol use: unknown Drug Abuse: Other - unknown. pt is on pain meds per past med records Lives with: Family Family History: CAD, DM, Hypertension Patient has suicidal ideation: No - however pt not a reliable historian Patient has homicidal ideation: No - however pt not a reliable historian - Past Medical History Cardiac Medical History: Reports: Hx Congestive Heart Failure, Hx Hypertension, Hx Peripheral Vascular Disease Other: medication noncompliance Pulmonary Medical History: Reports: Hx COPD - not on home o2, Hx Pneumonia Neurological Medical History: Denies: Hx Seizures Endocrine Medical History: Reports: Hx Diabetes Mellitus Type 2, Hx Hypothyroidism - w/med noncompliance and hx of myxedema coma Renal/ Medical History: Denies: Hx Hemodialysis, Hx Peritoneal Dialysis GI Medical History: Reports: Hx Gastroesophageal Reflux Disease. Denies: Hx Crohn's Disease, Hx Ulcerative Colitis Musculoskeletal Medical History: Reports Hx Arthritis, Denies Hx Gout Skin Medical History: Denies Hx Eczema, Denies Hx Psoriasis Psychiatric Medical History: Reports: Hx Depression Denies: Hx Bipolar Disorder, Hx Personality Disorder, Hx Schizoaffective Disorder Traumatic Medical History: Denies: Hx Traumatic Brain Injury Infectious Medical History: Reports: None Past Surgical History: Reports: Hx Cholecystectomy, Hx Orthopedic Surgery - L Wrist. Denies: Hx Hysterectomy - Immunizations Immunizations up to date: No Hx Diphtheria, Pertussis, Tetanus Vaccination: No Vertical Provider Document - CONSTITUTIONAL Agree With Documented VS: Yes Exam Limitations: Clinical Condition General Appearance: No Apparent Distress Notes: GENERAL_APPEARANCE: well_nourished, alert, somewhat cooperative, no obvious discomfort. Pleasant for the most part but gets agitated quickly, elderly obese white female, speaking in full sentences, in no sign of pain or resp distress, easily sitting up. no one is with her. she is constantly trying to pull off her pulse oxymetry off her finger and will only agree to sit up on the side of the bed and not lay down on the bed to allow for a complete physical exam. exam is limited again to pt noncompliance and mental status. VITALS: reviewed, see vital signs table. HEAD: normocephalic and atraumatic, no raccoon eyes, no kincaid signs. no swelling or ttp. EARS: canals_clear_bilat, TMs_clear, no_discharge_from_ears. no hemotympanum EYES: EOMI without pain, conjunctiva_clear. PERRL, eyelids wnl. no drainage. no ttp or crepitation of the orbits. no sign of orbital/periorbital cellulitis. no hyphema. no nystagmus. no subconjunctival hemorrhage. no photophobia MOUTH: no_lacerations inside_mouth. no broken teeth. no tmj clicking or ttp. pharynx wnl. tongue protrudes midline. no drooling, tripoding, voice change, or stridor, no thrush or oral lesions. no tongue or lip swelling. NOSE: no drainage or epistaxis NECK: no_swelling\\tenderness on the neck. no midline bony tenderness. no step offs or deformities. full rom. full strength. no meningeal signs. no sign of central cord syndrome. HEART: normal_rate, normal_rhythm, LUNGS: ctab. no chest wall ttp. no overlying skin changes. no flail chest or crepitation. ABDOMEN: normal_BS, soft, no_abd_tenderness, obese abd, exam limited to pts body habitus and noncompliance to lay down on stretcher to perform abd exam adequately, no rebound, guarding, distension, or peritoneal signs from the best i can assess. no cva ttp. not able to assess for overlying skin changes. PELVIC: deferred BACK: no midline bony tenderness. no step offs or deformities RECTAL: deferred, however, no sign of loss of bowel or bladder or soiling of clothing. EXTREMITIES: strength 5/5 in all_extremities, good pulses all_extremities, no_abrasions\\lacerations in the extremities, no_swelling\\tenderness in the extremities. full rom. normal gait. 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 brisk cap refill. no shortening or rotation of the limbs or other signs of deformities unless otherwise noted. SKIN: warm, dry, good_color. no other grossly visible overlying skin changes or signs of trauma unless otherwise noted. NEURO: cranial nerves 2 - 12 intact, motor_intact, sensory_intact. not able to perform further neuro exam due to pt noncompliance and agitation. GLASCOW_COMA_SCORE: (adult) - eyes_open_spontaneously_4, verbal_converses_and_oriented_5, motor_obeys_commands_6, glasgow_coma_total_15, MENTAL_STATUS: speech_clear, oriented_X_1, responds_appropriately to few questions. she does repeat the same statement or same few statements she seems to have memorized to try to answer questions she doesn't know and then gets agitated and glares at you like she is trying to find out if you have the answers or are a threat to her. i am not sure if this is her baseline as she does have dementia or if this is new for her. she was never physically violent with me and could easily be redirected and kept pleasant. - INFECTION CONTROL TRAVEL OUTSIDE OF THE [place] IN LAST 30 DAYS: No Course - Re-evaluation Re-evalutation: 11/01/18 04:15 pt here for ams. brought in via ems. hx and pe limited extremely secondary to this and not knowing her baseline. hx of what appears similar in the past when she had myxema coma. appears it could be some of the same this time. labs as noted below and grossly unremarkable other than mild chronic anemia and and elevated tsh at 23 and a low t4 at 0.64. ekg unremarkable per ed attending. cxr neg per rad and reviewed by myself. ct brain neg per rad and reviewed by myself. apparently none of her family, and even her family member who called ems, can no longer be contacted and aren't available to help guide tx plan, therefore i did consult pts pcp, who also is a hospitalist, who admits his own pts, dr. marr, and he agreed to accept the pt to his service for further workup and tx. care transferred to hospitalist in stable condition. please refer to their note for further details of the visit. vss. On reexam, pt remained stable. nontoxic. well appearing. case discussed with ER Attending, Dr. Gtz , who directed and agrees with plan of care and advised to admit for further workup Documentation achieved through voice recording which may lead to some occasional accidental typographical errors. Extensive efforts have been made to proof read documentation to make sure these are the least as possible. Category Date Time Status Accucheck (ED) NOW Care 10/31/18 23:20 Active Continuous Cardiac Monitoring (ED) CONTINUOUS Care 10/31/18 23:20 Completed EKG Documentation STAT Care 10/31/18 23:20 Completed PCT AccuChek Documentation NOW Care 10/31/18 23:20 Active Pulse Oximeter Continuous (ED) CONTINUOUS Care 10/31/18 23:20 Active Saline Lock (ED) NOW Care 10/31/18 23:20 Active Straight Catheter (ED) NOW Care 10/31/18 23:20 Active CHEST SINGLE VIEW [RAD] Stat Exams 10/31/18 23:[address] HEAD WITHOUT [CT] Stat Exams 10/31/18 23:23 Completed BLOOD CULTURE [MC] Stat Lab 11/01/18 03:19 Received CBC WITH DIFF [HEME] Stat Lab 10/31/18 23:20 Completed COMPREHENSIVE METABOLIC PANEL [CHEM] Stat Lab 10/31/18 23:20 Completed CREATINE KINASE [CHEM] Stat Lab 11/01/18 01:26 Completed FREE T3 [CHEM] Stat Lab 11/01/18 01:26 Completed LACTIC ACID SEPSIS [CHEM] Stat Lab 11/01/18 02:03 Completed LIPASE [CHEM] Stat Lab 11/01/18 01:26 Completed MAGNESIUM [CHEM] Stat Lab 10/31/18 23:20 Completed NT PRO BNP [CHEM] Stat Lab 11/01/18 01:26 Completed PROTHROMBIN TIME/INR [COAG] Stat Lab 10/31/18 23:20 Completed T4 [FREE T4 (FREE THYROXINE)] [CHEM] Stat Lab 11/01/18 01:26 Completed THYROID STIMULATING HORMONE [CHEM] Stat Lab 11/01/18 01:26 Completed TROPONIN I [CHEM] Stat Lab 11/01/18 01:26 Completed URINALYSIS [URIN] Stat Lab 11/01/18 01:26 Completed URINE CULTURE [MC] Stat Lab 11/01/18 01:26 Received URINE DRUG SCREEN [CHEM] Stat Lab 11/01/18 01:26 Completed EKG ER ONLY [ER] Stat Oth 10/31/18 23:19 Active 11/01/18 04:22 - Vital Signs Vital signs: Temp Pulse Resp BP Pulse Ox 93 11/01/18 01:33 Resp BP Pulse Ox 11/01/18 03:00 15 100 11/01/18 02:03 96 11/01/18 01:33 93 11/01/18 01:05 18 119/75 85 L 11/01/18 01:04 20 84 L - Laboratory Result Diagrams: 11/05/18 14:55 11/05/18 14:55 Laboratory results interpreted by me: 11/01/18 11/01/18 01:24 01:26 Hgb 10.4 L Hct 34.5 L MCV 78 L MCH 23.4 L MCHC 30.2 L RDW 19.6 H POC Glucose 139 H 11/01/18 04:14 Labs- Entire Visit 11/01/18 11/01/18 11/01/18 01:24 01:26 01:26 WBC 7.9 RBC 4.44 Hgb 10.4 L Hct 34.5 L MCV 78 L MCH 23.4 L MCHC 30.2 L RDW 19.6 H Plt Count 226 Lymph % (Auto) 22.0 [place] % (Auto) 7.3 Eos % (Auto) 0.9 Baso % (Auto) 0.9 Absolute Neuts (auto) 5.4 Absolute Lymphs (auto) 1.7 Absolute Monos (auto) 0.6 Absolute Eos (auto) 0.1 Absolute Basos (auto) 0.1 Seg Neutrophils % 68.9 PT 13.9 INR 1.06 Sodium Potassium Chloride Carbon Dioxide Anion Gap BUN Creatinine Est GFR ( Amer) Est GFR (MDRD) Non-Af Glucose POC Glucose 139 H Lactic Acid Calcium Magnesium Total Bilirubin Direct Bilirubin Neonat Total Bilirubin Neonat Direct Bilirubin Neonat Indirect Bili AST ALT Alkaline Phosphatase Creatine Kinase Troponin I NT-Pro-B Natriuret Pep Total Protein Albumin Lipase TSH Free T4 Free T3 pg/mL Urine Color Urine Appearance Urine pH Ur Specific [place] Urine Protein Urine Glucose (UA) Urine Ketones Urine Blood Urine Nitrite Urine Bilirubin Urine Urobilinogen Ur Leukocyte Esterase Urine WBC (Auto) Urine RBC (Auto) Urine Bacteria (Auto) Squamous Epi Cells Auto Urine Mucus (Auto) Urine Ascorbic Acid Urine Opiates Screen Urine Methadone Screen Ur Barbiturates Screen Ur Phencyclidine Scrn Ur Amphetamines Screen U Benzodiazepines Scrn Urine Cocaine Screen U Marijuana (THC) Screen 11/01/18 11/01/18 11/01/18 01:26 01:26 01:26 WBC RBC Hgb Hct MCV MCH MCHC RDW Plt Count Lymph % (Auto) [place] % (Auto) Eos % (Auto) Baso % (Auto) Absolute Neuts (auto) Absolute Lymphs (auto) Absolute Monos (auto) Absolute Eos (auto) Absolute Basos (auto) Seg Neutrophils % PT INR Sodium 142.1 Potassium 3.8 Chloride 101 Carbon Dioxide 30 Anion Gap 11 BUN 19 Creatinine 0.90 Est GFR ( Amer) > 60 Est GFR (MDRD) Non-Af > 60 Glucose 138 H POC Glucose Lactic Acid Calcium 9.4 Magnesium 1.8 Total Bilirubin 0.4 Direct Bilirubin 0.2 Neonat Total Bilirubin Not Reportable Neonat Direct Bilirubin Not Reportable Neonat Indirect Bili Not Reportable AST 19 ALT 11 Alkaline Phosphatase 75 Creatine Kinase Troponin I NT-Pro-B Natriuret Pep Total Protein 7.2 Albumin 4.2 Lipase TSH Free T4 Free T3 pg/mL Urine Color YELLOW Urine Appearance CLEAR Urine pH 6.0 Ur Specific [place] 1.016 Urine Protein >=500 H Urine Glucose (UA) NEGATIVE Urine Ketones NEGATIVE Urine Blood NEGATIVE Urine Nitrite NEGATIVE Urine Bilirubin NEGATIVE Urine Urobilinogen NEGATIVE Ur Leukocyte Esterase NEGATIVE Urine WBC (Auto) 3 Urine RBC (Auto) 1 Urine Bacteria (Auto) TRACE Squamous Epi Cells Auto <1 Urine Mucus (Auto) RARE Urine Ascorbic Acid NEGATIVE Urine Opiates Screen NEGATIVE Urine Methadone Screen NEGATIVE Ur Barbiturates Screen NEGATIVE Ur Phencyclidine Scrn NEGATIVE Ur Amphetamines Screen NEGATIVE U Benzodiazepines Scrn NEGATIVE Urine Cocaine Screen NEGATIVE U Marijuana (THC) Screen NEGATIVE 11/01/18 11/01/18 11/01/18 01:26 01:26 01:26 WBC RBC Hgb Hct MCV MCH MCHC RDW Plt Count Lymph % (Auto) [place] % (Auto) Eos % (Auto) Baso % (Auto) Absolute Neuts (auto) Absolute Lymphs (auto) Absolute Monos (auto) Absolute Eos (auto) Absolute Basos (auto) Seg Neutrophils % PT INR Sodium Potassium Chloride Carbon Dioxide Anion Gap BUN Creatinine Est GFR ( Amer) Est GFR (MDRD) Non-Af Glucose POC Glucose Lactic Acid Calcium Magnesium Total Bilirubin Direct Bilirubin Neonat Total Bilirubin Neonat Direct Bilirubin Neonat Indirect Bili AST ALT Alkaline Phosphatase Creatine Kinase 41 Troponin I < 0.012 NT-Pro-B Natriuret Pep 679 Total Protein Albumin Lipase 36.4 TSH 23.60 H Free T4 0.64 L Free T3 pg/mL 3.48 Urine Color Urine Appearance Urine pH Ur Specific [place] Urine Protein Urine Glucose (UA) Urine Ketones Urine Blood Urine Nitrite Urine Bilirubin Urine Urobilinogen Ur Leukocyte Esterase Urine WBC (Auto) Urine RBC (Auto) Urine Bacteria (Auto) Squamous Epi Cells Auto Urine Mucus (Auto) Urine Ascorbic Acid Urine Opiates Screen Urine Methadone Screen Ur Barbiturates Screen Ur Phencyclidine Scrn Ur Amphetamines Screen U Benzodiazepines Scrn Urine Cocaine Screen U Marijuana (THC) Screen 11/01/18 02:03 WBC RBC Hgb Hct MCV MCH MCHC RDW Plt Count Lymph % (Auto) [place] % (Auto) Eos % (Auto) Baso % (Auto) Absolute Neuts (auto) Absolute Lymphs (auto) Absolute Monos (auto) Absolute Eos (auto) Absolute Basos (auto) Seg Neutrophils % PT INR Sodium Potassium Chloride Carbon Dioxide Anion Gap BUN Creatinine Est GFR ( Amer) Est GFR (MDRD) Non-Af Glucose POC Glucose Lactic Acid 0.7 Calcium Magnesium Total Bilirubin Direct Bilirubin Neonat Total Bilirubin Neonat Direct Bilirubin Neonat Indirect Bili AST ALT Alkaline Phosphatase Creatine Kinase Troponin I NT-Pro-B Natriuret Pep Total Protein Albumin Lipase TSH Free T4 Free T3 pg/mL Urine Color Urine Appearance Urine pH Ur Specific [place] Urine Protein Urine Glucose (UA) Urine Ketones Urine Blood Urine Nitrite Urine Bilirubin Urine Urobilinogen Ur Leukocyte Esterase Urine WBC (Auto) Urine RBC (Auto) Urine Bacteria (Auto) Squamous Epi Cells Auto Urine Mucus (Auto) Urine Ascorbic Acid Urine Opiates Screen Urine Methadone Screen Ur Barbiturates Screen Ur Phencyclidine Scrn Ur Amphetamines Screen U Benzodiazepines Scrn Urine Cocaine Screen U Marijuana (THC) Screen - Diagnostic Test Radiology reviewed: Image reviewed, Reports reviewed Radiology results interpreted by nd: 11/01/18 04:14 Chest X-Ray 10/31/18 23:20 IMPRESSION: 1. Cardiomegaly with mild pulmonary vascular congestion. 2. No focal acute infiltrates. Head CT 10/31/18 23:23 IMPRESSION: No acute intracranial findings. - EKG Interpretation by Or EKG shows normal: Sinus rhythm Rate: Normal Rhythm: NSR - 59 bpm, no stemi, reviewed by dr crawford Discharge - Discharge Clinical Impression: Myxedema Altered mental status Qualifiers: Altered mental status type: unspecified Qualified Code(s): R41.82 - Altered mental status, unspecified Acute and chronic respiratory failure ([id number]) Qualifiers: Respiratory failure complication: unspecified whether with hypoxia or hypercapnia Qualified Code(s): J96.20 - Acute and chronic respiratory failure, unspecified whether with hypoxia or hypercapnia Hypothyroidism Qualifiers: Hypothyroidism type: other Qualified Code(s): E03.8 - Other specified hypothyroidism Condition: Good Disposition: ADMITTED INPATIENT Admitting Provider: Nain - accepted the pt at 4:10am Unit Admitted: [facility]
[2018-11-01 01:43] LABS: INTERNATIONAL RATION (INR) 1.06; PROTHROMBIN TIME 13.9 SEC (11.4-15.4)
[2018-11-01 01:50] LABS: ALBUMIN 4.2 g/dL (3.5-5.0); ALKALINE PHOSPHATASE 75 U/L (38-126); ANION GAP 11 (5-19); ASPARTATE AMINO TRANSFERASE 19 U/L (14-36); BILIRUBIN,DIRECT 0.2 mg/dL (0.0-0.4); BILIRUBIN,TOTAL 0.4 mg/dL (0.2-1.3); BLOOD UREA NITROGEN 19 mg/dL (7-20); CALCIUM 9.4 mg/dL (8.4-10.2); CARBON DIOXIDE 30 mmol/L (22-30); CHLORIDE 101 mmol/L (98-107); GLUCOSE 138 mg/dL (75-110); POTASSIUM 3.8 mmol/L (3.6-5.0); TOTAL PROTEIN 7.2 g/dL (6.3-8.2)
[2018-11-01 01:58] LABS: APPEARANCE,URINE CLEAR; BILIRUBIN,URINE NEGATIVE (NEGATIVE); COLOR,URINE YELLOW; GLUCOSE, URINE NEGATIVE (NEGATIVE); KETONES,URINE NEGATIVE (NEGATIVE); LEUKOCYTE ESTERASE,URINE NEGATIVE (NEGATIVE); NITRITE,URINE NEGATIVE (NEGATIVE); PROTEIN,URINE >=500 mg/dL (NEGATIVE); URINE SPECIFIC GRAVITY 1.016; UROBILINOGEN,URINE NEGATIVE mg/dL (<2.0)
--- NOTE | 2018-11-01 02:12 | RADIOLOGY REPORT (SQ) ---
EXAM DESCRIPTION: [facility]: XR CHEST 1 VIEW CLINICAL HISTORY: 73 years Female, AMS COMPARISON: 08/13/2018 FINDINGS: Central interstitial markings are slightly prominent. No pneumothorax or significant pleural effusion. Heart is enlarged as on prior exam. Mild aortic calcification is again noted. Bony structures are unremarkable. IMPRESSION: 1. Cardiomegaly with mild pulmonary vascular congestion. 2. No focal acute infiltrates.
[2018-11-01 02:20] LABS: URINE AMPHETAMINES SCREEN NEGATIVE; URINE BARBITURATES SCREEN NEGATIVE; URINE BENZODIAZEPINES SCREEN NEGATIVE; URINE COCAINE SCREEN NEGATIVE; URINE MARIJUANA (THC) SCREEN NEGATIVE; URINE METHADONE SCREEN NEGATIVE; URINE PHENCYCLIDINE SCREEN NEGATIVE
--- NOTE | 2018-11-01 02:32 | RADIOLOGY REPORT (SQ) ---
CLINICAL HISTORY: ams COMPARISON: None. TECHNIQUE: CT HEAD WITHOUT IV CONTRAST on 10/31/2018 11:23 PM CDT This exam was performed according to our departmental dose-optimization program, which includes automated exposure control, adjustment of the mA and/or kV according to patient size and/or use of iterative reconstruction technique. FINDINGS: There is no acute hemorrhage, mass effect or midline shift. Morales-white differentiation is preserved. There is no hydrocephalus. There is no significant volume loss for age. There are mild patchy hypodensities within the periventricular and subcortical white matter, consistent with microangiopathic ischemic changes. The calvarium is intact. Orbits and globes are unremarkable. There is mild thickening of the posterior left maxillary sinus. Mastoid air cells are clear. IMPRESSION: No acute intracranial findings.
[2018-11-01 03:21] LABS: NT PRO BNP 679 pg/mL (5-900)
[2018-11-01 03:24] LABS: TROPONIN I < 0.012 ng/mL
[2018-11-01 03:27] LABS: FREE T3 3.48 pg/mL (2.77-5.27); FREE T4 (FREE THYROXINE) 0.64 ng/dL (0.78-2.19)
[2018-11-01 03:40] LABS: THYROID STIMULATING HORMONE 23.6 uIU/mL (0.47-4.68)
[2018-11-01 05:20] LABS: ARTERIAL BLOOD BASE EXCESS 0.5 mmol/L; ARTERIAL BLOOD H2CO3 1.38 mmol/L (1.05-1.35); ARTERIAL BLOOD HCO3 26.1 mmol/L (20-24); ARTERIAL BLOOD O2 SATURATION 98.2 % (94-98); ARTERIAL BLOOD PCO2 45.9 mmHg (35-45); ARTERIAL BLOOD PH 7.37 (7.35-7.45); ARTERIAL BLOOD PO2 118.6 mmHg (80-100); ARTERIAL BLOOD TOTAL CO2 27.5 mmol/L (21-25)
[2018-11-01 05:22] LABS: ARTERIAL BLOOD FIO2 100%
--- NOTE | 2018-11-01 07:40 | EKG REPORT ---
SEVERITY:- ABNORMAL ECG - SINUS RHYTHM ABNORMAL T, CONSIDER ISCHEMIA, DAPHNEY LATERAL LEADS, NEW SINCE 08/17/18 EKG BORDERLINE PROLONGED QT INTERVAL : Confirmed by: Zeeshan Castaneda MD 01-Nov-2018 07:39:59
[2018-11-01] MEDS ORDERED: IPRATROPIUM/ALBUTEROL 0.5-2.5 MG/3 ML AMPUL NEB PRN ×2 (08:30→22:17)
[2018-11-01 09:43] LABS: INTERNATIONAL RATION (INR) 1.11; PARTIAL THROMBOPLASTIN TIME 30.8 SEC (23.5-35.8); PROTHROMBIN TIME 14.4 SEC (11.4-15.4)
[2018-11-01 09:45] LABS: PHOSPHORUS 4.2 mg/dL (2.5-4.5)
[2018-11-01] MEDS: ENOXAPARIN SODIUM INJ 40 MG/0.4 ML DISP.SYRIN SUBCUT SCH (10:36)
[2018-11-01] MEDS: NORMAL SALINE 1000 ML 1,000 ML IV PRN (11:00)
--- NOTE | 2018-11-01 15:08 | EKG REPORT ---
SEVERITY:- ABNORMAL ECG - SINUS RHYTHM NONSPECIFIC T ABNORMALITIES, DIFFUSE LEADS PROLONGED QT INTERVAL : Confirmed by: Zeeshan Castaneda MD 01-Nov-2018 15:07:22
[2018-11-01] MEDS ORDERED: ACETAMINOPHEN 325 MG TABLET PO PRN (22:17)
--- NOTE | 2018-11-01 22:29 | PDOC H&P ---
History of Present Illness Admission Date/PCP: 11/01/18 04:50 JEN MAE MD History of Present Illness: GABINO ALEXANDER is a 73 year old female, She has significant multiple comorbid conditions including dementia, COPD, tobacco abuse, severe hypothyroidism she was brought to the emergency room for evaluation of altered mental status in the emergency room CT head did not demonstrate any change.The serum TSH, 23.60 free T4 0.64, I am not sure this patient is compliant with medications the thyroid profile suggests hypothyroid state, she is on very large dosages of Synthroid.Patient family apparently dumped in the emergency room and left . Patient's daughter has expressed to me previously that her mother dementia is progressive, very forgetful and very confused, so what we are experiencing now could be progressive dementia rather than an acute reversible event. Past Medical History Cardiac Medical History: Reports: Congestive Heart Failure, Hypertension, Peripheral Vascular Disease Pulmonary Medical History: Reports: Chronic Obstructive Pulmonary Disease (COPD), Pneumonia Endocrine Medical History: Reports: Diabetes Mellitus Type 2, Hypothyroidism GI Medical History: Reports: Gastroesophageal Reflux Disease Musculoskeltal Medical History: Reports: Arthritis Psychiatric Medical History: Reports: Depression Past Surgical History Past Surgical History: Reports: Cholecystectomy, Orthopedic Surgery - L Wrist Social History Smoking Status: Current Some Day Smoker Frequency of Alcohol Use: None Hx Recreational Drug Use: No Drugs: None Hx Prescription Drug Abuse: No - Advance Directive Resuscitation Status: Do Not Resuscitate Family History Family History: CAD, DM, Hypertension Parental Family History Reviewed: Yes Children Family History Reviewed: Yes Sibling(s) Family History Reviewed.: Yes Medication/Allergy Home Medications: Buspirone HCl [Buspar 10 mg Tablet] 10 mg PO Q12 08/13/18 Levothyroxine Sodium [Synthroid 0.05 mg Tablet] 0.05 mg PO Q6AM 08/13/18 Levothyroxine Sodium [Synthroid] 200 mcg PO Q6AM 08/13/18 Duloxetine HCl [Cymbalta 30 mg Capsule.] 60 mg PO DAILY #200 capsule. 08/19/18 Fluticasone/Umeclidin/Vilanter [Trelegy 100-62.5-25 Mcg Ellipta 14 Dose/Dpi] 1 inh IH DAILY inhaler 08/19/18 Insulin Glargine,Hum.rec.anlog [Lantus Insulin 100 Unit/1 ml 10 ml] 30 unit SUBCUT QHS unit 08/19/18 Ipratropium/Albuterol Sulfate [Duoneb 3 ml Ampul] 3 ml NEB RTQ6HP PRN vial.neb 08/19/18 Sitagliptin Phosphate [Januvia 50 mg Tablet] 100 mg PO DAILY tablet 08/19/18 Acetaminophen [Tylenol 325 mg Tablet] 325 mg PO Q4HP PRN 11/01/18 Allergies/Adverse Reactions: melon Allergy (Unknown, Verified 07/02/18 19:17) allopurinol [From Zyloprim] Allergy (Verified 03/06/18 03:47) amitriptyline HCl [From Elavil] Allergy (Verified 03/06/18 03:47) belladonna alkaloids [From Bellergal-S] Allergy (Verified 03/06/18 03:47) cefuroxime axetil [From Ceftin] Allergy (Verified 03/06/18 03:47) celecoxib [From Celebrex] Allergy (Verified 03/06/18 03:47) cimetidine [From Tagamet] Allergy (Verified 03/06/18 03:47) codeine [Codeine] Allergy (Verified 03/06/18 03:47) doxepin HCl [From Sinequan] Allergy (Verified 03/06/18 03:47) ergotamine tartrate [From Bellergal-S] Allergy (Verified 03/06/18 03:47) fluoxetine HCl [From Prozac] Allergy (Verified 03/06/18 03:47) hydroxyzine HCl [From Atarax] Allergy (Verified 03/06/18 03:47) indigotindisulfonic acid [From Indigo Broussard] Allergy (Verified 03/06/18 03:47) malathion Allergy (Verified 03/06/18 03:47) mefenamic acid Allergy (Verified 03/06/18 03:47) Milk Containing Products Allergy (Verified 03/06/18 03:47) naproxen sodium [From Anaprox] Allergy (Verified 03/06/18 03:47) nefazodone HCl [From Serzone] Allergy (Verified 03/06/18 03:47) phenylephrine tannate [From [place] CT] Allergy (Verified 03/06/18 03:47) pyrilamine tannate [From [place] CT] Allergy (Verified 03/06/18 03:47) tolterodine tartrate [From Detrol] Allergy (Verified 03/06/18 03:47) trazodone HCl [From Desyrel] Allergy (Verified 03/06/18 03:47) morphine Adverse Reaction (Verified 04/11/18 21:58) renuzil Allergy (Uncoded 01/24/18 17:48) surgical steel Allergy (Uncoded 01/24/18 17:48) Review of Systems ROS unobtainable: Due to mental status Physical Exam Vital Signs: Temp Pulse Resp BP Pulse Ox 97.6 F 51 L 21 H 146/45 H 96 11/01/18 19:47 11/01/18 19:47 11/01/18 19:47 11/01/18 19:47 11/01/18 19:47 Intake & Output 10/31/18 11/01/18 11/02/18 06:59 06:59 06:59 Intake Total 0 Balance 0 Weight 86.636 kg General appearance: PRESENT: no acute distress Eye exam: PRESENT: PERRLA Respiratory exam: PRESENT: clear to auscultation oh Cardiovascular exam: PRESENT: +S1, +S2 GI/Abdominal exam: PRESENT: soft Neurological exam: PRESENT: altered Results Laboratory Results: 11/01/18 01:26 11/01/18 01:26 11/01/18 11/01/18 11/01/18 01:26 01:26 01:26 WBC 7.9 RBC 4.44 Hgb 10.4 L Hct 34.5 L MCV 78 L MCH 23.4 L MCHC 30.2 L RDW 19.6 H Plt Count 226 Seg Neutrophils % 68.9 Carbonic Acid HCO3/H2CO3 Ratio ABG pH ABG pCO2 ABG pO2 ABG HCO3 ABG O2 Saturation ABG Base Excess FiO2 Sodium 142.1 Potassium 3.8 Chloride 101 Carbon Dioxide 30 Anion Gap 11 BUN 19 Creatinine 0.90 Est GFR ( Amer) > 60 Glucose 138 H Lactic Acid Calcium 9.4 Phosphorus Magnesium 1.8 Total Bilirubin 0.4 AST 19 Alkaline Phosphatase 75 Ammonia Total Protein 7.2 Albumin 4.2 Amylase Lipase TSH Free T4 Free T3 pg/mL Urine Color YELLOW Urine Appearance CLEAR Urine pH 6.0 Ur Specific [place] 1.016 Urine Protein >=500 H Urine Glucose (UA) NEGATIVE Urine Ketones NEGATIVE Urine Blood NEGATIVE Urine Nitrite NEGATIVE Ur Leukocyte Esterase NEGATIVE Urine WBC (Auto) 3 Urine RBC (Auto) 1 11/01/18 11/01/18 11/01/18 01:26 01:26 02:03 WBC RBC Hgb Hct MCV MCH MCHC RDW Plt Count Seg Neutrophils % Carbonic Acid HCO3/H2CO3 Ratio ABG pH ABG pCO2 ABG pO2 ABG HCO3 ABG O2 Saturation ABG Base Excess FiO2 Sodium Potassium Chloride Carbon Dioxide Anion Gap BUN Creatinine Est GFR ( Amer) Glucose Lactic Acid 0.7 Calcium Phosphorus Magnesium Total Bilirubin AST Alkaline Phosphatase Ammonia Total Protein Albumin Amylase Lipase 36.4 TSH 23.60 H Free T4 0.64 L Free T3 pg/mL 3.48 Urine Color Urine Appearance Urine pH Ur Specific [place] Urine Protein Urine Glucose (UA) Urine Ketones Urine Blood Urine Nitrite Ur Leukocyte Esterase Urine WBC (Auto) Urine RBC (Auto) 11/01/18 11/01/18 11/01/18 04:50 09:07 09:07 WBC RBC Hgb Hct MCV MCH MCHC RDW Plt Count Seg Neutrophils % Carbonic Acid 1.38 H HCO3/H2CO3 Ratio 18:1 ABG pH 7.37 ABG pCO2 45.9 H ABG pO2 118.6 H ABG HCO3 26.1 H ABG O2 Saturation 98.2 H ABG Base Excess 0.5 FiO2 100% Sodium Potassium Chloride Carbon Dioxide Anion Gap BUN Creatinine Est GFR ( Amer) Glucose Lactic Acid Calcium Phosphorus 4.2 Magnesium 1.9 Total Bilirubin AST Alkaline Phosphatase Ammonia < 8.7 L Total Protein Albumin Amylase 31 Lipase 26.2 TSH Free T4 Free T3 pg/mL Urine Color Urine Appearance Urine pH Ur Specific [place] Urine Protein Urine Glucose (UA) Urine Ketones Urine Blood Urine Nitrite Ur Leukocyte Esterase Urine WBC (Auto) Urine RBC (Auto) 11/01/18 11/01/18 11/01/18 01:26 01:26 09:07 Creatine Kinase 41 Troponin I < 0.012 NT-Pro-B Natriuret Pep 679 592 11/01/18 11/01/18 11/01/18 09:07 09:07 15:00 Creatine Kinase 38 41 Troponin I < 0.012 NT-Pro-B Natriuret Pep 11/01/18 11/01/18 11/01/18 15:00 21:24 21:24 Creatine Kinase 38 Troponin I < 0.012 0.013 NT-Pro-B Natriuret Pep Impressions: Chest X-Ray 10/31/18 23:20 IMPRESSION: 1. Cardiomegaly with mild pulmonary vascular congestion. 2. No focal acute infiltrates. Head CT 10/31/18 23:23 IMPRESSION: No acute intracranial findings. Assessment & Plan - Diagnosis (1) Encephalopathy, unspecified Is this a current diagnosis for this admission?: Yes Plan: The differential diagnosis is long, her presentation could also be a manifestation of progressive dementia or could be an acute element that is reversible. She needed MRI of the brain, EEG, lumbar puncture all these tests were ordered but could not obtain consent for this procedure. Consent is typically needed for MRI, EEG and lumbar puncture, no family member could be reach despite multiple attempt. She is a DNR status from previous encounter, this to be maintained
[2018-11-01] MEDS ORDERED: LEVOTHYROXINE SODIUM INJ/PF 0.5 MG SDV IV SCH (22:30)
[2018-11-02 05:10] LABS: ABSOLUTE BASOPHILS # (AUTO) 0.1 10^3/uL (0.0-0.2); ABSOLUTE EOSINOPHILS # (AUTO) 0.1 10^3/uL (0.0-0.6); ABSOLUTE LYMPHOCYTES (AUTO) 1.7 10^3/uL (0.5-4.7); ABSOLUTE MONOCYTES (AUTO) 0.8 10^3/uL (0.1-1.4); ABSOLUTE NEUT (AUTO) 5.9 10^3/uL (1.7-8.2); BASOPHILS % (AUTO) 0.7 % (0-2); EOSINOPHILS % (AUTO) 1.3 % (0-6); HEMOGLOBIN 10.2 g/dL (12.0-15.5); LYMPHOCYTES % (AUTO) 20.3 % (13-45); MEAN CORPUSCULAR HGB CONC 30.9 g/dL (32.0-36.0); MEAN CORPUSCULAR VOLUME 78 fl (80-97); MONOCYTES % (AUTO) 9.1 % (3-13); PLATELET COUNT 212 10^3/uL (150-450); RED BLOOD COUNT 4.26 10^6/uL (3.72-5.28); RED CELL DISTRIBUTION WIDTH 19.1 % (11.5-14.0); SEGMENTED NEUTROPHILS % (AUTO) 68.6 % (42-78); TOTAL CELLS COUNTED % (AUTO) 100 %; WHITE BLOOD COUNT 8.6 10^3/uL (4.0-10.5)
[2018-11-02] MEDS: LEVOTHYROXINE SODIUM 0.05 MG TABLET PO SCH (05:29)
[2018-11-02] MEDS: LEVOTHYROXINE SODIUM 0.1 MG TABLET PO SCH (05:29)
[2018-11-02 05:30] LABS: ALBUMIN 3.7 g/dL (3.5-5.0); ALKALINE PHOSPHATASE 66 U/L (38-126); ANION GAP 8 (5-19); ASPARTATE AMINO TRANSFERASE 22 U/L (14-36); BILIRUBIN,DIRECT 0.2 mg/dL (0.0-0.4); BILIRUBIN,TOTAL 0.6 mg/dL (0.2-1.3); BLOOD UREA NITROGEN 13 mg/dL (7-20); CARBON DIOXIDE 32 mmol/L (22-30); CHLORIDE 101 mmol/L (98-107); GLUCOSE 92 mg/dL (75-110); POTASSIUM 3.7 mmol/L (3.6-5.0); TOTAL PROTEIN 6.6 g/dL (6.3-8.2)
[2018-11-02] MEDS: ENOXAPARIN SODIUM INJ 40 MG/0.4 ML DISP.SYRIN SUBCUT SCH (09:44)
[2018-11-02] MEDS: SITAGLIPTIN PHOSPHATE 50 MG TABLET PO SCH ×2 (09:45→09:50)
[2018-11-02] MEDS: FLUTICASONE/UMECLIDIN/VILANTER 100-62.5-25 MCG/DOSE IH SCH ×2 (09:46→09:50)
[2018-11-02] MEDS: DULOXETINE HCL 30 MG CAPSULE.DR PO SCH ×2 (09:46→09:50)
[2018-11-02] MEDS: BUSPIRONE HCL 10 MG TABLET PO SCH ×3 (09:46→21:28)
--- NOTE | 2018-11-02 10:11 | PDOC PROGRESS REPORT ---
Subjective Progress Note for:: 11/02/18 Subjective:: Patient is currently doing fair Patient's alert awake answering the questions but not fully oriented x3 Denied any chest pain to than any shortness of the breath Dr. Gillette order the MRI and lumbar puncture but unable to contact the family member to get the consent Patient otherwise no complaints Reason For Visit: ALTERED MENTAL STATUS,ENCEPHALOPATHY ? CAUSE Physical Exam Vital Signs: Temp Pulse Resp BP Pulse Ox 98.2 F 54 L 18 153/53 H 98 11/02/18 07:36 11/02/18 07:36 11/02/18 07:36 11/02/18 07:36 11/02/18 07:36 Intake & Output 11/01/18 11/02/18 11/03/18 06:59 06:59 06:59 Intake Total 0 1000 Balance 0 1000 Weight 86.636 kg 71.9 kg General appearance: PRESENT: no acute distress, well-developed, well-nourished Head exam: PRESENT: atraumatic, normocephalic Eye exam: PRESENT: conjunctiva pink, EOMI, PERRLA. ABSENT: scleral icterus Ear exam: PRESENT: normal external ear exam Mouth exam: PRESENT: moist, tongue midline Neck exam: PRESENT: full ROM. ABSENT: carotid bruit, JVD, lymphadenopathy, thyromegaly Respiratory exam: PRESENT: clear to auscultation oh Cardiovascular exam: PRESENT: RRR. ABSENT: diastolic murmur, rubs, systolic murmur Pulses: PRESENT: normal dorsalis pedis pul, +2 pedal pulses bilateral Vascular exam: PRESENT: normal capillary refill GI/Abdominal exam: PRESENT: normal bowel sounds, soft. ABSENT: distended, guarding, mass, organolmegaly, rebound, tenderness Rectal exam: PRESENT: deferred Neurological exam: PRESENT: alert, awake, oriented to person. ABSENT: motor sensory deficit Psychiatric exam: PRESENT: appropriate affect, normal mood. ABSENT: homicidal ideation, suicidal ideation Skin exam: PRESENT: dry, intact, warm. ABSENT: cyanosis, rash Results Laboratory Results: 11/02/18 04:18 11/02/18 04:18 11/02/18 11/02/18 04:18 04:18 WBC 8.6 RBC 4.26 Hgb 10.2 L Hct 33.0 L MCV 78 L MCH 24.0 L MCHC 30.9 L RDW 19.1 H Plt Count 212 Seg Neutrophils % 68.6 Sodium 140.7 Potassium 3.7 Chloride 101 Carbon Dioxide 32 H Anion Gap 8 BUN 13 Creatinine 0.82 Est GFR ( Amer) > 60 Glucose 92 Calcium 9.0 Total Bilirubin 0.6 AST 22 Alkaline Phosphatase 66 Total Protein 6.6 Albumin 3.7 11/01/18 11/01/18 11/01/18 01:26 01:26 09:07 Creatine Kinase 41 Troponin I < 0.012 NT-Pro-B Natriuret Pep 679 592 11/01/18 11/01/18 11/01/18 09:07 09:07 15:00 Creatine Kinase 38 41 Troponin I < 0.012 NT-Pro-B Natriuret Pep 11/01/18 11/01/18 11/01/18 15:00 21:24 21:24 Creatine Kinase 38 Troponin I < 0.012 0.013 NT-Pro-B Natriuret Pep Impressions: Chest X-Ray 10/31/18 23:20 IMPRESSION: 1. Cardiomegaly with mild pulmonary vascular congestion. 2. No focal acute infiltrates. Head CT 10/31/18 23:23 IMPRESSION: No acute intracranial findings. Assessment & Plan - Diagnosis (1) Altered mental status Qualifiers: Altered mental status type: unspecified Qualified Code(s): R41.82 - Altered mental status, unspecified Is this a current diagnosis for this admission?: Yes (2) Encephalopathy, unspecified Is this a current diagnosis for this admission?: Yes (3) Hypothyroidism Qualifiers: Hypothyroidism type: other Qualified Code(s): E03.8 - Other specified hypothyroidism Is this a current diagnosis for this admission?: Yes (4) Chronic obstructive pulmonary disease (COPD) Qualifiers: COPD type: unspecified COPD Qualified Code(s): J44.9 - Chronic obstructive pulmonary disease, unspecified Is this a current diagnosis for this admission?: Yes (5) Congestive heart failure Qualifiers: Heart failure type: unspecified Heart failure chronicity: unspecified Qualified Code(s): I50.9 - Heart failure, unspecified Is this a current diagnosis for this admission?: Yes (6) Type 2 diabetes mellitus Qualifiers: Diabetes mellitus [employer] insulin use: without [employer] use Diabetes mellitus complication status: with neurologic complications Diabetes mellitus complication detail: with polyneuropathy Qualified Code(s): E11.42 - Type 2 diabetes mellitus with diabetic polyneuropathy Is this a current diagnosis for this admission?: Yes - Time Time Spent with patient: 15-24 minutes Medications reviewed and adjusted accordingly: Yes Anticipated discharge: Other Within: Other - Plan Summary Plan Summary: Patient is currently stable Will refer to the workforce planner to try to contact the family member to get the consent to get the other test still pending to evaluate I do not think sites any emergency to do right away
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
--- NOTE | 2018-11-02 13:26 | RADIOLOGY REPORT (SQ) ---
EXAM DESCRIPTION: CTA HEAD; CTA NECK COMPLETED DATE/TIME: 11/02/2018 12:59 pm REASON FOR STUDY: rule out stroke COMPARISON: Chest film 11/01/2018 CT brain 11/01/2018 TECHNIQUE: Post IV contrast scanning, thin section axial imaging through the neck to evaluate the ar terial structures. Source and MIP images are saved and reviewed on PACS. Post IV contrast scanning, thin section axial imaging through the brain to evaluate the arterial stru ctures. Source and MIP images are saved and reviewed on PACS. Advanced 3D imaging as volume-rendering, MIPs, SSD performed? yes All CT scanners at this facility use dose modulation, iterative reconstruction, and/or weight based d osing when appropriate to reduce radiation dose to as low as reasonably achievable (ALARA). [facility]: Dose Right [facility]: CareDose [facility]: Dose Right [facility]: Teradose 4D [facility]: [employer] CONTRAST TYPE AND DOSE: 75 mL of IV Omnipaque 350- low osmolar. RENAL FUNCTION: Creatinine 0.8 LIMITATIONS: None. FINDINGS: CT ANGIO NECK: ARCH AND GREAT VESSELS: No stenosis of the brachiocephalic artery, left common carotid artery origin , or proximal left subclavian artery. No thoracic aortic arch dissection RIGHT CAROTID SYSTEM: Right cervical common carotid artery is widely patent. Calcification at the r ight carotid bifurcation with less than 50% stenosis proximal right ICA. Remainder of the right inte rnal carotid artery in the neck is otherwise unremarkable. RIGHT VERTEBRAL ARTERY: Patent, codominant. LEFT CAROTID SYSTEM: Left cervical common carotid artery is widely patent. Calcifications left cerrato tid bifurcation with less than 50% stenosis proximal left ICA. Remainder of the left internal caroti d artery in the neck is otherwise unremarkable. LEFT VERTEBRAL ARTERY: Patent, codominant. NECK SOFT TISSUES AND OTHER STRUCTURES: No neck masses or adenopathy. CT ANGIO EYAK OF BARAKAT: EYAK OF [place]: Right and left internal carotid artery is at the skullbase, parasellar, para clinoi d segments are widely patent. Patent bilateral anterior and middle cerebral arteries. On the right side, a 3 mm MCA trifurcation unruptured aneurysm is present on axial image 98 and sagittal image 38. No other cahto of [place] aneurysm is suspected from today's CT angio. POSTERIOR CIRCULATION: The distal vertebral arteries are patent. Basilar artery widely patent. No v ertebrobasilar aneurysm. BRAIN: No gross enhancing lesions as visualized. The superior cerebral hemispheres are not included in the field of view. BONES: Intact as visualized. SINUSES: No fluid or mucosal thickening. OTHER: No other significant finding. 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 TECHNICAL DOCUMENTATION: JOB ID: [id number] Quality ID # [id number]: Final reports with documentation of one or more dose reduction techniques (e.g., Au tomated exposure control, adjustment of the mA and/or kV according to patient size, use of iterative reconstruction technique) 2010 [employer]- All Rights Reserved Reading location - IP/workstation name: [email or web address]
--- NOTE | 2018-11-02 13:26 | RADIOLOGY REPORT (SQ) ---
EXAM DESCRIPTION: CTA HEAD; CTA NECK COMPLETED DATE/TIME: 11/02/2018 12:59 pm REASON FOR STUDY: rule out stroke COMPARISON: Chest film 11/01/2018 CT brain 11/01/2018 TECHNIQUE: Post IV contrast scanning, thin section axial imaging through the neck to evaluate the ar terial structures. Source and MIP images are saved and reviewed on PACS. Post IV contrast scanning, thin section axial imaging through the brain to evaluate the arterial stru ctures. Source and MIP images are saved and reviewed on PACS. Advanced 3D imaging as volume-rendering, MIPs, SSD performed? yes All CT scanners at this facility use dose modulation, iterative reconstruction, and/or weight based d osing when appropriate to reduce radiation dose to as low as reasonably achievable (ALARA). [facility]: Dose Right [facility]: CareDose [facility]: Dose Right [facility]: Teradose 4D [facility]: [employer] CONTRAST TYPE AND DOSE: 75 mL of IV Omnipaque 350- low osmolar. RENAL FUNCTION: Creatinine 0.8 LIMITATIONS: None. FINDINGS: CT ANGIO NECK: ARCH AND GREAT VESSELS: No stenosis of the brachiocephalic artery, left common carotid artery origin , or proximal left subclavian artery. No thoracic aortic arch dissection RIGHT CAROTID SYSTEM: Right cervical common carotid artery is widely patent. Calcification at the r ight carotid bifurcation with less than 50% stenosis proximal right ICA. Remainder of the right inte rnal carotid artery in the neck is otherwise unremarkable. RIGHT VERTEBRAL ARTERY: Patent, codominant. LEFT CAROTID SYSTEM: Left cervical common carotid artery is widely patent. Calcifications left cerrato tid bifurcation with less than 50% stenosis proximal left ICA. Remainder of the left internal caroti d artery in the neck is otherwise unremarkable. LEFT VERTEBRAL ARTERY: Patent, codominant. NECK SOFT TISSUES AND OTHER STRUCTURES: No neck masses or adenopathy. CT ANGIO [place]: [place]: Right and left internal carotid artery is at the skullbase, parasellar, para clinoi d segments are widely patent. Patent bilateral anterior and middle cerebral arteries. On the right side, a 3 mm MCA trifurcation unruptured aneurysm is present on axial image 98 and sagittal image 38. No other [place] aneurysm is suspected from today's CT angio. POSTERIOR CIRCULATION: The distal vertebral arteries are patent. Basilar artery widely patent. No v ertebrobasilar aneurysm. BRAIN: No gross enhancing lesions as visualized. The superior cerebral hemispheres are not included in the field of view. BONES: Intact as visualized. SINUSES: No fluid or mucosal thickening. OTHER: No other significant finding. 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 TECHNICAL DOCUMENTATION: JOB ID: [id number] Quality ID # [id number]: Final reports with documentation of one or more dose reduction techniques (e.g., Au tomated exposure control, adjustment of the mA and/or kV according to patient size, use of iterative reconstruction technique) 2010 [employer]- All Rights Reserved Reading location - IP/workstation name: [email or web address]
[2018-11-02] MEDS ORDERED: DEXTROSE 40% GEL 15 GM TUBE X 2 PO PRN (13:30)
[2018-11-02] MEDS ORDERED: DEXTROSE 50%-WATER SYRINGE 12.5 GM/25 ML DOSE IV PRN (13:30)
[2018-11-02] MEDS ORDERED: GLUCAGON,HUMAN RECOMB 1 MG INJ IM PRN (13:30)
[2018-11-02] MEDS ORDERED: DEXTROSE 50%-WATER SYRINGE 25 GM/50 ML DOSE IV PRN (13:30)
[2018-11-02] MEDS ORDERED: DEXTROSE 40% GEL 15 GM TUBE PO PRN (13:30)
[2018-11-02] MEDS: ASPIRIN 81 MG TABLET, ENT COATED PO ONE ×2 (14:00→14:04)
[2018-11-02] MEDS ORDERED: INSULIN LISPRO 100 UNIT/ML 3 ML VIAL SUBCUT SCH (16:00)
[2018-11-02] MEDS: NORMAL SALINE 1000 ML 1,000 ML IV PRN (16:01)
[2018-11-02 16:43] LABS: HEMATOCRIT 32.7 % (36.0-47.0); HEMOGLOBIN 10.1 g/dL (12.0-15.5); MEAN CORPUSCULAR HGB CONC 31.1 g/dL (32.0-36.0); MEAN CORPUSCULAR VOLUME 77 fl (80-97); PLATELET COUNT 214 10^3/uL (150-450); RED BLOOD COUNT 4.23 10^6/uL (3.72-5.28); RED CELL DISTRIBUTION WIDTH 19.1 % (11.5-14.0); WHITE BLOOD COUNT 9.8 10^3/uL (4.0-10.5)
[2018-11-02 16:56] LABS: INTERNATIONAL RATION (INR) 1.08
[2018-11-02 16:57] LABS: PARTIAL THROMBOPLASTIN TIME 29.4 SEC (23.5-35.8)
[2018-11-02 17:05] LABS: ALBUMIN 3.9 g/dL (3.5-5.0); ALKALINE PHOSPHATASE 65 U/L (38-126); ANION GAP 9 (5-19); ASPARTATE AMINO TRANSFERASE 23 U/L (14-36); BILIRUBIN,DIRECT 0.1 mg/dL (0.0-0.4); BILIRUBIN,TOTAL 0.4 mg/dL (0.2-1.3); BLOOD UREA NITROGEN 15 mg/dL (7-20); CALCIUM 9.2 mg/dL (8.4-10.2); CARBON DIOXIDE 29 mmol/L (22-30); CHLORIDE 102 mmol/L (98-107); CREATINE KINASE 96 U/L (30-135); GLUCOSE 75 mg/dL (75-110); POTASSIUM 3.6 mmol/L (3.6-5.0); TOTAL PROTEIN 6.8 g/dL (6.3-8.2)
[2018-11-02 17:17] LABS: CREATINE KINASE MB 1.14 ng/mL (<4.55); TROPONIN I 0.021 ng/mL
[2018-11-02] MEDS: ATORVASTATIN CALCIUM 40 MG TABLET PO SCH (21:28)
[2018-11-02] MEDS: INSULIN GLARGINE,HUM.REC.ANLOG 1,000 UNIT/10 ML VIAL SUBCUT SCH (22:08)
--- NOTE | 2018-11-02 22:11 | EKG REPORT ---
SEVERITY:- ABNORMAL ECG - SINUS RHYTHM ABNORMAL T, CONSIDER ISCHEMIA, DIFFUSE LEADS : Confirmed by: Zeeshan Castaneda MD 02-Nov-2018 22:10:39
[2018-11-02 23:06] LABS: CREATINE KINASE MB 1.15 ng/mL (<4.55); TROPONIN I 0.02 ng/mL
[2018-11-03] MEDS: INSULIN LISPRO 100 UNIT/ML 3 ML VIAL SUBCUT SCH ×4 (00:06→18:49)
[2018-11-03 04:18] LABS: ABSOLUTE BASOPHILS # (AUTO) 0.1 10^3/uL (0.0-0.2); ABSOLUTE LYMPHOCYTES (AUTO) 1.3 10^3/uL (0.5-4.7); ABSOLUTE MONOCYTES (AUTO) 0.8 10^3/uL (0.1-1.4); BASOPHILS % (AUTO) 0.6 % (0-2); EOSINOPHILS % (AUTO) 0.3 % (0-6); HEMATOCRIT 34.9 % (36.0-47.0); HEMOGLOBIN 10.8 g/dL (12.0-15.5); LYMPHOCYTES % (AUTO) 12.9 % (13-45); MEAN CORPUSCULAR HEMOGLOBIN 23.8 pg (27.0-33.4); MEAN CORPUSCULAR VOLUME 77 fl (80-97); MONOCYTES % (AUTO) 7.5 % (3-13); PLATELET COUNT 193 10^3/uL (150-450); RED BLOOD COUNT 4.54 10^6/uL (3.72-5.28); RED CELL DISTRIBUTION WIDTH 18.5 % (11.5-14.0); SEGMENTED NEUTROPHILS % (AUTO) 78.7 % (42-78); TOTAL CELLS COUNTED % (AUTO) 100 %; WHITE BLOOD COUNT 10.2 10^3/uL (4.0-10.5)
[2018-11-03 04:38] LABS: ALBUMIN 3.9 g/dL (3.5-5.0); ALKALINE PHOSPHATASE 71 U/L (38-126); ANION GAP 11 (5-19); ASPARTATE AMINO TRANSFERASE 25 U/L (14-36); BILIRUBIN,DIRECT 0.2 mg/dL (0.0-0.4); BILIRUBIN,TOTAL 0.5 mg/dL (0.2-1.3); BLOOD UREA NITROGEN 9 mg/dL (7-20); CARBON DIOXIDE 28 mmol/L (22-30); CHLORIDE 99 mmol/L (98-107); CREATINE KINASE 60 U/L (30-135); GLUCOSE 124 mg/dL (75-110); POTASSIUM 3.7 mmol/L (3.6-5.0); TOTAL PROTEIN 6.6 g/dL (6.3-8.2)
[2018-11-03 04:48] LABS: CREATINE KINASE MB 0.71 ng/mL (<4.55); TROPONIN I 0.025 ng/mL
[2018-11-03] MEDS: LEVOTHYROXINE SODIUM 0.05 MG TABLET PO SCH (05:30)
[2018-11-03] MEDS: LEVOTHYROXINE SODIUM 0.1 MG TABLET PO SCH (05:30)
--- NOTE | 2018-11-03 08:12 | EKG REPORT ---
SEVERITY:- ABNORMAL ECG - SINUS RHYTHM ABNORMAL T, CONSIDER ISCHEMIA, DIFFUSE LEADS : Confirmed by: Zeeshan Castaneda MD 03-Nov-2018 08:11:08
--- NOTE | 2018-11-03 09:52 | PDOC PROGRESS REPORT ---
Subjective Progress Note for:: 11/03/18 Subjective:: Patient is alert awake but still confused Patient's most likely cerebellar stroke insert of the events with the slurred speech and right-sided neglected Patient CT angiogram of the head and neck did not show any big clots Patients move all 4 extremity without any problems Patient still have a difficult challenge to p.o. intake Still very difficult to contact the family member several try by all the hospital resources unable to contact any family member Patient's need MRI Reason For Visit: ALTERED MENTAL STATUS,ENCEPHALOPATHY ? CAUSE Physical Exam Vital Signs: Temp Pulse Resp BP Pulse Ox 97.6 F 63 18 151/64 H 98 11/03/18 07:52 11/03/18 08:00 11/03/18 08:00 11/03/18 08:00 11/03/18 08:00 Intake & Output 11/02/18 11/03/18 11/04/18 06:59 06:59 06:59 Intake Total 0 1600 Output Total 350 Balance 0 1250 Weight 71.9 kg 73 kg General appearance: PRESENT: no acute distress, well-developed, well-nourished Head exam: PRESENT: atraumatic, normocephalic Eye exam: PRESENT: conjunctiva pink, EOMI, PERRLA. ABSENT: scleral icterus Ear exam: PRESENT: normal external ear exam Mouth exam: PRESENT: moist, tongue midline Neck exam: PRESENT: full ROM. ABSENT: carotid bruit, JVD, lymphadenopathy, thyromegaly Respiratory exam: PRESENT: clear to auscultation oh Cardiovascular exam: PRESENT: RRR. ABSENT: diastolic murmur, rubs, systolic murmur Vascular exam: PRESENT: normal capillary refill GI/Abdominal exam: PRESENT: normal bowel sounds, soft. ABSENT: distended, guarding, mass, organolmegaly, rebound, tenderness Rectal exam: PRESENT: deferred Neurological exam: PRESENT: alert, altered, awake, reflexes normal. ABSENT: mo tor sensory deficit Additional comments: She is moving all 4 extremities Psychiatric exam: PRESENT: appropriate affect, normal mood. ABSENT: homicidal ideation, suicidal ideation Skin exam: PRESENT: dry, intact, warm. ABSENT: cyanosis, rash Results Laboratory Results: 11/03/18 03:56 11/03/18 03:56 11/02/18 11/02/18 11/03/18 16:38 16:38 03:56 WBC 9.8 10.2 RBC 4.23 4.54 Hgb 10.1 L 10.8 L Hct 32.7 L 34.9 L MCV 77 L 77 L MCH 24.0 L 23.8 L MCHC 31.1 L 31.0 L RDW 19.1 H 18.5 H Plt Count 214 193 Seg Neutrophils % 78.7 H Sodium 139.7 Potassium 3.6 Chloride 102 Carbon Dioxide 29 Anion Gap 9 BUN 15 Creatinine 0.93 Est GFR ( Amer) > 60 Glucose 75 Calcium 9.2 Total Bilirubin 0.4 AST 23 Alkaline Phosphatase 65 Total Protein 6.8 Albumin 3.9 11/03/18 03:56 WBC RBC Hgb Hct MCV MCH MCHC RDW Plt Count Seg Neutrophils % Sodium 137.6 Potassium 3.7 Chloride 99 Carbon Dioxide 28 Anion Gap 11 BUN 9 Creatinine 0.76 Est GFR ( Amer) > 60 Glucose 124 H Calcium 9.0 Total Bilirubin 0.5 AST 25 Alkaline Phosphatase 71 Total Protein 6.6 Albumin 3.9 11/01/18 11/01/18 11/01/18 01:26 01:26 09:07 Creatine Kinase 41 CK-MB (CK-2) Troponin I < 0.012 NT-Pro-B Natriuret Pep 679 592 11/01/18 11/01/18 11/01/18 09:07 09:07 15:00 Creatine Kinase 38 41 CK-MB (CK-2) Troponin I < 0.012 NT-Pro-B Natriuret Pep 11/01/18 11/01/18 11/01/18 15:00 21:24 21:24 Creatine Kinase 38 CK-MB (CK-2) Troponin I < 0.012 0.013 NT-Pro-B Natriuret Pep 11/02/18 11/02/18 11/02/18 16:38 16:38 22:15 Creatine Kinase 96 95 CK-MB (CK-2) 1.14 Troponin I 0.021 NT-Pro-B Natriuret Pep 318 11/02/18 11/03/18 11/03/18 22:15 03:56 03:56 Creatine Kinase 60 CK-MB (CK-2) 1.15 0.71 Troponin I 0.020 0.025 NT-Pro-B Natriuret Pep Impressions: Chest X-Ray 10/31/18 23:20 IMPRESSION: 1. Cardiomegaly with mild pulmonary vascular congestion. 2. No focal acute infiltrates. Head CT 10/31/18 23:23 IMPRESSION: No acute intracranial findings. 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 Assessment & Plan - Diagnosis (1) Altered mental status Qualifiers: Altered mental status type: unspecified Qualified Code(s): R41.82 - Altered mental status, unspecified Is this a current diagnosis for this admission?: Yes (2) Encephalopathy, unspecified Is this a current diagnosis for this admission?: Yes (3) Hypothyroidism Qualifiers: Hypothyroidism type: other Qualified Code(s): E03.8 - Other specified hypothyroidism Is this a current diagnosis for this admission?: Yes (4) Chronic obstructive pulmonary disease (COPD) Qualifiers: COPD type: unspecified COPD Qualified Code(s): J44.9 - Chronic obstructive pulmonary disease, unspecified Is this a current diagnosis for this admission?: Yes (5) Congestive heart failure Qualifiers: Heart failure type: unspecified Heart failure chronicity: unspecified Qualified Code(s): I50.9 - Heart failure, unspecified Is this a current diagnosis for this admission?: Yes (6) Type 2 diabetes mellitus Qualifiers: Diabetes mellitus snf insulin use: without snf use Diabetes rosio litus complication status: with neurologic complications Diabetes mellitus complication detail: with polyneuropathy Qualified Code(s): E11.42 - Type 2 diabetes mellitus with diabetic polyneuropathy Is this a current diagnosis for this admission?: Yes (7) Acute cerebrovascular accident Is this a current diagnosis for this admission?: Yes Plan: Most likely patient have a cerebellar stroke Possible we will get the MRI of the head Otherwise we will repeat the CT scan Will get the carotid Doppler Echocardiogram Continues to aspirin 325 mg suppository until the patient start taking the p.o. Overall poor prognosis Will consult the APS service for the family issues to track down
[2018-11-03] MEDS: CLOPIDOGREL BISULFATE 75 MG TABLET PO SCH ×2 (10:00→10:07)
[2018-11-03] MEDS: FLUTICASONE/UMECLIDIN/VILANTER 100-62.5-25 MCG/DOSE IH SCH (10:00)
[2018-11-03] MEDS: BUSPIRONE HCL 10 MG TABLET PO SCH ×3 (10:00→21:08)
[2018-11-03] MEDS: SITAGLIPTIN PHOSPHATE 50 MG TABLET PO SCH (10:00)
[2018-11-03] MEDS: DULOXETINE HCL 30 MG CAPSULE.DR PO SCH ×2 (10:00→10:08)
[2018-11-03] MEDS: ENOXAPARIN SODIUM INJ 40 MG/0.4 ML DISP.SYRIN SUBCUT SCH (10:08)
[2018-11-03 10:23] LABS: CREATINE KINASE MB 0.55 ng/mL (<4.55); TROPONIN I 0.024 ng/mL
[2018-11-03] MEDS: DEXTROSE 5%-WATER 1000 ML 1,000 ML IV PRN (10:29)
[2018-11-03] MEDS: ASPIRIN 300 MG SUPP, RECTAL PR SCH (12:54)
--- NOTE | 2018-11-03 15:01 | RADIOLOGY REPORT (SQ) ---
EXAM DESCRIPTION: MRI HEAD WITHOUT COMPLETED DATE/TIME: 11/03/2018 2:49 pm REASON FOR STUDY: Altered mental status COMPARISON: CT brain 11/01/2018 CT angio head and neck 11/02/2018 TECHNIQUE: Multiplanar imaging includes non-contrasted T1, T2, FLAIR, and diffusion with ADC map seq uences. Images stored on PACS. LIMITATIONS: Motion artifact throughout study FINDINGS: ANATOMY: No developmental anomalies. Normal vascular flow voids. Pituitary fossa normal. CSF SPACES: Normal in size and contour. No hemorrhage. CEREBRUM: No MR evidence of acute ischemic change, acute intracranial hemorrhage, mass effect, or mid line shift. Moderate diffuse bifrontal and biparietal increased FLAIR/ T2 signal in the white matter from small vessel ischemic change. POSTERIOR FOSSA: Chronic Small vessel ischemic change in the mid sergo. No hemorrhage. No edema, gely s or mass effect. Internal auditory canals, cerebello-pontine angles, mastoids normal. DIFFUSION IMAGING: Negative for acute or sub-acute infarction. ORBITS: No masses. Globes normal. PARANASAL SINUSES: Minimal fluid left maxillary sinus OTHER: 9 mm cyst posterior right superficial lobe parotid gland IMPRESSION: Moderate chronic small vessel ischemic change. No acute findings EVIDENCE OF ACUTE STROKE: NO. TECHNICAL DOCUMENTATION: JOB ID: [id number] [email or web address]- All Rights Reserved Reading location - IP/workstation name: [email or web address]
[2018-11-03] MEDS: ATORVASTATIN CALCIUM 40 MG TABLET PO SCH (21:08)
[2018-11-03] MEDS: INSULIN GLARGINE,HUM.REC.ANLOG 1,000 UNIT/10 ML VIAL SUBCUT SCH (21:37)
[2018-11-04] MEDS: INSULIN LISPRO 100 UNIT/ML 3 ML VIAL SUBCUT SCH ×4 (00:08→17:55)
[2018-11-04] MEDS ORDERED: LORAZEPAM INJ 2 MG/1 ML VIAL IV PRN (04:23)
--- NOTE | 2018-11-04 04:59 | RADIOLOGY REPORT (SQ) ---
CLINICAL HISTORY: Seizure/possible aspiration COMPARISON: November 01, 2018. TECHNIQUE: XR CHEST 1 VIEW 11/04/2018 12:00 AM CDT FINDINGS: The heart is enlarged. There is mild pulmonary edema. There may be trace pleural effusions. There is no pneumothorax. There are no acute osseous findings. IMPRESSION: No change.
[2018-11-04] MEDS ORDERED: CEFTRIAXONE 2 GM/D5W RTU 2 GM/50 ML RTUPB IV ONE (05:00)
[2018-11-04] MEDS: DEXTROSE 5%-WATER 1000 ML 1,000 ML IV PRN ×2 (05:48→05:55)
[2018-11-04] MEDS: LEVOTHYROXINE SODIUM 0.05 MG TABLET PO SCH (05:48)
[2018-11-04] MEDS: LEVOTHYROXINE SODIUM 0.1 MG TABLET PO SCH (05:48)
[2018-11-04 06:21] LABS: ABSOLUTE LYMPHOCYTES (AUTO) 0.8 10^3/uL (0.5-4.7); ABSOLUTE MONOCYTES (AUTO) 0.9 10^3/uL (0.1-1.4); ABSOLUTE NEUT (AUTO) 11.5 10^3/uL (1.7-8.2); BASOPHILS % (AUTO) 0.4 % (0-2); HEMATOCRIT 34.4 % (36.0-47.0); HEMOGLOBIN 10.5 g/dL (12.0-15.5); LYMPHOCYTES % (AUTO) 5.8 % (13-45); MEAN CORPUSCULAR HEMOGLOBIN 23.5 pg (27.0-33.4); MEAN CORPUSCULAR HGB CONC 30.7 g/dL (32.0-36.0); MEAN CORPUSCULAR VOLUME 77 fl (80-97); MONOCYTES % (AUTO) 6.6 % (3-13); PLATELET COUNT 207 10^3/uL (150-450); RED BLOOD COUNT 4.49 10^6/uL (3.72-5.28); RED CELL DISTRIBUTION WIDTH 18.7 % (11.5-14.0); SEGMENTED NEUTROPHILS % (AUTO) 87.2 % (42-78); TOTAL CELLS COUNTED % (AUTO) 100 %; WHITE BLOOD COUNT 13.2 10^3/uL (4.0-10.5)
[2018-11-04 06:37] LABS: ALBUMIN 3.9 g/dL (3.5-5.0); ALKALINE PHOSPHATASE 72 U/L (38-126); ANION GAP 12 (5-19); ASPARTATE AMINO TRANSFERASE 23 U/L (14-36); BILIRUBIN,DIRECT 0.2 mg/dL (0.0-0.4); BILIRUBIN,TOTAL 0.6 mg/dL (0.2-1.3); BLOOD UREA NITROGEN 12 mg/dL (7-20); CALCIUM 8.9 mg/dL (8.4-10.2); CARBON DIOXIDE 29 mmol/L (22-30); CHLORIDE 92 mmol/L (98-107); GLUCOSE 234 mg/dL (75-110); POTASSIUM 3.6 mmol/L (3.6-5.0)
[2018-11-04] MEDS: ENOXAPARIN SODIUM INJ 40 MG/0.4 ML DISP.SYRIN SUBCUT SCH (09:19)
[2018-11-04] MEDS: ASPIRIN 300 MG SUPP, RECTAL PR SCH (09:19)
[2018-11-04] MEDS: FLUTICASONE/UMECLIDIN/VILANTER 100-62.5-25 MCG/DOSE IH SCH (09:19)
[2018-11-04] MEDS: CLOPIDOGREL BISULFATE 75 MG TABLET PO SCH (09:19)
[2018-11-04] MEDS: SITAGLIPTIN PHOSPHATE 50 MG TABLET PO SCH (09:19)
[2018-11-04] MEDS: DULOXETINE HCL 30 MG CAPSULE.DR PO SCH (09:20)
[2018-11-04] MEDS: BUSPIRONE HCL 10 MG TABLET PO SCH ×2 (09:20→21:58)
[2018-11-04] MEDS ORDERED: ACETAMINOPHEN 325 MG SUPP.RECT PR PRN (10:38)
[2018-11-04] MEDS: CEFTRIAXONE 2 GM/D5W RTU 2 GM/50 ML RTUPB IV SCH (17:56)
--- NOTE | 2018-11-04 21:52 | PDOC PROGRESS REPORT ---
Subjective Progress Note for:: 11/04/18 Subjective:: Patient remains poorly responsive, MRI brain did not demonstrate any acute pathology, awaiting lumbar puncture and EEG.She had a fever today Reason For Visit: ALTERED MENTAL STATUS,ENCEPHALOPATHY ? CAUSE Physical Exam Vital Signs: Temp Pulse Resp BP Pulse Ox 99.8 F 66 19 130/54 H 98 11/04/18 19:45 11/04/18 19:45 11/04/18 19:45 11/04/18 19:45 11/04/18 19:45 Intake & Output 11/03/18 11/04/18 11/05/18 06:59 06:59 06:59 Intake Total 1600 972 100 Output Total 350 200 Balance 1250 772 100 Weight 73 kg 74 kg General appearance: PRESENT: no acute distress Eye exam: PRESENT: PERRLA Respiratory exam: PRESENT: clear to auscultation oh Cardiovascular exam: PRESENT: +S1, +S2 GI/Abdominal exam: PRESENT: soft Neurological exam: PRESENT: alert Results Laboratory Results: 11/04/18 05:15 11/04/18 05:15 11/04/18 11/04/18 05:15 05:15 WBC 13.2 H RBC 4.49 Hgb 10.5 L Hct 34.4 L MCV 77 L MCH 23.5 L MCHC 30.7 L RDW 18.7 H Plt Count 207 Seg Neutrophils % 87.2 H Sodium 132.6 L Potassium 3.6 Chloride 92 L Carbon Dioxide 29 Anion Gap 12 BUN 12 Creatinine 0.80 Est GFR ( Amer) > 60 Glucose 234 H Calcium 8.9 Total Bilirubin 0.6 AST 23 Alkaline Phosphatase 72 Total Protein 7.0 Albumin 3.9 11/01/18 01:26 Catheterized Urine Urine Culture - Final [place] Vaginalis 11/01/18 11/01/18 11/01/18 01:26 01:26 09:07 Creatine Kinase 41 CK-MB (CK-2) Troponin I < 0.012 NT-Pro-B Natriuret Pep 679 592 11/01/18 11/01/18 11/01/18 09:07 09:07 15:00 Creatine Kinase 38 41 CK-MB (CK-2) Troponin I < 0.012 NT-Pro-B Natriuret Pep 11/01/18 11/01/18 11/01/18 15:00 21:24 21:24 Creatine Kinase 38 CK-MB (CK-2) Troponin I < 0.012 0.013 NT-Pro-B Natriuret Pep 11/02/18 11/02/18 11/02/18 16:38 16:38 22:15 Creatine Kinase 96 95 CK-MB (CK-2) 1.14 Troponin I 0.021 NT-Pro-B Natriuret Pep 318 11/02/18 11/03/18 11/03/18 22:15 03:56 03:56 Creatine Kinase 60 CK-MB (CK-2) 1.15 0.71 Troponin I 0.020 0.025 NT-Pro-B Natriuret Pep 11/03/18 11/03/18 09:46 09:46 Creatine Kinase 45 CK-MB (CK-2) 0.55 Troponin I 0.024 NT-Pro-B Natriuret Pep Impressions: Head CT 10/31/18 23:23 IMPRESSION: No acute intracranial findings. Head CTA 11/02/18 00:00 IMPRESSION: Bilateral carotid bifurcation calcifications with less than 50% diameter stenosis [place] stenosis Incidental finding of a 3 mm unruptured right MCA trifurcation intracranial aneurysm. Neck CTA 11/02/18 00:00 IMPRESSION: Bilateral carotid bifurcation calcifications with less than 50% diameter stenosis [place] stenosis Incidental finding of a 3 mm unruptured right MCA trifurcation intracranial aneurysm. Head MRI 11/03/18 00:00 IMPRESSION: Moderate chronic small vessel ischemic change. No acute findings EVIDENCE OF ACUTE STROKE: NO. Chest X-Ray 11/04/18 00:00 IMPRESSION: No change. Assessment & Plan - Diagnosis (1) Encephalopathy, unspecified Is this a current diagnosis for this admission?: Yes Plan: EEG ,Lumbar puncture pending (2) Fever Qualifiers: Fever type: unspecified Qualified Code(s): R50.9 - Fever, unspecified Is this a current diagnosis for this admission?: Yes Plan: The etiology is not known, panculture, start empiric treatment with IV antibiotic
[2018-11-04] MEDS: INSULIN GLARGINE,HUM.REC.ANLOG 1,000 UNIT/10 ML VIAL SUBCUT SCH (21:58)
[2018-11-04] MEDS: ATORVASTATIN CALCIUM 40 MG TABLET PO SCH (21:58)
[2018-11-05] MEDS: INSULIN LISPRO 100 UNIT/ML 3 ML VIAL SUBCUT SCH ×4 (00:07→18:24)
[2018-11-05] MEDS: LEVOTHYROXINE SODIUM 0.1 MG TABLET PO SCH (05:11)
[2018-11-05] MEDS: LEVOTHYROXINE SODIUM 0.05 MG TABLET PO SCH (05:11)
[2018-11-05] MEDS: CEFTRIAXONE 2 GM/D5W RTU 2 GM/50 ML RTUPB IV SCH ×2 (05:54→17:16)
[2018-11-05] MEDS: SITAGLIPTIN PHOSPHATE 50 MG TABLET PO SCH (09:01)
[2018-11-05] MEDS: DULOXETINE HCL 30 MG CAPSULE.DR PO SCH (09:01)
[2018-11-05] MEDS: BUSPIRONE HCL 10 MG TABLET PO SCH ×2 (09:01→21:21)
[2018-11-05] MEDS: FLUTICASONE/UMECLIDIN/VILANTER 100-62.5-25 MCG/DOSE IH SCH (09:02)
[2018-11-05 15:25] LABS: ABSOLUTE BASOPHILS # (AUTO) 0.1 10^3/uL (0.0-0.2); ABSOLUTE EOSINOPHILS # (AUTO) 0.1 10^3/uL (0.0-0.6); ABSOLUTE LYMPHOCYTES (AUTO) 0.9 10^3/uL (0.5-4.7); ABSOLUTE MONOCYTES (AUTO) 0.8 10^3/uL (0.1-1.4); ABSOLUTE NEUT (AUTO) 8.8 10^3/uL (1.7-8.2); BASOPHILS % (AUTO) 0.6 % (0-2); EOSINOPHILS % (AUTO) 0.6 % (0-6); HEMATOCRIT 33.3 % (36.0-47.0); HEMOGLOBIN 10.4 g/dL (12.0-15.5); LYMPHOCYTES % (AUTO) 8.5 % (13-45); MEAN CORPUSCULAR HEMOGLOBIN 23.9 pg (27.0-33.4); MEAN CORPUSCULAR HGB CONC 31.3 g/dL (32.0-36.0); MEAN CORPUSCULAR VOLUME 76 fl (80-97); MONOCYTES % (AUTO) 7.5 % (3-13); PLATELET COUNT 158 10^3/uL (150-450); RED BLOOD COUNT 4.35 10^6/uL (3.72-5.28); RED CELL DISTRIBUTION WIDTH 18.7 % (11.5-14.0); SEGMENTED NEUTROPHILS % (AUTO) 82.8 % (42-78); TOTAL CELLS COUNTED % (AUTO) 100 %; WHITE BLOOD COUNT 10.6 10^3/uL (4.0-10.5)
[2018-11-05 15:50] LABS: ALBUMIN 3.7 g/dL (3.5-5.0); ALKALINE PHOSPHATASE 58 U/L (38-126); ANION GAP 9 (5-19); ASPARTATE AMINO TRANSFERASE 19 U/L (14-36); BILIRUBIN,DIRECT 0.2 mg/dL (0.0-0.4); BILIRUBIN,TOTAL 0.4 mg/dL (0.2-1.3); BLOOD UREA NITROGEN 16 mg/dL (7-20); CALCIUM 8.6 mg/dL (8.4-10.2); CARBON DIOXIDE 35 mmol/L (22-30); CHLORIDE 88 mmol/L (98-107); GLUCOSE 174 mg/dL (75-110); POTASSIUM 3.3 mmol/L (3.6-5.0); TOTAL PROTEIN 6.6 g/dL (6.3-8.2)
--- NOTE | 2018-11-05 20:18 | NEURO WORKBENCH EEG REPORT ---
EEG Report Patient: Samantha Snowden ID: [id number] Referring Doctor: Gian Gillette DOS: 11/05/2018 Medications: aspirin, Lipitor, buspar, Rocephin, Cymbalta, trelegy, insulin, Synthroid, Januvia, ativan History This is a 73 year old right handed woman admitted with altered mental status, encephalopathy with a history of CHF, hypertension, COPD, GERD, Type 2 Diabetes, depression, hypothyroidism, left wrist surgery, pneumonia, abdominal hernia, cholecystectomy, peripheral vascular disease. This EEG was requested for altered mental status. EEG Interpretation This EEG was recorded in the awake and minimal drowsy states only. The awake EEG is characterized by a poorly organized background without a noted posterior dominant rhythm. The remainder of the background consisted of a mix of theta and delta activity. There was significant muscle artifact throughout the recording, more prominent on the right side. There was continuous polymorphic delta slowing (CPDS) on the left with relative suppression on the right. However the muscle artifact impaired interpretation particularly on the right. There was frontal intermittent rhythmic delta activity (FIRDA). Minimal drowsiness is characterized by slowing of the background rhythms. Photic stimulation resulted in no significant changes. There were no epileptiform abnormalities. The EKG showed periods of an irregular rhythm. EEG Classification Asymmetry, suppression right, CPDS left Artifact impaired interpretation Generalized background slowing FIRDA EKG irregular rhythm EEG Impression This EEG is abnormal. It is consistent with diffuse cerebral dysfunction. The asymmetry is suggestive of a structural lesion, likely on the right. However artifact impaired interpretation. Correlation with neuroimaging would be of interest. The EKG may require further investigation. INTERPRETING NEUROLOGIST: Yamile Pruitt MD, FRCPC Board Certified in Neurology, with special qualification in Child Neurology, and in Clinical Neurophysiology [facility]
--- NOTE | 2018-11-05 20:21 | PDOC PROGRESS REPORT ---
Subjective Progress Note for:: 11/05/18 Subjective:: Patient seen by the bedside, she is fully alert, oriented to time place and person, yesterday she was virtually unresponsive. She is empirically on IV antibiotic, ceftriaxone, she was supposed to have a lumbar puncture, this was not done because she took antiplatelet, aspirin, she is scheduled for lumbar puncture the next few days. Patient urine culture grew gram-negative zari, specific bacteria is unknown yet, Reason For Visit: ALTERED MENTAL STATUS,ENCEPHALOPATHY ? CAUSE Physical Exam Vital Signs: Temp Pulse Resp BP Pulse Ox 97.5 F 63 18 113/40 L 92 11/05/18 15:51 11/05/18 20:00 11/05/18 20:00 11/05/18 20:00 11/05/18 20:00 Intake & Output 11/04/18 11/05/18 11/06/18 06:59 06:59 06:59 Intake Total 174 117 6978 Output Total 200 Balance 503 543 1426 Weight 74 kg 75.4 kg General appearance: PRESENT: no acute distress Eye exam: PRESENT: PERRLA Respiratory exam: PRESENT: clear to auscultation oh Cardiovascular exam: PRESENT: +S1, +S2 GI/Abdominal exam: PRESENT: soft Neurological exam: PRESENT: alert Results Laboratory Results: 11/05/18 14:55 11/05/18 14:55 11/05/18 11/05/18 14:55 14:55 WBC 10.6 H RBC 4.35 Hgb 10.4 L Hct 33.3 L MCV 76 L MCH 23.9 L MCHC 31.3 L RDW 18.7 H Plt Count 158 Seg Neutrophils % 82.8 H Sodium 131.6 L Potassium 3.3 L Chloride 88 L Carbon Dioxide 35 H Anion Gap 9 BUN 16 Creatinine 0.87 Est GFR ( Amer) > 60 Glucose 174 H Calcium 8.6 Total Bilirubin 0.4 AST 19 Alkaline Phosphatase 58 Total Protein 6.6 Albumin 3.7 11/01/18 11/01/18 11/01/18 01:26 01:26 09:07 Creatine Kinase 41 CK-MB (CK-2) Troponin I < 0.012 NT-Pro-B Natriuret Pep 679 592 11/01/18 11/01/18 11/01/18 09:07 09:07 15:00 Creatine Kinase 38 41 CK-MB (CK-2) Troponin I < 0.012 NT-Pro-B Natriuret Pep 11/01/18 11/01/18 11/01/18 15:00 21:24 21:24 Creatine Kinase 38 CK-MB (CK-2) Troponin I < 0.012 0.013 NT-Pro-B Natriuret Pep 11/02/18 11/02/18 11/02/18 16:38 16:38 22:15 Creatine Kinase 96 95 CK-MB (CK-2) 1.14 Troponin I 0.021 NT-Pro-B Natriuret Pep 318 11/02/18 11/03/18 11/03/18 22:15 03:56 03:56 Creatine Kinase 60 CK-MB (CK-2) 1.15 0.71 Troponin I 0.020 0.025 NT-Pro-B Natriuret Pep 11/03/18 11/03/18 09:46 09:46 Creatine Kinase 45 CK-MB (CK-2) 0.55 Troponin I 0.024 NT-Pro-B Natriuret Pep Impressions: Head CT 10/31/18 23:23 IMPRESSION: No acute intracranial findings. Head CTA 11/02/18 00:00 IMPRESSION: Bilateral carotid bifurcation calcifications with less than 50% diameter stenosis [place] stenosis Incidental finding of a 3 mm unruptured right MCA trifurcation intracranial aneurysm. Neck CTA 11/02/18 00:00 IMPRESSION: Bilateral carotid bifurcation calcifications with less than 50% diameter stenosis [place] stenosis Incidental finding of a 3 mm unruptured right MCA trifurcation intracranial aneurysm. Head MRI 11/03/18 00:00 IMPRESSION: Moderate chronic small vessel ischemic change. No acute findings EVIDENCE OF ACUTE STROKE: NO. Chest X-Ray 11/04/18 00:00 IMPRESSION: No change. Assessment & Plan - Diagnosis (1) Encephalopathy, unspecified Is this a current diagnosis for this admission?: Yes (2) Fever Qualifiers: Fever type: unspecified Qualified Code(s): R50.9 - Fever, unspecified Is this a current diagnosis for this admission?: Yes (3) Urinary tract infection Qualifiers: Urinary tract infection type: site unspecified Hematuria presence: without hematuria Qualified Code(s): N39.0 - Urinary tract infection, site not specified Is this a current diagnosis for this admission?: Yes Plan: Continue IV antibiotic
[2018-11-05] MEDS: INSULIN GLARGINE,HUM.REC.ANLOG 1,000 UNIT/10 ML VIAL SUBCUT SCH (21:19)
[2018-11-05] MEDS: ATORVASTATIN CALCIUM 40 MG TABLET PO SCH (21:21)
[2018-11-05] MEDS: POTASSI CL 20 MEQ/50 ML RIDER 20 MEQ/50 ML RTUPB IV SCH (21:21)
[2018-11-06] MEDS: INSULIN LISPRO 100 UNIT/ML 3 ML VIAL SUBCUT SCH ×4 (00:57→18:11)
[2018-11-06] MEDS: POTASSI CL 20 MEQ/50 ML RIDER 20 MEQ/50 ML RTUPB IV SCH (02:05)
[2018-11-06] MEDS: LEVOTHYROXINE SODIUM 0.05 MG TABLET PO SCH (05:27)
[2018-11-06] MEDS: LEVOTHYROXINE SODIUM 0.1 MG TABLET PO SCH (05:27)
[2018-11-06] MEDS: CEFTRIAXONE 2 GM/D5W RTU 2 GM/50 ML RTUPB IV SCH ×2 (05:27→18:12)
[2018-11-06] MEDS: DULOXETINE HCL 30 MG CAPSULE.DR PO SCH (09:55)
[2018-11-06] MEDS: FLUTICASONE/UMECLIDIN/VILANTER 100-62.5-25 MCG/DOSE IH SCH (09:55)
[2018-11-06] MEDS: BUSPIRONE HCL 10 MG TABLET PO SCH ×2 (09:55→22:28)
[2018-11-06] MEDS: SITAGLIPTIN PHOSPHATE 50 MG TABLET PO SCH (09:55)
--- NOTE | 2018-11-06 20:13 | PDOC PROGRESS REPORT ---
Subjective Progress Note for:: 11/06/18 Subjective:: Patient seen by the bedside, she continues to make progress a lot, still on intravenous antibiotic empirically, The urine culture grew E. coli sensitive to ceftriaxone, she had EEG done yesterday there was no epileptiform focus identified on EEG Reason For Visit: ALTERED MENTAL STATUS,ENCEPHALOPATHY ? CAUSE Physical Exam Vital Signs: Temp Pulse Resp BP Pulse Ox 98.3 F 70 20 125/51 L 92 11/06/18 16:48 11/06/18 16:48 11/06/18 16:48 11/06/18 16:48 11/06/18 16:48 Intake & Output 11/05/18 11/06/18 11/07/18 06:59 06:59 06:59 Intake Total 100 1200 450 Output Total 1150 400 Balance 100 50 50 Weight 75.4 kg 72.9 kg General appearance: PRESENT: no acute distress Eye exam: PRESENT: PERRLA Respiratory exam: PRESENT: clear to auscultation oh Cardiovascular exam: PRESENT: +S1, +S2 GI/Abdominal exam: PRESENT: soft Neurological exam: PRESENT: alert, CN II-XII grossly intact Results Laboratory Results: 11/05/18 14:55 11/05/18 14:55 11/04/18 10:30 Catheterized Urine Urine Culture - Final Escherichia Coli 11/01/18 03:19 Blood Blood Culture - Final NO GROWTH IN 5 DAYS 11/01/18 02:03 Blood Blood Culture - Final NO GROWTH IN 5 DAYS 11/01/18 11/01/18 11/01/18 01:26 01:26 09:07 Creatine Kinase 41 CK-MB (CK-2) Troponin I < 0.012 NT-Pro-B Natriuret Pep 679 592 11/01/18 11/01/18 11/01/18 09:07 09:07 15:00 Creatine Kinase 38 41 CK-MB (CK-2) Troponin I < 0.012 NT-Pro-B Natriuret Pep 11/01/18 11/01/18 11/01/18 15:00 21:24 21:24 Creatine Kinase 38 CK-MB (CK-2) Troponin I < 0.012 0.013 NT-Pro-B Natriuret Pep 11/02/18 11/02/18 11/02/18 16:38 16:38 22:15 Creatine Kinase 96 95 CK-MB (CK-2) 1.14 Troponin I 0.021 NT-Pro-B Natriuret Pep 318 11/02/18 11/03/18 11/03/18 22:15 03:56 03:56 Creatine Kinase 60 CK-MB (CK-2) 1.15 0.71 Troponin I 0.020 0.025 NT-Pro-B Natriuret Pep 11/03/18 11/03/18 09:46 09:46 Creatine Kinase 45 CK-MB (CK-2) 0.55 Troponin I 0.024 NT-Pro-B Natriuret Pep Impressions: Head CT 10/31/18 23:23 IMPRESSION: No acute intracranial findings. Head CTA 11/02/18 00:00 IMPRESSION: Bilateral carotid bifurcation calcifications with less than 50% diameter stenosis [place] stenosis Incidental finding of a 3 mm unruptured right MCA trifurcation intracranial aneurysm. Neck CTA 11/02/18 00:00 IMPRESSION: Bilateral carotid bifurcation calcifications with less than 50% diameter stenosis [place] stenosis Incidental finding of a 3 mm unruptured right MCA trifurcation intracranial aneurysm. Head MRI 11/03/18 00:00 IMPRESSION: Moderate chronic small vessel ischemic change. No acute findings EVIDENCE OF ACUTE STROKE: NO. Chest X-Ray 11/04/18 00:00 IMPRESSION: No change. Assessment & Plan - Diagnosis (1) Encephalopathy, unspecified Is this a current diagnosis for this admission?: Yes (2) Fever Qualifiers: Fever type: unspecified Qualified Code(s): R50.9 - Fever, unspecified Is this a current diagnosis for this admission?: Yes (3) Urinary tract infection Qualifiers: Urinary tract infection type: site unspecified Hematuria presence: without hematuria Qualified Code(s): N39.0 - Urinary tract infection, site not specified Is this a current diagnosis for this admission?: Yes (4) E. coli UTI Is this a current diagnosis for this admission?: Yes Plan: Continue ceftriaxone
[2018-11-06 21:07] LABS: ABSOLUTE BASOPHILS # (AUTO) 0.1 10^3/uL (0.0-0.2); ABSOLUTE EOSINOPHILS # (AUTO) 0.2 10^3/uL (0.0-0.6); ABSOLUTE LYMPHOCYTES (AUTO) 1.1 10^3/uL (0.5-4.7); ABSOLUTE NEUT (AUTO) 7.4 10^3/uL (1.7-8.2); BASOPHILS % (AUTO) 0.8 % (0-2); EOSINOPHILS % (AUTO) 2.5 % (0-6); HEMATOCRIT 31.8 % (36.0-47.0); HEMOGLOBIN 9.9 g/dL (12.0-15.5); LYMPHOCYTES % (AUTO) 11.1 % (13-45); MEAN CORPUSCULAR HEMOGLOBIN 23.9 pg (27.0-33.4); MEAN CORPUSCULAR HGB CONC 31.3 g/dL (32.0-36.0); MEAN CORPUSCULAR VOLUME 77 fl (80-97); MONOCYTES % (AUTO) 10.1 % (3-13); PLATELET COUNT 151 10^3/uL (150-450); RED BLOOD COUNT 4.15 10^6/uL (3.72-5.28); RED CELL DISTRIBUTION WIDTH 19.1 % (11.5-14.0); SEGMENTED NEUTROPHILS % (AUTO) 75.5 % (42-78); TOTAL CELLS COUNTED % (AUTO) 100 %; WHITE BLOOD COUNT 9.8 10^3/uL (4.0-10.5)
--- NOTE | 2018-11-06 21:12 | XCELERA REPORT ---
[address] [address] Transthoracic Echocardiogram Report Name: GABINO ALEXANDER Age: 73 yrs Gender: Female : 1945 Patient Status: Inpatient Patient Location: [address] [place], [place] [id number] Study Date: 11/05/2018 09:42 AM Height: 64 in Weight: 158 lb BSA: 1.8 m2 Procedure: A two-dimensional transthoracic echocardiogram with color flow and Doppler was performed. The study was technically adequate with some images being suboptimal in quality. Reason For Study: stoke History: CVA. Ordering Physician: KOKI WHITMORE Performed By: Asia Guadalupe Interpretation Summary There is no obvious cardiac source of embolus noted on this transthoracic echocardiogram. Follow-up with a BECCA is suggested if cardiac source is still suspected. The left ventricle is normal in size. There is mild concentric left ventricular hypertrophy. LV EF is > than 60% The left ventricular ejection fraction is within normal limits. Doppler measurements suggest impaired left ventricular relaxation, which is associated with grade I/IV or mild diastolic dysfunction The left ventricular wall motion is normal. There is no thrombus. Cannot assess ASD ,VSD ,or PFO. The right ventricle is not well visualized secondary to technical limitations Right atrium not well visualized secondary to technical limitations The left atrial size is normal. There is no evidence of mitral valve prolapse. There is no vegetation seen on the mitral valve. There is no mitral valve stenosis. There is no mitral regurgitation noted. There is no aortic valvular vegetation. There is aortic sclerosis without aortic stenosis. There is no LVOT obstruction. There is a trace to mild amount of aortic regurgitation There is no tricuspid stenosis. There is a trace amount of tricuspid regurgitation Tricuspid regurgitation jet envelope not well defined to measure RV systolic pressure accurately. The pulmonic valve is not well visualized. There is no pulmonic valvular stenosis. There is no pulmonic valvular regurgitation. The aortic root is not well visualized but is probably normal size. The inferior vena cava appeared small and collapsed with respiration (RAP 0-5 mmHg) There is no pericardial effusion. There is no obvious cardiac source of embolus noted on this transthoracic echocardiogram. Follow-up with a BECCA is suggested if cardiac source is still suspected MMode/2D Measurements & Calculations RVDd: 2.9 cm LVIDd: 4.2 cm FS: 33.6 % Ao root diam: 3.3 cm IVSd: 1.1 cm LVIDs: 2.8 cm EDV(Teich): 78.2 ml Ao root area: 8.6 cm2 LVPWd: 1.2 cm ESV(Teich): 29.1 ml EF(Teich): 62.8 % Doppler Measurements & Calculations MV E max gaby: MV dec slope: Ao V2 max: LV V1 max P.2 cm/sec 257.0 cm/sec2 222.5 cm/sec 4.3 mmHg MV A max gaby: MV dec time: 0.21 sec Ao max PG: LV V1 max: 75.3 cm/sec 19.8 mmHg 104.1 cm/sec MV E/A: 0.73 PA V2 max: 70.4 cm/sec PA max P.0 mmHg Left Ventricle The left ventricle is normal in size. There is mild concentric left ventricular hypertrophy. LV EF is > than 60%. The left ventricular ejection fraction is within normal limits. Doppler measurements suggest impaired left ventricular relaxation, which is associated with grade I/IV or mild diastolic dysfunction. The left ventricular wall motion is normal. There is no thrombus. Cannot assess ASD ,VSD ,or PFO. Right Ventricle The right ventricle is not well visualized secondary to technical limitations. Atria Right atrium not well visualized secondary to technical limitations. The left atrial size is normal. Mitral Valve There is no evidence of mitral valve prolapse. There is no vegetation seen on the mitral valve. There is no mitral valve stenosis. There is no mitral regurgitation noted. Aortic Valve There is no aortic valvular vegetation. There is aortic sclerosis without aortic stenosis. There is no LVOT obstruction. There is a trace to mild amount of aortic regurgitation. Tricuspid Valve There is no tricuspid stenosis. There is a trace amount of tricuspid regurgitation. Tricuspid regurgitation jet envelope not well defined to measure RV systolic pressure accurately. Pulmonic Valve The pulmonic valve is not well visualized. There is no pulmonic valvular stenosis. There is no pulmonic valvular regurgitation. Great Vessels The aortic root is not well visualized but is probably normal size. The inferior vena cava appeared small and collapsed with respiration (RAP 0-5 mmHg). Effusions There is no pericardial effusion. : KOKI WHITMORE Lakshmi
[2018-11-06 21:22] LABS: ALBUMIN 3.4 g/dL (3.5-5.0); ALKALINE PHOSPHATASE 60 U/L (38-126); ANION GAP 9 (5-19); ASPARTATE AMINO TRANSFERASE 19 U/L (14-36); BILIRUBIN,DIRECT 0.3 mg/dL (0.0-0.4); BILIRUBIN,TOTAL 0.3 mg/dL (0.2-1.3); BLOOD UREA NITROGEN 22 mg/dL (7-20); CALCIUM 8.6 mg/dL (8.4-10.2); CARBON DIOXIDE 32 mmol/L (22-30); CHLORIDE 91 mmol/L (98-107); GLUCOSE 141 mg/dL (75-110); POTASSIUM 3.3 mmol/L (3.6-5.0); TOTAL PROTEIN 6.2 g/dL (6.3-8.2)
[2018-11-06] MEDS: ATORVASTATIN CALCIUM 40 MG TABLET PO SCH (22:28)
[2018-11-07] MEDS: INSULIN LISPRO 100 UNIT/ML 3 ML VIAL SUBCUT SCH ×4 (00:20→22:26)
[2018-11-07] MEDS: INSULIN GLARGINE,HUM.REC.ANLOG 1,000 UNIT/10 ML VIAL SUBCUT SCH ×2 (00:32→22:34)
[2018-11-07] MEDS: LEVOTHYROXINE SODIUM 0.1 MG TABLET PO SCH (06:50)
[2018-11-07] MEDS: LEVOTHYROXINE SODIUM 0.05 MG TABLET PO SCH (06:50)
[2018-11-07 07:12] LABS: ABSOLUTE EOSINOPHILS # (AUTO) 0.2 10^3/uL (0.0-0.6); ABSOLUTE MONOCYTES (AUTO) 0.9 10^3/uL (0.1-1.4); ABSOLUTE NEUT (AUTO) 5.7 10^3/uL (1.7-8.2); BASOPHILS % (AUTO) 0.5 % (0-2); EOSINOPHILS % (AUTO) 2.8 % (0-6); HEMATOCRIT 32.7 % (36.0-47.0); HEMOGLOBIN 10.3 g/dL (12.0-15.5); LYMPHOCYTES % (AUTO) 12.6 % (13-45); MEAN CORPUSCULAR HGB CONC 31.5 g/dL (32.0-36.0); MEAN CORPUSCULAR VOLUME 76 fl (80-97); MONOCYTES % (AUTO) 11.3 % (3-13); PLATELET COUNT 147 10^3/uL (150-450); RED CELL DISTRIBUTION WIDTH 19.1 % (11.5-14.0); SEGMENTED NEUTROPHILS % (AUTO) 72.8 % (42-78); TOTAL CELLS COUNTED % (AUTO) 100 %; WHITE BLOOD COUNT 7.9 10^3/uL (4.0-10.5)
[2018-11-07 07:37] LABS: ALBUMIN 3.7 g/dL (3.5-5.0); ALKALINE PHOSPHATASE 63 U/L (38-126); ANION GAP 11 (5-19); ASPARTATE AMINO TRANSFERASE 21 U/L (14-36); BILIRUBIN,DIRECT 0.2 mg/dL (0.0-0.4); BILIRUBIN,TOTAL 0.3 mg/dL (0.2-1.3); BLOOD UREA NITROGEN 19 mg/dL (7-20); CALCIUM 8.9 mg/dL (8.4-10.2); CARBON DIOXIDE 32 mmol/L (22-30); CHLORIDE 93 mmol/L (98-107); GLUCOSE 109 mg/dL (75-110); POTASSIUM 3.5 mmol/L (3.6-5.0); TOTAL PROTEIN 6.6 g/dL (6.3-8.2)
[2018-11-07] MEDS: SITAGLIPTIN PHOSPHATE 50 MG TABLET PO SCH (10:54)
[2018-11-07] MEDS: DULOXETINE HCL 30 MG CAPSULE.DR PO SCH (10:54)
[2018-11-07] MEDS: BUSPIRONE HCL 10 MG TABLET PO SCH ×2 (10:55→22:34)
[2018-11-07] MEDS: FLUTICASONE/UMECLIDIN/VILANTER 100-62.5-25 MCG/DOSE IH SCH (11:04)
[2018-11-07] MEDS: CEFTRIAXONE 1 GM/D5W RTU 1 GM/50 ML RTUPB IV SCH (17:52)
[2018-11-07] MEDS ORDERED: IPRATROPIUM/ALBUTEROL 0.5-2.5 MG/3 ML AMPUL NEB PRN (18:30)
--- NOTE | 2018-11-07 21:01 | PDOC PROGRESS REPORT ---
Subjective Progress Note for:: 11/07/18 Subjective:: Patient seen by the bedside, she has. Of confusion and lucidity, she is very confused today compared to yesterday when she was very lucid, she is also wheezing today Reason For Visit: ALTERED MENTAL STATUS,ENCEPHALOPATHY ? CAUSE Physical Exam Vital Signs: Temp Pulse Resp BP Pulse Ox 97.9 F 77 16 131/56 H 94 11/07/18 16:18 11/07/18 16:18 11/07/18 16:18 11/07/18 16:18 11/07/18 16:18 Intake & Output 11/06/18 11/07/18 11/08/18 06:59 06:59 06:59 Intake Total 1200 450 476 Output Total 1150 1150 550 Balance 50 700 -74 Weight 72.9 kg 72.9 kg General appearance: PRESENT: no acute distress Eye exam: PRESENT: PERRLA Respiratory exam: PRESENT: wheezes Cardiovascular exam: PRESENT: +S1, +S2 GI/Abdominal exam: PRESENT: soft Neurological exam: PRESENT: alert Results Laboratory Results: 11/07/18 06:14 11/07/18 06:14 11/06/18 11/06/18 11/07/18 21:00 21:00 06:14 WBC 9.8 7.9 RBC 4.15 4.30 Hgb 9.9 L 10.3 L Hct 31.8 L 32.7 L MCV 77 L 76 L MCH 23.9 L 24.0 L MCHC 31.3 L 31.5 L RDW 19.1 H 19.1 H Plt Count 151 147 L Seg Neutrophils % 75.5 72.8 Sodium 132.4 L Potassium 3.3 L Chloride 91 L Carbon Dioxide 32 H Anion Gap 9 BUN 22 H Creatinine 1.04 Est GFR ( Amer) > 60 Glucose 141 H Calcium 8.6 Total Bilirubin 0.3 AST 19 Alkaline Phosphatase 60 Total Protein 6.2 L Albumin 3.4 L 11/07/18 06:14 WBC RBC Hgb Hct MCV MCH MCHC RDW Plt Count Seg Neutrophils % Sodium 135.7 L Potassium 3.5 L Chloride 93 L Carbon Dioxide 32 H Anion Gap 11 BUN 19 Creatinine 0.95 Est GFR ( Amer) > 60 Glucose 109 Calcium 8.9 Total Bilirubin 0.3 AST 21 Alkaline Phosphatase 63 Total Protein 6.6 Albumin 3.7 11/01/18 11/01/18 11/01/18 01:26 01:26 09:07 Creatine Kinase 41 CK-MB (CK-2) Troponin I < 0.012 NT-Pro-B Natriuret Pep 679 592 11/01/18 11/01/18 11/01/18 09:07 09:07 15:00 Creatine Kinase 38 41 CK-MB (CK-2) Troponin I < 0.012 NT-Pro-B Natriuret Pep 11/01/18 11/01/18 11/01/18 15:00 21:24 21:24 Creatine Kinase 38 CK-MB (CK-2) Troponin I < 0.012 0.013 NT-Pro-B Natriuret Pep 11/02/18 11/02/18 11/02/18 16:38 16:38 22:15 Creatine Kinase 96 95 CK-MB (CK-2) 1.14 Troponin I 0.021 NT-Pro-B Natriuret Pep 318 11/02/18 11/03/18 11/03/18 22:15 03:56 03:56 Creatine Kinase 60 CK-MB (CK-2) 1.15 0.71 Troponin I 0.020 0.025 NT-Pro-B Natriuret Pep 11/03/18 11/03/18 09:46 09:46 Creatine Kinase 45 CK-MB (CK-2) 0.55 Troponin I 0.024 NT-Pro-B Natriuret Pep Impressions: Head CT 10/31/18 23:23 IMPRESSION: No acute intracranial findings. 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 Head MRI 11/03/18 00:00 IMPRESSION: Moderate chronic small vessel ischemic change. No acute findings EVIDENCE OF ACUTE STROKE: NO. Chest X-Ray 11/04/18 00:00 IMPRESSION: No change. Assessment & Plan - Diagnosis (1) Encephalopathy, unspecified Is this a current diagnosis for this admission?: Yes (2) Fever Qualifiers: Fever type: unspecified Qualified Code(s): R50.9 - Fever, unspecified Is this a current diagnosis for this admission?: Yes (3) Urinary tract infection Qualifiers: Urinary tract infection type: site unspecified Hematuria presence: without hematuria Qualified Code(s): N39.0 - Urinary tract infection, site not specified Is this a current diagnosis for this admission?: Yes (4) E. coli UTI Is this a current diagnosis for this admission?: Yes Plan: Continue antibiotic (5) COPD exacerbation Is this a current diagnosis for this admission?: Yes Plan: Start bronchodilators, DuoNeb
[2018-11-07] MEDS ORDERED: INSULIN LISPRO 100 UNIT/ML 3 ML VIAL SUBCUT SCH (22:00)
[2018-11-07] MEDS: ATORVASTATIN CALCIUM 40 MG TABLET PO SCH (22:34)
[2018-11-08] MEDS: LEVOTHYROXINE SODIUM 0.05 MG TABLET PO SCH (06:17)
[2018-11-08] MEDS: LEVOTHYROXINE SODIUM 0.1 MG TABLET PO SCH (06:17)
[2018-11-08] MEDS: INSULIN LISPRO 100 UNIT/ML 3 ML VIAL SUBCUT SCH ×4 (11:01→22:10)
[2018-11-08] MEDS: FLUTICASONE/UMECLIDIN/VILANTER 100-62.5-25 MCG/DOSE IH SCH (11:36)
[2018-11-08] MEDS: DULOXETINE HCL 30 MG CAPSULE.DR PO SCH (11:36)
[2018-11-08] MEDS: BUSPIRONE HCL 10 MG TABLET PO SCH ×2 (11:36→22:47)
[2018-11-08] MEDS: SITAGLIPTIN PHOSPHATE 50 MG TABLET PO SCH (11:41)
[2018-11-08] MEDS: CEFTRIAXONE 1 GM/D5W RTU 1 GM/50 ML RTUPB IV SCH (17:17)
--- NOTE | 2018-11-08 22:11 | PDOC PROGRESS REPORT ---
Subjective Progress Note for:: 11/08/18 Subjective:: Patient more lucid today, disposition will be a challenge for this patient, patient has daughter is in the prison, she cannot live alone, she has underlying dementia Reason For Visit: ALTERED MENTAL STATUS,ENCEPHALOPATHY ? CAUSE Physical Exam Vital Signs: Temp Pulse Resp BP Pulse Ox 98.2 F 69 16 122/51 L 95 11/08/18 15:18 11/08/18 19:00 11/08/18 15:18 11/08/18 15:18 11/08/18 16:28 Intake & Output 11/07/18 11/08/18 11/09/18 06:59 06:59 06:59 Intake Total 450 476 340 Output Total 1150 975 300 Balance -700 -499 40 Weight 72.9 kg 75.4 kg General appearance: PRESENT: no acute distress Eye exam: PRESENT: PERRLA Respiratory exam: PRESENT: clear to auscultation oh Cardiovascular exam: PRESENT: +S1, +S2 GI/Abdominal exam: PRESENT: soft Neurological exam: PRESENT: alert Results Laboratory Results: 11/07/18 06:14 11/07/18 06:14 11/01/18 11/01/18 11/01/18 01:26 01:26 09:07 Creatine Kinase 41 CK-MB (CK-2) Troponin I < 0.012 NT-Pro-B Natriuret Pep 679 592 11/01/18 11/01/18 11/01/18 09:07 09:07 15:00 Creatine Kinase 38 41 CK-MB (CK-2) Troponin I < 0.012 NT-Pro-B Natriuret Pep 11/01/18 11/01/18 11/01/18 15:00 21:24 21:24 Creatine Kinase 38 CK-MB (CK-2) Troponin I < 0.012 0.013 NT-Pro-B Natriuret Pep 11/02/18 11/02/18 11/02/18 16:38 16:38 22:15 Creatine Kinase 96 95 CK-MB (CK-2) 1.14 Troponin I 0.021 NT-Pro-B Natriuret Pep 318 11/02/18 11/03/18 11/03/18 22:15 03:56 03:56 Creatine Kinase 60 CK-MB (CK-2) 1.15 0.71 Troponin I 0.020 0.025 NT-Pro-B Natriuret Pep 11/03/18 11/03/18 09:46 09:46 Creatine Kinase 45 CK-MB (CK-2) 0.55 Troponin I 0.024 NT-Pro-B Natriuret Pep Impressions: Head CT 10/31/18 23:23 IMPRESSION: No acute intracranial findings. Head CTA 11/02/18 00:00 IMPRESSION: Bilateral carotid bifurcation calcifications with less than 50% diameter stenosis [place] stenosis Incidental finding of a 3 mm unruptured right MCA trifurcation intracranial aneurysm. Neck CTA 11/02/18 00:00 IMPRESSION: Bilateral carotid bifurcation calcifications with less than 50% diameter stenosis [place] stenosis Incidental finding of a 3 mm unruptured right MCA trifurcation intracranial aneurysm. Head MRI 11/03/18 00:00 IMPRESSION: Moderate chronic small vessel ischemic change. No acute findings EVIDENCE OF ACUTE STROKE: NO. Chest X-Ray 11/04/18 00:00 IMPRESSION: No change. Assessment & Plan - Diagnosis (1) Encephalopathy, unspecified Is this a current diagnosis for this admission?: Yes (2) Fever Qualifiers: Fever type: unspecified Qualified Code(s): R50.9 - Fever, unspecified Is this a current diagnosis for this admission?: Yes (3) Urinary tract infection Qualifiers: Urinary tract infection type: site unspecified Hematuria presence: without hematuria Qualified Code(s): N39.0 - Urinary tract infection, site not specified Is this a current diagnosis for this admission?: Yes (4) E. coli UTI Is this a current diagnosis for this admission?: Yes Plan: Continue antibiotic (5) COPD exacerbation Is this a current diagnosis for this admission?: Yes Plan: continue bronchodilators, DuoNeb (6) Dementia Qualifiers: Dementia type: unspecified type Dementia behavioral disturbance: without behavioral disturbance Qualified Code(s): F03.90 - Unspecified dementia without behavioral disturbance Is this a current diagnosis for this admission?: Yes
[2018-11-08 22:38] LABS: ABSOLUTE BASOPHILS # (AUTO) 0.1 10^3/uL (0.0-0.2); ABSOLUTE EOSINOPHILS # (AUTO) 0.4 10^3/uL (0.0-0.6); ABSOLUTE LYMPHOCYTES (AUTO) 1.1 10^3/uL (0.5-4.7); ABSOLUTE MONOCYTES (AUTO) 0.9 10^3/uL (0.1-1.4); ABSOLUTE NEUT (AUTO) 6.8 10^3/uL (1.7-8.2); BASOPHILS % (AUTO) 0.6 % (0-2); EOSINOPHILS % (AUTO) 4.5 % (0-6); HEMATOCRIT 31.8 % (36.0-47.0); HEMOGLOBIN 9.9 g/dL (12.0-15.5); LYMPHOCYTES % (AUTO) 11.5 % (13-45); MEAN CORPUSCULAR HEMOGLOBIN 24.2 pg (27.0-33.4); MEAN CORPUSCULAR HGB CONC 31.2 g/dL (32.0-36.0); MEAN CORPUSCULAR VOLUME 78 fl (80-97); MONOCYTES % (AUTO) 9.8 % (3-13); PLATELET COUNT 170 10^3/uL (150-450); RED CELL DISTRIBUTION WIDTH 18.9 % (11.5-14.0); SEGMENTED NEUTROPHILS % (AUTO) 73.6 % (42-78); TOTAL CELLS COUNTED % (AUTO) 100 %; WHITE BLOOD COUNT 9.3 10^3/uL (4.0-10.5)
[2018-11-08] MEDS: ATORVASTATIN CALCIUM 40 MG TABLET PO SCH (22:46)
[2018-11-08] MEDS: INSULIN GLARGINE,HUM.REC.ANLOG 1,000 UNIT/10 ML VIAL SUBCUT SCH (22:47)
[2018-11-08 22:59] LABS: ALBUMIN 3.4 g/dL (3.5-5.0); ALKALINE PHOSPHATASE 60 U/L (38-126); ANION GAP 6 (5-19); ASPARTATE AMINO TRANSFERASE 27 U/L (14-36); BILIRUBIN,DIRECT 0.2 mg/dL (0.0-0.4); BILIRUBIN,TOTAL 0.2 mg/dL (0.2-1.3); BLOOD UREA NITROGEN 22 mg/dL (7-20); CALCIUM 8.7 mg/dL (8.4-10.2); CARBON DIOXIDE 37 mmol/L (22-30); CHLORIDE 94 mmol/L (98-107); GLUCOSE 131 mg/dL (75-110); POTASSIUM 3.8 mmol/L (3.6-5.0); TOTAL PROTEIN 6.1 g/dL (6.3-8.2)
[2018-11-09 05:10] LABS: ABSOLUTE EOSINOPHILS # (AUTO) 0.3 10^3/uL (0.0-0.6); ABSOLUTE LYMPHOCYTES (AUTO) 1.3 10^3/uL (0.5-4.7); ABSOLUTE NEUT (AUTO) 6.8 10^3/uL (1.7-8.2); BASOPHILS % (AUTO) 0.4 % (0-2); EOSINOPHILS % (AUTO) 3.5 % (0-6); HEMATOCRIT 31.8 % (36.0-47.0); HEMOGLOBIN 9.8 g/dL (12.0-15.5); LYMPHOCYTES % (AUTO) 13.8 % (13-45); MEAN CORPUSCULAR HEMOGLOBIN 23.9 pg (27.0-33.4); MEAN CORPUSCULAR HGB CONC 30.8 g/dL (32.0-36.0); MEAN CORPUSCULAR VOLUME 78 fl (80-97); MONOCYTES % (AUTO) 10.8 % (3-13); PLATELET COUNT 178 10^3/uL (150-450); RED CELL DISTRIBUTION WIDTH 18.9 % (11.5-14.0); SEGMENTED NEUTROPHILS % (AUTO) 71.5 % (42-78); TOTAL CELLS COUNTED % (AUTO) 100 %; WHITE BLOOD COUNT 9.5 10^3/uL (4.0-10.5)
[2018-11-09] MEDS: LEVOTHYROXINE SODIUM 0.1 MG TABLET PO SCH (06:41)
[2018-11-09] MEDS: LEVOTHYROXINE SODIUM 0.05 MG TABLET PO SCH (06:41)
[2018-11-09] MEDS: ACETAMINOPHEN 325 MG TABLET PO PRN (08:04)
[2018-11-09] MEDS: INSULIN LISPRO 100 UNIT/ML 3 ML VIAL SUBCUT SCH ×4 (09:48→21:56)
[2018-11-09] MEDS: DULOXETINE HCL 30 MG CAPSULE.DR PO SCH (10:03)
[2018-11-09] MEDS: BUSPIRONE HCL 10 MG TABLET PO SCH ×2 (10:03→21:56)
[2018-11-09] MEDS: SITAGLIPTIN PHOSPHATE 50 MG TABLET PO SCH (10:03)
[2018-11-09] MEDS: FLUTICASONE/UMECLIDIN/VILANTER 100-62.5-25 MCG/DOSE IH SCH (10:09)
[2018-11-09 13:00] LABS: ALBUMIN 3.3 g/dL (3.5-5.0); ALKALINE PHOSPHATASE 57 U/L (38-126); ANION GAP 7 (5-19); ASPARTATE AMINO TRANSFERASE 26 U/L (14-36); BILIRUBIN,DIRECT 0.2 mg/dL (0.0-0.4); BILIRUBIN,TOTAL 0.3 mg/dL (0.2-1.3); BLOOD UREA NITROGEN 23 mg/dL (7-20); CALCIUM 8.8 mg/dL (8.4-10.2); CARBON DIOXIDE 36 mmol/L (22-30); CHLORIDE 95 mmol/L (98-107); GLUCOSE 100 mg/dL (75-110); POTASSIUM 4.1 mmol/L (3.6-5.0); TOTAL PROTEIN 6.2 g/dL (6.3-8.2)
--- NOTE | 2018-11-09 15:48 | PDOC PROGRESS REPORT ---
Subjective Progress Note for:: 11/09/18 Subjective:: Patient seen by the bedside, she continues to be lucid, as I indicated in my previous notes disposition will be a challenge for this patient, she could be downgraded to medical floor. Reason For Visit: ALTERED MENTAL STATUS,ENCEPHALOPATHY ? CAUSE Physical Exam Vital Signs: Temp Pulse Resp BP Pulse Ox 98.5 F 70 19 145/56 H 95 11/09/18 03:20 11/09/18 14:00 11/09/18 03:20 11/09/18 03:20 11/09/18 03:20 Intake & Output 11/08/18 11/09/18 11/10/18 06:59 06:59 06:59 Intake Total 476 340 240 Output Total 975 575 Balance -499 -235 240 Weight 75.4 kg 74.3 kg General appearance: PRESENT: no acute distress Eye exam: PRESENT: PERRLA Respiratory exam: PRESENT: wheezes Cardiovascular exam: PRESENT: +S1, +S2 GI/Abdominal exam: PRESENT: soft Neurological exam: PRESENT: alert Results Laboratory Results: 11/09/18 04:40 11/09/18 04:40 11/08/18 11/08/18 11/09/18 22:26 22:26 04:40 WBC 9.3 9.5 RBC 4.10 4.10 Hgb 9.9 L 9.8 L Hct 31.8 L 31.8 L MCV 78 L 78 L MCH 24.2 L 23.9 L MCHC 31.2 L 30.8 L RDW 18.9 H 18.9 H Plt Count 170 178 Seg Neutrophils % 73.6 71.5 Sodium 137.3 Potassium 3.8 Chloride 94 L Carbon Dioxide 37 H Anion Gap 6 BUN 22 H Creatinine 1.13 Est GFR ( Amer) 57 L Glucose 131 H Calcium 8.7 Total Bilirubin 0.2 AST 27 Alkaline Phosphatase 60 Total Protein 6.1 L Albumin 3.4 L 11/09/18 04:40 WBC RBC Hgb Hct MCV MCH MCHC RDW Plt Count Seg Neutrophils % Sodium 137.8 Potassium 4.1 Chloride 95 L Carbon Dioxide 36 H Anion Gap 7 BUN 23 H Creatinine 1.07 Est GFR ( Amer) > 60 Glucose 100 Calcium 8.8 Total Bilirubin 0.3 AST 26 Alkaline Phosphatase 57 Total Protein 6.2 L Albumin 3.3 L 11/04/18 07:43 Blood Blood Culture - Final NO GROWTH IN 5 DAYS 11/04/18 07:45 Blood Blood Culture - Final NO GROWTH IN 5 DAYS 11/01/18 11/01/18 11/01/18 01:26 01:26 09:07 Creatine Kinase 41 CK-MB (CK-2) Troponin I < 0.012 NT-Pro-B Natriuret Pep 679 592 11/01/18 11/01/18 11/01/18 09:07 09:07 15:00 Creatine Kinase 38 41 CK-MB (CK-2) Troponin I < 0.012 NT-Pro-B Natriuret Pep 11/01/18 11/01/18 11/01/18 15:00 21:24 21:24 Creatine Kinase 38 CK-MB (CK-2) Troponin I < 0.012 0.013 NT-Pro-B Natriuret Pep 11/02/18 11/02/18 11/02/18 16:38 16:38 22:15 Creatine Kinase 96 95 CK-MB (CK-2) 1.14 Troponin I 0.021 NT-Pro-B Natriuret Pep 318 11/02/18 11/03/18 11/03/18 22:15 03:56 03:56 Creatine Kinase 60 CK-MB (CK-2) 1.15 0.71 Troponin I 0.020 0.025 NT-Pro-B Natriuret Pep 11/03/18 11/03/18 09:46 09:46 Creatine Kinase 45 CK-MB (CK-2) 0.55 Troponin I 0.024 NT-Pro-B Natriuret Pep Impressions: Head CT 10/31/18 23:23 IMPRESSION: No acute intracranial findings. Head CTA 11/02/18 00:00 IMPRESSION: Bilateral carotid bifurcation calcifications with less than 50% diameter stenosis [place] stenosis Incidental finding of a 3 mm unruptured right MCA trifurcation intracranial aneurysm. Neck CTA 11/02/18 00:00 IMPRESSION: Bilateral carotid bifurcation calcifications with less than 50% diameter stenosis [place] stenosis Incidental finding of a 3 mm unruptured right MCA trifurcation intracranial aneurysm. Head MRI 11/03/18 00:00 IMPRESSION: Moderate chronic small vessel ischemic change. No acute findings EVIDENCE OF ACUTE STROKE: NO. Chest X-Ray 11/04/18 00:00 IMPRESSION: No change. Assessment & Plan - Diagnosis (1) Encephalopathy, unspecified Is this a current diagnosis for this admission?: Yes (2) Fever Qualifiers: Fever type: unspecified Qualified Code(s): R50.9 - Fever, unspecified Is this a current diagnosis for this admission?: Yes (3) Urinary tract infection Qualifiers: Urinary tract infection type: site unspecified Hematuria presence: without hematuria Qualified Code(s): N39.0 - Urinary tract infection, site not specified Is this a current diagnosis for this admission?: Yes (4) E. coli UTI Is this a current diagnosis for this admission?: Yes (5) COPD exacerbation Is this a current diagnosis for this admission?: Yes Plan: Continue inhaled corticosteroid (6) Dementia Qualifiers: Dementia type: unspecified type Dementia behavioral disturbance: without behavioral disturbance Qualified Code(s): F03.90 - Unspecified dementia without behavioral disturbance Is this a current diagnosis for this admission?: Yes
[2018-11-09] MEDS: CEFTRIAXONE 1 GM/D5W RTU 1 GM/50 ML RTUPB IV SCH (17:20)
[2018-11-09] MEDS: ATORVASTATIN CALCIUM 40 MG TABLET PO SCH (21:56)
[2018-11-09] MEDS: INSULIN GLARGINE,HUM.REC.ANLOG 1,000 UNIT/10 ML VIAL SUBCUT SCH (21:56)
[2018-11-10] MEDS: LEVOTHYROXINE SODIUM 0.1 MG TABLET PO SCH (05:19)
[2018-11-10] MEDS: LEVOTHYROXINE SODIUM 0.05 MG TABLET PO SCH (05:19)
[2018-11-10] MEDS: INSULIN LISPRO 100 UNIT/ML 3 ML VIAL SUBCUT SCH ×4 (09:24→22:16)
[2018-11-10] MEDS: SITAGLIPTIN PHOSPHATE 50 MG TABLET PO SCH (10:25)
[2018-11-10] MEDS: DULOXETINE HCL 30 MG CAPSULE.DR PO SCH (10:25)
[2018-11-10] MEDS: BUSPIRONE HCL 10 MG TABLET PO SCH ×2 (10:26→22:19)
[2018-11-10] MEDS: FLUTICASONE/UMECLIDIN/VILANTER 100-62.5-25 MCG/DOSE IH SCH (10:26)
--- NOTE | 2018-11-10 14:43 | PDOC PROGRESS REPORT ---
Subjective Progress Note for:: 11/10/18 Subjective:: Patient seen by the bedside no new complaints Reason For Visit: ALTERED MENTAL STATUS,ENCEPHALOPATHY ? CAUSE Physical Exam Vital Signs: Temp Pulse Resp BP Pulse Ox 98.1 F 55 L 14 140/48 H 94 11/10/18 07:54 11/10/18 10:50 11/10/18 10:50 11/10/18 07:54 11/10/18 10:50 Intake & Output 11/09/18 11/10/18 11/11/18 06:59 06:59 06:59 Intake Total 340 530 Output Total 575 1600 Balance -235 -1070 Weight 74.3 kg 70.5 kg General appearance: PRESENT: no acute distress Eye exam: PRESENT: PERRLA Respiratory exam: PRESENT: wheezes Cardiovascular exam: PRESENT: +S1, +S2 GI/Abdominal exam: PRESENT: soft Results Laboratory Results: 11/09/18 04:40 11/09/18 04:40 11/01/18 11/01/18 11/01/18 01:26 01:26 09:07 Creatine Kinase 41 CK-MB (CK-2) Troponin I < 0.012 NT-Pro-B Natriuret Pep 679 592 11/01/18 11/01/18 11/01/18 09:07 09:07 15:00 Creatine Kinase 38 41 CK-MB (CK-2) Troponin I < 0.012 NT-Pro-B Natriuret Pep 11/01/18 11/01/18 11/01/18 15:00 21:24 21:24 Creatine Kinase 38 CK-MB (CK-2) Troponin I < 0.012 0.013 NT-Pro-B Natriuret Pep 11/02/18 11/02/18 11/02/18 16:38 16:38 22:15 Creatine Kinase 96 95 CK-MB (CK-2) 1.14 Troponin I 0.021 NT-Pro-B Natriuret Pep 318 11/02/18 11/03/18 11/03/18 22:15 03:56 03:56 Creatine Kinase 60 CK-MB (CK-2) 1.15 0.71 Troponin I 0.020 0.025 NT-Pro-B Natriuret Pep 11/03/18 11/03/18 09:46 09:46 Creatine Kinase 45 CK-MB (CK-2) 0.55 Troponin I 0.024 NT-Pro-B Natriuret Pep Impressions: Head CT 10/31/18 23:23 IMPRESSION: No acute intracranial findings. Head CTA 11/02/18 00:00 IMPRESSION: Bilateral carotid bifurcation calcifications with less than 50% diameter stenosis [place] stenosis Incidental finding of a 3 mm unruptured right MCA trifurcation intracranial aneurysm. Neck CTA 11/02/18 00:00 IMPRESSION: Bilateral carotid bifurcation calcifications with less than 50% diameter stenosis [place] stenosis Incidental finding of a 3 mm unruptured right MCA trifurcation intracranial aneurysm. Head MRI 11/03/18 00:00 IMPRESSION: Moderate chronic small vessel ischemic change. No acute findings EVIDENCE OF ACUTE STROKE: NO. Chest X-Ray 11/04/18 00:00 IMPRESSION: No change. Assessment & Plan - Diagnosis (1) Encephalopathy, unspecified Is this a current diagnosis for this admission?: Yes (2) Fever Qualifiers: Fever type: unspecified Qualified Code(s): R50.9 - Fever, unspecified Is this a current diagnosis for this admission?: Yes (3) Urinary tract infection Qualifiers: Urinary tract infection type: site unspecified Hematuria presence: without hematuria Qualified Code(s): N39.0 - Urinary tract infection, site not specified Is this a current diagnosis for this admission?: Yes (4) E. coli UTI Is this a current diagnosis for this admission?: Yes (5) COPD exacerbation Is this a current diagnosis for this admission?: Yes Plan: Continue inhaled corticosteroid (6) Dementia Qualifiers: Dementia type: unspecified type Dementia behavioral disturbance: without behavioral disturbance Qualified Code(s): F03.90 - Unspecified dementia without behavioral disturbance Is this a current diagnosis for this admission?: Yes
[2018-11-10] MEDS: CEFTRIAXONE 1 GM/D5W RTU 1 GM/50 ML RTUPB IV SCH (17:51)
[2018-11-10] MEDS: ATORVASTATIN CALCIUM 40 MG TABLET PO SCH (22:19)
[2018-11-10] MEDS: INSULIN GLARGINE,HUM.REC.ANLOG 1,000 UNIT/10 ML VIAL SUBCUT SCH (22:19)
[2018-11-11] MEDS: LEVOTHYROXINE SODIUM 0.1 MG TABLET PO SCH (05:38)
[2018-11-11] MEDS: LEVOTHYROXINE SODIUM 0.05 MG TABLET PO SCH (05:39)
[2018-11-11] MEDS: INSULIN LISPRO 100 UNIT/ML 3 ML VIAL SUBCUT SCH ×4 (08:34→21:25)
[2018-11-11] MEDS: FLUTICASONE/UMECLIDIN/VILANTER 100-62.5-25 MCG/DOSE IH SCH (09:41)
[2018-11-11] MEDS: BUSPIRONE HCL 10 MG TABLET PO SCH ×2 (09:41→21:41)
[2018-11-11] MEDS: DULOXETINE HCL 30 MG CAPSULE.DR PO SCH (09:41)
[2018-11-11] MEDS: SITAGLIPTIN PHOSPHATE 50 MG TABLET PO SCH (09:41)
--- NOTE | 2018-11-11 18:34 | PDOC PROGRESS REPORT ---
Subjective Progress Note for:: 11/11/18 Subjective:: Patient's cognition is fluctuating with periods of lucidity and confusion, discharge planning said she could be discharge home Reason For Visit: ALTERED MENTAL STATUS,ENCEPHALOPATHY ? CAUSE Physical Exam Vital Signs: Temp Pulse Resp BP Pulse Ox 97.6 F 61 17 135/54 H 93 11/11/18 11:16 11/11/18 11:16 11/11/18 11:16 11/11/18 11:16 11/11/18 11:16 Intake & Output 11/10/18 11/11/18 11/12/18 06:59 06:59 06:59 Intake Total 530 1042 720 Output Total 1600 Balance -1070 1042 720 Weight 70.5 kg 70 kg General appearance: PRESENT: no acute distress Eye exam: PRESENT: PERRLA Respiratory exam: PRESENT: clear to auscultation oh Cardiovascular exam: PRESENT: +S1, +S2 GI/Abdominal exam: PRESENT: soft Neurological exam: PRESENT: alert Results Laboratory Results: 11/09/18 04:40 11/09/18 04:40 11/01/18 11/01/18 11/01/18 01:26 01:26 09:07 Creatine Kinase 41 CK-MB (CK-2) Troponin I < 0.012 NT-Pro-B Natriuret Pep 679 592 11/01/18 11/01/18 11/01/18 09:07 09:07 15:00 Creatine Kinase 38 41 CK-MB (CK-2) Troponin I < 0.012 NT-Pro-B Natriuret Pep 11/01/18 11/01/18 11/01/18 15:00 21:24 21:24 Creatine Kinase 38 CK-MB (CK-2) Troponin I < 0.012 0.013 NT-Pro-B Natriuret Pep 11/02/18 11/02/18 11/02/18 16:38 16:38 22:15 Creatine Kinase 96 95 CK-MB (CK-2) 1.14 Troponin I 0.021 NT-Pro-B Natriuret Pep 318 11/02/18 11/03/18 11/03/18 22:15 03:56 03:56 Creatine Kinase 60 CK-MB (CK-2) 1.15 0.71 Troponin I 0.020 0.025 NT-Pro-B Natriuret Pep 11/03/18 11/03/18 09:46 09:46 Creatine Kinase 45 CK-MB (CK-2) 0.55 Troponin I 0.024 NT-Pro-B Natriuret Pep Impressions: Head CT 10/31/18 23:23 IMPRESSION: No acute intracranial findings. Head CTA 11/02/18 00:00 IMPRESSION: Bilateral carotid bifurcation calcifications with less than 50% d iameter stenosis [place] stenosis Incidental finding of a 3 mm unruptured right MCA trifurcation intracranial aneurysm. Neck CTA 11/02/18 00:00 IMPRESSION: Bilateral carotid bifurcation calcifications with less than 50% diameter stenosis [place] stenosis Incidental finding of a 3 mm unruptured right MCA trifurcation intracranial aneurysm. Head MRI 11/03/18 00:00 IMPRESSION: Moderate chronic small vessel ischemic change. No acute findings EVIDENCE OF ACUTE STROKE: NO. Chest X-Ray 11/04/18 00:00 IMPRESSION: No change. Assessment & Plan - Diagnosis (1) Encephalopathy, unspecified Is this a current diagnosis for this admission?: Yes (2) Fever Qualifiers: Fever type: unspecified Qualified Code(s): R50.9 - Fever, unspecified Is this a current diagnosis for this admission?: Yes (3) Urinary tract infection Qualifiers: Urinary tract infection type: site unspecified Hematuria presence: without hematuria Qualified Code(s): N39.0 - Urinary tract infection, site not specified Is this a current diagnosis for this admission?: Yes (4) E. coli UTI Is this a current diagnosis for this admission?: Yes (5) COPD exacerbation Is this a current diagnosis for this admission?: Yes (6) Dementia Qualifiers: Dementia type: unspecified type Dementia behavioral disturbance: without behavioral disturbance Qualified Code(s): F03.90 - Unspecified dementia without behavioral disturbance Is this a current diagnosis for this admission?: Yes
[2018-11-11] MEDS: CEFTRIAXONE 1 GM/D5W RTU 1 GM/50 ML RTUPB IV SCH (18:48)
[2018-11-11] MEDS: ATORVASTATIN CALCIUM 40 MG TABLET PO SCH (21:41)
[2018-11-11] MEDS: INSULIN GLARGINE,HUM.REC.ANLOG 1,000 UNIT/10 ML VIAL SUBCUT SCH (21:41)
[2018-11-12] MEDS: LEVOTHYROXINE SODIUM 0.05 MG TABLET PO SCH (05:43)
[2018-11-12] MEDS: LEVOTHYROXINE SODIUM 0.1 MG TABLET PO SCH (05:43)
[2018-11-12] MEDS: INSULIN LISPRO 100 UNIT/ML 3 ML VIAL SUBCUT SCH ×4 (07:54→21:24)
[2018-11-12] MEDS: SITAGLIPTIN PHOSPHATE 50 MG TABLET PO SCH (10:09)
[2018-11-12] MEDS: DULOXETINE HCL 30 MG CAPSULE.DR PO SCH (10:09)
[2018-11-12] MEDS: BUSPIRONE HCL 10 MG TABLET PO SCH ×2 (10:09→21:05)
[2018-11-12] MEDS: FLUTICASONE/UMECLIDIN/VILANTER 100-62.5-25 MCG/DOSE IH SCH (10:13)
[2018-11-12] MEDS: ACETAMINOPHEN 325 MG TABLET PO PRN ×2 (13:17→18:40)
[2018-11-12] MEDS: CEFTRIAXONE 1 GM/D5W RTU 1 GM/50 ML RTUPB IV SCH (17:09)
--- NOTE | 2018-11-12 18:50 | PDOC PROGRESS REPORT ---
Subjective Progress Note for:: 11/12/18 Subjective:: Patient seen by the bedside, she is back to baseline, hopefully discharge home tomorrow, discharge planning making arrangements. Reason For Visit: ALTERED MENTAL STATUS,ENCEPHALOPATHY ? CAUSE Physical Exam Vital Signs: Temp Pulse Resp BP Pulse Ox 98.3 F 67 16 131/44 H 98 11/12/18 15:17 11/12/18 15:17 11/12/18 15:17 11/12/18 15:17 11/12/18 15:17 Intake & Output 11/11/18 11/12/18 11/13/18 06:59 06:59 06:59 Intake Total 1092 881 Balance 1092 881 Weight 70 kg 74.8 kg General appearance: PRESENT: no acute distress Eye exam: PRESENT: PERRLA Respiratory exam: PRESENT: clear to auscultation oh Cardiovascular exam: PRESENT: +S1, +S2 GI/Abdominal exam: PRESENT: soft Results Laboratory Results: 11/09/18 04:40 11/09/18 04:40 11/01/18 11/01/18 11/01/18 01:26 01:26 09:07 Creatine Kinase 41 CK-MB (CK-2) Troponin I < 0.012 NT-Pro-B Natriuret Pep 679 592 11/01/18 11/01/18 11/01/18 09:07 09:07 15:00 Creatine Kinase 38 41 CK-MB (CK-2) Troponin I < 0.012 NT-Pro-B Natriuret Pep 11/01/18 11/01/18 11/01/18 15:00 21:24 21:24 Creatine Kinase 38 CK-MB (CK-2) Troponin I < 0.012 0.013 NT-Pro-B Natriuret Pep 11/02/18 11/02/18 11/02/18 16:38 16:38 22:15 Creatine Kinase 96 95 CK-MB (CK-2) 1.14 Troponin I 0.021 NT-Pro-B Natriuret Pep 318 11/02/18 11/03/18 11/03/18 22:15 03:56 03:56 Creatine Kinase 60 CK-MB (CK-2) 1.15 0.71 Troponin I 0.020 0.025 NT-Pro-B Natriuret Pep 11/03/18 11/03/18 09:46 09:46 Creatine Kinase 45 CK-MB (CK-2) 0.55 Troponin I 0.024 NT-Pro-B Natriuret Pep Impressions: Head CT 10/31/18 23:23 IMPRESSION: No acute intracranial findings. Head CTA 11/02/18 00:00 IMPRESSION: Bilateral carotid bifurcation calcifications with less than 50% diameter stenosis [place] stenosis Incidental finding of a 3 mm unruptured right MCA trifurcation intracranial aneurysm. Neck CTA 11/02/18 00:00 IMPRESSION: Bilateral carotid bifurcation calcifications with less than 50% diameter stenosis [place] stenosis Incidental finding of a 3 mm unruptured right MCA trifurcation intracranial aneurysm. Head MRI 11/03/18 00:00 IMPRESSION: Moderate chronic small vessel ischemic change. No acute findings EVIDENCE OF ACUTE STROKE: NO. Chest X-Ray 11/04/18 00:00 IMPRESSION: No change. Assessment & Plan - Diagnosis (1) Encephalopathy, unspecified Is this a current diagnosis for this admission?: Yes (2) Fever Qualifiers: Fever type: unspecified Qualified Code(s): R50.9 - Fever, unspecified Is this a current diagnosis for this admission?: Yes (3) Urinary tract infection Qualifiers: Urinary tract infection type: site unspecified Hematuria presence: without hematuria Qualified Code(s): N39.0 - Urinary tract infection, site not specified Is this a current diagnosis for this admission?: Yes (4) E. coli UTI Is this a current diagnosis for this admission?: Yes (5) COPD exacerbation Is this a current diagnosis for this admission?: Yes (6) Dementia Qualifiers: Dementia type: unspecified type Dementia behavioral disturbance: without behavioral disturbance Qualified Code(s): F03.90 - Unspecified dementia without behavioral disturbance Is this a current diagnosis for this admission?: Yes
[2018-11-12 19:18] LABS: ABSOLUTE BASOPHILS # (AUTO) 0.1 10^3/uL (0.0-0.2); ABSOLUTE EOSINOPHILS # (AUTO) 0.2 10^3/uL (0.0-0.6); ABSOLUTE LYMPHOCYTES (AUTO) 1.7 10^3/uL (0.5-4.7); ABSOLUTE MONOCYTES (AUTO) 0.6 10^3/uL (0.1-1.4); ABSOLUTE NEUT (AUTO) 5.3 10^3/uL (1.7-8.2); BASOPHILS % (AUTO) 1.2 % (0-2); EOSINOPHILS % (AUTO) 2.3 % (0-6); HEMATOCRIT 29.9 % (36.0-47.0); HEMOGLOBIN 9.3 g/dL (12.0-15.5); MEAN CORPUSCULAR HEMOGLOBIN 23.9 pg (27.0-33.4); MEAN CORPUSCULAR HGB CONC 31.1 g/dL (32.0-36.0); MEAN CORPUSCULAR VOLUME 77 fl (80-97); MONOCYTES % (AUTO) 8.1 % (3-13); PLATELET COUNT 208 10^3/uL (150-450); RED CELL DISTRIBUTION WIDTH 18.7 % (11.5-14.0); SEGMENTED NEUTROPHILS % (AUTO) 66.4 % (42-78); TOTAL CELLS COUNTED % (AUTO) 100 %; WHITE BLOOD COUNT 7.9 10^3/uL (4.0-10.5)
[2018-11-12 19:31] LABS: ALBUMIN 3.5 g/dL (3.5-5.0); ALKALINE PHOSPHATASE 56 U/L (38-126); ANION GAP 9 (5-19); ASPARTATE AMINO TRANSFERASE 21 U/L (14-36); BILIRUBIN,DIRECT 0.1 mg/dL (0.0-0.4); BILIRUBIN,TOTAL 0.3 mg/dL (0.2-1.3); BLOOD UREA NITROGEN 14 mg/dL (7-20); CALCIUM 8.8 mg/dL (8.4-10.2); CARBON DIOXIDE 33 mmol/L (22-30); CHLORIDE 95 mmol/L (98-107); GLUCOSE 115 mg/dL (75-110); POTASSIUM 3.6 mmol/L (3.6-5.0); TOTAL PROTEIN 6.7 g/dL (6.3-8.2)
[2018-11-12] MEDS: ATORVASTATIN CALCIUM 40 MG TABLET PO SCH (21:05)
[2018-11-12] MEDS: INSULIN GLARGINE,HUM.REC.ANLOG 1,000 UNIT/10 ML VIAL SUBCUT SCH (21:25)
[2018-11-13] MEDS: LEVOTHYROXINE SODIUM 0.1 MG TABLET PO SCH (05:59)
[2018-11-13] MEDS: LEVOTHYROXINE SODIUM 0.05 MG TABLET PO SCH (05:59)
--- NOTE | 2018-11-13 08:39 | PDOC DISCHARGE SUMMARY ---
Impression - Admit/DC Date/PCP Admission Date/Primary Care Provider: 11/01/18 04:50 JEN MAE MD Discharge Date: 11/13/18 - Discharge Diagnosis (1) Encephalopathy, unspecified Is this a current diagnosis for this admission?: Yes (2) E. coli UTI Is this a current diagnosis for this admission?: Yes (3) Urinary tract infection Is this a current diagnosis for this admission?: Yes (4) COPD exacerbation Is this a current diagnosis for this admission?: Yes (5) Dementia Is this a current diagnosis for this admission?: Yes - Additional Information Resuscitation Status: Do Not Resuscitate Referrals: JEN MAE MD [Primary Care Provider] - 11/21/18 11:00 am Home Medications: Buspirone HCl [Buspar 10 mg Tablet] 10 mg PO Q12 08/13/18 Levothyroxine Sodium [Synthroid 0.05 mg Tablet] 0.05 mg PO Q6AM 08/13/18 Levothyroxine Sodium [Synthroid] 200 mcg PO Q6AM 08/13/18 Duloxetine HCl [Cymbalta 30 mg Capsule.] 60 mg PO DAILY #200 capsule. 08/19/18 Fluticasone/Umeclidin/Vilanter [Trelegy 100-62.5-25 Mcg Ellipta 14 Dose/Dpi] 1 inh IH DAILY inhaler 08/19/18 Insulin Glargine,Hum.rec.anlog [Lantus Insulin 100 Unit/1 ml 10 ml] 30 unit SUBCUT QHS unit 08/19/18 Ipratropium/Albuterol Sulfate [Duoneb 3 ml Ampul] 3 ml NEB RTQ6HP PRN vial.neb 08/19/18 Sitagliptin Phosphate [Januvia 50 mg Tablet] 100 mg PO DAILY tablet 08/19/18 Acetaminophen [Tylenol 325 mg Tablet] 325 mg PO Q4HP PRN 11/01/18 History of Present Illiness History of Present Illness: GABINO ALEXANDER is a 73 year old female, She has significant multiple comorbid conditions including dementia, COPD, tobacco abuse, severe hypothyroidism she was brought to the emergency room for evaluation of altered mental status in the emergency room CT head did not demonstrate any change.The serum TSH, 23.60 free T4 0.64, I am not sure this patient is compliant with medications the thyroid profile suggests hypothyroid state, she is on very large dosages of Synthroid.Patient family apparently dumped in the emergency room and left . Patient's daughter has expressed to me previously that her mother dementia is progressive, very forgetful and very confused, so what we are experiencing now could be progressive dementia rather than an acute reversible event. Hospital Course Hospital Course: Patient was admitted for the management of encephalopathic symptoms, she presented with confusion, she was also stuporous, initially CVA was suspected, she was evaluated for CVA, MRI of the brain was done which was negative for any acute CVA. When she was admitted there was no family member that could give consent for procedure necessary for this patient including EEG, lumbar puncture and MRI of the brain. She was not in the position to give a consent because she was confused and also very stuporous.There was no localizing signs of focal signs that suggest acute CVA. Ultimately patient regained full consciousness and also alertness I was able to communicate reasonably well. She indicated to me that her daughter was in [facility] because of shoplifting.. The urine culture grew E. coli with significant colonic count, she was treated with intravenous antibiotic.She has episode of fluctuating mentation with lucidity and confusion alternating intermittently.Patient hospital stay was prolonged partly due to disposition, it was felt that patient is not in the position to take care of herself at home and there is increased risk of readmission in this patient, ultimately decision was made to discharge patient in the care of family. Physical Exam Vital Signs: Temp Pulse Resp BP Pulse Ox 97.9 F 70 16 147/64 H 93 11/13/18 04:33 11/13/18 04:33 11/13/18 04:33 11/13/18 04:33 11/13/18 04:33 Intake & Output 11/12/18 11/13/18 11/14/18 06:59 06:59 06:59 Intake Total 881 1185 Balance 881 1185 Weight 74.8 kg 73.3 kg General appearance: PRESENT: no acute distress Eye exam: PRESENT: PERRLA Respiratory exam: PRESENT: clear to auscultation oh Cardiovascular exam: PRESENT: +S1, +S2 GI/Abdominal exam: PRESENT: soft Neurological exam: PRESENT: alert, CN II-XII grossly intact Results Laboratory Results: WBC 7.9 10^3/uL (4.0-10.5) 11/12/18 19:05 RBC 3.90 10^6/uL (3.72-5.28) 11/12/18 19:05 Hgb 9.3 g/dL (12.0-15.5) L 11/12/18 19:05 Hct 29.9 % (36.0-47.0) L 11/12/18 19:05 MCV 77 fl (80-97) L 11/12/18 19:05 MCH 23.9 pg (27.0-33.4) L 11/12/18 19:05 MCHC 31.1 g/dL (32.0-36.0) L 11/12/18 19:05 RDW 18.7 % (11.5-14.0) H 11/12/18 19:05 Plt Count 208 10^3/uL (150-450) 11/12/18 19:05 Lymph % (Auto) 22.0 % (13-45) 11/12/18 19:05 [place] % (Auto) 8.1 % (3-13) 11/12/18 19:05 Eos % (Auto) 2.3 % (0-6) 11/12/18 19:05 Baso % (Auto) 1.2 % (0-2) 11/12/18 19:05 Absolute Neuts (auto) 5.3 10^3/uL (1.7-8.2) 11/12/18 19:05 Absolute Lymphs (auto) 1.7 10^3/uL (0.5-4.7) 11/12/18 19:05 Absolute Monos (auto) 0.6 10^3/uL (0.1-1.4) 11/12/18 19:05 Absolute Eos (auto) 0.2 10^3/uL (0.0-0.6) 11/12/18 19:05 Absolute Basos (auto) 0.1 10^3/uL (0.0-0.2) 11/12/18 19:05 Seg Neutrophils % 66.4 % (42-78) 11/12/18 19:05 PT 14.0 SEC (11.4-15.4) 11/02/18 16:38 INR 1.08 11/02/18 16:38 APTT 29.4 SEC (23.5-35.8) 11/02/18 16:38 Carbonic Acid 1.38 mmol/L (1.05-1.35) H 11/01/18 04:50 HCO3/H2CO3 Ratio 18:1 11/01/18 04:50 ABG pH 7.37 (7.35-7.45) 11/01/18 04:50 ABG pCO2 45.9 mmHg (35-45) H 11/01/18 04:50 ABG pO2 118.6 mmHg (80-100) H 11/01/18 04:50 ABG HCO3 26.1 mmol/L (20-24) H 11/01/18 04:50 ABG Total CO2 27.5 mmol/L (21-25) H 11/01/18 04:50 ABG O2 Saturation 98.2 % (94-98) H 11/01/18 04:50 ABG Base Excess 0.5 mmol/L 11/01/18 04:50 FiO2 100% 11/01/18 04:50 Sodium 136.9 mmol/L (137-145) L 11/12/18 19:05 Potassium 3.6 mmol/L (3.6-5.0) 11/12/18 19:05 Chloride 95 mmol/L (98-107) L 11/12/18 19:05 Carbon Dioxide 33 mmol/L (22-30) H 11/12/18 19:05 Anion Gap 9 (5-19) 11/12/18 19:05 BUN 14 mg/dL (7-20) 11/12/18 19:05 Creatinine 1.16 mg/dL (0.52-1.25) 11/12/18 19:05 Est GFR ( Amer) 56 (>60) L 11/12/18 19:05 Est GFR (MDRD) Non-Af 46 (>60) L 11/12/18 19:05 Glucose 115 mg/dL (75-110) H 11/12/18 19:05 POC Glucose 113 mg/dL (70-110) H 11/12/18 21:12 Hemoglobin A1c % 7.2 % (4.7-6.0) H 11/02/18 04:18 Lactic Acid 0.7 mmol/L (0.7-2.1) 11/01/18 02:03 Calcium 8.8 mg/dL (8.4-10.2) 11/12/18 19:05 Phosphorus 4.2 mg/dL (2.5-4.5) 11/01/18 09:07 Magnesium 1.9 mg/dL (1.6-2.3) 11/01/18 09:07 Total Bilirubin 0.3 mg/dL (0.2-1.3) 11/12/18 19:05 Direct Bilirubin 0.1 mg/dL (0.0-0.4) 11/12/18 19:05 Neonat Total Bilirubin Not Reportable 11/12/18 19:05 Neonat Direct Bilirubin Not Reportable 11/12/18 19:05 Neonat Indirect Bili Not Reportable 11/12/18 19:05 AST 21 U/L (14-36) 11/12/18 19:05 ALT 13 U/L (<35) 11/12/18 19:05 Alkaline Phosphatase 56 U/L (38-126) 11/12/18 19:05 Ammonia < 8.7 umol/L (9-33) L 11/01/18 09:07 Creatine Kinase 45 U/L (30-135) 11/03/18 09:46 CK-MB (CK-2) 0.55 ng/mL (<4.55) 11/03/18 09:46 Troponin I 0.024 ng/mL 11/03/18 09:46 NT-Pro-B Natriuret Pep 318 pg/mL (5-900) 11/02/18 16:38 Total Protein 6.7 g/dL (6.3-8.2) 11/12/18 19:05 Albumin 3.5 g/dL (3.5-5.0) 11/12/18 19:05 Amylase 31 U/L (30-110) 11/01/18 09:07 Lipase 26.2 U/L (23-300) 11/01/18 09:07 TSH 23.60 uIU/mL (0.47-4.68) H 11/01/18 01:26 Free T4 0.64 ng/dL (0.78-2.19) L 11/01/18 01:26 Free T3 pg/mL 3.48 pg/mL (2.77-5.27) 11/01/18 01:26 Urine Color YELLOW 11/01/18 01:26 Urine Appearance CLEAR 11/01/18 01:26 Urine pH 6.0 (5.0-9.0) 11/01/18 01:26 Ur Specific [place] 1.016 11/01/18 01:26 Urine Protein >=500 mg/dL (NEGATIVE) H 11/01/18 01:26 Urine Glucose (UA) NEGATIVE mg/dL (NEGATIVE) 11/01/18 01:26 Urine Ketones NEGATIVE mg/dL (NEGATIVE) 11/01/18 01:26 Urine Blood NEGATIVE (NEGATIVE) 11/01/18 01:26 Urine Nitrite NEGATIVE (NEGATIVE) 11/01/18 01:26 Urine Bilirubin NEGATIVE (NEGATIVE) 11/01/18 01:26 Urine Urobilinogen NEGATIVE mg/dL (<2.0) 11/01/18 01:26 Ur Leukocyte Esterase NEGATIVE (NEGATIVE) 11/01/18 01:26 Urine WBC (Auto) 3 /HPF 11/01/18 01:26 Urine RBC (Auto) 1 /HPF 11/01/18 01:26 Urine Bacteria (Auto) TRACE /HPF 11/01/18 01:26 Squamous Epi Cells Auto <1 /HPF 11/01/18 01:26 Urine Mucus (Auto) RARE /LPF 11/01/18 01:26 Urine Ascorbic Acid NEGATIVE (NEGATIVE) 11/01/18 01:26 Urine Opiates Screen NEGATIVE 11/01/18 01:26 Urine Methadone Screen NEGATIVE 11/01/18 01:26 Ur Barbiturates Screen NEGATIVE 11/01/18 01:26 Ur Phencyclidine Scrn NEGATIVE 11/01/18 01:26 Ur Amphetamines Screen NEGATIVE 11/01/18 01:26 U Benzodiazepines Scrn NEGATIVE 11/01/18 01:26 Urine Cocaine Screen NEGATIVE 11/01/18 01:26 U Marijuana (THC) Screen NEGATIVE 11/01/18 01:26 11/01/18 11/01/18 11/01/18 01:26 09:07 09:07 CK-MB (CK-2) Troponin I < 0.012 < 0.012 NT-Pro-B Natriuret Pep 679 592 11/01/18 11/01/18 11/02/18 15:00 21:24 16:38 CK-MB (CK-2) 1.14 Troponin I < 0.012 0.013 0.021 NT-Pro-B Natriuret Pep 318 11/02/18 11/03/18 11/03/18 22:15 03:56 09:46 CK-MB (CK-2) 1.15 0.71 0.55 Troponin I 0.020 0.025 0.024 NT-Pro-B Natriuret Pep Impressions: Chest X-Ray 10/31/18 23:20 IMPRESSION: 1. Cardiomegaly with mild pulmonary vascular congestion. 2. No focal acute infiltrates. Head CT 10/31/18 23:23 IMPRESSION: No acute intracranial findings. Head CTA 11/02/18 00:00 IMPRESSION: Bilateral carotid bifurcation calcifications with less than 50% diameter stenosis [place] stenosis Incidental finding of a 3 mm unruptured right MCA trifurcation intracranial aneurysm. Neck CTA 11/02/18 00:00 IMPRESSION: Bilateral carotid bifurcation calcifications with less than 50% diameter stenosis [place] stenosis Incidental finding of a 3 mm unruptured right MCA trifurcation intracranial aneurysm. Head MRI 11/03/18 00:00 IMPRESSION: Moderate chronic small vessel ischemic change. No acute findings EVIDENCE OF ACUTE STROKE: NO. Chest X-Ray 11/04/18 00:00 IMPRESSION: No change. Stroke Is this a Stroke Patient?: No Reason(s) for not prescribing Anti-thrombolytic therapy:: Not indicated Stroke Pt being discharged on Anti-coagulation therapy?: No Reason(s) for not prescribing Anti-coagulation therapy:: Not indicated Stroke Pt being discharged on Statins?: No Reason(s) for not prescribing Statins therapy:: Not indicated Acute Heart Failure - Is this a Heart Failure Patient?: No Follow-up Appointment scheduled within 7 days?: Yes
[2018-11-13] MEDS: INSULIN LISPRO 100 UNIT/ML 3 ML VIAL SUBCUT SCH ×4 (09:15→23:00)
[2018-11-13] MEDS: SITAGLIPTIN PHOSPHATE 50 MG TABLET PO SCH (09:17)
[2018-11-13] MEDS: BUSPIRONE HCL 10 MG TABLET PO SCH ×2 (09:17→23:04)
[2018-11-13] MEDS: DULOXETINE HCL 30 MG CAPSULE.DR PO SCH (09:17)
[2018-11-13] MEDS: ACETAMINOPHEN 325 MG TABLET PO PRN (09:17)
[2018-11-13] MEDS: FLUTICASONE/UMECLIDIN/VILANTER 100-62.5-25 MCG/DOSE IH SCH (09:20)
[2018-11-13] MEDS: CEFTRIAXONE 1 GM/D5W RTU 1 GM/50 ML RTUPB IV SCH (18:08)
[2018-11-13] MEDS: ATORVASTATIN CALCIUM 40 MG TABLET PO SCH (23:04)
[2018-11-13] MEDS: INSULIN GLARGINE,HUM.REC.ANLOG 1,000 UNIT/10 ML VIAL SUBCUT SCH (23:04)
[2018-11-14] MEDS: LEVOTHYROXINE SODIUM 0.1 MG TABLET PO SCH (05:42)
[2018-11-14] MEDS: LEVOTHYROXINE SODIUM 0.05 MG TABLET PO SCH (05:42)
[2018-11-14] MEDS: INSULIN LISPRO 100 UNIT/ML 3 ML VIAL SUBCUT SCH (10:04)
[2018-11-14] MEDS: BUSPIRONE HCL 10 MG TABLET PO SCH (10:05)
[2018-11-14] MEDS: DULOXETINE HCL 30 MG CAPSULE.DR PO SCH (10:06)
[2018-11-14] MEDS: SITAGLIPTIN PHOSPHATE 50 MG TABLET PO SCH (10:06)
[2018-11-14] MEDS: FLUTICASONE/UMECLIDIN/VILANTER 100-62.5-25 MCG/DOSE IH SCH (10:06)
[2018-11-14 13:26] VITALS: BP 142/49
== END 2018-11-14 13:43 | disposition home health service (06) | DRG 70 ==
LOC: ER 22:25 → EH 11-01 04:50 → 3W 11-01 06:26
PROVIDERS: ADMIT Internal Medicine; ATTEND Internal Medicine
DX: G93.40 Encephalopathy, unspecified (principal); J96.20 Acute and chronic respiratory failure, unspecified whether with hypoxia or hypercapnia; N39.0 Urinary tract infection, site not specified; R41.82 Altered mental status, unspecified; I50.9 Heart failure, unspecified; I11.0 Hypertensive heart disease with heart failure; I73.9 Peripheral vascular disease, unspecified; J44.9 Chronic obstructive pulmonary disease, unspecified; E03.9 Hypothyroidism, unspecified; E11.8 Type 2 diabetes mellitus with unspecified complications; K21.9 Gastro-esophageal reflux disease without esophagitis; I67.1 Cerebral aneurysm, nonruptured; B96.20 Unspecified Escherichia coli [E. coli] as the cause of diseases classified elsewhere; F03.90 Unspecified dementia, unspecified severity, without behavioral disturbance, psychotic disturbance, mood disturbance, and anxiety; F17.210 Nicotine dependence, cigarettes, uncomplicated; Z74.2 Need for assistance at home and no other household member able to render care; Z79.4 Long term (current) use of insulin; Z79.51 Long term (current) use of inhaled steroids; Z79.899 Other long term (current) drug therapy
CPT/HCPCS: 36415; 51701; 70450; 70496; 70498; 70551; 71045; 80048; 80053; 80076; 80307; 81001; 82140; 82150; 82550; 82553; 82803; 82962; 83036; 83605; 83690; 83735; 83880; 84100; 84439; 84443; 84481; 84484; 85025; 85610; 85730; 87040; 87070; 87086; 87088; 87186; 93005; 93010; 93306; 95819; 99285; J0696; J1650; J1815; J3480; J3490; J7030; J7060; J7620

== ENCOUNTER 2018-12-20 12:44 | Inpatient (IN) | payer MEDICARE ==
[2018-12-20 14:06] LABS: APPEARANCE,URINE CLEAR; BILIRUBIN,URINE NEGATIVE (NEGATIVE); COLOR,URINE STRAW; GLUCOSE, URINE NEGATIVE (NEGATIVE); KETONES,URINE NEGATIVE (NEGATIVE); PROTEIN,URINE 100 mg/dL (NEGATIVE); URINE SPECIFIC GRAVITY 1.009; UROBILINOGEN,URINE NEGATIVE mg/dL (<2.0)
[2018-12-20 14:17] LABS: ABSOLUTE EOSINOPHILS # (AUTO) 0.1 10^3/uL (0.0-0.6); ABSOLUTE LYMPHOCYTES (AUTO) 1.5 10^3/uL (0.5-4.7); ABSOLUTE MONOCYTES (AUTO) 0.5 10^3/uL (0.1-1.4); ABSOLUTE NEUT (AUTO) 4.6 10^3/uL (1.7-8.2); BASOPHILS % (AUTO) 0.5 % (0-2); EOSINOPHILS % (AUTO) 1.2 % (0-6); HEMATOCRIT 28.6 % (36.0-47.0); HEMOGLOBIN 8.8 g/dL (12.0-15.5); LYMPHOCYTES % (AUTO) 22.2 % (13-45); MEAN CORPUSCULAR HEMOGLOBIN 23.8 pg (27.0-33.4); MEAN CORPUSCULAR HGB CONC 30.9 g/dL (32.0-36.0); MEAN CORPUSCULAR VOLUME 77 fl (80-97); MONOCYTES % (AUTO) 6.9 % (3-13); PLATELET COUNT 184 10^3/uL (150-450); RED BLOOD COUNT 3.71 10^6/uL (3.72-5.28); RED CELL DISTRIBUTION WIDTH 17.9 % (11.5-14.0); SEGMENTED NEUTROPHILS % (AUTO) 69.2 % (42-78); TOTAL CELLS COUNTED % (AUTO) 100 %; WHITE BLOOD COUNT 6.6 10^3/uL (4.0-10.5)
[2018-12-20 14:18] LABS: ALBUMIN 3.8 g/dL (3.5-5.0); ALKALINE PHOSPHATASE 58 U/L (38-126); ANION GAP 8 (5-19); ASPARTATE AMINO TRANSFERASE 26 U/L (14-36); BILIRUBIN,DIRECT 0.2 mg/dL (0.0-0.4); BILIRUBIN,TOTAL 0.4 mg/dL (0.2-1.3); BLOOD UREA NITROGEN 19 mg/dL (7-20); CALCIUM 8.8 mg/dL (8.4-10.2); CARBON DIOXIDE 30 mmol/L (22-30); CHLORIDE 99 mmol/L (98-107); GLUCOSE 145 mg/dL (75-110); POTASSIUM 3.8 mmol/L (3.6-5.0)
[2018-12-20 14:27] LABS: CREATINE KINASE MB 2.99 ng/mL (<4.55); TROPONIN I 0.025 ng/mL
[2018-12-20 14:31] LABS: URINE AMPHETAMINES SCREEN NEGATIVE; URINE BARBITURATES SCREEN NEGATIVE; URINE BENZODIAZEPINES SCREEN NEGATIVE; URINE COCAINE SCREEN NEGATIVE; URINE MARIJUANA (THC) SCREEN NEGATIVE; URINE METHADONE SCREEN NEGATIVE; URINE PHENCYCLIDINE SCREEN NEGATIVE
[2018-12-20 15:36] LABS: FREE T4 (FREE THYROXINE) 0.89 ng/dL (0.78-2.19)
[2018-12-20 15:50] LABS: THYROID STIMULATING HORMONE 18.7 uIU/mL (0.47-4.68)
--- NOTE | 2018-12-20 15:53 | ER Document Report ---
ED General - General Chief Complaint: Leg Swelling Stated Complaint: BILATERAL LEG SWELLING Time Seen by Provider: 12/20/18 14:13 Primary Care Provider: JEN MAE MD [Primary Care Provider] - Follow up as needed TRAVEL OUTSIDE OF THE [place] IN LAST 30 DAYS: No COUNTRY TRAVELED TO/FROM: [facility] Notes: 73-year-old female to the emergency department with grandchild with complaints of bilateral leg swelling, progressively worsening confusion for the past several days. Grandson states that he has noticed that his grandmother has been acting confused and strange. States that she will forget that she is my latest hemorrhage and will place utensils in the wrong place or talk out of her head. He states that this is been ongoing for the past 2 days. He states that she has known dementia but is typically more lucid than this. Patient states that she woke up this morning and she had significant leg edema. She denies any shortness of breath. She is on oxygen 3 L at home continuously. She was admitted to the hospital in October for encephalopathy as well as UTI. She belongs to Dr. Mae. She denies any chest pain, shortness of breath, nausea vomiting diarrhea. She does admit to frequent urination. - Related Data Allergies/Adverse Reactions: melon Allergy (Unknown, Verified 07/02/18 19:17) allopurinol [From Zyloprim] Allergy (Verified 03/06/18 03:47) amitriptyline HCl [From Elavil] Allergy (Verified 03/06/18 03:47) belladonna alkaloids [From Bellergal-S] Allergy (Verified 03/06/18 03:47) cefuroxime axetil [From Ceftin] Allergy (Verified 03/06/18 03:47) celecoxib [From Celebrex] Allergy (Verified 03/06/18 03:47) cimetidine [From Tagamet] Allergy (Verified 03/06/18 03:47) codeine [Codeine] Allergy (Verified 03/06/18 03:47) doxepin HCl [From [place]] Allergy (Verified 03/06/18 03:47) ergotamine tartrate [From Bellergal-S] Allergy (Verified 03/06/18 03:47) fluoxetine HCl [From Prozac] Allergy (Verified 03/06/18 03:47) hydroxyzine HCl [From Atarax] Allergy (Verified 03/06/18 03:47) indigotindisulfonic acid [From [place]igo [place]] Allergy (Verified 03/06/18 03:47) malathion Allergy (Verified 03/06/18 03:47) mefenamic acid Allergy (Verified 03/06/18 03:47) Milk Containing Products Allergy (Verified 03/06/18 03:47) naproxen sodium [From Anaprox] Allergy (Verified 03/06/18 03:47) nefazodone HCl [From Serzone] Allergy (Verified 03/06/18 03:47) phenylephrine tannate [From [place] CT] Allergy (Verified 03/06/18 03:47) pyrilamine tannate [From [place] CT] Allergy (Verified 03/06/18 03:47) tolterodine tartrate [From Detrol] Allergy (Verified 03/06/18 03:47) trazodone HCl [From Desyrel] Allergy (Verified 03/06/18 03:47) morphine Adverse Reaction (Verified 04/11/18 21:58) renuzil Allergy (Uncoded 01/24/18 17:48) surgical steel Allergy (Uncoded 01/24/18 17:48) Past Medical History - General Information source: Patient - Social History Smoking Status: Former Smoker Chew tobacco use (# tins/day): No Frequency of alcohol use: None Drug Abuse: None Lives with: Family Family History: CAD, DM, Hypertension Patient has suicidal ideation: No Patient has homicidal ideation: No - Past Medical History Cardiac Medical History: Reports: Hx Congestive Heart Failure, Hx Hypertension, Hx Peripheral Vascular Disease Pulmonary Medical History: Reports: Hx COPD - not on home o2, Hx Pneumonia Neurological Medical History: Denies: Hx Seizures Endocrine Medical History: Reports: Hx Diabetes Mellitus Type 2, Hx Hypothyroidism - w/med noncompliance and hx of myxedema coma Renal/ Medical History: Denies: Hx Hemodialysis, Hx Peritoneal Dialysis GI Medical History: Reports: Hx Gastroesophageal Reflux Disease. Denies: Hx Crohn's Disease, Hx Ulcerative Colitis Musculoskeletal Medical History: Reports Hx Arthritis, Denies Hx Gout Skin Medical History: Denies Hx Eczema, Denies Hx Psoriasis Psychiatric Medical History: Reports: Hx Depression Denies: Hx Bipolar Disorder, Hx Personality Disorder, Hx Schizoaffective Disorder Traumatic Medical History: Denies: Hx Traumatic Brain Injury Past Surgical History: Reports: Hx Cholecystectomy, Hx Orthopedic Surgery - L Wrist. Denies: Hx Hysterectomy - Immunizations Immunizations up to date: No Hx Diphtheria, Pertussis, Tetanus Vaccination: No Review of Systems - Review of Systems Constitutional: denies: Chills, Fever EENT: No symptoms reported Cardiovascular: denies: Chest pain, Palpitations, Heart racing, Dyspnea, Syncope, Dizziness Respiratory: denies: Cough, Short of breath Gastrointestinal: denies: Abdominal pain, Diarrhea, Nausea, Vomiting Genitourinary: Frequency. denies: Dysuria Musculoskeletal: No symptoms reported Skin: No symptoms reported Neurological/Psychological: Confusion, Dementia -: Yes All other systems reviewed and negative Physical Exam - Vital signs Vitals: Resp 12/20/18 12:55 Interpretation: Normal - General General appearance: Appears well, Alert - HEENT Head: Normocephalic, Atraumatic Eyes: Normal Pupils: PERRL Ears: Normal External canal: Normal Tympanic membrane: Normal Sinus: Normal Nasal: Normal Mouth/Lips: Normal Pharynx: Normal Neck: Normal - Respiratory Respiratory status: No respiratory distress Chest status: Nontender Breath sounds: Normal. No: Rales, Rhonchi, Stridor, Wheezing Chest palpation: Normal - Cardiovascular Rhythm: Regular Heart sounds: Normal auscultation Murmur: No Notes: 1-2+ pitting edema to bilateral legs. - Abdominal Inspection: Normal Distension: No distension Bowel sounds: Normal Tenderness: Nontender Organomegaly: No organomegaly - Back Back: Normal, Nontender. 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 Patient is oriented to person, place. She thinks the year is 2005. - Skin Skin Temperature: Warm Skin Moisture: Dry Skin Color: Normal Course - Re-evaluation Re-evalutation: 12/20/18 17:40 Noted labs. Patient with recurrence earning history with the episodes of increased confusion over the past week and family is feeling uncomfortable about her coming home. Noted TSH of 18 and she does have pitting edema to her legs bilaterally. She has mild vascular congestion on chest x-ray and her CT is not showing any acute abnormality. Her urinalysis is not particularly impressive however when she is admitted to the hospital in October she had a very similar urinalysis and that grew out E. coli. Concerned that perhaps she has an underlying urinary tract infection that could be causing her episodes of confusion. Discussed this with Dr. Nelson and he agrees is appropriate to call Dr. Mae and discuss admission for this patient. Spoke with Dr. Mcnally is covering for Dr. Mae. He agrees with the plan for admission and would like for the patient to the telemetry bed. He would also like for her to have Dopplers of her bilateral lower legs. He agrees with starting the patient on Rocephin. Patient has had Rocephin in the past and tolerated. Rounded with the patient and her grandson and they agree with the plan. - Vital Signs Vital signs: Temp Pulse Resp BP Pulse Ox 97.7 F 14 171/56 H 96 12/20/18 12:58 12/20/18 12:58 12/20/18 12:58 12/20/18 13:58 - Laboratory Result Diagrams: 12/20/18 13:20 12/20/18 13:20 Laboratory results interpreted by me: 12/20/18 12/20/18 12/20/18 13:20 13:20 13:20 RBC 3.71 L Hgb 8.8 L Hct 28.6 L MCV 77 L MCH 23.8 L MCHC 30.9 L RDW 17.9 H Sodium 136.9 L Glucose 145 H NT-Pro-B Natriuret Pep 867 H TSH Urine Protein Urine Blood 12/20/18 12/20/18 13:20 13:45 RBC Hgb Hct MCV MCH MCHC RDW Sodium Glucose NT-Pro-B Natriuret Pep TSH 18.70 H Urine Protein 100 H Urine Blood SMALL H - Diagnostic Test Radiology reviewed: Image reviewed, Reports reviewed Discharge - Discharge Clinical Impression: Hypothyroidism, Localized swelling of both lower legs Altered mental status Qualifiers: Altered mental status type: unspecified Qualified Code(s): R41.82 - Altered mental status, unspecified Condition: Stable Disposition: ADMITTED INPATIENT Admitting Provider: [facility] Admitted: Telemetry Referrals: JEN MAE MD [Primary Care Provider] - Follow up as needed
--- NOTE | 2018-12-20 16:11 | RADIOLOGY REPORT (SQ) ---
EXAM DESCRIPTION: CHEST 2 VIEWS COMPLETED DATE/TIME: 12/20/2018 4:01 pm REASON FOR STUDY: AMS, leg swelling COMPARISON: 11/04/2018 EXAM PARAMETERS: NUMBER OF VIEWS: two views TECHNIQUE: Digital Frontal and Lateral radiographic views of the chest acquired. RADIATION DOSE: NA LIMITATIONS: none FINDINGS: LUNGS AND PLEURA: Bilateral interstitial airspace disease. No definite effusions. MEDIASTINUM AND HILAR STRUCTURES: No masses or contour abnormalities. HEART AND VASCULAR STRUCTURES: Heart remains enlarged with central vascular congestion. BONES: No acute findings. HARDWARE: None in the chest. OTHER: No other significant finding. IMPRESSION: Findings are consistent with vascular congestion. Similar findings were noted on prior exam. TECHNICAL DOCUMENTATION: JOB ID: [id number] [employer]- All Rights Reserved Reading location - IP/workstation name: [email or web address]
--- NOTE | 2018-12-20 16:22 | RADIOLOGY REPORT (SQ) ---
EXAM DESCRIPTION: CT HEAD WITHOUT COMPLETED DATE/TIME: 12/20/2018 4:12 pm REASON FOR STUDY: Altered level of consciousness COMPARISON: 11/02/2018 TECHNIQUE: Axial images acquired through the brain without intravenous contrast. Images reviewed wi th bone, brain and subdural windows. Additional sagittal and coronal reconstructions were generated. Images stored on PACS. All CT scanners at this facility use dose modulation, iterative reconstruction, and/or weight based d osing when appropriate to reduce radiation dose to as low as reasonably achievable (ALARA). [facility]: Dose Right [facility]: CareDose [facility]: Dose Right [facility]: Teradose 4D [facility]: AdAdapted RADIATION DOSE: CT Rad equipment meets quality standard of care and radiation dose reduction techniq ues were employed. CTDIvol: 53.2 mGy. DLP: 964 mGy-cm. mGy. LIMITATIONS: None. FINDINGS: VENTRICLES: Prominent. CEREBRUM: No masses. No hemorrhage. No midline shift. Areas of low density in the white matter mos t likely due to chronic micro-vascular ischemic change. No evidence for acute infarction. CEREBELLUM: No masses. No hemorrhage. No alteration of density. No evidence for acute infarction. EXTRAAXIAL SPACES: Mild age-related involutional change. No fluid collections. No masses. ORBITS AND GLOBE: No intra- or extraconal masses. Normal contour of globe without masses. CALVARIUM: No fracture. PARANASAL SINUSES: There is mucosal thickening in the left maxillary sinus. SOFT TISSUES: No mass or hematoma. OTHER: No other significant finding. IMPRESSION: MILD CHRONIC CHANGES OF ATROPHY AND MICROVASCULAR ISCHEMIA. NO ACUTE PROCESS. EVIDENCE OF ACUTE STROKE: NO. TECHNICAL DOCUMENTATION: JOB ID: [id number] Quality ID # [id number]: Final reports with documentation of one or more dose reduction techniques (e.g., Au tomated exposure control, adjustment of the mA and/or kV according to patient size, use of iterative reconstruction technique) 2010 [employer]- All Rights Reserved Reading location - IP/workstation name: CHARLY
[2018-12-20] MEDS ORDERED: CEFTRIAXONE 1 GM/D5W RTU 1 GM/50 ML RTUPB IV ONE (17:32)
[2018-12-20] MEDS ORDERED: IPRATROPIUM/ALBUTEROL 0.5-2.5 MG/3 ML AMPUL NEB PRN (18:26)
[2018-12-20] MEDS ORDERED: ONDANSETRON HCL INJ/PF 4 MG/2 ML SDV IV PRN (18:26)
[2018-12-20] MEDS: ENOXAPARIN SODIUM INJ 40 MG/0.4 ML DISP.SYRIN SUBCUT SCH (19:18)
[2018-12-20] MEDS: CEFEPIME 1 GM/D5W RTU 1 GM/50 ML RTUPB IV SCH (21:33)
[2018-12-20] MEDS: ACETAMINOPHEN 325 MG TABLET PO PRN (21:35)
[2018-12-20] MEDS ORDERED: INFLUENZA QUAD (6MOS+) 2019-20 VAC 0.5 ML SYR IM ONE (23:50)
[2018-12-21 04:53] LABS: ABSOLUTE EOSINOPHILS # (AUTO) 0.1 10^3/uL (0.0-0.6); ABSOLUTE MONOCYTES (AUTO) 0.5 10^3/uL (0.1-1.4); ABSOLUTE NEUT (AUTO) 3.6 10^3/uL (1.7-8.2); BASOPHILS % (AUTO) 0.3 % (0-2); EOSINOPHILS % (AUTO) 1.6 % (0-6); HEMATOCRIT 27.4 % (36.0-47.0); HEMOGLOBIN 8.5 g/dL (12.0-15.5); LYMPHOCYTES % (AUTO) 31.8 % (13-45); MEAN CORPUSCULAR HEMOGLOBIN 23.7 pg (27.0-33.4); MEAN CORPUSCULAR HGB CONC 31.1 g/dL (32.0-36.0); MEAN CORPUSCULAR VOLUME 76 fl (80-97); MONOCYTES % (AUTO) 8.5 % (3-13); PLATELET COUNT 169 10^3/uL (150-450); RED CELL DISTRIBUTION WIDTH 17.4 % (11.5-14.0); SEGMENTED NEUTROPHILS % (AUTO) 57.8 % (42-78); TOTAL CELLS COUNTED % (AUTO) 100 %; WHITE BLOOD COUNT 6.2 10^3/uL (4.0-10.5)
[2018-12-21 05:14] LABS: ALBUMIN 3.4 g/dL (3.5-5.0); ALKALINE PHOSPHATASE 53 U/L (38-126); ANION GAP 6 (5-19); ASPARTATE AMINO TRANSFERASE 21 U/L (14-36); BILIRUBIN,DIRECT 0.1 mg/dL (0.0-0.4); BILIRUBIN,TOTAL 0.3 mg/dL (0.2-1.3); BLOOD UREA NITROGEN 17 mg/dL (7-20); CALCIUM 8.6 mg/dL (8.4-10.2); CARBON DIOXIDE 31 mmol/L (22-30); CHLORIDE 102 mmol/L (98-107); GLUCOSE 104 mg/dL (75-110); POTASSIUM 3.5 mmol/L (3.6-5.0); TOTAL PROTEIN 6.2 g/dL (6.3-8.2)
[2018-12-21] MEDS: PANTOPRAZOLE SODIUM 40 MG TABLET.DR PO SCH ×2 (06:43→18:29)
[2018-12-21] MEDS: ENOXAPARIN SODIUM INJ 40 MG/0.4 ML DISP.SYRIN SUBCUT SCH (09:13)
[2018-12-21] MEDS: CEFEPIME 1 GM/D5W RTU 1 GM/50 ML RTUPB IV SCH ×2 (09:13→21:32)
[2018-12-21] MEDS: DOCUSATE SODIUM 100 MG/10 ML UDC PO SCH ×2 (09:13→18:29)
--- NOTE | 2018-12-21 09:17 | XCELERA REPORT ---
[address] [facility] [address] Lower Extremity Venous Evaluation Procedure: Color flow and duplex imaging bilaterally of the veins of the lower extremities as well as the Common Femoral veins. Right Sided Venous Evaluation Normal vessel filling wall to wall, compression and augmentation as well as Colour flow down to the infrageniculate veins. Left Sided Venous Evaluation Normal vessel filling wall to wall, compression and augmentation as well as Colour flow down to the infrageniculate veins. Interpretation Summary No duplex evidence of DVT or obstruction in the bilateral lower extremities. Name: GABINO ALEXANDER Age: 73 yrs Gender: Female : 1945 Patient Status: Inpatient Patient Location: [place] [address]^A Study Date: 12/20/2018 06:38 PM Reason For Study: bilateral leg swelling Ordering Physician: KATIE YOUNG Performed By: Cierra Lopez : KATIE YOUNG > Matteo Marroquin
[2018-12-21] MEDS ORDERED: POTASSIUM CHLORIDE 20 MEQ PACKET PO ONE (10:30)
[2018-12-21 10:36] LABS: ABSOLUTE RETICS # 0.049 10^6/uL (0.028-0.122); RETICULOCYTE COUNT (AUTO) 1.37 % (0.66-2.85)
--- NOTE | 2018-12-21 10:38 | PDOC H&P ---
History of Present Illness Admission Date/PCP: 12/20/18 17:37 JEN MAE MD Patient complains of: Altered mental status History of Present Illness: GABINO ALEXANDER is a 73 year old female This is a 73-year-old female with a significant medical comorbidity including the dementia COPD hypothyroidism's recently admitting in the hospital last month with the extensive work-up done for the confusions and patient basically suggested that point go to the rehab facilities because of the head and thinks of family able to take care brought to the emergency department by the grandson Patient's according to the grandson was confused and leg swelling in the emerg ency department all work-up is negative including the no sign of any heart failure patient CT head was negative patient ultrasound of the lower extremity was negative I will is not comfortable to take back home Patient's admitting in the hospital for further evaluations When I saw the patient's patient is alert awake walking in the hallway without any problems answering all questions as usual underlying dementia with some confusions Patient is feeling and looks much better to me as I will evaluate the patient's in the past Patient's initial work-up is all stable except hemoglobin is 8.5 no of any active bleeding Past Medical History Cardiac Medical History: Reports: Congestive Heart Failure, Hypertension, Peripheral Vascular Disease Pulmonary Medical History: Reports: Chronic Obstructive Pulmonary Disease (COPD) - not on home o2, Pneumonia Neurological Medical History: Denies: Seizures Endocrine Medical History: Reports: Diabetes Mellitus Type 2, Hypothyroidism - w/med noncompliance and hx of myxedema coma GI Medical History: Reports: Gastroesophageal Reflux Disease Denies: Crohn's Disease, Ulcerative Colitis Musculoskeltal Medical History: Reports: Arthritis Denies: Gout Skin Medical History: Denies: Eczema, Psoriasis Psychiatric Medical History: Reports: Depression Denies: Bipolar Disorder, Personality Disorder, Schizoaffective Disorder Traumatic Medical History: Denies: Traumatic Brain Injury Past Surgical History Past Surgical History: Reports: Cholecystectomy, Orthopedic Surgery - L Wrist Denies: Hysterectomy Social History Lives with: Family Smoking Status: Former Smoker Electronic Cigarette use?: No Frequency of Alcohol Use: None Hx Recreational Drug Use: No Drugs: None Hx Prescription Drug Abuse: No Family History Family History: None, CAD, DM, Hypertension Parental Family History Reviewed: Yes Children Family History Reviewed: Yes Sibling(s) Family History Reviewed.: Yes Medication/Allergy Home Medications: Acetaminophen [Tylenol 325 mg Tablet] 325 mg PO Q4HP PRN 12/20/18 Buspirone HCl [Buspar 10 mg Tablet] 10 mg PO Q12 12/20/18 Fluticasone/Umeclidin/Vilanter [Trelegy 100-62.5-25 Mcg Ellipta 14 Dose/Dpi] 1 inh IH DAILY 12/20/18 Levothyroxine Sodium [Synthroid] 250 mcg PO DAILY 12/20/18 Duloxetine HCl [Cymbalta 30 mg Capsule.dr] 60 mg PO DAILY 12/21/18 Insulin Glargine,Hum.rec.anlog [Lantus (Pyxis) Insulin 100 Unit/1 ml 10 ml] 30 units SUBCUT QHS 12/21/18 Ipratropium/Albuterol Sulfate [Duoneb 3 ml Ampul] 1 inh IH Q6 PRN 12/21/18 Sitagliptin Phosphate [Januvia 50 mg Tablet] 100 mg PO DAILY 12/21/18 Allergies/Adverse Reactions: melon Allergy (Unknown, Verified 07/02/18 19:17) allopurinol [From Zyloprim] Allergy (Verified 03/06/18 03:47) amitriptyline HCl [From Elavil] Allergy (Verified 03/06/18 03:47) belladonna alkaloids [From Bellergal-S] Allergy (Verified 03/06/18 03:47) cefuroxime axetil [From Ceftin] Allergy (Verified 03/06/18 03:47) celecoxib [From Celebrex] Allergy (Verified 03/06/18 03:47) cimetidine [From Tagamet] Allergy (Verified 03/06/18 03:47) codeine [Codeine] Allergy (Verified 03/06/18 03:47) doxepin HCl [From Sinequan] Allergy (Verified 03/06/18 03:47) ergotamine tartrate [From Bellergal-S] Allergy (Verified 03/06/18 03:47) fluoxetine HCl [From Prozac] Allergy (Verified 03/06/18 03:47) hydroxyzine HCl [From Atarax] Allergy (Verified 03/06/18 03:47) indigotindisulfonic acid [From Indigo [place]] Allergy (Verified 03/06/18 03:47) malathion Allergy (Verified 03/06/18 03:47) mefenamic acid Allergy (Verified 03/06/18 03:47) Milk Containing Products Allergy (Verified 03/06/18 03:47) naproxen sodium [From Anaprox] Allergy (Verified 03/06/18 03:47) nefazodone HCl [From Serzone] Allergy (Verified 03/06/18 03:47) phenylephrine tannate [From [place] CT] Allergy (Verified 03/06/18 03:47) pyrilamine tannate [From [place] CT] Allergy (Verified 03/06/18 03:47) tolterodine tartrate [From Detrol] Allergy (Verified 03/06/18 03:47) trazodone HCl [From Desyrel] Allergy (Verified 03/06/18 03:47) morphine Adverse Reaction (Verified 04/11/18 21:58) renuzil Allergy (Uncoded 01/24/18 17:48) surgical steel Allergy (Uncoded 01/24/18 17:48) Review of Systems Constitutional: ABSENT: chills, fever(s), headache(s), weight gain, weight loss Eyes: ABSENT: visual disturbances Ears: ABSENT: hearing changes Cardiovascular: ABSENT: chest pain, dyspnea on exertion, edema, orthropnea, palp itations Respiratory: ABSENT: cough, hemoptysis Gastrointestinal: ABSENT: abdominal pain, constipation, diarrhea, hematemesis, hematochezia, nausea, vomiting Genitourinary: ABSENT: dysuria, hematuria Musculoskeletal: ABSENT: joint swelling Integumentary: ABSENT: rash, wounds Neurological: ABSENT: abnormal gait, abnormal speech, confusion, dizziness, focal weakness, syncope Psychiatric: ABSENT: anxiety, depression, homidical ideation, suicidal ideation Endocrine: ABSENT: cold intolerance, heat intolerance, menstrual abnormalities, polydipsia, polyuria Hematologic/Lymphatic: ABSENT: easy bleeding, easy bruising, lymphadenopathy Physical Exam Vital Signs: Temp Pulse Resp BP Pulse Ox 97.8 F 49 L 18 132/50 H 100 12/21/18 07:58 12/21/18 07:58 12/21/18 07:58 12/21/18 07:58 12/21/18 07:58 Intake & Output 12/20/18 12/21/18 12/22/18 06:59 06:59 06:59 Intake Total 100 Output Total 100 Balance 0 Weight 74.5 kg General appearance: PRESENT: no acute distress, well-developed, well-nourished Head exam: PRESENT: atraumatic, normocephalic Eye exam: PRESENT: conjunctiva pink, EOMI, PERRLA. ABSENT: scleral icterus Ear exam: PRESENT: normal external ear exam Mouth exam: PRESENT: moist, tongue midline Neck exam: PRESENT: full ROM. ABSENT: carotid bruit, JVD, lymphadenopathy, thyromegaly Respiratory exam: PRESENT: clear to auscultation oh Cardiovascular exam: PRESENT: RRR. ABSENT: diastolic murmur, rubs, systolic murmur Pulses: PRESENT: normal dorsalis pedis pul, +2 pedal pulses bilateral Vascular exam: PRESENT: normal capillary refill GI/Abdominal exam: PRESENT: normal bowel sounds, soft. ABSENT: distended, guarding, mass, organolmegaly, rebound, tenderness Rectal exam: PRESENT: deferred Musculoskeletal exam: PRESENT: ambulatory Neurological exam: PRESENT: alert, awake, oriented to person, oriented to place, reflexes normal, CN II-XII grossly intact, normal gait. ABSENT: motor sensory deficit Psychiatric exam: PRESENT: appropriate affect, normal mood. ABSENT: homicidal ideation, suicidal ideation Skin exam: PRESENT: dry, intact, warm. ABSENT: cyanosis, rash Results Laboratory Results: 12/21/18 04:05 12/21/18 04:05 12/20/18 12/20/18 12/20/18 13:20 13:20 13:20 WBC 6.6 RBC 3.71 L Hgb 8.8 L Hct 28.6 L MCV 77 L MCH 23.8 L MCHC 30.9 L RDW 17.9 H Plt Count 184 Seg Neutrophils % 69.2 Sodium 136.9 L Potassium 3.8 Chloride 99 Carbon Dioxide 30 Anion Gap 8 BUN 19 Creatinine 0.87 Est GFR ( Amer) > 60 Glucose 145 H Lactic Acid Calcium 8.8 Total Bilirubin 0.4 AST 26 Alkaline Phosphatase 58 Total Protein 7.0 Albumin 3.8 TSH 18.70 H Free T4 0.89 Urine Color Urine Appearance Urine pH Ur Specific [place] Urine Protein Urine Glucose (UA) Urine Ketones Urine Blood Urine RBC (Auto) 12/20/18 12/20/18 12/20/18 13:45 17:35 18:20 WBC RBC Hgb Hct MCV MCH MCHC RDW Plt Count Seg Neutrophils % Sodium Potassium Chloride Carbon Dioxide Anion Gap BUN Creatinine Est GFR ( Amer) Glucose Lactic Acid Cancelled 0.6 L Calcium Total Bilirubin AST Alkaline Phosphatase Total Protein Albumin TSH Free T4 Urine Color STRAW Urine Appearance CLEAR Urine pH 7.0 Ur Specific [place] 1.009 Urine Protein 100 H Urine Glucose (UA) NEGATIVE Urine Ketones NEGATIVE Urine Blood SMALL H Urine RBC (Auto) 0 12/21/18 12/21/18 04:05 04:05 WBC 6.2 RBC 3.60 L Hgb 8.5 L Hct 27.4 L MCV 76 L MCH 23.7 L MCHC 31.1 L RDW 17.4 H Plt Count 169 Seg Neutrophils % 57.8 Sodium 138.8 Potassium 3.5 L Chloride 102 Carbon Dioxide 31 H Anion Gap 6 BUN 17 Creatinine 0.89 Est GFR ( Amer) > 60 Glucose 104 Lactic Acid Calcium 8.6 Total Bilirubin 0.3 AST 21 Alkaline Phosphatase 53 Total Protein 6.2 L Albumin 3.4 L TSH Free T4 Urine Color Urine Appearance Urine pH Ur Specific [place] Urine Protein Urine Glucose (UA) Urine Ketones Urine Blood Urine RBC (Auto) 12/20/18 13:20 CK-MB (CK-2) 2.99 Troponin I 0.025 NT-Pro-B Natriuret Pep 867 H Impressions: Chest X-Ray 12/20/18 14:49 IMPRESSION: Findings are consistent with vascular congestion. Similar findings were noted on prior exam. Head CT 12/20/18 14:49 IMPRESSION: MILD CHRONIC CHANGES OF ATROPHY AND MICROVASCULAR ISCHEMIA. NO ACUTE PROCESS. EVIDENCE OF ACUTE STROKE: NO. Assessment & Plan - Diagnosis (1) Altered mental status Qualifiers: Altered mental status type: unspecified Qualified Code(s): R41.82 - Altered mental status, unspecified Is this a current diagnosis for this admission?: Yes Plan: Most likely underlying dementia's Patient have at this encephalopathy type of picture last time admitted MRI of the head and others extensive work-up was negative Patient's looks like to me as a baseline underlying dementia Will rule out underlying any urinary tract infections Continues to monitor Wait for the culture (2) Hypothyroidism Qualifiers: Hypothyroidism type: unspecified Is this a current diagnosis for this admission?: Yes Plan: I do not think the patient is taking the medicines as instructed due to underlying dementia. Adjust the dose (3) Localized swelling of both lower legs Is this a current diagnosis for this admission?: Yes Plan: Probably patient need elastic stocking Ultrasound is negative for any DVT (4) Anemia Qualifiers: Is this a current diagnosis for this admission?: Yes Plan: We will get the iron study (5) Chronic obstructive pulmonary disease (COPD) Qualifiers: Qualified Code(s): J44.9 - Chronic obstructive pulmonary disease, unspecified Is this a current diagnosis for this admission?: Yes Plan: PRN nebulizer treatments (6) Dementia Qualifiers: Dementia type: unspecified type Dementia behavioral disturbance: without behavioral disturbance Qualified Code(s): F03.90 - Unspecified dementia without behavioral disturbance Is this a current diagnosis for this admission?: Yes - Time Time Spent: 30 to 50 Minutes Medications reviewed and adjusted accordingly: Yes Anticipated discharge: SNF Within: Other - Inpatient Certification Based on my medical assessment, after consideration of the patient's com orbidities, presenting symptoms, or acuity I expect that the services needed warrant INPATIENT care.: Yes I certify that my determination is in accordance with my understanding of Medicare's requirements for reasonable and necessary INPATIENT services [42 CFR 412.3e].: Yes Medical Necessity: Significant Comorbidiites Make Outpatient Treatment Too Risky, Need for IV Antibiotics Post Hospital Care: D/C Adjuster Arbitrator Documentation - Plan Summary Plan Summary: Admit the patient in IMCU Rule out underlying any infections Continues to monitor Anemia work-up environmental restoration planner for possible rehab placement
[2018-12-21 11:28] LABS: FERRITIN 9.61 ng/mL (11.1-264.0)
[2018-12-21 11:58] LABS: FOLATE 8.13 ng/mL (>2.76)
[2018-12-21 12:02] LABS: IRON(TIBC) < 10.1 ug/dL (37-170)
[2018-12-21] MEDS: ACETAMINOPHEN 325 MG TABLET PO PRN (14:28)
--- NOTE | 2018-12-21 22:03 | EKG REPORT ---
SEVERITY:- ABNORMAL ECG - SINUS RHYTHM NONSPECIFIC T ABNORMALITIES, ANT-LAT LEADS : Confirmed by: Melissa Menendez 21-Dec-2018 22:03:02
[2018-12-22 04:38] LABS: ABSOLUTE EOSINOPHILS # (AUTO) 0.1 10^3/uL (0.0-0.6); ABSOLUTE LYMPHOCYTES (AUTO) 1.7 10^3/uL (0.5-4.7); ABSOLUTE MONOCYTES (AUTO) 0.8 10^3/uL (0.1-1.4); ABSOLUTE NEUT (AUTO) 4.4 10^3/uL (1.7-8.2); BASOPHILS % (AUTO) 0.6 % (0-2); HEMOGLOBIN 9.3 g/dL (12.0-15.5); LYMPHOCYTES % (AUTO) 24.3 % (13-45); MEAN CORPUSCULAR HEMOGLOBIN 23.5 pg (27.0-33.4); MEAN CORPUSCULAR HGB CONC 30.9 g/dL (32.0-36.0); MEAN CORPUSCULAR VOLUME 76 fl (80-97); MONOCYTES % (AUTO) 10.8 % (3-13); PLATELET COUNT 200 10^3/uL (150-450); RED BLOOD COUNT 3.94 10^6/uL (3.72-5.28); RED CELL DISTRIBUTION WIDTH 17.4 % (11.5-14.0); SEGMENTED NEUTROPHILS % (AUTO) 62.3 % (42-78); TOTAL CELLS COUNTED % (AUTO) 100 %
[2018-12-22] MEDS: PANTOPRAZOLE SODIUM 40 MG TABLET.DR PO SCH ×2 (05:38→18:00)
--- NOTE | 2018-12-22 09:32 | PDOC PROGRESS REPORT ---
Subjective Progress Note for:: 12/22/18 Subjective:: Patient is currently doing same According to the nurse this time patient is confused on and off Patient is denied any chest pain to than any shortness of the breath No abdominal pain Reason For Visit: ALTERED MENTAL STATUS,HYPOTHYROIDISM,LOCALIZED Physical Exam Vital Signs: Temp Pulse Resp BP Pulse Ox 98.0 F 53 L 20 175/49 H 96 12/22/18 03:25 12/22/18 03:25 12/22/18 03:25 12/22/18 03:25 12/22/18 03:25 Intake & Output 12/21/18 12/22/18 12/23/18 06:59 06:59 06:59 Intake Total 100 1910 Output Total 100 400 Balance 0 1510 Weight 74.5 kg 77.5 kg General appearance: PRESENT: no acute distress, well-developed, well-nourished Head exam: PRESENT: atraumatic, normocephalic Eye exam: PRESENT: conjunctiva pink, EOMI, PERRLA. ABSENT: scleral icterus Ear exam: PRESENT: normal external ear exam Mouth exam: PRESENT: moist, tongue midline Neck exam: PRESENT: full ROM. ABSENT: carotid bruit, JVD, lymphadenopathy, thyromegaly Respiratory exam: PRESENT: clear to auscultation oh Cardiovascular exam: PRESENT: RRR. ABSENT: diastolic murmur, rubs, systolic murmur Pulses: PRESENT: normal dorsalis pedis pul, +2 pedal pulses bilateral Vascular exam: PRESENT: normal capillary refill GI/Abdominal exam: PRESENT: normal bowel sounds, soft. ABSENT: distended, guarding, mass, organolmegaly, rebound, tenderness Rectal exam: PRESENT: deferred Musculoskeletal exam: PRESENT: ambulatory Neurological exam: PRESENT: alert, awake, oriented to person. ABSENT: motor sensory deficit Psychiatric exam: PRESENT: appropriate affect, normal mood. ABSENT: homicidal ideation, suicidal ideation Skin exam: PRESENT: dry, intact, warm. ABSENT: cyanosis, rash Results Laboratory Results: 12/22/18 04:04 12/21/18 04:05 12/21/18 12/21/18 12/22/18 04:05 04:05 04:04 WBC 7.0 RBC 3.94 Hgb 9.3 L Hct 30.0 L MCV 76 L MCH 23.5 L MCHC 30.9 L RDW 17.4 H Plt Count 200 Seg Neutrophils % 62.3 Retic Count (auto) 1.37 Iron < 10.1 L TIBC 375 Ferritin 9.61 L Vitamin B12 250.0 Folate 8.13 12/20/18 13:20 CK-MB (CK-2) 2.99 Troponin I 0.025 NT-Pro-B Natriuret Pep 867 H Impressions: Chest X-Ray 12/20/18 14:49 IMPRESSION: Findings are consistent with vascular congestion. Similar findings were noted on prior exam. Head CT 12/20/18 14:49 IMPRESSION: MILD CHRONIC CHANGES OF ATROPHY AND MICROVASCULAR ISCHEMIA. NO ACUTE PROCESS. EVIDENCE OF ACUTE STROKE: NO. Assessment & Plan - Diagnosis (1) Altered mental status Qualifiers: Altered mental status type: unspecified Qualified Code(s): R41.82 - Altered mental status, unspecified Is this a current diagnosis for this admission?: Yes Plan: We are waiting for the cultures Most likely underlying dementia's (2) Hypothyroidism Qualifiers: Hypothyroidism type: unspecified Is this a current diagnosis for this admission?: Yes Plan: I do not think the patient is taking the medicines as instructed due to underlying dementia. Adjust the dose (3) Localized swelling of both lower legs Is this a current diagnosis for this admission?: Yes Plan: Probably patient need elastic stocking Ultrasound is negative for any DVT (4) Anemia Qualifiers: Is this a current diagnosis for this admission?: Yes Plan: Patient's ferritin is very low Patient is scheduled IV iron transfusion Patient is vitamin B12 the lower end we will give vitamin B12 injections (5) Chronic obstructive pulmonary disease (COPD) Qualifiers: Is this a current diagnosis for this admission?: Yes Plan: PRN nebulizer treatments (6) Dementia Qualifiers: Dementia type: unspecified type Dementia behavioral disturbance: without behavioral disturbance Qualified Code(s): F03.90 - Unspecified dementia without behavioral disturbance Is this a current diagnosis for this admission?: Yes - Time Time Spent with patient: 15-24 minutes Level of Care: IMCU Medications reviewed and adjusted accordingly: Yes Anticipated discharge: SNF Within: Other - Plan Summary Plan Summary: Patient still on IV iron transfusion Also given B12 injections Waiting for the culture
[2018-12-22] MEDS ORDERED: POTASSIUM CHLORIDE 20 MEQ PACKET PO ONE (09:45)
[2018-12-22] MEDS ORDERED: CYANOCOBALAMIN (VITAMIN B-12) INJ 1000 MCG/1 ML VIAL IM ONE (10:00)
[2018-12-22] MEDS: CEFEPIME 1 GM/D5W RTU 1 GM/50 ML RTUPB IV SCH ×2 (10:19→22:18)
[2018-12-22] MEDS: DOCUSATE SODIUM 100 MG/10 ML UDC PO SCH ×2 (10:19→18:12)
[2018-12-22] MEDS: ENOXAPARIN SODIUM INJ 40 MG/0.4 ML DISP.SYRIN SUBCUT SCH (10:22)
[2018-12-23] MEDS: PANTOPRAZOLE SODIUM 40 MG TABLET.DR PO SCH ×2 (05:22→17:03)
[2018-12-23 06:10] LABS: ABSOLUTE EOSINOPHILS # (AUTO) 0.2 10^3/uL (0.0-0.6); ABSOLUTE LYMPHOCYTES (AUTO) 1.5 10^3/uL (0.5-4.7); ABSOLUTE MONOCYTES (AUTO) 0.7 10^3/uL (0.1-1.4); ABSOLUTE NEUT (AUTO) 3.9 10^3/uL (1.7-8.2); BASOPHILS % (AUTO) 0.8 % (0-2); EOSINOPHILS % (AUTO) 2.4 % (0-6); HEMATOCRIT 31.2 % (36.0-47.0); HEMOGLOBIN 9.7 g/dL (12.0-15.5); LYMPHOCYTES % (AUTO) 23.4 % (13-45); MEAN CORPUSCULAR HEMOGLOBIN 23.5 pg (27.0-33.4); MEAN CORPUSCULAR VOLUME 76 fl (80-97); MONOCYTES % (AUTO) 10.7 % (3-13); PLATELET COUNT 182 10^3/uL (150-450); RED BLOOD COUNT 4.12 10^6/uL (3.72-5.28); RED CELL DISTRIBUTION WIDTH 17.5 % (11.5-14.0); SEGMENTED NEUTROPHILS % (AUTO) 62.7 % (42-78); TOTAL CELLS COUNTED % (AUTO) 100 %; WHITE BLOOD COUNT 6.3 10^3/uL (4.0-10.5)
[2018-12-23 06:13] LABS: ANION GAP 6 (5-19); BLOOD UREA NITROGEN 13 mg/dL (7-20); CALCIUM 9.2 mg/dL (8.4-10.2); CARBON DIOXIDE 33 mmol/L (22-30); CHLORIDE 100 mmol/L (98-107); GLUCOSE 103 mg/dL (75-110); POTASSIUM 4.7 mmol/L (3.6-5.0)
[2018-12-23] MEDS: DOCUSATE SODIUM 100 MG/10 ML UDC PO SCH ×2 (10:06→17:03)
[2018-12-23] MEDS: ENOXAPARIN SODIUM INJ 40 MG/0.4 ML DISP.SYRIN SUBCUT SCH (10:09)
[2018-12-23] MEDS: CEFEPIME 1 GM/D5W RTU 1 GM/50 ML RTUPB IV SCH (10:09)
--- NOTE | 2018-12-23 21:39 | PDOC PROGRESS REPORT ---
Subjective Progress Note for:: 12/23/18 Subjective:: Patient was admitted over the weekend when she presented with bilateral leg swelling, confusion venous Doppler was done in the emergency room, this was negative for deep vein thrombosis. She has underlying dementia with other poorly controlled comorbid conditions including COPD. I saw patient today by the bedside, she is very confused not engaging in any meaningful conversation. She expressed a wish previously that she like to be a DNR, no family members available to discuss this with, patient overall prognosis is very poor Reason For Visit: ALTERED MENTAL STATUS,HYPOTHYROIDISM,LOCALIZED Physical Exam Vital Signs: Temp Pulse Resp BP Pulse Ox 98.7 F 58 L 16 151/55 H 100 12/23/18 19:25 12/23/18 19:25 12/23/18 19:25 12/23/18 19:25 12/23/18 19:25 Intake & Output 12/22/18 12/23/18 12/24/18 06:59 06:59 06:59 Intake Total 1910 100 170 Output Total 400 Balance 1510 100 170 Weight 77.5 kg 73.6 kg General appearance: PRESENT: other - Sleepy but arousable, very confused Respiratory exam: PRESENT: clear to auscultation oh Cardiovascular exam: PRESENT: +S1, +S2 GI/Abdominal exam: PRESENT: soft Neurological exam: PRESENT: alert Results Laboratory Results: 12/23/18 05:13 12/23/18 05:13 12/23/18 12/23/18 05:13 05:13 WBC 6.3 RBC 4.12 Hgb 9.7 L Hct 31.2 L MCV 76 L MCH 23.5 L MCHC 31.0 L RDW 17.5 H Plt Count 182 Seg Neutrophils % 62.7 Sodium 138.7 Potassium 4.7 Chloride 100 Carbon Dioxide 33 H Anion Gap 6 BUN 13 Creatinine 0.87 Est GFR ( Amer) > 60 Glucose 103 Calcium 9.2 12/20/18 13:45 Clean Catch Midstream Urine Culture - Final Mixed Urogenital [place] 12/20/18 13:20 CK-MB (CK-2) 2.99 Troponin I 0.025 NT-Pro-B Natriuret Pep 867 H Impressions: Chest X-Ray 12/20/18 14:49 IMPRESSION: Findings are consistent with vascular congestion. Similar findings were noted on prior exam. Head CT 12/20/18 14:49 IMPRESSION: MILD CHRONIC CHANGES OF ATROPHY AND MICROVASCULAR ISCHEMIA. NO ACUTE PROCESS. EVIDENCE OF ACUTE STROKE: NO. Assessment & Plan - Diagnosis (1) Acute encephalopathy Is this a current diagnosis for this admission?: Yes (2) Dementia Qualifiers: Dementia type: Alzheimer's disease Alzheimer's disease onset: other onset Dementia behavioral disturbance: without behavioral disturbance Qualified Code(s): G30.8 - Other Alzheimer's disease; F02.80 - Dementia in other diseases classified elsewhere without behavioral disturbance Is this a current diagnosis for this admission?: Yes (3) Iron deficiency anemia Qualifiers: Iron deficiency anemia type: chronic blood loss Qualified Code(s): D50.0 - Iron deficiency anemia secondary to blood loss (chronic) Is this a current diagnosis for this admission?: Yes Plan: Consultation requested from surgicalist for GI endoscopy, treat with Venofer IV (4) Hypothyroidism Qualifiers: 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
[2018-12-23] MEDS ORDERED: DEXTROSE 40% GEL 15 GM TUBE PO PRN ×2 (21:42)
[2018-12-23] MEDS ORDERED: GLUCAGON,HUMAN RECOMB 1 MG INJ IM PRN (21:42)
[2018-12-23] MEDS ORDERED: DEXTROSE 50%-WATER 25 GM/50 ML DISP.SYRIN IV PRN ×2 (21:42)
[2018-12-23] MEDS ORDERED: IRON SUCROSE COMPLEX INJ/PF 100 MG/5 ML SDV IV ONE (22:30)
[2018-12-23] MEDS: INSULIN LISPRO 100 UNIT/ML 3 ML VIAL SUBCUT SCH (22:31)
[2018-12-23] MEDS: LEVOTHYROXINE SODIUM INJ/PF 0.1 MG SDV IV SCH (22:40)
--- NOTE | 2018-12-24 00:56 | PDOC CONSULTATION ---
Consultation Consult Date: 12/24/18 Provider Consulted: ИРИНА HINSON History of Present Illness Admission Date/PCP: 12/20/18 17:37 JEN MAE MD Patient complains of: Anemia, confusion History of Present Illness: GABINO ALEXANDER is a 73 year old female, recently admitted, recent worsening of mental status with confusion, decreased speech, mostly bedbound who has been found to have an anemia with a hemoglobin of 9.2. I been consulted because of the anemia to perform an upper lower endoscopy. Past Medical History Cardiac Medical History: Reports: Congestive Heart Failure, Hypertension, Peripheral Vascular Disease Pulmonary Medical History: Reports: Chronic Obstructive Pulmonary Disease (COPD) - not on home o2, Pneumonia Neurological Medical History: Denies: Seizures Endocrine Medical History: Reports: Diabetes Mellitus Type 2, Hypothyroidism - w/med noncompliance and hx of myxedema coma GI Medical History: Reports: Gastroesophageal Reflux Disease Denies: Crohn's Disease, Ulcerative Colitis Musculoskeltal Medical History: Reports: Arthritis Denies: Gout Skin Medical History: Denies: Eczema, Psoriasis Psychiatric Medical History: Reports: Depression Denies: Bipolar Disorder, Personality Disorder, Schizoaffective Disorder Traumatic Medical History: Denies: Traumatic Brain Injury Past Surgical History Past Surgical History: Reports: Cholecystectomy, Orthopedic Surgery - L Wrist Denies: Hysterectomy Social History Lives with: Family Smoking Status: Former Smoker Electronic Cigarette use?: No Frequency of Alcohol Use: None Hx Recreational Drug Use: No Drugs: None Hx Prescription Drug Abuse: No Family History Family History: None, CAD, DM, Hypertension Parental Family History Reviewed: No Children Family History Reviewed: No Sibling(s) Family History Reviewed.: No Medication/Allergy Home Medications: Acetaminophen [Tylenol 325 mg Tablet] 325 mg PO Q4HP PRN 12/20/18 Buspirone HCl [Buspar 10 mg Tablet] 10 mg PO Q12 12/20/18 Fluticasone/Umeclidin/Vilanter [Trelegy 100-62.5-25 Mcg Ellipta 14 Dose/Dpi] 1 inh IH DAILY 12/20/18 Levothyroxine Sodium [Synthroid] 250 mcg PO DAILY 12/20/18 Duloxetine HCl [Cymbalta 30 mg Capsule.dr] 60 mg PO DAILY 12/21/18 Insulin Glargine,Hum.rec.anlog [Lantus (Pyxis) Insulin 100 Unit/1 ml 10 ml] 30 units SUBCUT QHS 12/21/18 Ipratropium/Albuterol Sulfate [Duoneb 3 ml Ampul] 1 inh IH Q6 PRN 12/21/18 Sitagliptin Phosphate [Januvia 50 mg Tablet] 100 mg PO DAILY 12/21/18 Allergies/Adverse Reactions: melon Allergy (Unknown, Verified 07/02/18 19:17) allopurinol [From Zyloprim] Allergy (Verified 03/06/18 03:47) amitriptyline HCl [From Elavil] Allergy (Verified 03/06/18 03:47) belladonna alkaloids [From Bellergal-S] Allergy (Verified 03/06/18 03:47) cefuroxime axetil [From Ceftin] Allergy (Verified 03/06/18 03:47) celecoxib [From Celebrex] Allergy (Verified 03/06/18 03:47) cimetidine [From Tagamet] Allergy (Verified 03/06/18 03:47) codeine [Codeine] Allergy (Verified 03/06/18 03:47) doxepin HCl [From Sinequan] Allergy (Verified 03/06/18 03:47) ergotamine tartrate [From Bellergal-S] Allergy (Verified 03/06/18 03:47) fluoxetine HCl [From Prozac] Allergy (Verified 03/06/18 03:47) hydroxyzine HCl [From Atarax] Allergy (Verified 03/06/18 03:47) indigotindisulfonic acid [From [place]] Allergy (Verified 03/06/18 03:47) malathion Allergy (Verified 03/06/18 03:47) mefenamic acid Allergy (Verified 03/06/18 03:47) Milk Containing Products Allergy (Verified 03/06/18 03:47) naproxen sodium [From Anaprox] Allergy (Verified 03/06/18 03:47) nefazodone HCl [From Serzone] Allergy (Verified 03/06/18 03:47) phenylephrine tannate [From [place]] Allergy (Verified 03/06/18 03:47) pyrilamine tannate [From [place] CT] Allergy (Verified 03/06/18 03:47) tolterodine tartrate [From Detrol] Allergy (Verified 03/06/18 03:47) trazodone HCl [From Desyrel] Allergy (Verified 03/06/18 03:47) morphine Adverse Reaction (Verified 04/11/18 21:58) renuzil Allergy (Uncoded 01/24/18 17:48) surgical steel Allergy (Uncoded 01/24/18 17:48) Physical Exam Vital Signs: Temp Pulse Resp BP Pulse Ox 98.5 F 52 L 17 153/53 H 96 12/23/18 23:45 12/23/18 23:45 12/23/18 23:45 12/23/18 23:45 12/24/18 00:20 Intake & Output 12/22/18 12/23/18 12/24/18 06:59 06:59 06:59 Intake Total 1910 100 170 Output Total 400 Balance 1510 100 170 Weight 77.5 kg 73.6 kg General appearance: PRESENT: no acute distress, obese, other - Patient lethargic but arousable, no responsive to questions, bedbound Head exam: PRESENT: atraumatic, normocephalic Eye exam: PRESENT: conjunctiva pink Ear exam: PRESENT: normal external ear exam Mouth exam: PRESENT: dry mucosa, neck supple Teeth exam: PRESENT: poor dentation Respiratory exam: PRESENT: clear to auscultation oh, other - Right breast = presence of a large ecchymosis with purple to green discoloration located in the right nipple in the right upper breast area and range ranging from 2:00 to 9:00 o'clock Cardiovascular exam: PRESENT: RRR GI/Abdominal exam: PRESENT: normal bowel sounds, soft Rectal exam: PRESENT: deferred Gentrourinary exam: PRESENT: other - And examined Extremities exam: PRESENT: other - Decreased range of motion Musculoskeletal exam: PRESENT: other - No abnormalities noted Neurological exam: PRESENT: other - Patient obtunded, arousable, not responsive to verbal stimuli, bedbound, disoriented x3 Skin exam: PRESENT: warm, other - Gnosis right breast, see above Results Laboratory Results: 12/23/18 05:13 12/23/18 05:13 12/23/18 12/23/18 12/23/18 05:13 05:13 05:13 WBC 6.3 RBC 4.12 Hgb 9.7 L Hct 31.2 L MCV 76 L MCH 23.5 L MCHC 31.0 L RDW 17.5 H Plt Count 182 Seg Neutrophils % 62.7 Sodium 138.7 Potassium 4.7 Chloride 100 Carbon Dioxide 33 H Anion Gap 6 BUN 13 Creatinine 0.87 Est GFR ( Amer) > 60 Glucose 103 Calcium 9.2 TSH Cancelled Free T4 Cancelled 12/20/18 13:20 CK-MB (CK-2) 2.99 Troponin I 0.025 NT-Pro-B Natriuret Pep 867 H Impressions: Chest X-Ray 12/20/18 14:49 IMPRESSION: Findings are consistent with vascular congestion. Similar findings were noted on prior exam. Head CT 12/20/18 14:49 IMPRESSION: MILD CHRONIC CHANGES OF ATROPHY AND MICROVASCULAR ISCHEMIA. NO ACUTE PROCESS. EVIDENCE OF ACUTE STROKE: NO. Assessment & Plan - Diagnosis (1) Altered mental status Qualifiers: Altered mental status type: unspecified Qualified Code(s): R41.82 - Altered mental status, unspecified Is this a current diagnosis for this admission?: Yes (2) Dementia Qualifiers: Dementia type: Alzheimer's disease Alzheimer's disease onset: other onset Dementia behavioral disturbance: without behavioral disturbance Qualified Code(s): G30.8 - Other Alzheimer's disease; F02.80 - Dementia in other diseases classified elsewhere without behavioral disturbance Is this a current diagnosis for this admission?: Yes (3) Iron deficiency anemia Qualifiers: Iron deficiency anemia type: chronic blood loss Qualified Code(s): D50.0 - Iron deficiency anemia secondary to blood loss (chronic) Is this a current diagnosis for this admission?: Yes - Plan Summary Plan Summary: Assessment: 73-year-old female with recent change in mental status, obtunded, nonresponsive to questions, mostly bedbound Anemia iron deficient with a hemoglobin of 9.2 Hypothyroidism Plan: Due to the severe and recent change of the patient mental status, I do not feel that it is recommended to perform any intervention on this patient particularly if it involves the use of general anesthesia or IV sedation. This is because the administration of neuro pharmacological agents is frown from complications ranging from aspiration pneumonia, stroke, and , and others. I will sign off; please, call me back once the patient neurological status improves. At that time, I will be available to perform an upper and lower endoscopy.
[2018-12-24] MEDS: PANTOPRAZOLE SODIUM 40 MG TABLET.DR PO SCH ×2 (05:56→17:25)
[2018-12-24 07:19] LABS: FREE T4 (FREE THYROXINE) 1.14 ng/dL (0.78-2.19)
[2018-12-24 07:26] LABS: ANION GAP 10 (5-19); BLOOD UREA NITROGEN 16 mg/dL (7-20); CALCIUM 9.6 mg/dL (8.4-10.2); CARBON DIOXIDE 28 mmol/L (22-30); CHLORIDE 99 mmol/L (98-107); GLUCOSE 92 mg/dL (75-110); POTASSIUM 4.7 mmol/L (3.6-5.0)
[2018-12-24 07:33] LABS: THYROID STIMULATING HORMONE 18.3 uIU/mL (0.47-4.68)
[2018-12-24] MEDS: INSULIN LISPRO 100 UNIT/ML 3 ML VIAL SUBCUT SCH ×4 (09:01→21:45)
[2018-12-24] MEDS: DOCUSATE SODIUM 100 MG/10 ML UDC PO SCH ×2 (10:29→17:25)
[2018-12-24] MEDS: ENOXAPARIN SODIUM INJ 40 MG/0.4 ML DISP.SYRIN SUBCUT SCH (10:29)
[2018-12-24] MEDS: LEVOTHYROXINE SODIUM INJ/PF 0.1 MG SDV IV SCH (17:29)
--- NOTE | 2018-12-24 20:39 | PDOC PROGRESS REPORT ---
Subjective Progress Note for:: 12/24/18 Subjective:: Patient was seen today by the bedside she is alert but there is no meaningful purposeful response to verbal commands. When I saw her yesterday she was very sleepy but arousable and confused today she is alert but does not respond. The differential diagnosis would include progressive dementia, she has underlying dementia, unfortunately she has no family member Responsible enough to assist her at home. The daughter is in intermediate, the grandson is at home arrest, clearly she is not adherent to her medication, she has underlining hypothyroidism and clearly she is not taking the Synthroid appropriately as prescribed.The last time she was admitted disposition was a challenge, it is even more challenging now than the last admission. I believe what we are experiencing now is progressive dementia rather than delirium or encephalopathy all these different word are semantics, The bottom line is this patient cannot independently function socially and psychologically ,this is consistent with dementia. Discharge planning also needs to get involve in this case to arrange for placement I do not see any other option, to discharge her home is a recipe for readmission within 30 days of discharge. Reason For Visit: ALTERED MENTAL STATUS,HYPOTHYROIDISM,LOCALIZED Physical Exam Vital Signs: Temp Pulse Resp BP Pulse Ox 98.1 F 43 L 16 125/74 93 12/24/18 19:48 12/24/18 19:48 12/24/18 19:48 12/24/18 19:48 12/24/18 19:48 Intake & Output 12/23/18 12/24/18 12/25/18 06:59 06:59 06:59 Intake Total 100 410 0 Balance 100 410 0 Weight 73.6 kg 76.7 kg General appearance: PRESENT: no acute distress Eye exam: PRESENT: PERRLA Respiratory exam: PRESENT: clear to auscultation oh Cardiovascular exam: PRESENT: +S1, +S2 GI/Abdominal exam: PRESENT: soft Neurological exam: PRESENT: alert Psychiatric exam: PRESENT: flat affect Results Laboratory Results: 12/23/18 05:13 12/24/18 06:06 12/23/18 12/24/18 12/24/18 05:13 06:06 06:06 Sodium 137.4 Potassium 4.7 Chloride 99 Carbon Dioxide 28 Anion Gap 10 BUN 16 Creatinine 0.93 Est GFR ( Amer) > 60 Glucose 92 Calcium 9.6 TSH Cancelled 18.30 H Free T4 Cancelled 1.14 12/20/18 13:20 CK-MB (CK-2) 2.99 Troponin I 0.025 NT-Pro-B Natriuret Pep 867 H Impressions: Chest X-Ray 12/20/18 14:49 IMPRESSION: Findings are consistent with vascular congestion. Similar findings were noted on prior exam. Head CT 12/20/18 14:49 IMPRESSION: MILD CHRONIC CHANGES OF ATROPHY AND MICROVASCULAR ISCHEMIA. NO ACUTE PROCESS. EVIDENCE OF ACUTE STROKE: NO. Assessment & Plan - Diagnosis (1) Acute encephalopathy Is this a current diagnosis for this admission?: Yes (2) Dementia Qualifiers: Dementia type: Alzheimer's disease Alzheimer's disease onset: other onset Dementia behavioral disturbance: without behavioral disturbance Qualified Code(s): G30.8 - Other Alzheimer's disease; F02.80 - Dementia in other diseases classified elsewhere without behavioral disturbance Is this a current diagnosis for this admission?: Yes (3) Iron deficiency anemia Qualifiers: Iron deficiency anemia type: chronic blood loss Qualified Code(s): D50.0 - Iron deficiency anemia secondary to blood loss (chronic) Is this a current diagnosis for this admission?: Yes Plan: She was seen by the surgeon, the surgery was, consulted for possible colonoscopy and upper endoscopy for evaluation of iron deficiency anemia. 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 Qualified Code(s): E03 .8 - Other specified hypothyroidism; E06.3 - Autoimmune thyroiditis Is this a current diagnosis for this admission?: Yes (5) Chronic obstructive pulmonary disease (COPD) Qualifiers: Is this a current diagnosis for this admission?: Yes (6) Telangiectasia of colon Is this a current diagnosis for this admission?: Yes (7) Type 2 diabetes mellitus Qualifiers: Diabetes mellitus ferry terminal supervisor insulin use: without ferry terminal supervisor use Diabetes mellitus complication status: with neurologic complications Diabetes mellitus complication detail: with polyneuropathy Qualified Code(s): E11.42 - Type 2 diabetes mellitus with diabetic polyneuropathy Is this a current diagnosis for this admission?: Yes - Time Time Spent with patient: 35 or more minutes Level of Care: [facility]
[2018-12-25] MEDS: PANTOPRAZOLE SODIUM 40 MG TABLET.DR PO SCH ×2 (06:00→18:36)
[2018-12-25 07:14] LABS: ANION GAP 13 (5-19); BLOOD UREA NITROGEN 18 mg/dL (7-20); CALCIUM 9.7 mg/dL (8.4-10.2); CARBON DIOXIDE 28 mmol/L (22-30); CHLORIDE 98 mmol/L (98-107); GLUCOSE 125 mg/dL (75-110); POTASSIUM 4.9 mmol/L (3.6-5.0)
[2018-12-25] MEDS: INSULIN LISPRO 100 UNIT/ML 3 ML VIAL SUBCUT SCH ×4 (09:21→21:34)
[2018-12-25] MEDS: DOCUSATE SODIUM 100 MG/10 ML UDC PO SCH ×2 (09:22→18:36)
[2018-12-25] MEDS: ENOXAPARIN SODIUM INJ 40 MG/0.4 ML DISP.SYRIN SUBCUT SCH (09:22)
[2018-12-25] MEDS: LEVOTHYROXINE SODIUM INJ/PF 0.1 MG SDV IV SCH (18:57)
--- NOTE | 2018-12-25 20:31 | PDOC PROGRESS REPORT ---
Subjective Progress Note for:: 12/25/18 Subjective:: Patient seen by the bedside, alert she tries to respond to verbal commands but the language is uninterpretable. Spoke to discharge planning about disposition, spoke to the grandson, he was supposed to meet with me in the hospital to discuss CODE STATUS, palliative care consultation requested. Reason For Visit: ALTERED MENTAL STATUS,HYPOTHYROIDISM,LOCALIZED Physical Exam Vital Signs: Temp Pulse Resp BP Pulse Ox 98.5 F 58 L 18 132/58 H 96 12/25/18 15:08 12/25/18 19:00 12/25/18 15:08 12/25/18 15:08 12/25/18 15:08 Intake & Output 12/24/18 12/25/18 12/26/18 06:59 06:59 06:59 Intake Total 410 0 0 Balance 410 0 0 Weight 76.7 kg 76.2 kg General appearance: PRESENT: no acute distress Eye exam: PRESENT: PERRLA Respiratory exam: PRESENT: clear to auscultation oh Cardiovascular exam: PRESENT: +S1, +S2 GI/Abdominal exam: PRESENT: soft Neurological exam: PRESENT: alert Results Laboratory Results: 12/23/18 05:13 12/25/18 04:40 12/25/18 04:40 Sodium 138.7 Potassium 4.9 Chloride 98 Carbon Dioxide 28 Anion Gap 13 BUN 18 Creatinine 1.07 Est GFR ( Amer) > 60 Glucose 125 H Calcium 9.7 12/20/18 19:40 Blood Blood Culture - Final NO GROWTH IN 5 DAYS 12/20/18 18:06 Blood Blood Culture - Final NO GROWTH IN 5 DAYS 12/20/18 13:20 CK-MB (CK-2) 2.99 Troponin I 0.025 NT-Pro-B Natriuret Pep 867 H Impressions: Chest X-Ray 12/20/18 14:49 IMPRESSION: Findings are consistent with vascular congestion. Similar findings were noted on prior exam. Head CT 12/20/18 14:49 IMPRESSION: MILD CHRONIC CHANGES OF ATROPHY AND MICROVASCULAR ISCHEMIA. NO ACUTE PROCESS. EVIDENCE OF ACUTE STROKE: NO. Assessment & Plan - Diagnosis (1) Acute encephalopathy Is this a current diagnosis for this admission?: Yes (2) Dementia Qualifiers: Dementia type: Alzheimer's disease Alzheimer's disease onset: other onset Dementia behavioral disturbance: without behavioral disturbance Qualified Code(s): G30.8 - Other Alzheimer's disease; F02.80 - Dementia in other diseases classified elsewhere without behavioral disturbance Is this a current diagnosis for this admission?: Yes Plan: She has dementia, progressive (3) Iron deficiency anemia Qualifiers: Iron deficiency anemia type: chronic blood loss Qualified Code(s): D50.0 - Iron deficiency anemia secondary to blood loss (chronic) Is this a current diagnosis for this admission?: Yes (4) Hypothyroidism Qualifiers: 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 Qualified Code(s): E03.8 - Other specified hypothyroidism; E06.3 - Autoimmune thyroiditis Is this a current diagnosis for this admission?: Yes (5) Chronic obstructive pulmonary disease (COPD) Qualifiers: Is this a current diagnosis for this admission?: Yes (6) Telangiectasia of colon Is this a current diagnosis for this admission?: Yes (7) Type 2 diabetes mellitus Qualifiers: Diabetes mellitus intermediate teacher insulin use: without intermediate teacher use Diabetes mellitus complication status: with neurologic complications Diabetes mellitus complication detail: with polyneuropathy Qualified Code(s): E11.42 - Type 2 diabetes mellitus with diabetic polyneuropathy Is this a current diagnosis for this admission?: Yes - Time Time Spent with patient: 35 or more minutes
[2018-12-26] MEDS: PANTOPRAZOLE SODIUM 40 MG TABLET.DR PO SCH ×2 (05:14→18:01)
[2018-12-26] MEDS: INSULIN LISPRO 100 UNIT/ML 3 ML VIAL SUBCUT SCH ×3 (10:38→21:21)
[2018-12-26] MEDS: ENOXAPARIN SODIUM INJ 40 MG/0.4 ML DISP.SYRIN SUBCUT SCH (10:42)
[2018-12-26] MEDS: DOCUSATE SODIUM 100 MG/10 ML UDC PO SCH ×2 (10:47→18:03)
[2018-12-26] MEDS: LEVOTHYROXINE SODIUM INJ/PF 0.1 MG SDV IV SCH (18:07)
--- NOTE | 2018-12-26 19:41 | PDOC PROGRESS REPORT ---
Subjective Progress Note for:: 12/26/18 Subjective:: Patient seen at the bedside she is alert today still confused, disoriented to place time and person Reason For Visit: ALTERED MENTAL STATUS,HYPOTHYROIDISM,LOCALIZED Physical Exam Vital Signs: Temp Pulse Resp BP Pulse Ox 98.0 F 56 L 17 124/46 L 99 12/26/18 15:24 12/26/18 15:24 12/26/18 15:24 12/26/18 15:24 12/26/18 15:24 Intake & Output 12/25/18 12/26/18 12/27/18 06:59 06:59 06:59 Intake Total 0 150 620 Output Total 0 Balance 0 150 620 Weight 76.2 kg 71.9 kg General appearance: PRESENT: no acute distress Eye exam: PRESENT: PERRLA Respiratory exam: PRESENT: clear to auscultation oh Cardiovascular exam: PRESENT: +S1, +S2 GI/Abdominal exam: PRESENT: soft Neurological exam: PRESENT: alert Results Laboratory Results: 12/23/18 05:13 12/25/18 04:40 12/20/18 19:40 Blood Blood Culture - Final NO GROWTH IN 5 DAYS 12/20/18 18:06 Blood Blood Culture - Final NO GROWTH IN 5 DAYS 12/20/18 13:20 CK-MB (CK-2) 2.99 Troponin I 0.025 NT-Pro-B Natriuret Pep 867 H Impressions: Chest X-Ray 12/20/18 14:49 IMPRESSION: Findings are consistent with vascular congestion. Similar findings were noted on prior exam. Head CT 12/20/18 14:49 IMPRESSION: MILD CHRONIC CHANGES OF ATROPHY AND MICROVASCULAR ISCHEMIA. NO ACUTE PROCESS. EVIDENCE OF ACUTE STROKE: NO. Assessment & Plan - Diagnosis (1) Acute encephalopathy Is this a current diagnosis for this admission?: Yes (2) Dementia Qualifiers: Dementia type: Alzheimer's disease Alzheimer's disease onset: other onset Dementia behavioral disturbance: without behavioral disturbance Qualified Code(s): G30.8 - Other Alzheimer's disease; F02.80 - Dementia in other diseases classified elsewhere without behavioral disturbance Is this a current diagnosis for this admission?: Yes Plan: She has dementia, progressive (3) Iron deficiency anemia Qualifiers: Iron deficiency anemia type: chronic blood loss Qualified Code(s): D50.0 - Iron deficiency anemia secondary to blood loss (chronic) Is this a current diagnosis for this admission?: Yes (4) Hypothyroidism Qualifiers: 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 Qualified Code(s): E03.8 - Other specified hypothyroidism; E06.3 - Autoimmune thyroiditis Is this a current diagnosis for this admission?: Yes Plan: Continue IV Synthroid (5) Chronic obstructive pulmonary disease (COPD) Qualifiers: Is this a current diagnosis for this admission?: Yes (6) Telangiectasia of colon Is this a current diagnosis for this admission?: Yes (7) Type 2 diabetes mellitus Qualifiers: Diabetes mellitus [facility] insulin use: without [facility] use Diabetes mellitus complication status: with neurologic complications Diabetes mellitus complication detail: with polyneuropathy Qualified Code(s): E11.42 - Type 2 diabetes mellitus with diabetic polyneuropathy Is this a current diagnosis for this admission?: Yes - Time Time Spent with patient: 15-24 minutes Level of Care: [facility]
[2018-12-26] MEDS: ACETAMINOPHEN 325 MG TABLET PO PRN (23:11)
[2018-12-27] MEDS: PANTOPRAZOLE SODIUM 40 MG TABLET.DR PO SCH (05:52)
[2018-12-27] MEDS: INSULIN LISPRO 100 UNIT/ML 3 ML VIAL SUBCUT SCH ×4 (07:56→21:44)
[2018-12-27] MEDS: DOCUSATE SODIUM 100 MG/10 ML UDC PO SCH (15:56)
[2018-12-27] MEDS: ENOXAPARIN SODIUM INJ 40 MG/0.4 ML DISP.SYRIN SUBCUT SCH (15:57)
--- NOTE | 2018-12-27 20:26 | PDOC PROGRESS REPORT ---
Subjective Progress Note for:: 12/27/18 Subjective:: Patient seen by the bedside, she remains confused though she is alert Reason For Visit: ALTERED MENTAL STATUS,HYPOTHYROIDISM,LOCALIZED Physical Exam Vital Signs: Temp Pulse Resp BP Pulse Ox 99.0 F 52 L 16 102/57 L 93 12/27/18 15:32 12/27/18 15:32 12/27/18 15:32 12/27/18 15:32 12/27/18 15:32 Intake & Output 12/26/18 12/27/18 12/28/18 06:59 06:59 06:59 Intake Total 150 620 120 Output Total 0 Balance 150 620 120 Weight 71.9 kg 73.1 kg 73.1 kg General appearance: PRESENT: no acute distress Eye exam: PRESENT: PERRLA Respiratory exam: PRESENT: clear to auscultation oh Cardiovascular exam: PRESENT: +S1, +S2 GI/Abdominal exam: PRESENT: soft Neurological exam: PRESENT: alert Results Laboratory Results: 12/23/18 05:13 12/25/18 04:40 12/20/18 13:20 CK-MB (CK-2) 2.99 Troponin I 0.025 NT-Pro-B Natriuret Pep 867 H Impressions: Chest X-Ray 12/20/18 14:49 IMPRESSION: Findings are consistent with vascular congestion. Similar findings were noted on prior exam. Head CT 12/20/18 14:49 IMPRESSION: MILD CHRONIC CHANGES OF ATROPHY AND MICROVASCULAR ISCHEMIA. NO ACUTE PROCESS. EVIDENCE OF ACUTE STROKE: NO. Assessment & Plan - Diagnosis (1) Acute encephalopathy Is this a current diagnosis for this admission?: Yes (2) Dementia Qualifiers: Dementia type: Alzheimer's disease Alzheimer's disease onset: other onset Dementia behavioral disturbance: without behavioral disturbance Qualified Code(s): G30.8 - Other Alzheimer's disease; F02.80 - Dementia in other diseases classified elsewhere without behavioral disturbance Is this a current diagnosis for this admission?: Yes (3) Iron deficiency anemia Qualifiers: Iron deficiency anemia type: chronic blood loss Qualified Code(s): D50.0 - Iron deficiency anemia secondary to blood loss (chronic) Is this a current diagnosis for this admission?: Yes (4) Hypothyroidism Qualifiers: 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 Qualified Code(s): E03.8 - Other specified hypothyroidism; E06.3 - Autoimmune thyroiditis Is this a current diagnosis for this admission?: Yes (5) Chronic obstructive pulmonary disease (COPD) Qualifiers: Is this a current diagnosis for this admission?: Yes (6) Telangiectasia of colon Is this a current diagnosis for this admission?: Yes (7) Type 2 diabetes mellitus Qualifiers: Diabetes mellitus adjunct faculty for medical terminology insulin use: without adjunct faculty for medical terminology use Diabetes mellitus complication status: with neurologic complications Diabetes mellitus complication detail: with polyneuropathy Qualified Code(s): E11.42 - Type 2 diabetes mellitus with diabetic polyneuropathy Is this a current diagnosis for this admission?: Yes - Time Time Spent with patient: 35 or more minutes - Plan Summary Plan Summary: Patient seen by the bedside, disposition will be challenging
[2018-12-27 21:03] LABS: ABSOLUTE BASOPHILS # (AUTO) 0.1 10^3/uL (0.0-0.2); ABSOLUTE EOSINOPHILS # (AUTO) 0.1 10^3/uL (0.0-0.6); ABSOLUTE LYMPHOCYTES (AUTO) 2.4 10^3/uL (0.5-4.7); ABSOLUTE MONOCYTES (AUTO) 0.9 10^3/uL (0.1-1.4); BASOPHILS % (AUTO) 1.2 % (0-2); EOSINOPHILS % (AUTO) 1.2 % (0-6); HEMATOCRIT 34.8 % (36.0-47.0); HEMOGLOBIN 10.8 g/dL (12.0-15.5); LYMPHOCYTES % (AUTO) 28.6 % (13-45); MEAN CORPUSCULAR HEMOGLOBIN 23.8 pg (27.0-33.4); MEAN CORPUSCULAR HGB CONC 31.2 g/dL (32.0-36.0); MEAN CORPUSCULAR VOLUME 76 fl (80-97); MONOCYTES % (AUTO) 10.4 % (3-13); PLATELET COUNT 155 10^3/uL (150-450); RED BLOOD COUNT 4.56 10^6/uL (3.72-5.28); RED CELL DISTRIBUTION WIDTH 17.9 % (11.5-14.0); SEGMENTED NEUTROPHILS % (AUTO) 58.6 % (42-78); TOTAL CELLS COUNTED % (AUTO) 100 %; WHITE BLOOD COUNT 8.5 10^3/uL (4.0-10.5)
[2018-12-27 21:21] LABS: ALBUMIN 3.9 g/dL (3.5-5.0); ALKALINE PHOSPHATASE 58 U/L (38-126); ANION GAP 11 (5-19); ASPARTATE AMINO TRANSFERASE 22 U/L (14-36); BILIRUBIN,DIRECT 0.1 mg/dL (0.0-0.4); BILIRUBIN,TOTAL 0.5 mg/dL (0.2-1.3); BLOOD UREA NITROGEN 27 mg/dL (7-20); CALCIUM 9.3 mg/dL (8.4-10.2); CARBON DIOXIDE 28 mmol/L (22-30); CHLORIDE 96 mmol/L (98-107); GLUCOSE 128 mg/dL (75-110); POTASSIUM 3.9 mmol/L (3.6-5.0); TOTAL PROTEIN 7.1 g/dL (6.3-8.2)
[2018-12-28 05:04] LABS: ABSOLUTE BASOPHILS # (AUTO) 0.1 10^3/uL (0.0-0.2); ABSOLUTE EOSINOPHILS # (AUTO) 0.2 10^3/uL (0.0-0.6); ABSOLUTE LYMPHOCYTES (AUTO) 2.6 10^3/uL (0.5-4.7); ABSOLUTE MONOCYTES (AUTO) 0.8 10^3/uL (0.1-1.4); ABSOLUTE NEUT (AUTO) 3.9 10^3/uL (1.7-8.2); BASOPHILS % (AUTO) 0.7 % (0-2); EOSINOPHILS % (AUTO) 2.1 % (0-6); HEMATOCRIT 34.5 % (36.0-47.0); HEMOGLOBIN 10.9 g/dL (12.0-15.5); MEAN CORPUSCULAR HEMOGLOBIN 23.9 pg (27.0-33.4); MEAN CORPUSCULAR HGB CONC 31.5 g/dL (32.0-36.0); MEAN CORPUSCULAR VOLUME 76 fl (80-97); MONOCYTES % (AUTO) 10.2 % (3-13); PLATELET COUNT 162 10^3/uL (150-450); RED BLOOD COUNT 4.54 10^6/uL (3.72-5.28); TOTAL CELLS COUNTED % (AUTO) 100 %; WHITE BLOOD COUNT 7.4 10^3/uL (4.0-10.5)
[2018-12-28] MEDS: PANTOPRAZOLE SODIUM 40 MG TABLET.DR PO SCH ×3 (05:13→19:12)
[2018-12-28] MEDS: ACETAMINOPHEN 325 MG TABLET PO PRN ×2 (05:13→21:10)
[2018-12-28 05:18] LABS: ALBUMIN 4.2 g/dL (3.5-5.0); ALKALINE PHOSPHATASE 63 U/L (38-126); ANION GAP 11 (5-19); ASPARTATE AMINO TRANSFERASE 22 U/L (14-36); BILIRUBIN,DIRECT 0.1 mg/dL (0.0-0.4); BILIRUBIN,TOTAL 0.4 mg/dL (0.2-1.3); BLOOD UREA NITROGEN 30 mg/dL (7-20); CALCIUM 9.4 mg/dL (8.4-10.2); CARBON DIOXIDE 28 mmol/L (22-30); CHLORIDE 95 mmol/L (98-107); GLUCOSE 106 mg/dL (75-110); POTASSIUM 3.9 mmol/L (3.6-5.0); TOTAL PROTEIN 7.7 g/dL (6.3-8.2)
--- NOTE | 2018-12-28 14:40 | PDOC PROGRESS REPORT ---
Subjective Progress Note for:: 12/28/18 Subjective:: Patient remained pleasantly confused, but she is more engaging today compared to the last few days, she will be downgraded to medical floor. Disposition will be very challenging for this patient especially with her dementia Reason For Visit: ALTERED MENTAL STATUS,HYPOTHYROIDISM,LOCALIZED Physical Exam Vital Signs: Temp Pulse Resp BP Pulse Ox 97.4 F 48 L 20 119/50 L 100 12/28/18 04:00 12/28/18 07:00 12/28/18 04:00 12/28/18 04:00 12/28/18 07:55 Intake & Output 12/27/18 12/28/18 12/29/18 06:59 06:59 06:59 Intake Total 620 1044 Output Total 0 Balance 620 1044 Weight 73.1 kg 71.9 kg General appearance: PRESENT: no acute distress Eye exam: PRESENT: PERRLA Respiratory exam: PRESENT: clear to auscultation oh Cardiovascular exam: PRESENT: +S1, +S2 GI/Abdominal exam: PRESENT: soft Neurological exam: PRESENT: alert Results Laboratory Results: 12/28/18 04:42 12/28/18 04:42 12/27/18 12/27/18 12/28/18 20:52 20:52 04:42 WBC 8.5 7.4 RBC 4.56 4.54 Hgb 10.8 L 10.9 L Hct 34.8 L 34.5 L MCV 76 L 76 L MCH 23.8 L 23.9 L MCHC 31.2 L 31.5 L RDW 17.9 H 18.0 H Plt Count 155 162 Seg Neutrophils % 58.6 52.0 Sodium 134.6 L Potassium 3.9 Chloride 96 L Carbon Dioxide 28 Anion Gap 11 BUN 27 H Creatinine 1.23 Est GFR ( Amer) 52 L Glucose 128 H Calcium 9.3 Total Bilirubin 0.5 AST 22 Alkaline Phosphatase 58 Total Protein 7.1 Albumin 3.9 12/28/18 04:42 WBC RBC Hgb Hct MCV MCH MCHC RDW Plt Count Seg Neutrophils % Sodium 134.3 L Potassium 3.9 Chloride 95 L Carbon Dioxide 28 Anion Gap 11 BUN 30 H Creatinine 1.22 Est GFR ( Amer) 52 L Glucose 106 Calcium 9.4 Total Bilirubin 0.4 AST 22 Alkaline Phosphatase 63 Total Protein 7.7 Albumin 4.2 12/20/18 13:20 CK-MB (CK-2) 2.99 Troponin I 0.025 NT-Pro-B Natriuret Pep 867 H Impressions: Chest X-Ray 12/20/18 14:49 IMPRESSION: Findings are consistent with vascular congestion. Similar findings were noted on prior exam. Head CT 12/20/18 14:49 IMPRESSION: MILD CHRONIC CHANGES OF ATROPHY AND MICROVASCULAR ISCHEMIA. NO ACUTE PROCESS. EVIDENCE OF ACUTE STROKE: NO. Assessment & Plan - Diagnosis (1) Acute encephalopathy Is this a current diagnosis for this admission?: Yes (2) Dementia Qualifiers: Dementia type: Alzheimer's disease Alzheimer's disease onset: other onset Dementia behavioral disturbance: without behavioral disturbance Qualified Code(s): G30.8 - Other Alzheimer's disease; F02.80 - Dementia in other diseases classified elsewhere without behavioral disturbance Is this a current diagnosis for this admission?: Yes (3) Iron deficiency anemia Qualifiers: Iron deficiency anemia type: chronic blood loss Qualified Code(s): D50.0 - Iron deficiency anemia secondary to blood loss (chronic) Is this a current diagnosis for this admission?: Yes Plan: Give iron infusion (4) Hypothyroidism Qualifiers: 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42 - Type 2 diabetes mellitus with diabetic polyneuropathy Is this a current diagnosis for this admission?: Yes - Time Time Spent with patient: 35 or more minutes Level of Care: IMCU - Plan Summary Plan Summary: Downgrade to medical floor
[2018-12-28] MEDS ORDERED: IRON SUCROSE COMPLEX INJ/PF 100 MG/5 ML SDV IV ONE (15:30)
[2018-12-28] MEDS: INSULIN LISPRO 100 UNIT/ML 3 ML VIAL SUBCUT SCH ×4 (19:02→21:09)
[2018-12-28] MEDS: DOCUSATE SODIUM 100 MG/10 ML UDC PO SCH ×3 (19:06→19:12)
[2018-12-28] MEDS: ENOXAPARIN SODIUM INJ 40 MG/0.4 ML DISP.SYRIN SUBCUT SCH (19:10)
[2018-12-29] MEDS: PANTOPRAZOLE SODIUM 40 MG TABLET.DR PO SCH (05:12)
[2018-12-29] MEDS: INSULIN LISPRO 100 UNIT/ML 3 ML VIAL SUBCUT SCH ×4 (09:45→21:46)
[2018-12-29] MEDS: DOCUSATE SODIUM 100 MG/10 ML UDC PO SCH ×2 (09:46→17:35)
[2018-12-29] MEDS: ENOXAPARIN SODIUM INJ 40 MG/0.4 ML DISP.SYRIN SUBCUT SCH (09:47)
--- NOTE | 2018-12-29 14:44 | PDOC PROGRESS REPORT ---
Subjective Progress Note for:: 12/29/18 Subjective:: She was seen by the bedside, she has iron deficiency anemia, she was prescribed Venofer but she never received it, consultation was requested from surgery for colonoscopy and EGD because of the iron deficiency anemia this was not done at the time it was requested because she was very confused at that time. She is stable at the moment to have the procedure done before discharge. Disposition remains a challenge for this patient because she has underlining dementia Reason For Visit: ALTERED MENTAL STATUS,HYPOTHYROIDISM,LOCALIZED Physical Exam Vital Signs: Temp Pulse Resp BP Pulse Ox 97.3 F 53 L 16 130/48 H 96 12/29/18 12:01 12/29/18 14:00 12/29/18 12:01 12/29/18 12:01 12/29/18 12:29 Intake & Output 12/28/18 12/29/18 12/30/18 06:59 06:59 06:59 Intake Total 1044 940 Output Total 0 Balance 1044 940 Weight 71.9 kg 71.5 kg General appearance: PRESENT: no acute distress Eye exam: PRESENT: PERRLA Respiratory exam: PRESENT: clear to auscultation oh Cardiovascular exam: PRESENT: +S1, +S2 GI/Abdominal exam: PRESENT: soft Neurological exam: PRESENT: alert, CN II-XII grossly intact Results Laboratory Results: 12/28/18 04:42 12/28/18 04:42 12/20/18 13:20 CK-MB (CK-2) 2.99 Troponin I 0.025 NT-Pro-B Natriuret Pep 867 H Impressions: Chest X-Ray 12/20/18 14:49 IMPRESSION: Findings are consistent with vascular congestion. Similar findings were noted on prior exam. Head CT 12/20/18 14:49 IMPRESSION: MILD CHRONIC CHANGES OF ATROPHY AND MICROVASCULAR ISCHEMIA. NO ACUTE PROCESS. EVIDENCE OF ACUTE STROKE: NO. Assessment & Plan - Diagnosis (1) Acute encephalopathy Is this a current diagnosis for this admission?: Yes (2) Dementia Qualifiers: Dementia type: Alzheimer's disease Alzheimer's disease onset: other onset Dementia behavioral disturbance: without behavioral disturbance Qualified Code(s): G30.8 - Other Alzheimer's disease; F02.80 - Dementia in other diseases classified elsewhere without behavioral disturbance Is this a current diagnosis for this admission?: Yes (3) Iron deficiency anemia Qualifiers: Iron deficiency anemia type: chronic blood loss Qualified Code(s): D50.0 - Iron deficiency anemia secondary to blood loss (chronic) Is this a current diagnosis for this admission?: Yes Plan: She has iron deficiency anemia, I ordered intravenous Venofer but it was not given to the patient (4) Hypothyroidism Qualifiers: 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 Qualified Code(s): E03.8 - Other specified hypothyroidism; E06.3 - Autoimmune thyroiditis Is this a current diagnosis for this admission?: Yes (5) Chronic obstructive pulmonary disease (COPD) Qualifiers: Is this a current diagnosis for this admission?: Yes (6) Telangiectasia of colon Is this a current diagnosis for this admission?: Yes (7) Type 2 diabetes mellitus Qualifiers: Diabetes mellitus intermediate insulin use: without manager intermediate use Diabetes mellitus complication status: with neurologic complications Diabetes mellitus complication detail: with polyneuropathy Qualified Code(s): E11.42 - Type 2 diabetes mellitus with diabetic polyneuropathy Is this a current diagnosis for this admission?: Yes (8) Hypothyroidism Qualifiers: 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
[2018-12-29] MEDS: LEVOTHYROXINE SODIUM 0.1 MG TABLET PO SCH (15:07)
[2018-12-29] MEDS ORDERED: IRON SUCROSE COMPLEX INJ/PF 100 MG/5 ML SDV IV ONE (16:00)
[2018-12-29] MEDS: ACETAMINOPHEN 325 MG TABLET PO PRN (20:14)
[2018-12-30] MEDS: ACETAMINOPHEN 325 MG TABLET PO PRN ×2 (00:24→19:16)
[2018-12-30] MEDS: LEVOTHYROXINE SODIUM 0.1 MG TABLET PO SCH (05:39)
[2018-12-30] MEDS: INSULIN LISPRO 100 UNIT/ML 3 ML VIAL SUBCUT SCH ×4 (08:43→22:48)
[2018-12-30] MEDS: DOCUSATE SODIUM 100 MG/10 ML UDC PO SCH ×2 (09:45→18:44)
[2018-12-30] MEDS: PANTOPRAZOLE SODIUM 40 MG TABLET.DR PO SCH (09:48)
[2018-12-30] MEDS: ENOXAPARIN SODIUM INJ 40 MG/0.4 ML DISP.SYRIN SUBCUT SCH (09:48)
--- NOTE | 2018-12-30 21:10 | PDOC PROGRESS REPORT ---
Subjective Progress Note for:: 12/30/18 Subjective:: Patient seen by the bedside, she is very lucid today able to carry out a conversation in a very reasonable fashion, she said she does not know what happened that it was very strange, she does not understand how she revolve between lucidity and confusion every so often. Reason For Visit: ALTERED MENTAL STATUS,HYPOTHYROIDISM,LOCALIZED Physical Exam Vital Signs: Temp Pulse Resp BP Pulse Ox 97.5 F 51 L 13 107/41 L 98 12/30/18 19:59 12/30/18 19:59 12/30/18 19:59 12/30/18 19:59 12/30/18 19:59 Intake & Output 12/29/18 12/30/18 12/31/18 06:59 06:59 06:59 Intake Total 940 904 835 Output Total 3000 Balance 940 904 -2165 Weight 71.5 kg 71.8 kg General appearance: PRESENT: no acute distress Eye exam: PRESENT: PERRLA Cardiovascular exam: PRESENT: +S1, +S2 GI/Abdominal exam: PRESENT: soft Neurological exam: PRESENT: alert, CN II-XII grossly intact Results Laboratory Results: 12/28/18 04:42 12/28/18 04:42 12/20/18 13:20 CK-MB (CK-2) 2.99 Troponin I 0.025 NT-Pro-B Natriuret Pep 867 H Impressions: Chest X-Ray 12/20/18 14:49 IMPRESSION: Findings are consistent with vascular congestion. Similar findings were noted on prior exam. Head CT 12/20/18 14:49 IMPRESSION: MILD CHRONIC CHANGES OF ATROPHY AND MICROVASCULAR ISCHEMIA. NO ACUTE PROCESS. EVIDENCE OF ACUTE STROKE: NO. Assessment & Plan - Diagnosis (1) Acute encephalopathy Is this a current diagnosis for this admission?: Yes (2) Dementia Qualifiers: Dementia type: Alzheimer's disease Alzheimer's disease onset: other onset Dementia behavioral disturbance: without behavioral disturbance Qualified Code(s): G30.8 - Other Alzheimer's disease; F02.80 - Dementia in other diseases classified elsewhere without behavioral disturbance Is this a current diagnosis for this admission?: Yes (3) Iron deficiency anemia Qualifiers: Iron deficiency anemia type: chronic blood loss Qualified Code(s): D50.0 - Iron deficiency anemia secondary to blood loss (chronic) Is this a current diagnosis for this admission?: Yes (4) Hypothyroidism Qualifiers: 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 Qualified Code(s): E03.8 - Other specified hypothyroidism; E06.3 - Autoimmune thyroiditis Is this a current diagnosis for this admission?: Yes (5) Chronic obstructive pulmonary disease (COPD) Qualifiers: Is this a current diagnosis for this admission?: Yes (6) Telangiectasia of colon Is this a current diagnosis for this admission?: Yes (7) Type 2 diabetes mellitus Qualifiers: Diabetes mellitus termite technician insulin use: without termite technician use Diabetes rosio litus complication status: with neurologic complications Diabetes mellitus complication detail: with polyneuropathy Qualified Code(s): E11.42 - Type 2 diabetes mellitus with diabetic polyneuropathy Is this a current diagnosis for this admission?: Yes (8) Hypothyroidism Qualifiers: 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
[2018-12-31] MEDS: LEVOTHYROXINE SODIUM 0.1 MG TABLET PO SCH (05:36)
[2018-12-31] MEDS: ENOXAPARIN SODIUM INJ 40 MG/0.4 ML DISP.SYRIN SUBCUT SCH (09:47)
[2018-12-31] MEDS: DOCUSATE SODIUM 100 MG/10 ML UDC PO SCH ×2 (09:47→17:42)
[2018-12-31] MEDS: INSULIN LISPRO 100 UNIT/ML 3 ML VIAL SUBCUT SCH ×4 (09:47→22:00)
[2018-12-31] MEDS: PANTOPRAZOLE SODIUM 40 MG TABLET.DR PO SCH (09:49)
[2018-12-31] MEDS: ACETAMINOPHEN 325 MG TABLET PO PRN ×2 (09:49→19:26)
--- NOTE | 2018-12-31 20:00 | PDOC DISCHARGE SUMMARY ---
Impression - Admit/DC Date/PCP Admission Date/Primary Care Provider: 12/20/18 17:37 JEN MAE MD Discharge Date: 12/31/18 - Discharge Diagnosis (1) Acute encephalopathy Is this a current diagnosis for this admission?: Yes (2) Dementia Is this a current diagnosis for this admission?: Yes (3) Iron deficiency anemia Is this a current diagnosis for this admission?: Yes (4) Hypothyroidism Is this a current diagnosis for this admission?: Yes (5) Chronic obstructive pulmonary disease (COPD) Is this a current diagnosis for this admission?: Yes (6) Telangiectasia of colon Is this a current diagnosis for this admission?: Yes (7) Type 2 diabetes mellitus Is this a current diagnosis for this admission?: Yes (8) Hypothyroidism Is this a current diagnosis for this admission?: Yes - Additional Information Referrals: JEN MAE MD [Primary Care Provider] - 01/02/19 10:15 am Prescriptions: Insulin Glargine,Hum.rec.anlog [Lantus (Pyxis) Insulin 100 Unit/1 ml 10 ml] 30 units SUBCUT QHS #2 unit Buspirone HCl [Buspar 10 mg Tablet] 10 mg PO Q12 #60 Duloxetine HCl [Cymbalta 30 mg Capsule.dr] 60 mg PO DAILY #30 Sitagliptin Phosphate [Januvia 50 mg Tablet] 100 mg PO DAILY #30 Pantoprazole Sodium [Protonix [address] Tablet] 40 mg PO DAILY #30 tablet. Levothyroxine Sodium [Synthroid] 250 mcg PO DAILY #30 Fluticasone/Umeclidin/Vilanter [Trelegy 100-62.5-25 Mcg Ellipta 14 Dose/Dpi] 1 inh IH DAILY #2 inhaler Home Medications: Acetaminophen [Tylenol 325 mg Tablet] 325 mg PO Q4HP PRN 12/20/18 Ipratropium/Albuterol Sulfate [Duoneb 3 ml Ampul] 1 inh IH Q6 PRN 12/21/18 Buspirone HCl [Buspar 10 mg Tablet] 10 mg PO Q12 #60 12/31/18 Duloxetine HCl [Cymbalta 30 mg Capsule.dr] 60 mg PO DAILY #30 12/31/18 Fluticasone/Umeclidin/Vilanter [Trelegy 100-62.5-25 Mcg Ellipta 14 Dose/Dpi] 1 inh IH DAILY #2 inhaler 12/31/18 Insulin Glargine,Hum.rec.anlog [Lantus (Pyxis) Insulin 100 Unit/1 ml 10 ml] 30 units SUBCUT QHS #2 unit 12/31/18 Levothyroxine Sodium [Synthroid] 250 mcg PO DAILY #30 12/31/18 Pantoprazole Sodium [Protonix [address] Tablet] 40 mg PO DAILY #30 tablet.dr 12/31/18 Sitagliptin Phosphate [Januvia 50 mg Tablet] 100 mg PO DAILY #30 12/31/18 History of Present Illiness History of Present Illness: GABINO ALEXANDER is a 73 year old female Hospital Course Hospital Course: Patient was admitted for the management of acute encephalopathy, dementia, iron deficiency anemia. She has background dementia she presented with extreme confusion with disorientation to time place and person. The etiology of the acute encephalopathy was not apparent at presentation, worsening dementia was suspected there was no acute infection that could be potential etiology of the acute confusion. The possibility of poor medication adherence was considered as a potential etiology of the acute confusion, TSH was elevated, she was started on intravenous levothyroxine. There was prolonged delay in medication reconciliation from home. Patient's daughter is in the detention, the grandson is under house arrest could not obtain any history from any family members. I recommended that patient should be placed I consulted with discharge planning but my understanding was that patient does not qualify for intermediate placement for financial and social reasons. She ultimately regained full function of her cerebral function, She was also found to have iron deficiency anemia, she was transfused with iron infusion consultation was requested from surgicalist for colonoscopy and EGD but this was declined because in their own judgment she has advanced dementia and it was not necessary to do the procedure. Physical Exam Vital Signs: Temp Pulse Resp BP Pulse Ox 98.0 F 52 L 16 123/42 L 98 12/31/18 11:39 12/31/18 14:00 12/31/18 11:39 12/31/18 11:39 12/31/18 11:39 Intake & Output 12/30/18 12/31/18 01/01/19 06:59 06:59 06:59 Intake Total 016 234 6908 Output Total 3950 600 Balance 904 -3115 540 Weight 71.8 kg 75.2 kg General appearance: PRESENT: no acute distress Eye exam: PRESENT: PERRLA Respiratory exam: PRESENT: clear to auscultation oh Cardiovascular exam: PRESENT: +S1, +S2 GI/Abdominal exam: PRESENT: soft Neurological exam: PRESENT: alert, CN II-XII grossly intact Results Laboratory Results: WBC 7.4 10^3/uL (4.0-10.5) 12/28/18 04:42 RBC 4.54 10^6/uL (3.72-5.28) 12/28/18 04:42 Hgb 10.9 g/dL (12.0-15.5) L 12/28/18 04:42 Hct 34.5 % (36.0-47.0) L 12/28/18 04:42 MCV 76 fl (80-97) L 12/28/18 04:42 MCH 23.9 pg (27.0-33.4) L 12/28/18 04:42 MCHC 31.5 g/dL (32.0-36.0) L 12/28/18 04:42 RDW 18.0 % (11.5-14.0) H 12/28/18 04:42 Plt Count 162 10^3/uL (150-450) 12/28/18 04:42 Lymph % (Auto) 35.0 % (13-45) 12/28/18 04:42 [place] % (Auto) 10.2 % (3-13) 12/28/18 04:42 Eos % (Auto) 2.1 % (0-6) 12/28/18 04:42 Baso % (Auto) 0.7 % (0-2) 12/28/18 04:42 Reticulocyte # 0.049 10^6/uL (0.028-0.122) 12/21/18 04:05 Absolute Neuts (auto) 3.9 10^3/uL (1.7-8.2) 12/28/18 04:42 Absolute Lymphs (auto) 2.6 10^3/uL (0.5-4.7) 12/28/18 04:42 Absolute Monos (auto) 0.8 10^3/uL (0.1-1.4) 12/28/18 04:42 Absolute Eos (auto) 0.2 10^3/uL (0.0-0.6) 12/28/18 04:42 Absolute Basos (auto) 0.1 10^3/uL (0.0-0.2) 12/28/18 04:42 Seg Neutrophils % 52.0 % (42-78) 12/28/18 04:42 Retic Count (auto) 1.37 % (0.66-2.85) 12/21/18 04:05 Sodium 134.3 mmol/L (137-145) L 12/28/18 04:42 Potassium 3.9 mmol/L (3.6-5.0) 12/28/18 04:42 Chloride 95 mmol/L (98-107) L 12/28/18 04:42 Carbon Dioxide 28 mmol/L (22-30) 12/28/18 04:42 Anion Gap 11 (5-19) 12/28/18 04:42 BUN 30 mg/dL (7-20) H 12/28/18 04:42 Creatinine 1.22 mg/dL (0.52-1.25) 12/28/18 04:42 Est GFR ( Amer) 52 (>60) L 12/28/18 04:42 Est GFR (MDRD) Non-Af 43 (>60) L 12/28/18 04:42 Glucose 106 mg/dL (75-110) 12/28/18 04:42 POC Glucose 141 mg/dL (70-110) H 12/31/18 15:36 Lactic Acid 0.6 mmol/L (0.7-2.1) L 12/20/18 18:20 Calcium 9.4 mg/dL (8.4-10.2) 12/28/18 04:42 Iron < 10.1 ug/dL (37-170) L 12/21/18 04:05 TIBC 375 ug/dL (250-450) 12/21/18 04:05 Iron Saturation UNABLE TO CALCULATE % (15% - 50%) 12/21/18 04:05 Ferritin 9.61 ng/mL (11.1-264.0) L 12/21/18 04:05 Total Bilirubin 0.4 mg/dL (0.2-1.3) 12/28/18 04:42 Direct Bilirubin 0.1 mg/dL (0.0-0.4) 12/28/18 04:42 Neonat Total Bilirubin Not Reportable 12/28/18 04:42 Neonat Direct Bilirubin Not Reportable 12/28/18 04:42 Neonat Indirect Bili Not Reportable 12/28/18 04:42 AST 22 U/L (14-36) 12/28/18 04:42 ALT 10 U/L (<35) 12/28/18 04:42 Alkaline Phosphatase 63 U/L (38-126) 12/28/18 04:42 CK-MB (CK-2) 2.99 ng/mL (<4.55) 12/20/18 13:20 Troponin I 0.025 ng/mL 12/20/18 13:20 NT-Pro-B Natriuret Pep 867 pg/mL (<125) H 12/20/18 13:20 Total Protein 7.7 g/dL (6.3-8.2) 12/28/18 04:42 Albumin 4.2 g/dL (3.5-5.0) 12/28/18 04:42 Vitamin B12 250.0 pg/mL (239-931) 12/21/18 04:05 Folate 8.13 ng/mL (>2.76) 12/21/18 04:05 TSH 18.30 uIU/mL (0.47-4.68) H 12/24/18 06:06 Free T4 1.14 ng/dL (0.78-2.19) 12/24/18 06:06 Urine Color STRAW 12/20/18 13:45 Urine Appearance CLEAR 12/20/18 13:45 Urine pH 7.0 (5.0-9.0) 12/20/18 13:45 Ur Specific [place] 1.009 12/20/18 13:45 Urine Protein 100 mg/dL (NEGATIVE) H 12/20/18 13:45 Urine Glucose (UA) NEGATIVE mg/dL (NEGATIVE) 12/20/18 13:45 Urine Ketones NEGATIVE mg/dL (NEGATIVE) 12/20/18 13:45 Urine Blood SMALL (NEGATIVE) H 12/20/18 13:45 Urine Nitrite (Reflex) NEGATIVE (NEGATIVE) 12/20/18 13:45 Urine Bilirubin NEGATIVE (NEGATIVE) 12/20/18 13:45 Urine Urobilinogen NEGATIVE mg/dL (<2.0) 12/20/18 13:45 Leukocyte Esterase Rfl NEGATIVE (NEGATIVE) 12/20/18 13:45 Urine RBC (Auto) 0 /HPF 12/20/18 13:45 Urine WBC (Reflex) 2 /HPF 12/20/18 13:45 Squamous Epi Cells Auto 1 /HPF 12/20/18 13:45 Urine Ascorbic Acid NEGATIVE (NEGATIVE) 12/20/18 13:45 Urine Opiates Screen NEGATIVE 12/20/18 13:45 Urine Methadone Screen NEGATIVE 12/20/18 13:45 Ur Barbiturates Screen NEGATIVE 12/20/18 13:45 Ur Phencyclidine Scrn NEGATIVE 12/20/18 13:45 Ur Amphetamines Screen NEGATIVE 12/20/18 13:45 U Benzodiazepines Scrn NEGATIVE 12/20/18 13:45 Urine Cocaine Screen NEGATIVE 12/20/18 13:45 U Marijuana (THC) Screen NEGATIVE 12/20/18 13:45 12/20/18 13:20 CK-MB (CK-2) 2.99 Troponin I 0.025 NT-Pro-B Natriuret Pep 867 H Impressions: Chest X-Ray 12/20/18 14:49 IMPRESSION: Findings are consistent with vascular congestion. Similar findings were noted on prior exam. Head CT 12/20/18 14:49 IMPRESSION: MILD CHRONIC CHANGES OF ATROPHY AND MICROVASCULAR ISCHEMIA. NO ACUTE PROCESS. EVIDENCE OF ACUTE STROKE: NO. Stroke Is this a Stroke Patient?: No Acute Heart Failure - Is this a Heart Failure Patient?: No
[2019-01-01] MEDS: LEVOTHYROXINE SODIUM 0.1 MG TABLET PO SCH (05:37)
[2019-01-01] MEDS: INSULIN LISPRO 100 UNIT/ML 3 ML VIAL SUBCUT SCH ×3 (08:32→16:07)
[2019-01-01] MEDS: ENOXAPARIN SODIUM INJ 40 MG/0.4 ML DISP.SYRIN SUBCUT SCH (09:07)
[2019-01-01] MEDS: DOCUSATE SODIUM 100 MG/10 ML UDC PO SCH ×2 (09:09→17:06)
[2019-01-01] MEDS: PANTOPRAZOLE SODIUM 40 MG TABLET.DR PO SCH (09:10)
[2019-01-01 20:38] VITALS: BP 127/68
[2019-01-01] MEDS: ACETAMINOPHEN 325 MG TABLET PO PRN (20:47)
== END 2019-01-01 21:10 | disposition home or self-care (01) | DRG 72 ==
LOC: ER 12:44 → EH 17:37 → 3N 21:19
PROVIDERS: ADMIT Internal Medicine; ATTEND Internal Medicine
PROC: 3E0234Z Introduction of Serum, Toxoid and Vaccine into Muscle, Percutaneous Approach (ICD-10-PCS; principal; 2019-01-01)
DX: G93.41 Metabolic encephalopathy (principal); E03.9 Hypothyroidism, unspecified; G30.8 Other Alzheimer's disease; F02.80 Dementia in other diseases classified elsewhere, unspecified severity, without behavioral disturbance, psychotic disturbance, mood disturbance, and anxiety; D50.0 Iron deficiency anemia secondary to blood loss (chronic); I11.0 Hypertensive heart disease with heart failure; J44.9 Chronic obstructive pulmonary disease, unspecified; I50.9 Heart failure, unspecified; E11.42 Type 2 diabetes mellitus with diabetic polyneuropathy; I73.9 Peripheral vascular disease, unspecified; K21.9 Gastro-esophageal reflux disease without esophagitis; M79.89 Other specified soft tissue disorders; I78.1 Nevus, non-neoplastic; R41.82 Altered mental status, unspecified; Z99.81 Dependence on supplemental oxygen; Z88.1 Allergy status to other antibiotic agents; Z91.011 Allergy to milk products; Z88.5 Allergy status to narcotic agent; Z88.8 Allergy status to other drugs, medicaments and biological substances; Z91.018 Allergy to other foods; Z79.84 Long term (current) use of oral hypoglycemic drugs; Z79.4 Long term (current) use of insulin; Z79.51 Long term (current) use of inhaled steroids; Z79.899 Other long term (current) drug therapy; Z23 Encounter for immunization; Z91.14 Patient's other noncompliance with medication regimen
CPT/HCPCS: 36415; 70450; 71046; 80048; 80053; 80307; 81001; 82553; 82607; 82728; 82746; 82962; 83540; 83550; 83605; 83880; 84439; 84443; 84484; 85025; 85045; 87040; 87086; 90686; 93005; 93010; 93970; 99284; J0692; J0696; J1650; J1756; J3420; J3490

== ENCOUNTER 2019-01-25 20:50 | Emergency (ER) | payer MEDICARE ==
--- NOTE | 2019-01-25 21:11 | ER Document Report ---
ED Medical Screen (RME) - General Stated Complaint: CONFUSION,DEMENTIA Time Seen by Provider: 01/25/19 21:05 Primary Care Provider: JEN MAE MD [Primary Care Provider] - Follow up as needed Mode of Arrival: Wheelchair Information source: Patient, Relative Notes: This 73-year-old female presents to the emergency department accompanied by her grandsons with reports that she has had increased confusion does not know what date time it is. Grandson reports that she goes through this. Has history of dementia. Patient sitting calmly not answering any questions. No complaints of fever vomiting diarrhea. Patient lives with grandsons. I have greeted and performed a rapid initial assessment of this patient. A comprehensive ED assessment and evaluation of the patient, analysis of test results and completion of the medical decision making process will be conducted by additional ED providers. Dictation of this chart was performed using voice recognition software; therefore, there may be some unintended grammatical errors. TRAVEL OUTSIDE OF THE [place] IN LAST 30 DAYS: No COUNTRY TRAVELED TO/FROM: [facility] - Related Data Allergies/Adverse Reactions: melon Allergy (Unknown, Verified 07/02/18 19:17) allopurinol [From Zyloprim] Allergy (Verified 03/06/18 03:47) amitriptyline HCl [From Elavil] Allergy (Verified 03/06/18 03:47) belladonna alkaloids [From Bellergal-S] Allergy (Verified 03/06/18 03:47) cefuroxime axetil [From Ceftin] Allergy (Verified 03/06/18 03:47) celecoxib [From Celebrex] Allergy (Verified 03/06/18 03:47) cimetidine [From Tagamet] Allergy (Verified 03/06/18 03:47) codeine [Codeine] Allergy (Verified 03/06/18 03:47) doxepin HCl [From [place]an] Allergy (Verified 03/06/18 03:47) ergotamine tartrate [From Bellergal-S] Allergy (Verified 03/06/18 03:47) fluoxetine HCl [From Prozac] Allergy (Verified 03/06/18 03:47) hydroxyzine HCl [From Atarax] Allergy (Verified 03/06/18 03:47) indigotindisulfonic acid [From [place]igo [place]] Allergy (Verified 03/06/18 03:47) malathion Allergy (Verified 03/06/18 03:47) mefenamic acid Allergy (Verified 03/06/18 03:47) Milk Containing Products Allergy (Verified 03/06/18 03:47) naproxen sodium [From Anaprox] Allergy (Verified 03/06/18 03:47) nefazodone HCl [From Serzone] Allergy (Verified 03/06/18 03:47) phenylephrine tannate [From [place] CT] Allergy (Verified 03/06/18 03:47) pyrilamine tannate [From Deconsal CT] Allergy (Verified 03/06/18 03:47) tolterodine tartrate [From Detrol] Allergy (Verified 03/06/18 03:47) trazodone HCl [From Desyrel] Allergy (Verified 03/06/18 03:47) morphine Adverse Reaction (Verified 04/11/18 21:58) renuzil Allergy (Uncoded 01/24/18 17:48) surgical steel Allergy (Uncoded 01/24/18 17:48) Past Medical History - Past Medical History Cardiac Medical History: Reports: Hx Congestive Heart Failure, Hx Hypertension, Hx Peripheral Vascular Disease Pulmonary Medical History: Reports: Hx COPD - not on home o2, Hx Pneumonia Neurological Medical History: Denies: Hx Seizures Endocrine Medical History: Reports: Hx Diabetes Mellitus Type 2, Hx Hypothyroidism - w/med noncompliance and hx of myxedema coma Renal/ Medical History: Denies: Hx Hemodialysis, Hx Peritoneal Dialysis GI Medical History: Reports: Hx Gastroesophageal Reflux Disease. Denies: Hx Crohn's Disease, Hx Ulcerative Colitis Musculoskeltal Medical History: Reports Hx Arthritis, Denies Hx Gout Skin Medical History: Denies Hx Eczema, Denies Hx Psoriasis Psychiatric Medical History: Reports: Hx Depression Denies: Hx Bipolar Disorder, Hx Personality Disorder, Hx Schizoaffective Disorder Traumatic Medical History: Denies: Hx Traumatic Brain Injury Past Surgical History: Reports: Hx Cholecystectomy, Hx Orthopedic Surgery - L Wrist. Denies: Hx Hysterectomy - Immunizations Immunizations up to date: No Hx Diphtheria, Pertussis, Tetanus Vaccination: No Physical Exam - Vital signs Vitals: Temp Pulse Resp BP Pulse Ox 97.9 F 52 L 20 153/53 H 97 01/25/19 21:05 01/25/19 21:05 01/25/19 21:05 01/25/19 21:05 01/25/19 21:05 Course - Vital Signs Vital signs: Temp Pulse Resp BP Pulse Ox 97.9 F 52 L 20 153/53 H 97 01/25/19 21:05 01/25/19 21:05 01/25/19 21:05 01/25/19 21:05 01/25/19 21:05 Doctor's Discharge - Discharge Referrals: JEN MAE MD [Primary Care Provider] - Follow up as needed
[2019-01-25 21:59] LABS: ABSOLUTE BASOPHILS # (AUTO) 0.1 10^3/uL (0.0-0.2); ABSOLUTE EOSINOPHILS # (AUTO) 0.1 10^3/uL (0.0-0.6); ABSOLUTE MONOCYTES (AUTO) 0.8 10^3/uL (0.1-1.4); ABSOLUTE NEUT (AUTO) 6.2 10^3/uL (1.7-8.2); BASOPHILS % (AUTO) 0.6 % (0-2); EOSINOPHILS % (AUTO) 0.8 % (0-6); HEMATOCRIT 35.1 % (36.0-47.0); HEMOGLOBIN 10.9 g/dL (12.0-15.5); LYMPHOCYTES % (AUTO) 22.2 % (13-45); MEAN CORPUSCULAR HEMOGLOBIN 24.5 pg (27.0-33.4); MEAN CORPUSCULAR HGB CONC 31.1 g/dL (32.0-36.0); MEAN CORPUSCULAR VOLUME 79 fl (80-97); MONOCYTES % (AUTO) 8.7 % (3-13); PLATELET COUNT 216 10^3/uL (150-450); RED BLOOD COUNT 4.46 10^6/uL (3.72-5.28); RED CELL DISTRIBUTION WIDTH 19.9 % (11.5-14.0); SEGMENTED NEUTROPHILS % (AUTO) 67.7 % (42-78); TOTAL CELLS COUNTED % (AUTO) 100 %; WHITE BLOOD COUNT 9.1 10^3/uL (4.0-10.5)
[2019-01-25 22:22] LABS: ALBUMIN 4.3 g/dL (3.5-5.0); ALKALINE PHOSPHATASE 70 U/L (38-126); ANION GAP 13 (5-19); ASPARTATE AMINO TRANSFERASE 20 U/L (14-36); BILIRUBIN,DIRECT 0.1 mg/dL (0.0-0.4); BILIRUBIN,TOTAL 0.5 mg/dL (0.2-1.3); BLOOD UREA NITROGEN 12 mg/dL (7-20); CALCIUM 9.6 mg/dL (8.4-10.2); CARBON DIOXIDE 33 mmol/L (22-30); CHLORIDE 95 mmol/L (98-107); GLUCOSE 130 mg/dL (75-110); POTASSIUM 3.7 mmol/L (3.6-5.0); TOTAL PROTEIN 7.8 g/dL (6.3-8.2)
--- NOTE | 2019-01-25 22:54 | RADIOLOGY REPORT (SQ) ---
EXAM DESCRIPTION: X-RAY CHEST- One View CLINICAL HISTORY: Wheezing and confusion COMPARISON: December 20, 2018 TECHNIQUE: Single view of the chest. FINDINGS: There is redemonstration of diffusely increased interstitial markings. Prominence of the pulmonary vasculature with borderline enlargement of the cardiac silhouette is again noted. There are no discrete pneumothoraces or pleural effusions. Osseous structures are stable in appearance. Surgical clips in the right upper abdominal quadrant are suggestive of prior cholecystectomy. IMPRESSION: Diffusely increased interstitial markings with prominence of pulmonary vasculature and borderline enlargement of the cardiac silhouette is nonspecific but may represent underlying pulmonary vascular congestion. Clinical correlation is advised.
[2019-01-26 02:59] LABS: APPEARANCE,URINE SLIGHTLY-CLOUDY; BILIRUBIN,URINE NEGATIVE (NEGATIVE); COLOR,URINE YELLOW; GLUCOSE, URINE NEGATIVE (NEGATIVE); KETONES,URINE NEGATIVE (NEGATIVE); LEUKOCYTE ESTERASE,URINE TRACE (NEGATIVE); NITRITE,URINE NEGATIVE (NEGATIVE); PROTEIN,URINE >=500 mg/dL (NEGATIVE); URINE SPECIFIC GRAVITY 1.014; UROBILINOGEN,URINE NEGATIVE mg/dL (<2.0)
[2019-01-26] MEDS ORDERED: ACETAMINOPHEN 325 MG TABLET PO ONE (03:06)
--- NOTE | 2019-01-26 03:08 | ER Document Report ---
ED General - General Chief Complaint: Altered Mental Status Stated Complaint: CONFUSION,DEMENTIA Time Seen by Provider: 01/25/19 21:05 Primary Care Provider: JEN MAE MD [Primary Care Provider] - Follow up as needed Mode of Arrival: Wheelchair Notes: 73-year-old female with history of dementia presents with increased confusion. Per grandson this is been ongoing intermittently for years. Patient has been admitted multiple times for same. Patient has no complaints except for a rthritic pain that she is requesting Tylenol for. Patient denies any chest pain, dyspnea, nausea/vomiting/diarrhea, fever/chills, abdominal pain. TRAVEL OUTSIDE OF THE [place] IN LAST 30 DAYS: No COUNTRY TRAVELED TO/FROM: [facility] - Related Data Allergies/Adverse Reactions: melon Allergy (Unknown, Verified 07/02/18 19:17) allopurinol [From Zyloprim] Allergy (Verified 03/06/18 03:47) amitriptyline HCl [From Elavil] Allergy (Verified 03/06/18 03:47) belladonna alkaloids [From Bellergal-S] Allergy (Verified 03/06/18 03:47) cefuroxime axetil [From Ceftin] Allergy (Verified 03/06/18 03:47) celecoxib [From Celebrex] Allergy (Verified 03/06/18 03:47) cimetidine [From Tagamet] Allergy (Verified 03/06/18 03:47) codeine [Codeine] Allergy (Verified 03/06/18 03:47) doxepin HCl [From Sinequan] Allergy (Verified 03/06/18 03:47) ergotamine tartrate [From Bellergal-S] Allergy (Verified 03/06/18 03:47) fluoxetine HCl [From Prozac] Allergy (Verified 03/06/18 03:47) hydroxyzine HCl [From Atarax] Allergy (Verified 03/06/18 03:47) indigotindisulfonic acid [From Indigo [place]] Allergy (Verified 03/06/18 03:47) malathion Allergy (Verified 03/06/18 03:47) mefenamic acid Allergy (Verified 03/06/18 03:47) Milk Containing Products Allergy (Verified 03/06/18 03:47) naproxen sodium [From Anaprox] Allergy (Verified 03/06/18 03:47) nefazodone HCl [From Serzone] Allergy (Verified 03/06/18 03:47) phenylephrine tannate [From Deconsal CT] Allergy (Verified 03/06/18 03:47) pyrilamine tannate [From Deconsal CT] Allergy (Verified 03/06/18 03:47) tolterodine tartrate [From Detrol] Allergy (Verified 03/06/18 03:47) trazodone HCl [From Desyrel] Allergy (Verified 03/06/18 03:47) morphine Adverse Reaction (Verified 04/11/18 21:58) renuzil Allergy (Uncoded 01/24/18 17:48) surgical steel Allergy (Uncoded 01/24/18 17:48) Home Medications: grandson doesn't know, "its all in the system" Past Medical History - General Information source: Patient, Relative - Social History Smoking Status: Former Smoker Family History: None, CAD, DM, Hypertension Patient has suicidal ideation: No Patient has homicidal ideation: No - Past Medical History Cardiac Medical History: Reports: Hx Congestive Heart Failure, Hx Hypertension, Hx Peripheral Vascular Disease Pulmonary Medical History: Reports: Hx COPD - not on home o2, Hx Pneumonia Neurological Medical History: Denies: Hx Seizures Endocrine Medical History: Reports: Hx Diabetes Mellitus Type 2, Hx Hypothyroi dism - w/med noncompliance and hx of myxedema coma Renal/ Medical History: Denies: Hx Hemodialysis, Hx Peritoneal Dialysis GI Medical History: Reports: Hx Gastroesophageal Reflux Disease. Denies: Hx Crohn's Disease, Hx Ulcerative Colitis Musculoskeletal Medical History: Reports Hx Arthritis, Denies Hx Gout Skin Medical History: Denies Hx Eczema, Denies Hx Psoriasis Psychiatric Medical History: Reports: Hx Depression Denies: Hx Bipolar Disorder, Hx Personality Disorder, Hx Schizoaffective Disorder Traumatic Medical History: Denies: Hx Traumatic Brain Injury Past Surgical History: Reports: Hx Cholecystectomy, Hx Orthopedic Surgery - L Wrist. Denies: Hx Hysterectomy - Immunizations Immunizations up to date: No Hx Diphtheria, Pertussis, Tetanus Vaccination: No Review of Systems - Review of Systems Notes: Constitutional: Negative for fever. HENT: Negative for sore throat. Eyes: Negative for visual changes. Cardiovascular: Negative for chest pain. Respiratory: Negative for shortness of breath. Gastrointestinal: Negative for abdominal pain, vomiting or diarrhea. Genitourinary: Negative for dysuria. Musculoskeletal: Negative for back pain. Skin: Negative for rash. Neurological: Positive for confusion. Negative for headaches, weakness or numbness. 10 point ROS negative except as marked above and in HPI. Physical Exam - Vital signs Vitals: Temp Pulse Resp BP Pulse Ox 97.9 F 52 L 20 153/53 H 87 L 01/25/19 21:01 01/25/19 21:01 01/25/19 21:01 01/25/19 21:01 01/25/19 21:01 - Notes Notes: GENERAL: Well-appearing, well-nourished and in no acute distress. HEAD: Atraumatic, normocephalic. EYES: Pupils equal round and reactive to light, extraocular movements intact, sclera anicteric, conjunctiva are normal. NECK: Normal range of motion, supple without lymphadenopathy or JVD. LUNGS: Breath sounds clear to auscultation bilaterally and equal. No wheezes rales or rhonchi. HEART: Regular rate and rhythm without murmurs, rubs or gallops. ABDOMEN: Soft, nontender. No guarding, no rebound. No masses appreciated. EXTREMITIES: Normal range of motion, no pitting or edema. No clubbing or cyanosis. NEUROLOGICAL: Patient is alert and oriented to self. Patient is not alert to time, place. Cranial nerves II through XII grossly intact. Normal speech, normal gait. PSYCH: Normal mood, normal affect. SKIN: Warm, Dry, normal turgor, no rashes or lesions noted. Course - Re-evaluation Re-evalutation: 01/26/19 73-year-old female presents with confusion that is intermittent for years. Patient has no complaints except for arthritic pain. Patient lives with her grandson who is at bedside who states "she cannot go home like this." Patient is afebrile. Nontoxic, well-appearing. Lab work is at baseline. Urine does not indicate a UTI. 01/26/19 03:16 Review of medical records indicates multiple admissions for same which are attributed to possible worsening dementia. Pt does not meet admission criteria at this time. Pt may need placement for assisted living. Consult for health care social worker placed. - Vital Signs Vital signs: Temp Pulse Resp BP Pulse Ox 98.4 F 114 H 20 157/58 H 83 L 12/14/19 23:52 01/25/19 23:52 01/25/19 23:52 01/25/19 23:52 01/25/19 23:52 - Laboratory Result Diagrams: 01/25/19 21:37 01/25/19 21:37 Laboratory results interpreted by me: 01/25/19 01/25/19 01/26/19 21:37 21:37 01:30 Hgb 10.9 L Hct 35.1 L MCV 79 L MCH 24.5 L MCHC 31.1 L RDW 19.9 H Chloride 95 L Carbon Dioxide 33 H Est GFR ( Amer) 58 L Est GFR (MDRD) Non-Af 48 L Glucose 130 H Urine Protein >=500 H Ur Leukocyte Esterase TRACE H Discharge - Discharge Clinical Impression: Dementia Qualifiers: Dementia type: unspecified type Dementia behavioral disturbance: without behavioral disturbance Qualified Code(s): F03.90 - Unspecified dementia without behavioral disturbance Condition: Stable Disposition: OTHER Instructions: Dementia ([facility]) Additional Instructions: Your lab work today was reassuring. Please follow-up with your primary care doctor in 3 to 5 days. Return to ER for any worsening symptoms, including fever, abdominal pain, chest pain, shortness of breath, nausea/vomiting/diarrhea/constipation, or any other symptoms that are concerning to you. Referrals: JEN MAE MD [Primary Care Provider] - Follow up in 3-5 days
[2019-01-26] MEDS ORDERED: LEVOTHYROXINE SODIUM 0.1 MG TABLET PO ONE (13:28)
[2019-01-26] MEDS ORDERED: LEVOTHYROXINE SODIUM 0.05 MG TABLET PO ONE (13:28)
[2019-01-26 13:31] LABS: FREE T3 2.78 pg/mL (2.77-5.27); FREE T4 (FREE THYROXINE) 1.66 ng/dL (0.78-2.19)
[2019-01-26 13:45] LABS: THYROID STIMULATING HORMONE 9.2 uIU/mL (0.47-4.68)
[2019-01-26 18:41] VITALS: BP 160/64
== END 2019-01-26 18:46 | disposition other institution (70) ==
LOC: ER 20:50
DX: F03.90 Unspecified dementia, unspecified severity, without behavioral disturbance, psychotic disturbance, mood disturbance, and anxiety (principal); M19.90 Unspecified osteoarthritis, unspecified site; E11.51 Type 2 diabetes mellitus with diabetic peripheral angiopathy without gangrene; I10 Essential (primary) hypertension; J44.9 Chronic obstructive pulmonary disease, unspecified; Z87.891 Personal history of nicotine dependence; Z91.018 Allergy to other foods; Z88.8 Allergy status to other drugs, medicaments and biological substances; Z88.1 Allergy status to other antibiotic agents; Z88.6 Allergy status to analgesic agent; Z88.5 Allergy status to narcotic agent; Z91.011 Allergy to milk products
CPT/HCPCS: 99285; 36415; 84439; 82962; 84443; 85025; 80053; 81001; 84481; 71046; A9270 ×3

== ENCOUNTER 2019-07-13 01:32 | Inpatient (IN) | payer MEDICARE ==
--- NOTE | 2019-07-13 02:41 | ER Document Report ---
Entered by LEI WINTER SCRIBE 07/13/19 0158 Acting as scribe for:BRONSON BETH IV, MD ED General - General Chief Complaint: General Weakness Stated Complaint: LEANING TO LEFT SIDE Time Seen by Provider: 07/13/19 01:55 Primary Care Provider: JEN MAE MD [Primary Care Provider] - Follow up as needed Mode of Arrival: Medic Information source: Emergency Med Personnel Notes: This 74 year old female patient with a history of dementia and COPD (on home O2) brought in by EMS from home presents to the ED today with complaints of sudden onset leaning to the left side and weakness that started x8 hours prior to arrival. Per patient's family, patient has also been having increased swelling to her lower extremities for the past x1 week. Patient reports worsening shortness of breath and cough in the last few days per ED nurse. According to EMS, patient had an O2 saturation of 82% on 4L home O2 [place] upon their arrival, which dropped in the 70s before they left the patient's residence. EMS reports that they placed a non-rebreather at 10L and the patient's O2 saturation improved to 96%. TRAVEL OUTSIDE OF THE [place] IN LAST 30 DAYS: No - Related Data Allergies/Adverse Reactions: melon Allergy (Unknown, Verified 07/02/18 19:17) allopurinol [From Zyloprim] Allergy (Verified 03/06/18 03:47) amitriptyline HCl [From Elavil] Allergy (Verified 03/06/18 03:47) belladonna alkaloids [From Bellergal-S] Allergy (Verified 03/06/18 03:47) cefuroxime axetil [From Ceftin] Allergy (Verified 03/06/18 03:47) celecoxib [From Celebrex] Allergy (Verified 03/06/18 03:47) cimetidine [From Tagamet] Allergy (Verified 03/06/18 03:47) codeine [Codeine] Allergy (Verified 03/06/18 03:47) doxepin HCl [From Sinequan] Allergy (Verified 03/06/18 03:47) ergotamine tartrate [From Bellergal-S] Allergy (Verified 03/06/18 03:47) fluoxetine HCl [From Prozac] Allergy (Verified 03/06/18 03:47) hydroxyzine HCl [From Atarax] Allergy (Verified 03/06/18 03:47) indigotindisulfonic acid [From Indigo [place]] Allergy (Verified 03/06/18 03:47) malathion Allergy (Verified 03/06/18 03:47) mefenamic acid Allergy (Verified 03/06/18 03:47) Milk Containing Products Allergy (Verified 03/06/18 03:47) naproxen sodium [From Anaprox] Allergy (Verified 03/06/18 03:47) nefazodone HCl [From Serzone] Allergy (Verified 03/06/18 03:47) phenylephrine tannate [From Deconsal CT] Allergy (Verified 03/06/18 03:47) pyrilamine tannate [From Deconsal CT] Allergy (Verified 03/06/18 03:47) tolterodine tartrate [From Detrol] Allergy (Verified 03/06/18 03:47) trazodone HCl [From Desyrel] Allergy (Verified 03/06/18 03:47) morphine Adverse Reaction (Verified 04/11/18 21:58) renuzil Allergy (Uncoded 01/24/18 17:48) surgical steel Allergy (Uncoded 01/24/18 17:48) Past Medical History - General Information source: [facility] Records - Social History Smoking Status: Unknown if Ever Smoked Cigarette use (# per day): No Chew tobacco use (# tins/day): No Smoking Education Provided: No Frequency of alcohol use: None Drug Abuse: None Lives with: Family Family History: Reviewed & Not Pertinent, CAD, DM, Hypertension Patient has suicidal ideation: No Patient has homicidal ideation: No - Past Medical History Cardiac Medical History: Reports: Hx Congestive Heart Failure, Hx Hypertension, Hx Peripheral Vascular Disease Pulmonary Medical History: Reports: Hx COPD - on home 4L O2 [place], Hx Pneumonia, Hx Respiratory Failure Endocrine Medical History: Reports: Hx Diabetes Mellitus Type 2, Hx Hypothyroidism - w/med noncompliance and hx of myxedema coma GI Medical History: Reports: Hx Gastroesophageal Reflux Disease Musculoskeletal Medical History: Reports Hx Arthritis Psychiatric Medical History: Reports: Hx Depression Past Surgical History: Reports: Hx Cholecystectomy, Hx Orthopedic Surgery - L Wrist - Immunizations Immunizations up to date: No Hx Diphtheria, Pertussis, Tetanus Vaccination: No Review of Systems - Review of Systems Constitutional: See HPI, Weakness EENT: No symptoms reported Cardiovascular: No symptoms reported Respiratory: See HPI, Cough, Short of breath Gastrointestinal: No symptoms reported Genitourinary: No symptoms reported Female Genitourinary: No symptoms reported Musculoskeletal: See HPI, Leg swelling Skin: No symptoms reported Hematologic/Lymphatic: No symptoms reported Neurological/Psychological: No symptoms reported -: Yes All other systems reviewed and negative Physical Exam - Vital signs Vitals: Temp 98.1 F 07/13/19 01:32 - General General appearance: Alert, Other - Leaning to the left side - HEENT Head: Normocephalic, Atraumatic Eyes: Normal Pupils: PERRL - Respiratory Respiratory status: No respiratory distress Chest status: Nontender Breath sounds: Normal Chest palpation: Normal - Cardiovascular Rhythm: Regular Heart sounds: Normal auscultation Murmur: No Friction rub: No Gallop: None auscultated - Abdominal Inspection: Normal Distension: No distension Bowel sounds: Normal Tenderness: Nontender - Abdomen soft Organomegaly: No organomegaly - Back Back: Normal, Nontender - Extremities General upper extremity: Normal inspection General lower extremity: Edema - 2+ pitting edema to lower extremites bilaterally - Neurological Neuro grossly intact: Yes Speech: Normal Cranial nerves: No: Facial palsy 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 No: Pronator drift - Psychological Associated symptoms: Normal affect, Normal mood - Skin Skin Temperature: Warm Skin Moisture: Dry Skin Color: Normal Course - Re-evaluation Re-evalutation: 07/13/19 04:02 Results of ED MSE discussed with patient. All questions were answered. - Vital Signs Vital signs: Temp Pulse Resp BP Pulse Ox 98.1 F 61 17 140/49 H 98 07/13/19 01:51 07/13/19 02:08 07/13/19 02:08 07/13/19 02:08 07/13/19 02:25 - Laboratory Result Diagrams: 07/13/19 01:45 07/13/19 01:45 Laboratory results interpreted by me: 07/13/19 07/13/19 07/13/19 01:45 01:45 01:45 WBC 10.8 H Hgb 10.1 L Hct 32.6 L MCHC 31.0 L RDW 17.7 H Lymph % (Auto) 11.7 L Absolute Neuts (auto) 8.5 H Seg Neutrophils % 78.6 H VBG pH VBG pCO2 Sodium 134.7 L BUN 32 H Creatinine 1.28 H Est GFR ( Amer) 49 L Est GFR (MDRD) Non-Af 41 L Glucose 210 H POC Glucose Calcium 7.9 L NT-Pro-B Natriuret Pep 7630 H Albumin 3.4 L 07/13/19 07/13/19 03:06 03:30 WBC Hgb Hct MCHC RDW Lymph % (Auto) Absolute Neuts (auto) Seg Neutrophils % VBG pH 7.23 L VBG pCO2 76.8 H* Sodium BUN Creatinine Est GFR ( Amer) Est GFR (MDRD) Non-Af Glucose POC Glucose 183 H Calcium NT-Pro-B Natriuret Pep Albumin - Diagnostic Test Radiology reviewed: Reports reviewed - EKG Interpretation by Me Additional EKG results interpreted by me: 07/13/19 04:02 EKG obtained on 07/13/2019 at 0320 hrs. was interpreted by this MD. Findings: sinus rhythm, right axis deviation is present, rate 57, P waves preceding QRS complexes, QRS complex appears narrow, there are no obvious patterns of ST segment elevation or depression present to suggest acute myocardial ischemia or infarction. Impression: Sinus bradycardia with right axis deviation and non- specific ST segments. - Consults Dr. Mae Time consulted: 03:20 - Dr. Mae agreed to admit patient for CHF exacerbation to [facility] Reason for consultation: 07/13/19 04:04 CHF exacerbation Discharge - Discharge Clinical Impression: Congestive heart failure Qualifiers: Heart failure type: unspecified Heart failure chronicity: unspecified Qualified Code(s): I50.9 - Heart failure, unspecified Condition: Good Disposition: ADMITTED INPATIENT Admitting Provider: Nain Unit Admitted: [facility] Referrals: JEN MAE MD [Primary Care Provider] - Follow up as needed I personally performed the services described in the documentation, reviewed and edited the documentation which was dictated to the scribe in my presence, and it accurately records my words and actions.
[2019-07-13 02:44] LABS: INTERNATIONAL RATION (INR) 1.14; PROTHROMBIN TIME 14.7 SEC (11.4-15.4)
[2019-07-13 02:47] LABS: ALBUMIN 3.4 g/dL (3.5-5.0); ALKALINE PHOSPHATASE 86 U/L (38-126); ANION GAP 7 (5-19); ASPARTATE AMINO TRANSFERASE 32 U/L (14-36); BILIRUBIN,TOTAL 0.3 mg/dL (0.2-1.3); BLOOD UREA NITROGEN 32 mg/dL (7-20); CALCIUM 7.9 mg/dL (8.4-10.2); CARBON DIOXIDE 30 mmol/L (22-30); CHLORIDE 98 mmol/L (98-107); GLUCOSE 210 mg/dL (75-110); POTASSIUM 4.7 mmol/L (3.6-5.0); TOTAL PROTEIN 6.8 g/dL (6.3-8.2)
[2019-07-13 03:12] LABS: ABSOLUTE BASOPHILS # (AUTO) 0.1 10^3/uL (0.0-0.2); ABSOLUTE EOSINOPHILS # (AUTO) 0.1 10^3/uL (0.0-0.6); ABSOLUTE LYMPHOCYTES (AUTO) 1.3 10^3/uL (0.5-4.7); ABSOLUTE MONOCYTES (AUTO) 0.9 10^3/uL (0.1-1.4); ABSOLUTE NEUT (AUTO) 8.5 10^3/uL (1.7-8.2); BASOPHILS % (AUTO) 0.8 % (0-2); HEMATOCRIT 32.6 % (36.0-47.0); HEMOGLOBIN 10.1 g/dL (12.0-15.5); LYMPHOCYTES % (AUTO) 11.7 % (13-45); MEAN CORPUSCULAR VOLUME 87 fl (80-97); MONOCYTES % (AUTO) 7.9 % (3-13); PLATELET COUNT 197 10^3/uL (150-450); RED BLOOD COUNT 3.75 10^6/uL (3.72-5.28); RED CELL DISTRIBUTION WIDTH 17.7 % (11.5-14.0); SEGMENTED NEUTROPHILS % (AUTO) 78.6 % (42-78); TOTAL CELLS COUNTED % (AUTO) 100 %; WHITE BLOOD COUNT 10.8 10^3/uL (4.0-10.5)
--- NOTE | 2019-07-13 03:15 | RADIOLOGY REPORT (SQ) ---
CLINICAL HISTORY: extremity weakness, leaning to left COMPARISON: None. TECHNIQUE: CT HEAD WITHOUT IV CONTRAST on 07/13/2019 2:23 AM CDT This exam was performed according to our departmental dose-optimization program, which includes automated exposure control, adjustment of the mA and/or kV according to patient size and/or use of iterative reconstruction technique. FINDINGS: There is no acute hemorrhage, mass effect or midline shift. Morales-white differentiation is preserved. There is no hydrocephalus. There is no significant volume loss for age. There are mild patchy hypodensities within the periventricular and subcortical white matter, consistent with microangiopathic ischemic changes. The calvarium is intact. Orbits and globes are unremarkable. The paranasal sinuses are clear. Mastoid air cells are clear. IMPRESSION: No acute intracranial findings.
--- NOTE | 2019-07-13 03:40 | RADIOLOGY REPORT (SQ) ---
CLINICAL HISTORY: dyspnea COMPARISON: 11/04/2018. TECHNIQUE: XR CHEST 1 VIEW 07/13/2019 2:24 AM CDT FINDINGS: The heart is enlarged. There is moderate pulmonary edema. There are small pleural effusions. There is no pneumothorax. There are no acute osseous findings. IMPRESSION: Slightly worsening aeration of the lungs.
[2019-07-13 03:45] LABS: VENOUS BLOOD HCO3 31.2 mmol/L (20-32); VENOUS BLOOD PH 7.23 (7.30-7.42)
[2019-07-13 03:48] LABS: VENOUS BLOOD PCO2 76.8 mmHg (35-63)
[2019-07-13] MEDS ORDERED: FUROSEMIDE INJ/PF 20 MG/2 ML SDV IV ONE (04:01)
[2019-07-13 04:20] LABS: APPEARANCE,URINE CLOUDY; BILIRUBIN,URINE NEGATIVE (NEGATIVE); GLUCOSE, URINE NEGATIVE (NEGATIVE); KETONES,URINE NEGATIVE (NEGATIVE); PROTEIN,URINE >=500 mg/dL (NEGATIVE); URINE SPECIFIC GRAVITY 1.016; UROBILINOGEN,URINE NEGATIVE mg/dL (<2.0)
[2019-07-13 04:24] LABS: COLOR,URINE YELLOW
[2019-07-13 05:20] LABS: FREE T4 (FREE THYROXINE) 1.62 ng/dL (0.78-2.19)
[2019-07-13 05:34] LABS: THYROID STIMULATING HORMONE 5.79 uIU/mL (0.47-4.68)
[2019-07-13] MEDS ORDERED: FUROSEMIDE INJ/PF 100 MG/10 ML SDV ONE (06:02)
[2019-07-13] MEDS: NORMAL SALINE 250 ML with FUROSEMIDE 250 MG IV PRN ×4 (06:08→17:24)
[2019-07-13] MEDS: HEPARIN SOD (PORCINE) 5,000 UNIT/ML 1 ML VIAL SUBCUT SCH ×3 (06:10→21:23)
--- NOTE | 2019-07-13 09:22 | EKG REPORT ---
SEVERITY:- ABNORMAL ECG - SINUS BRADYCARDIA RIGHT AXIS DEVIATION NONSPECIFIC T ABNORMALITIES, ANT-LAT LEADS ESSENTIALLY CHANGED FROM 12/20/18 : Confirmed by: Zeeshan Castaneda MD 13-Jul-2019 09:21:57
[2019-07-13 11:40] LABS: ARTERIAL BLOOD FIO2 8L; ARTERIAL BLOOD H2CO3 2.67 mmol/L (1.05-1.35); ARTERIAL BLOOD O2 SATURATION 93.8 % (94-98); ARTERIAL BLOOD PH 7.23 (7.35-7.45); ARTERIAL BLOOD PO2 84.7 mmHg (80-100); ARTERIAL BLOOD TOTAL CO2 38.7 mmol/L (21-25)
[2019-07-13 11:41] LABS: ARTERIAL BLOOD PCO2 88.6 mmHg (35-45)
[2019-07-13] MEDS ORDERED: IPRATROPIUM/ALBUTEROL 0.5-2.5 MG/3 ML AMPUL NEB PRN (13:01)
--- NOTE | 2019-07-13 17:21 | PDOC H&P ---
History of Present Illness Admission Date/PCP: 07/13/19 04:14 JEN MAE MD History of Present Illness: GABINO ALEXANDER is a 74 year old female she has a history of progressive dementia, chronic obstructive pulmonary disease, she was brought to the emergency room from home by EMS for evaluation of acute onset leaning to the left side and weakness that started about 8 hours before presentation to the emergency room. She also have increased lower extremity swelling for the past 1 week, worsening shortness of breath the last few days. Again to the EMS the oxygen saturation was 82% on 4 L the oxygen saturation dropped to the low 70s when the EMS left the residence she was then placed on a nonrebreather at 10 L and the oxygen saturation improved to 96%.The CAT scan of the head without contrast was obtained in the emergency room, it demonstrated no acute hemorrhagic or mass- effect or midline shift there is no hydrocephalus, no significant volume loss, there are mild patchy hypodensities within the periventricular and subcortical white matter consistent with microangiopathic ischemic changes. The B type natruretic peptide, chest x-ray consistent with CHF. When I saw patient on the floor, she is virtually unresponsive the arterial blood gas on FiO2 8 L, pH 7.23, PCO2 88.6, PO2 84.7 bicarbonate 36 consistent with acute hypercapnic respiratory failure. Patient started on BiPAP to support breathing Past Medical History Cardiac Medical History: Reports: Congestive Heart Failure, Hypertension, Peripheral Vascular Disease Pulmonary Medical History: Reports: Chronic Obstructive Pulmonary Disease (COPD) - on home 4L O2 [place], Pneumonia, Respiratory Failure Neurological Medical History: Denies: Seizures Endocrine Medical History: Reports: Diabetes Mellitus Type 2, Hypothyroidism - w/med noncompliance and hx of myxedema coma GI Medical History: Reports: Gastroesophageal Reflux Disease Musculoskeltal Medical History: Reports: Arthritis Psychiatric Medical History: Reports: Depression Traumatic Medical History: Denies: Traumatic Brain Injury Past Surgical History Past Surgical History: Reports: Cholecystectomy, Orthopedic Surgery - L Wrist Denies: Hysterectomy Social History Lives with: Family Smoking Status: Current Every Day Smoker Electronic Cigarette use?: No Number of Years Smokin Last Time Smoked: 07/07/19 Frequency of Alcohol Use: None Hx Recreational Drug Use: No Drugs: None Hx Prescription Drug Abuse: No Family History Family History: Reviewed & Not Pertinent, CAD, DM, Hypertension Parental Family History Reviewed: Yes Children Family History Reviewed: Yes Sibling(s) Family History Reviewed.: Yes Medication/Allergy Home Medications: Acetaminophen [Tylenol 325 mg Tablet] 325 mg PO Q4HP PRN 12/20/18 Ipratropium/Albuterol Sulfate [Duoneb 3 ml Ampul] 1 inh IH Q6 PRN 12/21/18 Buspirone HCl [Buspar 10 mg Tablet] 10 mg PO Q12 #60 12/31/18 Duloxetine HCl [Cymbalta 30 mg Capsule.dr] 60 mg PO DAILY #30 12/31/18 Fluticasone/Umeclidin/Vilanter [Trelegy 100-62.5-25 Mcg Ellipta 14 Dose/Dpi] 1 inh IH DAILY #2 inhaler 12/31/18 Insulin Glargine,Hum.rec.anlog [Lantus (Pyxis) Insulin 100 Unit/1 ml 10 ml] 30 units SUBCUT QHS #2 unit 12/31/18 Levothyroxine Sodium [Synthroid] 250 mcg PO DAILY #30 12/31/18 Pantoprazole Sodium [Protonix [address] Tablet] 40 mg PO DAILY #30 tablet.dr Sitagliptin Phosphate [Januvia 50 mg Tablet] 100 mg PO DAILY #30 12/31/18 Allergies/Adverse Reactions: melon Allergy (Unknown, Verified 07/02/18 19:17) allopurinol [From Zyloprim] Allergy (Verified 03/06/18 03:47) amitriptyline HCl [From Elavil] Allergy (Verified 03/06/18 03:47) belladonna alkaloids [From Bellergal-S] Allergy (Verified 03/06/18 03:47) cefuroxime axetil [From Ceftin] Allergy (Verified 03/06/18 03:47) celecoxib [From Celebrex] Allergy (Verified 03/06/18 03:47) cimetidine [From Tagamet] Allergy (Verified 03/06/18 03:47) codeine [Codeine] Allergy (Verified 03/06/18 03:47) doxepin HCl [From [place]] Allergy (Verified 03/06/18 03:47) ergotamine tartrate [From Bellergal-S] Allergy (Verified 03/06/18 03:47) fluoxetine HCl [From Prozac] Allergy (Verified 03/06/18 03:47) hydroxyzine HCl [From Atarax] Allergy (Verified 03/06/18 03:47) indigotindisulfonic acid [From [facility]] Allergy (Verified 03/06/18 03:47) malathion Allergy (Verified 03/06/18 03:47) mefenamic acid Allergy (Verified 03/06/18 03:47) Milk Containing Products Allergy (Verified 03/06/18 03:47) naproxen sodium [From Anaprox] Allergy (Verified 03/06/18 03:47) nefazodone HCl [From Serzone] Allergy (Verified 03/06/18 03:47) phenylephrine tannate [From [place] [facility]] Allergy (Verified 03/06/18 03:47) pyrilamine tannate [From [place] [facility]] Allergy (Verified 03/06/18 03:47) tolterodine tartrate [From Detrol] Allergy (Verified 03/06/18 03:47) trazodone HCl [From Desyrel] Allergy (Verified 03/06/18 03:47) morphine Adverse Reaction (Verified 04/11/18 21:58) renuzil Allergy (Uncoded 01/24/18 17:48) surgical steel Allergy (Uncoded 01/24/18 17:48) Review of Systems ROS unobtainable: Due to mental status Physical Exam Vital Signs: Temp Pulse Resp BP Pulse Ox 98.1 F 61 19 135/54 H 93 07/13/19 15:09 07/13/19 16:19 07/13/19 16:19 07/13/19 15:09 07/13/19 16:19 Intake & Output 07/12/19 07/13/19 07/14/19 06:59 06:59 06:59 Output Total 1275 Balance -1275 Weight 85.7 kg General appearance: PRESENT: other - Patient is virtually unresponsive to tactile stimulus Eye exam: PRESENT: PERRLA Respiratory exam: PRESENT: decreased breath sounds Cardiovascular exam: PRESENT: +S1, +S2, systolic murmur GI/Abdominal exam: PRESENT: soft, other Neurological exam: PRESENT: altered Results Laboratory Results: 07/13/19 01:45 07/13/19 01:45 07/13/19 07/13/19 07/13/19 01:45 01:45 01:45 WBC 10.8 H RBC 3.75 Hgb 10.1 L Hct 32.6 L MCV 87 MCH 27.0 MCHC 31.0 L RDW 17.7 H Plt Count 197 Seg Neutrophils % 78.6 H Carbonic Acid HCO3/H2CO3 Ratio ABG pH ABG pCO2 ABG pO2 ABG HCO3 ABG O2 Saturation ABG Base Excess VBG pH VBG pCO2 VBG HCO3 VBG Base Excess FiO2 Sodium 134.7 L Potassium 4.7 Chloride 98 Carbon Dioxide 30 Anion Gap 7 BUN 32 H Creatinine 1.28 H Est GFR ( Amer) 49 L Glucose 210 H Lactic Acid 2.0 Calcium 7.9 L Magnesium Total Bilirubin 0.3 AST 32 Alkaline Phosphatase 86 Total Protein 6.8 Albumin 3.4 L TSH Free T4 Urine Color Urine Appearance Urine pH Ur Specific [place] Urine Protein Urine Glucose (UA) Urine Ketones Urine Blood Urine RBC (Auto) 07/13/19 07/13/19 07/13/19 01:45 01:45 03:30 WBC RBC Hgb Hct MCV MCH MCHC RDW Plt Count Seg Neutrophils % Carbonic Acid HCO3/H2CO3 Ratio ABG pH ABG pCO2 ABG pO2 ABG HCO3 ABG O2 Saturation ABG Base Excess VBG pH 7.23 L VBG pCO2 76.8 H* VBG HCO3 31.2 VBG Base Excess 2.0 FiO2 Sodium Potassium Chloride Carbon Dioxide Anion Gap BUN Creatinine Est GFR ( Amer) Glucose Lactic Acid Calcium Magnesium 2.1 Total Bilirubin AST Alkaline Phosphatase Total Protein Albumin TSH 5.79 H Free T4 1.62 Urine Color Urine Appearance Urine pH Ur Specific [place] Urine Protein Urine Glucose (UA) Urine Ketones Urine Blood Urine RBC (Auto) 07/13/19 07/13/19 07/13/19 03:43 06:20 10:05 WBC RBC Hgb Hct MCV MCH MCHC RDW Plt Count Seg Neutrophils % Carbonic Acid HCO3/H2CO3 Ratio ABG pH ABG pCO2 ABG pO2 ABG HCO3 ABG O2 Saturation ABG Base Excess VBG pH VBG pCO2 VBG HCO3 VBG Base Excess FiO2 Sodium Potassium Chloride Carbon Dioxide Anion Gap BUN Creatinine Est GFR ( Amer) Glucose Lactic Acid 0.8 0.7 Calcium Magnesium Total Bilirubin AST Alkaline Phosphatase Total Protein Albumin TSH Free T4 Urine Color YELLOW Urine Appearance CLOUDY Urine pH 5.0 Ur Specific [place] 1.016 Urine Protein >=500 H Urine Glucose (UA) NEGATIVE Urine Ketones NEGATIVE Urine Blood LARGE H Urine RBC (Auto) 5 07/13/19 11:00 WBC RBC Hgb Hct MCV MCH MCHC RDW Plt Count Seg Neutrophils % Carbonic Acid 2.67 H HCO3/H2CO3 Ratio 13:1 ABG pH 7.23 L ABG pCO2 88.6 H* ABG pO2 84.7 ABG HCO3 36.0 H ABG O2 Saturation 93.8 L ABG Base Excess 6.0 VBG pH VBG pCO2 VBG HCO3 VBG Base Excess FiO2 8L Sodium Potassium Chloride Carbon Dioxide Anion Gap BUN Creatinine Est GFR ( Amer) Glucose Lactic Acid Calcium Magnesium Total Bilirubin AST Alkaline Phosphatase Total Protein Albumin TSH Free T4 Urine Color Urine Appearance Urine pH Ur Specific [place] Urine Protein Urine Glucose (UA) Urine Ketones Urine Blood Urine RBC (Auto) 07/13/19 07/13/19 07/13/19 01:45 01:45 01:45 Creatine Kinase Cancelled Troponin I 0.071 NT-Pro-B Natriuret Pep 7630 H 07/13/19 07/13/19 07/13/19 06:20 06:20 10:05 Creatine Kinase 670 H 572 H Troponin I 0.099 NT-Pro-B Natriuret Pep 07/13/19 10:05 Creatine Kinase Troponin I 0.082 NT-Pro-B Natriuret Pep Impressions: Head CT 07/13/19 02:23 IMPRESSION: No acute intracranial findings. Chest X-Ray 07/13/19 02:24 IMPRESSION: Slightly worsening aeration of the lungs. Assessment & Plan - Diagnosis (1) Acute hypercapnic respiratory failure Is this a current diagnosis for this admission?: Yes Plan: This is probably from the loss of hypoxic drive due to excessive FiO2 oxygen therapy, start patient on noninvasive positive pressure ventilation. She has COPD still actively smoking tobacco, Start bronchodilators for wheezing (2) Acute diastolic heart failure Is this a current diagnosis for this admission?: Yes Plan: Order 2D echo for evaluation start low-dose furosemide infusion (3) Dementia Qualifiers: Dementia type: unspecified type Dementia behavioral disturbance: without behavioral disturbance Qualified Code(s): F03.90 - Unspecified dementia without behavioral disturbance Is this a current diagnosis for this admission?: Yes
[2019-07-13] MEDS: PHARMACY COMMUNICATION ORDER MC SCH (17:28)
[2019-07-14] MEDS: HEPARIN SOD (PORCINE) 5,000 UNIT/ML 1 ML VIAL SUBCUT SCH ×3 (05:14→21:41)
[2019-07-14 05:46] LABS: ABSOLUTE EOSINOPHILS # (AUTO) 0.2 10^3/uL (0.0-0.6); ABSOLUTE LYMPHOCYTES (AUTO) 1.1 10^3/uL (0.5-4.7); ABSOLUTE MONOCYTES (AUTO) 0.7 10^3/uL (0.1-1.4); ABSOLUTE NEUT (AUTO) 5.7 10^3/uL (1.7-8.2); BASOPHILS % (AUTO) 0.7 % (0-2); EOSINOPHILS % (AUTO) 2.9 % (0-6); HEMATOCRIT 32.7 % (36.0-47.0); HEMOGLOBIN 10.3 g/dL (12.0-15.5); LYMPHOCYTES % (AUTO) 13.9 % (13-45); MEAN CORPUSCULAR HGB CONC 31.5 g/dL (32.0-36.0); MEAN CORPUSCULAR VOLUME 86 fl (80-97); MONOCYTES % (AUTO) 8.8 % (3-13); PLATELET COUNT 160 10^3/uL (150-450); RED BLOOD COUNT 3.82 10^6/uL (3.72-5.28); RED CELL DISTRIBUTION WIDTH 17.5 % (11.5-14.0); SEGMENTED NEUTROPHILS % (AUTO) 73.7 % (42-78); TOTAL CELLS COUNTED % (AUTO) 100 %; WHITE BLOOD COUNT 7.7 10^3/uL (4.0-10.5)
[2019-07-14 06:04] LABS: ALBUMIN 3.3 g/dL (3.5-5.0); ALKALINE PHOSPHATASE 77 U/L (38-126); ASPARTATE AMINO TRANSFERASE 36 U/L (14-36); BILIRUBIN,TOTAL 0.4 mg/dL (0.2-1.3); CHOLESTEROL 106.59 mg/dL (0-200); TOTAL PROTEIN 6.5 g/dL (6.3-8.2); TRIGLYCERIDES 100 mg/dL (<150)
[2019-07-14 06:15] LABS: DIRECT LDL 65 mg/dL (<100)
[2019-07-14] MEDS: ACETAMINOPHEN 325 MG TABLET PO PRN (10:55)
[2019-07-14] MEDS: NORMAL SALINE 250 ML with FUROSEMIDE 250 MG IV PRN ×2 (18:06)
[2019-07-14] MEDS: PHARMACY COMMUNICATION ORDER MC SCH (18:10)
[2019-07-14 18:32] LABS: ALBUMIN 3.1 g/dL (3.5-5.0); ALKALINE PHOSPHATASE 75 U/L (38-126); ASPARTATE AMINO TRANSFERASE 32 U/L (14-36); BILIRUBIN,TOTAL 0.4 mg/dL (0.2-1.3); BLOOD UREA NITROGEN 29 mg/dL (7-20); CALCIUM 8.1 mg/dL (8.4-10.2); GLUCOSE 177 mg/dL (75-110); POTASSIUM 4.7 mmol/L (3.6-5.0); TOTAL PROTEIN 6.5 g/dL (6.3-8.2)
[2019-07-14 19:13] LABS: CHLORIDE 89 mmol/L (98-107)
[2019-07-14 19:27] LABS: ANION GAP 5 (5-19)
[2019-07-14 19:28] LABS: CARBON DIOXIDE 40 mmol/L (22-30)
[2019-07-14] MEDS ORDERED: ACETAMINOPHEN 325 MG TABLET PO PRN (20:32)
--- NOTE | 2019-07-14 20:45 | PDOC PROGRESS REPORT ---
Subjective Progress Note for:: 07/14/19 Subjective:: Patient seen by the bedside, she is a lot unresponsive today unlike yesterday when she was virtually unresponsive, she had hypercapnic respiratory failure with the loss of hypoxic drive. She also presented with CHF picture she was treated with Lasix infusion, this was discontinued today. 2D echo is done Reason For Visit: HEART FAILURE Physical Exam Vital Signs: Temp Pulse Resp BP Pulse Ox 98.1 F 64 16 133/47 H 92 07/14/19 11:34 07/14/19 16:27 07/14/19 16:27 07/14/19 11:34 07/14/19 16:27 Intake & Output 07/13/19 07/14/19 07/15/19 06:59 06:59 06:59 Intake Total 709 2361 Output Total 1278 1190 1875 Balance -1275 -2341 486 Weight 85.7 kg 84.1 kg General appearance: PRESENT: no acute distress Eye exam: PRESENT: PERRLA Respiratory exam: PRESENT: wheezes Cardiovascular exam: PRESENT: +S1, +S2 GI/Abdominal exam: PRESENT: soft Neurological exam: PRESENT: alert, CN II-XII grossly intact Results Laboratory Results: 07/14/19 04:36 07/14/19 18:04 07/14/19 07/14/19 07/14/19 04:36 04:36 18:04 WBC 7.7 RBC 3.82 Hgb 10.3 L Hct 32.7 L MCV 86 MCH 27.0 MCHC 31.5 L RDW 17.5 H Plt Count 160 Seg Neutrophils % 73.7 Sodium 134.1 L Potassium 4.7 Chloride 89 L Carbon Dioxide 40 H* Anion Gap 5 BUN 29 H Creatinine 1.45 H Est GFR ( Amer) 43 L Glucose 177 H Calcium 8.1 L Total Bilirubin 0.4 0.4 AST 36 32 Alkaline Phosphatase 77 75 Total Protein 6.5 6.5 Albumin 3.3 L 3.1 L Triglycerides 100 Cholesterol 106.59 LDL Cholesterol Direct 65 VLDL Cholesterol 20.0 HDL Cholesterol 32 L 07/13/19 03:43 Catheterized Urine Urine Culture - Final Group B Beta Streptococcus 07/13/19 07/13/19 07/13/19 01:45 01:45 01:45 Creatine Kinase Cancelled Troponin I 0.071 NT-Pro-B Natriuret Pep 7630 H 07/13/19 07/13/19 07/13/19 06:20 06:20 10:05 Creatine Kinase 670 H 572 H Troponin I 0.099 NT-Pro-B Natriuret Pep 07/13/19 07/13/19 07/13/19 10:05 16:50 16:50 Creatine Kinase 429 H Troponin I 0.082 0.059 NT-Pro-B Natriuret Pep 07/14/19 04:36 Creatine Kinase Troponin I NT-Pro-B Natriuret Pep 5290 H Impressions: Head CT 07/13/19 02:23 IMPRESSION: No acute intracranial findings. Chest X-Ray 07/13/19 02:24 IMPRESSION: Slightly worsening aeration of the lungs. Assessment & Plan - Diagnosis (1) Acute hypercapnic respiratory failure Is this a current diagnosis for this admission?: Yes Plan: Continue oxygen therapy, Bronchodilators (2) Acute diastolic heart failure Is this a current diagnosis for this admission?: Yes Plan: Continue treatment (3) Dementia Qualifiers: Dementia type: unspecified type Dementia behavioral disturbance: without behavioral disturbance Qualified Code(s): F03.90 - Unspecified dementia without behavioral disturbance Is this a current diagnosis for this admission?: Yes (4) Type 2 diabetes mellitus Qualifiers: Diabetes mellitus usp insulin use: without usp use Diabetes mellitus complication status: with neurologic complications Diabetes mellitus complication detail: with polyneuropathy Qualified Code(s): E11.42 - Type 2 diabetes mellitus with diabetic polyneuropathy Is this a current diagnosis for this admission?: Yes (5) Hypothyroidism (acquired) Is this a current diagnosis for this admission?: Yes - Time Time Spent with patient: 25-34 minutes Level of Care: IMCU Medications reviewed and adjusted accordingly: Yes
[2019-07-14] MEDS: BUSPIRONE HCL 10 MG TABLET PO SCH (21:44)
[2019-07-14] MEDS: INSULIN GLARGINE,HUM.REC.ANLOG 1,000 UNIT/10 ML VIAL SUBCUT SCH (21:44)
[2019-07-14] MEDS: SITAGLIPTIN PHOSPHATE 50 MG TABLET PO SCH (21:47)
[2019-07-14] MEDS: DULOXETINE HCL 30 MG CAPSULE.DR PO SCH (21:47)
[2019-07-14] MEDS: FLUTICASONE/UMECLIDIN/VILANTER 100-62.5-25 MCG/DOSE IH SCH (21:47)
[2019-07-14] MEDS ORDERED: INSULIN GLARGINE HUM REC ANLOG 30 UNIT SUBCUT SCH (22:00)
[2019-07-14] MEDS: IPRATROPIUM/ALBUTEROL 0.5-2.5 MG/3 ML AMPUL NEB SCH (23:03)
[2019-07-15] MEDS: IPRATROPIUM/ALBUTEROL 0.5-2.5 MG/3 ML AMPUL NEB SCH ×4 (02:29→20:14)
[2019-07-15 05:59] LABS: ABSOLUTE EOSINOPHILS # (AUTO) 0.2 10^3/uL (0.0-0.6); ABSOLUTE MONOCYTES (AUTO) 0.8 10^3/uL (0.1-1.4); BASOPHILS % (AUTO) 0.5 % (0-2); EOSINOPHILS % (AUTO) 2.8 % (0-6); HEMATOCRIT 31.7 % (36.0-47.0); HEMOGLOBIN 10.3 g/dL (12.0-15.5); LYMPHOCYTES % (AUTO) 12.8 % (13-45); MEAN CORPUSCULAR HEMOGLOBIN 27.3 pg (27.0-33.4); MEAN CORPUSCULAR HGB CONC 32.4 g/dL (32.0-36.0); MEAN CORPUSCULAR VOLUME 84 fl (80-97); MONOCYTES % (AUTO) 9.5 % (3-13); PLATELET COUNT 158 10^3/uL (150-450); RED BLOOD COUNT 3.76 10^6/uL (3.72-5.28); RED CELL DISTRIBUTION WIDTH 17.6 % (11.5-14.0); SEGMENTED NEUTROPHILS % (AUTO) 74.4 % (42-78); TOTAL CELLS COUNTED % (AUTO) 100 %; WHITE BLOOD COUNT 8.1 10^3/uL (4.0-10.5)
[2019-07-15] MEDS ORDERED: LEVOTHYROXINE SODIUM 0.1 MG TABLET PO SCH (06:00)
[2019-07-15] MEDS ORDERED: (PENDING PHARMACY ID) (Levothyroxine Sodium [Synthroid] 250 MCG) PO SCH (06:00)
[2019-07-15 06:17] LABS: BLOOD UREA NITROGEN 23 mg/dL (7-20); CALCIUM 8.4 mg/dL (8.4-10.2); CHLORIDE 91 mmol/L (98-107); GLUCOSE 154 mg/dL (75-110); POTASSIUM 4.6 mmol/L (3.6-5.0)
[2019-07-15 06:28] LABS: ANION GAP 2 (5-19)
[2019-07-15 06:32] LABS: CARBON DIOXIDE 43 mmol/L (22-30)
[2019-07-15] MEDS: LEVOTHYROXINE SODIUM 0.1 MG TABLET PO SCH (06:33)
[2019-07-15] MEDS: HEPARIN SOD (PORCINE) 5,000 UNIT/ML 1 ML VIAL SUBCUT SCH ×3 (06:33→23:13)
[2019-07-15] MEDS: LEVOTHYROXINE SODIUM 0.15 MG TABLET PO SCH (06:33)
[2019-07-15] MEDS: SITAGLIPTIN PHOSPHATE 50 MG TABLET PO SCH (09:14)
[2019-07-15] MEDS: BUSPIRONE HCL 10 MG TABLET PO SCH ×2 (09:14→23:14)
[2019-07-15] MEDS: FLUTICASONE/UMECLIDIN/VILANTER 100-62.5-25 MCG/DOSE IH SCH (09:14)
[2019-07-15] MEDS: DULOXETINE HCL 30 MG CAPSULE.DR PO SCH (09:14)
[2019-07-15] MEDS: PHARMACY COMMUNICATION ORDER MC SCH (17:12)
--- NOTE | 2019-07-15 20:25 | PDOC PROGRESS REPORT ---
Subjective Progress Note for:: 07/15/19 Subjective:: Patient is alert, she complain of joint pain.She is more responsive today Reason For Visit: HEART FAILURE Physical Exam Vital Signs: Temp Pulse Resp BP Pulse Ox 98.4 F 73 16 153/50 H 94 07/15/19 16:39 07/15/19 16:39 07/15/19 16:39 07/15/19 16:39 07/15/19 16:39 Intake & Output 07/14/19 07/15/19 07/16/19 06:59 06:59 06:59 Intake Total 709 2841 538 Output Total 3057 9563 1200 Balance -0920 -2084 -662 Weight 84.1 kg 82.4 kg General appearance: PRESENT: no acute distress Eye exam: PRESENT: PERRLA Cardiovascular exam: PRESENT: +S1, +S2 GI/Abdominal exam: PRESENT: soft Neurological exam: PRESENT: alert Results Laboratory Results: 07/15/19 05:00 07/15/19 05:00 07/15/19 07/15/19 05:00 05:00 WBC 8.1 RBC 3.76 Hgb 10.3 L Hct 31.7 L MCV 84 MCH 27.3 MCHC 32.4 RDW 17.6 H Plt Count 158 Seg Neutrophils % 74.4 Sodium 135.8 L Potassium 4.6 Chloride 91 L Carbon Dioxide 43 H* Anion Gap 2 L BUN 23 H Creatinine 1.18 Est GFR ( Amer) 54 L Glucose 154 H Calcium 8.4 07/13/19 07/13/19 07/13/19 01:45 01:45 01:45 Creatine Kinase Cancelled Troponin I 0.071 NT-Pro-B Natriuret Pep 7630 H 07/13/19 07/13/19 07/13/19 06:20 06:20 10:05 Creatine Kinase 670 H 572 H Troponin I 0.099 NT-Pro-B Natriuret Pep 07/13/19 07/13/19 07/13/19 10:05 16:50 16:50 Creatine Kinase 429 H Troponin I 0.082 0.059 NT-Pro-B Natriuret Pep 07/14/19 04:36 Creatine Kinase Troponin I NT-Pro-B Natriuret Pep 5290 H Impressions: Head CT 07/13/19 02:23 IMPRESSION: No acute intracranial findings. Chest X-Ray 07/13/19 02:24 IMPRESSION: Slightly worsening aeration of the lungs. 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
[2019-07-15] MEDS: INSULIN GLARGINE,HUM.REC.ANLOG 1,000 UNIT/10 ML VIAL SUBCUT SCH (23:13)
[2019-07-16] MEDS: IPRATROPIUM/ALBUTEROL 0.5-2.5 MG/3 ML AMPUL NEB SCH ×4 (02:04→20:06)
[2019-07-16] MEDS ORDERED: DEXTROSE 40% GEL 15 GM TUBE PO PRN ×2 (04:13)
[2019-07-16] MEDS ORDERED: DEXTROSE 50%-WATER 25 GM/50 ML DISP.SYRIN IV PRN ×2 (04:13)
[2019-07-16 04:35] LABS: URINE AMPHETAMINES SCREEN NEGATIVE; URINE BARBITURATES SCREEN NEGATIVE; URINE BENZODIAZEPINES SCREEN NEGATIVE; URINE COCAINE SCREEN NEGATIVE; URINE MARIJUANA (THC) SCREEN NEGATIVE; URINE METHADONE SCREEN NEGATIVE; URINE PHENCYCLIDINE SCREEN NEGATIVE
[2019-07-16 04:40] LABS: URINE CREATININE 65.2 mg/dL (15-278)
[2019-07-16 04:48] LABS: UR PRO/CREAT RATIO RESULT 3.7 mg/mg (0.0-0.2)
[2019-07-16] MEDS: HEPARIN SOD (PORCINE) 5,000 UNIT/ML 1 ML VIAL SUBCUT SCH ×3 (05:19→22:02)
[2019-07-16] MEDS: LEVOTHYROXINE SODIUM 0.1 MG TABLET PO SCH (05:36)
[2019-07-16] MEDS: LEVOTHYROXINE SODIUM 0.15 MG TABLET PO SCH (05:36)
[2019-07-16] MEDS: FLUTICASONE/UMECLIDIN/VILANTER 100-62.5-25 MCG/DOSE IH SCH (09:10)
[2019-07-16] MEDS: SITAGLIPTIN PHOSPHATE 50 MG TABLET PO SCH (09:10)
[2019-07-16] MEDS: BUSPIRONE HCL 10 MG TABLET PO SCH ×2 (09:10→22:02)
[2019-07-16] MEDS: DULOXETINE HCL 30 MG CAPSULE.DR PO SCH (09:10)
[2019-07-16 09:57] LABS: ABSOLUTE EOSINOPHILS # (AUTO) 0.1 10^3/uL (0.0-0.6); ABSOLUTE LYMPHOCYTES (AUTO) 0.9 10^3/uL (0.5-4.7); ABSOLUTE MONOCYTES (AUTO) 0.7 10^3/uL (0.1-1.4); ABSOLUTE NEUT (AUTO) 6.1 10^3/uL (1.7-8.2); BASOPHILS % (AUTO) 0.5 % (0-2); HEMATOCRIT 30.5 % (36.0-47.0); HEMOGLOBIN 9.8 g/dL (12.0-15.5); LYMPHOCYTES % (AUTO) 11.4 % (13-45); MEAN CORPUSCULAR HEMOGLOBIN 27.2 pg (27.0-33.4); MEAN CORPUSCULAR VOLUME 85 fl (80-97); MONOCYTES % (AUTO) 8.8 % (3-13); PLATELET COUNT 160 10^3/uL (150-450); RED CELL DISTRIBUTION WIDTH 17.3 % (11.5-14.0); SEGMENTED NEUTROPHILS % (AUTO) 78.3 % (42-78); TOTAL CELLS COUNTED % (AUTO) 100 %; WHITE BLOOD COUNT 7.8 10^3/uL (4.0-10.5)
[2019-07-16 10:13] LABS: ALKALINE PHOSPHATASE 64 U/L (38-126); ASPARTATE AMINO TRANSFERASE 20 U/L (14-36); BILIRUBIN,TOTAL 0.4 mg/dL (0.2-1.3); BLOOD UREA NITROGEN 20 mg/dL (7-20); CALCIUM 7.7 mg/dL (8.4-10.2); CHLORIDE 89 mmol/L (98-107); GLUCOSE 113 mg/dL (75-110); POTASSIUM 4.5 mmol/L (3.6-5.0); TOTAL PROTEIN 5.7 g/dL (6.3-8.2)
[2019-07-16 10:23] LABS: ANION GAP 2 (5-19); CARBON DIOXIDE 44 mmol/L (22-30)
[2019-07-16] MEDS: PHARMACY COMMUNICATION ORDER MC SCH (17:33)
--- NOTE | 2019-07-16 18:49 | PDOC PROGRESS REPORT ---
Subjective Progress Note for:: 07/16/19 Subjective:: Patient seen by the bedside, she is alert Reason For Visit: HEART FAILURE Physical Exam Vital Signs: Temp Pulse Resp BP Pulse Ox 98.7 F 74 18 101/71 95 07/16/19 16:08 07/16/19 16:08 07/16/19 16:08 07/16/19 16:08 07/16/19 16:08 Intake & Output 07/15/19 07/16/19 07/17/19 06:59 06:59 06:59 Intake Total 2841 538 924 Output Total 3581 1700 Balance -2084 -1163 924 Weight 82.4 kg 81.2 kg General appearance: PRESENT: no acute distress Eye exam: PRESENT: PERRLA Respiratory exam: PRESENT: clear to auscultation oh Cardiovascular exam: PRESENT: +S1, +S2 GI/Abdominal exam: PRESENT: soft Neurological exam: PRESENT: alert, CN II-XII grossly intact Results Laboratory Results: 07/16/19 09:47 07/16/19 09:47 07/16/19 07/16/19 09:47 09:47 WBC 7.8 RBC 3.60 L Hgb 9.8 L Hct 30.5 L MCV 85 MCH 27.2 MCHC 32.0 RDW 17.3 H Plt Count 160 Seg Neutrophils % 78.3 H Sodium 134.6 L Potassium 4.5 Chloride 89 L Carbon Dioxide 44 H* Anion Gap 2 L BUN 20 Creatinine 0.93 Est GFR ( Amer) > 60 Glucose 113 H Calcium 7.7 L Total Bilirubin 0.4 AST 20 Alkaline Phosphatase 64 Total Protein 5.7 L Albumin 3.0 L 07/16/19 04:00 [place] Catheter Urine Culture - Final Group B Beta Streptococcus 07/13/19 21:25 Sputum Gram Stain - Final 07/13/19 21:25 Sputum Sputum Culture - Final NORMAL TERESA 07/13/19 07/13/19 07/13/19 01:45 01:45 01:45 Creatine Kinase Cancelled Troponin I 0.071 NT-Pro-B Natriuret Pep 7630 H 07/13/19 07/13/19 07/13/19 06:20 06:20 10:05 Creatine Kinase 670 H 572 H Troponin I 0.099 NT-Pro-B Natriuret Pep 07/13/19 07/13/1907/12/20 10:05 16:50 16:50 Creatine Kinase 429 H Troponin I 0.082 0.059 NT-Pro-B Natriuret Pep 07/14/19 04:36 Creatine Kinase Troponin I NT-Pro-B Natriuret Pep 5290 H Impressions: Head CT 07/13/19 02:23 IMPRESSION: No acute intracranial findings. Chest X-Ray 07/13/19 02:24 IMPRESSION: Slightly worsening aeration of the lungs. 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
[2019-07-16] MEDS: INSULIN GLARGINE,HUM.REC.ANLOG 1,000 UNIT/10 ML VIAL SUBCUT SCH (22:03)
[2019-07-17] MEDS: IPRATROPIUM/ALBUTEROL 0.5-2.5 MG/3 ML AMPUL NEB SCH ×4 (02:28→19:52)
[2019-07-17] MEDS: LEVOTHYROXINE SODIUM 0.1 MG TABLET PO SCH (05:15)
[2019-07-17] MEDS: HEPARIN SOD (PORCINE) 5,000 UNIT/ML 1 ML VIAL SUBCUT SCH ×3 (05:15→21:57)
[2019-07-17] MEDS: LEVOTHYROXINE SODIUM 0.15 MG TABLET PO SCH (05:16)
[2019-07-17] MEDS: SITAGLIPTIN PHOSPHATE 50 MG TABLET PO SCH (09:46)
[2019-07-17] MEDS: FLUTICASONE/UMECLIDIN/VILANTER 100-62.5-25 MCG/DOSE IH SCH (09:47)
[2019-07-17] MEDS: BUSPIRONE HCL 10 MG TABLET PO SCH ×2 (09:47→21:58)
[2019-07-17] MEDS: DULOXETINE HCL 30 MG CAPSULE.DR PO SCH (09:47)
--- NOTE | 2019-07-17 20:39 | PDOC PROGRESS REPORT ---
Subjective Progress Note for:: 07/17/19 Subjective:: Patient seen by the bedside, she Will require hospital bed on discharge, because of very severe COPD, severe osteoarthritis affecting multiple joints, she will need the need to adjust the head of the bed frequent position changing for alleviation of pain and also to aid with breathing comfortably, to prevent aspiration. Consultation is requested from discharge planners to arrange hospital bed and a wheelchair for this patient on discharge Reason For Visit: HEART FAILURE Physical Exam Vital Signs: Temp Pulse Resp BP Pulse Ox 98.6 F 73 18 145/57 H 96 07/17/19 17:31 07/17/19 19:52 07/17/19 19:52 07/17/19 17:31 07/17/19 19:52 Intake & Output 07/16/19 07/17/19 07/18/19 06:59 06:59 06:59 Intake Total 538 2910 1626 Output Total 1700 2625 1420 Balance -1162 285 206 Weight 81.2 kg 80.6 kg 80.6 kg General appearance: PRESENT: no acute distress Eye exam: PRESENT: PERRLA Respiratory exam: PRESENT: rhonchi Cardiovascular exam: PRESENT: +S1, +S2 GI/Abdominal exam: PRESENT: soft Neurological exam: PRESENT: alert, CN II-XII grossly intact Results Laboratory Results: 07/16/19 09:47 07/16/19 09:47 07/13/19 07/13/19 07/13/19 01:45 01:45 01:45 Creatine Kinase Cancelled Troponin I 0.071 NT-Pro-B Natriuret Pep 7630 H 07/13/19 07/13/19 07/13/19 06:20 06:20 10:05 Creatine Kinase 670 H 572 H Troponin I 0.099 NT-Pro-B Natriuret Pep 07/13/19 07/13/19 07/13/19 10:05 16:50 16:50 Creatine Kinase 429 H Troponin I 0.082 0.059 NT-Pro-B Natriuret Pep 07/14/19 04:36 Creatine Kinase Troponin I NT-Pro-B Natriuret Pep 5290 H Impressions: Head CT 07/13/19 02:23 IMPRESSION: No acute intracranial findings. Chest X-Ray 07/13/19 02:24 IMPRESSION: Slightly worsening aeration of the lungs. Assessment & Plan - Diagnosis (1) Acute hypercapnic respiratory failure Is this a current diagnosis for this admission?: Yes Plan: Patient no longer requiring BiPAP on oxygen nasal cannula 2 L (2) Acute diastolic heart failure Is this a current diagnosis for this admission?: Yes (3) Dementia Qualifiers: Dementia type: unspecified type Dementia behavioral disturbance: without behavioral disturbance Qualified Code(s): F03.90 - Unspecified dementia without behavioral disturbance Is this a current diagnosis for this admission?: Yes (4) Type 2 diabetes mellitus Qualifiers: Diabetes mellitus intermediate insulin use: without intermediate use Diabetes mellitus complication status: with neurologic complications Diabetes mellitus complication detail: with polyneuropathy Qualified Code(s): E11.42 - Type 2 diabetes mellitus with diabetic polyneuropathy Is this a current diagnosis for this admission?: Yes (5) Hypothyroidism (acquired) Is this a current diagnosis for this admission?: Yes - Time Time Spent with patient: 25-34 minutes Level of Care: IMCU
--- NOTE | 2019-07-17 22:15 | XCELERA REPORT ---
[address] [address] Transthoracic Echocardiogram Report Name: GABINO ALEXANDER Age: 74 yrs Gender: Female : 1945 Patient Status: Inpatient Patient Location: [address] [place], [place] [id number] Study Date: 07/14/2019 05:43 PM Height: 63 in Weight: 198 lb BSA: 1.9 m2 Procedure: A two-dimensional transthoracic echocardiogram with color flow and Doppler was performed. The study was technically difficult with many images being suboptimal in quality. Reason For Study: chf History: CHF. Ordering Physician: JEN MAE Performed By: Bethany La Interpretation Summary A two-dimensional transthoracic echocardiogram with color flow and Doppler was performed. The left ventricle is normal in size. There is normal left ventricular wall thickness. LV EF is 65% Left ventricular systolic function is normal. Doppler measurements suggest normal left ventricular diastolic function The left ventricular wall motion is normal. There is no thrombus. cannot assess ASD,VSD,or PFO. Right atrium not well visualized secondary to technical limitations The left atrium is moderately dilated. There is no evidence of mitral valve prolapse. There is no vegetation seen on the mitral valve. There is no mitral valve stenosis. There is a trace amount of mitral regurgitation There is no aortic valvular vegetation. There is mild aortic stenosis There is a peak gradient of 32 mm of Hg. There is no LVOT obstruction. No aortic regurgitation is present. There is no tricuspid stenosis. TR jet not well interogated.Estimated RVSP seems to be too high, hence would do a follow up limited TR jet interogation for RVSP estimation. There is no pulmonic valvular stenosis. There is no pulmonic valvular regurgitation. The aortic root is not well visualized but is probably normal size. The inferior vena cava appeared dilated and decreased < 50% with respiration (RAP 15-20 mmHg) There is no pericardial effusion. MMode/2D Measurements & Calculations RVDd: 3.1 cm LVIDd: 5.1 cm FS: 46.2 % Ao root diam: 3.4 cm IVSd: 1.1 cm LVIDs: 2.7 cm EDV(Teich): 122.5 ml Ao root area: 9.0 cm2 LVPWd: 0.98 cm ESV(Teich): 27.8 ml LA dimension: 4.9 cm EF(Teich): 77.3 % LVOT diam: 1.9 cm LVOT area: 2.9 cm2 Doppler Measurements & Calculations MV E max gaby: MV P1/2t max gaby: Ao V2 max: LV V1 max P.2 cm/sec 140.6 cm/sec 282.3 cm/sec 9.4 mmHg MV A max gaby: MV P1/2t: 62.5 msec Ao max PG: LV V1 mean P.8 cm/sec MVA(P1/2t): 3.5 cm2 31.9 mmHg 4.2 mmHg MV E/A: 1.2 MV dec slope: Ao V2 mean: LV V1 max: 142.6 cm/sec 153.6 cm/sec 659.3 cm/sec2 Ao mean PG: LV V1 mean: MV dec time: 0.21 sec 10.8 mmHg 93.8 cm/sec Ao V2 VTI: 58.7 cmLV V1 VTI: 32.7 cm IVY(I,D): 1.6 cm2 IVY(V,D): 1.6 cm2 SV(LVOT): 94.9 ml PA V2 max: TR max gaby: MV P1/2t-pr_phl: 110.2 cm/sec 474.5 cm/sec 62.5 msec PA max P.9 mmHg TR max P.0 mmHg Left Ventricle The left ventricle is normal in size. There is normal left ventricular wall thickness. LV EF is 65%. Left ventricular systolic function is normal. Doppler measurements suggest normal left ventricular diastolic function. The left ventricular wall motion is normal. There is no thrombus. cannot assess ASD,VSD,or PFO. Right Ventricle The right ventricle is not well visualized secondary to technical limitations. Atria Right atrium not well visualized secondary to technical limitations. The left atrium is moderately dilated. Mitral Valve There is no evidence of mitral valve prolapse. There is no vegetation seen on the mitral valve. There is no mitral valve stenosis. There is a trace amount of mitral regurgitation. Aortic Valve There is no aortic valvular vegetation. There is mild aortic stenosis. There is a peak gradient of 32 mm of Hg. There is no LVOT obstruction. No aortic regurgitation is present. Tricuspid Valve There is no tricuspid stenosis. TR jet not well interogated.Estimated RVSP seems to be too high, hence would do a follow up limited TR jet interogation for RVSP estimation. Pulmonic Valve There is no pulmonic valvular stenosis. There is no pulmonic valvular regurgitation. Great Vessels The aortic root is not well visualized but is probably normal size. The inferior vena cava appeared dilated and decreased < 50% with respiration (RAP 15-20 mmHg). Effusions There is no pericardial effusion. : JEN MAE Lakshmi
[2019-07-17] MEDS: INSULIN GLARGINE,HUM.REC.ANLOG 1,000 UNIT/10 ML VIAL SUBCUT SCH (22:21)
--- NOTE | 2019-07-17 22:22 | XCELERA REPORT ---
[address] [address] Transthoracic Echocardiogram Report Name: GABINO ALEXANDER Age: 74 yrs Gender: Female : 1945 Patient Status: Inpatient Patient Location: [facility]^A Study Date: 07/16/2019 03:37 PM Height: 63 in Weight: 179 lb BSA: 1.8 m2 Procedure: A two-dimensional transthoracic echocardiogram with color flow and Doppler was performed in limited views only. The study was technically limited with all images being suboptimal in quality. Reason For Study: REASSESS TR AND PULMONARY HYPERTENSION History: EASSESS TR AND PULMONARY HYPERTENSION. Ordering Physician: JEN MAE Performed By: Chano Davalos Interpretation Summary There is no tricuspid stenosis. There is a mild amount of tricuspid regurgitation There is servere pulmonary hypertension by echo RVSP IS 74 MM OF hG WITH RA MEAN OF 10. The inferior vena cava was not visualized MMode/2D Measurements & Calculations RVDd: 2.8 cm LVIDd: 4.6 cm FS: 38.8 % Ao root diam: 2.9 cm IVSd: 1.3 cm LVIDs: 2.8 cm EDV(Teich): 99.6 ml Ao root area: 6.7 cm2 LVPWd: 1.3 cm ESV(Teich): 30.7 ml LA dimension: 4.1 cm EF(Teich): 69.1 % LVOT diam: 1.9 cm LVOT area: 3.0 cm2 Doppler Measurements & Calculations TR max gaby: 399.1 cm/sec TR max P.7 mmHg Tricuspid Valve There is no tricuspid stenosis. There is a mild amount of tricuspid regurgitation. There is servere pulmonary hypertension by echo. RVSP IS 74 MM OF hG WITH RA MEAN OF 10. Great Vessels The inferior vena cava was not visualized. : JEN MAE, Nidhi
[2019-07-18] MEDS: IPRATROPIUM/ALBUTEROL 0.5-2.5 MG/3 ML AMPUL NEB SCH ×4 (02:09→19:51)
[2019-07-18] MEDS: LEVOTHYROXINE SODIUM 0.1 MG TABLET PO SCH (05:44)
[2019-07-18] MEDS: HEPARIN SOD (PORCINE) 5,000 UNIT/ML 1 ML VIAL SUBCUT SCH ×3 (05:44→21:02)
[2019-07-18] MEDS: LEVOTHYROXINE SODIUM 0.15 MG TABLET PO SCH (05:44)
[2019-07-18] MEDS: SITAGLIPTIN PHOSPHATE 50 MG TABLET PO SCH (09:28)
[2019-07-18] MEDS: DULOXETINE HCL 30 MG CAPSULE.DR PO SCH (09:29)
[2019-07-18] MEDS: BUSPIRONE HCL 10 MG TABLET PO SCH ×2 (09:29→21:02)
[2019-07-18] MEDS: FLUTICASONE/UMECLIDIN/VILANTER 100-62.5-25 MCG/DOSE IH SCH (09:29)
--- NOTE | 2019-07-18 20:07 | PDOC CONSULTATION ---
Consultation-Blank Consultation: CARDIOLOGY CONSULTATION by Dr. Nidhi Frank on 07/18/2019. Patient seen at 2:30 PM on 07/18/2019. 60 minutes spent on this patient with more than 50% of the time spent direct patient care. REASON FOR CONSULTATION: Congestive heart failure, and severe pulmonary hypertension on echocardiogram. CONSULT REQUESTING PHYSICIAN: Dr. Gillette HISTORY OF PRESENT ILLNESS: Unable to get a good history from the patient due to her dementia. But she states that she is not short of breath or having any chest pain or discomfort. On the monitor there is no arrhythmias seen. On reviewing the chart the patient was admitted on 07/13/2019 due to the patient's leading to a left while walking. A CVA was excluded by CT scan of the head. The patient also was found to be hypoxic and was diagnosed with acute exacerbation of COPD and was seen to be have leg edema and shortness of breath and the patient was placed on IV Lasix with improvement. At present she has only trace leg edema. There is no history of documented coronary artery disease. The patient does have a history of diabetes mellitus and hypothyroidi sm. As per records the patient has noncompliance to medication and diet. There is no history of fever chills or Reiger's. No further history is available Past Medical History Cardiac Medical History: Reports: Congestive Heart Failure, Hypertension, Peripheral Vascular Disease Pulmonary Medical History: Reports: Chronic Obstructive Pulmonary Disease (COPD) - on home 4L O2 [place], Pneumonia, Respiratory Failure Neurological Medical History: Denies: Seizures Endocrine Medical History: Reports: Diabetes Mellitus Type 2, Hypothyroidism - w/med noncompliance and hx of myxedema coma GI Medical History: Reports: Gastroesophageal Reflux Disease Musculoskeltal Medical History: Reports: Arthritis Psychiatric Medical History: Reports: Depression Traumatic Medical History: Denies: Traumatic Brain Injury Past Surgical History Past Surgical History: Reports: Cholecystectomy, Orthopedic Surgery - L Wrist Denies: Hysterectomy RESUSCITATION STATUS: The patient is a full code. She states her son is a surrogate healthcare decision maker. Social History Lives with: Family Smoking Status: Current Every Day Smoker Electronic Cigarette use?: No Number of Years Smokin Last Time Smoked: 07/07/19 Frequency of Alcohol Use: None Hx Recreational Drug Use: No Drugs: None Hx Prescription Drug Abuse: No Family History Family History: Reviewed & Not Pertinent, CAD, DM, Hypertension Parental Family History Reviewed: Yes Children Family History Reviewed: Yes Sibling(s) Family History Reviewed.: Yes Medication/Allergy Home Medications: Acetaminophen [Tylenol 325 mg Tablet] 325 mg PO Q4HP PRN 12/20/18 Ipratropium/Albuterol Sulfate [Duoneb 3 ml Ampul] 1 inh IH Q6 PRN 12/21/18 Buspirone HCl [Buspar 10 mg Tablet] 10 mg PO Q12 #60 12/31/18 Duloxetine HCl [Cymbalta 30 mg Capsule.dr] 60 mg PO DAILY #30 12/31/18 Fluticasone/Umeclidin/Vilanter [Trelegy 100-62.5-25 Mcg Ellipta 14 Dose/Dpi] 1 inh IH DAILY #2 inhaler 12/31/18 Insulin Glargine,Hum.rec.anlog [Lantus (Pyxis) Insulin 100 Unit/1 ml 10 ml] 30 units SUBCUT QHS #2 unit 12/31/18 Levothyroxine Sodium [Synthroid] 250 mcg PO DAILY #30 12/31/18 Pantoprazole Sodium [Protonix [address] Tablet] 40 mg PO DAILY #30 tablet.dr 12/31/18 Sitagliptin Phosphate [Januvia 50 mg Tablet] 100 mg PO DAILY #30 12/31/18 Allergies/Adverse Reactions: melon Allergy (Unknown, Verified 07/02/18 19:17) allopurinol [From Zyloprim] Allergy (Verified 03/06/18 03:47) amitriptyline HCl [From Elavil] Allergy (Verified 03/06/18 03:47) belladonna alkaloids [From Bellergal-S] Allergy (Verified 03/06/18 03:47) cefuroxime axetil [From Ceftin] Allergy (Verified 03/06/18 03:47) celecoxib [From Celebrex] Allergy (Verified 03/06/18 03:47) cimetidine [From Tagamet] Allergy (Verified 03/06/18 03:47) codeine [Codeine] Allergy (Verified 03/06/18 03:47) doxepin HCl [From [place]] Allergy (Verified 03/06/18 03:47) ergotamine tartrate [From Bellergal-S] Allergy (Verified 03/06/18 03:47) fluoxetine HCl [From Prozac] Allergy (Verified 03/06/18 03:47) hydroxyzine HCl [From Atarax] Allergy (Verified 03/06/18 03:47) indigotindisulfonic acid [From [place]] Allergy (Verified 03/06/18 03:47) malathion Allergy (Verified 03/06/18 03:47) mefenamic acid Allergy (Verified 03/06/18 03:47) Milk Containing Products Allergy (Verified 03/06/18 03:47) naproxen sodium [From Anaprox] Allergy (Verified 03/06/18 03:47) nefazodone HCl [From Serzone] Allergy (Verified 03/06/18 03:47) phenylephrine tannate [From [place] [facility]] Allergy (Verified 03/06/18 03:47) pyrilamine tannate [From [place] CT] Allergy (Verified 03/06/18 03:47) tolterodine tartrate [From Detrol] Allergy (Verified 03/06/18 03:47) trazodone HCl [From Desyrel] Allergy (Verified 03/06/18 03:47) morphine Adverse Reaction (Verified 04/11/18 21:58) renuzil Allergy (Uncoded 01/24/18 17:48) surgical steel Allergy (Uncoded 01/24/18 17:48) Review of Systems ROS unobtainable: Due to mental status Current Medications Generic Name Dose Route Start Last Admin Trade Name Freq PRN Reason Stop Dose Admin Acetaminophen 650 mg 07/14/19 10:18 07/14/19 10:55 Tylenol 325 Mg Tablet PO 08/13/19 10:17 650 mg Q6HP PRN Administration TEMP OR PAIN Acetaminophen 325 mg 07/14/19 20:32 Tylenol 325 Mg Tablet PO 08/13/19 20:31 Q4HP PRN FOR PAIN Albuterol/Ipratropium 3 ml 07/13/19 13:01 07/13/19 16:19 Duoneb 3 Ml Ampul NEB 08/12/19 13:00 3 ml RTQ6HP PRN Administration WHEEZING Albuterol/Ipratropium 3 ml 07/14/19 21:00 07/18/19 19:51 Duoneb 3 Ml Ampul NEB 08/13/19 20:59 3 ml RTQ6 COLLIN Administration Buspirone HCl 10 mg 07/14/19 22:00 07/18/19 21:02 Buspar 10 Mg Tablet PO 08/13/19 21:59 10 mg Q12 COLLIN Administration Dextrose 12.5 gm 07/16/19 04:13 Dextrose Inj 50% Syringe (25 Gm/50 Ml) IV 08/15/19 04:12 PRN PRN FOR BG 50-69 IN ALERT PATIENT Protocol Dextrose 25 gm 07/16/19 04:13 07/16/19 04:41 Dextrose Inj 50% Syringe (25 Gm/50 Ml) IV 08/15/19 04:12 25 gm PRN PRN Administration PER PROTOCOL Protocol Duloxetine HCl 60 mg 07/14/19 21:00 07/18/19 09:29 Cymbalta 30 Mg Capsule. PO 08/13/19 20:59 60 mg DAILY COLLIN Administration Fluticasone/Vilanterol 1 inh 07/14/19 21:00 07/18/19 09:29 Trelegy 100-62.5-25 Mcg Ellipta 14 Dose/Dpi IH 08/13/19 20:59 1 puff DAILY COLLIN Administration Glucose 15 gm 07/16/19 04:13 Glutose 40% Gel 15 Gm Tube PO 08/15/19 04:12 PRN PRN FOR BG 50-69 IN ALERT PATIENT Protocol Glucose 30 gm 07/16/19 04:13 Glutose 40% Gel 15 Gm Tube PO 08/15/19 04:12 PRN PRN FOR BG < 50 IN ALERT PATIENT Protocol Heparin Sodium (Porcine) 5,000 unit 07/13/19 06:00 07/18/19 21:02 Heparin Inj 5,000 Units/Ml 1 Ml Vial SUBCUT 08/12/19 05:59 5,000 unit Q8 COLLIN Administration Insulin Glargine 30 unit 07/14/19 22:00 07/18/19 21:02 Lantus Insulin 100 Unit/1 Ml 10 Ml SUBCUT 08/13/19 21:59 Not Given QHS COLLIN Levothyroxine Sodium 0.1 mg 07/15/19 06:00 07/18/19 05:44 Synthroid 0.1 Mg Tablet PO 08/14/19 05:59 0.1 mg Q6AM COLLIN Administration Levothyroxine Sodium 0.15 mg 07/15/19 06:00 07/18/19 05:44 Synthroid 0.15 Mg Tablet PO 08/14/19 05:59 0.15 mg Q6AM COLLIN Administration Sitagliptin Phosphate 100 mg 07/14/19 21:00 07/18/19 09:28 Januvia 50 Mg Tablet PO 08/13/19 20:59 100 mg DAILY COLLIN Administration Sodium Chloride 2.5 ml 07/13/19 06:00 07/18/19 21:03 Saline Flush 2.5 Ml Monoject Prefil Syrin IV 08/12/19 05:59 Not Given Q8 COLLIN Discontinued Medications Generic Name Dose Route Start Last Admin Trade Name Freq PRN Reason Stop Dose Admin Furosemide 40 mg 07/13/19 04:01 07/13/19 04:30 Lasix Inj/Pf 20 Mg/2 Ml Sdv IV 07/13/19 04:02 40 mg NOW ONE Administration Furosemide Confirm 07/13/19 06:02 07/13/19 06:09 Lasix Inj/Pf 100 Mg/10 Ml Sdv Administered 07/13/19 06:03 Not Given Dose 100 mg .ROUTE .STK-MED ONE Furosemide 250 mg/ Sodium 275 mls @ 2.2 mls/hr 07/13/19 04:28 07/15/19 07:00 Chloride IV 08/12/19 04:27 Infused CONTINUOUS PRN Infusion THIS MED IS NOT "PRN" 2 MG/HR Levothyroxine Sodium 0.1 mg 07/15/19 06:00 Synthroid 0.1 Mg Tablet PO 08/14/19 05:59 Q6AM [facility] Profile Note 1 each 07/13/19 18:00 07/16/19 17:33 Medication Communication Order 08/12/19 17:59 Not Given 1800 COLLIN PHYSICAL EXAMINATION:: The patient is mildly obese. In no acute distress. Selected Entries 07/18/19 15:14 Temperature 98.6 F Temperature Oral Source Pulse Rate 65 Respiratory 20 Rate Blood Pressure 138/53 H Blood Pressure 81 Mean BP Location Left Arm BP Position Supine O2 Sat by Pulse 97 Oximetry Oxygen Flow 5.00 Rate Oxygen Delivery Nasal Cannula Method Head: Is atraumatic normocephalic. EYES: Pupils are equal round regular reactive light accommodation. Extraocular movements are normal. There is no conjunctival pallor. EARS: Tympanic membranes are intact. External auditory canals are clear. NOSE: There is no deviated nasal septum. There is no inflammation of nasal mucous membrane. MOUTH: Mucous membranes of mouth are moist. Tongue is moist. There is no ulcers. THROAT: There is no redness of the oropharynx. There is no exudates. SKIN: There is no skin rashes. There is no skin lesions. There is no petechia or ecchymosis. NECK: Supple. There is mild JVD present. Carotids are equal there is no bruit there is no lymphadenopathy. There is no goiter. There is no accessory muscle respiration use. Trachea is central. LUNGS: He has diminished air entry prolonged expiration on auscultation. There is a few scattered rhonchi. There is no wheezing or rales. On percussion there is hyperresonance. HEART: S1-S2 is heard. There is no S3 gallop. There is no S4 gallop. There is systolic murmur in the left sternal border and the apex there is no rub. ABDOMEN: Is obese. Nontender. There is Dr. splenomegaly. Bowel sounds are well heard. EXTREMITIES: Femorals are diminished. Leg pulses are diminished. There is trace pedal edema bilaterally. There is no DVT cellulitis. There is no calf tenderness. ANUS: The patient's confused and oriented only in person to person. She moves all 4 extremities. PSYCHIATRIC: The patient does not appear to be anxious or agitated. EKG:* SINUS BRADYCARDIA [RAD] . RIGHT AXIS DEVIATION - STMT - * NONSPECIFIC T ABNORMALITIES, ANT-LAT LEADS ESSENTIALLY CHANGED FROM 12/20 Labs- Entire Visit 07/13/19 07/13/19 07/13/19 01:45 01:45 01:45 WBC RBC Hgb Hct MCV MCH MCHC RDW Plt Count Lymph % (Auto) [place] % (Auto) Eos % (Auto) Baso % (Auto) Absolute Neuts (auto) Absolute Lymphs (auto) Absolute Monos (auto) Absolute Eos (auto) Absolute Basos (auto) Seg Neutrophils % PT 14.7 INR 1.14 INR (Anticoag Therapy) APTT Carbonic Acid HCO3/H2CO3 Ratio ABG pH ABG pCO2 ABG pO2 ABG HCO3 ABG Total CO2 ABG O2 Saturation ABG Base Excess VBG pH VBG pCO2 VBG HCO3 VBG Base Excess FiO2 Sodium 134.7 L Potassium 4.7 Chloride 98 Carbon Dioxide 30 Anion Gap 7 BUN 32 H Creatinine 1.28 H Est GFR ( Amer) 49 L Est GFR (MDRD) Non-Af 41 L Glucose 210 H POC Glucose Hemoglobin A1c % Lactic Acid Calcium 7.9 L Magnesium Total Bilirubin 0.3 Direct Bilirubin 0.0 Neonat Total Bilirubin Not Reportable Neonat Direct Bilirubin Not Reportable Neonat Indirect Bili Not Reportable AST 32 ALT 27 Alkaline Phosphatase 86 Creatine Kinase Troponin I 0.071 NT-Pro-B Natriuret Pep Total Protein 6.8 Albumin 3.4 L Triglycerides Cholesterol LDL Cholesterol Direct VLDL Cholesterol HDL Cholesterol TSH Free T4 Urine Color Urine Appearance Urine pH Ur Specific [place] Urine Protein Urine Glucose (UA) Urine Ketones Urine Blood Urine Nitrite (Reflex) Urine Bilirubin Urine Urobilinogen Leukocyte Esterase Rfl Urine RBC (Auto) Urine Bacteria (Auto) Urine WBC (Reflex) Squamous Epi Cells Auto Urine Mucus (Auto) Urine Creatinine Protein/Creatinin Ratio Urine Total Protein Urine Ascorbic Acid Urine Opiates Screen Urine Methadone Screen Ur Barbiturates Screen Ur Phencyclidine Scrn Ur Amphetamines Screen U Benzodiazepines Scrn Urine Cocaine Screen U Marijuana (THC) Screen 07/13/19 07/13/19 07/13/19 01:45 01:45 01:45 WBC 10.8 H RBC 3.75 Hgb 10.1 L Hct 32.6 L MCV 87 MCH 27.0 MCHC 31.0 L RDW 17.7 H Plt Count 197 Lymph % (Auto) 11.7 L [place] % (Auto) 7.9 Eos % (Auto) 1.0 Baso % (Auto) 0.8 Absolute Neuts (auto) 8.5 H Absolute Lymphs (auto) 1.3 Absolute Monos (auto) 0.9 Absolute Eos (auto) 0.1 Absolute Basos (auto) 0.1 Seg Neutrophils % 78.6 H PT INR INR (Anticoag Therapy) APTT Carbonic Acid HCO3/H2CO3 Ratio ABG pH ABG pCO2 ABG pO2 ABG HCO3 ABG Total CO2 ABG O2 Saturation ABG Base Excess VBG pH VBG pCO2 VBG HCO3 VBG Base Excess FiO2 Sodium Potassium Chloride Carbon Dioxide Anion Gap BUN Creatinine Est GFR ( Amer) Est GFR (MDRD) Non-Af Glucose POC Glucose Hemoglobin A1c % Lactic Acid 2.0 Calcium Magnesium Total Bilirubin Direct Bilirubin Neonat Total Bilirubin Neonat Direct Bilirubin Neonat Indirect Bili AST ALT Alkaline Phosphatase Creatine Kinase Troponin I NT-Pro-B Natriuret Pep 7630 H Total Protein Albumin Triglycerides Cholesterol LDL Cholesterol Direct VLDL Cholesterol HDL Cholesterol TSH Free T4 Urine Color Urine Appearance Urine pH Ur Specific [place] Urine Protein Urine Glucose (UA) Urine Ketones Urine Blood Urine Nitrite (Reflex) Urine Bilirubin Urine Urobilinogen Leukocyte Esterase Rfl Urine RBC (Auto) Urine Bacteria (Auto) Urine WBC (Reflex) Squamous Epi Cells Auto Urine Mucus (Auto) Urine Creatinine Protein/Creatinin Ratio Urine Total Protein Urine Ascorbic Acid Urine Opiates Screen Urine Methadone Screen Ur Barbiturates Screen Ur Phencyclidine Scrn Ur Amphetamines Screen U Benzodiazepines Scrn Urine Cocaine Screen U Marijuana (THC) Screen 07/13/19 07/13/19 07/13/19 01:45 01:45 01:45 WBC RBC Hgb Hct MCV MCH MCHC RDW Plt Count Lymph % (Auto) [place] % (Auto) Eos % (Auto) Baso % (Auto) Absolute Neuts (auto) Absolute Lymphs (auto) Absolute Monos (auto) Absolute Eos (auto) Absolute Basos (auto) Seg Neutrophils % PT Cancelled INR Cancelled INR (Anticoag Therapy) Cancelled APTT 27.4 Carbonic Acid HCO3/H2CO3 Ratio ABG pH ABG pCO2 ABG pO2 ABG HCO3 ABG Total CO2 ABG O2 Saturation ABG Base Excess VBG pH VBG pCO2 VBG HCO3 VBG Base Excess FiO2 Sodium Potassium Chloride Carbon Dioxide Anion Gap BUN Creatinine Est GFR ( Amer) Est GFR (MDRD) Non-Af Glucose POC Glucose Hemoglobin A1c % Lactic Acid Calcium Magnesium 2.1 Total Bilirubin Direct Bilirubin Neonat Total Bilirubin Neonat Direct Bilirubin Neonat Indirect Bili AST ALT Alkaline Phosphatase Creatine Kinase Cancelled Troponin I NT-Pro-B Natriuret Pep Total Protein Albumin Triglycerides Cholesterol LDL Cholesterol Direct VLDL Cholesterol HDL Cholesterol TSH 5.79 H Free T4 1.62 Urine Color Urine Appearance Urine pH Ur Specific [place] Urine Protein Urine Glucose (UA) Urine Ketones Urine Blood Urine Nitrite (Reflex) Urine Bilirubin Urine Urobilinogen Leukocyte Esterase Rfl Urine RBC (Auto) Urine Bacteria (Auto) Urine WBC (Reflex) Squamous Epi Cells Auto Urine Mucus (Auto) Urine Creatinine Protein/Creatinin Ratio Urine Total Protein Urine Ascorbic Acid Urine Opiates Screen Urine Methadone Screen Ur Barbiturates Screen Ur Phencyclidine Scrn Ur Amphetamines Screen U Benzodiazepines Scrn Urine Cocaine Screen U Marijuana (THC) Screen 07/13/19 07/13/1907/12/20 03:06 03:30 03:43 WBC RBC Hgb Hct MCV MCH MCHC RDW Plt Count Lymph % (Auto) [place] % (Auto) Eos % (Auto) Baso % (Auto) Absolute Neuts (auto) Absolute Lymphs (auto) Absolute Monos (auto) Absolute Eos (auto) Absolute Basos (auto) Seg Neutrophils % PT INR INR (Anticoag Therapy) APTT Carbonic Acid HCO3/H2CO3 Ratio ABG pH ABG pCO2 ABG pO2 ABG HCO3 ABG Total CO2 ABG O2 Saturation ABG Base Excess VBG pH 7.23 L VBG pCO2 76.8 H* VBG HCO3 31.2 VBG Base Excess 2.0 FiO2 Sodium Potassium Chloride Carbon Dioxide Anion Gap BUN Creatinine Est GFR ( Amer) Est GFR (MDRD) Non-Af Glucose POC Glucose 183 H Hemoglobin A1c % Lactic Acid Calcium Magnesium Total Bilirubin Direct Bilirubin Neonat Total Bilirubin Neonat Direct Bilirubin Neonat Indirect Bili AST ALT Alkaline Phosphatase Creatine Kinase Troponin I NT-Pro-B Natriuret Pep Total Protein Albumin Triglycerides Cholesterol LDL Cholesterol Direct VLDL Cholesterol HDL Cholesterol TSH Free T4 Urine Color YELLOW Urine Appearance CLOUDY Urine pH 5.0 Ur Specific [place] 1.016 Urine Protein >=500 H Urine Glucose (UA) NEGATIVE Urine Ketones NEGATIVE Urine Blood LARGE H Urine Nitrite (Reflex) NEGATIVE Urine Bilirubin NEGATIVE Urine Urobilinogen NEGATIVE Leukocyte Esterase Rfl LARGE H Urine RBC (Auto) 5 Urine Bacteria (Auto) 3+ Urine WBC (Reflex) > 182 Squamous Epi Cells Auto 4 Urine Mucus (Auto) OCC Urine Creatinine Protein/Creatinin Ratio Urine Total Protein Urine Ascorbic Acid NEGATIVE Urine Opiates Screen Urine Methadone Screen Ur Barbiturates Screen Ur Phencyclidine Scrn Ur Amphetamines Screen U Benzodiazepines Scrn Urine Cocaine Screen U Marijuana (THC) Screen 07/13/19 07/13/19 07/13/19 06:20 06:20 06:20 WBC RBC Hgb Hct MCV MCH MCHC RDW Plt Count Lymph % (Auto) [place] % (Auto) Eos % (Auto) Baso % (Auto) Absolute Neuts (auto) Absolute Lymphs (auto) Absolute Monos (auto) Absolute Eos (auto) Absolute Basos (auto) Seg Neutrophils % PT INR INR (Anticoag Therapy) APTT Carbonic Acid HCO3/H2CO3 Ratio ABG pH ABG pCO2 ABG pO2 ABG HCO3 ABG Total CO2 ABG O2 Saturation ABG Base Excess VBG pH VBG pCO2 VBG HCO3 VBG Base Excess FiO2 Sodium Potassium Chloride Carbon Dioxide Anion Gap BUN Creatinine Est GFR ( Amer) Est GFR (MDRD) Non-Af Glucose POC Glucose Hemoglobin A1c % Lactic Acid 0.8 Calcium Magnesium Total Bilirubin Direct Bilirubin Neonat Total Bilirubin Neonat Direct Bilirubin Neonat Indirect Bili AST ALT Alkaline Phosphatase Creatine Kinase 670 H Troponin I 0.099 NT-Pro-B Natriuret Pep Total Protein Albumin Triglycerides Cholesterol LDL Cholesterol Direct VLDL Cholesterol HDL Cholesterol TSH Free T4 Urine Color Urine Appearance Urine pH Ur Specific [place] Urine Protein Urine Glucose (UA) Urine Ketones Urine Blood Urine Nitrite (Reflex) Urine Bilirubin Urine Urobilinogen Leukocyte Esterase Rfl Urine RBC (Auto) Urine Bacteria (Auto) Urine WBC (Reflex) Squamous Epi Cells Auto Urine Mucus (Auto) Urine Creatinine Protein/Creatinin Ratio Urine Total Protein Urine Ascorbic Acid Urine Opiates Screen Urine Methadone Screen Ur Barbiturates Screen Ur Phencyclidine Scrn Ur Amphetamines Screen U Benzodiazepines Scrn Urine Cocaine Screen U Marijuana (THC) Screen 07/13/19 07/13/19 07/13/19 10:05 10:05 10:05 WBC RBC Hgb Hct MCV MCH MCHC RDW Plt Count Lymph % (Auto) [place] % (Auto) Eos % (Auto) Baso % (Auto) Absolute Neuts (auto) Absolute Lymphs (auto) Absolute Monos (auto) Absolute Eos (auto) Absolute Basos (auto) Seg Neutrophils % PT INR INR (Anticoag Therapy) APTT Carbonic Acid HCO3/H2CO3 Ratio ABG pH ABG pCO2 ABG pO2 ABG HCO3 ABG Total CO2 ABG O2 Saturation ABG Base Excess VBG pH VBG pCO2 VBG HCO3 VBG Base Excess FiO2 Sodium Potassium Chloride Carbon Dioxide Anion Gap BUN Creatinine Est GFR ( Amer) Est GFR (MDRD) Non-Af Glucose POC Glucose Hemoglobin A1c % Lactic Acid 0.7 Calcium Magnesium Total Bilirubin Direct Bilirubin Neonat Total Bilirubin Neonat Direct Bilirubin Neonat Indirect Bili AST ALT Alkaline Phosphatase Creatine Kinase 572 H Troponin I 0.082 NT-Pro-B Natriuret Pep Total Protein Albumin Triglycerides Cholesterol LDL Cholesterol Direct VLDL Cholesterol HDL Cholesterol TSH Free T4 Urine Color Urine Appearance Urine pH Ur Specific [place] Urine Protein Urine Glucose (UA) Urine Ketones Urine Blood Urine Nitrite (Reflex) Urine Bilirubin Urine Urobilinogen Leukocyte Esterase Rfl Urine RBC (Auto) Urine Bacteria (Auto) Urine WBC (Reflex) Squamous Epi Cells Auto Urine Mucus (Auto) Urine Creatinine Protein/Creatinin Ratio Urine Total Protein Urine Ascorbic Acid Urine Opiates Screen Urine Methadone Screen Ur Barbiturates Screen Ur Phencyclidine Scrn Ur Amphetamines Screen U Benzodiazepines Scrn Urine Cocaine Screen U Marijuana (THC) Screen 07/13/19 07/13/19 07/13/19 11:00 16:50 16:50 WBC RBC Hgb Hct MCV MCH MCHC RDW Plt Count Lymph % (Auto) [place] % (Auto) Eos % (Auto) Baso % (Auto) Absolute Neuts (auto) Absolute Lymphs (auto) Absolute Monos (auto) Absolute Eos (auto) Absolute Basos (auto) Seg Neutrophils % PT INR INR (Anticoag Therapy) APTT Carbonic Acid 2.67 H HCO3/H2CO3 Ratio 13:1 ABG pH 7.23 L ABG pCO2 88.6 H* ABG pO2 84.7 ABG HCO3 36.0 H ABG Total CO2 38.7 H ABG O2 Saturation 93.8 L ABG Base Excess 6.0 VBG pH VBG pCO2 VBG HCO3 VBG Base Excess FiO2 8L Sodium Potassium Chloride Carbon Dioxide Anion Gap BUN Creatinine Est GFR ( Amer) Est GFR (MDRD) Non-Af Glucose POC Glucose Hemoglobin A1c % Lactic Acid Calcium Magnesium Total Bilirubin Direct Bilirubin Neonat Total Bilirubin Neonat Direct Bilirubin Neonat Indirect Bili AST ALT Alkaline Phosphatase Creatine Kinase 429 H Troponin I 0.059 NT-Pro-B Natriuret Pep Total Protein Albumin Triglycerides Cholesterol LDL Cholesterol Direct VLDL Cholesterol HDL Cholesterol TSH Free T4 Urine Color Urine Appearance Urine pH Ur Specific [place] Urine Protein Urine Glucose (UA) Urine Ketones Urine Blood Urine Nitrite (Reflex) Urine Bilirubin Urine Urobilinogen Leukocyte Esterase Rfl Urine RBC (Auto) Urine Bacteria (Auto) Urine WBC (Reflex) Squamous Epi Cells Auto Urine Mucus (Auto) Urine Creatinine Protein/Creatinin Ratio Urine Total Protein Urine Ascorbic Acid Urine Opiates Screen Urine Methadone Screen Ur Barbiturates Screen Ur Phencyclidine Scrn Ur Amphetamines Screen U Benzodiazepines Scrn Urine Cocaine Screen U Marijuana (THC) Screen 07/14/19 07/14/19 07/14/19 04:36 04:36 04:36 WBC 7.7 RBC 3.82 Hgb 10.3 L Hct 32.7 L MCV 86 MCH 27.0 MCHC 31.5 L RDW 17.5 H Plt Count 160 Lymph % (Auto) 13.9 [place] % (Auto) 8.8 Eos % (Auto) 2.9 Baso % (Auto) 0.7 Absolute Neuts (auto) 5.7 Absolute Lymphs (auto) 1.1 Absolute Monos (auto) 0.7 Absolute Eos (auto) 0.2 Absolute Basos (auto) 0.0 Seg Neutrophils % 73.7 PT INR INR (Anticoag Therapy) APTT Carbonic Acid HCO3/H2CO3 Ratio ABG pH ABG pCO2 ABG pO2 ABG HCO3 ABG Total CO2 ABG O2 Saturation ABG Base Excess VBG pH VBG pCO2 VBG HCO3 VBG Base Excess FiO2 Sodium Potassium Chloride Carbon Dioxide Anion Gap BUN Creatinine Est GFR ( Amer) Est GFR (MDRD) Non-Af Glucose POC Glucose Hemoglobin A1c % 6.6 H Lactic Acid Calcium Magnesium Total Bilirubin 0.4 Direct Bilirubin 0.0 Neonat Total Bilirubin Not Reportable Neonat Direct Bilirubin Not Reportable Neonat Indirect Bili Not Reportable AST 36 ALT 23 Alkaline Phosphatase 77 Creatine Kinase Troponin I NT-Pro-B Natriuret Pep Total Protein 6.5 Albumin 3.3 L Triglycerides 100 Cholesterol 106.59 LDL Cholesterol Direct 65 VLDL Cholesterol 20.0 HDL Cholesterol 32 L TSH Free T4 Urine Color Urine Appearance Urine pH Ur Specific [place] Urine Protein Urine Glucose (UA) Urine Ketones Urine Blood Urine Nitrite (Reflex) Urine Bilirubin Urine Urobilinogen Leukocyte Esterase Rfl Urine RBC (Auto) Urine Bacteria (Auto) Urine WBC (Reflex) Squamous Epi Cells Auto Urine Mucus (Auto) Urine Creatinine Protein/Creatinin Ratio Urine Total Protein Urine Ascorbic Acid Urine Opiates Screen Urine Methadone Screen Ur Barbiturates Screen Ur Phencyclidine Scrn Ur Amphetamines Screen U Benzodiazepines Scrn Urine Cocaine Screen U Marijuana (THC) Screen 07/14/19 07/14/19 07/14/19 04:36 18:04 22:29 WBC RBC Hgb Hct MCV MCH MCHC RDW Plt Count Lymph % (Auto) [place] % (Auto) Eos % (Auto) Baso % (Auto) Absolute Neuts (auto) Absolute Lymphs (auto) Absolute Monos (auto) Absolute Eos (auto) Absolute Basos (auto) Seg Neutrophils % PT INR INR (Anticoag Therapy) APTT Carbonic Acid HCO3/H2CO3 Ratio ABG pH ABG pCO2 ABG pO2 ABG HCO3 ABG Total CO2 ABG O2 Saturation ABG Base Excess VBG pH VBG pCO2 VBG HCO3 VBG Base Excess FiO2 Sodium 134.1 L Potassium 4.7 Chloride 89 L Carbon Dioxide 40 H* Anion Gap 5 BUN 29 H Creatinine 1.45 H Est GFR ( Amer) 43 L Est GFR (MDRD) Non-Af 35 L Glucose 177 H POC Glucose 163 H Hemoglobin A1c % Lactic Acid Calcium 8.1 L Magnesium Total Bilirubin 0.4 Direct Bilirubin 0.0 Neonat Total Bilirubin Not Reportable Neonat Direct Bilirubin Not Reportable Neonat Indirect Bili Not Reportable AST 32 ALT 21 Alkaline Phosphatase 75 Creatine Kinase Troponin I NT-Pro-B Natriuret Pep 5290 H Total Protein 6.5 Albumin 3.1 L Triglycerides Cholesterol LDL Cholesterol Direct VLDL Cholesterol HDL Cholesterol TSH Free T4 Urine Color Urine Appearance Urine pH Ur Specific [place] Urine Protein Urine Glucose (UA) Urine Ketones Urine Blood Urine Nitrite (Reflex) Urine Bilirubin Urine Urobilinogen Leukocyte Esterase Rfl Urine RBC (Auto) Urine Bacteria (Auto) Urine WBC (Reflex) Squamous Epi Cells Auto Urine Mucus (Auto) Urine Creatinine Protein/Creatinin Ratio Urine Total Protein Urine Ascorbic Acid Urine Opiates Screen Urine Methadone Screen Ur Barbiturates Screen Ur Phencyclidine Scrn Ur Amphetamines Screen U Benzodiazepines Scrn Urine Cocaine Screen U Marijuana (THC) Screen 07/15/19 07/15/19 07/15/19 05:00 05:00 07:26 WBC 8.1 RBC 3.76 Hgb 10.3 L Hct 31.7 L MCV 84 MCH 27.3 MCHC 32.4 RDW 17.6 H Plt Count 158 Lymph % (Auto) 12.8 L [place] % (Auto) 9.5 Eos % (Auto) 2.8 Baso % (Auto) 0.5 Absolute Neuts (auto) 6.0 Absolute Lymphs (auto) 1.0 Absolute Monos (auto) 0.8 Absolute Eos (auto) 0.2 Absolute Basos (auto) 0.0 Seg Neutrophils % 74.4 PT INR INR (Anticoag Therapy) APTT Carbonic Acid HCO3/H2CO3 Ratio ABG pH ABG pCO2 ABG pO2 ABG HCO3 ABG Total CO2 ABG O2 Saturation ABG Base Excess VBG pH VBG pCO2 VBG HCO3 VBG Base Excess FiO2 Sodium 135.8 L Potassium 4.6 Chloride 91 L Carbon Dioxide 43 H* Anion Gap 2 L BUN 23 H Creatinine 1.18 Est GFR ( Amer) 54 L Est GFR (MDRD) Non-Af 45 L Glucose 154 H POC Glucose 154 H Hemoglobin A1c % Lactic Acid Calcium 8.4 Magnesium Total Bilirubin Direct Bilirubin Neonat Total Bilirubin Neonat Direct Bilirubin Neonat Indirect Bili AST ALT Alkaline Phosphatase Creatine Kinase Troponin I NT-Pro-B Natriuret Pep Total Protein Albumin Triglycerides Cholesterol LDL Cholesterol Direct VLDL Cholesterol HDL Cholesterol TSH Free T4 Urine Color Urine Appearance Urine pH Ur Specific [place] Urine Protein Urine Glucose (UA) Urine Ketones Urine Blood Urine Nitrite (Reflex) Urine Bilirubin Urine Urobilinogen Leukocyte Esterase Rfl Urine RBC (Auto) Urine Bacteria (Auto) Urine WBC (Reflex) Squamous Epi Cells Auto Urine Mucus (Auto) Urine Creatinine Protein/Creatinin Ratio Urine Total Protein Urine Ascorbic Acid Urine Opiates Screen Urine Methadone Screen Ur Barbiturates Screen Ur Phencyclidine Scrn Ur Amphetamines Screen U Benzodiazepines Scrn Urine Cocaine Screen U Marijuana (THC) Screen 07/15/19 07/15/19 07/15/19 12:00 16:41 21:07 WBC RBC Hgb Hct MCV MCH MCHC RDW Plt Count Lymph % (Auto) [place] % (Auto) Eos % (Auto) Baso % (Auto) Absolute Neuts (auto) Absolute Lymphs (auto) Absolute Monos (auto) Absolute Eos (auto) Absolute Basos (auto) Seg Neutrophils % PT INR INR (Anticoag Therapy) APTT Carbonic Acid HCO3/H2CO3 Ratio ABG pH ABG pCO2 ABG pO2 ABG HCO3 ABG Total CO2 ABG O2 Saturation ABG Base Excess VBG pH VBG pCO2 VBG HCO3 VBG Base Excess FiO2 Sodium Potassium Chloride Carbon Dioxide Anion Gap BUN Creatinine Est GFR ( Amer) Est GFR (MDRD) Non-Af Glucose POC Glucose 188 H 157 H 132 H Hemoglobin A1c % Lactic Acid Calcium Magnesium Total Bilirubin Direct Bilirubin Neonat Total Bilirubin Neonat Direct Bilirubin Neonat Indirect Bili AST ALT Alkaline Phosphatase Creatine Kinase Troponin I NT-Pro-B Natriuret Pep Total Protein Albumin Triglycerides Cholesterol LDL Cholesterol Direct VLDL Cholesterol HDL Cholesterol TSH Free T4 Urine Color Urine Appearance Urine pH Ur Specific [place] Urine Protein Urine Glucose (UA) Urine Ketones Urine Blood Urine Nitrite (Reflex) Urine Bilirubin Urine Urobilinogen Leukocyte Esterase Rfl Urine RBC (Auto) Urine Bacteria (Auto) Urine WBC (Reflex) Squamous Epi Cells Auto Urine Mucus (Auto) Urine Creatinine Protein/Creatinin Ratio Urine Total Protein Urine Ascorbic Acid Urine Opiates Screen Urine Methadone Screen Ur Barbiturates Screen Ur Phencyclidine Scrn Ur Amphetamines Screen U Benzodiazepines Scrn Urine Cocaine Screen U Marijuana (THC) Screen 07/16/19 07/16/19 07/16/19 04:00 04:00 04:04 WBC RBC Hgb Hct MCV MCH MCHC RDW Plt Count Lymph % (Auto) [place] % (Auto) Eos % (Auto) Baso % (Auto) Absolute Neuts (auto) Absolute Lymphs (auto) Absolute Monos (auto) Absolute Eos (auto) Absolute Basos (auto) Seg Neutrophils % PT INR INR (Anticoag Therapy) APTT Carbonic Acid HCO3/H2CO3 Ratio ABG pH ABG pCO2 ABG pO2 ABG HCO3 ABG Total CO2 ABG O2 Saturation ABG Base Excess VBG pH VBG pCO2 VBG HCO3 VBG Base Excess FiO2 Sodium Potassium Chloride Carbon Dioxide Anion Gap BUN Creatinine Est GFR ( Amer) Est GFR (MDRD) Non-Af Glucose POC Glucose 45 L Hemoglobin A1c % Lactic Acid Calcium Magnesium Total Bilirubin Direct Bilirubin Neonat Total Bilirubin Neonat Direct Bilirubin Neonat Indirect Bili AST ALT Alkaline Phosphatase Creatine Kinase Troponin I NT-Pro-B Natriuret Pep Total Protein Albumin Triglycerides Cholesterol LDL Cholesterol Direct VLDL Cholesterol HDL Cholesterol TSH Free T4 Urine Color Urine Appearance Urine pH Ur Specific [place] Urine Protein Urine Glucose (UA) Urine Ketones Urine Blood Urine Nitrite (Reflex) Urine Bilirubin Urine Urobilinogen Leukocyte Esterase Rfl Urine RBC (Auto) Urine Bacteria (Auto) Urine WBC (Reflex) Squamous Epi Cells Auto Urine Mucus (Auto) Urine Creatinine 65.2 Protein/Creatinin Ratio 3.7 H Urine Total Protein 244.0 H Urine Ascorbic Acid Urine Opiates Screen NEGATIVE Urine Methadone Screen NEGATIVE Ur Barbiturates Screen NEGATIVE Ur Phencyclidine Scrn NEGATIVE Ur Amphetamines Screen NEGATIVE U Benzodiazepines Scrn NEGATIVE Urine Cocaine Screen NEGATIVE U Marijuana (THC) Screen NEGATIVE 07/16/19 07/16/19 07/16/19 04:41 07:42 09:47 WBC 7.8 RBC 3.60 L Hgb 9.8 L Hct 30.5 L MCV 85 MCH 27.2 MCHC 32.0 RDW 17.3 H Plt Count 160 Lymph % (Auto) 11.4 L [place] % (Auto) 8.8 Eos % (Auto) 1.0 Baso % (Auto) 0.5 Absolute Neuts (auto) 6.1 Absolute Lymphs (auto) 0.9 Absolute Monos (auto) 0.7 Absolute Eos (auto) 0.1 Absolute Basos (auto) 0.0 Seg Neutrophils % 78.3 H PT INR INR (Anticoag Therapy) APTT Carbonic Acid HCO3/H2CO3 Ratio ABG pH ABG pCO2 ABG pO2 ABG HCO3 ABG Total CO2 ABG O2 Saturation ABG Base Excess VBG pH VBG pCO2 VBG HCO3 VBG Base Excess FiO2 Sodium Potassium Chloride Carbon Dioxide Anion Gap BUN Creatinine Est GFR ( Amer) Est GFR (MDRD) Non-Af Glucose POC Glucose 252 H 92 Hemoglobin A1c % Lactic Acid Calcium Magnesium Total Bilirubin Direct Bilirubin Neonat Total Bilirubin Neonat Direct Bilirubin Neonat Indirect Bili AST ALT Alkaline Phosphatase Creatine Kinase Troponin I NT-Pro-B Natriuret Pep Total Protein Albumin Triglycerides Cholesterol LDL Cholesterol Direct VLDL Cholesterol HDL Cholesterol TSH Free T4 Urine Color Urine Appearance Urine pH Ur Specific [place] Urine Protein Urine Glucose (UA) Urine Ketones Urine Blood Urine Nitrite (Reflex) Urine Bilirubin Urine Urobilinogen Leukocyte Esterase Rfl Urine RBC (Auto) Urine Bacteria (Auto) Urine WBC (Reflex) Squamous Epi Cells Auto Urine Mucus (Auto) Urine Creatinine Protein/Creatinin Ratio Urine Total Protein Urine Ascorbic Acid Urine Opiates Screen Urine Methadone Screen Ur Barbiturates Screen Ur Phencyclidine Scrn Ur Amphetamines Screen U Benzodiazepines Scrn Urine Cocaine Screen U Marijuana (THC) Screen 07/16/19 07/16/19 07/16/19 09:47 12:34 16:11 WBC RBC Hgb Hct MCV MCH MCHC RDW Plt Count Lymph % (Auto) [place] % (Auto) Eos % (Auto) Baso % (Auto) Absolute Neuts (auto) Absolute Lymphs (auto) Absolute Monos (auto) Absolute Eos (auto) Absolute Basos (auto) Seg Neutrophils % PT INR INR (Anticoag Therapy) APTT Carbonic Acid HCO3/H2CO3 Ratio ABG pH ABG pCO2 ABG pO2 ABG HCO3 ABG Total CO2 ABG O2 Saturation ABG Base Excess VBG pH VBG pCO2 VBG HCO3 VBG Base Excess FiO2 Sodium 134.6 L Potassium 4.5 Chloride 89 L Carbon Dioxide 44 H* Anion Gap 2 L BUN 20 Creatinine 0.93 Est GFR ( Amer) > 60 Est GFR (MDRD) Non-Af 59 L Glucose 113 H POC Glucose 141 H 99 Hemoglobin A1c % Lactic Acid Calcium 7.7 L Magnesium Total Bilirubin 0.4 Direct Bilirubin 0.0 Neonat Total Bilirubin Not Reportable Neonat Direct Bilirubin Not Reportable Neonat Indirect Bili Not Reportable AST 20 ALT 15 Alkaline Phosphatase 64 Creatine Kinase Troponin I NT-Pro-B Natriuret Pep Total Protein 5.7 L Albumin 3.0 L Triglycerides Cholesterol LDL Cholesterol Direct VLDL Cholesterol HDL Cholesterol TSH Free T4 Urine Color Urine Appearance Urine pH Ur Specific [place] Urine Protein Urine Glucose (UA) Urine Ketones Urine Blood Urine Nitrite (Reflex) Urine Bilirubin Urine Urobilinogen Leukocyte Esterase Rfl Urine RBC (Auto) Urine Bacteria (Auto) Urine WBC (Reflex) Squamous Epi Cells Auto Urine Mucus (Auto) Urine Creatinine Protein/Creatinin Ratio Urine Total Protein Urine Ascorbic Acid Urine Opiates Screen Urine Methadone Screen Ur Barbiturates Screen Ur Phencyclidine Scrn Ur Amphetamines Screen U Benzodiazepines Scrn Urine Cocaine Screen U Marijuana (THC) Screen 07/16/19 07/17/19 07/17/19 21:41 07:56 12:54 WBC RBC Hgb Hct MCV MCH MCHC RDW Plt Count Lymph % (Auto) [place] % (Auto) Eos % (Auto) Baso % (Auto) Absolute Neuts (auto) Absolute Lymphs (auto) Absolute Monos (auto) Absolute Eos (auto) Absolute Basos (auto) Seg Neutrophils % PT INR INR (Anticoag Therapy) APTT Carbonic Acid HCO3/H2CO3 Ratio ABG pH ABG pCO2 ABG pO2 ABG HCO3 ABG Total CO2 ABG O2 Saturation ABG Base Excess VBG pH VBG pCO2 VBG HCO3 VBG Base Excess FiO2 Sodium Potassium Chloride Carbon Dioxide Anion Gap BUN Creatinine Est GFR ( Amer) Est GFR (MDRD) Non-Af Glucose POC Glucose 139 H 119 H 108 Hemoglobin A1c % Lactic Acid Calcium Magnesium Total Bilirubin Direct Bilirubin Neonat Total Bilirubin Neonat Direct Bilirubin Neonat Indirect Bili AST ALT Alkaline Phosphatase Creatine Kinase Troponin I NT-Pro-B Natriuret Pep Total Protein Albumin Triglycerides Cholesterol LDL Cholesterol Direct VLDL Cholesterol HDL Cholesterol TSH Free T4 Urine Color Urine Appearance Urine pH Ur Specific [place] Urine Protein Urine Glucose (UA) Urine Ketones Urine Blood Urine Nitrite (Reflex) Urine Bilirubin Urine Urobilinogen Leukocyte Esterase Rfl Urine RBC (Auto) Urine Bacteria (Auto) Urine WBC (Reflex) Squamous Epi Cells Auto Urine Mucus (Auto) Urine Creatinine Protein/Creatinin Ratio Urine Total Protein Urine Ascorbic Acid Urine Opiates Screen Urine Methadone Screen Ur Barbiturates Screen Ur Phencyclidine Scrn Ur Amphetamines Screen U Benzodiazepines Scrn Urine Cocaine Screen U Marijuana (THC) Screen 07/17/19 07/17/19 07/18/19 17:30 22:14 07:11 WBC RBC Hgb Hct MCV MCH MCHC RDW Plt Count Lymph % (Auto) [place] % (Auto) Eos % (Auto) Baso % (Auto) Absolute Neuts (auto) Absolute Lymphs (auto) Absolute Monos (auto) Absolute Eos (auto) Absolute Basos (auto) Seg Neutrophils % PT INR INR (Anticoag Therapy) APTT Carbonic Acid HCO3/H2CO3 Ratio ABG pH ABG pCO2 ABG pO2 ABG HCO3 ABG Total CO2 ABG O2 Saturation ABG Base Excess VBG pH VBG pCO2 VBG HCO3 VBG Base Excess FiO2 Sodium Potassium Chloride Carbon Dioxide Anion Gap BUN Creatinine Est GFR ( Amer) Est GFR (MDRD) Non-Af Glucose POC Glucose 135 H 150 H 137 H Hemoglobin A1c % Lactic Acid Calcium Magnesium Total Bilirubin Direct Bilirubin Neonat Total Bilirubin Neonat Direct Bilirubin Neonat Indirect Bili AST ALT Alkaline Phosphatase Creatine Kinase Troponin I NT-Pro-B Natriuret Pep Total Protein Albumin Triglycerides Cholesterol LDL Cholesterol Direct VLDL Cholesterol HDL Cholesterol TSH Free T4 Urine Color Urine Appearance Urine pH Ur Specific [place] Urine Protein Urine Glucose (UA) Urine Ketones Urine Blood Urine Nitrite (Reflex) Urine Bilirubin Urine Urobilinogen Leukocyte Esterase Rfl Urine RBC (Auto) Urine Bacteria (Auto) Urine WBC (Reflex) Squamous Epi Cells Auto Urine Mucus (Auto) Urine Creatinine Protein/Creatinin Ratio Urine Total Protein Urine Ascorbic Acid Urine Opiates Screen Urine Methadone Screen Ur Barbiturates Screen Ur Phencyclidine Scrn Ur Amphetamines Screen U Benzodiazepines Scrn Urine Cocaine Screen U Marijuana (THC) Screen 07/18/19 07/18/19 11:16 20:54 WBC RBC Hgb Hct MCV MCH MCHC RDW Plt Count Lymph % (Auto) [place] % (Auto) Eos % (Auto) Baso % (Auto) Absolute Neuts (auto) Absolute Lymphs (auto) Absolute Monos (auto) Absolute Eos (auto) Absolute Basos (auto) Seg Neutrophils % PT INR INR (Anticoag Therapy) APTT Carbonic Acid HCO3/H2CO3 Ratio ABG pH ABG pCO2 ABG pO2 ABG HCO3 ABG Total CO2 ABG O2 Saturation ABG Base Excess VBG pH VBG pCO2 VBG HCO3 VBG Base Excess FiO2 Sodium Potassium Chloride Carbon Dioxide Anion Gap BUN Creatinine Est GFR ( Amer) Est GFR (MDRD) Non-Af Glucose POC Glucose 138 H 142 H Hemoglobin A1c % Lactic Acid Calcium Magnesium Total Bilirubin Direct Bilirubin Neonat Total Bilirubin Neonat Direct Bilirubin Neonat Indirect Bili AST ALT Alkaline Phosphatase Creatine Kinase Troponin I NT-Pro-B Natriuret Pep Total Protein Albumin Triglycerides Cholesterol LDL Cholesterol Direct VLDL Cholesterol HDL Cholesterol TSH Free T4 Urine Color Urine Appearance Urine pH Ur Specific [place] Urine Protein Urine Glucose (UA) Urine Ketones Urine Blood Urine Nitrite (Reflex) Urine Bilirubin Urine Urobilinogen Leukocyte Esterase Rfl Urine RBC (Auto) Urine Bacteria (Auto) Urine WBC (Reflex) Squamous Epi Cells Auto Urine Mucus (Auto) Urine Creatinine Protein/Creatinin Ratio Urine Total Protein Urine Ascorbic Acid Urine Opiates Screen Urine Methadone Screen Ur Barbiturates Screen Ur Phencyclidine Scrn Ur Amphetamines Screen U Benzodiazepines Scrn Urine Cocaine Screen U Marijuana (THC) Screen Head CT 07/13/19 02:23 IMPRESSION: No acute intracranial findings. Chest X-Ray 07/13/19 02:24 IMPRESSION: Slightly worsening aeration of the lungs. ECHOCARDIOGRAM: Shows normal ventricular chamber size wall motion and ejection fraction. Normal diastolic function of the left ventricle. There seems to be severe pulmonary hypertension with the second interpretation which is limited to only the interrogation of the TR jet showing a right middle systolic pressure of 74 mmHg. Please see report report interpreted by me. IMPRESSION/RECOMMENDATION: 1. Acute on probably chronic systolic rate regular heart failure.] Right ventricular systolic heart failure.] This is secondary to severe pulmonary hypertension. Recommend adding an ARB and amlodipine. Would stop the IV Lasix drip and convert to p.o. Lasix. 2. Severe pulmonary hypertension: As mentioned earlier would recommend starting the patient on amlodipine and ARB. Severe pulmonary hypertension most likely secondary to the patient's COPD. Would recommend any outpatient sleep study to make sure the patient has a sleep study. Doubt that the patient will cooperate for this. 3. Acute renal failure: Renal function improving. 4. Acute exacerbation COPD: Continue current treatment. Seems to be almost resolved and patient back to baseline. 5. Diabetes mellitus: Continue antidiabetic treatment. Accu-Cheks as per protocol. 6. Hypothyroidism: TSH mildly elevated. Continue thyroid replacement. Probably the patient is noncompliant with the medication. 7. Mild aortic stenosis. 8. Severe dementia. Medications reviewed. Medical regimen and management plan discussed with attending provider. Medical decision making is of high complexity. This is in view of the need to start multiple medications. Also medications adjusted. 60- minute spent on this patient with more than 50% time spent in direct patient care. Will follow..
[2019-07-18] MEDS: INSULIN GLARGINE,HUM.REC.ANLOG 1,000 UNIT/10 ML VIAL SUBCUT SCH (21:02)
--- NOTE | 2019-07-18 23:05 | PDOC PROGRESS REPORT ---
Subjective Progress Note for:: 07/18/19 Subjective:: Patient seen by the bedside, she Will require hospital bed on discharge, because of very severe COPD, severe osteoarthritis affecting multiple joints, she will need the need to adjust the head of the bed frequent position changing for alleviation of pain and also to aid with breathing comfortably, to prevent aspiration. Consultation is requested from discharge planners to arrange hospital bed and a wheelchair for this patient on discharge Reason For Visit: HEART FAILURE Physical Exam Vital Signs: Temp Pulse Resp BP Pulse Ox 98.6 F 71 16 138/53 H 95 07/18/19 15:14 07/18/19 19:51 07/18/19 19:51 07/18/19 15:14 07/18/19 19:51 Intake & Output 07/17/19 07/18/19 07/19/19 06:59 06:59 06:59 Intake Total 2910 1776 960 Output Total 2623 9925 1702 Balance 379 -6602 -013 Weight 80.6 kg 80 kg General appearance: PRESENT: no acute distress Eye exam: PRESENT: PERRLA Respiratory exam: PRESENT: clear to auscultation oh Cardiovascular exam: PRESENT: +S1, +S2 GI/Abdominal exam: PRESENT: soft Neurological exam: PRESENT: alert Results Laboratory Results: 07/16/19 09:47 07/16/19 09:47 07/13/19 03:30 Blood Blood Culture - Final NO GROWTH IN 5 DAYS 07/13/19 01:45 Blood Blood Culture - Final NO GROWTH IN 5 DAYS 07/13/19 07/13/19 07/13/19 01:45 01:45 01:45 Creatine Kinase Cancelled Troponin I 0.071 NT-Pro-B Natriuret Pep 7630 H 07/13/19 07/13/19 07/13/19 06:20 06:20 10:05 Creatine Kinase 670 H 572 H Troponin I 0.099 NT-Pro-B Natriuret Pep 07/13/19 07/13/19 07/13/19 10:05 16:50 16:50 Creatine Kinase 429 H Troponin I 0.082 0.059 NT-Pro-B Natriuret Pep 07/14/19 04:36 Creatine Kinase Troponin I NT-Pro-B Natriuret Pep 5290 H Impressions: Head CT 07/13/19 02:23 IMPRESSION: No acute intracranial findings. Chest X-Ray 07/13/19 02:24 IMPRESSION: Slightly worsening aeration of the lungs. Assessment & Plan - Diagnosis (1) Acute hypercapnic respiratory failure Is this a current diagnosis for this admission?: Yes Plan: Patient no longer requiring BiPAP on oxygen nasal cannula 2 L (2) Acute diastolic heart failure Is this a current diagnosis for this admission?: Yes (3) Dementia Qualifiers: Dementia type: unspecified type Dementia behavioral disturbance: without behavioral disturbance Qualified Code(s): F03.90 - Unspecified dementia without behavioral disturbance Is this a current diagnosis for this admission?: Yes (4) Type 2 diabetes mellitus Qualifiers: Diabetes mellitus intermodal dispatcher insulin use: without halfway use Diabetes mellitus complication status: with neurologic complications Diabetes mellitus complication detail: with polyneuropathy Qualified Code(s): E11.42 - Type 2 diabetes mellitus with diabetic polyneuropathy Is this a current diagnosis for this admission?: Yes (5) Hypothyroidism (acquired) Is this a current diagnosis for this admission?: Yes (6) Pulmonary hypertension Is this a current diagnosis for this admission?: Yes - Time Time Spent with patient: 25-34 minutes Level of Care: IMCU Medications reviewed and adjusted accordingly: Yes
[2019-07-19] MEDS: IPRATROPIUM/ALBUTEROL 0.5-2.5 MG/3 ML AMPUL NEB SCH ×4 (02:14→19:56)
[2019-07-19] MEDS: HEPARIN SOD (PORCINE) 5,000 UNIT/ML 1 ML VIAL SUBCUT SCH ×3 (05:24→21:35)
[2019-07-19] MEDS: LEVOTHYROXINE SODIUM 0.1 MG TABLET PO SCH (05:25)
[2019-07-19] MEDS: LEVOTHYROXINE SODIUM 0.15 MG TABLET PO SCH (05:25)
[2019-07-19] MEDS: LOSARTAN POTASSIUM 25 MG TABLET PO SCH (09:40)
[2019-07-19] MEDS: BUSPIRONE HCL 10 MG TABLET PO SCH ×2 (09:40→21:36)
[2019-07-19] MEDS: DULOXETINE HCL 30 MG CAPSULE.DR PO SCH (09:40)
[2019-07-19] MEDS: SITAGLIPTIN PHOSPHATE 50 MG TABLET PO SCH (09:40)
[2019-07-19] MEDS: AMLODIPINE BESYLATE 2.5 MG TABLET PO SCH ×2 (09:40→21:36)
[2019-07-19] MEDS: FLUTICASONE/UMECLIDIN/VILANTER 100-62.5-25 MCG/DOSE IH SCH (09:41)
--- NOTE | 2019-07-19 16:12 | PDOC PROGRESS REPORT ---
Subjective Progress Note for:: 07/19/19 Subjective:: Patient reported improvement in her breathing and leg swelling. No chest pain. No fever or chills. No nausea, vomiting or abdominal pain. Reason For Visit: HEART FAILURE Physical Exam Vital Signs: Temp Pulse Resp BP Pulse Ox 99.1 F 63 18 140/57 H 95 07/19/19 12:23 07/19/19 14:00 07/19/19 13:59 07/19/19 12:23 07/19/19 13:59 Intake & Output 07/18/19 07/19/19 07/20/19 06:59 06:59 06:59 Intake Total 1776 1440 360 Output Total 3595 3902 Balance -1819 -3622 360 Weight 80 kg 78.8 kg General appearance: PRESENT: no acute distress, obese Head exam: PRESENT: atraumatic, normocephalic Eye exam: PRESENT: conjunctiva pink. ABSENT: scleral icterus Respiratory exam: PRESENT: clear to auscultation oh, decreased breath sounds - at lung bases Cardiovascular exam: PRESENT: RRR, +S1, +S2. ABSENT: diastolic murmur, rubs, systolic murmur Vascular exam: ABSENT: pallor GI/Abdominal exam: PRESENT: normal bowel sounds, soft. ABSENT: distended, guarding, mass, organolmegaly, rebound, tenderness Gentrourinary exam: PRESENT: indwelling catheter Extremities exam: ABSENT: pedal edema Neurological exam: PRESENT: alert, awake, oriented to person, oriented to place, oriented to time, oriented to situation Psychiatric exam: PRESENT: appropriate affect, normal mood. ABSENT: homicidal ideation, suicidal ideation Skin exam: PRESENT: dry, warm Results Laboratory Results: 07/16/19 09:47 07/16/19 09:47 07/13/19 07/13/19 07/13/19 01:45 01:45 01:45 Creatine Kinase Cancelled Troponin I 0.071 NT-Pro-B Natriuret Pep 7630 H 07/13/19 07/13/19 07/13/19 06:20 06:20 10:05 Creatine Kinase 670 H 572 H Troponin I 0.099 NT-Pro-B Natriuret Pep 07/13/19 07/13/19 07/13/19 10:05 16:50 16:50 Creatine Kinase 429 H Troponin I 0.082 0.059 NT-Pro-B Natriuret Pep 07/14/19 04:36 Creatine Kinase Troponin I NT-Pro-B Natriuret Pep 5290 H Impressions: Head CT 07/13/19 02:23 IMPRESSION: No acute intracranial findings. Chest X-Ray 07/13/19 02:24 IMPRESSION: Slightly worsening aeration of the lungs. Assessment & Plan - Diagnosis (1) Acute hypercapnic respiratory failure Is this a current diagnosis for this admission?: Yes Plan: Continue current management with BiPAP support as needed. (2) Acute diastolic heart failure Is this a current diagnosis for this admission?: Yes Plan: Continue current medication management. (3) Chronic obstructive pulmonary disease (COPD) Qualifiers: Qualified Code(s): J44.9 - Chronic obstructive pulmonary disease, unspecified Is this a current diagnosis for this admission?: Yes Plan: Continue current medication management. (4) Pulmonary hypertension Is this a current diagnosis for this admission?: Yes Plan: Continue current medication management. (5) Diabetes mellitus type 2 in obese Is this a current diagnosis for this admission?: Yes Plan: Continue current medication management. (6) Hypothyroidism (acquired) Is this a current diagnosis for this admission?: Yes Plan: Continue current medication management. - Time Time Spent with patient: 25-34 minutes Level of Care: IMCU Medications reviewed and adjusted accordingly: Yes Anticipated discharge: Home with Homehealth, SNF Within: Other - Inpatient Certification Based on my medical assessment, after consideration of the patient's comorbidities, presenting symptoms, or acuity I expect that the services needed warrant INPATIENT care.: Yes I certify that my determination is in accordance with my understanding of Medicare's requirements for reasonable and necessary INPATIENT services [42 CFR 412.3e].: Yes Medical Necessity: Significant Comorbidiites Make Outpatient Treatment Too Risky, Need Close Monitoring Due to Risk of Patient Decompensation, Need For Continuous Telemetry Monitoring, Need for Nebulizer Therapy and Monitoring of Response, Risk of Complication if Not Cared For in Hospital, Risk of Diagnosis Which Will Require Inpatient Eval/Care/Monitoring Post Hospital Care: D/C Associate Professor Of Theology Documentation, D/C or Transfer Summary - Plan Summary Plan Summary: Continue current medication management.
--- NOTE | 2019-07-19 19:52 | Progress Note ---
Provider Note Provider Note: CARDIOLOGY PROGRESS NOTE by Dr. Nidhi Frank on 07/19/2019. Subjective: The patient continues to be confused but states that she has no chest pain or discomfort. Her shortness of breath appears to be improved. There is no arrhythmias seen on the monitor. There is only trace pedal edema bilaterally. Physical EXAMINATION: The Patient Is Mildly Obese. In No Acute Distress. Selected Entries 07/19/19 12:23 Temperature 99.1 F Temperature Oral Source Pulse Rate 68 Respiratory 20 Rate Blood Pressure 140/57 H Blood Pressure 84 Mean BP Location Right Arm BP Position Supine O2 Sat by Pulse 92 Oximetry Oxygen Flow 5.00 Rate Oxygen Delivery Nasal Cannula Method Head: Is atraumatic normocephalic. EYES: Pupils are equal round regular reactive light accommodation. Extraocular movements are normal. There is no conjunctival pallor. EARS: Tympanic membranes are intact. External auditory canals are clear. NOSE: There is no deviated nasal septum. There is no inflammation of nasal mucous membrane. MOUTH: Mucous membranes of mouth are moist. Tongue is moist. There is no ulcers. THROAT: There is no redness of the oropharynx. There is no exudates. SKIN: There is no skin rashes. There is no skin lesions. There is no petechia or ecchymosis. NECK: Supple. There is mild JVD present. Carotids are equal there is no bruit there is no lymphadenopathy. There is no goiter. There is no accessory muscle respiration use. Trachea is central. LUNGS: He has diminished air entry prolonged expiration on auscultation. There is a few scattered rhonchi. There is no wheezing or rales. On percussion there is hyperresonance. HEART: S1-S2 is hear d. There is no S3 gallop. There is no S4 gallop. There is systolic murmur in the left sternal border and the apex there is no rub. ABDOMEN: Is obese. Nontender. There is Dr. splenomegaly. Bowel sounds are well heard. EXTREMITIES: Femorals are diminished. Leg pulses are diminished. There is trace pedal edema bilaterally. There is no DVT cellulitis. There is no calf tenderness. ANUS: The patient's confused and oriented only in person to person. She moves all 4 extremities. PSYCHIATRIC: The patient does not appear to be anxious or agitated. Labs- All tests 24 hr 07/18/19 07/19/19 07/19/19 20:54 07:47 11:34 POC Glucose 142 H 130 H 110 07/19/19 16:41 POC Glucose [address] 07/13/19 02:23 IMPRESSION: No acute intracranial findings. Chest X-Ray 07/13/19 02:24 IMPRESSION: Slightly worsening aeration of the lungs. IMPRESSION/RECOMMENDATION: 1. Acute on probably chronic systolic rate regular heart failure.] Right ventricular systolic heart failure.] This is secondary to severe pulmonary hypertension. Recommend adding an ARB and amlodipine. Would stop the IV Lasix drip and convert to p.o. Lasix. 2. Severe pulmonary hypertension: As mentioned earlier would recommend starting the patient on amlodipine and ARB. Severe pulmonary hypertension most likely secondary to the patient's COPD. Would recommend any outpatient sleep study to make sure the patient has a sleep study. Doubt that the patient will cooperate for this. 3. Acute renal failure: Renal function improving. 4. Acute exacerbation COPD: Continue current treatment. Seems to be almost resolved and patient back to baseline. 5. Diabetes mellitus: Continue antidiabetic treatment. Accu-Cheks as per protocol. 6. Hypothyroidism: TSH mildly elevated. Continue thyroid replacement. Probably the patient is noncompliant with the medication. 7. Mild aortic stenosis. 8. Severe dementia. Occasions reviewed. Medical regimen and management plan discussed with attending provider on the case. Medical decision making a moderate complexity. 40 minutes spent on the patient was in 50% of the time spent in direct patient care
[2019-07-19] MEDS: INSULIN GLARGINE,HUM.REC.ANLOG 1,000 UNIT/10 ML VIAL SUBCUT SCH (21:36)
[2019-07-20] MEDS: IPRATROPIUM/ALBUTEROL 0.5-2.5 MG/3 ML AMPUL NEB SCH ×4 (02:13→20:38)
[2019-07-20] MEDS: LEVOTHYROXINE SODIUM 0.15 MG TABLET PO SCH (06:07)
[2019-07-20] MEDS: HEPARIN SOD (PORCINE) 5,000 UNIT/ML 1 ML VIAL SUBCUT SCH ×3 (06:07→22:18)
[2019-07-20] MEDS: LEVOTHYROXINE SODIUM 0.1 MG TABLET PO SCH (06:07)
[2019-07-20] MEDS: AMLODIPINE BESYLATE 2.5 MG TABLET PO SCH ×2 (09:20→22:18)
[2019-07-20] MEDS: LOSARTAN POTASSIUM 25 MG TABLET PO SCH (09:20)
[2019-07-20] MEDS: DULOXETINE HCL 30 MG CAPSULE.DR PO SCH (09:20)
[2019-07-20] MEDS: BUSPIRONE HCL 10 MG TABLET PO SCH ×2 (09:20→22:18)
[2019-07-20] MEDS: SITAGLIPTIN PHOSPHATE 50 MG TABLET PO SCH (09:20)
[2019-07-20] MEDS: FLUTICASONE/UMECLIDIN/VILANTER 100-62.5-25 MCG/DOSE IH SCH (09:22)
[2019-07-20] MEDS: ACETAMINOPHEN 325 MG TABLET PO PRN (09:52)
--- NOTE | 2019-07-20 13:59 | PDOC PROGRESS REPORT ---
Subjective Progress Note for:: 07/20/19 Subjective:: Patient denied chest pain or difficulty with breathing. No fever or chills. No nausea, vomiting or abdominal pain. Reason For Visit: HEART FAILURE Physical Exam Vital Signs: Temp Pulse Resp BP Pulse Ox 98.6 F 72 16 104/54 L 97 07/20/19 11:00 07/20/19 11:00 07/20/19 11:00 07/20/19 11:00 07/20/19 11:00 Intake & Output 07/19/19 07/20/19 07/21/19 06:59 06:59 06:59 Intake Total 1440 1100 480 Output Total 3902 2600 600 Balance -2462 -1500 -120 Weight 78.8 kg 78.5 kg Physical Exam: General appearance: PRESENT: no acute distress, obese Head exam: PRESENT: atraumatic, normocephalic Eye exam: PRESENT: conjunctiva pink. ABSENT: pallor, scleral icterus Respiratory exam: PRESENT: clear to auscultation oh, decreased breath sounds - at lung bases Cardiovascular exam: PRESENT: RRR, +S1, +S2. ABSENT: diastolic murmur, rubs, systolic murmur GI/Abdominal exam: PRESENT: normal bowel sounds, soft. ABSENT: distended, guarding, mass, organomegaly, rebound, tenderness Gentrourinary exam: PRESENT: indwelling catheter Extremities exam: ABSENT: pedal edema Neurological exam: PRESENT: alert, awake, oriented to person, oriented to place, oriented to time, oriented to situation Psychiatric exam: PRESENT: appropriate affect, normal mood. ABSENT: homicidal ideation, suicidal ideation Skin exam: PRESENT: dry, warm Results Laboratory Results: 07/16/19 09:47 07/16/19 09:47 07/13/19 07/13/19 07/13/19 01:45 01:45 01:45 Creatine Kinase Cancelled Troponin I 0.071 NT-Pro-B Natriuret Pep 7630 H 07/13/19 07/13/19 07/13/19 06:20 06:20 10:05 Creatine Kinase 670 H 572 H Troponin I 0.099 NT-Pro-B Natriuret Pep 07/13/19 07/13/19 07/13/19 10:05 16:50 16:50 Creatine Kinase 429 H Troponin I 0.082 0.059 NT-Pro-B Natriuret Pep 07/14/19 04:36 Creatine Kinase Troponin I NT-Pro-B Natriuret Pep 5290 H Impressions: Head CT 07/13/19 02:23 IMPRESSION: No acute intracranial findings. Chest X-Ray 07/13/19 02:24 IMPRESSION: Slightly worsening aeration of the lungs. Assessment & Plan - Diagnosis (1) Acute hypercapnic respiratory failure Is this a current diagnosis for this admission?: Yes (2) Acute diastolic heart failure Is this a current diagnosis for this admission?: Yes (3) Chronic obstructive pulmonary disease (COPD) Qualifiers: Is this a current diagnosis for this admission?: Yes (4) Pulmonary hypertension Is this a current diagnosis for this admission?: Yes (5) Diabetes mellitus type 2 in obese Is this a current diagnosis for this admission?: Yes (6) Hypothyroidism (acquired) Is this a current diagnosis for this admission?: Yes - Time Time Spent with patient: 25-34 minutes Level of Care: IMCU Medications reviewed and adjusted accordingly: Yes Anticipated discharge: Home with Homehealth Within: Other - Inpatient Certification Based on my medical assessment, after consideration of the patient's comorbidities, presenting symptoms, or acuity I expect that the services needed warrant INPATIENT care.: Yes I certify that my determination is in accordance with my understanding of Medicare's requirements for reasonable and necessary INPATIENT services [42 CFR 412.3e].: Yes Medical Necessity: Significant Comorbidiites Make Outpatient Treatment Too Risky, Need Close Monitoring Due to Risk of Patient Decompensation, Need For Continuous Telemetry Monitoring, Risk of Complication if Not Cared For in Hospital, Risk of Diagnosis Which Will Require Inpatient Eval/Care/Monitoring Post Hospital Care: D/C [facility] Documentation - Plan Summary Plan Summary: D/C Glasgow catheter. Continue all current medication management.
--- NOTE | 2019-07-20 14:03 | Progress Note ---
Provider Note Provider Note: Cardiology progress note by Dr. Nidhi Frank on 07/20/2019 OBJECTIVE: The patient continues to be confused. She appears to be in no distress. She is not on the BiPAP anymore and she is on nasal cannula with good saturation from oxygen point of view. She is able to lie flat in bed. There is no arrhythmias seen on the monitor the patient denies any chest pain or shortness of breath or PND orthopnea. She has only trace leg edema. There is no TIA CVA symptoms. Dementia seems to be under control and she is not agitated or confrontational. PHYSICAL EXAMINATION: The patient is mildly obese in no acute distress. Selected Entries 07/20/19 11:00 Temperature 98.6 F Temperature Oral Source Pulse Rate 72 Respiratory 16 Rate Blood Pressure 104/54 L Blood Pressure 70 Mean BP Location Left Arm BP Position Supine O2 Sat by Pulse 97 Oximetry Oxygen Delivery Nasal Cannula Method Head: Is atraumatic normocephalic. EYES: Pupils are equal round regular reactive light accommodation. Extraocular movements are normal. There is no conjunctival pallor. EARS: Tympanic membranes are intact. External auditory canals are clear. NOSE: There is no deviated nasal septum. There is no inflammation of nasal mucous membrane. MOUTH: Mucous membranes of mouth are moist. Tongue is moist. There is no ulcers. THROAT: There is no redness of the oropharynx. There is no exudates. SKIN: There is no skin rashes. There is no skin lesions. There is no petechia or ecchymosis. NECK: Supple. There is mild JVD present. Carotids are equal there is no bruit there is no lymphadenopathy. There is no goiter. There is no accessory muscle respiration use. Trachea is central. LUNGS: He has diminished air entry prolonged expiration on auscultation. There is a few scattered rhonchi. There is no wheezing or rales. On percussion there is hyperresonance. HEART: S1-S2 is heard. There is no S3 gallop. There is no S4 gallop. There is systolic murmur in the left sternal border and the apex there is no rub. ABDOMEN: Is obese. Nontender. There is Dr. splenomegaly. Bowel sounds are well heard. EXTREMITIES: Femorals are diminished. Leg pulses are diminished. There is trace pedal edema bilaterally. There is no DVT cellulitis. There is no calf tenderness. ANUS: The patient's confused and oriented only in person to person. She moves all 4 extremities. PSYCHIATRIC: The patient does not appear to be anxious or agitated. Labs- All tests 24 hr 07/19/19 07/19/19 07/20/19 16:41 21:25 07:40 POC Glucose 121 H 132 H 109 07/20/19 11:01 POC Glucose [address] 07/13/19 02:23 IMPRESSION: No acute intracranial findings. Chest X-Ray 07/13/19 02:24 IMPRESSION: Slightly worsening aeration of the lungs. IMPRESSION/RECOMMENDATION: 1. Acute on probably chronic systolic rate regular heart failure.] Right ventricular systolic heart failure.] This is secondary to severe pulmonary hypertension. Recommend adding an ARB and amlodipine. Would stop the IV Lasix drip and convert to p.o. Lasix. 2. Severe pulmonary hypertension: As mentioned earlier would recommend starting the patient on amlodipine and ARB. Severe pulmonary hypertension most likely secondary to the patient's COPD. Would recommend any outpatient sleep study to make sure the patient has a sleep study. Doubt that the patient will cooperate for this. 3. Acute renal failure: Renal function improving. 4. Acute exacerbation COPD: Continue current treatment. Seems to be almost resolved and patient back to baseline. 5. Diabetes mellitus: Continue antidiabetic treatment. Accu-Cheks as per protocol. 6. Hypothyroidism: TSH mildly elevated. Continue thyroid replacement. Probably the patient is noncompliant with the medication. 7. Mild aortic stenosis. 8. Severe dementia. Occasions reviewed. Medical regimen and management plan discussed with attending provider on the case. Medical decision making a moderate complexity. 40 minutes spent on the patient was in 50% of the time spent in direct patient care
[2019-07-20] MEDS: INSULIN GLARGINE,HUM.REC.ANLOG 1,000 UNIT/10 ML VIAL SUBCUT SCH (22:18)
[2019-07-21] MEDS: IPRATROPIUM/ALBUTEROL 0.5-2.5 MG/3 ML AMPUL NEB SCH ×4 (02:11→20:07)
[2019-07-21] MEDS: ACETAMINOPHEN 325 MG TABLET PO PRN (04:55)
[2019-07-21] MEDS: LEVOTHYROXINE SODIUM 0.15 MG TABLET PO SCH (05:19)
[2019-07-21] MEDS: HEPARIN SOD (PORCINE) 5,000 UNIT/ML 1 ML VIAL SUBCUT SCH ×3 (05:19→21:52)
[2019-07-21] MEDS: LEVOTHYROXINE SODIUM 0.1 MG TABLET PO SCH (05:19)
[2019-07-21] MEDS: BUSPIRONE HCL 10 MG TABLET PO SCH ×2 (10:14→22:47)
[2019-07-21] MEDS: SITAGLIPTIN PHOSPHATE 50 MG TABLET PO SCH (10:14)
[2019-07-21] MEDS: DULOXETINE HCL 30 MG CAPSULE.DR PO SCH (10:14)
[2019-07-21] MEDS: AMLODIPINE BESYLATE 2.5 MG TABLET PO SCH ×2 (10:19→22:47)
[2019-07-21] MEDS: LOSARTAN POTASSIUM 25 MG TABLET PO SCH (10:19)
[2019-07-21] MEDS: FLUTICASONE/UMECLIDIN/VILANTER 100-62.5-25 MCG/DOSE IH SCH (10:21)
--- NOTE | 2019-07-21 19:19 | Progress Note ---
Provider Note Provider Note: CARDIOLOGY PROGRESS NOTE by Dr. Nidhi Frank on 07/21/2019. Subjective: The Patient States That Shortness of Breath Is Much Improved. She Has No Shortness of Breath at Rest. There Is No Chest Pain or Discomfort. There Is No PND Orthopnea. She Is off of BiPAP and Is Sitting up in the Chair and Eating. She Denies Any PND Orthopnea Leg Edema or Palpitations. There Is No Arrhythmias Seen on the Monitor. PHYSICAL EXAMINATION: The patient is well-built. At present in no acute distress. Selected Entries 07/21/19 16:03 Temperature 98.3 F Temperature Oral Source Pulse Rate 61 Respiratory 18 Rate Blood Pressure 113/40 L Blood Pressure 64 Mean BP Location Right Arm BP Position Supine O2 Sat by Pulse 97 Oximetry Oxygen Flow 2.00 Rate Oxygen Delivery Nasal Cannula Method Head: Is atraumatic normocephalic. EYES: Pupils are equal round regular react carmela light accommodation. Extraocular movements are normal. There is no conjunctival pallor. EARS: Tympanic membranes are intact. External auditory canals are clear. NOSE: There is no deviated nasal septum. There is no inflammation of nasal mucous membrane. MOUTH: Mucous membranes of mouth are moist. Tongue is moist. There is no ulcers. THROAT: There is no redness of the oropharynx. There is no exudates. SKIN: There is no skin rashes. There is no skin lesions. There is no petechia or ecchymosis. NECK: Supple. There is mild JVD present. Carotids are equal there is no bruit there is no lymphadenopathy. There is no goiter. There is no accessory muscle respiration use. Trachea is central. LUNGS: He has diminished air entry prolonged expiration on auscultation. There is a few scattered rhonchi. There is no wheezing or rales. On percussion there is hyperresonance. HEART: S1-S2 is heard. There is no S3 gallop. There is no S4 gallop. There is systolic murmur in the left sternal border and the apex there is no rub. ABDOMEN: Is obese. Nontender. There is Dr. splenomegaly. Bowel sounds are well heard. EXTREMITIES: Femorals are diminished. Leg pulses are diminished. There is trace pedal edema bilaterally. There is no DVT cellulitis. There is no calf tenderness. ANUS: The patient's confused and oriented only in person to person. She moves all 4 extremities. PSYCHIATRIC: The patient does not appear to be anxious or agitated. Labs- All tests 24 hr 07/20/19 07/21/19 07/21/19 21:19 07:48 11:47 POC Glucose 132 H 97 102 07/21/19 16:04 POC Glucose [address] 07/13/19 02:23 IMPRESSION: No acute intracranial findings. Chest X-Ray 07/13/19 02:24 IMPRESSION: Slightly worsening aeration of the lungs. IMPRESSION/RECOMMENDATION: 1. Acute on probably chronic systolic rate regular heart failure.] Right ventricular systolic heart failure.] This is secondary to severe pulmonary hypertension. Recommend adding an ARB and amlodipine. Would stop the IV Lasix drip and convert to p.o. Lasix. 2. Severe pulmonary hypertension: As mentioned earlier would recommend starting the patient on amlodipine and ARB. Severe pulmonary hypertension most likely secondary to the patient's COPD. Would recommend any outpatient sleep study to make sure the patient has a sleep study. Doubt that the patient will cooperate for this. 3. Acute renal failure: Renal function improving. 4. Acute exacerbation COPD: Continue current treatment. Seems to be almost resolved and patient back to baseline. 5. Diabetes mellitus: Continue antidiabetic treatment. Accu-Cheks as per protocol. 6. Hypothyroidism: TSH mildly elevated. Continue thyroid replacement. Probably the patient is noncompliant with the medication. 7. Mild aortic stenosis. 8. Severe dementia. Occasions reviewed. Medical regimen and management plan discussed with attending provider on the case. Medical decision making a moderate complexity. 40 minutes spent on the patient was in 50% of the time spent in direct patient care. We will sign off. The patient offered to be followed up in the office if she so desires.
--- NOTE | 2019-07-21 21:51 | PDOC PROGRESS REPORT ---
Subjective Progress Note for:: 07/21/19 Subjective:: Patient seen by the bedside, presently not requiring BiPAP, discharge planning arrange hospital bed and wheelchair on discharge, hopefully to be discharged home tomorrow Reason For Visit: HEART FAILURE Physical Exam Vital Signs: Temp Pulse Resp BP Pulse Ox 98.3 F 72 18 113/40 L 95 07/21/19 16:03 07/21/19 20:08 07/21/19 20:08 07/21/19 16:03 07/21/19 20:08 Intake & Output 07/20/19 07/21/19 07/22/19 06:59 06:59 06:59 Intake Total 2031 571 9834 Output Total 2600 600 100 Balance -7701 002 9008 Weight 78.5 kg 76 kg General appearance: PRESENT: no acute distress Eye exam: PRESENT: PERRLA Respiratory exam: PRESENT: clear to auscultation oh Cardiovascular exam: PRESENT: +S1, +S2 GI/Abdominal exam: PRESENT: soft Neurological exam: PRESENT: alert Results Laboratory Results: 07/16/19 09:47 07/16/19 09:47 07/13/19 07/13/19 07/13/19 01:45 01:45 01:45 Creatine Kinase Cancelled Troponin I 0.071 NT-Pro-B Natriuret Pep 7630 H 07/13/19 07/13/19 07/13/19 06:20 06:20 10:05 Creatine Kinase 670 H 572 H Troponin I 0.099 NT-Pro-B Natriuret Pep 07/13/19 07/13/19 07/13/19 10:05 16:50 16:50 Creatine Kinase 429 H Troponin I 0.082 0.059 NT-Pro-B Natriuret Pep 07/14/19 04:36 Creatine Kinase Troponin I NT-Pro-B Natriuret Pep 5290 H Impressions: Head CT 07/13/19 02:23 IMPRESSION: No acute intracranial findings. Chest X-Ray 07/13/19 02:24 IMPRESSION: Slightly worsening aeration of the lungs. Assessment & Plan - Diagnosis (1) Acute hypercapnic respiratory failure Is this a current diagnosis for this admission?: Yes (2) Acute diastolic heart failure Is this a current diagnosis for this admission?: Yes (3) Dementia Qualifiers: Dementia type: unspecified type Dementia behavioral disturbance: without behavioral disturbance Qualified Code(s): F03.90 - Unspecified dementia without behavioral disturbance Is this a current diagnosis for this admission?: Yes (4) Type 2 diabetes mellitus Qualifiers: Diabetes mellitus group home insulin use: without termite exterminator use Diabetes mellitus complication status: with neurologic complications Diabetes mellitus complication detail: with polyneuropathy Qualified Code(s): E11.42 - Type 2 diabetes mellitus with diabetic polyneuropathy Is this a current diagnosis for this admission?: Yes (5) Hypothyroidism (acquired) Is this a current diagnosis for this admission?: Yes (6) Pulmonary hypertension Is this a current diagnosis for this admission?: Yes - Time Time Spent with patient: 15-24 minutes Level of Care: IMCU
[2019-07-21] MEDS: INSULIN GLARGINE,HUM.REC.ANLOG 1,000 UNIT/10 ML VIAL SUBCUT SCH (22:45)
[2019-07-22] MEDS ORDERED: LORATADINE 10 MG TABLET PO PRN (01:08)
[2019-07-22] MEDS ORDERED: LORATADINE 10 MG TABLET PO ONE (01:15)
[2019-07-22] MEDS: IPRATROPIUM/ALBUTEROL 0.5-2.5 MG/3 ML AMPUL NEB SCH ×2 (02:37→09:00)
[2019-07-22] MEDS: HEPARIN SOD (PORCINE) 5,000 UNIT/ML 1 ML VIAL SUBCUT SCH (05:31)
[2019-07-22] MEDS: LEVOTHYROXINE SODIUM 0.15 MG TABLET PO SCH (05:34)
[2019-07-22] MEDS: LEVOTHYROXINE SODIUM 0.1 MG TABLET PO SCH (05:34)
--- NOTE | 2019-07-22 08:09 | PDOC DISCHARGE SUMMARY ---
Impression - Admit/DC Date/PCP Admission Date/Primary Care Provider: 07/13/19 04:14 JEN MAE MD Discharge Date: 07/22/19 - Discharge Diagnosis (1) Acute hypercapnic respiratory failure Is this a current diagnosis for this admission?: Yes (2) Type 2 diabetes mellitus Is this a current diagnosis for this admission?: Yes (3) Hypothyroidism (acquired) Is this a current diagnosis for this admission?: Yes (4) Pulmonary hypertension Is this a current diagnosis for this admission?: Yes (5) Acute exacerbation of chronic obstructive pulmonary disease (COPD) Is this a current diagnosis for this admission?: Yes (6) Metabolic encephalopathy Is this a current diagnosis for this admission?: Yes (7) Dementia Is this a current diagnosis for this admission?: Yes - Additional Information Discharge Diet: Cardiac Discharge Activity: Activity As Tolerated, Balance Activity w/Rest, Weigh Daily Referrals: JEN MAE MD [Primary Care Provider] - 07/29/19 1:45 pm Prescriptions: Losartan Potassium [Cozaar 25 mg Tablet] 25 mg PO DAILY #90 tablet Home Medications: Acetaminophen [Tylenol 325 mg Tablet] 325 mg PO Q4HP PRN 12/20/18 Ipratropium/Albuterol Sulfate [Duoneb 3 ml Ampul] 3 ml NEB Q6 PRN 12/21/18 Buspirone HCl [Buspar 10 mg Tablet] 10 mg PO Q12 #60 12/31/18 Duloxetine HCl [Cymbalta 30 mg Capsule.dr] 60 mg PO DAILY #30 12/31/18 Insulin Glargine,Hum.rec.anlog [Lantus (Pyxis) Insulin 100 Unit/1 ml 10 ml] 30 units SUBCUT QHS #2 unit 12/31/18 Sitagliptin Phosphate [Januvia 50 mg Tablet] 100 mg PO DAILY #30 12/31/18 Fluticasone/Umeclidin/Vilanter [Trelegy 100-62.5-25 Mcg Ellipta 14 Dose/Dpi] 1 puff IH DAILY 07/14/19 Levothyroxine Sodium [Synthroid] 250 mcg PO Q6AM 07/14/19 Losartan Potassium [Cozaar 25 mg Tablet] 25 mg PO DAILY #90 tablet 07/21/19 History of Present Illiness History of Present Illness: GABINO ALEXANDER is a 74 year old female she has a history of progressive dementia, chronic obstructive pulmonary disease, she was brought to the emergency room from home by EMS for evaluation of acute onset leaning to the left side and weakness that started about 8 hours before presentation to the emergency room. She also have increased lower extremity swelling for the past 1 week, worsening shortness of breath the last few days. Again to the EMS the oxygen saturation was 82% on 4 L the oxygen saturation dropped to the low 70s when the EMS left the residence she was then placed on a nonrebreather at 10 L and the oxygen saturation improved to 96%.The CAT scan of the head without contrast was obtained in the emergency room, it demonstrated no acute hemorrhagic or mass- effect or midline shift there is no hydrocephalus, no significant volume loss, there are mild patchy hypodensities within the periventricular and subcortical w juventino matter consistent with microangiopathic ischemic changes. The B type natruretic peptide, chest x-ray consistent with CHF. When I saw patient on the floor, she is virtually unresponsive the arterial blood gas on FiO2 8 L, pH 7.23, PCO2 88.6, PO2 84.7 bicarbonate 36 consistent with acute hypercapnic respiratory failure. Patient started on BiPAP to support breathing Hospital Course Hospital Course: Patient was admitted for the management of acute hypercapnic respiratory failure associated with unresponsiveness, on admission the B type natruretic peptide was elevated, Initially it was suggested that she was in heart failure she was empirically started on Lasix drip, a 2D echo was obtained, it demonstrated preserved ejection fraction of left ventricle EF 65%, Doppler measurements negative for diastolic dysfunction. The Lasix drip was discontinued after it became apparent that she was not in CHF. The respiration was supported with noninvasive positive pressure ventilation BiPAP, she has underlining COPD she has mild wheeze she did not require intravenous Solu-Medrol she was treated with inhaled steroid based bronchodilator Trelegy.. She has associated pulmonary hypertension due to COPD. Physical Exam Vital Signs: Temp Pulse Resp BP Pulse Ox 98.0 F 58 L 16 128/42 H 95 07/22/19 04:28 07/22/19 07:00 07/22/19 04:28 07/22/19 04:28 07/22/19 04:28 Intake & Output 07/21/19 07/22/19 07/23/19 06:59 06:59 06:59 Intake Total 742 1737 Output Total 600 450 Balance 380 1287 Weight 76 kg 78.5 kg General appearance: PRESENT: no acute distress Eye exam: PRESENT: PERRLA Respiratory exam: PRESENT: clear to auscultation oh Cardiovascular exam: PRESENT: +S1, +S2 GI/Abdominal exam: PRESENT: soft Neurological exam: PRESENT: alert Results Laboratory Results: WBC 7.8 10^3/uL (4.0-10.5) 07/16/19 09:47 RBC 3.60 10^6/uL (3.72-5.28) L 07/16/19 09:47 Hgb 9.8 g/dL (12.0-15.5) L 07/16/19 09:47 Hct 30.5 % (36.0-47.0) L 07/16/19 09:47 MCV 85 fl (80-97) 07/16/19 09:47 MCH 27.2 pg (27.0-33.4) 07/16/19 09:47 MCHC 32.0 g/dL (32.0-36.0) 07/16/19 09:47 RDW 17.3 % (11.5-14.0) H 07/16/19 09:47 Plt Count 160 10^3/uL (150-450) 07/16/19 09:47 Lymph % (Auto) 11.4 % (13-45) L 07/16/19 09:47 [place] % (Auto) 8.8 % (3-13) 07/16/19 09:47 Eos % (Auto) 1.0 % (0-6) 07/16/19 09:47 Baso % (Auto) 0.5 % (0-2) 07/16/19 09:47 Absolute Neuts (auto) 6.1 10^3/uL (1.7-8.2) 07/16/19 09:47 Absolute Lymphs (auto) 0.9 10^3/uL (0.5-4.7) 07/16/19 09:47 Absolute Monos (auto) 0.7 10^3/uL (0.1-1.4) 07/16/19 09:47 Absolute Eos (auto) 0.1 10^3/uL (0.0-0.6) 07/16/19 09:47 Absolute Basos (auto) 0.0 10^3/uL (0.0-0.2) 07/16/19 09:47 Seg Neutrophils % 78.3 % (42-78) H 07/16/19 09:47 PT 14.7 SEC (11.4-15.4) 07/13/19 01:45 PT Cancelled 07/13/19 01:45 INR 1.14 07/13/19 01:45 INR Cancelled 07/13/19 01:45 INR (Anticoag Therapy) Cancelled 07/13/19 01:45 APTT 27.4 SEC (23.5-35.8) 07/13/19 01:45 Carbonic Acid 2.67 mmol/L (1.05-1.35) H 07/13/19 11:00 HCO3/H2CO3 Ratio 13:1 07/13/19 11:00 ABG pH 7.23 (7.35-7.45) L 07/13/19 11:00 ABG pCO2 88.6 mmHg (35-45) H* 07/13/19 11:00 ABG pO2 84.7 mmHg (80-100) 07/13/19 11:00 ABG HCO3 36.0 mmol/L (20-24) H 07/13/19 11:00 ABG Total CO2 38.7 mmol/L (21-25) H 07/13/19 11:00 ABG O2 Saturation 93.8 % (94-98) L 07/13/19 11:00 ABG Base Excess 6.0 mmol/L 07/13/19 11:00 VBG pH 7.23 (7.30-7.42) L 07/13/19 03:30 VBG pCO2 76.8 mmHg (35-63) H* 07/13/19 03:30 VBG HCO3 31.2 mmol/L (20-32) 07/13/19 03:30 VBG Base Excess 2.0 mmol/L 07/13/19 03:30 FiO2 8L 07/13/19 11:00 Sodium 134.6 mmol/L (137-145) L 07/16/19 09:47 Potassium 4.5 mmol/L (3.6-5.0) 07/16/19 09:47 Chloride 89 mmol/L (98-107) L 07/16/19 09:47 Carbon Dioxide 44 mmol/L (22-30) H* 07/16/19 09:47 Anion Gap 2 (5-19) L 07/16/19 09:47 BUN 20 mg/dL (7-20) 07/16/19 09:47 Creatinine 0.93 mg/dL (0.52-1.25) 07/16/19 09:47 Est GFR ( Amer) > 60 (>60) 07/16/19 09:47 Est GFR (MDRD) Non-Af 59 (>60) L 07/16/19 09:47 Glucose 113 mg/dL (75-110) H 07/16/19 09:47 POC Glucose 104 mg/dL (70-110) 07/22/19 07:51 Hemoglobin A1c % 6.6 % (4.7-6.0) H 07/14/19 04:36 Lactic Acid 0.7 mmol/L (0.7-2.1) 07/13/19 10:05 Calcium 7.7 mg/dL (8.4-10.2) L 07/16/19 09:47 Magnesium 2.1 mg/dL (1.6-2.3) 07/13/19 01:45 Total Bilirubin 0.4 mg/dL (0.2-1.3) 07/16/19 09:47 Direct Bilirubin 0.0 mg/dL (0.0-0.4) 07/16/19 09:47 Neonat Total Bilirubin Not Reportable 07/16/19 09:47 Neonat Direct Bilirubin Not Reportable 07/16/19 09:47 Neonat Indirect Bili Not Reportable 07/16/19 09:47 AST 20 U/L (14-36) 07/16/19 09:47 ALT 15 U/L (<35) 07/16/19 09:47 Alkaline Phosphatase 64 U/L (38-126) 07/16/19 09:47 Creatine Kinase 429 U/L (30-135) H 07/13/19 16:50 Troponin I 0.059 ng/mL 07/13/19 16:50 NT-Pro-B Natriuret Pep 5290 pg/mL (<125) H 07/14/19 04:36 Total Protein 5.7 g/dL (6.3-8.2) L 07/16/19 09:47 Albumin 3.0 g/dL (3.5-5.0) L 07/16/19 09:47 Triglycerides 100 mg/dL (<150) 07/14/19 04:36 Cholesterol 106.59 mg/dL (0-200) 07/14/19 04:36 LDL Cholesterol Direct 65 mg/dL (<100) 07/14/19 04:36 VLDL Cholesterol 20.0 mg/dL (10-31) 07/14/19 04:36 HDL Cholesterol 32 mg/dL (>40) L 07/14/19 04:36 TSH 5.79 uIU/mL (0.47-4.68) H 07/13/19 01:45 Free T4 1.62 ng/dL (0.78-2.19) 07/13/19 01:45 Urine Color YELLOW 07/13/19 03:43 Urine Appearance CLOUDY 07/13/19 03:43 Urine pH 5.0 (5.0-9.0) 07/13/19 03:43 Ur Specific [place] 1.016 07/13/19 03:43 Urine Protein >=500 mg/dL (NEGATIVE) H 07/13/19 03:43 Urine Glucose (UA) NEGATIVE mg/dL (NEGATIVE) 07/13/19 03:43 Urine Ketones NEGATIVE mg/dL (NEGATIVE) 07/13/19 03:43 Urine Blood LARGE (NEGATIVE) H 07/13/19 03:43 Urine Nitrite (Reflex) NEGATIVE (NEGATIVE) 07/13/19 03:43 Urine Bilirubin NEGATIVE (NEGATIVE) 07/13/19 03:43 Urine Urobilinogen NEGATIVE mg/dL (<2.0) 07/13/19 03:43 Leukocyte Esterase Rfl LARGE (NEGATIVE) H 07/13/19 03:43 Urine RBC (Auto) 5 /HPF 07/13/19 03:43 Urine Bacteria (Auto) 3+ /HPF 07/13/19 03:43 Urine WBC (Reflex) > 182 /HPF 07/13/19 03:43 Squamous Epi Cells Auto 4 /HPF 07/13/19 03:43 Urine Mucus (Auto) OCC /LPF 07/13/19 03:43 Urine Creatinine 65.2 mg/dL (15-278) 07/16/19 04:00 Protein/Creatinin Ratio 3.7 mg/mg (0.0-0.2) H 07/16/19 04:00 Urine Total Protein 244.0 mg/dL (<12) H 07/16/19 04:00 Urine Ascorbic Acid NEGATIVE (NEGATIVE) 07/13/19 03:43 Urine Opiates Screen NEGATIVE 07/16/19 04:00 Urine Methadone Screen NEGATIVE 07/16/19 04:00 Ur Barbiturates Screen NEGATIVE 07/16/19 04:00 Ur Phencyclidine Scrn NEGATIVE 07/16/19 04:00 Ur Amphetamines Screen NEGATIVE 07/16/19 04:00 U Benzodiazepines Scrn NEGATIVE 07/16/19 04:00 Urine Cocaine Screen NEGATIVE 07/16/19 04:00 U Marijuana (THC) Screen NEGATIVE 07/16/19 04:00 07/13/19 07/13/19 07/13/19 01:45 01:45 06:20 Troponin I 0.071 0.099 NT-Pro-B Natriuret Pep 7630 H 07/13/19 07/13/19 07/14/19 10:05 16:50 04:36 Troponin I 0.082 0.059 NT-Pro-B Natriuret Pep 5290 H Impressions: Head CT 07/13/19 02:23 IMPRESSION: No acute intracranial findings. Chest X-Ray 07/13/19 02:24 IMPRESSION: Slightly worsening aeration of the lungs. Stroke Is this a Stroke Patient?: No Acute Heart Failure - Is this a Heart Failure Patient?: No
[2019-07-22] MEDS: LOSARTAN POTASSIUM 25 MG TABLET PO SCH (09:14)
[2019-07-22] MEDS: AMLODIPINE BESYLATE 2.5 MG TABLET PO SCH (09:14)
[2019-07-22] MEDS: FLUTICASONE/UMECLIDIN/VILANTER 100-62.5-25 MCG/DOSE IH SCH (09:14)
[2019-07-22] MEDS: BUSPIRONE HCL 10 MG TABLET PO SCH (09:14)
[2019-07-22] MEDS: DULOXETINE HCL 30 MG CAPSULE.DR PO SCH (09:14)
[2019-07-22] MEDS: SITAGLIPTIN PHOSPHATE 50 MG TABLET PO SCH (09:14)
[2019-07-22 09:15] VITALS: BP 134/46
== END 2019-07-22 13:11 | disposition home health service (06) | DRG 189 ==
LOC: ER 01:32 → EH 04:14 → 3N 05:27
PROVIDERS: ADMIT Internal Medicine; ATTEND Internal Medicine
PROC: 5A09557 Assistance with Respiratory Ventilation, Greater than 96 Consecutive Hours, Continuous Positive Airway Pressure (ICD-10-PCS; principal; 2019-07-13)
DX: J96.02 Acute respiratory failure with hypercapnia (principal); G93.41 Metabolic encephalopathy; J44.1 Chronic obstructive pulmonary disease with (acute) exacerbation; N17.9 Acute kidney failure, unspecified; I11.0 Hypertensive heart disease with heart failure; E03.9 Hypothyroidism, unspecified; I27.20 Pulmonary hypertension, unspecified; F03.90 Unspecified dementia, unspecified severity, without behavioral disturbance, psychotic disturbance, mood disturbance, and anxiety; E11.51 Type 2 diabetes mellitus with diabetic peripheral angiopathy without gangrene; Z99.81 Dependence on supplemental oxygen; K21.9 Gastro-esophageal reflux disease without esophagitis; F32.9 Major depressive disorder, single episode, unspecified; F17.210 Nicotine dependence, cigarettes, uncomplicated; E66.9 Obesity, unspecified; I35.0 Nonrheumatic aortic (valve) stenosis; E11.42 Type 2 diabetes mellitus with diabetic polyneuropathy; Z68.30 Body mass index [BMI] 30.0-30.9, adult; B95.1 Streptococcus, group B, as the cause of diseases classified elsewhere; Z79.4 Long term (current) use of insulin; Z79.899 Other long term (current) drug therapy; Z79.890 Hormone replacement therapy; Z91.14 Patient's other noncompliance with medication regimen; Z91.11 Patient's noncompliance with dietary regimen; Z88.6 Allergy status to analgesic agent; Z88.1 Allergy status to other antibiotic agents; Z91.011 Allergy to milk products; Z88.8 Allergy status to other drugs, medicaments and biological substances; Z91.018 Allergy to other foods; Z91.048 Other nonmedicinal substance allergy status; I10 Essential (primary) hypertension
CPT/HCPCS: 36415; 70450; 71045; 80048; 80053; 80061; 80076; 80307; 81001; 82550; 82570; 82803; 82962; 83036; 83605; 83735; 83880; 84156; 84439; 84443; 84484; 85025; 85610; 85730; 87040; 87070; 87086; 87088; 87205; 93005; 93010; 93306; 93308; 94640; 94660; 99285; J1644; J1815; J1940; J3490; J7050; J7620

== ENCOUNTER 2019-08-12 23:42 | Emergency (ER) | payer MEDICARE ==
--- NOTE | 2019-08-13 00:24 | ER Document Report ---
ED Medical Screen (RME) - General Stated Complaint: PAIN/SWELLINGIN LEGS/ Time Seen by Provider: 08/13/19 00:20 Primary Care Provider: JEN MAE MD [Primary Care Provider] - Follow up as needed Mode of Arrival: Wheelchair Information source: Patient Notes: 74-year-old female patient presenting to the emergency department with chief complaint of bilateral leg pain and swelling. Patient reports she has a history of idiopathic peripheral edema, states this has caused her to be on the ventilator twice. She denies any shortness of breath or chest pain. She does report increased fatigue lately. She takes [id number] "water pills" which she states have not helped her. Significant swelling noted to bilateral lower extremities with increased erythema to the right lower extremity. I have greeted and performed a rapid initial assessment of this patient. A comprehensive ED assessment and evaluation of the patient, analysis of test results and completion of the medical decision making process will be conducted by additional ED providers. I have specifically instructed the patient or family members with the patient to immediately return to any nursing staff should anything change in the patient's condition or with their chief complaint. TRAVEL OUTSIDE OF THE [place] IN LAST 30 DAYS: No - Related Data Allergies/Adverse Reactions: melon Allergy (Unknown, Verified 07/02/18 19:17) allopurinol [From Zyloprim] Allergy (Verified 03/06/18 03:47) amitriptyline HCl [From Elavil] Allergy (Verified 03/06/18 03:47) belladonna alkaloids [From Bellergal-S] Allergy (Verified 03/06/18 03:47) cefuroxime axetil [From Ceftin] Allergy (Verified 03/06/18 03:47) celecoxib [From Celebrex] Allergy (Verified 03/06/18 03:47) cimetidine [From Tagamet] Allergy (Verified 03/06/18 03:47) codeine [Codeine] Allergy (Verified 03/06/18 03:47) doxepin HCl [From Sinequan] Allergy (Verified 03/06/18 03:47) ergotamine tartrate [From Bellergal-S] Allergy (Verified 03/06/18 03:47) fluoxetine HCl [From Prozac] Allergy (Verified 03/06/18 03:47) hydroxyzine HCl [From Atarax] Allergy (Verified 03/06/18 03:47) indigotindisulfonic acid [From Indigo [place]] Allergy (Verified 03/06/18 03:47) malathion Allergy (Verified 03/06/18 03:47) mefenamic acid Allergy (Verified 03/06/18 03:47) Milk Containing Products Allergy (Verified 03/06/18 03:47) naproxen sodium [From Anaprox] Allergy (Verified 03/06/18 03:47) nefazodone HCl [From Serzone] Allergy (Verified 03/06/18 03:47) phenylephrine tannate [From [place] CT] Allergy (Verified 03/06/18 03:47) pyrilamine tannate [From [place]cons[place] CT] Allergy (Verified 03/06/18 03:47) tolterodine tartrate [From Detrol] Allergy (Verified 03/06/18 03:47) trazodone HCl [From Desyrel] Allergy (Verified 03/06/18 03:47) morphine Adverse Reaction (Verified 04/11/18 21:58) renuzil Allergy (Uncoded 01/24/18 17:48) surgical steel Allergy (Uncoded 01/24/18 17:48) Past Medical History - Past Medical History Cardiac Medical History: Reports: Hx Congestive Heart Failure, Hx Hypertension, Hx Peripheral Vascular Disease Pulmonary Medical History: Reports: Hx COPD - on home 4L O2 [place], Hx Pneumonia, Hx Respiratory Failure Neurological Medical History: Denies: Hx Seizures Endocrine Medical History: Reports: Hx Diabetes Mellitus Type 2, Hx Hypothyroidism - w/med noncompliance and hx of myxedema coma Renal/ Medical History: Denies: Hx Hemodialysis, Hx Peritoneal Dialysis GI Medical History: Reports: Hx Gastroesophageal Reflux Disease. Denies: Hx Crohn's Disease, Hx Ulcerative Colitis Musculoskeltal Medical History: Reports Hx Arthritis, Denies Hx Gout Skin Medical History: Denies Hx Eczema, Denies Hx Psoriasis Psychiatric Medical History: Reports: Hx Depression Denies: Hx Bipolar Disorder, Hx Personality Disorder, Hx Schizoaffective Disorder Traumatic Medical History: Denies: Hx Traumatic Brain Injury Past Surgical History: Reports: Hx Cholecystectomy, Hx Orthopedic Surgery - L Wrist. Denies: Hx Hysterectomy - Immunizations Immunizations up to date: No Hx Diphtheria, Pertussis, Tetanus Vaccination: No Physical Exam - Vital signs Vitals: Temp Pulse Resp BP Pulse Ox 98.6 F 59 L 22 H 133/68 H 99 08/12/19 23:55 08/12/19 23:55 08/12/19 23:55 08/12/19 23:55 08/12/19 23:55 Course - Vital Signs Vital signs: Temp Pulse Resp BP Pulse Ox 98.6 F 59 L 22 H 133/68 H 99 08/12/19 23:55 08/12/19 23:55 08/12/19 23:55 08/12/19 23:55 08/12/19 23:55 Doctor's Discharge - Discharge Referrals: JEN MAE MD [Primary Care Provider] - Follow up as needed
--- NOTE | 2019-08-13 02:54 | ER Document Report ---
ED Extremity Problem, Lower - General Chief Complaint: Feet Swelling Stated Complaint: PAIN/SWELLINGIN LEGS/ Time Seen by Provider: 08/13/19 00:20 Primary Care Provider: JEN MAE MD [Primary Care Provider] - Follow up tomorrow Mode of Arrival: Wheelchair Information source: Patient Notes: 74-year-old female presented to ED for bilateral leg edema swelling and pain. 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 She does have CHF. She states this edema is caused him to be on the ventilator twice. She denies any shortness of breath chest pain any discomfort at this time. She is laying with her legs elevated at this time. She states she was just started on increase in cardiac pills water pills and she is actually feeling better now. She states her legs are now usually gets they are at this time. We will get blood urine chest x-ray and treat accordingly. TRAVEL OUTSIDE OF THE [place] IN LAST 30 DAYS: No - HPI Patient complains to provider of: Pain, Swelling, Other - Erythema Occurred: Other - Neck worse today Where: Home, Sports Quality of pain: No pain Severity: None Pain Level: Denies Context: Other - Bilateral remedy edema up to thighs Recent injury: No Associated symptoms: Painful ambulation Exacerbated by: Hanging down, Movement, Walking Relieved by: Elevation - Related Data Allergies/Adverse Reactions: melon Allergy (Unknown, Verified 07/02/18 19:17) allopurinol [From Zyloprim] Allergy (Verified 03/06/18 03:47) amitriptyline HCl [From Elavil] Allergy (Verified 03/06/18 03:47) belladonna alkaloids [From Bellergal-S] Allergy (Verified 03/06/18 03:47) cefuroxime axetil [From Ceftin] Allergy (Verified 03/06/18 03:47) celecoxib [From Celebrex] Allergy (Verified 03/06/18 03:47) cimetidine [From Tagamet] Allergy (Verified 03/06/18 03:47) codeine [Codeine] Allergy (Verified 03/06/18 03:47) doxepin HCl [From Sinequan] Allergy (Verified 03/06/18 03:47) ergotamine tartrate [From Bellergal-S] Allergy (Verified 03/06/18 03:47) fluoxetine HCl [From Prozac] Allergy (Verified 03/06/18 03:47) hydroxyzine HCl [From Atarax] Allergy (Verified 03/06/18 03:47) indigotindisulfonic acid [From Indigo [place]] Allergy (Verified 03/06/18 03:47) malathion Allergy (Verified 03/06/18 03:47) mefenamic acid Allergy (Verified 03/06/18 03:47) Milk Containing Products Allergy (Verified 03/06/18 03:47) naproxen sodium [From Anaprox] Allergy (Verified 03/06/18 03:47) nefazodone HCl [From Serzone] Allergy (Verified 03/06/18 03:47) phenylephrine tannate [From De[place] CT] Allergy (Verified 03/06/18 03:47) pyrilamine tannate [From [place] CT] Allergy (Verified 03/06/18 03:47) tolterodine tartrate [From Detrol] Allergy (Verified 03/06/18 03:47) trazodone HCl [From Desyrel] Allergy (Verified 03/06/18 03:47) morphine Adverse Reaction (Verified 04/11/18 21:58) renuzil Allergy (Uncoded 01/24/18 17:48) surgical steel Allergy (Uncoded 01/24/18 17:48) Past Medical History - General Information source: Patient - Social History Smoking Status: Former Smoker Frequency of alcohol use: None Drug Abuse: None Lives with: Family Family History: Reviewed & Not Pertinent, CAD, DM, Hypertension Patient has homicidal ideation: No - Past Medical History Cardiac Medical History: Reports: Hx Congestive Heart Failure, Hx Hypertension, Hx Peripheral Vascular Disease Pulmonary Medical History: Reports: Hx COPD - on home 4L O2 [place], Hx Pneumonia, Hx Respiratory Failure EENT Medical History: Reports: None Neurological Medical History: Reports: None Endocrine Medical History: Reports: Hx Diabetes Mellitus Type 2, Hx Hypothyroidism - w/med noncompliance and hx of myxedema coma Renal/ Medical History: Reports: None Malignancy Medical History: Reports: None GI Medical History: Reports: Hx Gastroesophageal Reflux Disease Musculoskeletal Medical History: Reports Hx Arthritis, Reports Hx Musculoskeletal Trauma Skin Medical History: Reports None Psychiatric Medical History: Reports: Hx Depression Traumatic Medical History: Reports: None Infectious Medical History: Reports: None Past Surgical History: Reports: Hx Cholecystectomy, Hx Orthopedic Surgery - L Wrist - Immunizations Immunizations up to date: No Hx Diphtheria, Pertussis, Tetanus Vaccination: No Review of Systems - Review of Systems Constitutional: No symptoms reported EENT: No symptoms reported Cardiovascular: No symptoms reported Respiratory: No symptoms reported Gastrointestinal: No symptoms reported Genitourinary: No symptoms reported Female Genitourinary: No symptoms reported Musculoskeletal: No symptoms reported Skin: No symptoms reported Hematologic/Lymphatic: No symptoms reported Neurological/Psychological: No symptoms reported -: Yes All other systems reviewed and negative Physical Exam - Vital signs Vitals: Temp Pulse Resp BP Pulse Ox 98.6 F 59 L 22 H 133/68 H 99 08/12/19 23:55 08/12/19 23:55 08/12/19 23:55 08/12/19 23:55 08/12/19 23:55 Interpretation: Normal - General General appearance: Appears well, Alert - HEENT Head: Normocephalic, Atraumatic Eyes: Normal Pupils: PERRL - Respiratory Respiratory status: No respiratory distress Chest status: Nontender Breath sounds: Normal Chest palpation: Normal - Cardiovascular Rhythm: Regular Heart sounds: Normal auscultation Murmur: No - Abdominal Inspection: Normal Distension: No distension Bowel sounds: Normal Tenderness: Nontender Organomegaly: No organomegaly - Back Back: Normal, Nontender - Extremities General upper extremity: Normal inspection, Nontender, Normal color, Normal ROM, Normal temperature General lower extremity: Normal temperature. No: Roman's sign Calf: Other - Erythema and edema Ankle: Edema, Other - Same Foot: Edema, No evidence of FB, Other - Same - Neurological Neuro grossly intact: Yes Cognition: Normal Orientation: AAOx4 [place] Coma Scale Eye Opening: Spontaneous [place] Coma Scale Verbal: Oriented [place] Coma Scale Motor: Obeys Commands [place] Coma Scale Total: 15 Speech: Normal Motor strength normal: LUE, RUE, LLE, RLE Sensory: Normal - Psychological Associated symptoms: Normal affect, Normal mood - Skin Skin Temperature: Warm Skin Moisture: Dry Skin Color: Normal Location of irregularity: Other - Swelling from knees down with erythema 3+ edema Course - Re-evaluation Re-evalutation: 08/13/19 10:[address] Mae concerning the elevated BNP in the swelling to bilateral extremities. Dr. villalta stated that the patient should be started on Lasix 40 mg p.o. and discharged home with prescription for Lasix 40 mg and to follow-up in his office. Patient was treated with 40 mg of Lasix in the emergency room and discharged home with prescription for 40 mg of Lasix. I did discuss all labs and x-ray with Dr. Mae and he stated he would follow these all up. He stated this was a chronic problem. - Vital Signs Vital signs: Temp Pulse Resp BP Pulse Ox 98.1 F 63 20 148/57 H 96 08/13/19 06:31 08/13/19 06:31 08/13/19 06:31 08/13/19 06:31 08/13/19 06:31 - Laboratory Result Diagrams: 08/13/19 03:04 08/13/19 03:04 Laboratory results interpreted by me: 08/13/19 08/13/19 08/13/19 03:04 03:04 03:04 RBC 3.54 L Hgb 9.8 L Hct 30.8 L MCHC 31.7 L RDW 18.0 H Carbon Dioxide 34 H BUN 26 H Est GFR ( Amer) 53 L Est GFR (MDRD) Non-Af 44 L Glucose 134 H NT-Pro-B Natriuret Pep 1760 H Urine Protein Urine Nitrite Ur Leukocyte Esterase 08/13/19 03:45 RBC Hgb Hct MCHC RDW Carbon Dioxide BUN Est GFR ( Amer) Est GFR (MDRD) Non-Af Glucose NT-Pro-B Natriuret Pep Urine Protein 100 H Urine Nitrite POSITIVE H Ur Leukocyte Esterase SMALL H - Diagnostic Test Radiology reviewed: Image reviewed, Reports reviewed Discharge - Discharge Clinical Impression: Bilateral pedal edema Condition: Stable Disposition: HOME, SELF-CARE Additional Instructions: You were seen today for bilateral swelling to your legs. I spoke with your doctor Dr. Mae he stated to discharge you home with a prescription for Lasix. Need to call his office in the morning and schedule a follow-up appointment next couple days with his office. Lasix Furosemide (Lasix) has been prescribed to eliminate excess fluid from your system. Lasix forces the kidney to put out extra salt and water in the urine. It is used for fluid retention due to heart or lung disease -- improving the symptoms of swelling, shortness of breath, and fatigue. Lasix may cause potassium loss (hypokalemia), so a potassium supplement is usually prescribed. If no potassium has been recommended for you, be sure to have your serum potassium checked after a short time on the medication. Contact your doctor if you have severe weakness or palpitations. Weigh yourself daily. Changes in your weight show how much salt and water your body is eliminating (or retaining). Generally, you should not lose more than about two pounds daily. Once you have lost the desired amount of extra fluid, continued weighing is recommended to monitor your condition. FOLLOW-UP CARE: If you have been referred to a physician for follow-up care, call the physicians office for an appointment as you were instructed or within the next two days. If you experience worsening or a significant change in your symptoms, notify the physician immediately or return to the Emergency Department at any time for re-evaluation. Prescriptions: Furosemide [Lasix 40 mg Tablet] 40 mg PO QAM #7 tablet Forms: Elevated Blood Pressure Referrals: JEN MAE MD [Primary Care Provider] - Follow up tomorrow
[2019-08-13 03:36] LABS: ABSOLUTE EOSINOPHILS # (AUTO) 0.2 10^3/uL (0.0-0.6); ABSOLUTE LYMPHOCYTES (AUTO) 1.3 10^3/uL (0.5-4.7); ABSOLUTE NEUT (AUTO) 6.2 10^3/uL (1.7-8.2); BASOPHILS % (AUTO) 0.4 % (0-2); EOSINOPHILS % (AUTO) 2.4 % (0-6); HEMATOCRIT 30.8 % (36.0-47.0); HEMOGLOBIN 9.8 g/dL (12.0-15.5); LYMPHOCYTES % (AUTO) 15.3 % (13-45); MEAN CORPUSCULAR HEMOGLOBIN 27.5 pg (27.0-33.4); MEAN CORPUSCULAR HGB CONC 31.7 g/dL (32.0-36.0); MEAN CORPUSCULAR VOLUME 87 fl (80-97); MONOCYTES % (AUTO) 10.9 % (3-13); PLATELET COUNT 159 10^3/uL (150-450); RED BLOOD COUNT 3.54 10^6/uL (3.72-5.28); TOTAL CELLS COUNTED % (AUTO) 100 %; WHITE BLOOD COUNT 8.7 10^3/uL (4.0-10.5)
--- NOTE | 2019-08-13 03:41 | RADIOLOGY REPORT (SQ) ---
CHEST 1 VIEW on 08/13/2019 at 3:22 AM CLINICAL INDICATION: Syncope COMPARISON: 07/13/2019 FINDINGS: Cardiomegaly is noted. There are small bilateral pleural effusions. Bilateral interstitial opacities likely represents edema. Vascular calcification is noted in the aorta. No bony abnormality is noted. IMPRESSION: Findings most consistent with changes of CHF.
[2019-08-13 03:49] LABS: ALBUMIN 3.6 g/dL (3.5-5.0); ALKALINE PHOSPHATASE 73 U/L (38-126); ANION GAP 5 (5-19); ASPARTATE AMINO TRANSFERASE 26 U/L (14-36); BILIRUBIN,TOTAL 0.3 mg/dL (0.2-1.3); BLOOD UREA NITROGEN 26 mg/dL (7-20); CALCIUM 8.5 mg/dL (8.4-10.2); CARBON DIOXIDE 34 mmol/L (22-30); CHLORIDE 100 mmol/L (98-107); GLUCOSE 134 mg/dL (75-110); POTASSIUM 4.9 mmol/L (3.6-5.0); TOTAL PROTEIN 7.1 g/dL (6.3-8.2)
[2019-08-13 05:15] LABS: APPEARANCE,URINE SLIGHTLY-CLOUDY; BILIRUBIN,URINE NEGATIVE (NEGATIVE); COLOR,URINE YELLOW; GLUCOSE, URINE NEGATIVE (NEGATIVE); KETONES,URINE NEGATIVE (NEGATIVE); LEUKOCYTE ESTERASE,URINE SMALL (NEGATIVE); NITRITE,URINE POSITIVE (NEGATIVE); PROTEIN,URINE 100 mg/dL (NEGATIVE); URINE SPECIFIC GRAVITY 1.015; UROBILINOGEN,URINE NEGATIVE mg/dL (<2.0)
[2019-08-13] MEDS ORDERED: FUROSEMIDE 40 MG TABLET PO ONE (05:54)
[2019-08-13 06:14] VITALS: BP 148/57
== END 2019-08-13 06:31 | disposition home or self-care (01) ==
LOC: ER 23:42
DX: I11.0 Hypertensive heart disease with heart failure (principal); I50.9 Heart failure, unspecified; R60.0 Localized edema; L53.9 Erythematous condition, unspecified; E11.51 Type 2 diabetes mellitus with diabetic peripheral angiopathy without gangrene; J44.9 Chronic obstructive pulmonary disease, unspecified; Z87.891 Personal history of nicotine dependence; Z79.899 Other long term (current) drug therapy; Z91.018 Allergy to other foods; Z88.8 Allergy status to other drugs, medicaments and biological substances; Z88.1 Allergy status to other antibiotic agents; Z88.6 Allergy status to analgesic agent; Z88.5 Allergy status to narcotic agent; Z91.011 Allergy to milk products; Z91.048 Other nonmedicinal substance allergy status
CPT/HCPCS: 99283; 36415; 87040; 87086; 85025; 87088; 80053; 81001; 87186; 83880; 71045; A9270

== ENCOUNTER 2019-08-15 17:14 | Inpatient (IN) | payer MEDICARE ==
[2019-08-15] MEDS ORDERED: BUMETANIDE INJ/PF 1 MG/4 ML SDV IV ONE (17:50)
--- NOTE | 2019-08-15 17:52 | ER Document Report ---
ED General - General Chief Complaint: Shortness Of Breath Stated Complaint: SHORTNESS OF BREATH Time Seen by Provider: 08/15/19 17:49 Mode of Arrival: Medic Information source: Emergency Med Personnel Notes: 74-year-old female who just was discharged from hospital with chief complaint of shortness of breath. She was found by EMS to have a 66% O2 sat after she was on the ground with her oxygen concentrator pulled out. Patient was 88% on nasal cannula but this dropped with talking. She was placed on a facemask. She has been smoking 1 pack of cigarettes daily since she was a young teenager. Darcy notes 13 August 2019 74-year-old female presented to ED for bilateral leg edema swelling and pain. 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 She does have CHF. She states this edema is caused him to be on the ventilator twice. She denies any shortness of breath chest pain any discomfort at this time. She is laying with her legs elevated at this time. She states she was just started on increase in cardiac pills water pills and she is actually feeling better now. She states her legs are now usually gets they are at this time. We will get blood urine chest x-ray and treat accordingly. Naye notes 13 August 2019 74-year-old female patient presenting to the emergency department with chief complaint of bilateral leg pain and swelling. Patient reports she has a history of idiopathic peripheral edema, states this has caused her to be on the ventilator twice. She denies any shortness of breath or chest pain. She does report increased fatigue lately. She takes [id number] "water pills" which she states have not helped her. Significant swelling noted to bilateral lower extremities with increased erythema to the right lower extremity. TRAVEL OUTSIDE OF THE [place] IN LAST 30 DAYS: No - HPI Onset: Just prior to arrival Onset/Duration: Sudden, Persistent, Better Quality of pain: No pain Severity: Moderate Pain Level: 2 Associated symptoms: Leg swelling, Shortness of breath, Weakness Exacerbated by: Movement, Walking, Coughing Relieved by: Remaining still, Other - O2 Similar symptoms previously: Yes Recently seen / treated by doctor: Yes - Related Data Allergies/Adverse Reactions: melon Allergy (Unknown, Verified 08/15/19 18:26) allopurinol [From Zyloprim] Allergy (Verified 08/15/19 18:26) amitriptyline HCl [From Elavil] Allergy (Verified 08/15/19 18:26) belladonna alkaloids [From Bellergal-S] Allergy (Verified 08/15/19 18:26) cefuroxime axetil [From Ceftin] Allergy (Verified 08/15/19 18:26) celecoxib [From Celebrex] Allergy (Verified 08/15/19 18:26) cimetidine [From Tagamet] Allergy (Verified 03/06/18 03:47) codeine [Codeine] Allergy (Verified 08/15/19 18:26) doxepin HCl [From Sinequan] Allergy (Verified 08/15/19 18:26) ergotamine tartrate [From Bellergal-S] Allergy (Verified 08/15/19 18:26) fluoxetine HCl [From Prozac] Allergy (Verified 08/15/19 18:26) hydroxyzine HCl [From Atarax] Allergy (Verified 08/15/19 18:26) indigotindisulfonic acid [From Indigo [place]] Allergy (Verified 08/15/19 18:26) malathion Allergy (Verified 08/15/19 18:26) mefenamic acid Allergy (Verified 08/15/19 18:26) Milk Containing Products Allergy (Verified 08/15/19 18:26) naproxen sodium [From Anaprox] Allergy (Verified 08/15/19 18:26) nefazodone HCl [From Serzone] Allergy (Verified 08/15/19 18:26) phenylephrine tannate [From Deconsal CT] Allergy (Verified 08/15/19 18:26) pyrilamine tannate [From Deconsal CT] Allergy (Verified 08/15/19 18:26) tolterodine tartrate [From Detrol] Allergy (Verified 08/15/19 18:26) trazodone HCl [From Desyrel] Allergy (Verified 08/15/19 18:26) morphine Adverse Reaction (Verified 08/15/19 18:26) renuzil Allergy (Uncoded 01/24/18 17:48) surgical steel Allergy (Uncoded 01/24/18 17:48) Past Medical History - General Information source: Patient, Emergency Med Personnel - Social History Smoking Status: Current Every Day Smoker Cigarette use (# per day): Yes Chew tobacco use (# tins/day): No Smoking Education Provided: Yes Frequency of alcohol use: None Drug Abuse: None Lives with: Family Family History: Reviewed & Not Pertinent, CAD, DM, Hypertension Patient has suicidal ideation: No Patient has homicidal ideation: No - Past Medical History Cardiac Medical History: Reports: Hx Congestive Heart Failure, Hx Hypertension, Hx Peripheral Vascular Disease Pulmonary Medical History: Reports: Hx COPD - on home 4L O2 [place], Hx Pneumonia, Hx Respiratory Failure Neurological Medical History: Denies: Hx Seizures Endocrine Medical History: Reports: Hx Diabetes Mellitus Type 2, Hx Hypothyr oidism - w/med noncompliance and hx of myxedema coma Renal/ Medical History: Denies: Hx Hemodialysis, Hx Peritoneal Dialysis GI Medical History: Reports: Hx Gastroesophageal Reflux Disease. Denies: Hx Crohn's Disease, Hx Ulcerative Colitis Musculoskeletal Medical History: Reports Hx Arthritis, Denies Hx Gout, Reports Hx Musculoskeletal Trauma Skin Medical History: Denies Hx Eczema, Denies Hx Psoriasis Psychiatric Medical History: Reports: Hx Depression Denies: Hx Bipolar Disorder, Hx Personality Disorder, Hx Schizoaffective Disorder Traumatic Medical History: Denies: Hx Traumatic Brain Injury Past Surgical History: Reports: Hx Cholecystectomy, Hx Orthopedic Surgery - L Wrist. Denies: Hx Hysterectomy - Immunizations Immunizations up to date: No Hx Diphtheria, Pertussis, Tetanus Vaccination: No Review of Systems - Review of Systems Constitutional: See HPI, Weakness, Recent illness EENT: No symptoms reported Cardiovascular: No symptoms reported Respiratory: See HPI, Short of breath Gastrointestinal: No symptoms reported Genitourinary: No symptoms reported Female Genitourinary: No symptoms reported Musculoskeletal: See HPI, Joint swelling, Leg swelling, Ankle swelling Skin: No symptoms reported Hematologic/Lymphatic: No symptoms reported Neurological/Psychological: See HPI, Weakness Physical Exam - Vital signs Vitals: Pulse Ox 97 08/15/19 17:20 Interpretation: Hypoxic, Tachypneic - General General appearance: Alert - HEENT Head: Normocephalic, Atraumatic Eyes: Normal Pupils: PERRL Mouth/Lips: Normal Mucous membranes: Normal Pharynx: Normal Neck: Normal - Respiratory Respiratory status: Respiratory distress Chest status: Nontender Breath sounds: Normal Chest palpation: Normal - Cardiovascular Rhythm: Regular Heart sounds: Normal auscultation Murmur: No Course - Vital Signs Vital signs: Temp Pulse Resp BP Pulse Ox 98.9 F 70 20 150/56 H 91 L 08/15/19 18:05 08/15/19 18:05 08/15/19 20:01 08/15/19 20:01 08/15/19 20:01 - Laboratory Result Diagrams: 08/15/19 17:39 08/15/19 17:39 Laboratory results interpreted by me: 08/15/19 08/15/19 08/15/19 17:36 17:39 17:39 RBC 3.26 L Hgb 8.9 L Hct 28.3 L MCHC 31.6 L RDW 17.7 H Carbonic Acid 2.61 H ABG pH 7.19 L* ABG pCO2 86.6 H* ABG pO2 42.8 L ABG HCO3 32.4 H ABG Total CO2 35.1 H ABG O2 Saturation 65.2 L Sodium 136.6 L Carbon Dioxide 33 H Anion Gap 4 L BUN 43 H Creatinine 1.52 H Est GFR ( Amer) 41 L Est GFR (MDRD) Non-Af 34 L Glucose 169 H Calcium 8.1 L NT-Pro-B Natriuret Pep Albumin 3.4 L 08/15/19 17:39 RBC Hgb Hct MCHC RDW Carbonic Acid ABG pH ABG pCO2 ABG pO2 ABG HCO3 ABG Total CO2 ABG O2 Saturation Sodium Carbon Dioxide Anion Gap BUN Creatinine Est GFR ( Amer) Est GFR (MDRD) Non-Af Glucose Calcium NT-Pro-B Natriuret Pep 5200 H Albumin - Diagnostic Test Radiology reviewed: Reports reviewed - EKG Interpretation by Me EKG shows normal: Sinus rhythm Critical Care Note - Critical Care Note Total time excluding time spent on procedures (mins): 90 Comments: I spoke with Dr. Gillette at 1926 and he advises IMCU Discharge - Discharge Clinical Impression: Dyspnea and respiratory abnormalities, Hypercapnia, Acute respiratory failure with hypercapnia, COPD exacerbation Congestive heart failure Qualifiers: Heart failure type: unspecified Heart failure chronicity: acute on chronic Qualified Code(s): I50.9 - Heart failure, unspecified Condition: Fair Disposition: ADMITTED INPATIENT Admitting Provider: Nain Unit Admitted: [facility]
[2019-08-15] MEDS ORDERED: NITROFURANTOIN MONOHYD/M-CRYST 100 MG CAPSULE PO ONE (18:02)
[2019-08-15 18:07] LABS: ABSOLUTE EOSINOPHILS # (AUTO) 0.1 10^3/uL (0.0-0.6); ABSOLUTE LYMPHOCYTES (AUTO) 1.7 10^3/uL (0.5-4.7); ABSOLUTE NEUT (AUTO) 5.9 10^3/uL (1.7-8.2); BASOPHILS % (AUTO) 0.5 % (0-2); EOSINOPHILS % (AUTO) 1.4 % (0-6); HEMATOCRIT 28.3 % (36.0-47.0); HEMOGLOBIN 8.9 g/dL (12.0-15.5); LYMPHOCYTES % (AUTO) 19.1 % (13-45); MEAN CORPUSCULAR HEMOGLOBIN 27.4 pg (27.0-33.4); MEAN CORPUSCULAR HGB CONC 31.6 g/dL (32.0-36.0); MEAN CORPUSCULAR VOLUME 87 fl (80-97); PLATELET COUNT 156 10^3/uL (150-450); RED BLOOD COUNT 3.26 10^6/uL (3.72-5.28); RED CELL DISTRIBUTION WIDTH 17.7 % (11.5-14.0); TOTAL CELLS COUNTED % (AUTO) 100 %; WHITE BLOOD COUNT 8.6 10^3/uL (4.0-10.5)
[2019-08-15 18:20] LABS: INTERNATIONAL RATION (INR) 1.17
[2019-08-15 18:21] LABS: PARTIAL THROMBOPLASTIN TIME 29.3 SEC (23.5-35.8)
[2019-08-15 18:24] LABS: ALBUMIN 3.4 g/dL (3.5-5.0); ALKALINE PHOSPHATASE 74 U/L (38-126); ASPARTATE AMINO TRANSFERASE 22 U/L (14-36); BILIRUBIN,DIRECT 0.1 mg/dL (0.0-0.4); BILIRUBIN,TOTAL 0.4 mg/dL (0.2-1.3); BLOOD UREA NITROGEN 43 mg/dL (7-20); CALCIUM 8.1 mg/dL (8.4-10.2); CARBON DIOXIDE 33 mmol/L (22-30); CHLORIDE 100 mmol/L (98-107); GLUCOSE 169 mg/dL (75-110); TOTAL PROTEIN 6.8 g/dL (6.3-8.2)
[2019-08-15 18:27] LABS: ANION GAP 4 (5-19)
[2019-08-15 18:36] LABS: NT PRO BNP 5200 pg/mL (<125)
--- NOTE | 2019-08-15 18:37 | RADIOLOGY REPORT (SQ) ---
EXAM DESCRIPTION: CHEST SINGLE VIEW IMAGES COMPLETED DATE/TIME: 08/15/2019 5:58 pm REASON FOR STUDY: sob COMPARISON: 08/13/2019 EXAM PARAMETERS: NUMBER OF VIEWS: One view. TECHNIQUE: Single frontal radiographic view of the chest acquired. RADIATION DOSE: NA LIMITATIONS: None. FINDINGS: LUNGS AND PLEURA: Pulmonary edema. Small right pleural effusion. MEDIASTINUM AND HILAR STRUCTURES: No masses. Contour normal. HEART AND VASCULAR STRUCTURES: Cardiomegaly. BONES: No acute findings. HARDWARE: None in the chest. OTHER: No other significant finding. IMPRESSION: Cardiomegaly with pulmonary edema. Minimal right pleural effusion PE TECHNICAL DOCUMENTATION: JOB ID: [id number] 2010 [employer]- All Rights Reserved Reading location - IP/workstation name: [email or web address]
[2019-08-15 18:38] LABS: TROPONIN I < 0.012 ng/mL
[2019-08-15 19:09] LABS: ARTERIAL BLOOD BASE EXCESS 0.6 mmol/L; ARTERIAL BLOOD H2CO3 2.61 mmol/L (1.05-1.35); ARTERIAL BLOOD HCO3 32.4 mmol/L (20-24); ARTERIAL BLOOD O2 SATURATION 65.2 % (94-98); ARTERIAL BLOOD PO2 42.8 mmHg (80-100); ARTERIAL BLOOD TOTAL CO2 35.1 mmol/L (21-25)
[2019-08-15 19:14] LABS: ARTERIAL BLOOD FIO2 10
[2019-08-15 19:16] LABS: ARTERIAL BLOOD PCO2 86.6 mmHg (35-45); ARTERIAL BLOOD PH 7.19 (7.35-7.45)
[2019-08-15] MEDS ORDERED: NORMAL SALINE 1000 ML 1,000 ML IV PRN (20:15)
[2019-08-15 21:20] LABS: APPEARANCE,URINE CLOUDY; BILIRUBIN,URINE NEGATIVE (NEGATIVE); COLOR,URINE YELLOW; GLUCOSE, URINE NEGATIVE (NEGATIVE); KETONES,URINE NEGATIVE (NEGATIVE); LEUKOCYTE ESTERASE,URINE LARGE (NEGATIVE); NITRITE,URINE POSITIVE (NEGATIVE); PROTEIN,URINE 100 mg/dL (NEGATIVE); URINE SPECIFIC GRAVITY 1.011; UROBILINOGEN,URINE NEGATIVE mg/dL (<2.0)
[2019-08-15 21:56] LABS: URINE AMPHETAMINES SCREEN NEGATIVE; URINE BARBITURATES SCREEN NEGATIVE; URINE BENZODIAZEPINES SCREEN NEGATIVE; URINE COCAINE SCREEN NEGATIVE; URINE MARIJUANA (THC) SCREEN NEGATIVE; URINE METHADONE SCREEN NEGATIVE; URINE PHENCYCLIDINE SCREEN NEGATIVE
--- NOTE | 2019-08-15 22:13 | EKG REPORT ---
SEVERITY:- ABNORMAL ECG - SINUS RHYTHM VENTRICULAR BIGEMINY BORDERLINE RIGHT AXIS DEVIATION BORDERLINE T WAVE ABNORMALITIES : Confirmed by: Nidhi Frank MD 15-Aug-2019 22:12:38
[2019-08-15 22:58] LABS: INTERNATIONAL RATION (INR) 1.16; PARTIAL THROMBOPLASTIN TIME 28.1 SEC (23.5-35.8); PROTHROMBIN TIME 14.9 SEC (11.4-15.4)
[2019-08-15] MEDS: ENOXAPARIN SODIUM INJ 40 MG/0.4 ML DISP.SYRIN SUBCUT SCH (22:59)
[2019-08-15] MEDS ORDERED: IPRATROPIUM/ALBUTEROL 0.5-2.5 MG/3 ML AMPUL NEB PRN (23:33)
[2019-08-15 23:37] LABS: PHOSPHORUS 4.3 mg/dL (2.5-4.5)
[2019-08-15] MEDS ORDERED: INSULIN GLARGINE,HUM.REC.ANLOG 1,000 UNIT/10 ML VIAL (PYX) SUBCUT ONE (23:45)
[2019-08-15] MEDS ORDERED: BUSPIRONE HCL 10 MG TABLET PO ONE (23:45)
[2019-08-15 23:48] LABS: CREATINE KINASE MB 1.01 ng/mL (<4.55); TROPONIN I 0.015 ng/mL
[2019-08-16 05:43] LABS: HEMATOCRIT 32.4 % (36.0-47.0); MEAN CORPUSCULAR HEMOGLOBIN 26.8 pg (27.0-33.4); MEAN CORPUSCULAR HGB CONC 30.8 g/dL (32.0-36.0); MEAN CORPUSCULAR VOLUME 87 fl (80-97); PLATELET COUNT 169 10^3/uL (150-450); RED BLOOD COUNT 3.72 10^6/uL (3.72-5.28); RED CELL DISTRIBUTION WIDTH 17.6 % (11.5-14.0)
[2019-08-16] MEDS ORDERED: LEVOTHYROXINE SODIUM 0.1 MG TABLET PO SCH (06:00)
[2019-08-16 06:04] LABS: ABSOLUTE LYMPHOCYTES# (MANUAL) 0.7 10^3/uL (0.5-4.7); ABSOLUTE MONOCYTES # (MANUAL) 0.2 10^3/uL (0.1-1.4); BAND NEUTROPHILS % (MANUAL) 5 % (3-5); BASOPHILS % (MANUAL) 0 % (0-2); EOSINOPHILS % (MANUAL) 0 % (0-6); LYMPHOCYTES % (MANUAL) 9 % (13-45); MONOCYTES % (MANUAL) 2 % (3-13); SEGMENTED NEUTROPHILS % (MAN) 84 % (42-78); TOTAL CELLS COUNTED 100
[2019-08-16 06:05] LABS: ANISOCYTOSIS 1+; HYPOCHROMASIA 1+; OVALOCYTES 1+; PLATELET COMMENT ADEQUATE; POLYCHROMASIA 1+
[2019-08-16 06:17] LABS: ALBUMIN 3.8 g/dL (3.5-5.0); ALKALINE PHOSPHATASE 74 U/L (38-126); ANION GAP 10 (5-19); ASPARTATE AMINO TRANSFERASE 26 U/L (14-36); BILIRUBIN,DIRECT 0.2 mg/dL (0.0-0.4); BILIRUBIN,TOTAL 0.5 mg/dL (0.2-1.3); BLOOD UREA NITROGEN 42 mg/dL (7-20); CALCIUM 8.7 mg/dL (8.4-10.2); CARBON DIOXIDE 28 mmol/L (22-30); CHLORIDE 101 mmol/L (98-107); CHOLESTEROL 115.15 mg/dL (0-200); GLUCOSE 208 mg/dL (75-110); POTASSIUM 5.2 mmol/L (3.6-5.0); TOTAL PROTEIN 7.4 g/dL (6.3-8.2); TRIGLYCERIDES 64 mg/dL (<150)
[2019-08-16 06:19] LABS: FREE T4 (FREE THYROXINE) 1.6 ng/dL (0.78-2.19)
[2019-08-16 06:28] LABS: DIRECT LDL 60 mg/dL (<100)
[2019-08-16 06:29] LABS: CREATINE KINASE MB 0.94 ng/mL (<4.55); TROPONIN I < 0.012 ng/mL
[2019-08-16 06:30] LABS: AMYLASE < 30 U/L (30-110)
[2019-08-16 06:33] LABS: THYROID STIMULATING HORMONE 0.47 uIU/mL (0.47-4.68)
[2019-08-16 06:55] LABS: ARTERIAL BLOOD BASE EXCESS 3.4 mmol/L; ARTERIAL BLOOD H2CO3 1.97 mmol/L (1.05-1.35); ARTERIAL BLOOD HCO3 31.2 mmol/L (20-24); ARTERIAL BLOOD O2 SATURATION 98.2 % (94-98); ARTERIAL BLOOD PCO2 65.5 mmHg (35-45); ARTERIAL BLOOD PO2 130.3 mmHg (80-100); ARTERIAL BLOOD TOTAL CO2 33.2 mmol/L (21-25)
[2019-08-16] MEDS: FUROSEMIDE 40 MG TABLET PO SCH (09:00)
[2019-08-16] MEDS: IPRATROPIUM/ALBUTEROL 0.5-2.5 MG/3 ML AMPUL NEB PRN ×2 (09:22→21:22)
[2019-08-16] MEDS ORDERED: DEXTROSE 50%-WATER SYRINGE 12.5 GM/25 ML DOSE IV PRN (10:00)
[2019-08-16] MEDS ORDERED: DEXTROSE 40% GEL 15 GM TUBE X 2 PO PRN (10:00)
[2019-08-16] MEDS ORDERED: LEVOTHYROXINE SODIUM 0.1 MG TABLET PO ONE (10:00)
[2019-08-16] MEDS ORDERED: GLUCAGON,HUMAN RECOMB 1 MG INJ IM PRN (10:00)
[2019-08-16] MEDS ORDERED: DEXTROSE 40% GEL 15 GM TUBE PO PRN (10:00)
[2019-08-16] MEDS ORDERED: DEXTROSE 50%-WATER SYRINGE 25 GM/50 ML DOSE IV PRN (10:00)
[2019-08-16] MEDS: SITAGLIPTIN PHOSPHATE 50 MG TABLET PO SCH (10:43)
[2019-08-16] MEDS: LOSARTAN POTASSIUM 25 MG TABLET PO SCH (10:43)
[2019-08-16] MEDS: DULOXETINE HCL 30 MG CAPSULE.DR PO SCH (10:43)
[2019-08-16] MEDS: BUSPIRONE HCL 10 MG TABLET PO SCH ×2 (10:44→22:55)
[2019-08-16] MEDS: FLUTICASONE/UMECLIDIN/VILANTER 100-62.5-25 MCG/DOSE IH SCH (10:44)
[2019-08-16 11:29] LABS: TROPONIN I < 0.012 ng/mL
[2019-08-16] MEDS: INSULIN LISPRO 100 UNIT/ML 3 ML VIAL SUBCUT SCH ×3 (11:30→21:37)
[2019-08-16] MEDS: OXYCODONE-ACETAMINOPHEN 5-325 MG TABLET PO PRN (13:14)
--- NOTE | 2019-08-16 14:47 | PDOC H&P ---
History of Present Illness Admission Date/PCP: 08/15/19 19:59 JEN MAE MD History of Present Illness: GABINO ALEXANDER is a 74 year old female, She has a history of progressive joshua ntia, chronic obstructive pulmonary disease with secondary severe pulmonary hypertension associated with chronic venous hypertension of the lower extremities.She came to the emergency room for evaluation of shortness of breath, lower extremity edema ,arterial blood gas was done pH 7.19 PO2 42.8, PCO 2 86.6, bicarbonate 32.4, patient required noninvasive positive pressure ventilation, BiPAP to support breathing.Patient presented in a similar fashion the last time she was admitted and discharged from this hospital she was recently discharged on July 29, 2019 on that admission a transthoracic echo cardiogram was done that demonstrated preserved ejection fraction of left ventricle there was no diastolic dysfunction on the basis of Doppler assessment but she was found to have severe pulmonary hypertension. She is supposed to be on lifelong oxygen and it was recommended very strongly that she obtain a noninvasive positive pressure ventilation device BiPAP or CPAP to have this device she will need to have a sleep study she was supposed to follow-up in the office so that we can arrange a sleep study but she never did.She also have severe osteoarthritis of both knees Past Medical History Cardiac Medical History: Reports: Hypertension, Peripheral Vascular Disease, Other - Severe pulmonary hypertension Pulmonary Medical History: Reports: Chronic Obstructive Pulmonary Disease (COPD) - on home 4L O2 [place], Pneumonia, Respiratory Failure Endocrine Medical History: Reports: Diabetes Mellitus Type 2, Hypothyroidism - w/med noncompliance and hx of myxedema coma GI Medical History: Reports: Gastroesophageal Reflux Disease Musculoskeltal Medical History: Reports: Arthritis Psychiatric Medical History: Reports: Dementia, Depression Past Surgical History Past Surgical History: Reports: Cholecystectomy, Orthopedic Surgery - L Wrist Social History Lives with: Family Smoking Status: Former Smoker Frequency of Alcohol Use: None Hx Recreational Drug Use: No Drugs: None Hx Prescription Drug Abuse: No Family History Family History: Reviewed & Not Pertinent, CAD, DM, Hypertension Parental Family History Reviewed: Yes Children Family History Reviewed: Yes Sibling(s) Family History Reviewed.: Yes Medication/Allergy Home Medications: RX: Acetaminophen [Tylenol 325 mg Tablet] 325 mg PO Q4HP PRN 12/20/18 RX: Ipratropium/Albuterol Sulfate [Duoneb 3 ml Ampul] 3 ml NEB Q6 PRN 12/21/18 RX: Buspirone HCl [Buspar 10 mg Tablet] 10 mg PO Q12 #60 12/31/18 RX: Duloxetine HCl [Cymbalta 30 mg Capsule.dr] 60 mg PO DAILY #30 12/31/18 RX: Insulin Glargine,Hum.rec.anlog [Lantus (Pyxis) Insulin 100 Unit/1 ml 10 ml] 30 units SUBCUT QHS #2 unit 12/31/18 RX: Sitagliptin Phosphate [Januvia 50 mg Tablet] 100 mg PO DAILY #30 12/31/18 RX: Fluticasone/Umeclidin/Vilanter [Trelegy 100-62.5-25 Mcg Ellipta 14 Dose/Dpi] 1 puff IH DAILY 07/14/19 RX: Levothyroxine Sodium [Synthroid] 250 mcg PO Q6AM 07/14/19 RX: Losartan Potassium [Cozaar 25 mg Tablet] 25 mg PO DAILY #90 tablet 07/21/19 Furosemide [Lasix 40 mg Tablet] 40 mg PO QAM #7 tablet 08/13/19 Allergies/Adverse Reactions: melon Allergy (Unknown, Verified 08/15/19 18:26) allopurinol [From Zyloprim] Allergy (Verified 08/15/19 18:26) amitriptyline HCl [From Elavil] Allergy (Verified 08/15/19 18:26) belladonna alkaloids [From Bellergal-S] Allergy (Verified 08/15/19 18:26) cefuroxime axetil [From Ceftin] Allergy (Verified 08/15/19 18:26) celecoxib [From Celebrex] Allergy (Verified 08/15/19 18:26) cimetidine [From Tagamet] Allergy (Verified 03/06/18 03:47) codeine [Codeine] Allergy (Verified 08/15/19 18:26) doxepin HCl [From Sinequ[place]] Allergy (Verified 08/15/19 18:26) ergotamine tartrate [From Bellergal-S] Allergy (Verified 08/15/19 18:26) fluoxetine HCl [From Prozac] Allergy (Verified 08/15/19 18:26) hydroxyzine HCl [From Atarax] Allergy (Verified 08/15/19 18:26) indigotindisulfonic acid [From Indigo [place]] Allergy (Verified 08/15/19 18:26) malathion Allergy (Verified 08/15/19 18:26) mefenamic acid Allergy (Verified 08/15/19 18:26) Milk Containing Products Allergy (Verified 08/15/19 18:26) naproxen sodium [From Anaprox] Allergy (Verified 08/15/19 18:26) nefazodone HCl [From Serzone] Allergy (Verified 08/15/19 18:26) phenylephrine tannate [From Deconsal CT] Allergy (Verified 08/15/19 18:26) pyrilamine tannate [From Decons[place] CT] Allergy (Verified 08/15/19 18:26) tolterodine tartrate [From Detrol] Allergy (Verified 08/15/19 18:26) trazodone HCl [From Desyrel] Allergy (Verified 08/15/19 18:26) morphine Adverse Reaction (Verified 08/15/19 18:) renuzil Allergy (Uncoded 01/24/18 17:48) surgical steel Allergy (Uncoded 01/24/18 17:48) Review of Systems Constitutional: ABSENT: chills, fever(s), headache(s), weight gain, weight loss Eyes: ABSENT: visual disturbances Ears: ABSENT: hearing changes Cardiovascular: PRESENT: edema. ABSENT: chest pain, dyspnea on exertion, orthropnea, palpitations Respiratory: PRESENT: cough, dyspnea Gastrointestinal: ABSENT: abdominal pain, constipation, diarrhea, hematemesis, hematochezia, nausea, vomiting Genitourinary: ABSENT: dysuria, hematuria Musculoskeletal: ABSENT: joint swelling Integumentary: ABSENT: rash, wounds Neurological: ABSENT: abnormal gait, abnormal speech, confusion, dizziness, focal weakness, syncope Psychiatric: ABSENT: anxiety, depression, homidical ideation, suicidal ideation Endocrine: ABSENT: cold intolerance, heat intolerance, menstrual abnormalities, polydipsia, polyuria Hematologic/Lymphatic: ABSENT: easy bleeding, easy bruising, lymphadenopathy Physical Exam Vital Signs: Temp Pulse Resp BP Pulse Ox 97.5 F 69 24 H 131/51 H 89 L 08/16/19 11:05 08/16/19 11:05 08/16/19 11:05 08/16/19 11:05 08/16/19 11:05 Intake & Output 08/15/19 08/16/19 08/17/19 06:59 06:59 06:59 Intake Total 0 Output Total 0 Balance 0 Weight 87.2 kg General appearance: PRESENT: obese Head exam: PRESENT: atraumatic, normocephalic Eye exam: PRESENT: PERRLA Mouth exam: PRESENT: moist, tongue midline Neck exam: PRESENT: full ROM Respiratory exam: PRESENT: clear to auscultation oh Cardiovascular exam: PRESENT: RRR, +S1, +S2 Pulses: PRESENT: normal dorsalis pedis pul, +2 pedal pulses bilateral Vascular exam: PRESENT: normal capillary refill GI/Abdominal exam: PRESENT: normal bowel sounds, soft Rectal exam: PRESENT: deferred Extremities exam: PRESENT: pedal edema Neurological exam: PRESENT: alert. ABSENT: motor sensory deficit Psychiatric exam: PRESENT: appropriate affect, normal mood Skin exam: PRESENT: dry, intact, warm Results Laboratory Results: 08/16/19 05:00 08/16/19 05:00 08/15/19 08/15/19 08/15/19 17:36 17:39 17:39 WBC 8.6 RBC 3.26 L Hgb 8.9 L Hct 28.3 L MCV 87 MCH 27.4 MCHC 31.6 L RDW 17.7 H Plt Count 156 Seg Neutrophils % 68.0 Carbonic Acid 2.61 H HCO3/H2CO3 Ratio 12:1 ABG pH 7.19 L* ABG pCO2 86.6 H* ABG pO2 42.8 L ABG HCO3 32.4 H ABG O2 Saturation 65.2 L ABG Base Excess 0.6 FiO2 10 Sodium 136.6 L Potassium 5.0 Chloride 100 Carbon Dioxide 33 H Anion Gap 4 L BUN 43 H Creatinine 1.52 H Est GFR ( Amer) 41 L Glucose 169 H Calcium 8.1 L Phosphorus Magnesium Total Bilirubin 0.4 AST 22 Alkaline Phosphatase 74 Total Protein 6.8 Albumin 3.4 L Triglycerides Cholesterol LDL Cholesterol Direct VLDL Cholesterol HDL Cholesterol Amylase Lipase TSH Free T4 Urine Color Urine Appearance Urine pH Ur Specific [place] Urine Protein Urine Glucose (UA) Urine Ketones Urine Blood Urine Nitrite Ur Leukocyte Esterase Urine WBC (Auto) Urine RBC (Auto) 08/15/19 08/15/19 08/16/19 20:50 23:15 05:00 WBC 8.0 RBC 3.72 Hgb 10.0 L Hct 32.4 L MCV 87 MCH 26.8 L MCHC 30.8 L RDW 17.6 H Plt Count 169 Seg Neutrophils % Not Reportable Carbonic Acid HCO3/H2CO3 Ratio ABG pH ABG pCO2 ABG pO2 ABG HCO3 ABG O2 Saturation ABG Base Excess FiO2 Sodium Potassium Chloride Carbon Dioxide Anion Gap BUN Creatinine Est GFR ( Amer) Glucose Calcium Phosphorus 4.3 Magnesium 2.1 Total Bilirubin AST Alkaline Phosphatase Total Protein Albumin Triglycerides Cholesterol LDL Cholesterol Direct VLDL Cholesterol HDL Cholesterol Amylase Lipase TSH Free T4 Urine Color YELLOW Urine Appearance CLOUDY Urine pH 5.0 Ur Specific [place] 1.011 Urine Protein 100 H Urine Glucose (UA) NEGATIVE Urine Ketones NEGATIVE Urine Blood MODERATE H Urine Nitrite POSITIVE H Ur Leukocyte Esterase LARGE H Urine WBC (Auto) 63 Urine RBC (Auto) 15 08/16/19 08/16/19 08/16/19 05:00 05:00 06:23 WBC RBC Hgb Hct MCV MCH MCHC RDW Plt Count Seg Neutrophils % Carbonic Acid 1.97 H HCO3/H2CO3 Ratio 15:1 ABG pH 7.30 L ABG pCO2 65.5 H ABG pO2 130.3 H ABG HCO3 31.2 H ABG O2 Saturation 98.2 H ABG Base Excess 3.4 FiO2 55% Sodium 138.5 Potassium 5.2 H Chloride 101 Carbon Dioxide 28 Anion Gap 10 BUN 42 H Creatinine 1.36 H Est GFR ( Amer) 46 L Glucose 208 H Calcium 8.7 Phosphorus Magnesium Total Bilirubin 0.5 AST 26 Alkaline Phosphatase 74 Total Protein 7.4 Albumin 3.8 Triglycerides 64 Cholesterol 115.15 LDL Cholesterol Direct 60 VLDL Cholesterol 13.0 HDL Cholesterol 48 Amylase < 30 L Lipase 14.9 L TSH 0.47 Free T4 1.60 Urine Color Urine Appearance Urine pH Ur Specific [place] Urine Protein Urine Glucose (UA) Urine Ketones Urine Blood Urine Nitrite Ur Leukocyte Esterase Urine WBC (Auto) Urine RBC (Auto) 08/15/19 08/15/19 08/15/19 17:39 23:15 23:15 Creatine Kinase 26 L CK-MB (CK-2) 1.01 Troponin I < 0.012 0.015 NT-Pro-B Natriuret Pep 5200 H 08/16/19 08/16/19 08/16/19 05:00 05:00 10:49 Creatine Kinase 32 29 L CK-MB (CK-2) 0.94 Troponin I < 0.012 NT-Pro-B Natriuret Pep 08/16/19 10:49 Creatine Kinase CK-MB (CK-2) 1.10 Troponin I < 0.012 NT-Pro-B Natriuret Pep Impressions: Chest X-Ray 08/15/19 17:49 IMPRESSION: Cardiomegaly with pulmonary edema. Minimal right pleural effusion PE Assessment & Plan - Diagnosis (1) Acute respiratory failure with hypoxia and hypercarbia Is this a current diagnosis for this admission?: Yes Plan: Patient requires noninvasive positive pressure ventilation, BiPAP She has severe respiratory acidosis with associated hypoxemia (2) Severe pulmonary arterial systolic hypertension Is this a current diagnosis for this admission?: Yes Plan: Continue oxygen therapy (3) Arthropathy of knee Is this a current diagnosis for this admission?: Yes Plan: This is from osteoarthritis of the knee (4) Chronic obstructive pulmonary disease (COPD) Qualifiers: COPD type: unspecified COPD Is this a current diagnosis for this admission?: Yes (5) Dementia Qualifiers: Dementia type: Alzheimer's disease Alzheimer's disease onset: late-onset Dementia behavioral disturbance: without behavioral disturbance Qualified Code(s): G30.1 - Alzheimer's disease with late onset; F02.80 - Dementia in other diseases classified elsewhere without behavioral disturbance Is this a current diagnosis for this admission?: Yes (6) Hypothyroidism Qualifiers: Hypothyroidism type: unspecified Is this a current diagnosis for this admission?: Yes Plan: Continue hormone replacement therapy (7) Type 2 diabetes mellitus Qualifiers: Diabetes mellitus correction insulin use: without long term care phlebotomist use Diabetes mellitus complication status: with neurologic complications Diabetes mellitus complication detail: with polyneuropathy Qualified Code(s): E11.42 - Type 2 diabetes mellitus with diabetic polyneuropathy Is this a current diagnosis for this admission?: Yes Plan: continue treatment
--- NOTE | 2019-08-16 15:21 | PDOC PROGRESS REPORT ---
Subjective Progress Note for:: 08/16/19 Subjective:: Patient seen by the bedside, she is more alert oriented to time place and person, no longer requiring BiPAP presently on nasal cannula, complain of pain of both knees Reason For Visit: ACUTE HYPERCAPNIC RESPIRATORY FAILURE Physical Exam Vital Signs: Temp Pulse Resp BP Pulse Ox 97.5 F 69 24 H 131/51 H 89 L 08/16/19 11:05 08/16/19 11:05 08/16/19 11:05 08/16/19 11:05 08/16/19 11:05 Intake & Output 08/15/19 08/16/19 08/17/19 06:59 06:59 06:59 Intake Total 0 Output Total 0 Balance 0 Weight 87.2 kg General appearance: PRESENT: no acute distress Eye exam: PRESENT: PERRLA Respiratory exam: PRESENT: clear to auscultation oh Cardiovascular exam: PRESENT: +S1, +S2 GI/Abdominal exam: PRESENT: soft Neurological exam: PRESENT: alert Results Laboratory Results: 08/16/19 05:00 08/16/19 05:00 08/15/19 08/15/19 08/15/19 17:36 17:39 17:39 WBC 8.6 RBC 3.26 L Hgb 8.9 L Hct 28.3 L MCV 87 MCH 27.4 MCHC 31.6 L RDW 17.7 H Plt Count 156 Seg Neutrophils % 68.0 Carbonic Acid 2.61 H HCO3/H2CO3 Ratio 12:1 ABG pH 7.19 L* ABG pCO2 86.6 H* ABG pO2 42.8 L ABG HCO3 32.4 H ABG O2 Saturation 65.2 L ABG Base Excess 0.6 FiO2 10 Sodium 136.6 L Potassium 5.0 Chloride 100 Carbon Dioxide 33 H Anion Gap 4 L BUN 43 H Creatinine 1.52 H Est GFR ( Amer) 41 L Glucose 169 H Calcium 8.1 L Phosphorus Magnesium Total Bilirubin 0.4 AST 22 Alkaline Phosphatase 74 Total Protein 6.8 Albumin 3.4 L Triglycerides Cholesterol LDL Cholesterol Direct VLDL Cholesterol HDL Cholesterol Amylase Lipase TSH Free T4 Urine Color Urine Appearance Urine pH Ur Specific [place] Urine Protein Urine Glucose (UA) Urine Ketones Urine Blood Urine Nitrite Ur Leukocyte Esterase Urine WBC (Auto) Urine RBC (Auto) 08/15/19 08/15/19 08/16/19 20:50 23:15 05:00 WBC 8.0 RBC 3.72 Hgb 10.0 L Hct 32.4 L MCV 87 MCH 26.8 L MCHC 30.8 L RDW 17.6 H Plt Count 169 Seg Neutrophils % Not Reportable Carbonic Acid HCO3/H2CO3 Ratio ABG pH ABG pCO2 ABG pO2 ABG HCO3 ABG O2 Saturation ABG Base Excess FiO2 Sodium Potassium Chloride Carbon Dioxide Anion Gap BUN Creatinine Est GFR ( Amer) Glucose Calcium Phosphorus 4.3 Magnesium 2.1 Total Bilirubin AST Alkaline Phosphatase Total Protein Albumin Triglycerides Cholesterol LDL Cholesterol Direct VLDL Cholesterol HDL Cholesterol Amylase Lipase TSH Free T4 Urine Color YELLOW Urine Appearance CLOUDY Urine pH 5.0 Ur Specific [place] 1.011 Urine Protein 100 H Urine Glucose (UA) NEGATIVE Urine Ketones NEGATIVE Urine Blood MODERATE H Urine Nitrite POSITIVE H Ur Leukocyte Esterase LARGE H Urine WBC (Auto) 63 Urine RBC (Auto) 15 08/16/19 08/16/19 08/16/19 05:00 05:00 06:23 WBC RBC Hgb Hct MCV MCH MCHC RDW Plt Count Seg Neutrophils % Carbonic Acid 1.97 H HCO3/H2CO3 Ratio 15:1 ABG pH 7.30 L ABG pCO2 65.5 H ABG pO2 130.3 H ABG HCO3 31.2 H ABG O2 Saturation 98.2 H ABG Base Excess 3.4 FiO2 55% Sodium 138.5 Potassium 5.2 H Chloride 101 Carbon Dioxide 28 Anion Gap 10 BUN 42 H Creatinine 1.36 H Est GFR ( Amer) 46 L Glucose 208 H Calcium 8.7 Phosphorus Magnesium Total Bilirubin 0.5 AST 26 Alkaline Phosphatase 74 Total Protein 7.4 Albumin 3.8 Triglycerides 64 Cholesterol 115.15 LDL Cholesterol Direct 60 VLDL Cholesterol 13.0 HDL Cholesterol 48 Amylase < 30 L Lipase 14.9 L TSH 0.47 Free T4 1.60 Urine Color Urine Appearance Urine pH Ur Specific [place] Urine Protein Urine Glucose (UA) Urine Ketones Urine Blood Urine Nitrite Ur Leukocyte Esterase Urine WBC (Auto) Urine RBC (Auto) 08/15/19 08/15/19 08/15/19 17:39 23:15 23:15 Creatine Kinase 26 L CK-MB (CK-2) 1.01 Troponin I < 0.012 0.015 NT-Pro-B Natriuret Pep 5200 H 08/16/19 08/16/19 08/16/19 05:00 05:00 10:49 Creatine Kinase 32 29 L CK-MB (CK-2) 0.94 Troponin I < 0.012 NT-Pro-B Natriuret Pep 08/16/19 10:49 Creatine Kinase CK-MB (CK-2) 1.10 Troponin I < 0.012 NT-Pro-B Natriuret Pep Impressions: Chest X-Ray 08/15/19 17:49 IMPRESSION: Cardiomegaly with pulmonary edema. Minimal right pleural effusion PE Assessment & Plan - Diagnosis (1) Acute respiratory failure with hypoxia and hypercarbia Is this a current diagnosis for this admission?: Yes Plan: Continue present treatment (2) Severe pulmonary arterial systolic hypertension Is this a current diagnosis for this admission?: Yes (3) Arthropathy of knee Is this a current diagnosis for this admission?: Yes Plan: percocet for pain (4) Chronic obstructive pulmonary disease (COPD) Qualifiers: COPD type: unspecified COPD Is this a current diagnosis for this admission?: Yes (5) Dementia Qualifiers: Dementia type: Alzheimer's disease Alzheimer's disease onset: late-onset Dementia behavioral disturbance: without behavioral disturbance Qualified Code(s): G30.1 - Alzheimer's disease with late onset; F02.80 - Dementia in other diseases classified elsewhere without behavioral disturbance Is this a current diagnosis for this admission?: Yes (6) Hypothyroidism Qualifiers: Hypothyroidism type: unspecified Is this a current diagnosis for this admission?: Yes (7) Type 2 diabetes mellitus Qualifiers: Diabetes mellitus halfway insulin use: without halfway use Diabetes mellitus complication status: with neurologic complications Diabetes mellitus complication detail: with polyneuropathy Qualified Code(s): E11.42 - Type 2 diabetes mellitus with diabetic polyneuropathy Is this a current diagnosis for this admission?: Yes (8) Lower extremity edema Is this a current diagnosis for this admission?: Yes Plan: Order venous Doppler of both legs - Time Time Spent with patient: 35 or more minutes Level of Care: IMCU
[2019-08-16] MEDS ORDERED: DILTIAZEM HCL 60 MG TABLET PO ONE (20:30)
[2019-08-16 21:07] LABS: ARTERIAL BLOOD BASE EXCESS 5.5 mmol/L; ARTERIAL BLOOD H2CO3 2.25 mmol/L (1.05-1.35); ARTERIAL BLOOD O2 SATURATION 91.3 % (94-98); ARTERIAL BLOOD PH 7.28 (7.35-7.45); ARTERIAL BLOOD PO2 70.7 mmHg (80-100); ARTERIAL BLOOD TOTAL CO2 36.3 mmol/L (21-25)
[2019-08-16 21:09] LABS: ARTERIAL BLOOD FIO2 40%
[2019-08-16 21:10] LABS: ARTERIAL BLOOD PCO2 74.7 mmHg (35-45)
[2019-08-16] MEDS ORDERED: HYDRALAZINE HCL INJ/PF 20 MG/1 ML SDV IV PRN (21:10)
[2019-08-16 22:35] LABS: ANION GAP 6 (5-19); BLOOD UREA NITROGEN 49 mg/dL (7-20); CALCIUM 8.5 mg/dL (8.4-10.2); CARBON DIOXIDE 31 mmol/L (22-30); CHLORIDE 100 mmol/L (98-107); GLUCOSE 125 mg/dL (75-110); POTASSIUM 5.3 mmol/L (3.6-5.0)
[2019-08-16] MEDS: ENOXAPARIN SODIUM INJ 40 MG/0.4 ML DISP.SYRIN SUBCUT SCH (22:55)
[2019-08-16] MEDS: INSULIN GLARGINE,HUM.REC.ANLOG 1,000 UNIT/10 ML VIAL SUBCUT SCH (22:55)
[2019-08-16] MEDS ORDERED: FUROSEMIDE INJ/PF 40 MG/4 ML SDV IV ONE (23:03)
[2019-08-16 23:06] LABS: ARTERIAL BLOOD BASE EXCESS 4.7 mmol/L; ARTERIAL BLOOD HCO3 32.7 mmol/L (20-24); ARTERIAL BLOOD PH 7.29 (7.35-7.45); ARTERIAL BLOOD PO2 63.9 mmHg (80-100); ARTERIAL BLOOD TOTAL CO2 34.8 mmol/L (21-25)
[2019-08-16 23:10] LABS: ARTERIAL BLOOD FIO2 40%
[2019-08-16 23:11] LABS: ARTERIAL BLOOD PCO2 69.8 mmHg (35-45)
[2019-08-16] MEDS ORDERED: FUROSEMIDE INJ/PF 40 MG/4 ML SDV ONE (23:17)
[2019-08-17] MEDS: DILTIAZEM HCL 60 MG TABLET PO SCH ×4 (00:36→18:30)
[2019-08-17 05:10] LABS: ABSOLUTE BASOPHILS # (AUTO) 0.1 10^3/uL (0.0-0.2); ABSOLUTE LYMPHOCYTES (AUTO) 1.8 10^3/uL (0.5-4.7); ABSOLUTE MONOCYTES (AUTO) 0.9 10^3/uL (0.1-1.4); ABSOLUTE NEUT (AUTO) 8.6 10^3/uL (1.7-8.2); BASOPHILS % (AUTO) 0.5 % (0-2); EOSINOPHILS % (AUTO) 0.3 % (0-6); HEMATOCRIT 28.4 % (36.0-47.0); LYMPHOCYTES % (AUTO) 15.5 % (13-45); MEAN CORPUSCULAR HEMOGLOBIN 26.8 pg (27.0-33.4); MEAN CORPUSCULAR HGB CONC 31.6 g/dL (32.0-36.0); MEAN CORPUSCULAR VOLUME 85 fl (80-97); MONOCYTES % (AUTO) 8.2 % (3-13); PLATELET COUNT 164 10^3/uL (150-450); RED BLOOD COUNT 3.35 10^6/uL (3.72-5.28); RED CELL DISTRIBUTION WIDTH 18.2 % (11.5-14.0); SEGMENTED NEUTROPHILS % (AUTO) 75.5 % (42-78); TOTAL CELLS COUNTED % (AUTO) 100 %; WHITE BLOOD COUNT 11.4 10^3/uL (4.0-10.5)
[2019-08-17 05:25] LABS: ANION GAP 7 (5-19); BLOOD UREA NITROGEN 48 mg/dL (7-20); CALCIUM 8.6 mg/dL (8.4-10.2); CARBON DIOXIDE 31 mmol/L (22-30); CHLORIDE 100 mmol/L (98-107); GLUCOSE 107 mg/dL (75-110); POTASSIUM 4.7 mmol/L (3.6-5.0)
[2019-08-17] MEDS: LEVOTHYROXINE SODIUM 0.1 MG TABLET PO SCH (05:55)
--- NOTE | 2019-08-17 06:11 | Progress Note ---
Provider Note Provider Note: Date/Time of encounter: 08/16/2019 21:23 pm History of Present Illness: GABINO SNOWDEN is a 74 year old female with progressive dementia, HTN, DM II, hypothyroidism, and former smoker with COPD on 4L home O2 as well as severe pulmonary hypertension associated with chronic venous hypertension of the lower extremities who was admitted on 08/14/2019 with UTI, RICHMOND, acute on chronic hypoxic as well as hypercapnic respiratory failure, and CHF exacerbation. Apparently she was supposed to follow up in the office after her recent discharge for a sleep study to obtain a home non-invasive ventilator device but never arranged a visit. Dr Gillette requested that I evaluate Ms Snowden for transfer to ICU informing me the patient is "unresponsive on BiPAP" with acute hypercapnic respiratory failure according to the ABG obtained. I called the walker as I was heading to Ms Snowden's room, asking for respiratory therapy to administer a nebulized treatment for which they had just arrived at bedside and were administering. Past Medical History Cardiac Medical History: Reports: Hypertension, Peripheral Vascular Disease, Other - Severe pulmonary hypertension Pulmonary Medical History: Reports: Chronic Obstructive Pulmonary Disease (COPD) - on home 4L O2 NC, Pneumonia, Respiratory Failure Endocrine Medical History: Reports: Diabetes Mellitus Type 2, Hypothyroidism - w/med noncompliance and hx of myxedema coma GI Medical History: Reports: Gastroesophageal Reflux Disease Musculoskeltal Medical History: Reports: Arthritis Psychiatric Medical History: Reports: Dementia, Depression Past Surgical History Past Surgical History: Reports: Cholecystectomy, Orthopedic Surgery - L Wrist Social History Lives with: Family Smoking Status: Former Smoker Frequency of Alcohol Use: None Hx Recreational Drug Use: No Drugs: None Hx Prescription Drug Abuse: No Family History Family History: Reviewed & Not Pertinent, CAD, DM, Hypertension Parental Family History Reviewed: Yes Children Family History Reviewed: Yes Sibling(s) Family History Reviewed.: Yes Review of Systems Constitutional: ABSENT: chills, fever(s), headache(s), weight gain, weight loss Eyes: ABSENT: visual disturbances Ears: ABSENT: hearing changes Cardiovascular: PRESENT: edema. ABSENT: chest pain, dyspnea on exertion, orthropnea, palpitations Respiratory: PRESENT: cough, dyspnea Gastrointestinal: ABSENT: abdominal pain, constipation, diarrhea, hematemesis, hematochezia, nausea, vomiting Genitourinary: ABSENT: dysuria, hematuria Musculoskeletal: ABSENT: joint swelling Integumentary: ABSENT: rash, wounds Neurological: ABSENT: abnormal gait, abnormal speech, confusion, dizziness, focal weakness, syncope Psychiatric: ABSENT: anxiety, depression, homidical ideation, suicidal ideation Endocrine: ABSENT: cold intolerance, heat intolerance, menstrual abnormalities, polydipsia, polyuria Hematologic/Lymphatic: ABSENT: easy bleeding, easy bruising, lymphadenopathy My evaluation: Upon entering the threshold of Ms Snowden's room, she was visibly moving her arms adjusting her mask and opened her eyes looking at me when I said hello. She is not in any apparent distress, her BiPAP settings were minimal with an IPAP of 10 and EPAP of 5 with an exhaled tidal volume of 240-290 mL, a leak on the BiPAP mask, head of bed was at 30 degrees with comorbid obesity and COPD. Lab work demonstrated a very mild hyperkalemia this morning with improving RICHMOND, a BNP of 5,200 yesterday evening, had received PO Lasix this morning with urinary incontinence into a diaper and appears she voided in a bedside commode once today. Focused Physical Exam: Generalized: NAD, appears age of 74, obese Neuro: opens eyes voice, follows commands, moves all extremities Pulm: Bibasilar fine crackles, CTA in both upper lung sharp CV: S1S2, no M/R/G, BLE edema Imaging: Echocardiogram performed earlier in July 2019 demonstrated RVSP 74 mm Hg and preserved LVEF Her CXR from yesterday evening appears as she has pulmonary vascular congestion due to CHF. I performed POCUS of the IVC in two views demonstrating a full IVC with no respirophasic changes in diameter with intrathoracic pressure changes indicating the patient does not need IV fluid at this time. I also noted a small right pleural effusion coming into view during my assessment of the IVC. Plan: I had RT obtain a better seal on the mask which resolved the leak. Then, I incrementally increased the IPAP to 16, EPAP to 8 for which her Vt improved to 420 mL. With the assistance of the nurse, I then boosted the patient to the top of the bed followed by elevating her head of bed to approximately 80 degrees to get the weight off her chest given obesity as well as COPD. Her Vt increased to 600 mL. Minute ventilation is now 9-10 L/min as I left the room. I will obtain a repeat ABG at 22:30 pm and anticipate the pH and PaCO2 to be improving. Mental status has already improved. I will also obtain a BNP and BMP to follow up her renal function, potassium lev el, and believe she needs a dose of IV Furosemide if lab work allows. I will follow up these results and act on them if appropriate. Hold the IV fluids at this time. Ms Snowden does not need ICU care and is able to remain in room 333 under the care of Marge Cherry, who is a very vigilant RN. Critical care time spent: 40 minutes spent reviewing medical record, coordinating care, assessing patient, intervening on positioning and BiPAP, ordering and reviewing lab work. Update 23:18 pm: Reviewed ABG and has slightly improved. Tidal volume low 400's currently. I Increased the IPAP to 16 and EPAP to 8 with patient's Vt consistently ~550 mL. Will repeat an ABG in the morning, anticipate it will be somewhat of a slow correction, which is okay. Tolerating the pressure well. Mental status remains o nori, unlabored, able to protect airway, still intermittently self-adjusting mask. Ended up giving lasix x1 after reviewing lab work above that was obtained. Will follow up AM chemistry. Additional critical care time: 5 minutes Update 05:30 am: DERECK Bird contacted me to let me know the patient is very much awake and has returned to her baseline mental status. So much so, that she is adamantly ref using a repeat ABG. Clearly, her PaCO2 is much better at this juncture, which also means her pH is improved since the primary problem was respiratory. Additionally, the patient has voided several times since overnight Lasix administration with slight improvement in her renal function, resolution of her hyperkalemia, and a slight increase in her serum Na+ towards a goal of 140. I recommend continuing with Lasix administration today and repeating her BMP 6-8 hrs after administration to monitor her electrolytes as well as renal function. As a result, I imagine her pulmonary congestion will also improve. Additional critical care time: 5 minutes There remains no need for intensive care. Reason for consult of encephalopathy secondary to acute hypercapnic respiratory failure is resolved. There will be no further updates from ICU service.
[2019-08-17] MEDS ORDERED: CEFTRIAXONE 1 GM/D5W RTU 1 GM/50 ML RTUPB IV ONE ×2 (08:00→11:15)
[2019-08-17] MEDS: INSULIN LISPRO 100 UNIT/ML 3 ML VIAL SUBCUT SCH ×4 (08:26→21:45)
[2019-08-17] MEDS: FLUTICASONE/UMECLIDIN/VILANTER 100-62.5-25 MCG/DOSE IH SCH (11:14)
[2019-08-17] MEDS: DULOXETINE HCL 30 MG CAPSULE.DR PO SCH (11:15)
[2019-08-17] MEDS: LOSARTAN POTASSIUM 25 MG TABLET PO SCH (11:15)
[2019-08-17] MEDS: FUROSEMIDE 40 MG TABLET PO SCH (11:15)
[2019-08-17] MEDS: SITAGLIPTIN PHOSPHATE 50 MG TABLET PO SCH (11:15)
[2019-08-17] MEDS: BUSPIRONE HCL 10 MG TABLET PO SCH ×2 (11:15→21:45)
[2019-08-17 12:00] LABS: A TYPE INFLUENZA AG NEGATIVE (NEGATIVE); B INFLUENZA AG NEGATIVE (NEGATIVE)
--- NOTE | 2019-08-17 12:14 | RADIOLOGY REPORT (SQ) ---
EXAM DESCRIPTION: VENOUS BILATERAL LOWER IMAGES COMPLETED DATE/TIME: 08/17/2019 11:47 am REASON FOR STUDY: suspect DVT COMPARISON: None. TECHNIQUE: Dynamic and static cam scale and color images acquired of both lower extremity venous sy stems. Selected spectral images acquired with additional compression and augmentation maneuvers. Imag es stored on PACS. LIMITATIONS: None. FINDINGS: RIGHT LEG COMMON FEMORAL AND FEMORAL: Normal phasicity, compression and augmentation. No visualized echogenic m aterial on cam scale. No defects on color images. POPLITEAL: Normal compression and augmentation. No visualized echogenic material on cam scale. No de fects on color images. CALF VESSELS: Normal compression and augmentation. No visualized echogenic material on cam scale. No defects on color image. GSV AND SSV: Normal compression. No visualized echogenic material on cam scale. No defects on color images. ANY DEEP VENOUS INSUFFICIENCY: Not evaluated. ANY EVIDENCE OF POPLITEAL CYST: No. OTHER: No other significant finding. LEFT LEG COMMON FEMORAL AND FEMORAL: Normal phasicity, compression and augmentation. No visualized echogenic m aterial on cam scale. No defects on color images. POPLITEAL: Normal compression and augmentation. No visualized echogenic material on cam scale. No de fects on color images. CALF VESSELS: Normal compression and augmentation. No visualized echogenic material on cam scale. No defects on color images. GSV AND SSV: Normal compression. No visualized echogenic material on cam scale. No defects on color images. ANY DEEP VENOUS INSUFFICIENCY: Not evaluated. ANY EVIDENCE POPLITEAL CYST: No. OTHER: No other significant finding. IMPRESSION: NO EVIDENCE DVT OR SVT IN EITHER LEG. TECHNICAL DOCUMENTATION: JOB ID: [id number] [id number] 2010 [employer]- All Rights Reserved Reading location - IP/workstation name: [email or web address]
--- NOTE | 2019-08-17 16:12 | PDOC PROGRESS REPORT ---
Subjective Progress Note for:: 08/17/19 Subjective:: Patient seen by the bedside she is alert responsive, not presently requiring BiPAP, on nasal cannula. The venous Doppler of both leg was negative for DVT Reason For Visit: ACUTE HYPERCAPNIC RESPIRATORY FAILURE Physical Exam Vital Signs: Temp Pulse Resp BP Pulse Ox 98.7 F 66 16 134/65 H 94 08/17/19 11:55 08/17/19 11:55 08/17/19 11:55 08/17/19 11:55 08/17/19 11:55 Intake & Output 08/16/19 08/17/19 08/18/19 06:59 06:59 06:59 Intake Total 0 2020 170 Output Total 0 1050 Balance 0 970 170 Weight 87.2 kg 87.1 kg General appearance: PRESENT: no acute distress Respiratory exam: PRESENT: clear to auscultation oh Cardiovascular exam: PRESENT: +S1, +S2 GI/Abdominal exam: PRESENT: soft Neurological exam: PRESENT: alert, CN II-XII grossly intact Results Laboratory Results: 08/17/19 04:08 08/17/19 04:08 08/16/19 08/16/19 08/16/19 20:59 22:10 22:44 WBC RBC Hgb Hct MCV MCH MCHC RDW Plt Count Seg Neutrophils % Carbonic Acid 2.25 H 2.10 H HCO3/H2CO3 Ratio 15:1 15:1 ABG pH 7.28 L 7.29 L ABG pCO2 74.7 H* 69.8 H* ABG pO2 70.7 L 63.9 L ABG HCO3 34.0 H 32.7 H ABG O2 Saturation 91.3 L 89.0 L ABG Base Excess 5.5 4.7 FiO2 40% 40% Sodium 136.7 L Potassium 5.3 H Chloride 100 Carbon Dioxide 31 H Anion Gap 6 BUN 49 H Creatinine 1.43 H Est GFR ( Amer) 44 L Glucose 125 H Calcium 8.5 08/17/19 08/17/19 04:08 04:08 WBC 11.4 H RBC 3.35 L Hgb 9.0 L Hct 28.4 L MCV 85 MCH 26.8 L MCHC 31.6 L RDW 18.2 H Plt Count 164 Seg Neutrophils % 75.5 Carbonic Acid HCO3/H2CO3 Ratio ABG pH ABG pCO2 ABG pO2 ABG HCO3 ABG O2 Saturation ABG Base Excess FiO2 Sodium 138.0 Potassium 4.7 Chloride 100 Carbon Dioxide 31 H Anion Gap 7 BUN 48 H Creatinine 1.35 H Est GFR ( Amer) 47 L Glucose 107 Calcium 8.6 08/15/19 20:50 Clean Catch Midstream Urine Culture - Final Klebsiella Pneumoniae Escherichia Coli 08/15/19 08/15/19 08/15/19 17:39 23:15 23:15 Creatine Kinase 26 L CK-MB (CK-2) 1.01 Troponin I < 0.012 0.015 NT-Pro-B Natriuret Pep 5200 H 08/16/19 08/16/19 08/16/19 05:00 05:00 10:49 Creatine Kinase 32 29 L CK-MB (CK-2) 0.94 Troponin I < 0.012 NT-Pro-B Natriuret Pep 08/16/19 08/16/19 10:49 22:10 Creatine Kinase CK-MB (CK-2) 1.10 Troponin I < 0.012 NT-Pro-B Natriuret Pep 6630 H Impressions: Chest X-Ray 08/15/19 17:49 IMPRESSION: Cardiomegaly with pulmonary edema. Minimal right pleural effusion PE Venous Doppler Study 08/17/19 00:00 IMPRESSION: NO EVIDENCE DVT OR SVT IN EITHER LEG. Assessment & Plan - Diagnosis (1) Acute respiratory failure with hypoxia and hypercarbia Is this a current diagnosis for this admission?: Yes Plan: Continue present treatment (2) Severe pulmonary arterial systolic hypertension Is this a current diagnosis for this admission?: Yes (3) Arthropathy of knee Is this a current diagnosis for this admission?: Yes Plan: percocet for pain (4) Chronic obstructive pulmonary disease (COPD) Qualifiers: COPD type: unspecified COPD Is this a current diagnosis for this admission?: Yes (5) Dementia Qualifiers: Dementia type: Alzheimer's disease Alzheimer's disease onset: late-onset Dementia behavioral disturbance: without behavioral disturbance Qualified Code(s): G30.1 - Alzheimer's disease with late onset; F02.80 - Dementia in other diseases classified elsewhere without behavioral disturbance Is this a current diagnosis for this admission?: Yes (6) Hypothyroidism Qualifiers: Hypothyroidism type: unspecified Is this a current diagnosis for this admission?: Yes (7) Type 2 diabetes mellitus Qualifiers: Diabetes mellitus penitentiary insulin use: without long term care phlebotomist use Diabetes mellitus complication status: with neurologic complications Diabetes mellitus complication detail: with polyneuropathy Qualified Code(s): E11.42 - Type 2 diabetes mellitus with diabetic polyneuropathy Is this a current diagnosis for this admission?: Yes (8) Lower extremity edema Is this a current diagnosis for this admission?: Yes Plan: compressive stocking - Time Time Spent with patient: 25-34 minutes Level of Care: IMCU
[2019-08-17] MEDS: ENOXAPARIN SODIUM INJ 40 MG/0.4 ML DISP.SYRIN SUBCUT SCH (21:45)
[2019-08-18] MEDS: INSULIN GLARGINE,HUM.REC.ANLOG 1,000 UNIT/10 ML VIAL SUBCUT SCH ×2 (00:02→22:44)
[2019-08-18] MEDS: DILTIAZEM HCL 60 MG TABLET PO SCH ×4 (02:56→17:32)
[2019-08-18] MEDS: LEVOTHYROXINE SODIUM 0.1 MG TABLET PO SCH (05:24)
[2019-08-18 05:54] LABS: ABSOLUTE EOSINOPHILS # (AUTO) 0.2 10^3/uL (0.0-0.6); ABSOLUTE LYMPHOCYTES (AUTO) 1.2 10^3/uL (0.5-4.7); ABSOLUTE MONOCYTES (AUTO) 0.6 10^3/uL (0.1-1.4); ABSOLUTE NEUT (AUTO) 5.2 10^3/uL (1.7-8.2); BASOPHILS % (AUTO) 0.6 % (0-2); EOSINOPHILS % (AUTO) 2.6 % (0-6); HEMATOCRIT 29.1 % (36.0-47.0); HEMOGLOBIN 9.2 g/dL (12.0-15.5); LYMPHOCYTES % (AUTO) 16.7 % (13-45); MEAN CORPUSCULAR HEMOGLOBIN 26.7 pg (27.0-33.4); MEAN CORPUSCULAR HGB CONC 31.7 g/dL (32.0-36.0); MEAN CORPUSCULAR VOLUME 84 fl (80-97); MONOCYTES % (AUTO) 8.8 % (3-13); PLATELET COUNT 165 10^3/uL (150-450); RED BLOOD COUNT 3.45 10^6/uL (3.72-5.28); RED CELL DISTRIBUTION WIDTH 17.9 % (11.5-14.0); SEGMENTED NEUTROPHILS % (AUTO) 71.3 % (42-78); TOTAL CELLS COUNTED % (AUTO) 100 %; WHITE BLOOD COUNT 7.3 10^3/uL (4.0-10.5)
[2019-08-18] MEDS: INSULIN LISPRO 100 UNIT/ML 3 ML VIAL SUBCUT SCH ×4 (08:57→22:43)
[2019-08-18] MEDS: SITAGLIPTIN PHOSPHATE 50 MG TABLET PO SCH (09:30)
[2019-08-18] MEDS: DULOXETINE HCL 30 MG CAPSULE.DR PO SCH (09:30)
[2019-08-18] MEDS: FUROSEMIDE 40 MG TABLET PO SCH (09:31)
[2019-08-18] MEDS: CEFTRIAXONE 1 GM/D5W RTU 1 GM/50 ML RTUPB IV SCH (09:31)
[2019-08-18] MEDS: BUSPIRONE HCL 10 MG TABLET PO SCH ×2 (09:31→22:43)
[2019-08-18] MEDS: LOSARTAN POTASSIUM 25 MG TABLET PO SCH (09:31)
[2019-08-18] MEDS: FLUTICASONE/UMECLIDIN/VILANTER 100-62.5-25 MCG/DOSE IH SCH (09:32)
[2019-08-18] MEDS: OXYCODONE-ACETAMINOPHEN 5-325 MG TABLET PO PRN (18:16)
--- NOTE | 2019-08-18 21:13 | PDOC PROGRESS REPORT ---
Subjective Progress Note for:: 08/18/19 Subjective:: Patient seen by the bedside she is getting somewhat better, Occasional confusion Reason For Visit: ACUTE HYPERCAPNIC RESPIRATORY FAILURE Physical Exam Vital Signs: Temp Pulse Resp BP Pulse Ox 98.5 F 58 L 18 143/49 H 95 08/18/19 17:10 08/18/19 17:10 08/18/19 17:10 08/18/19 17:10 08/18/19 17:10 Intake & Output 08/17/19 08/18/19 08/19/19 06:59 06:59 06:59 Intake Total 2019 440 530 Output Total 1050 1300 400 Balance 970 -860 130 Weight 87.1 kg 87.8 kg General appearance: PRESENT: no acute distress Respiratory exam: PRESENT: clear to auscultation oh Cardiovascular exam: PRESENT: +S1, +S2 GI/Abdominal exam: PRESENT: soft Neurological exam: PRESENT: alert Results Laboratory Results: 08/18/19 04:52 08/17/19 04:08 08/18/19 04:52 WBC 7.3 RBC 3.45 L Hgb 9.2 L Hct 29.1 L MCV 84 MCH 26.7 L MCHC 31.7 L RDW 17.9 H Plt Count 165 Seg Neutrophils % 71.3 08/15/19 08/15/19 08/15/19 17:39 23:15 23:15 Creatine Kinase 26 L CK-MB (CK-2) 1.01 Troponin I < 0.012 0.015 NT-Pro-B Natriuret Pep 5200 H 08/16/19 08/16/19 08/16/19 05:00 05:00 10:49 Creatine Kinase 32 29 L CK-MB (CK-2) 0.94 Troponin I < 0.012 NT-Pro-B Natriuret Pep 08/16/19 08/16/19 10:49 22:10 Creatine Kinase CK-MB (CK-2) 1.10 Troponin I < 0.012 NT-Pro-B Natriuret Pep 6630 H Impressions: Chest X-Ray 08/15/19 17:49 IMPRESSION: Cardiomegaly with pulmonary edema. Minimal right pleural effusion PE Venous Doppler Study 08/17/19 00:00 IMPRESSION: NO EVIDENCE DVT OR SVT IN EITHER LEG. Assessment & Plan - Diagnosis (1) Acute respiratory failure with hypoxia and hypercarbia Is this a current diagnosis for this admission?: Yes Plan: Continue present treatment,she continues to require BIPAP and oxygen therapy (2) Severe pulmonary arterial systolic hypertension Is this a current diagnosis for this admission?: Yes (3) Arthropathy of knee Is this a current diagnosis for this admission?: Yes Plan: percocet for pain (4) Chronic obstructive pulmonary disease (COPD) Qualifiers: COPD type: unspecified COPD Is this a current diagnosis for this admission?: Yes (5) Dementia Qualifiers: Dementia type: Alzheimer's disease Alzheimer's disease onset: late-onset Dementia behavioral disturbance: without behavioral disturbance Qualified Code(s): G30.1 - Alzheimer's disease with late onset; F02.80 - Dementia in other diseases classified elsewhere without behavioral disturbance Is this a current diagnosis for this admission?: Yes (6) Hypothyroidism Qualifiers: Hypothyroidism type: unspecified Is this a current diagnosis for this admission?: Yes (7) Type 2 diabetes mellitus Qualifiers: Diabetes mellitus termite treater helper insulin use: without correction use Diabetes mellitus complication status: with neurologic complications Diabetes mellitus complication detail: with polyneuropathy Qualified Code(s): E11.42 - Type 2 diabetes mellitus with diabetic polyneuropathy Is this a current diagnosis for this admission?: Yes Plan: Continue treatment (8) Lower extremity edema Is this a current diagnosis for this admission?: Yes - Time Time Spent with patient: 35 or more minutes Level of Care: IMCU
[2019-08-18 22:09] LABS: ARTERIAL BLOOD BASE EXCESS 9.8 mmol/L; ARTERIAL BLOOD FIO2 40%; ARTERIAL BLOOD H2CO3 2.37 mmol/L (1.05-1.35); ARTERIAL BLOOD HCO3 38.2 mmol/L (20-24); ARTERIAL BLOOD O2 SATURATION 88.7 % (94-98); ARTERIAL BLOOD PO2 63.1 mmHg (80-100); ARTERIAL BLOOD TOTAL CO2 40.6 mmol/L (21-25)
[2019-08-18 22:11] LABS: ARTERIAL BLOOD PCO2 78.7 mmHg (35-45)
[2019-08-18] MEDS: ENOXAPARIN SODIUM INJ 40 MG/0.4 ML DISP.SYRIN SUBCUT SCH (22:42)
[2019-08-19] MEDS: DILTIAZEM HCL 60 MG TABLET PO SCH ×4 (02:43→17:45)
[2019-08-19] MEDS: LEVOTHYROXINE SODIUM 0.1 MG TABLET PO SCH (06:28)
[2019-08-19] MEDS: INSULIN LISPRO 100 UNIT/ML 3 ML VIAL SUBCUT SCH ×4 (10:04→21:52)
[2019-08-19 10:05] LABS: ABSOLUTE EOSINOPHILS # (AUTO) 0.2 10^3/uL (0.0-0.6); ABSOLUTE LYMPHOCYTES (AUTO) 1.5 10^3/uL (0.5-4.7); ABSOLUTE MONOCYTES (AUTO) 0.8 10^3/uL (0.1-1.4); ABSOLUTE NEUT (AUTO) 6.4 10^3/uL (1.7-8.2); BASOPHILS % (AUTO) 0.4 % (0-2); EOSINOPHILS % (AUTO) 2.7 % (0-6); HEMATOCRIT 34.4 % (36.0-47.0); HEMOGLOBIN 10.6 g/dL (12.0-15.5); LYMPHOCYTES % (AUTO) 16.4 % (13-45); MEAN CORPUSCULAR HEMOGLOBIN 26.4 pg (27.0-33.4); MEAN CORPUSCULAR HGB CONC 30.8 g/dL (32.0-36.0); MEAN CORPUSCULAR VOLUME 86 fl (80-97); MONOCYTES % (AUTO) 8.8 % (3-13); PLATELET COUNT 200 10^3/uL (150-450); RED BLOOD COUNT 4.02 10^6/uL (3.72-5.28); RED CELL DISTRIBUTION WIDTH 17.8 % (11.5-14.0); SEGMENTED NEUTROPHILS % (AUTO) 71.7 % (42-78); TOTAL CELLS COUNTED % (AUTO) 100 %
[2019-08-19] MEDS: DULOXETINE HCL 30 MG CAPSULE.DR PO SCH (10:15)
[2019-08-19] MEDS: FUROSEMIDE 40 MG TABLET PO SCH (10:15)
[2019-08-19] MEDS: BUSPIRONE HCL 10 MG TABLET PO SCH ×2 (10:15→21:56)
[2019-08-19] MEDS: SITAGLIPTIN PHOSPHATE 50 MG TABLET PO SCH (10:15)
[2019-08-19] MEDS: LOSARTAN POTASSIUM 25 MG TABLET PO SCH (10:15)
[2019-08-19] MEDS: CEFTRIAXONE 1 GM/D5W RTU 1 GM/50 ML RTUPB IV SCH (10:16)
[2019-08-19] MEDS: FLUTICASONE/UMECLIDIN/VILANTER 100-62.5-25 MCG/DOSE IH SCH (10:18)
[2019-08-19 10:21] LABS: ANION GAP 7 (5-19); BLOOD UREA NITROGEN 31 mg/dL (7-20); CALCIUM 8.9 mg/dL (8.4-10.2); CARBON DIOXIDE 38 mmol/L (22-30); CHLORIDE 90 mmol/L (98-107); GLUCOSE 111 mg/dL (75-110); POTASSIUM 4.6 mmol/L (3.6-5.0)
--- NOTE | 2019-08-19 20:53 | PDOC PROGRESS REPORT ---
Subjective Progress Note for:: 08/19/19 Subjective:: Patient seen by the bedside, she is more alert and engaging today Reason For Visit: ACUTE HYPERCAPNIC RESPIRATORY FAILURE Physical Exam Vital Signs: Temp Pulse Resp BP Pulse Ox 98.9 F 59 L 18 129/46 H 94 08/19/19 15:45 08/19/19 16:54 08/19/19 16:54 08/19/19 15:45 08/19/19 20:30 Pulse Oximeter Nocturnal Start: 08/19/19 1 8:13 Freq: RTQ4 Status: Active Protocol: Document 08/19/19 20:30 LDI (Rec: 08/19/19 20:30 LDI [id number]) Nocturnal Pulse Oximetry Equipment Usage Initial Set Up Nocturnal Spo2 Charge Charge Now Oxygen Delivery Method (includes room Nasal Cannula air) O2 Sat by Pulse Oximetry (92-100) 94 Continuous Pulse Oximeter Set Up Yes Continuous SpO2 Discontinued No Continuous SpO2 Machine # N2 Intake & Output 08/18/19 08/19/19 08/20/19 06:59 06:59 06:59 Intake Total 948 604 0021 Output Total 1300 675 350 Balance -860 76 744 Weight 87.8 kg 85.7 kg Head exam: PRESENT: atraumatic, normocephalic Eye exam: PRESENT: conjunctiva pink, EOMI, PERRLA Ear exam: PRESENT: normal external ear exam Mouth exam: PRESENT: moist, tongue midline Neck exam: PRESENT: full ROM Respiratory exam: PRESENT: clear to auscultation oh Cardiovascular exam: PRESENT: RRR, +S1, +S2 Pulses: PRESENT: normal dorsalis pedis pul, +2 pedal pulses bilateral Vascular exam: PRESENT: normal capillary refill GI/Abdominal exam: PRESENT: normal bowel sounds, soft Rectal exam: PRESENT: deferred Neurological exam: PRESENT: alert, CN II-XII grossly intact Psychiatric exam: PRESENT: appropriate affect, normal mood Skin exam: PRESENT: dry, intact, warm. ABSENT: cyanosis, rash Results Laboratory Results: 08/19/19 09:17 08/19/19 09:17 08/18/19 08/19/19 08/19/19 21:44 09:17 09:17 WBC 9.0 RBC 4.02 Hgb 10.6 L Hct 34.4 L MCV 86 MCH 26.4 L MCHC 30.8 L RDW 17.8 H Plt Count 200 Seg Neutrophils % 71.7 Carbonic Acid 2.37 H HCO3/H2CO3 Ratio 16:1 ABG pH 7.30 L ABG pCO2 78.7 H* ABG pO2 63.1 L ABG HCO3 38.2 H ABG O2 Saturation 88.7 L ABG Base Excess 9.8 FiO2 40% Sodium 135.0 L Potassium 4.6 Chloride 90 L Carbon Dioxide 38 H Anion Gap 7 BUN 31 H Creatinine 1.14 Est GFR ( Amer) 57 L Glucose 111 H Calcium 8.9 08/15/19 08/15/19 08/15/19 17:39 23:15 23:15 Creatine Kinase 26 L CK-MB (CK-2) 1.01 Troponin I < 0.012 0.015 NT-Pro-B Natriuret Pep 5200 H 08/16/19 08/16/19 08/16/19 05:00 05:00 10:49 Creatine Kinase 32 29 L CK-MB (CK-2) 0.94 Troponin I < 0.012 NT-Pro-B Natriuret Pep 08/16/19 08/16/19 10:49 22:10 Creatine Kinase CK-MB (CK-2) 1.10 Troponin I < 0.012 NT-Pro-B Natriuret Pep 6630 H Impressions: Chest X-Ray 08/15/19 17:49 IMPRESSION: Cardiomegaly with pulmonary edema. Minimal right pleural effusion PE Venous Doppler Study 08/17/19 00:00 IMPRESSION: NO EVIDENCE DVT OR SVT IN EITHER LEG. Assessment & Plan - Diagnosis (1) Acute respiratory failure with hypoxia and hypercarbia Is this a current diagnosis for this admission?: Yes Plan: Continue present treatment,she continues to require BIPAP and oxygen therapy (2) Severe pulmonary arterial systolic hypertension Is this a current diagnosis for this admission?: Yes (3) Arthropathy of knee Is this a current diagnosis for this admission?: Yes (4) Chronic obstructive pulmonary disease (COPD) Qualifiers: COPD type: unspecified COPD Is this a current diagnosis for this admission?: Yes (5) Dementia Qualifiers: Dementia type: Alzheimer's disease Alzheimer's disease onset: late-onset Dementia behavioral disturbance: without behavioral disturbance Qualified Code(s): G30.1 - Alzheimer's disease with late onset; F02.80 - Dementia in other diseases classified elsewhere without behavioral disturbance Is this a current diagnosis for this admission?: Yes (6) Hypothyroidism Qualifiers: Hypothyroidism type: unspecified Is this a current diagnosis for this admission?: Yes (7) Type 2 diabetes mellitus Qualifiers: Diabetes mellitus intermediate project manager insulin use: without senior care use Diabetes mellitus complication status: with neurologic complications Diabetes mellitus complication detail: with polyneuropathy Qualified Code(s): E11.42 - Type 2 diabetes mellitus with diabetic polyneuropathy Is this a current diagnosis for this admission?: Yes Plan: Continue treatment (8) Lower extremity edema Is this a current diagnosis for this admission?: Yes - Time Time Spent with patient: 35 or more minutes Level of Care: IMCU
[2019-08-19] MEDS: ENOXAPARIN SODIUM INJ 40 MG/0.4 ML DISP.SYRIN SUBCUT SCH (21:52)
[2019-08-19] MEDS: INSULIN GLARGINE,HUM.REC.ANLOG 1,000 UNIT/10 ML VIAL SUBCUT SCH (21:57)
[2019-08-20] MEDS: LEVOTHYROXINE SODIUM 0.1 MG TABLET PO SCH (05:23)
[2019-08-20] MEDS: INSULIN LISPRO 100 UNIT/ML 3 ML VIAL SUBCUT SCH ×4 (07:29→21:09)
[2019-08-20] MEDS: FUROSEMIDE 40 MG TABLET PO SCH (09:14)
[2019-08-20] MEDS: DULOXETINE HCL 30 MG CAPSULE.DR PO SCH (09:14)
[2019-08-20] MEDS: LOSARTAN POTASSIUM 25 MG TABLET PO SCH (09:14)
[2019-08-20] MEDS: FLUTICASONE/UMECLIDIN/VILANTER 100-62.5-25 MCG/DOSE IH SCH (09:14)
[2019-08-20] MEDS: BUSPIRONE HCL 10 MG TABLET PO SCH ×2 (09:14→21:09)
[2019-08-20] MEDS: SITAGLIPTIN PHOSPHATE 50 MG TABLET PO SCH (09:14)
[2019-08-20] MEDS: CEFTRIAXONE 1 GM/D5W RTU 1 GM/50 ML RTUPB IV SCH (09:16)
--- NOTE | 2019-08-20 18:13 | PDOC PROGRESS REPORT ---
Subjective Progress Note for:: 08/20/19 Subjective:: Patient seen by the bedside, her condition is about the same Reason For Visit: ACUTE HYPERCAPNIC RESPIRATORY FAILURE Physical Exam Vital Signs: Temp Pulse Resp BP Pulse Ox 98.8 F 68 19 150/53 H 93 08/20/19 17:15 08/20/19 17:15 08/20/19 17:15 08/20/19 17:15 08/20/19 17:15 Pulse Oximeter Nocturnal Start: 08/19/19 18:13 Freq: RTQ4 Status: Complete Protocol: Document 08/20/19 04:00 LDI (Rec: 08/20/19 05:58 LDI [id number]) Nocturnal Pulse Oximetry Equipment Usage Equipment in Use Nocturnal Spo2 Charge Charge Now Oxygen Delivery Method (includes room Nasal Cannula air) O2 Sat by Pulse Oximetry (92-100) 88 Continuous SpO2 Discontinued Yes: Study end @ approx 0500 Continuous SpO2 Machine # N2 Intake & Output 08/19/19 08/20/19 08/21/19 06:59 06:59 06:59 Intake Total 751 1316 390 Output Total 675 850 300 Balance 76 466 90 Weight 85.7 kg 83.2 kg General appearance: PRESENT: no acute distress Eye exam: PRESENT: PERRLA Respiratory exam: PRESENT: clear to auscultation oh Cardiovascular exam: PRESENT: +S1, +S2 GI/Abdominal exam: PRESENT: soft Results Laboratory Results: 08/19/19 09:17 08/19/19 09:17 08/15/19 08/15/19 08/15/19 17:39 23:15 23:15 Creatine Kinase 26 L CK-MB (CK-2) 1.01 Troponin I < 0.012 0.015 NT-Pro-B Natriuret Pep 5200 H 08/16/19 08/16/19 08/16/19 05:00 05:00 10:49 Creatine Kinase 32 29 L CK-MB (CK-2) 0.94 Troponin I < 0.012 NT-Pro-B Natriuret Pep 08/16/19 08/16/19 10:49 22:10 Creatine Kinase CK-MB (CK-2) 1.10 Troponin I < 0.012 NT-Pro-B Natriuret Pep 6630 H Impressions: Chest X-Ray 08/15/19 17:49 IMPRESSION: Cardiomegaly with pulmonary edema. Minimal right pleural effusion PE Venous Doppler Study 08/17/19 00:00 IMPRESSION: NO EVIDENCE DVT OR SVT IN EITHER LEG. Assessment & Plan - Diagnosis (1) Acute respiratory failure with hypoxia and hypercarbia Is this a current diagnosis for this admission?: Yes Plan: Continue present treatment,she continues to require BIPAP and oxygen therapy (2) Severe pulmonary arterial systolic hypertension Is this a current diagnosis for this admission?: Yes (3) Arthropathy of knee Is this a current diagnosis for this admission?: Yes (4) Chronic obstructive pulmonary disease (COPD) Qualifiers: COPD type: unspecified COPD Is this a current diagnosis for this admission?: Yes (5) Dementia Qualifiers: Dementia type: Alzheimer's disease Alzheimer's disease onset: late-onset Dementia behavioral disturbance: without behavioral disturbance Qualified Code(s): G30.1 - Alzheimer's disease with late onset; F02.80 - Dementia in other diseases classified elsewhere without behavioral disturbance Is this a current diagnosis for this admission?: Yes (6) Hypothyroidism Qualifiers: Hypothyroidism type: unspecified Is this a current diagnosis for this admission?: Yes (7) Type 2 diabetes mellitus Qualifiers: Diabetes mellitus alf insulin use: without terminal operations manager use Diabetes mellitus complication status: with neurologic complications Diabetes mellitus complication detail: with polyneuropathy Qualified Code(s): E11.42 - Type 2 diabetes mellitus with diabetic polyneuropathy Is this a current diagnosis for this admission?: Yes Plan: Continue treatment (8) Lower extremity edema Is this a current diagnosis for this admission?: Yes - Time Time Spent with patient: 25-34 minutes Level of Care: IMCU Medications reviewed and adjusted accordingly: Yes
[2019-08-20] MEDS: ENOXAPARIN SODIUM INJ 40 MG/0.4 ML DISP.SYRIN SUBCUT SCH (21:08)
[2019-08-20] MEDS: INSULIN GLARGINE,HUM.REC.ANLOG 1,000 UNIT/10 ML VIAL SUBCUT SCH (21:09)
[2019-08-21] MEDS: LEVOTHYROXINE SODIUM 0.1 MG TABLET PO SCH (05:31)
[2019-08-21] MEDS: INSULIN LISPRO 100 UNIT/ML 3 ML VIAL SUBCUT SCH ×4 (08:25→21:45)
[2019-08-21] MEDS: FUROSEMIDE 40 MG TABLET PO SCH (08:26)
[2019-08-21] MEDS: BUSPIRONE HCL 10 MG TABLET PO SCH ×2 (09:15→21:44)
[2019-08-21] MEDS: LOSARTAN POTASSIUM 25 MG TABLET PO SCH (09:15)
[2019-08-21] MEDS: DULOXETINE HCL 30 MG CAPSULE.DR PO SCH (09:15)
[2019-08-21] MEDS: SITAGLIPTIN PHOSPHATE 50 MG TABLET PO SCH (09:16)
[2019-08-21] MEDS: FLUTICASONE/UMECLIDIN/VILANTER 100-62.5-25 MCG/DOSE IH SCH (09:35)
[2019-08-21] MEDS: CEFTRIAXONE 1 GM/D5W RTU 1 GM/50 ML RTUPB IV SCH (09:50)
[2019-08-21] MEDS: ACETAMINOPHEN 325 MG TABLET PO PRN (13:16)
--- NOTE | 2019-08-21 20:59 | PDOC PROGRESS REPORT ---
Subjective Progress Note for:: 08/21/19 Subjective:: Patient seen by the bedside she will require Trilogy, she has failed outpatient CPAP machine, she cannot maintain adequate arterial CO2 without positive pressure ventilation. Discharge planning is making efforts to have the noninvasive device available for patient to use and hopefully discharge home once we are able to get his device. Reason For Visit: ACUTE HYPERCAPNIC RESPIRATORY FAILURE Physical Exam Vital Signs: Temp Pulse Resp BP Pulse Ox 97.9 F 66 20 148/57 H 96 08/21/19 15:49 08/21/19 15:49 08/21/19 15:49 08/21/19 15:49 08/21/19 16:00 Pulse Oximeter Nocturnal Start: 08/19/19 18:13 Freq: RTQ4 Status: Complete Protocol: Document 08/20/19 04:00 LDI (Rec: 08/20/19 05:58 LDI [id number]) Nocturnal Pulse Oximetry Equipment Usage Equipment in Use Nocturnal Spo2 Charge Charge Now Oxygen Delivery Method (includes room Nasal Cannula air) O2 Sat by Pulse Oximetry (92-100) 88 Continuous SpO2 Discontinued Yes: Study end @ approx 0500 Continuous SpO2 Machine # N2 Intake & Output 08/20/19 08/21/19 08/22/19 06:59 06:59 06:59 Intake Total 7805 929 8381 Output Total 850 1150 Balance 466 -298 1030 Weight 83.2 kg 78.9 kg General appearance: PRESENT: no acute distress Eye exam: PRESENT: PERRLA Respiratory exam: PRESENT: clear to auscultation oh Cardiovascular exam: PRESENT: +S1, +S2 GI/Abdominal exam: PRESENT: soft Neurological exam: PRESENT: alert Results Laboratory Results: 08/19/19 09:17 08/19/19 09:17 08/15/19 23:15 Blood Blood Culture - Final NO GROWTH IN 5 DAYS 08/15/19 22:40 Blood Blood Culture - Final NO GROWTH IN 5 DAYS 08/15/19 08/15/19 08/15/19 17:39 23:15 23:15 Creatine Kinase 26 L CK-MB (CK-2) 1.01 Troponin I < 0.012 0.015 NT-Pro-B Natriuret Pep 5200 H 08/16/19 08/16/19 08/16/19 05:00 05:00 10:49 Creatine Kinase 32 29 L CK-MB (CK-2) 0.94 Troponin I < 0.012 NT-Pro-B Natriuret Pep 08/16/19 08/16/19 10:49 22:10 Creatine Kinase CK-MB (CK-2) 1.10 Troponin I < 0.012 NT-Pro-B Natriuret Pep 6630 H Impressions: Chest X-Ray 08/15/19 17:49 IMPRESSION: Cardiomegaly with pulmonary edema. Minimal right pleural effusion PE Venous Doppler Study 08/17/19 00:00 IMPRESSION: NO EVIDENCE DVT OR SVT IN EITHER LEG. Assessment & Plan - Diagnosis (1) Acute respiratory failure with hypoxia and hypercarbia Is this a current diagnosis for this admission?: Yes Plan: Continue present treatment,she continues to require BIPAP and oxygen therapy (2) Severe pulmonary arterial systolic hypertension Is this a current diagnosis for this admission?: Yes (3) Arthropathy of knee Is this a current diagnosis for this admission?: Yes (4) Chronic obstructive pulmonary disease (COPD) Qualifiers: COPD type: unspecified COPD Is this a current diagnosis for this admission?: Yes (5) Dementia Qualifiers: Dementia type: Alzheimer's disease Alzheimer's disease onset: late-onset Dementia behavioral disturbance: without behavioral disturbance Qualified Code(s): G30.1 - Alzheimer's disease with late onset; F02.80 - Dementia in other diseases classified elsewhere without behavioral disturbance Is this a current diagnosis for this admission?: Yes (6) Hypothyroidism Qualifiers: Hypothyroidism type: unspecified Is this a current diagnosis for this admission?: Yes (7) Type 2 diabetes mellitus Qualifiers: Diabetes mellitus internal medicine doctor insulin use: without internal medicine doctor use Diabetes mellitus complication status: with neurologic complications Diabetes mellitus complication detail: with polyneuropathy Qualified Code(s): E11.42 - Type 2 diabetes mellitus with diabetic polyneuropathy Is this a current diagnosis for this admission?: Yes Plan: Continue treatment (8) Lower extremity edema Is this a current diagnosis for this admission?: Yes - Time Time Spent with patient: 25-34 minutes Level of Care: IMCU
[2019-08-21] MEDS: ENOXAPARIN SODIUM INJ 40 MG/0.4 ML DISP.SYRIN SUBCUT SCH (21:44)
[2019-08-21] MEDS: INSULIN GLARGINE,HUM.REC.ANLOG 1,000 UNIT/10 ML VIAL SUBCUT SCH (21:44)
[2019-08-22] MEDS: LEVOTHYROXINE SODIUM 0.1 MG TABLET PO SCH (05:28)
[2019-08-22] MEDS: INSULIN LISPRO 100 UNIT/ML 3 ML VIAL SUBCUT SCH ×4 (08:37→21:29)
[2019-08-22] MEDS: SITAGLIPTIN PHOSPHATE 50 MG TABLET PO SCH (09:23)
[2019-08-22] MEDS: DULOXETINE HCL 30 MG CAPSULE.DR PO SCH (09:23)
[2019-08-22] MEDS: FUROSEMIDE 40 MG TABLET PO SCH (09:23)
[2019-08-22] MEDS: BUSPIRONE HCL 10 MG TABLET PO SCH ×2 (09:23→21:17)
[2019-08-22] MEDS: LOSARTAN POTASSIUM 25 MG TABLET PO SCH (09:23)
[2019-08-22] MEDS: CEFTRIAXONE 1 GM/D5W RTU 1 GM/50 ML RTUPB IV SCH (09:25)
[2019-08-22] MEDS: FLUTICASONE/UMECLIDIN/VILANTER 100-62.5-25 MCG/DOSE IH SCH (09:26)
--- NOTE | 2019-08-22 20:55 | PDOC PROGRESS REPORT ---
Subjective Progress Note for:: 08/22/19 Subjective:: Patient seen by the bedside she will require Trilogy, she has failed outpatient BIPAP machine, she cannot maintain adequate arterial CO2 without positive pressure ventilation. Discharge planning is making efforts to have the noninvasive device available for patient to use and hopefully discharge home once we are able to get this device. Reason For Visit: ACUTE HYPERCAPNIC RESPIRATORY FAILURE Physical Exam Vital Signs: Temp Pulse Resp BP Pulse Ox 98.2 F 64 17 132/49 H 98 08/22/19 08:17 08/22/19 19:00 08/22/19 08:17 08/22/19 08:17 08/22/19 08:17 Pulse Oximeter Nocturnal Start: 08/19/19 18:13 Freq: RTQ4 Status: Complete Protocol: Document 08/20/19 04:00 LDI (Rec: 08/20/19 05:58 LDI [id number]) Nocturnal Pulse Oximetry Equipment Usage Equipment in Use Nocturnal Spo2 Charge Charge Now Oxygen Delivery Method (includes room Nasal Cannula air) O2 Sat by Pulse Oximetry (92-100) 88 Continuous SpO2 Discontinued Yes: Study end @ approx 0500 Continuous SpO2 Machine # N2 Intake & Output 08/21/19 08/22/19 08/23/19 06:59 06:59 06:59 Intake Total 852 1410 50 Output Total 1150 Balance -298 1410 50 Weight 78.9 kg 85.2 kg Head exam: PRESENT: atraumatic, normocephalic Eye exam: PRESENT: conjunctiva pink, EOMI, PERRLA Ear exam: PRESENT: normal external ear exam Mouth exam: PRESENT: moist, tongue midline Neck exam: PRESENT: full ROM Respiratory exam: PRESENT: clear to auscultation oh Cardiovascular exam: PRESENT: RRR, +S1, +S2 Pulses: PRESENT: normal dorsalis pedis pul, +2 pedal pulses bilateral Vascular exam: PRESENT: normal capillary refill GI/Abdominal exam: PRESENT: normal bowel sounds, soft Rectal exam: PRESENT: deferred Neurological exam: PRESENT: alert. ABSENT: motor sensory deficit Psychiatric exam: PRESENT: appropriate affect, normal mood Skin exam: PRESENT: dry, intact, warm Results Laboratory Results: 08/19/19 09:17 08/19/19 09:17 08/15/19 08/15/19 08/15/19 17:39 23:15 23:15 Creatine Kinase 26 L CK-MB (CK-2) 1.01 Troponin I < 0.012 0.015 NT-Pro-B Natriuret Pep 5200 H 08/16/19 08/16/19 08/16/19 05:00 05:00 10:49 Creatine Kinase 32 29 L CK-MB (CK-2) 0.94 Troponin I < 0.012 NT-Pro-B Natriuret Pep 08/16/19 08/16/19 10:49 22:10 Creatine Kinase CK-MB (CK-2) 1.10 Troponin I < 0.012 NT-Pro-B Natriuret Pep 6630 H Impressions: Chest X-Ray 08/15/19 17:49 IMPRESSION: Cardiomegaly with pulmonary edema. Minimal right pleural effusion PE Venous Doppler Study 08/17/19 00:00 IMPRESSION: NO EVIDENCE DVT OR SVT IN EITHER LEG. Assessment & Plan - Diagnosis (1) Acute respiratory failure with hypoxia and hypercarbia Is this a current diagnosis for this admission?: Yes Plan: Continue present treatment,she continues to require BIPAP and oxygen therapy (2) Severe pulmonary arterial systolic hypertension Is this a current diagnosis for this admission?: Yes (3) Arthropathy of knee Is this a current diagnosis for this admission?: Yes (4) Chronic obstructive pulmonary disease (COPD) Qualifiers: COPD type: unspecified COPD Is this a current diagnosis for this admission?: Yes (5) Dementia Qualifiers: Dementia type: Alzheimer's disease Alzheimer's disease onset: late-onset Dementia behavioral disturbance: without behavioral disturbance Qualified Code(s): G30.1 - Alzheimer's disease with late onset; F02.80 - Dementia in other diseases classified elsewhere without behavioral disturbance Is this a current diagnosis for this admission?: Yes (6) Hypothyroidism Qualifiers: Hypothyroidism type: unspecified Is this a current diagnosis for this admission?: Yes (7) Type 2 diabetes mellitus Qualifiers: Diabetes mellitus alf insulin use: without alf use Diabetes mellitus complication status: with neurologic complications Diabetes mellitus complication detail: with polyneuropathy Qualified Code(s): E11.42 - Type 2 diabetes mellitus with diabetic polyneuropathy Is this a current diagnosis for this admission?: Yes (8) Lower extremity edema Is this a current diagnosis for this admission?: Yes - Time Time Spent with patient: 25-34 minutes
[2019-08-22] MEDS: ENOXAPARIN SODIUM INJ 40 MG/0.4 ML DISP.SYRIN SUBCUT SCH (21:17)
[2019-08-22] MEDS: INSULIN GLARGINE,HUM.REC.ANLOG 1,000 UNIT/10 ML VIAL SUBCUT SCH (21:18)
[2019-08-23] MEDS: ACETAMINOPHEN 325 MG TABLET PO PRN ×2 (04:17→18:16)
[2019-08-23] MEDS: LEVOTHYROXINE SODIUM 0.1 MG TABLET PO SCH (05:05)
[2019-08-23] MEDS: INSULIN LISPRO 100 UNIT/ML 3 ML VIAL SUBCUT SCH ×4 (08:20→21:07)
[2019-08-23] MEDS: SITAGLIPTIN PHOSPHATE 50 MG TABLET PO SCH (09:33)
[2019-08-23] MEDS: FUROSEMIDE 40 MG TABLET PO SCH (09:33)
[2019-08-23] MEDS: DULOXETINE HCL 30 MG CAPSULE.DR PO SCH (09:34)
[2019-08-23] MEDS: CEFTRIAXONE 1 GM/D5W RTU 1 GM/50 ML RTUPB IV SCH (09:34)
[2019-08-23] MEDS: LOSARTAN POTASSIUM 25 MG TABLET PO SCH (09:34)
[2019-08-23] MEDS: BUSPIRONE HCL 10 MG TABLET PO SCH ×2 (09:34→21:02)
[2019-08-23] MEDS: FLUTICASONE/UMECLIDIN/VILANTER 100-62.5-25 MCG/DOSE IH SCH (09:41)
--- NOTE | 2019-08-23 12:00 | PDOC PROGRESS REPORT ---
Subjective Progress Note for:: 08/23/19 Subjective:: Patient is currently doing well Patient's denied any chest pain no short of breath Patient's currently using the trilogy patient is failed outpatient BiPAP Reason For Visit: ACUTE HYPERCAPNIC RESPIRATORY FAILURE Physical Exam Vital Signs: Temp Pulse Resp BP Pulse Ox 97.8 F 63 20 129/49 H 92 08/23/19 07:23 08/23/19 07:23 08/23/19 07:23 08/23/19 07:23 08/23/19 07:23 Pulse Oximeter Nocturnal Start: 08/19/19 18:13 Freq: RTQ4 Status: Complete Protocol: Document 08/20/19 04:00 LDI (Rec: 08/20/19 05:58 LDI [id number]) Nocturnal Pulse Oximetry Equipment Usage Equipment in Use Nocturnal Spo2 Charge Charge Now Oxygen Delivery Method (includes room Nasal Cannula air) O2 Sat by Pulse Oximetry (92-100) 88 Continuous SpO2 Discontinued Yes: Study end @ approx 0500 Continuous SpO2 Machine # N2 Intake & Output 08/22/19 08/23/19 08/24/19 06:59 06:59 06:59 Intake Total 1410 310 50 Balance 1410 310 50 Weight 85.2 kg 78.2 kg General appearance: PRESENT: no acute distress, well-developed, well-nourished Head exam: PRESENT: atraumatic, normocephalic Eye exam: PRESENT: conjunctiva pink, EOMI, PERRLA. ABSENT: scleral icterus Ear exam: PRESENT: normal external ear exam Mouth exam: PRESENT: moist, tongue midline Neck exam: PRESENT: full ROM. ABSENT: carotid bruit, JVD, lymphadenopathy, thyromegaly Respiratory exam: PRESENT: clear to auscultation oh Cardiovascular exam: PRESENT: RRR. ABSENT: diastolic murmur, rubs, systolic murmur Pulses: PRESENT: normal dorsalis pedis pul, +2 pedal pulses bilateral Vascular exam: PRESENT: normal capillary refill GI/Abdominal exam: PRESENT: normal bowel sounds, soft. ABSENT: distended, guarding, mass, organolmegaly, rebound, tenderness Rectal exam: PRESENT: deferred Neurological exam: PRESENT: alert, awake, oriented to person, oriented to place, oriented to time, oriented to situation, CN II-XII grossly intact. ABSENT: motor sensory deficit Psychiatric exam: PRESENT: appropriate affect, normal mood. ABSENT: homicidal ideation, suicidal ideation Skin exam: PRESENT: dry, intact, warm. ABSENT: cyanosis, rash Results Laboratory Results: 08/19/19 09:17 08/19/19 09:17 08/15/19 08/15/19 08/15/19 17:39 23:15 23:15 Creatine Kinase 26 L CK-MB (CK-2) 1.01 Troponin I < 0.012 0.015 NT-Pro-B Natriuret Pep 5200 H 08/16/19 08/16/19 08/16/19 05:00 05:00 10:49 Creatine Kinase 32 29 L CK-MB (CK-2) 0.94 Troponin I < 0.012 NT-Pro-B Natriuret Pep 08/16/19 08/16/19 10:49 22:10 Creatine Kinase CK-MB (CK-2) 1.10 Troponin I < 0.012 NT-Pro-B Natriuret Pep 6630 H Impressions: Chest X-Ray 08/15/19 17:49 IMPRESSION: Cardiomegaly with pulmonary edema. Minimal right pleural effusion PE Venous Doppler Study 08/17/19 00:00 IMPRESSION: NO EVIDENCE DVT OR SVT IN EITHER LEG. Assessment & Plan - Diagnosis (1) Acute hypercapnic respiratory failure Is this a current diagnosis for this admission?: Yes (2) COPD exacerbation Is this a current diagnosis for this admission?: Yes (3) Congestive heart failure Qualifiers: Heart failure type: unspecified Heart failure chronicity: acute on chronic Qualified Code(s): I50.9 - Heart failure, unspecified Is this a current diagnosis for this admission?: Yes (4) Hypercapnia Is this a current diagnosis for this admission?: Yes (5) Severe pulmonary arterial systolic hypertension Is this a current diagnosis for this admission?: Yes (6) Anemia Qualifiers: Is this a current diagnosis for this admission?: Yes - Time Time Spent with patient: 15-24 minutes Level of Care: IMCU Medications reviewed and adjusted accordingly: Yes Anticipated discharge: Other Within: Other - Plan Summary Plan Summary: Continues to current medications
[2019-08-23] MEDS: ENOXAPARIN SODIUM INJ 40 MG/0.4 ML DISP.SYRIN SUBCUT SCH (21:02)
[2019-08-23] MEDS: INSULIN GLARGINE,HUM.REC.ANLOG 1,000 UNIT/10 ML VIAL SUBCUT SCH (21:03)
[2019-08-24] MEDS: LEVOTHYROXINE SODIUM 0.1 MG TABLET PO SCH (05:15)
[2019-08-24] MEDS: INSULIN LISPRO 100 UNIT/ML 3 ML VIAL SUBCUT SCH ×4 (08:22→22:00)
[2019-08-24] MEDS: SITAGLIPTIN PHOSPHATE 50 MG TABLET PO SCH (09:26)
[2019-08-24] MEDS: LOSARTAN POTASSIUM 25 MG TABLET PO SCH (09:26)
[2019-08-24] MEDS: CEFTRIAXONE 1 GM/D5W RTU 1 GM/50 ML RTUPB IV SCH (09:27)
[2019-08-24] MEDS: FUROSEMIDE 40 MG TABLET PO SCH (09:27)
[2019-08-24] MEDS: BUSPIRONE HCL 10 MG TABLET PO SCH ×2 (09:27→21:59)
[2019-08-24] MEDS: DULOXETINE HCL 30 MG CAPSULE.DR PO SCH (09:27)
[2019-08-24] MEDS: FLUTICASONE/UMECLIDIN/VILANTER 100-62.5-25 MCG/DOSE IH SCH (09:27)
--- NOTE | 2019-08-24 09:51 | PDOC PROGRESS REPORT ---
Subjective Progress Note for:: 08/24/19 Subjective:: Patient is currently doing well Patient's denied any chest pain no short of breath Patient's currently using the trilogy patient is failed outpatient BiPAP Reason For Visit: ACUTE HYPERCAPNIC RESPIRATORY FAILURE Physical Exam Vital Signs: Temp Pulse Resp BP Pulse Ox 97.3 F 96 20 131/45 H 96 08/24/19 07:21 08/24/19 07:21 08/24/19 07:21 08/24/19 07:21 08/24/19 07:21 Pulse Oximeter Nocturnal Start: 08/19/19 18:13 Freq: RTQ4 Status: Complete Protocol: Document 08/20/19 04:00 LDI (Rec: 08/20/19 05:58 LDI [id number]) Nocturnal Pulse Oximetry Equipment Usage Equipment in Use Nocturnal Spo2 Charge Charge Now Oxygen Delivery Method (includes room Nasal Cannula air) O2 Sat by Pulse Oximetry (92-100) 88 Continuous SpO2 Discontinued Yes: Study end @ approx 0500 Continuous SpO2 Machine # N2 Intake & Output 08/23/19 08/24/19 08/25/19 06:59 06:59 06:59 Intake Total 310 770 Output Total 625 Balance 310 145 Weight 78.2 kg 79.8 kg General appearance: PRESENT: no acute distress, well-developed, well-nourished Head exam: PRESENT: atraumatic, normocephalic Eye exam: PRESENT: conjunctiva pink, EOMI, PERRLA. ABSENT: scleral icterus Ear exam: PRESENT: normal external ear exam Mouth exam: PRESENT: moist, tongue midline Neck exam: PRESENT: full ROM. ABSENT: carotid bruit, JVD, lymphadenopathy, thyromegaly Respiratory exam: PRESENT: clear to auscultation oh Cardiovascular exam: PRESENT: RRR. ABSENT: diastolic murmur, rubs, systolic murmur Pulses: PRESENT: normal dorsalis pedis pul, +2 pedal pulses bilateral Vascular exam: PRESENT: normal capillary refill GI/Abdominal exam: PRESENT: normal bowel sounds, soft. ABSENT: distended, guarding, mass, organolmegaly, rebound, tenderness Rectal exam: PRESENT: deferred Neurological exam: PRESENT: alert, awake, oriented to person, oriented to place, oriented to time, oriented to situation, CN II-XII grossly intact. ABSENT: motor sensory deficit Psychiatric exam: PRESENT: appropriate affect, normal mood. ABSENT: homicidal ideation, suicidal ideation Skin exam: PRESENT: dry, intact, warm. ABSENT: cyanosis, rash Results Laboratory Results: 08/19/19 09:17 08/19/19 09:17 08/15/19 08/15/19 08/15/19 17:39 23:15 23:15 Creatine Kinase 26 L CK-MB (CK-2) 1.01 Troponin I < 0.012 0.015 NT-Pro-B Natriuret Pep 5200 H 08/16/19 08/16/19 08/16/19 05:00 05:00 10:49 Creatine Kinase 32 29 L CK-MB (CK-2) 0.94 Troponin I < 0.012 NT-Pro-B Natriuret Pep 08/16/19 08/16/19 10:49 22:10 Creatine Kinase CK-MB (CK-2) 1.10 Troponin I < 0.012 NT-Pro-B Natriuret Pep 6630 H Impressions: Chest X-Ray 08/15/19 17:49 IMPRESSION: Cardiomegaly with pulmonary edema. Minimal right pleural effusion PE Venous Doppler Study 08/17/19 00:00 IMPRESSION: NO EVIDENCE DVT OR SVT IN EITHER LEG. Assessment & Plan - Diagnosis (1) Acute hypercapnic respiratory failure Is this a current diagnosis for this admission?: Yes (2) COPD exacerbation Is this a current diagnosis for this admission?: Yes (3) Congestive heart failure Qualifiers: Heart failure type: unspecified Heart failure chronicity: acute on chronic Qualified Code(s): I50.9 - Heart failure, unspecified Is this a current diagnosis for this admission?: Yes (4) Hypercapnia Is this a current diagnosis for this admission?: Yes (5) Severe pulmonary arterial systolic hypertension Is this a current diagnosis for this admission?: Yes (6) Anemia Qualifiers: Is this a current diagnosis for this admission?: Yes - Time Time Spent with patient: 15-24 minutes Level of Care: IMCU Medications reviewed and adjusted accordingly: Yes Anticipated discharge: Other Within: Other - Plan Summary Plan Summary: Continues to current medications
[2019-08-24] MEDS: ACETAMINOPHEN 325 MG TABLET PO PRN ×2 (15:45→21:59)
[2019-08-24] MEDS: ENOXAPARIN SODIUM INJ 40 MG/0.4 ML DISP.SYRIN SUBCUT SCH (21:59)
[2019-08-24] MEDS: INSULIN GLARGINE,HUM.REC.ANLOG 1,000 UNIT/10 ML VIAL SUBCUT SCH (21:59)
[2019-08-25] MEDS: LEVOTHYROXINE SODIUM 0.1 MG TABLET PO SCH (05:14)
[2019-08-25] MEDS: FUROSEMIDE 40 MG TABLET PO SCH (08:22)
[2019-08-25] MEDS: ACETAMINOPHEN 325 MG TABLET PO PRN ×2 (08:22→14:15)
[2019-08-25] MEDS: INSULIN LISPRO 100 UNIT/ML 3 ML VIAL SUBCUT SCH ×4 (08:45→22:48)
[2019-08-25] MEDS: SITAGLIPTIN PHOSPHATE 50 MG TABLET PO SCH (09:05)
[2019-08-25] MEDS: DULOXETINE HCL 30 MG CAPSULE.DR PO SCH (09:05)
[2019-08-25] MEDS: LOSARTAN POTASSIUM 25 MG TABLET PO SCH (09:05)
[2019-08-25] MEDS: BUSPIRONE HCL 10 MG TABLET PO SCH ×2 (09:05→22:48)
[2019-08-25] MEDS: FLUTICASONE/UMECLIDIN/VILANTER 100-62.5-25 MCG/DOSE IH SCH (09:06)
[2019-08-25 16:03] LABS: ABSOLUTE BASOPHILS # (AUTO) 0.1 10^3/uL (0.0-0.2); ABSOLUTE EOSINOPHILS # (AUTO) 0.1 10^3/uL (0.0-0.6); ABSOLUTE LYMPHOCYTES (AUTO) 1.7 10^3/uL (0.5-4.7); ABSOLUTE MONOCYTES (AUTO) 1.2 10^3/uL (0.1-1.4); ABSOLUTE NEUT (AUTO) 6.1 10^3/uL (1.7-8.2); BASOPHILS % (AUTO) 1.4 % (0-2); EOSINOPHILS % (AUTO) 1.1 % (0-6); HEMATOCRIT 33.1 % (36.0-47.0); HEMOGLOBIN 10.4 g/dL (12.0-15.5); LYMPHOCYTES % (AUTO) 18.6 % (13-45); MEAN CORPUSCULAR HEMOGLOBIN 26.1 pg (27.0-33.4); MEAN CORPUSCULAR HGB CONC 31.5 g/dL (32.0-36.0); MEAN CORPUSCULAR VOLUME 83 fl (80-97); MONOCYTES % (AUTO) 12.6 % (3-13); PLATELET COUNT 208 10^3/uL (150-450); RED CELL DISTRIBUTION WIDTH 17.5 % (11.5-14.0); SEGMENTED NEUTROPHILS % (AUTO) 66.3 % (42-78); TOTAL CELLS COUNTED % (AUTO) 100 %; WHITE BLOOD COUNT 9.2 10^3/uL (4.0-10.5)
[2019-08-25 16:14] LABS: ALBUMIN 3.6 g/dL (3.5-5.0); ALKALINE PHOSPHATASE 57 U/L (38-126); ANION GAP 6 (5-19); ASPARTATE AMINO TRANSFERASE 26 U/L (14-36); BILIRUBIN,DIRECT 0.1 mg/dL (0.0-0.4); BILIRUBIN,TOTAL 0.5 mg/dL (0.2-1.3); BLOOD UREA NITROGEN 31 mg/dL (7-20); CALCIUM 8.7 mg/dL (8.4-10.2); CARBON DIOXIDE 32 mmol/L (22-30); CHLORIDE 92 mmol/L (98-107); GLUCOSE 98 mg/dL (75-110); TOTAL PROTEIN 7.2 g/dL (6.3-8.2)
--- NOTE | 2019-08-25 18:44 | PDOC DISCHARGE SUMMARY ---
Impression - Admit/DC Date/PCP Admission Date/Primary Care Provider: 08/15/19 19:59 JEN MAE MD Discharge Date: 08/25/19 - Discharge Diagnosis (1) Acute respiratory failure with hypoxia and hypercarbia Is this a current diagnosis for this admission?: Yes (2) Severe pulmonary arterial systolic hypertension Is this a current diagnosis for this admission?: Yes (3) Arthropathy of knee Is this a current diagnosis for this admission?: Yes (4) Chronic obstructive pulmonary disease (COPD) Is this a current diagnosis for this admission?: Yes (5) Dementia Is this a current diagnosis for this admission?: Yes (6) Hypothyroidism Is this a current diagnosis for this admission?: Yes (7) Type 2 diabetes mellitus Is this a current diagnosis for this admission?: Yes (8) Lower extremity edema Is this a current diagnosis for this admission?: Yes (9) Urinary tract infection Is this a current diagnosis for this admission?: Yes - Additional Information Discharge Activity: Activity As Tolerated, Balance Activity w/Rest, Weigh Daily Referrals: JEN MAE MD [Primary Care Provider] - 09/04/19 10:00 am Prescriptions: Duloxetine HCl [Cymbalta 30 mg Capsule.] 60 mg PO DAILY #90 capsule. Sitagliptin Phosphate [Januvia 50 mg Tablet] 100 mg PO DAILY #90 tablet Fluticasone/Umeclidin/Vilanter [Trelegy 100-62.5-25 Mcg Ellipta 14 Dose/Dpi] 1 inh IH DAILY #2 inhaler Home Medications: Buspirone HCl [Buspar 10 mg Tablet] 10 mg PO Q12 #60 12/31/18 Levothyroxine Sodium [Synthroid] 250 mcg PO Q6AM 07/14/19 Losartan Potassium [Cozaar 25 mg Tablet] 25 mg PO DAILY #90 tablet 07/21/19 Acetaminophen [Tylenol 325 mg Tablet] 325 mg PO Q4HP PRN tablet 08/25/19 Duloxetine HCl [Cymbalta 30 mg Capsule.] 60 mg PO DAILY #90 capsule. 08/25/19 Fluticasone/Umeclidin/Vilanter [Trelegy 100-62.5-25 Mcg Ellipta 14 Dose/Dpi] 1 inh IH DAILY #2 inhaler 07/13/20 Losartan Potassium [Cozaar 25 mg Tablet] 25 mg PO DAILY tablet 08/25/19 Sitagliptin Phosphate [Januvia 50 mg Tablet] 100 mg PO DAILY #90 tablet 08/25/19 History of Present Illiness History of Present Illness: GABINO ALEXANDER is a 74 year old female, She has a history of progressive dementia, chronic obstructive pulmonary disease with secondary severe pulmonary hypertension associated with chronic venous hypertension of the lower extremities.She came to the emergency room for evaluation of shortness of breath, lower extremity edema ,arterial blood gas was done pH 7.19 PO2 42.8, PCO2 86.6, bicarbonate 32.4, patient required noninvasive positive pressure ventilation, BiPAP to support breathing.Patient presented in a similar fashion the last time she was admitted and discharged from this hospital she was recently discharged on July 29, 2019 on that admission a transthoracic echocardiogram was done that demonstrated preserved ejection fraction of left ventricle there was no diastolic dysfunction on the basis of Doppler assessment but she was found to have severe pulmonary hypertension. She is supposed to be on lifelong oxygen and it was recommended very strongly that she obtain a noninvasive positive pressure ventilation device BiPAP or CPAP to have this device she will need to have a sleep study she was supposed to follow-up in the office so that we can arrange a sleep study but she never did.She also have severe osteoarthritis of both knees Hospital Course Hospital Course: Patient was admitted for the management of acute hypercapnic and hypoxemic respiratory failure, she was managed with a noninvasive positive pressure ventilation BiPAP.She also had urinary tract infection due to polymicrobial organisms including E. coli and Klebsiella sensitive to ceftriaxone. She has severe pulmonary hypertension due to very severe COPD patient is discharged home on positive pressure ventilation, Trilogy. The lower extremity edema is from pulmonary hypertension the last transthoracic echocardiogram demonstrated preserved ejection fraction of left ventricle there was no diastolic dysfunction of the left ventricle Physical Exam Vital Signs: Temp Pulse Resp BP Pulse Ox 97.3 F 57 L 17 146/55 H 100 08/25/19 17:25 08/25/19 17:25 08/25/19 17:25 08/25/19 17:25 08/25/19 17:25 Pulse Oximeter Nocturnal Start: 08/19/19 18:13 Freq: RTQ4 Status: Complete Protocol: Document 08/20/19 04:00 LDI (Rec: 08/20/19 05:58 LDI [id number]) Nocturnal Pulse Oximetry Equipment Usage Equipment in Use Nocturnal Spo2 Charge Charge Now Oxygen Delivery Method (includes room Nasal Cannula air) O2 Sat by Pulse Oximetry (92-100) 88 Continuous SpO2 Discontinued Yes: Study end @ approx 0500 Continuous SpO2 Machine # N2 Intake & Output 08/24/19 08/25/19 08/26/19 06:59 06:59 06:59 Intake Total 770 1270 Output Total 625 1500 Balance 145 -230 Weight 79.8 kg 77.4 kg General appearance: PRESENT: no acute distress Eye exam: PRESENT: PERRLA Respiratory exam: PRESENT: clear to auscultation oh Cardiovascular exam: PRESENT: +S1, +S2 GI/Abdominal exam: PRESENT: soft Neurological exam: PRESENT: alert, CN II-XII grossly intact Results Laboratory Results: WBC 9.2 10^3/uL (4.0-10.5) 08/25/19 15:40 RBC 4.00 10^6/uL (3.72-5.28) 08/25/19 15:40 Hgb 10.4 g/dL (12.0-15.5) L 08/25/19 15:40 Hct 33.1 % (36.0-47.0) L 08/25/19 15:40 MCV 83 fl (80-97) 08/25/19 15:40 MCH 26.1 pg (27.0-33.4) L 08/25/19 15:40 MCHC 31.5 g/dL (32.0-36.0) L 08/25/19 15:40 RDW 17.5 % (11.5-14.0) H 08/25/19 15:40 Plt Count 208 10^3/uL (150-450) 08/25/19 15:40 Lymph % (Auto) 18.6 % (13-45) 08/25/19 15:40 [place] % (Auto) 12.6 % (3-13) 08/25/19 15:40 Eos % (Auto) 1.1 % (0-6) 08/25/19 15:40 Baso % (Auto) 1.4 % (0-2) 08/25/19 15:40 Absolute Neuts (auto) 6.1 10^3/uL (1.7-8.2) 08/25/19 15:40 Absolute Lymphs (auto) 1.7 10^3/uL (0.5-4.7) 08/25/19 15:40 Absolute Monos (auto) 1.2 10^3/uL (0.1-1.4) 08/25/19 15:40 Absolute Eos (auto) 0.1 10^3/uL (0.0-0.6) 08/25/19 15:40 Absolute Basos (auto) 0.1 10^3/uL (0.0-0.2) 08/25/19 15:40 Total Counted 100 08/16/19 05:00 Seg Neutrophils % 66.3 % (42-78) 08/25/19 15:40 Seg Neuts % (Manual) 84 % (42-78) H 08/16/19 05:00 Band Neutrophils % 5 % (3-5) 08/16/19 05:00 Lymphocytes % (Manual) 9 % (13-45) L 08/16/19 05:00 Monocytes % (Manual) 2 % (3-13) L 08/16/19 05:00 Eosinophils % (Manual) 0 % (0-6) 08/16/19 05:00 Basophils % (Manual) 0 % (0-2) 08/16/19 05:00 Abs Neuts (Manual) 7.1 10^3/uL (1.7-8.2) 08/16/19 05:00 Abs Lymphs (Manual) 0.7 10^3/uL (0.5-4.7) 08/16/19 05:00 Abs Monocytes (Manual) 0.2 10^3/uL (0.1-1.4) 08/16/19 05:00 Absolute Eos (Manual) 0.0 10^3/uL (0.0-0.6) 08/16/19 05:00 Abs Basophils (Manual) 0.0 10^3/uL (0.0-0.2) 08/16/19 05:00 Platelet Comment ADEQUATE 08/16/19 05:00 Polychromasia 1+ 08/16/19 05:00 Hypochromasia 1+ 08/16/19 05:00 Anisocytosis 1+ 08/16/19 05:00 Ovalocytes 1+ 08/16/19 05:00 PT 14.9 SEC (11.4-15.4) 08/15/19 22:40 INR 1.16 08/15/19 22:40 APTT 28.1 SEC (23.5-35.8) 08/15/19 22:40 Carbonic Acid 2.37 mmol/L (1.05-1.35) H 08/18/19 21:44 HCO3/H2CO3 Ratio 16:1 08/18/19 21:44 ABG pH 7.30 (7.35-7.45) L 08/18/19 21:44 ABG pCO2 78.7 mmHg (35-45) H* 08/18/19 21:44 ABG pO2 63.1 mmHg (80-100) L 08/18/19 21:44 ABG HCO3 38.2 mmol/L (20-24) H 08/18/19 21:44 ABG Total CO2 40.6 mmol/L (21-25) H 08/18/19 21:44 ABG O2 Saturation 88.7 % (94-98) L 08/18/19 21:44 ABG Base Excess 9.8 mmol/L 08/18/19 21:44 FiO2 40% 08/18/19 21:44 Sodium 130.3 mmol/L (137-145) L 08/25/19 15:40 Potassium 5.0 mmol/L (3.6-5.0) 08/25/19 15:40 Chloride 92 mmol/L (98-107) L 08/25/19 15:40 Carbon Dioxide 32 mmol/L (22-30) H 08/25/19 15:40 Anion Gap 6 (5-19) 08/25/19 15:40 BUN 31 mg/dL (7-20) H 08/25/19 15:40 Creatinine 1.25 mg/dL (0.52-1.25) 08/25/19 15:40 Est GFR ( Amer) 51 (>60) L 08/25/19 15:40 Est GFR (MDRD) Non-Af 42 (>60) L 08/25/19 15:40 Glucose 98 mg/dL (75-110) 08/25/19 15:40 POC Glucose 95 mg/dL (70-110) 08/25/19 17:26 Hemoglobin A1c % 6.3 % (4.7-6.0) H 08/16/19 05:00 Calcium 8.7 mg/dL (8.4-10.2) 08/25/19 15:40 Phosphorus 4.3 mg/dL (2.5-4.5) 08/15/19 23:15 Magnesium 2.1 mg/dL (1.6-2.3) 08/15/19 23:15 Total Bilirubin 0.5 mg/dL (0.2-1.3) 08/25/19 15:40 Direct Bilirubin 0.1 mg/dL (0.0-0.4) 08/25/19 15:40 Neonat Total Bilirubin Not Reportable 08/25/19 15:40 Neonat Direct Bilirubin Not Reportable 08/25/19 15:40 Neonat Indirect Bili Not Reportable 08/25/19 15:40 AST 26 U/L (14-36) 08/25/19 15:40 ALT 10 U/L (<35) 08/25/19 15:40 Alkaline Phosphatase 57 U/L (38-126) 08/25/19 15:40 Creatine Kinase 29 U/L (30-135) L 08/16/19 10:49 CK-MB (CK-2) 1.10 ng/mL (<4.55) 08/16/19 10:49 Troponin I < 0.012 ng/mL 08/16/19 10:49 NT-Pro-B Natriuret Pep 6630 pg/mL (<125) H 08/16/19 22:10 Total Protein 7.2 g/dL (6.3-8.2) 08/25/19 15:40 Albumin 3.6 g/dL (3.5-5.0) 08/25/19 15:40 Triglycerides 64 mg/dL (<150) 08/16/19 05:00 Cholesterol 115.15 mg/dL (0-200) 08/16/19 05:00 LDL Cholesterol Direct 60 mg/dL (<100) 08/16/19 05:00 VLDL Cholesterol 13.0 mg/dL (10-31) 08/16/19 05:00 HDL Cholesterol 48 mg/dL (>40) 08/16/19 05:00 Amylase < 30 U/L (30-110) L 08/16/19 05:00 Lipase 14.9 U/L (23-300) L 07/04/20 05:00 TSH 0.47 uIU/mL (0.47-4.68) 08/16/19 05:00 Free T4 1.60 ng/dL (0.78-2.19) 08/16/19 05:00 Urine Color YELLOW 08/15/19 20:50 Urine Appearance CLOUDY 08/15/19 20:50 Urine pH 5.0 (5.0-9.0) 08/15/19 20:50 Ur Specific [place] 1.011 08/15/19 20:50 Urine Protein 100 mg/dL (NEGATIVE) H 08/15/19 20:50 Urine Glucose (UA) NEGATIVE mg/dL (NEGATIVE) 08/15/19 20:50 Urine Ketones NEGATIVE mg/dL (NEGATIVE) 08/15/19 20:50 Urine Blood MODERATE (NEGATIVE) H 08/15/19 20:50 Urine Nitrite POSITIVE (NEGATIVE) H 08/15/19 20:50 Urine Bilirubin NEGATIVE (NEGATIVE) 08/15/19 20:50 Urine Urobilinogen NEGATIVE mg/dL (<2.0) 08/15/19 20:50 Ur Leukocyte Esterase LARGE (NEGATIVE) H 08/15/19 20:50 Urine WBC (Auto) 63 /HPF 08/15/19 20:50 Urine RBC (Auto) 15 /HPF 08/15/19 20:50 U Hyaline Cast (Auto) 9 /LPF 08/15/19 20:50 Urine Bacteria (Auto) 3+ /HPF 08/15/19 20:50 Urine WBC Clumps FEW /HPF 08/15/19 20:50 Squamous Epi Cells Auto 9 /HPF 08/15/19 20:50 Urine Mucus (Auto) RARE /LPF 08/15/19 20:50 Urine Ascorbic Acid NEGATIVE (NEGATIVE) 08/15/19 20:50 Urine Opiates Screen NEGATIVE 08/15/19 20:50 Urine Methadone Screen NEGATIVE 08/15/19 20:50 Ur Barbiturates Screen NEGATIVE 08/15/19 20:50 Ur Phencyclidine Scrn NEGATIVE 08/15/19 20:50 Ur Amphetamines Screen NEGATIVE 08/15/19 20:50 U Benzodiazepines Scrn NEGATIVE 08/15/19 20:50 Urine Cocaine Screen NEGATIVE 08/15/19 20:50 U Marijuana (THC) Screen NEGATIVE 08/15/19 20:50 Influenza A (Rapid) NEGATIVE (NEGATIVE) 08/17/19 11:30 Influenza B (Rapid) NEGATIVE (NEGATIVE) 08/17/19 11:30 SARS-CoV-2 (PCR) NEGATIVE (NEGATIVE) 08/17/19 09:00 Group A Strep Rapid POSITIVE (NEGATIVE) 08/17/19 09:00 08/15/19 08/15/19 08/16/19 17:39 23:15 05:00 CK-MB (CK-2) 1.01 0.94 Troponin I < 0.012 0.015 < 0.012 NT-Pro-B Natriuret Pep 5200 H 08/16/19 08/16/19 10:49 22:10 CK-MB (CK-2) 1.10 Troponin I < 0.012 NT-Pro-B Natriuret Pep 6630 H Impressions: Chest X-Ray 08/15/19 17:49 IMPRESSION: Cardiomegaly with pulmonary edema. Minimal right pleural effusion PE Venous Doppler Study 08/17/19 00:00 IMPRESSION: NO EVIDENCE DVT OR SVT IN EITHER LEG. Stroke Is this a Stroke Patient?: No Acute Heart Failure - Is this a Heart Failure Patient?: No
[2019-08-25] MEDS: INSULIN GLARGINE,HUM.REC.ANLOG 1,000 UNIT/10 ML VIAL SUBCUT SCH (22:49)
[2019-08-25] MEDS: ENOXAPARIN SODIUM INJ 40 MG/0.4 ML DISP.SYRIN SUBCUT SCH (23:17)
[2019-08-26] MEDS: LEVOTHYROXINE SODIUM 0.1 MG TABLET PO SCH (05:54)
[2019-08-26] MEDS: INSULIN LISPRO 100 UNIT/ML 3 ML VIAL SUBCUT SCH ×2 (08:23→11:56)
[2019-08-26] MEDS: FUROSEMIDE 40 MG TABLET PO SCH (08:32)
[2019-08-26] MEDS: SITAGLIPTIN PHOSPHATE 50 MG TABLET PO SCH (09:13)
[2019-08-26] MEDS: ACETAMINOPHEN 325 MG TABLET PO PRN (09:13)
[2019-08-26] MEDS: LOSARTAN POTASSIUM 25 MG TABLET PO SCH (09:13)
[2019-08-26] MEDS: DULOXETINE HCL 30 MG CAPSULE.DR PO SCH (09:14)
[2019-08-26] MEDS: BUSPIRONE HCL 10 MG TABLET PO SCH (09:14)
[2019-08-26] MEDS: FLUTICASONE/UMECLIDIN/VILANTER 100-62.5-25 MCG/DOSE IH SCH (09:17)
[2019-08-26 09:30] VITALS: BP 127/39
== END 2019-08-26 11:45 | disposition home or self-care (01) | DRG 189 ==
LOC: ER 17:14 → EH 19:59 → 3S 21:53
PROVIDERS: ADMIT Internal Medicine; ATTEND Internal Medicine
DX: J96.02 Acute respiratory failure with hypercapnia (principal); N39.0 Urinary tract infection, site not specified; J96.01 Acute respiratory failure with hypoxia; I50.9 Heart failure, unspecified; B96.20 Unspecified Escherichia coli [E. coli] as the cause of diseases classified elsewhere; B96.1 Klebsiella pneumoniae [K. pneumoniae] as the cause of diseases classified elsewhere; I11.0 Hypertensive heart disease with heart failure; I73.9 Peripheral vascular disease, unspecified; J44.9 Chronic obstructive pulmonary disease, unspecified; D64.9 Anemia, unspecified; E03.9 Hypothyroidism, unspecified; E11.42 Type 2 diabetes mellitus with diabetic polyneuropathy; M12.9 Arthropathy, unspecified; G30.1 Alzheimer's disease with late onset; F02.80 Dementia in other diseases classified elsewhere, unspecified severity, without behavioral disturbance, psychotic disturbance, mood disturbance, and anxiety; F17.210 Nicotine dependence, cigarettes, uncomplicated; Z99.81 Dependence on supplemental oxygen
CPT/HCPCS: 36415; 36600; 71045; 80048; 80053; 80061; 80307; 81001; 82150; 82550; 82553; 82803; 82962; 83036; 83690; 83735; 83880; 84100; 84439; 84443; 84484; 85025; 85610; 85730; 87040; 87086; 87088; 87186; 87635; 87804; 87880; 93005; 93010; 93970; 94660; 94762; 96374; 99291; 99292; C9803; J0360; J0696; J1650; J1815; J1940; J3490; J7030; J8499

== ENCOUNTER 2019-09-26 11:29 | Inpatient (IN) | payer MEDICARE ==
--- NOTE | 2019-09-26 11:53 | ER Document Report ---
ED Medical Screen (RME) - General Chief Complaint: Pain All Over Stated Complaint: PAIN ALL OVER Time Seen by Provider: 09/26/19 11:45 Primary Care Provider: JEN MAE MD [Primary Care Provider] - Follow up as needed TRAVEL OUTSIDE OF THE [place] IN LAST 30 DAYS: No - HPI Notes: 09/26/19 11:54e complaints, ports "not feeling well 74-year-old female with a history of COPD, type 2 diabetes, anemia, heart failure presents to the emergency room today with vague complaints and saying she has pain all over, not feeling well today. Patient also reports that she is having some swelling in her legs that has become worse over the last few days. patient is oxygen dependent and wears 3 L at home continuously. Patient reports her last bowel movement was today. Denies any chest pain reports some shortness of breath, denies any nausea vomiting diarrhea, abdominal pain, fevers, chills, numbness or tingling down her arms or legs or face. Patient's PCP is Dr. Mae. Patient states she has been taking her medications without any issues. She just wanted to get checked out. I have greeted and performed a rapid initial assessment of this patient. A comprehensive ED assessment and evaluation of the patient, analysis of test results and completion of the medical decision making process will be conducted by additional ED providers. PHYSICAL EXAMINATION: GENERAL: Chronically ill, well-nourished and in no acute distress. HEAD: Atraumatic, normocephalic. Wearing nasal cannula on 4 L EYES: Pupils equal round extraocular movements intact, conjunctiva are normal. NECK: Normal range of motion CV: s1, s2 regular LUNGS:diminished breath sounds in upper lobes - Related Data Allergies/Adverse Reactions: melon Allergy (Unknown, Verified 08/15/19 18:26) allopurinol [From Zyloprim] Allergy (Verified 08/15/19 18:26) amitriptyline HCl [From Elavil] Allergy (Verified 08/15/19 18:26) belladonna alkaloids [From Bellergal-S] Allergy (Verified 08/15/19 18:26) cefuroxime axetil [From Ceftin] Allergy (Verified 08/15/19 18:26) celecoxib [From Celebrex] Allergy (Verified 08/15/19 18:26) cimetidine [From Tagamet] Allergy (Verified 03/06/18 03:47) codeine [Codeine] Allergy (Verified 08/15/19 18:26) doxepin HCl [From Sinequan] Allergy (Verified 08/15/19 18:26) ergotamine tartrate [From Bellergal-S] Allergy (Verified 08/15/19 18:26) fluoxetine HCl [From Prozac] Allergy (Verified 08/15/19 18:26) hydroxyzine HCl [From Atarax] Allergy (Verified 08/15/19 18:26) indigotindisulfonic acid [From [place]igo [place]] Allergy (Verified 08/15/19 18:26) malathion Allergy (Verified 08/15/19 18:26) mefenamic acid Allergy (Verified 08/15/19 18:26) Milk Containing Products Allergy (Verified 08/15/19 18:26) naproxen sodium [From Anaprox] Allergy (Verified 08/15/19 18:26) nefazodone HCl [From Serzone] Allergy (Verified 08/15/19 18:26) phenylephrine tannate [From [place] CT] Allergy (Verified 08/15/19 18:26) pyrilamine tannate [From [place] CT] Allergy (Verified 08/15/19 18:26) tolterodine tartrate [From Detrol] Allergy (Verified 08/15/19 18:26) trazodone HCl [From Desyrel] Allergy (Verified 08/15/19 18:26) morphine Adverse Reaction (Verified 08/15/19 18:26) renuzil Allergy (Uncoded 01/24/18 17:48) surgical steel Allergy (Uncoded 01/24/18 17:48) Past Medical History - Past Medical History Cardiac Medical History: Reports: Hx Congestive Heart Failure, Hx Hypertension, Hx Peripheral Vascular Disease Pulmonary Medical History: Reports: Hx COPD - on home 4L O2 NC, Hx Pneumonia, Hx Respiratory Failure Neurological Medical History: Denies: Hx Seizures Endocrine Medical History: Reports: Hx Diabetes Mellitus Type 2, Hx Hypothyroidism - w/med noncompliance and hx of myxedema coma Renal/ Medical History: Denies: Hx Hemodialysis, Hx Peritoneal Dialysis GI Medical History: Reports: Hx Gastroesophageal Reflux Disease. Denies: Hx Crohn's Disease, Hx Ulcerative Colitis Musculoskeltal Medical History: Reports Hx Arthritis, Denies Hx Gout, Reports Hx Musculoskeletal Trauma Skin Medical History: Denies Hx Eczema, Denies Hx Psoriasis Psychiatric Medical History: Reports: Hx Dementia, Hx Depression Denies: Hx Bipolar Disorder, Hx Personality Disorder, Hx Schizoaffective Disorder Traumatic Medical History: Denies: Hx Traumatic Brain Injury Past Surgical History: Reports: Hx Cholecystectomy, Hx Orthopedic Surgery - L Wrist. Denies: Hx Hysterectomy - Immunizations Immunizations up to date: No Hx Diphtheria, Pertussis, Tetanus Vaccination: No Doctor's Discharge - Discharge Referrals: JEN MAE MD [Primary Care Provider] - Follow up as needed
--- NOTE | 2019-09-26 12:17 | RADIOLOGY REPORT (SQ) ---
EXAM DESCRIPTION: CHEST SINGLE VIEW IMAGES COMPLETED DATE/TIME: 09/26/2019 12:07 pm REASON FOR STUDY: sob, leg swelling COMPARISON: 08/15/2019 NUMBER OF VIEWS: One view. TECHNIQUE: Single frontal radiographic view of the chest acquired. LIMITATIONS: None. FINDINGS: LUNGS AND PLEURA: No opacities, masses or pneumothorax. No pleural effusion. MEDIASTINUM AND HILAR STRUCTURES: No masses or contour abnormality. HEART AND VASCULATURE: Cardiac enlargement. Vascular congestion. BONES: No acute findings. HARDWARE: None in the chest. OTHER: No other significant finding. IMPRESSION: CARDIAC ENLARGEMENT. VASCULAR CONGESTION. TECHNICAL DOCUMENTATION: JOB ID: [id number] 2010 [employer]- All Rights Reserved Reading location - IP/workstation name: [email or web address]
[2019-09-26 13:08] LABS: VENOUS BLOOD HCO3 28.4 mmol/L (20-32)
[2019-09-26 13:11] LABS: HEMATOCRIT 32.6 % (36.0-47.0); HEMOGLOBIN 9.9 g/dL (12.0-15.5); MEAN CORPUSCULAR HEMOGLOBIN 24.9 pg (27.0-33.4); MEAN CORPUSCULAR HGB CONC 30.4 g/dL (32.0-36.0); MEAN CORPUSCULAR VOLUME 82 fl (80-97); PLATELET COUNT 223 10^3/uL (150-450); RED BLOOD COUNT 3.98 10^6/uL (3.72-5.28); RED CELL DISTRIBUTION WIDTH 19.3 % (11.5-14.0); WHITE BLOOD COUNT 10.9 10^3/uL (4.0-10.5)
[2019-09-26 13:12] LABS: VENOUS BLOOD PCO2 84.8 mmHg (35-63); VENOUS BLOOD PH 7.14 (7.30-7.42)
[2019-09-26 13:29] LABS: ALBUMIN 3.6 g/dL (3.5-5.0); ALKALINE PHOSPHATASE 95 U/L (38-126); ANION GAP 8 (5-19); ASPARTATE AMINO TRANSFERASE 54 U/L (14-36); BILIRUBIN,DIRECT 0.3 mg/dL (0.0-0.4); BILIRUBIN,TOTAL 0.6 mg/dL (0.2-1.3); BLOOD UREA NITROGEN 49 mg/dL (7-20); CALCIUM 7.7 mg/dL (8.4-10.2); CARBON DIOXIDE 28 mmol/L (22-30); CHLORIDE 95 mmol/L (98-107); CREATINE KINASE 56 U/L (30-135); GLUCOSE 133 mg/dL (75-110); POTASSIUM 5.7 mmol/L (3.6-5.0); TOTAL PROTEIN 7.4 g/dL (6.3-8.2)
[2019-09-26 13:40] LABS: TROPONIN I 0.045 ng/mL
[2019-09-26 13:58] LABS: ABSOLUTE LYMPHOCYTES# (MANUAL) 0.8 10^3/uL (0.5-4.7); ABSOLUTE MONOCYTES # (MANUAL) 0.7 10^3/uL (0.1-1.4); ANISOCYTOSIS 2+; BASOPHILS % (MANUAL) 0 % (0-2); EOSINOPHILS % (MANUAL) 1 % (0-6); LYMPHOCYTES % (MANUAL) 7 % (13-45); MONOCYTES % (MANUAL) 6 % (3-13); NUCLEATED RED BLOOD CELLS 1 /100 WBC (0); OVALOCYTES SLIGHT; PLATELET COMMENT ADEQUATE; POLYCHROMASIA SLIGHT; SEGMENTED NEUTROPHILS % (MAN) 86 % (42-78); TEAR DROP CELLS SLIGHT; TOTAL CELLS COUNTED 100
[2019-09-26 14:19] LABS: APPEARANCE,URINE CLOUDY; BILIRUBIN,URINE NEGATIVE (NEGATIVE); COLOR,URINE YELLOW; GLUCOSE, URINE NEGATIVE (NEGATIVE); KETONES,URINE NEGATIVE (NEGATIVE); LEUKOCYTE ESTERASE,URINE MODERATE (NEGATIVE); NITRITE,URINE POSITIVE (NEGATIVE); PROTEIN,URINE 100 mg/dL (NEGATIVE); URINE SPECIFIC GRAVITY 1.012; UROBILINOGEN,URINE NEGATIVE mg/dL (<2.0)
[2019-09-26] MEDS ORDERED: CLINDAMYCIN 600 MG/D5W RTU 600 MG/50 ML RTUPB IV ONE (14:43)
[2019-09-26] MEDS ORDERED: FUROSEMIDE INJ/PF 40 MG/4 ML SDV IV ONE (14:44)
[2019-09-26] MEDS ORDERED: NITROGLYCERIN 2% OINTMENT 1 GM PACKET TP ONE (14:47)
[2019-09-26] MEDS ORDERED: VANCOMYCIN HCL INJ 1000 MG VIAL IV ONE (14:53)
[2019-09-26 15:55] LABS: ARTERIAL BLOOD BASE EXCESS -3.4 mmol/L; ARTERIAL BLOOD H2CO3 2.05 mmol/L (1.05-1.35); ARTERIAL BLOOD HCO3 25.6 mmol/L (20-24); ARTERIAL BLOOD O2 SATURATION 95.3 % (94-98); ARTERIAL BLOOD PCO2 68.1 mmHg (35-45); ARTERIAL BLOOD PO2 95.2 mmHg (80-100); ARTERIAL BLOOD TOTAL CO2 27.7 mmol/L (21-25)
[2019-09-26 15:57] LABS: ARTERIAL BLOOD FIO2 4L
[2019-09-26 15:59] LABS: ARTERIAL BLOOD PH 7.19 (7.35-7.45)
--- NOTE | 2019-09-26 16:38 | ER Document Report ---
Entered by CLARENCE HERNANDEZ SCRIBE 09/26/19 1407 Acting as scribe for:LETICIA DUBON MD ED General - General Chief Complaint: generalized pain Stated Complaint: PAIN ALL OVER Time Seen by Provider: 09/26/19 11:45 Mode of Arrival: Ambulatory Information source: Patient Notes: This 74 year old female patient presents to the emergency department today with complaints of lower extremity pain and swelling. Patient reports that she had similar symptoms one month ago. She is on 3.5 L of home oxygen chronically and does not appear to be short of breath. TRAVEL OUTSIDE OF THE [place] IN LAST 30 DAYS: No - Related Data Allergies/Adverse Reactions: melon Allergy (Unknown, Verified 08/15/19 18:26) allopurinol [From Zyloprim] Allergy (Verified 08/15/19 18:26) amitriptyline HCl [From Elavil] Allergy (Verified 08/15/19 18:26) belladonna alkaloids [From Bellergal-S] Allergy (Verified 08/15/19 18:26) cefuroxime axetil [From Ceftin] Allergy (Verified 08/15/19 18:26) celecoxib [From Celebrex] Allergy (Verified 08/15/19 18:26) cimetidine [From Tagamet] Allergy (Verified 03/06/18 03:47) codeine [Codeine] Allergy (Verified 08/15/19 18:26) doxepin HCl [From Sinequan] Allergy (Verified 08/15/19 18:26) ergotamine tartrate [From Bellergal-S] Allergy (Verified 08/15/19 18:26) fluoxetine HCl [From Prozac] Allergy (Verified 08/15/19 18:26) hydroxyzine HCl [From Atarax] Allergy (Verified 08/15/19 18:26) indigotindisulfonic acid [From Indigo [place]] Allergy (Verified 08/15/19 18:26) malathion Allergy (Verified 08/15/19 18:26) mefenamic acid Allergy (Verified 08/15/19 18:26) Milk Containing Products Allergy (Verified 08/15/19 18:26) naproxen sodium [From Anaprox] Allergy (Verified 08/15/19 18:26) nefazodone HCl [From Serzone] Allergy (Verified 08/15/19 18:26) phenylephrine tannate [From Deconsal CT] Allergy (Verified 08/15/19 18:26) pyrilamine tannate [From Deconsal CT] Allergy (Verified 08/15/19 18:26) tolterodine tartrate [From Detrol] Allergy (Verified 08/15/19 18:26) trazodone HCl [From Desyrel] Allergy (Verified 08/15/19 18:26) morphine Adverse Reaction (Verified 08/15/19 18:26) renuzil Allergy (Uncoded 01/24/18 17:48) surgical steel Allergy (Uncoded 01/24/18 17:48) Past Medical History - General Information source: Patient - Social History Smoking Status: Unknown if Ever Smoked Cigarette use (# per day): No Frequency of alcohol use: None Drug Abuse: None Lives with: Family Family History: Reviewed & Not Pertinent, CAD, DM, Hypertension - Past Medical History Cardiac Medical History: Reports: Hx Congestive Heart Failure, Hx Hypertension, Hx Peripheral Vascular Disease Pulmonary Medical History: Reports: Hx COPD - on home 4L O2 [place], Hx Pneumonia, Hx Respiratory Failure Endocrine Medical History: Reports: Hx Diabetes Mellitus Type 2, Hx Hypothyroidism - w/med noncompliance and hx of myxedema coma GI Medical History: Reports: Hx Gastroesophageal Reflux Disease Musculoskeletal Medical History: Reports Hx Arthritis, Reports Hx Musculoskeletal Trauma Psychiatric Medical History: Reports: Hx Dementia, Hx Depression Past Surgical History: Reports: Hx Cholecystectomy, Hx Orthopedic Surgery - L Wrist - Immunizations Immunizations up to date: No Hx Diphtheria, Pertussis, Tetanus Vaccination: No Review of Systems - Review of Systems Constitutional: No symptoms reported EENT: No symptoms reported Cardiovascular: No symptoms reported Respiratory: No symptoms reported Gastrointestinal: No symptoms reported Genitourinary: No symptoms reported Female Genitourinary: No symptoms reported Musculoskeletal: See HPI, Leg swelling, Ankle swelling Skin: No symptoms reported Hematologic/Lymphatic: No symptoms reported Neurological/Psychological: No symptoms reported -: Yes All other systems reviewed and negative Physical Exam - Vital signs Vitals: Temp Pulse Resp BP Pulse Ox 97.6 F 70 20 110/53 L 94 09/26/19 12:20 09/26/19 12:20 09/26/19 12:20 09/26/19 12:20 09/26/19 12:20 - Notes Notes: Physical Exam: General: Alert. HEENT: Normocephalic. Atraumatic. PERRL. Extraocular movements intact. Oropharynx clear. Neck: Supple. Non-tender. Respiratory: No respiratory distress. Clear and equal breath sounds bilaterally. Cardiovascular: Regular rate and rhythm. Abdominal: Morbidly obese. Yeast in the inguinal folds. Reducible hernia. No distension. Normal Bowel Sounds. Back: No gross abnormalities. Extremities: Moves all four extremities. Upper extremities: Normal inspection. Normal ROM. Lower extremities: 2-3+ edema on the right, 1-2+ on the left. Neurological: Normal cognition. AAOx4. Normal speech. Psychological: Normal affect. Normal Mood. Skin: RLE is erythematous, hot, and painful to the touch. Course - Re-evaluation Re-evalutation: 09/26/19 16:31 Patient resting comfortably at this time. Patient has received medications for congestive heart failure and BiPAP ordered for COPD exacerbation and hypercarbia. 09/26/19 16:33 - Vital Signs Vital signs: Temp Pulse Resp BP Pulse Ox 97.6 F 70 20 110/53 L 96 09/26/19 12:20 09/26/19 12:20 09/26/19 12:20 09/26/19 12:20 09/26/19 15:00 09/26/19 16:32 Vital signs are stable. - Laboratory Result Diagrams: 09/26/19 12:44 09/26/19 12:44 Laboratory results interpreted by me: 09/26/19 09/26/19 09/26/19 12:43 12:44 12:44 WBC 10.9 H Hgb 9.9 L Hct 32.6 L MCH 24.9 L MCHC 30.4 L RDW 19.3 H Seg Neuts % (Manual) 86 H Lymphocytes % (Manual) 7 L Abs Neuts (Manual) 9.4 H D-Dimer Carbonic Acid ABG pH ABG pCO2 ABG HCO3 ABG Total CO2 VBG pH VBG pCO2 Sodium 130.5 L Potassium 5.7 H Chloride 95 L BUN 49 H Creatinine 2.00 H Est GFR ( Amer) 30 L Est GFR (MDRD) Non-Af 24 L Glucose 133 H POC Glucose 137 H Calcium 7.7 L AST 54 H ALT 36 H NT-Pro-B Natriuret Pep Urine Protein Urine Blood Urine Nitrite Ur Leukocyte Esterase 09/26/19 09/26/19 09/26/19 12:44 12:44 12:44 WBC Hgb Hct MCH MCHC RDW Seg Neuts % (Manual) Lymphocytes % (Manual) Abs Neuts (Manual) D-Dimer 2.26 H Carbonic Acid ABG pH ABG pCO2 ABG HCO3 ABG Total CO2 VBG pH 7.14 L* VBG pCO2 84.8 H* Sodium Potassium Chloride BUN Creatinine Est GFR ( Amer) Est GFR (MDRD) Non-Af Glucose POC Glucose Calcium AST ALT NT-Pro-B Natriuret Pep 9580 H Urine Protein Urine Blood Urine Nitrite Ur Leukocyte Esterase 09/26/19 09/26/19 13:23 15:41 WBC Hgb Hct MCH MCHC RDW Seg Neuts % (Manual) Lymphocytes % (Manual) Abs Neuts (Manual) D-Dimer Carbonic Acid 2.05 H ABG pH 7.19 L* ABG pCO2 68.1 H ABG HCO3 25.6 H ABG Total CO2 27.7 H VBG pH VBG pCO2 Sodium Potassium Chloride BUN Creatinine Est GFR ( Amer) Est GFR (MDRD) Non-Af Glucose POC Glucose Calcium AST ALT NT-Pro-B Natriuret Pep Urine Protein 100 H Urine Blood SMALL H Urine Nitrite POSITIVE H Ur Leukocyte Esterase MODERATE H 09/26/19 16:33 Laboratories are within normal limits except there does appear to be a urinary tract infection and perhaps hemolysis of the blood draw with a potassium of 5.7. This lab results should be repeated. - Diagnostic Test Radiology reviewed: Image reviewed, Reports reviewed Radiology results interpreted by me: 0 chest x-ray shows congestive heart failure no infiltrate noted. 09/26/19 16:34 - EKG Interpretation by Me Additional EKG results interpreted by me: 09/26/19 16:37 Twelve-lead EKG shows normal sinus rhythm bradycardia rate at 59 occasional PAC, right axis deviation, nonspecific ST-T wave changes in anterior lateral leads otherwise no STEMI no other acute process Discharge - Discharge Clinical Impression: COPD exacerbation, Congestive heart failure, Type 2 diabetes mellitus, Cellulitis of lower extremity, Acute respiratory failure with hypercapnia Condition: Good Disposition: ADMITTED INPATIENT Admitting Provider: [facility] Admitted: [facility] I personally performed the services described in the documentation, reviewed and edited the documentation which was dictated to the scribe in my presence, and it accurately records my words and actions.
--- NOTE | 2019-09-26 16:39 | EKG REPORT ---
SEVERITY:- ABNORMAL ECG - SINUS RHYTHM ATRIAL PREMATURE COMPLEX RIGHT AXIS DEVIATION NONSPECIFIC T ABNORMALITIES, ANT-LAT LEADS : Confirmed by: Bebeto Garcia MD 26-Sep-2019 16:38:25
--- NOTE | 2019-09-26 17:37 | RADIOLOGY REPORT (SQ) ---
EXAM DESCRIPTION: VENOUS BILATERAL LOWER IMAGES COMPLETED DATE/TIME: 09/26/2019 5:26 pm REASON FOR STUDY: bilateral lower edema COMPARISON: 08/17/2019 TECHNIQUE: Dynamic and static cam scale and color images acquired of both lower extremity venous sy stems. Selected spectral images acquired with additional compression and augmentation maneuvers. Imag es stored on PACS. LIMITATIONS: None. FINDINGS: RIGHT LEG COMMON FEMORAL AND FEMORAL: Normal phasicity, compression and augmentation. No visualized echogenic m aterial on cam scale. No defects on color images. The distal femoral vein was not seen. POPLITEAL: Normal compression and augmentation. No visualized echogenic material on cam scale. No de fects on color images. CALF VESSELS: Normal compression and augmentation. No visualized echogenic material on cam scale. No defects on color image. Peroneal veins were not seen. GSV AND SSV: Normal compression. No visualized echogenic material on cam scale. No defects on color images. ANY DEEP VENOUS INSUFFICIENCY: Not evaluated. ANY EVIDENCE OF POPLITEAL CYST: No. OTHER: Considerable edema. LEFT LEG COMMON FEMORAL AND FEMORAL: Normal phasicity, compression and augmentation. No visualized echogenic m aterial on cam scale. No defects on color images. Distal femoral vein was not seen. POPLITEAL: Normal compression and augmentation. No visualized echogenic material on cam scale. No de fects on color images. CALF VESSELS: Normal compression and augmentation. No visualized echogenic material on cam scale. No defects on color images. Peroneal veins were not seen. GSV AND SSV: Normal compression. No visualized echogenic material on cam scale. No defects on color images. ANY DEEP VENOUS INSUFFICIENCY: Not evaluated. ANY EVIDENCE POPLITEAL CYST: No. OTHER: Considerable edema. IMPRESSION: Study slightly limited by edema. No evidence of acute DVT or SVT. TECHNICAL DOCUMENTATION: JOB ID: [id number] 2010 [employer]- All Rights Reserved Reading location - IP/workstation name: [email or web address]
[2019-09-26] MEDS ORDERED: IPRATROPIUM/ALBUTEROL 0.5-2.5 MG/3 ML AMPUL NEB PRN (19:10)
[2019-09-26] MEDS ORDERED: VANCOMYCIN HCL 0 MG in DEXTROSE 5%-WATER 250 ML IV NR (19:30)
--- NOTE | 2019-09-26 19:46 | PDOC H&P ---
History of Present Illness Admission Date/PCP: 09/26/19 16:29 JEN MAE MD History of Present Illness: GABINO ALEXANDER is a 74 year old female, She is well-known to me, she has a hi story of underlying dementia, chronic obstructive pulmonary disease associated with pulmonary hypertension with chronic venous hypertension of the lower extremities, she has preserved ejection fraction of left ventricle with no diastolic dysfunction. She also have a history of rheumatoid arthritis, the last time she was seen in the office she was started on methotrexate for rheumatoid arthritis but the medication reconciled did not include methotrexate suggesting nonadherence. She came to the emergency room on this visit for evaluation of generalized body ache, Worsening bilateral lower extremity edema she has no shortness of breath, the last time she was discharged from the hospital barely over a month ago, she was discharged on noninvasive positive pressure ventilation, Trilogy. She has chronic venous hypertension of the lower extremity with a superimposed cellulitis at this time in the emergency room the ED physician was concerned about deep vein thrombosis, a venous Doppler was ordered, negative for DVT, she also have elevated d-dimer, she is not having any shortness of breath, no chest pain.The arterial blood gas on FiO2 4 L, pH 7.19, PCO2 68.1, PO2 94.1, bicarbonate 25.6, consistent with acute respiratory acidosis Past Medical History Cardiac Medical History: Reports: Hypertension, Peripheral Vascular Disease Pulmonary Medical History: Reports: Chronic Obstructive Pulmonary Disease (COPD) - on home 4L O2 [place], Pneumonia, Respiratory Failure Endocrine Medical History: Reports: Diabetes Mellitus Type 2, Hypothyroidism - w/med noncompliance and hx of myxedema coma GI Medical History: Reports: Gastroesophageal Reflux Disease Musculoskeltal Medical History: Reports: Arthritis Psychiatric Medical History: Reports: Dementia, Depression Traumatic Medical History: Denies: Traumatic Brain Injury Past Surgical History Past Surgical History: Reports: Cholecystectomy, Orthopedic Surgery - L Wrist Social History Lives with: Family Smoking Status: Current Every Day Smoker Frequency of Alcohol Use: None Hx Recreational Drug Use: No Drugs: None Hx Prescription Drug Abuse: No Family History Family History: Reviewed & Not Pertinent, CAD, DM, Hypertension Parental Family History Reviewed: Yes Children Family History Reviewed: Yes Sibling(s) Family History Reviewed.: Yes Medication/Allergy Home Medications: Buspirone HCl [Buspar 10 mg Tablet] 10 mg PO Q12 #60 12/31/18 Levothyroxine Sodium [Synthroid] 250 mcg PO Q6AM 07/14/19 Duloxetine HCl [Cymbalta 30 mg Capsule.] 60 mg PO DAILY #90 capsule. 08/25/19 Fluticasone/Umeclidin/Vilanter [Trelegy 100-62.5-25 Mcg Ellipta 14 Dose/Dpi] 1 inh IH DAILY #2 inhaler 08/25/19 Losartan Potassium [Cozaar 25 mg Tablet] 25 mg PO DAILY tablet 08/25/19 Allergies/Adverse Reactions: melon Allergy (Unknown, Verified 08/15/19 18:26) allopurinol [From Zyloprim] Allergy (Verified 08/15/19 18:26) amitriptyline HCl [From Elavil] Allergy (Verified 08/15/19 18:26) belladonna alkaloids [From Bellergal-S] Allergy (Verified 08/15/19 18:26) cefuroxime axetil [From Ceftin] Allergy (Verified 08/15/19 18:26) celecoxib [From Celebrex] Allergy (Verified 08/15/19 18:26) cimetidine [From Tagamet] Allergy (Verified 03/06/18 03:47) codeine [Codeine] Allergy (Verified 08/15/19 18:26) doxepin HCl [From Sinequan] Allergy (Verified 08/15/19 18:26) ergotamine tartrate [From Bellergal-S] Allergy (Verified 08/15/19 18:26) fluoxetine HCl [From Prozac] Allergy (Verified 08/15/19 18:26) hydroxyzine HCl [From Atarax] Allergy (Verified 08/15/19 18:26) indigotindisulfonic acid [From Indigo [place]] Allergy (Verified 08/15/19 18:26) malathion Allergy (Verified 08/15/19 18:26) mefenamic acid Allergy (Verified 08/15/19 18:26) Milk Containing Products Allergy (Verified 08/15/19 18:26) naproxen sodium [From Anaprox] Allergy (Verified 08/15/19 18:26) nefazodone HCl [From Serzone] Allergy (Verified 08/15/19 18:26) phenylephrine tannate [From Deconsal CT] Allergy (Verified 08/15/19 18:26) pyrilamine tannate [From Deconsal CT] Allergy (Verified 08/15/19 18:26) tolterodine tartrate [From Detrol] Allergy (Verified 08/15/19 18:26) trazodone HCl [From Desyrel] Allergy (Verified 08/15/19 18:26) morphine Adverse Reaction (Verified 08/15/19 18:26) renuzil Allergy (Uncoded 01/24/18 17:48) surgical steel Allergy (Uncoded 01/24/18 17:48) Review of Systems Constitutional: PRESENT: fatigue Eyes: ABSENT: visual disturbances Ears: ABSENT: hearing changes Cardiovascular: ABSENT: chest pain, dyspnea on exertion, edema, orthropnea, palpitations Respiratory: ABSENT: cough, hemoptysis Gastrointestinal: ABSENT: abdominal pain, constipation, diarrhea, hematemesis, hematochezia, nausea, vomiting Genitourinary: ABSENT: dysuria, hematuria Musculoskeletal: PRESENT: back pain. ABSENT: joint swelling Integumentary: PRESENT: erythema Neurological: PRESENT: weakness. ABSENT: abnormal gait, abnormal speech, confusion, dizziness, focal weakness, syncope Psychiatric: ABSENT: anxiety, depression, homidical ideation, suicidal ideation Endocrine: ABSENT: cold intolerance, heat intolerance, menstrual abnormalities, polydipsia, polyuria Hematologic/Lymphatic: ABSENT: easy bleeding, easy bruising, lymphadenopathy Physical Exam Vital Signs: Temp Pulse Resp BP Pulse Ox 97.6 F 70 30 H 110/53 L 94 09/26/19 12:20 09/26/19 12:20 09/26/19 16:03 09/26/19 12:20 09/26/19 16:03 Intake & Output 09/25/19 09/26/19 09/27/19 06:59 06:59 06:59 Intake Total 50 Balance 50 Weight 81.647 kg General appearance: PRESENT: mild distress Head exam: PRESENT: atraumatic, normocephalic Eye exam: PRESENT: PERRLA Neck exam: PRESENT: full ROM Respiratory exam: PRESENT: clear to auscultation oh Cardiovascular exam: PRESENT: RRR, +S1, +S2 Vascular exam: PRESENT: normal capillary refill GI/Abdominal exam: PRESENT: normal bowel sounds, soft Rectal exam: PRESENT: deferred Extremities exam: PRESENT: pedal edema, tenderness, other - Bilateral lower extremity edema, erythema of the legs right more than left Neurological exam: PRESENT: alert, CN II-XII grossly intact Psychiatric exam: PRESENT: appropriate affect, normal mood. ABSENT: homicidal ideation, suicidal ideation Skin exam: PRESENT: dry, intact, warm Results Laboratory Results: 09/26/19 12:44 09/26/19 18:40 09/26/19 09/26/19 09/26/19 12:44 12:44 12:44 WBC 10.9 H RBC 3.98 Hgb 9.9 L Hct 32.6 L MCV 82 MCH 24.9 L MCHC 30.4 L RDW 19.3 H Plt Count 223 Seg Neutrophils % Not Reportable Carbonic Acid HCO3/H2CO3 Ratio ABG pH ABG pCO2 ABG pO2 ABG HCO3 ABG O2 Saturation ABG Base Excess VBG pH 7.14 L* VBG pCO2 84.8 H* VBG HCO3 28.4 VBG Base Excess -2.0 FiO2 Sodium 130.5 L Potassium 5.7 H Chloride 95 L Carbon Dioxide 28 Anion Gap 8 BUN 49 H Creatinine 2.00 H Est GFR ( Amer) 30 L Glucose 133 H Calcium 7.7 L Total Bilirubin 0.6 AST 54 H Alkaline Phosphatase 95 Total Protein 7.4 Albumin 3.6 Lipase 25.5 Urine Color Urine Appearance Urine pH Ur Specific [place] Urine Protein Urine Glucose (UA) Urine Ketones Urine Blood Urine Nitrite Ur Leukocyte Esterase Urine WBC (Auto) Urine RBC (Auto) 09/26/19 09/26/19 09/26/19 13:23 15:41 18:40 WBC RBC Hgb Hct MCV MCH MCHC RDW Plt Count Seg Neutrophils % Carbonic Acid 2.05 H HCO3/H2CO3 Ratio 12:1 ABG pH 7.19 L* ABG pCO2 68.1 H ABG pO2 95.2 ABG HCO3 25.6 H ABG O2 Saturation 95.3 ABG Base Excess -3.4 VBG pH VBG pCO2 VBG HCO3 VBG Base Excess FiO2 4L Sodium Potassium 5.7 H Chloride Carbon Dioxide Anion Gap BUN Creatinine Est GFR ( Amer) Glucose Calcium Total Bilirubin AST Alkaline Phosphatase Total Protein Albumin Lipase Urine Color YELLOW Urine Appearance CLOUDY Urine pH 5.0 Ur Specific [place] 1.012 Urine Protein 100 H Urine Glucose (UA) NEGATIVE Urine Ketones NEGATIVE Urine Blood SMALL H Urine Nitrite POSITIVE H Ur Leukocyte Esterase MODERATE H Urine WBC (Auto) 93 Urine RBC (Auto) 3 09/26/19 09/26/19 12:44 12:44 Creatine Kinase 56 Troponin I 0.045 NT-Pro-B Natriuret Pep 9580 H Impressions: Chest X-Ray 09/26/19 11:49 IMPRESSION: CARDIAC ENLARGEMENT. VASCULAR CONGESTION. Venous Doppler Study 09/26/19 14:49 IMPRESSION: Study slightly limited by edema. No evidence of acute DVT or SVT. Assessment & Plan - Diagnosis (1) Acute hypercapnic respiratory failure Is this a current diagnosis for this admission?: Yes Plan: Patient presently requiring noninvasive positive pressure ventilation with BiPAP (2) Acute respiratory acidosis Is this a current diagnosis for this admission?: Yes Plan: She has acute respiratory acidosis due to hypercapnia from respiratory failure (3) Rheumatoid arthritis Qualifiers: Rheumatoid arthritis location: multiple sites Rheumatoid factor presence: with rheumatoid factor Qualified Code(s): M05.79 - Rheumatoid arthritis with rheumatoid factor of multiple sites without organ or systems involvement Is this a current diagnosis for this admission?: Yes Plan: Patient with rheumatoid arthritis, she was started on methotrexate outpatient this was never initiated, there is presently acute kidney injury, start prednisone 20 mg p.o. daily (4) Acute kidney injury Is this a current diagnosis for this admission?: Yes (5) Cellulitis of lower extremity Qualifiers: Laterality: right Qualified Code(s): L03.115 - Cellulitis of right lower limb Is this a current diagnosis for this admission?: Yes Plan: She has bilateral lower extremity cellulitis right more than left, she has a predisposition to develop cellulitis because of her chronic leg edema, she is not compliant with the use of compression stockings which could mitigate against cellulitis, she will be treated with IV antibiotic to cover MRSA and other organisms, start Zyvox and aztreonam (6) Type 2 diabetes mellitus Qualifiers: Diabetes mellitus mcfp insulin use: without lobsterman use Diabetes mellitus complication status: with neurologic complications Diabetes mellitus complication detail: with polyneuropathy Qualified Code(s): E11.42 - Type 2 diabetes mellitus with diabetic polyneuropathy Is this a current diagnosis for this admission?: Yes (7) Dementia Qualifiers: Dementia type: Alzheimer's disease Alzheimer's disease onset: late-onset Dementia behavioral disturbance: without behavioral disturbance Qualified Code(s): G30.1 - Alzheimer's disease with late onset; F02.80 - Dementia in other diseases classified elsewhere without behavioral disturbance Is this a current diagnosis for this admission?: Yes Plan: She has underlying dementia (8) Hypothyroidism Qualifiers: Hypothyroidism type: unspecified Is this a current diagnosis for this admission?: Yes (9) Severe pulmonary arterial systolic hypertension Is this a current diagnosis for this admission?: Yes - Time Time Spent: Greater than 70 Minutes Critical Time spent with patient: 35 or more minutes Smoking Cessation Education: over 10 minutes Medications reviewed and adjusted accordingly: Yes Anticipated Discharge Disposition: Home, Self Care Anticipated Discharge Timeframe: 7 days - Inpatient Certification Based on my medical assessment, after consideration of the patient's comorbidities, presenting symptoms, or acuity I expect that the services needed warrant INPATIENT care.: Yes I certify that my determination is in accordance with my understanding of Medicare's requirements for reasonable and necessary INPATIENT services [42 CFR 412.3e].: Yes Medical Necessity: Need For IV Fluids
[2019-09-26 20:08] LABS: AMYLASE < 30 U/L (30-110); PHOSPHORUS 5.5 mg/dL (2.5-4.5)
[2019-09-26 20:32] LABS: FREE T4 (FREE THYROXINE) 1.51 ng/dL (0.78-2.19)
[2019-09-26 20:37] LABS: INTERNATIONAL RATION (INR) 1.23; PROTHROMBIN TIME 15.7 SEC (11.4-15.4)
[2019-09-26 20:38] LABS: PARTIAL THROMBOPLASTIN TIME 30.5 SEC (23.5-35.8)
[2019-09-26 20:46] LABS: THYROID STIMULATING HORMONE 4.03 uIU/mL (0.47-4.68)
[2019-09-26 20:59] LABS: CREATINE KINASE MB 2.98 ng/mL (<4.55); TROPONIN I 0.036 ng/mL
[2019-09-26] MEDS: HEPARIN SOD (PORCINE) 5,000 UNIT/ML 1 ML VIAL SUBCUT SCH ×2 (22:11→23:44)
[2019-09-26] MEDS ORDERED: DEXTROSE 40% GEL 15 GM TUBE PO PRN (22:30)
[2019-09-26] MEDS ORDERED: DEXTROSE 50%-WATER SYRINGE 25 GM/50 ML DOSE IV PRN (22:30)
[2019-09-26] MEDS ORDERED: GLUCAGON,HUMAN RECOMB 1 MG INJ IM PRN (22:30)
[2019-09-26] MEDS ORDERED: DEXTROSE 40% GEL 15 GM TUBE X 2 PO PRN (22:30)
[2019-09-26] MEDS ORDERED: DEXTROSE 50%-WATER SYRINGE 12.5 GM/25 ML DOSE IV PRN (22:30)
[2019-09-26] MEDS ORDERED: AZTREONAM INJ 1 GM VIAL ONE (22:52)
[2019-09-26] MEDS: INSULIN LISPRO 100 UNIT/ML 3 ML VIAL SUBCUT SCH (23:24)
[2019-09-26] MEDS: AZTREONAM 1 GM in DEXTROSE 5%-WATER 50 ML IV SCH ×2 (23:39→23:44)
[2019-09-27 03:27] LABS: ABSOLUTE BASOPHILS # (AUTO) 0.1 10^3/uL (0.0-0.2); ABSOLUTE EOSINOPHILS # (AUTO) 0.2 10^3/uL (0.0-0.6); ABSOLUTE LYMPHOCYTES (AUTO) 1.1 10^3/uL (0.5-4.7); ABSOLUTE MONOCYTES (AUTO) 0.8 10^3/uL (0.1-1.4); ABSOLUTE NEUT (AUTO) 9.2 10^3/uL (1.7-8.2); BASOPHILS % (AUTO) 0.7 % (0-2); EOSINOPHILS % (AUTO) 2.2 % (0-6); HEMATOCRIT 30.2 % (36.0-47.0); HEMOGLOBIN 9.1 g/dL (12.0-15.5); LYMPHOCYTES % (AUTO) 9.3 % (13-45); MEAN CORPUSCULAR HEMOGLOBIN 24.5 pg (27.0-33.4); MEAN CORPUSCULAR HGB CONC 30.1 g/dL (32.0-36.0); MEAN CORPUSCULAR VOLUME 81 fl (80-97); MONOCYTES % (AUTO) 6.7 % (3-13); PLATELET COUNT 206 10^3/uL (150-450); RED BLOOD COUNT 3.72 10^6/uL (3.72-5.28); RED CELL DISTRIBUTION WIDTH 18.9 % (11.5-14.0); SEGMENTED NEUTROPHILS % (AUTO) 81.1 % (42-78); TOTAL CELLS COUNTED % (AUTO) 100 %; WHITE BLOOD COUNT 11.3 10^3/uL (4.0-10.5)
[2019-09-27 03:58] LABS: ALKALINE PHOSPHATASE 85 U/L (38-126); ANION GAP 9 (5-19); ASPARTATE AMINO TRANSFERASE 36 U/L (14-36); BILIRUBIN,DIRECT 0.1 mg/dL (0.0-0.4); BILIRUBIN,TOTAL 0.4 mg/dL (0.2-1.3); BLOOD UREA NITROGEN 47 mg/dL (7-20); CALCIUM 7.9 mg/dL (8.4-10.2); CARBON DIOXIDE 27 mmol/L (22-30); CHLORIDE 98 mmol/L (98-107); CHOLESTEROL 73.45 mg/dL (0-200); GLUCOSE 146 mg/dL (75-110); POTASSIUM 5.4 mmol/L (3.6-5.0); TOTAL PROTEIN 6.2 g/dL (6.3-8.2); TRIGLYCERIDES 74 mg/dL (<150)
[2019-09-27 04:07] LABS: CREATINE KINASE MB 2.62 ng/mL (<4.55); TROPONIN I 0.023 ng/mL
[2019-09-27 04:09] LABS: DIRECT LDL 42 mg/dL (<100)
[2019-09-27 04:39] LABS: URINE AMPHETAMINES SCREEN NEGATIVE; URINE BARBITURATES SCREEN NEGATIVE; URINE BENZODIAZEPINES SCREEN NEGATIVE; URINE COCAINE SCREEN NEGATIVE; URINE MARIJUANA (THC) SCREEN NEGATIVE; URINE METHADONE SCREEN NEGATIVE; URINE PHENCYCLIDINE SCREEN NEGATIVE
[2019-09-27] MEDS: LEVOTHYROXINE SODIUM 0.15 MG TABLET PO SCH (05:23)
[2019-09-27] MEDS: HEPARIN SOD (PORCINE) 5,000 UNIT/ML 1 ML VIAL SUBCUT SCH ×3 (05:24→21:48)
[2019-09-27] MEDS: LEVOTHYROXINE SODIUM 0.1 MG TABLET PO SCH (05:24)
[2019-09-27] MEDS: AZTREONAM 1 GM in DEXTROSE 5%-WATER 50 ML IV SCH ×3 (05:24→21:48)
[2019-09-27] MEDS ORDERED: (PENDING PHARMACY ID) (Levothyroxine Sodium [Synthroid] 250 MCG) PO SCH (06:00)
[2019-09-27] MEDS: INSULIN LISPRO 100 UNIT/ML 3 ML VIAL SUBCUT SCH ×4 (07:31→22:57)
[2019-09-27 09:30] LABS: CREATINE KINASE MB 2.74 ng/mL (<4.55); TROPONIN I 0.024 ng/mL
[2019-09-27] MEDS: ACETAMINOPHEN 325 MG TABLET PO PRN ×2 (09:34→21:49)
[2019-09-27] MEDS: NYSTATIN TOPICAL POWDER 15 GM TP SCH ×3 (09:35→17:34)
--- NOTE | 2019-09-27 15:05 | PDOC PROGRESS REPORT ---
Subjective Progress Note for:: 09/27/19 Subjective:: Patient seen by the bedside, she presently not requiring noninvasive positive pressure ventilation, she complain of pain of the joints she has underlining rheumatoid arthritis affecting multiple joints Reason For Visit: ACUTE HYPERCAPNIC RESPIRATORY FAILURE,EXTENSIVE Physical Exam Vital Signs: Temp Pulse Resp BP Pulse Ox 97.6 F 60 20 115/44 L 96 09/27/19 11:43 09/27/19 11:43 09/27/19 11:43 09/27/19 11:43 09/27/19 11:43 Intake & Output 09/26/19 09/27/19 09/28/19 06:59 06:59 06:59 Intake Total 450 482 Output Total 750 Balance 450 -268 Weight 90.4 kg General appearance: PRESENT: no acute distress Eye exam: PRESENT: PERRLA Respiratory exam: PRESENT: clear to auscultation oh Cardiovascular exam: PRESENT: +S1, +S2 GI/Abdominal exam: PRESENT: soft Neurological exam: PRESENT: alert, CN II-XII grossly intact Results Laboratory Results: 09/27/19 03:17 09/27/19 03:17 09/26/19 09/26/19 09/26/19 15:41 18:40 18:40 WBC RBC Hgb Hct MCV MCH MCHC RDW Plt Count Seg Neutrophils % Carbonic Acid 2.05 H HCO3/H2CO3 Ratio 12:1 ABG pH 7.19 L* ABG pCO2 68.1 H ABG pO2 95.2 ABG HCO3 25.6 H ABG O2 Saturation 95.3 ABG Base Excess -3.4 FiO2 4L Sodium Potassium 5.7 H Chloride Carbon Dioxide Anion Gap BUN Creatinine Est GFR ( Amer) Glucose Calcium Phosphorus 5.5 H Magnesium 2.2 Total Bilirubin AST Alkaline Phosphatase Ammonia Total Protein Albumin Triglycerides Cholesterol LDL Cholesterol Direct VLDL Cholesterol HDL Cholesterol Amylase < 30 L Lipase 27.1 TSH Free T4 09/26/19 09/26/19 09/27/19 18:40 20:11 03:17 WBC 11.3 H RBC 3.72 Hgb 9.1 L Hct 30.2 L MCV 81 MCH 24.5 L MCHC 30.1 L RDW 18.9 H Plt Count 206 Seg Neutrophils % 81.1 H Carbonic Acid HCO3/H2CO3 Ratio ABG pH ABG pCO2 ABG pO2 ABG HCO3 ABG O2 Saturation ABG Base Excess FiO2 Sodium Potassium Chloride Carbon Dioxide Anion Gap BUN Creatinine Est GFR ( Amer) Glucose Calcium Phosphorus Magnesium Total Bilirubin AST Alkaline Phosphatase Ammonia 10.1 Total Protein Albumin Triglycerides Cholesterol LDL Cholesterol Direct VLDL Cholesterol HDL Cholesterol Amylase Lipase TSH 4.03 Free T4 1.51 09/27/19 03:17 WBC RBC Hgb Hct MCV MCH MCHC RDW Plt Count Seg Neutrophils % Carbonic Acid HCO3/H2CO3 Ratio ABG pH ABG pCO2 ABG pO2 ABG HCO3 ABG O2 Saturation ABG Base Excess FiO2 Sodium 133.5 L Potassium 5.4 H Chloride 98 Carbon Dioxide 27 Anion Gap 9 BUN 47 H Creatinine 1.73 H Est GFR ( Amer) 35 L Glucose 146 H Calcium 7.9 L Phosphorus Magnesium Total Bilirubin 0.4 AST 36 Alkaline Phosphatase 85 Ammonia Total Protein 6.2 L Albumin 3.0 L Triglycerides 74 Cholesterol 73.45 LDL Cholesterol Direct 42 VLDL Cholesterol 15.0 HDL Cholesterol 23 L Amylase Lipase TSH Free T4 09/26/19 09/26/19 09/26/19 12:44 12:44 20:11 Creatine Kinase 56 CK-MB (CK-2) Troponin I 0.045 NT-Pro-B Natriuret Pep 9580 H 8430 H 09/26/19 09/26/19 09/27/19 20:11 20:11 03:17 Creatine Kinase 64 53 CK-MB (CK-2) 2.98 Troponin I 0.036 NT-Pro-B Natriuret Pep 09/27/19 09/27/19 09/27/19 03:17 08:25 08:25 Creatine Kinase 53 CK-MB (CK-2) 2.62 2.74 Troponin I 0.023 0.024 NT-Pro-B Natriuret Pep Impressions: Chest X-Ray 09/26/19 11:49 IMPRESSION: CARDIAC ENLARGEMENT. VASCULAR CONGESTION. Venous Doppler Study 09/26/19 14:49 IMPRESSION: Study slightly limited by edema. No evidence of acute DVT or SVT. Assessment & Plan - Diagnosis (1) Acute hypercapnic respiratory failure Is this a current diagnosis for this admission?: Yes Plan: Patient presently not requiring BiPAP (2) Acute respiratory acidosis Is this a current diagnosis for this admission?: Yes (3) Rheumatoid arthritis Qualifiers: Rheumatoid arthritis location: multiple sites Rheumatoid factor presence: with rheumatoid factor Qualified Code(s): M05.79 - Rheumatoid arthritis with rheumatoid factor of multiple sites without organ or systems involvement Is this a current diagnosis for this admission?: Yes Plan: Patient started on prednisone (4) Acute kidney injury Is this a current diagnosis for this admission?: Yes Plan: The blood work today demonstrated improved serum creatinine (5) Cellulitis of lower extremity Qualifiers: Laterality: right Qualified Code(s): L03.115 - Cellulitis of right lower limb Is this a current diagnosis for this admission?: Yes Plan: She will continue present IV antibiotic for cellulitis (6) Type 2 diabetes mellitus Qualifiers: Diabetes mellitus skilled nursing insulin use: without moth exterminator use Diabetes mellitus complication status: with neurologic complications Diabetes mellitus complication detail: with polyneuropathy Qualified Code(s): E11.42 - Type 2 diabetes mellitus with diabetic polyneuropathy Is this a current diagnosis for this admission?: Yes (7) Dementia Qualifiers: Dementia type: Alzheimer's disease Alzheimer's disease onset: late-onset Dementia behavioral disturbance: without behavioral disturbance Qualified Code(s): G30.1 - Alzheimer's disease with late onset; F02.80 - Dementia in other diseases classified elsewhere without behavioral disturbance Is this a current diagnosis for this admission?: Yes (8) Hypothyroidism Qualifiers: Hypothyroidism type: unspecified Is this a current diagnosis for this admission?: Yes (9) Severe pulmonary arterial systolic hypertension Is this a current diagnosis for this admission?: Yes - Time Time Spent with patient: 35 or more minutes Level of Care: IMCU Medications reviewed and adjusted accordingly: Yes Anticipated DC Timeframe: within 72 hours, Other
[2019-09-27] MEDS: PREDNISONE 20 MG TABLET PO SCH (15:44)
[2019-09-27] MEDS: VANCOMYCIN HCL 750 MG in DEXTROSE 5%-WATER 250 ML IV SCH (22:57)
[2019-09-28] MEDS: LEVOTHYROXINE SODIUM 0.15 MG TABLET PO SCH (05:20)
[2019-09-28] MEDS: LEVOTHYROXINE SODIUM 0.1 MG TABLET PO SCH (05:21)
[2019-09-28] MEDS: HEPARIN SOD (PORCINE) 5,000 UNIT/ML 1 ML VIAL SUBCUT SCH ×3 (05:21→22:01)
[2019-09-28] MEDS: AZTREONAM 1 GM in DEXTROSE 5%-WATER 50 ML IV SCH ×3 (05:22→22:02)
[2019-09-28 05:23] LABS: HEMATOCRIT 30.7 % (36.0-47.0); HEMOGLOBIN 9.5 g/dL (12.0-15.5); MEAN CORPUSCULAR HEMOGLOBIN 24.7 pg (27.0-33.4); MEAN CORPUSCULAR HGB CONC 30.9 g/dL (32.0-36.0); MEAN CORPUSCULAR VOLUME 80 fl (80-97); PLATELET COUNT 256 10^3/uL (150-450); RED BLOOD COUNT 3.84 10^6/uL (3.72-5.28); RED CELL DISTRIBUTION WIDTH 18.6 % (11.5-14.0); WHITE BLOOD COUNT 10.8 10^3/uL (4.0-10.5)
[2019-09-28 06:07] LABS: ABSOLUTE LYMPHOCYTES# (MANUAL) 0.5 10^3/uL (0.5-4.7); ABSOLUTE MONOCYTES # (MANUAL) 0.1 10^3/uL (0.1-1.4); BASOPHILS % (MANUAL) 0 % (0-2); EOSINOPHILS % (MANUAL) 0 % (0-6); LYMPHOCYTES % (MANUAL) 5 % (13-45); MONOCYTES % (MANUAL) 1 % (3-13); SEGMENTED NEUTROPHILS % (MAN) 94 % (42-78); TOTAL CELLS COUNTED 100
[2019-09-28 06:08] LABS: ANISOCYTOSIS 2+; PLATELET COMMENT ADEQUATE
[2019-09-28 06:09] LABS: HYPOCHROMASIA 1+
[2019-09-28 06:10] LABS: BURR CELLS SLIGHT; OVALOCYTES SLIGHT; POLYCHROMASIA SLIGHT
[2019-09-28] MEDS: INSULIN LISPRO 100 UNIT/ML 3 ML VIAL SUBCUT SCH ×4 (08:00→22:01)
[2019-09-28] MEDS: PREDNISONE 20 MG TABLET PO SCH (09:58)
[2019-09-28] MEDS: NYSTATIN TOPICAL POWDER 15 GM TP SCH ×3 (09:58→17:00)
--- NOTE | 2019-09-28 12:26 | PDOC PROGRESS REPORT ---
Subjective Progress Note for:: 09/28/19 Subjective:: Patient seen by the bedside, complaining of pain of the knees Reason For Visit: ACUTE HYPERCAPNIC RESPIRATORY FAILURE,EXTENSIVE Physical Exam Vital Signs: Temp Pulse Resp BP Pulse Ox 98.3 F 66 19 111/73 95 09/28/19 11:19 09/28/19 11:19 09/28/19 11:19 09/28/19 11:19 09/28/19 10:41 Intake & Output 09/27/19 09/28/19 09/29/19 06:59 06:59 06:59 Intake Total 450 2019 345 Output Total 2950 450 Balance 450 -191 -105 Weight 90.4 kg 88.1 kg General appearance: PRESENT: no acute distress Eye exam: PRESENT: PERRLA Respiratory exam: PRESENT: clear to auscultation oh Cardiovascular exam: PRESENT: +S1, +S2 GI/Abdominal exam: PRESENT: soft Neurological exam: PRESENT: alert Results Laboratory Results: 09/28/19 04:18 09/27/19 03:17 09/28/19 04:18 WBC 10.8 H RBC 3.84 Hgb 9.5 L Hct 30.7 L MCV 80 MCH 24.7 L MCHC 30.9 L RDW 18.6 H Plt Count 256 Seg Neutrophils % Not Reportable 09/26/19 09/26/19 09/26/19 12:44 12:44 20:11 Creatine Kinase 56 CK-MB (CK-2) Troponin I 0.045 NT-Pro-B Natriuret Pep 9580 H 8430 H 09/26/19 09/26/19 09/27/19 20:11 20:11 03:17 Creatine Kinase 64 53 CK-MB (CK-2) 2.98 Troponin I 0.036 NT-Pro-B Natriuret Pep 09/27/19 09/27/19 09/27/19 03:17 08:25 08:25 Creatine Kinase 53 CK-MB (CK-2) 2.62 2.74 Troponin I 0.023 0.024 NT-Pro-B Natriuret Pep Impressions: Chest X-Ray 09/26/19 11:49 IMPRESSION: CARDIAC ENLARGEMENT. VASCULAR CONGESTION. Venous Doppler Study 09/26/19 14:49 IMPRESSION: Study slightly limited by edema. No evidence of acute DVT or SVT. Assessment & Plan - Diagnosis (1) Acute hypercapnic respiratory failure Is this a current diagnosis for this admission?: Yes Plan: Patient presently not requiring BiPAP (2) Acute respiratory acidosis Is this a current diagnosis for this admission?: Yes (3) Rheumatoid arthritis Qualifiers: Rheumatoid arthritis location: multiple sites Rheumatoid factor presence: with rheumatoid factor Qualified Code(s): M05.79 - Rheumatoid arthritis with rheumatoid factor of multiple sites without organ or systems involvement Is this a current diagnosis for this admission?: Yes Plan: continue prednisone (4) Acute kidney injury Is this a current diagnosis for this admission?: Yes (5) Cellulitis of lower extremity Qualifiers: Laterality: right Qualified Code(s): L03.115 - Cellulitis of right lower limb Is this a current diagnosis for this admission?: Yes Plan: She will continue present IV antibiotic for cellulitis (6) Type 2 diabetes mellitus Qualifiers: Diabetes mellitus ferry terminal supervisor insulin use: without ferry terminal supervisor use Diabetes mellitus complication status: with neurologic complications Diabetes mellitus complication detail: with polyneuropathy Qualified Code(s): E11.42 - Type 2 diabetes mellitus with diabetic polyneuropathy Is this a current diagnosis for this admission?: Yes (7) Dementia Qualifiers: Dementia type: Alzheimer's disease Alzheimer's disease onset: late-onset Dementia behavioral disturbance: without behavioral disturbance Qualified Code(s): G30.1 - Alzheimer's disease with late onset; F02.80 - Dementia in other diseases classified elsewhere without behavioral disturbance Is this a current diagnosis for this admission?: Yes (8) Hypothyroidism Qualifiers: Hypothyroidism type: unspecified Is this a current diagnosis for this admission?: Yes (9) Severe pulmonary arterial systolic hypertension Is this a current diagnosis for this admission?: Yes - Time Time Spent with patient: 35 or more minutes Level of Care: IMCU Medications reviewed and adjusted accordingly: Yes Anticipated discharge: Home Anticipated DC Timeframe: within 72 hours
[2019-09-28] MEDS ORDERED: LOSARTAN POTASSIUM 25 MG TABLET PO SCH (13:00)
[2019-09-28] MEDS: DULOXETINE HCL 30 MG CAPSULE.DR PO SCH (13:18)
[2019-09-28] MEDS: BUSPIRONE HCL 10 MG TABLET PO SCH ×2 (13:19→22:02)
[2019-09-28 14:41] LABS: ALBUMIN 3.4 g/dL (3.5-5.0); ALKALINE PHOSPHATASE 83 U/L (38-126); ANION GAP 6 (5-19); ASPARTATE AMINO TRANSFERASE 24 U/L (14-36); BILIRUBIN,DIRECT 0.1 mg/dL (0.0-0.4); BILIRUBIN,TOTAL 0.4 mg/dL (0.2-1.3); BLOOD UREA NITROGEN 34 mg/dL (7-20); CALCIUM 8.2 mg/dL (8.4-10.2); CARBON DIOXIDE 31 mmol/L (22-30); CHLORIDE 98 mmol/L (98-107); GLUCOSE 112 mg/dL (75-110); POTASSIUM 5.5 mmol/L (3.6-5.0); TOTAL PROTEIN 6.8 g/dL (6.3-8.2)
[2019-09-28] MEDS: FLUTICASONE/UMECLIDIN/VILANTER 100-62.5-25 MCG/DOSE IH SCH (15:16)
[2019-09-28] MEDS ORDERED: VANCOMYCIN HCL INJ 1000 MG VIAL ONE (21:51)
[2019-09-28] MEDS: VANCOMYCIN HCL 750 MG in DEXTROSE 5%-WATER 250 ML IV SCH (23:05)
[2019-09-29] MEDS: HEPARIN SOD (PORCINE) 5,000 UNIT/ML 1 ML VIAL SUBCUT SCH ×2 (06:09→13:26)
[2019-09-29] MEDS: LEVOTHYROXINE SODIUM 0.1 MG TABLET PO SCH (06:10)
[2019-09-29] MEDS: LEVOTHYROXINE SODIUM 0.15 MG TABLET PO SCH (06:10)
[2019-09-29] MEDS: AZTREONAM 1 GM in DEXTROSE 5%-WATER 50 ML IV SCH ×2 (06:10→13:27)
[2019-09-29 07:06] LABS: ABSOLUTE BASOPHILS # (AUTO) 0.1 10^3/uL (0.0-0.2); ABSOLUTE LYMPHOCYTES (AUTO) 0.8 10^3/uL (0.5-4.7); ABSOLUTE MONOCYTES (AUTO) 0.6 10^3/uL (0.1-1.4); ABSOLUTE NEUT (AUTO) 8.2 10^3/uL (1.7-8.2); BASOPHILS % (AUTO) 0.7 % (0-2); EOSINOPHILS % (AUTO) 0.2 % (0-6); HEMATOCRIT 28.6 % (36.0-47.0); HEMOGLOBIN 8.7 g/dL (12.0-15.5); LYMPHOCYTES % (AUTO) 8.5 % (13-45); MEAN CORPUSCULAR HEMOGLOBIN 24.3 pg (27.0-33.4); MEAN CORPUSCULAR HGB CONC 30.3 g/dL (32.0-36.0); MEAN CORPUSCULAR VOLUME 80 fl (80-97); PLATELET COUNT 268 10^3/uL (150-450); RED BLOOD COUNT 3.56 10^6/uL (3.72-5.28); RED CELL DISTRIBUTION WIDTH 18.8 % (11.5-14.0); SEGMENTED NEUTROPHILS % (AUTO) 84.6 % (42-78); TOTAL CELLS COUNTED % (AUTO) 100 %; WHITE BLOOD COUNT 9.7 10^3/uL (4.0-10.5)
[2019-09-29] MEDS: INSULIN LISPRO 100 UNIT/ML 3 ML VIAL SUBCUT SCH ×3 (08:02→16:57)
[2019-09-29] MEDS: LOSARTAN POTASSIUM 25 MG TABLET PO SCH ×2 (08:34→09:47)
[2019-09-29] MEDS: BUSPIRONE HCL 10 MG TABLET PO SCH (09:45)
[2019-09-29] MEDS: PREDNISONE 20 MG TABLET PO SCH (09:45)
[2019-09-29] MEDS: DULOXETINE HCL 30 MG CAPSULE.DR PO SCH (09:45)
[2019-09-29] MEDS: FLUTICASONE/UMECLIDIN/VILANTER 100-62.5-25 MCG/DOSE IH SCH (09:56)
[2019-09-29] MEDS: NYSTATIN TOPICAL POWDER 15 GM TP SCH ×3 (09:56→17:51)
[2019-09-29 16:28] VITALS: BP 138/51
[2019-09-29] MEDS: ACETAMINOPHEN 325 MG TABLET PO PRN (17:06)
--- NOTE | 2019-09-29 18:38 | Death Summary ---
Summary Date : 09/29/19 Time of :: 18:22 Autopsy: No Resuscitation Status: Do Not Resuscitate - Final Diagnosis (1) Acute hypercapnic respiratory failure Is this a current diagnosis for this admission?: Yes (2) Acute respiratory acidosis Is this a current diagnosis for this admission?: Yes (3) Rheumatoid arthritis Is this a current diagnosis for this admission?: Yes (4) Acute kidney injury Is this a current diagnosis for this admission?: Yes (5) Cellulitis of lower extremity Is this a current diagnosis for this admission?: Yes (6) Type 2 diabetes mellitus Is this a current diagnosis for this admission?: Yes (7) Dementia Is this a current diagnosis for this admission?: Yes (8) Hypothyroidism Is this a current diagnosis for this admission?: Yes (9) Severe pulmonary arterial systolic hypertension Is this a current diagnosis for this admission?: Yes Hospital Course:: Patient with multiple comorbid conditions including severe pulmonary hypertension complicated with chronic venous hypertension of the lower extremities, multiple hospitalizations, underlying dementia, she presented with acute hypercapnic respiratory failure requiring noninvasive positive pressure ventilation, acute kidney injury, bilateral lower extremity cellulitis, she was treated with IV antibiotic, patient is a DNR status overall poor prognosis, she developed asystolic, agonal breathing and while in the hospital
[2019-09-29] MEDS ORDERED: VANCOMYCIN HCL 1,250 MG in DEXTROSE 5%-WATER 250 ML IV SCH (22:00)
--- NOTE | 2019-10-03 20:37 | Progress Note ---
Provider Note Provider Note: This is in response to the query she does not have CHF, she has severe pulmonary hypertension, the ejection fraction of the left ventricle is preserved and there is no diastolic dysfunction
== END 2019-09-29 23:30 | DRG 189 ==
LOC: ER 11:29 → EH 16:29 → 3N 20:52 → 5 09-28 19:41
PROVIDERS: ADMIT Internal Medicine; ATTEND Internal Medicine
PROC: 5A09457 Assistance with Respiratory Ventilation, 24-96 Consecutive Hours, Continuous Positive Airway Pressure (ICD-10-PCS; principal; 2019-09-26)
DX: J96.02 Acute respiratory failure with hypercapnia (principal); L03.116 Cellulitis of left lower limb; E87.2 Acidosis; N17.9 Acute kidney failure, unspecified; L03.115 Cellulitis of right lower limb; B96.20 Unspecified Escherichia coli [E. coli] as the cause of diseases classified elsewhere; M06.9 Rheumatoid arthritis, unspecified; E03.9 Hypothyroidism, unspecified; I27.21 Secondary pulmonary arterial hypertension; I87.303 Chronic venous hypertension (idiopathic) without complications of bilateral lower extremity; J44.9 Chronic obstructive pulmonary disease, unspecified; E11.51 Type 2 diabetes mellitus with diabetic peripheral angiopathy without gangrene; I10 Essential (primary) hypertension; K21.9 Gastro-esophageal reflux disease without esophagitis; F17.200 Nicotine dependence, unspecified, uncomplicated; F32.9 Major depressive disorder, single episode, unspecified; M05.79 Rheumatoid arthritis with rheumatoid factor of multiple sites without organ or systems involvement; Z66 Do not resuscitate; E11.42 Type 2 diabetes mellitus with diabetic polyneuropathy; G30.1 Alzheimer's disease with late onset; F02.80 Dementia in other diseases classified elsewhere, unspecified severity, without behavioral disturbance, psychotic disturbance, mood disturbance, and anxiety; Z11.59 Encounter for screening for other viral diseases; Z99.81 Dependence on supplemental oxygen; Z91.14 Patient's other noncompliance with medication regimen; Z79.899 Other long term (current) drug therapy; Z79.890 Hormone replacement therapy; Z88.6 Allergy status to analgesic agent; Z88.1 Allergy status to other antibiotic agents; Z91.011 Allergy to milk products; Z88.8 Allergy status to other drugs, medicaments and biological substances; Z91.018 Allergy to other foods; Z91.048 Other nonmedicinal substance allergy status
CPT/HCPCS: 36415; 71045; 80053; 80061; 80307; 81001; 82140; 82150; 82550; 82553; 82803; 82962; 83036; 83690; 83735; 83880; 84100; 84132; 84439; 84443; 84484; 85025; 85379; 85610; 85730; 87040; 87086; 87088; 87186; 87635; 93005; 93010; 93970; 94660; 96365; 96375; 99285; C9803; J1644; J1815; J1940; J3370; J3490; J7060; J7512